=== PATIENT | female | born 1980 | race Caucasian/White ===

== ENCOUNTER 2017-02-15 20:11 | Emergency (ER) | payer MEDICAID, OTHER ==
[2017-02-15 20:36] VITALS: BP 118/74
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
== END 2017-02-15 21:21 | disposition home or self-care (01) ==
LOC: VM.ED 20:11
DX: S92.511A Displaced fracture of proximal phalanx of right lesser toe(s), initial encounter for closed fracture (principal); E11.9 Type 2 diabetes mellitus without complications; F32.9 Major depressive disorder, single episode, unspecified; F41.9 Anxiety disorder, unspecified; Z79.4 Long term (current) use of insulin; W22.03XA Walked into furniture, initial encounter
CPT/HCPCS: 73630-RT; 99283

== ENCOUNTER 2017-03-19 18:56 | Emergency (ER) | payer MEDICAID ==
[2017-03-19 19:46] VITALS: BP 129/79
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
== END 2017-03-19 21:57 | disposition home or self-care (01) ==
LOC: VM.ED 18:56
DX: S09.90XA Unspecified injury of head, initial encounter (principal); S13.4XXA Sprain of ligaments of cervical spine, initial encounter; S00.93XA Contusion of unspecified part of head, initial encounter; E10.9 Type 1 diabetes mellitus without complications; F41.9 Anxiety disorder, unspecified; Y09 Assault by unspecified means
CPT/HCPCS: 70450; 72125; 99285

== ENCOUNTER 2017-04-17 07:07 | Emergency (ER) | payer MEDICAID ==
[2017-04-17] MEDS ORDERED: Tetracaine HCl/PF 0.5% 4 ML Bottle EYERT ONE (07:23)
[2017-04-17] MEDS ORDERED: Fluorescein 1 MG Ophth Strip EYERT ONE (07:24)
[2017-04-17 07:32] VITALS: BP 138/88
--- NOTE | 2017-04-17 07:43 | EDM.PDOC ---
ED HPI GENERAL MEDICAL PROBLEM - General Chief Complaint: Eye Problems Stated Complaint: Patient stated she woke up this morning and "felt a rip when she opened her right eye" with onset of severe pain right eye with eye closed and with movement. Time Seen by Provider: 04/17/17 07:13 Source of Information: Reports: Patient History Limitations: Reports: No Limitations - History of Present Illness INITIAL COMMENTS - FREE TEXT/NARRATIVE: Patient wears contact but takes them out daily at bedtime. No complaints of eye issues when she went to bed last night. Patient also has Type 1 diabetes with poor control. BS run in 200-300 range. She urinates frequently and tends to have very dry mucous membranes per her report. 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: Other (see below) (none) Right Eye Pain Score (Numeric/FACES): 9 - Related Data Allergies Allergy/AdvReac Type Severity Reaction Status Date / Time No Known Allergies Allergy Verified 04/17/17 07:18 Home Meds: Home Meds Insulin Glarg,Human.Rec.Analog [LantUS] 30 unit SUBCUT BEDTIME 02/15/17 [History ] Insulin Lispro [Humalog] 1 unit SQ ASDIRECTED 02/15/17 [History] Sertraline HCl [Zoloft] 200 mg PO DAILY 02/15/17 [History] clonazePAM [Klonopin] 1 mg PO TID PRN 02/15/17 [History] Lurasidone HCl [Latuda] 40 mg DAILY 04/17/17 [History] traZODone HCl [Trazodone HCl] 100 mg DAILY 04/17/17 [History] Past Medical History HEENT History: Reports: Impaired Vision Gastrointestinal History: Reports: Irritable Bowel Syndrome Genitourinary History: Reports: Urinary Incontinence Psychiatric History: Reports: Anxiety Endocrine/Metabolic History: Reports: Diabetes, Type I Other Endocrine/Metabolic History: 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 Constitutional: Reports: No Symptoms HEENT: Reports: Eye Pain (unable to open right eye due to discomfort, mild right eyelid edema) Respiratory: Reports: No Symptoms. Denies: Shortness of Breath, Cough Cardiovascular: Reports: No Symptoms. Denies: Chest Pain, Dyspnea on Exertion, Palpitations Endocrine: Reports: Other (tends to run high blood sugars, see HPI) GI/Abdominal: Reports: No Symptoms. Denies: Abdominal Pain, Nausea, Vomiting Musculoskeletal: Reports: No Symptoms Skin: Reports: No Symptoms Neurological: Reports: No Symptoms Psychiatric: Reports: No Symptoms Hematologic/Lymphatic: Reports: No Symptoms Immunologic: Reports: No Symptoms ED EXAM GENERAL W FULL EYE - Physical Exam Exam: See Below Exam Limited By: No Limitations General Appearance: Alert, WD/WN, Anxious, Other (unable to open right eye due to pain) Eye Exam: Right Eye: Corneal Abrasion (right eye numbed with one drop tetracaine and stained with fluoroscein. Examined with blue light and magnification. Anterior cornea shows mild diffuse corneal uptake of stain in a narrow strip across the iris. No opal ulcerations noted. Eyelash present under lower lid removed with sterile Q tip. No maeve foreign bodies or ulcerations noted on exam. Anterior chamber clear. Tetracaine drop completely resolved eye pain so like corneal surface irritation is source of pain.) Eyelids: Right: Edema (mild lid edema without redness), Foreign Body (eyelash under right lower lid), Lid Everted for Exam, Left: Normal Appearance (colored contact present) Conjunctiva & Sclera: Right: Injected, Left: Normal Appearance Cornea Exam: Right: Corneal Abrasion, Foreign Body, Examined with Flourescein, Left: Normal Appearance Extraocular Movements: Bilateral: Intact Pupils: Normal Accommodation Pupillary Size: Bilateral: 6 mm Pupillary Reaction: Bilateral: Brisk Anterior Chamber: Right: Normal Appearance Ears: Normal External Exam, Normal TMs Nose: Normal Inspection Throat/Mouth: Other (lips mouth and tounge very dry) Head: Atraumatic, Normocephalic Neck: Normal Inspection, Supple, Non-Tender Respiratory/Chest: Lungs Clear, Normal Breath Sounds, No Accessory Muscle Use Cardiovascular: Regular Rate, Rhythm, No JVD, No Murmur, No Rub GI/Abdominal: Soft (Female) Exam: Deferred Rectal (Female) Exam: Deferred Back Exam: Other (deferred) Extremities: Other (deferred) Neurological: Alert, Oriented, CN II-XII Intact Psychiatric: Normal Affect Skin Exam: Warm, Dry, Intact, Normal Color Lymphatic: No Adenopathy ED EYE w/ Add Procedure - Eye Procedure Alcaine Drops Administered: Yes (tetracaine applied to right eye with immediate , complete relief of pain) Eye FB Removal: Removal w/ Cotton Swab (eyelash under right lower eyelid) Eye Irrigated w/ Saline (ccs): 10 Progress: Patient noted complete relief of pain after administration of tetracaine into right eye. The ripping feeling she had this morning was likely adherence of the upper eyelid to cornea due to dryness during the night. No pain noted with eye movements after drop applied. Course - Vital Signs Last Recorded V/S: Last Vital Signs Temp 35.9 C 04/17/17 07:10 Pulse 65 04/17/17 07:10 Resp 16 04/17/17 07:10 BP 138/88 04/17/17 07:10 Pulse Ox - Orders/Labs/Meds Meds: Medications Discontinued Medications Generic Name Dose Route Start Last Admin Trade Name Jana PRN Reason Stop Dose Admin Fluorescein Sodium 1 mg 04/17/17 07:24 04/17/17 07:30 Ful-Janet EYERT 04/17/17 07:25 1 mg ONETIME ONE Administration Tetracaine HCl 1 ml 04/17/17 07:23 04/17/17 07:29 Tetracaine 0.5% Steri-Unit Sendy EYERT 04/17/17 07:24 2 drop ONETIME ONE Administration - Re-Assessments/Exams Free Text/Narrative Re-Assessment/Exam: 04/17/17 08:22 eye exam as noted. Pupils PERRLA and EOMI intact after eye numbed up Departure - Departure Time of Disposition: 07:57 Disposition: Home, Self-Care 01 Condition: Good Clinical Impression: Corneal abrasion Qualifiers: Encounter type: initial encounter Laterality: right Qualified Code(s): S05.01XA - Injury of conjunctiva and corneal abrasion without foreign body, right eye, initial encounter - Discharge Information Instructions: Bacterial Conjunctivitis, [id number] Referrals: Josie Leos, [employer] SERVICE TECHNICIAN [Primary Care Provider] - Forms: ED Department Discharge Additional Instructions: Use antibiotic eye drop one frop right eye four times daily for five days. Tylenol 1000 mg every 8 hours. Take your first day when you get home today. Make an appt with an bead cutter as soon as possible for an eye exam. MLP Sign Off - Signature Requirements MLP Sign Off: Yes
== END 2017-04-17 07:55 | disposition home or self-care (01) ==
LOC: VM.ED 07:07
DX: S05.01XA Injury of conjunctiva and corneal abrasion without foreign body, right eye, initial encounter (principal); F41.9 Anxiety disorder, unspecified; E10.9 Type 1 diabetes mellitus without complications; F17.210 Nicotine dependence, cigarettes, uncomplicated; Z79.899 Other long term (current) drug therapy; X58.XXXA Exposure to other specified factors, initial encounter; Z79.4 Long term (current) use of insulin
CPT/HCPCS: 99283; A9270

== ENCOUNTER 2017-12-19 10:44 | Emergency (ER) | payer MEDICAID ==
[2017-12-19] MEDS ORDERED: Sodium Chloride 0.9% 1,000 ML IV ONE ×2 (11:10→11:39)
[2017-12-19] MEDS ORDERED: Ondansetron 4 MG/2 ML SDV IVPUSH ONE (11:13)
[2017-12-19] MEDS ORDERED: Morphine 4 MG/ML Syringe IVPUSH ONE (11:13)
[2017-12-19] MEDS ORDERED: GI Cocktail Oral Solution 30 ML PO ONE (11:34)
[2017-12-19] MEDS ORDERED: HYDROmorphone 1 MG/ML Syringe IVPUSH ONE (11:34)
--- NOTE | 2017-12-19 11:35 | EDM.PDOC ---
ED HPI GENERAL MEDICAL PROBLEM - General Chief Complaint: Gastrointestinal Problem Stated Complaint: nausea, vomiting, abdominal pain Time Seen by Provider: 12/19/17 11:28 Source of Information: Reports: Patient History Limitations: Reports: No Limitations - History of Present Illness INITIAL COMMENTS - FREE TEXT/NARRATIVE: Patient presents with reports of abdominal pain. She states that this is about 6 -7 days old. She was diagnosed with a urinary tract infection and treated with Bactrim over the last week. Her primary physician is Elza Giraldo at [facility] here in [place]. She is experiencing pain to the left upper abdomen. She rates it as a pressure. Rates pain a 10/10 and is crying on observation. Blood sugar elevated on accu check POC. Onset: Gradual Onset Date: 12/11/17 Duration: Getting Worse Location: Reports: Abdomen Quality: Reports: Pressure Severity: Severe Improves with: Reports: None Worsens with: Reports: Movement Associated Symptoms: Reports: Nausea/Vomiting Headache Pain Score (Numeric/FACES): 8 Epigastric Pain Score (Numeric/FACES): 8 - Related Data Allergies Allergy/AdvReac Type Severity Reaction Status Date / Time ibuprofen AdvReac Stomach Verified 12/19/17 11:24 Upset Home Meds: Home Meds Insulin Glarg,Human.Rec.Analog [LantUS] 35 unit SUBCUT BEDTIME 02/15/17 [History ] Insulin Lispro [Humalog] 1 unit SQ ASDIRECTED 02/15/17 [History] Sertraline HCl [Zoloft] 200 mg PO DAILY 02/15/17 [History] clonazePAM [Klonopin] 1 mg PO TID PRN 02/15/17 [History] Lurasidone HCl [Latuda] 40 mg DAILY 04/17/17 [History] traZODone HCl [Trazodone HCl] 200 mg DAILY 04/17/17 [History] Cyclobenzaprine HCl 1 tab PO TID 10 Days #30 tablet 07/09/17 [Rx] Diazepam [Valium] 10 mg PO BEDTIME 07/09/17 [History] Mupirocin Calcium [Bactroban] 1 dose TP TID 07/09/17 [History] Olopatadine [Patanol 0.1% Ophth Soln] 1 drop EYEBOTH BID 07/09/17 [History] Pregabalin [Lyrica] 200 mg PO BID 07/09/17 [History] atorvaSTATin [Lipitor] 10 mg PO BEDTIME 07/09/17 [History] hydrOXYzine HCl [Atarax] 25 mg PO BEDTIME 07/09/17 [History] Sulfamethoxazole/Trimethoprim [Bactrim Ds Tablet] 1 each PO BID 12/19/17 [ History] Past Medical History HEENT History: Reports: Impaired Vision Gastrointestinal History: Reports: Irritable Bowel Syndrome Other Gastrointestinal History: acid reflux Genitourinary History: Reports: Urinary Incontinence Psychiatric History: Reports: Anxiety Endocrine/Metabolic History: Reports: Diabetes, Type I Other Endocrine/Metabolic History: 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 - Past Surgical History GI Surgical History: Reports: Other (See Below) Other GI Surgeries/Procedures: Esophagus/ stomach repair Musculoskeletal Surgical History: Reports: Hip Replacement Social & Family History - Tobacco Use Smoking Status *Q: Current Every Day Smoker Years of Tobacco use: 14 Packs/Tins Daily: 1 - Recreational Drug Use Recreational Drug Use: No ED ROS GENERAL - Review of Systems Review Of Systems: See Below Constitutional: Reports: No Symptoms HEENT: Reports: No Symptoms Respiratory: Reports: No Symptoms Cardiovascular: Reports: No Symptoms Endocrine: Reports: No Symptoms GI/Abdominal: Reports: Abdominal Pain, Diarrhea, Nausea, Vomiting : Reports: No Symptoms Musculoskeletal: Reports: No Symptoms Skin: Reports: No Symptoms Neurological: Reports: No Symptoms Psychiatric: Reports: No Symptoms Hematologic/Lymphatic: Reports: No Symptoms Immunologic: Reports: No Symptoms ED EXAM, GI/ABD - Physical Exam Exam: See Below Exam Limited By: No Limitations General Appearance: Alert, WD/WN, Moderate Distress Eyes: Bilateral: Normal Appearance, EOMI Ears: Normal TMs Head: Atraumatic, Normocephalic Neck: Normal Inspection, Supple, Non-Tender, Full Range of Motion Respiratory/Chest: No Respiratory Distress, Lungs Clear, Normal Breath Sounds, No Accessory Muscle Use, Chest Non-Tender Cardiovascular: Normal Peripheral Pulses, Regular Rate, Rhythm, No Edema, No Gallop, No JVD, No Murmur, No Rub GI/Abdominal Exam: Normal Bowel Sounds, Soft, No Organomegaly, No Distention, No Mass, Tender Back Exam: Normal Inspection, Full Range of Motion, NT Extremities: Normal Inspection, Normal Range of Motion, Non-Tender, Normal Capillary Refill, No Pedal Edema Neurological: Alert, Oriented, CN II-XII Intact, Normal Cognition, Normal Gait, Normal Reflexes, No Motor/Sensory Deficits Psychiatric: Normal Affect, Normal Mood Skin Exam: Warm, Dry, Intact, Normal Color, No Rash Lymphatic: No Adenopathy Course - Vital Signs Last Recorded V/S: Last Vital Signs Temp 35.3 C 12/19/17 11:25 Pulse 80 12/19/17 15:10 Resp 16 12/19/17 15:10 BP 148/85 H 12/19/17 15:10 Pulse Ox 99 12/19/17 15:10 - Orders/Labs/Meds Orders: Active Orders 24 hr Category Date Time Status Abdomen Pelvis w Cont [CT] Stat Exams 12/19/17 11:39 Taken HCG QUALITATIVE,URINE [URCHEM] Stat Lab 12/19/17 12:07 Ordered UA W/MICROSCOPIC [URIN] Stat Lab 12/19/17 12:07 Ordered Labs: Laboratory Tests 12/19/17 12/19/17 12/19/17 Range/Units 10:55 11:13 11:13 WBC 8.3 (4.0-10.0) x10^3/uL RBC 5.89 H (4.00-5.50) x10^6/uL Hgb 16.5 H (12.0-16.0) g/dL Hct 45.7 (33.0-47.0) % MCV 77.6 L (78.0-93.0) fL MCH 28.0 (26.0-32.0) pg MCHC 36.1 H (32.0-36.0) g/dL RDW Coeff of Roderick 14.4 (10.0-15.0) % Plt Count 300 (130-400) x10^3/uL Neut % (Auto) 76.0 (50.0-80.0) % Lymph % (Auto) 18.8 L (25.0-50.0) % Gage % (Auto) 3.9 (2.0-11.0) % Eos % (Auto) 0.6 (0.0-4.0) % Baso % (Auto) 0.7 (0.2-1.2) % Sodium 132 L (136-145) mmol/L Potassium 4.4 (3.5-5.1) mmol/L Chloride 98 (98-107) mmol/L Carbon Dioxide 11 L (21-32) mmol/L Anion Gap 27.4 BUN 9 (7-18) mg/dL Creatinine 1.0 (0.55-1.02) mg/dL Est Cr Clr Drug Dosing 82.06 mL/min Estimated GFR (MDRD) > 60 Glucose 353 H (74-106) mg/dL POC Glucose 320 H (74-106) mg/dL Calcium 8.6 (8.5-10.1) mg/dL Corrected Calcium 8.44 L (8.5-10.1) mg/dL Total Bilirubin 0.7 (0.2-1.0) mg/dL AST 15 (15-37) U/L ALT 17 (14-59) U/L Alkaline Phosphatase 153 H (46-116) U/L Total Protein 8.4 H (6.4-8.2) g/dL Albumin 4.2 (3.4-5.0) g/dL Globulin 4.2 Albumin/Globulin Ratio 1.00 Amylase (25-115) U/L Urine Color (YELLOW) Urine Appearance (CLEAR) Urine pH (5.0-8.0) Ur Specific Dodson Urine Protein (NEGATIVE) mg/dL Urine Glucose (UA) (NEGATIVE) mg/dL Urine Ketones (NEGATIVE) mg/dL Urine Occult Blood (NEGATIVE) Urine Nitrite (NEGATIVE) Urine Bilirubin (NEGATIVE) Urine Urobilinogen (0.2) EU/dL Ur Leukocyte Esterase (NEGATIVE) Urine RBC (NOT SEEN) /HPF Urine WBC (NOT SEEN) /HPF Ur Squamous Epith Cells (NEGATIVE) /HPF Urine Bacteria (NEGATIVE) /HPF Urine Mucus (NEGATIVE) /LPF Urine HCG, Qual (NEGATIVE) 12/19/17 12/19/17 12/19/17 Range/Units 11:13 12:07 12:07 WBC (4.0-10.0) x10^3/uL RBC (4.00-5.50) x10^6/uL Hgb (12.0-16.0) g/dL Hct (33.0-47.0) % MCV (78.0-93.0) fL MCH (26.0-32.0) pg MCHC (32.0-36.0) g/dL RDW Coeff of Roderick (10.0-15.0) % Plt Count (130-400) x10^3/uL Neut % (Auto) (50.0-80.0) % Lymph % (Auto) (25.0-50.0) % Gage % (Auto) (2.0-11.0) % Eos % (Auto) (0.0-4.0) % Baso % (Auto) (0.2-1.2) % Sodium (136-145) mmol/L Potassium (3.5-5.1) mmol/L Chloride (98-107) mmol/L Carbon Dioxide (21-32) mmol/L Anion Gap BUN (7-18) mg/dL Creatinine (0.55-1.02) mg/dL Est Cr Clr Drug Dosing mL/min Estimated GFR (MDRD) Glucose (74-106) mg/dL POC Glucose (74-106) mg/dL Calcium (8.5-10.1) mg/dL Corrected Calcium (8.5-10.1) mg/dL Total Bilirubin (0.2-1.0) mg/dL AST (15-37) U/L ALT (14-59) U/L Alkaline Phosphatase (46-116) U/L Total Protein (6.4-8.2) g/dL Albumin (3.4-5.0) g/dL Globulin Albumin/Globulin Ratio Amylase 6 L (25-115) U/L Urine Color Light yellow (YELLOW) Urine Appearance Slightly cloudy H (CLEAR) Urine pH 5.5 (5.0-8.0) Ur Specific Dodson >=1.030 Urine Protein 30 H (NEGATIVE) mg/dL Urine Glucose (UA) 500 H (NEGATIVE) mg/dL Urine Ketones 80 H (NEGATIVE) mg/dL Urine Occult Blood Negative (NEGATIVE) Urine Nitrite Negative (NEGATIVE) Urine Bilirubin Small H (NEGATIVE) Urine Urobilinogen 0.2 (0.2) EU/dL Ur Leukocyte Esterase Negative (NEGATIVE) Urine RBC 0-5 (NOT SEEN) /HPF Urine WBC 0-5 (NOT SEEN) /HPF Ur Squamous Epith Cells Many H (NEGATIVE) /HPF Urine Bacteria Not seen (NEGATIVE) /HPF Urine Mucus Not seen (NEGATIVE) /LPF Urine HCG, Qual Negative (NEGATIVE) Meds: Medications Discontinued Medications Generic Name Dose Route Start Last Admin Trade Name Freq PRN Reason Stop Dose Admin Al Hydroxide/Mg Hydroxide 30 ml 04/15/18 11:34 12/19/17 11:37 Gi Cocktail PO 12/19/17 11:35 30 ml ONETIME ONE Administration Hydromorphone HCl 1 mg 12/19/17 11:34 12/19/17 11:37 Dilaudid IVPUSH 12/19/17 11:35 1 mg ONETIME ONE Administration Sodium Chloride 1,000 mls @ 999 mls/hr 12/19/17 11:10 12/19/17 11:20 Normal Saline IV 12/19/17 12:10 999 mls/hr ONETIME ONE Administration Sodium Chloride 1,000 mls @ 999 mls/hr 12/19/17 11:39 12/19/17 13:10 Normal Saline IV 12/19/17 12:39 999 mls/hr ONETIME ONE Administration Iopamidol 100 ml 12/19/17 12:41 12/19/17 13:28 Isovue-300 (61%) IVPUSH 12/19/17 12:42 100 ml ONETIME ONE Administration Morphine Sulfate 4 mg 12/19/17 11:13 12/19/17 11:20 Morphine IVPUSH 12/19/17 11:14 4 mg ONETIME ONE Administration Ondansetron HCl 4 mg 12/19/17 11:13 12/19/17 11:15 Zofran IVPUSH 12/19/17 11:14 4 mg ONETIME ONE Administration Ondansetron HCl 1 packet 12/19/17 14:09 12/19/17 14:16 Take Home: Ondansetron Odt 4 Mg, 2 Tab Pack PO 12/19/17 14:10 1 packet ONETIME ONE Administration Departure - Departure Time of Disposition: 14:10 Disposition: Home, Self-Care 01 Condition: Fair Clinical Impression: Abdominal pain - Discharge Information Instructions: Ondansetron oral dissolving tablet, Nausea and Vomiting, Adult, [id number], Abdominal Pain, Adult, [id number] Referrals: Josie Leos NP [Primary Care Provider] - Forms: ED Department Discharge Additional Instructions: Stay well hydrated. Your CT and labs did not indicate a acute reason for the abdominal pain you experienced. Your UTI is improving. No kidney involvement seen on urine screen. Take some tylenol as needed for additional pain management. Follow up with your primary doctor as symptoms warrant. Please call with any questions or concerns. - Problem List & Annotations (1) Abdominal pain SNOMED Code(s): 48737222 Code(s): R10.9 - UNSPECIFIED ABDOMINAL PAIN Status: Acute Priority: Low Current Visit: Yes - Problem List Review Problem List Initiated/Reviewed/Updated: Yes - My Orders Last 24 Hours: My Active Orders 12/19/17 11:39 Abdomen Pelvis w Cont [CT] Stat 12/19/17 12:07 HCG QUALITATIVE,URINE [URCHEM] Stat UA W/MICROSCOPIC [URIN] Stat - Assessment/Plan Last 24 Hours: My Active Orders 12/19/17 11:39 Abdomen Pelvis w Cont [CT] Stat 12/19/17 12:07 HCG QUALITATIVE,URINE [URCHEM] Stat UA W/MICROSCOPIC [URIN] Stat Assessment:: abdominal pain Plan: Stay well hydrated. Your CT and labs did not indicate a acute reason for the abdominal pain you experienced. Your UTI is improving. No kidney involvement seen on urine screen. Take some tylenol as needed for additional pain management. Follow up with your primary doctor as symptoms warrant. Please call with any questions or concerns.
[2017-12-19 11:49] LABS: CHLORIDE,CL 98 mmol/L (98-107); SODIUM,NA 132 mmol/L (136-145)
[2017-12-19] MEDS ORDERED: Iopamidol 612 MG/ML 100 ML Bottle IVPUSH ONE (12:41)
[2017-12-19] MEDS ORDERED: Take Home: Ondansetron 4 MG Tab.DIS, 2 Tab Pack PO ONE (14:09)
[2017-12-19 15:11] VITALS: BP 148/85
== END 2017-12-19 14:10 | disposition home or self-care (01) ==
LOC: VM.ED 10:44
DX: R10.12 Left upper quadrant pain (principal); R10.13 Epigastric pain; E10.9 Type 1 diabetes mellitus without complications; F41.9 Anxiety disorder, unspecified; F17.210 Nicotine dependence, cigarettes, uncomplicated; Z87.440 Personal history of urinary (tract) infections; Z88.6 Allergy status to analgesic agent; Z79.899 Other long term (current) drug therapy
CPT/HCPCS: 74177; 80053; 81001; 81025; 82150; 82962; 85025; 96361; 96374; 96375; 99284; A9270-GY; J1170; J2270; J2405; J7030; Q9967

== ENCOUNTER 2017-12-19 17:00 | Emergency (ER) | payer MEDICAID ==
[2017-12-19] MEDS ORDERED: Sodium Chloride 0.9% 10 ML Syringe FLUSH PRN (17:33)
[2017-12-19] MEDS ORDERED: GI Cocktail Oral Solution 30 ML PO ONE (17:33)
[2017-12-19] MEDS ORDERED: HYDROmorphone 1 MG/ML Syringe IVPUSH ONE (17:33)
[2017-12-19] MEDS ORDERED: Ondansetron 4 MG/2 ML SDV IVPUSH ONE (17:33)
[2017-12-19] MEDS ORDERED: LORazepam 2 MG/ML SDV IVPUSH ONE (17:34)
[2017-12-19] MEDS ORDERED: methylPREDNISolone Sodium Succinate 125 MG/2 ML SDV IVPUSH ONE (19:11)
[2017-12-19] MEDS ORDERED: Sodium Chloride 0.9% 1,000 ML IV ONE (19:11)
[2017-12-19] MEDS ORDERED: Pantoprazole 40 MG Vial IVPUSH ONE (19:12)
[2017-12-19 19:37] VITALS: BP 156/97
[2017-12-19] MEDS ORDERED: Take Home: Acetaminophen/HYDROcodone 325-10 MG, 5 Tab Pack PO ONE (20:20)
--- NOTE | 2017-12-19 21:14 | EDM.PDOC ---
ED HPI GENERAL MEDICAL PROBLEM - General Chief Complaint: Abdominal Pain Stated Complaint: abdominal pain Time Seen by Provider: 12/19/17 17:26 Source of Information: Reports: Patient History Limitations: Reports: No Limitations - History of Present Illness INITIAL COMMENTS - FREE TEXT/NARRATIVE: Patient was seen earlier today with similar complaints. She has upper abdominal pain. Prior labs and CT showed no acute process. No change in symptoms, just a return of them after her medications have worn off. Reports abdominal pain for 6-7 days Onset: Gradual Onset Date: 12/12/17 Duration: Intermittent Location: Reports: Abdomen Epigastric Pain Score (Numeric/FACES): 9 Headache Pain Score (Numeric/FACES): 9 - Related Data Allergies Allergy/AdvReac Type Severity Reaction Status Date / Time ibuprofen AdvReac Stomach Verified 12/19/17 11:24 Upset Home Meds: Home Meds Insulin Glarg,Human.Rec.Analog [LantUS] 35 unit SUBCUT BEDTIME 02/15/17 [History ] Insulin Lispro [Humalog] 1 unit SQ ASDIRECTED 02/15/17 [History] Sertraline HCl [Zoloft] 200 mg PO DAILY 02/15/17 [History] clonazePAM [Klonopin] 1 mg PO TID PRN 02/15/17 [History] Lurasidone HCl [Latuda] 40 mg DAILY 04/17/17 [History] traZODone HCl [Trazodone HCl] 200 mg DAILY 04/17/17 [History] Cyclobenzaprine HCl 1 tab PO TID 10 Days #30 tablet 07/09/17 [Rx] Diazepam [Valium] 10 mg PO BEDTIME 07/09/17 [History] Mupirocin Calcium [Bactroban] 1 dose TP TID 07/09/17 [History] Olopatadine [Patanol 0.1% Ophth Soln] 1 drop EYEBOTH BID 07/09/17 [History] Pregabalin [Lyrica] 200 mg PO BID 07/09/17 [History] atorvaSTATin [Lipitor] 10 mg PO BEDTIME 07/09/17 [History] hydrOXYzine HCl [Atarax] 25 mg PO BEDTIME 07/09/17 [History] Sulfamethoxazole/Trimethoprim [Bactrim Ds Tablet] 1 each PO BID 12/19/17 [ History] Past Medical History HEENT History: Reports: Impaired Vision Gastrointestinal History: Reports: Irritable Bowel Syndrome Other Gastrointestinal History: acid reflux Genitourinary History: Reports: Urinary Incontinence Other Genitourinary History: Current UTI Psychiatric History: Reports: Anxiety Endocrine/Metabolic History: Reports: Diabetes, Type I Other Endocrine/Metabolic History: 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 ED EXAM, GI/ABD - Physical Exam Exam: Not Obtained Course - Vital Signs Last Recorded V/S: Last Vital Signs Temp 37.1 C 12/19/17 17:25 Pulse 93 12/19/17 17:25 Resp 16 12/19/17 17:25 BP 156/97 H 12/19/17 19:00 Pulse Ox 98 12/19/17 19:00 - Orders/Labs/Meds Orders: Active Orders 24 hr Category Date Time Status Sodium Chloride 0.9% [Saline Flush] Med 12/19/17 17:33 Active 10 ml FLUSH ASDIRECTED PRN Saline Lock Insert [OM.PC] Routine Oth 12/19/17 17:33 Ordered Medication Orders Sodium Chloride (Saline Flush) 10 ml FLUSH ASDIRECTED PRN PRN Reason: Keep Vein Open Meds: Medications Generic Name Dose Route Start Last Admin Trade Name Freq PRN Reason Stop Dose Admin Sodium Chloride 10 ml 12/19/17 17:33 Saline Flush FLUSH ASDIRECTED PRN Keep Vein Open Discontinued Medications Generic Name Dose Route Start Last Admin Trade Name Freq PRN Reason Stop Dose Admin Hydrocodone Bitart/Acetaminophen 1 packet 12/19/17 20:20 12/19/17 21:23 Take Home: Acetaminophen/Hydrocodone 325-10mg PO 12/19/17 20:21 1 packet ONETIME ONE Administration Al Hydroxide/Mg Hydroxide 30 ml 12/19/17 17:33 12/19/17 17:40 Gi Cocktail PO 12/19/17 17:34 30 ml ONETIME ONE Administration Hydromorphone HCl 1 mg 12/19/17 17:33 12/19/17 17:39 Dilaudid IVPUSH 12/19/17 17:34 1 mg ONETIME ONE Administration Sodium Chloride 1,000 mls @ 999 mls/hr 12/19/17 19:11 12/19/17 19:27 Normal Saline IV 12/19/17 20:11 999 mls/hr ONETIME ONE Administration Lorazepam 0.5 mg 12/19/17 17:34 12/19/17 17:40 Ativan IVPUSH 12/19/17 17:35 0.5 mg ONETIME ONE Administration Methylprednisolone Sodium Succinate 125 mg 12/19/17 19:11 Solu-Medrol IVPUSH 12/19/17 19:12 ONETIME ONE Ondansetron HCl 4 mg 12/19/17 17:33 12/19/17 17:40 Zofran IVPUSH 12/19/17 17:34 4 mg ONETIME ONE Administration Pantoprazole Sodium 40 mg 12/19/17 19:12 12/19/17 19:28 Protonix Iv IVPUSH 12/19/17 19:13 40 mg ONETIME ONE Administration - Re-Assessments/Exams Free Text/Narrative Re-Assessment/Exam: 12/19/17 22:26 Patient given additional zofran, dilaudid, ativan, hydration. Given take home pack of hydrocodone. Re educated and encouraged to follow up at the clinic tomorrow. Departure - Departure Time of Disposition: 22:10 Disposition: Home, Self-Care 01 Condition: Fair Clinical Impression: Abdominal pain - Discharge Information Instructions: Nausea and Vomiting, Adult, [id number], Abdominal Pain, Adult, [id number] Referrals: Josie Leos [employer]CH[employer]IC [Primary Care Provider] - Forms: ED Department Discharge - My Orders Last 24 Hours: My Active Orders 12/19/17 17:33 Sodium Chloride 0.9% [Saline Flush] 10 ml FLUSH ASDIRECTED PRN Saline Lock Insert [OM.PC] Routine - Assessment/Plan Last 24 Hours: My Active Orders 12/19/17 17:33 Sodium Chloride 0.9% [Saline Flush] 10 ml FLUSH ASDIRECTED PRN Saline Lock Insert [OM.PC] Routine
== END 2017-12-19 22:10 | disposition home or self-care (01) ==
LOC: VM.ED 17:00
DX: R10.10 Upper abdominal pain, unspecified (principal); R10.13 Epigastric pain; E10.9 Type 1 diabetes mellitus without complications; F17.210 Nicotine dependence, cigarettes, uncomplicated; Z79.899 Other long term (current) drug therapy; Z88.6 Allergy status to analgesic agent
CPT/HCPCS: 96365; 96366; 96375; 99284; A9270-GY; C9113; J1170; J2060; J2405; J7030

== ENCOUNTER 2017-12-26 14:12 | Emergency (ER) | payer MEDICAID ==
[2017-12-26] MEDS ORDERED: Rocuronium 50 MG/5 ML Vial ONE (14:19)
[2017-12-26] MEDS ORDERED: Succinylcholine 200 MG/10 ML MDV ONE (14:19)
[2017-12-26] MEDS ORDERED: Insulin Regular, Human 100 Units/ML 3 ML Vial ONE (14:33)
[2017-12-26] MEDS ORDERED: Sodium Chloride 0.9% 10 ML Syringe FLUSH PRN (14:42)
[2017-12-26] MEDS ORDERED: Rocuronium 50 MG/5 ML Vial IV ONE (14:47)
[2017-12-26] MEDS ORDERED: Midazolam 1 MG/ML 2 ML SDV IVPUSH ONE (14:47)
[2017-12-26] MEDS ORDERED: Piperacillin/Tazobactam 4.5 GM Vial ONE (15:15)
[2017-12-26 15:33] LABS: SODIUM,NA 127 mmol/L (138-146)
[2017-12-26 15:34] LABS: CHLORIDE,CL 107 mmol/L (98-109)
[2017-12-26] MEDS ORDERED: Sodium Bicarbonate 8.4% 50 MEQ/50 ML Syringe IVPUSH ONE (15:36)
--- NOTE | 2017-12-26 15:56 | EDM.PDOC ---
ED HPI GENERAL MEDICAL PROBLEM - General Chief Complaint: Respiratory Problem Time Seen by Provider: 12/26/17 14:12 Source of Information: Reports: EMS, Family History Limitations: Reports: No Limitations - History of Present Illness INITIAL COMMENTS - FREE TEXT/NARRATIVE: Pt. presents to ER via EMS. Pt. is going through a divorce and her children were with her ex ths past weekend. Pt. has a history of uncontrolled DM. Ex states that she has been admitted for DKA and respiratory failure in the past. He states that he is not sure who her primary care provider is. EMS states that her children were at their father's residence this past weekend and when they were dropped off at pt. residence today, they found her on the sofa, minimal responsive. EMS was summoned. Pt. was transported to [facility] ER. She was uresponsive during the transport. She did have a bottle of suboxone with a few tablets left, and there is a phone note in [employer] system looking for a suboxone prescriber. Pt. was seen in ER on 12/19/17 by JULIANA Olivarez, with complaints of abdominal pain, nausea, and vomiting. Pt. blood sugar at that time was around 400mg/dl. EMS did achieve IV access and she was given a total of 0.8mg of Narcan IV which did not improve her LOC. There was no evidence trauma, according to EMS. Location: Reports: Generalized Associated Symptoms: Reports: Confusion, Malaise - Related Data Allergies Allergy/AdvReac Type Severity Reaction Status Date / Time ibuprofen AdvReac Stomach Verified 12/19/17 11:24 Upset Home Meds: Home Meds Insulin Glarg,Human.Rec.Analog [LantUS] 35 unit SUBCUT BEDTIME 02/15/17 [History ] Insulin Lispro [Humalog] 1 unit SQ ASDIRECTED 02/15/17 [History] Sertraline HCl [Zoloft] 200 mg PO DAILY 02/15/17 [History] clonazePAM [Klonopin] 1 mg PO TID PRN 02/15/17 [History] Lurasidone HCl [Latuda] 40 mg DAILY 04/17/17 [History] traZODone HCl [Trazodone HCl] 200 mg DAILY 04/17/17 [History] Cyclobenzaprine HCl 1 tab PO TID 10 Days #30 tablet 07/09/17 [Rx] Diazepam [Valium] 10 mg PO BEDTIME 07/09/17 [History] Mupirocin Calcium [Bactroban] 1 dose TP TID 07/09/17 [History] Olopatadine [Patanol 0.1% Ophth Soln] 1 drop EYEBOTH BID 07/09/17 [History] Pregabalin [Lyrica] 200 mg PO BID 07/09/17 [History] atorvaSTATin [Lipitor] 10 mg PO BEDTIME 07/09/17 [History] hydrOXYzine HCl [Atarax] 25 mg PO BEDTIME 07/09/17 [History] Sulfamethoxazole/Trimethoprim [Bactrim Ds Tablet] 1 each PO BID 12/19/17 [ History] Past Medical History HEENT History: Reports: Impaired Vision Gastrointestinal History: Reports: Irritable Bowel Syndrome Other Gastrointestinal History: acid reflux Genitourinary History: Reports: Urinary Incontinence Other Genitourinary History: Current UTI Psychiatric History: Reports: Anxiety Endocrine/Metabolic History: Reports: Diabetes, Type I Other Endocrine/Metabolic History: 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 - Past Surgical History GI Surgical History: Reports: Other (See Below) Other GI Surgeries/Procedures: Esophagus/ stomach repair Musculoskeletal Surgical History: Reports: Hip Replacement Social & Family History - Tobacco Use Smoking Status *Q: Current Every Day Smoker Years of Tobacco use: 20 Packs/Tins Daily: 1 - Recreational Drug Use Recreational Drug Use: No ED ROS GENERAL - Review of Systems Review Of Systems: Unable To Obtain (Pt. is responsive to painful stimuli only. See HPI.) GI/Abdominal: Reports: Nausea, Vomiting ED EXAM, GENERAL - Physical Exam Exam: See Below Exam Limited By: Altered Mental Status General Appearance: Obtunded Eye Exam: Bilateral Eye: Normal Fundi, Normal Inspection, PERRL Nose: Normal Inspection, Normal Mucosa Throat/Mouth: Other (Extremely dry oral mucosa. Dried, brownish red material noted in oropharynx and on teeth. Upper dentures noted and removed during intubation.) Head: Atraumatic, Normocephalic Neck: Normal Inspection, Supple, Full Range of Motion. No: Lymphadenopathy (L) , Lymphadenopathy (R), Thyromegaly Respiratory/Chest: Respiratory Distress, Decreased Breath Sounds, Crackles, Rhonchi, Wheezing, Other (agonal breathing noted. ) Cardiovascular: Normal Peripheral Pulses, No Edema, No Gallop, No JVD, No Murmur , No Rub, Tachycardia Peripheral Pulses: 4+: Radial (L), Radial (R), Femoral (L), Femoral (R) GI/Abdominal: Normal Bowel Sounds, Soft, No Organomegaly, No Distention, No Mass , Pelvis Stable. No: Guarding, Rigid, Tender, Hepatomegaly, Splenomegaly (Female) Exam: Deferred Rectal (Female) Exam: Deferred Back Exam: Normal Inspection, Full Range of Motion Extremities: Normal Inspection, Normal Capillary Refill, Pallor, Other (No spontaneous extremity movement). No: Pedal Edema Neurological: CN II-XII Intact, Disoriented, Unresponsive Psychiatric: Normal Affect, Normal Mood Skin Exam: Dry, Intact, Normal Color, No Rash, Cool Lymphatic: No Adenopathy ED GENERAL MEDICAL PROCEDURES - Endotracheal Intubation Time of Intubation: 14:30 ET Intubation Indication: Respiratory Failure, Airway Protection Preparation: Suction, Balloon Tested, BVM Set Up, Difficult Airway Equip Airway Assessment: Other (Dentures. Otherwise ) Pre-Oxygenation: 100% FiO2 Anesthesia Meds: Fentanyl (150mcg), Ketamine (120mg), Succinylcholine (100mg), Other (versed 2mg) Placement: Orotracheal Cords Visualized: Yes, Grade 1 Number of Attempts: 1 Confirmed By: CO2 Indicator, Bilateral Breath Sounds Tube Secured By: By Provider Endotracheal Intubation Comment: 7.5 ETT. Stylet was used. 4.0 MAC blade. - Additional/Other Procedure(s) Other (Free Text) Procedure(s): ABG drawn from R femoral artery EKG INTERPRETATION EKG Date: 12/26/17 Rhythm: NSR Mutual: Normal P-Wave: Present QRS: Normal ST-T: Normal QT: Normal Comparison: NA - No Prior EKG Course - Orders/Labs/Meds Orders: Active Orders 24 hr Category Date Time Status Blood Glucose Check, Bedside [RC] ONETIME Care 12/26/17 15:26 Active EKG Documentation Completion [RC] STAT Care 12/26/17 14:41 Active Chest 1V Frontal [CR] Stat Exams 12/26/17 14:41 Taken CULTURE BLOOD [BC] Stat Lab 12/26/17 14:50 Results CULTURE BLOOD [BC] Stat Lab 12/26/17 14:55 Results CULTURE URINE [RM] Routine Lab 12/26/17 14:50 Received UA W/MICROSCOPIC [URIN] Routine Lab 12/26/17 14:50 Results Propofol [Diprivan 50 ML] 50 ml Med 12/26/17 15:00 Active IV .TITRATE Sodium Chloride 0.9% [Saline Flush] Med 12/26/17 14:42 Active 10 ml FLUSH ASDIRECTED PRN Blood Culture x2 Reflex Set [OM.PC] Stat Oth 12/26/17 14:42 Ordered Peripheral IV Insertion Adult [OM.PC] Routine Oth 12/26/17 14:42 Ordered Medication Orders Propofol (Diprivan 50 Ml) 50 mls @ 7.326 mls/hr IV .TITRATE VIVIANA; Protocol Sodium Chloride (Saline Flush) 10 ml FLUSH ASDIRECTED PRN PRN Reason: Keep Vein Open Labs: Laboratory Tests 12/26/17 12/26/17 12/26/17 Range/Units 14:30 14:33 14:37 WBC 51.3 H* (4.0-10.0) x10^3/uL RBC 5.00 (4.00-5.50) x10^6/uL Hgb 14.3 D (12.0-16.0) g/dL Hct 40.1 (33.0-47.0) % MCV 80.2 (78.0-93.0) fL MCH 28.6 (26.0-32.0) pg MCHC 35.7 (32.0-36.0) g/dL RDW Coeff of Roderick 15.1 H (10.0-15.0) % Plt Count 586 H D (130-400) x10^3/uL Add Manual Diff Yes Neutrophils % (Manual) 74 (50-80) % Band Neutrophils % 3 (0-6) % Lymphocytes % (Manual) 22 L (25-50) % Monocytes % (Manual) 1 L (2-11) % Platelet Estimate Increased H PT (9.8-11.8) SEC INR (2.0-3.5) D-Dimer, Quantitative (<=0.58) mg/LFEU POC ABG pH (7.35-7.45) POC ABG pCO2 (35-45) mmHG POC ABG pO2 (80-105) mmHG POC ABG HCO3 (22-26) mmol/L POC ABG O2 Sat (95-98) % POC FiO2 POC Sodium Cancelled Sodium (138-146) mmol/L POC Potassium Cancelled Potassium (3.5-4.9) mmol/L POC Chloride Cancelled Chloride (98-109) mmol/L Carbon Dioxide (24-29) mmol/L POC Total CO2 Cancelled Anion Gap (10-20) mmol/L POC Anion Gap Cancelled POC BUN Cancelled BUN (8-26) mg/dL Creatinine (0.6-1.3) mg/dL POC Creatinine Cancelled Est Cr Clr Drug Dosing Estimated GFR (MDRD) Glucose (70-105) mg/dL POC Glucose Cancelled > 500 H* Lactic Acid (0.4-2.0) mmol/L Calcium (8.5-10.1) mg/dL Corrected Calcium (8.5-10.1) mg/dL Phosphorus (2.6-4.7) mg/dL Magnesium (1.8-2.4) mg/dL Total Bilirubin (0.2-1.0) mg/dL AST (15-37) U/L ALT (14-59) U/L Alkaline Phosphatase (46-116) U/L POC Troponin I (0.00-0.08) ng/mL NT-Pro-B Natriuret Pep (<=125) pg/mL Total Protein (6.4-8.2) g/dL Albumin (3.4-5.0) g/dL Globulin g/dL Albumin/Globulin Ratio TSH, Ultra Sensitive (0.358-3.74) uIU/mL POC Result Comm Urine Color (YELLOW) Urine Appearance (CLEAR) Urine pH (5.0-8.0) Ur Specific Webb Urine Protein (NEGATIVE) mg/dL Urine Glucose (UA) (NEGATIVE) mg/dL Urine Ketones (NEGATIVE) mg/dL Urine Occult Blood (NEGATIVE) Urine Nitrite (NEGATIVE) Urine Bilirubin (NEGATIVE) Urine Urobilinogen (0.2) EU/dL Ur Leukocyte Esterase (NEGATIVE) Urine Opiates Screen (NEGATIVE) Ur Buprenorphine Scrn (NEGATIVE) Ur Oxycodone Screen (NEGATIVE) Urine Methadone Screen (NEGATIVE) Ur Barbiturates Screen (NEGATIVE) Ur Tricyclics Screen (NEGATIVE) Ur Amphetamine Screen (NEGATIVE) U Methamphetamines Scrn (NEGATIVE) Urine MDMA Screen (NEGATIVE) U Benzodiazepines Scrn (NEGATIVE) U Cocaine Metab Screen (NEGATIVE) U Marijuana (THC) Screen (NEGATIVE) 12/26/17 12/26/17 12/26/17 Range/Units 14:39 14:41 14:41 WBC (4.0-10.0) x10^3/uL RBC (4.00-5.50) x10^6/uL Hgb (12.0-16.0) g/dL Hct (33.0-47.0) % MCV (78.0-93.0) fL MCH (26.0-32.0) pg MCHC (32.0-36.0) g/dL RDW Coeff of Roderick (10.0-15.0) % Plt Count (130-400) x10^3/uL Add Manual Diff Neutrophils % (Manual) (50-80) % Band Neutrophils % (0-6) % Lymphocytes % (Manual) (25-50) % Monocytes % (Manual) (2-11) % Platelet Estimate PT (9.8-11.8) SEC INR (2.0-3.5) D-Dimer, Quantitative (<=0.58) mg/LFEU POC ABG pH (7.35-7.45) POC ABG pCO2 (35-45) mmHG POC ABG pO2 (80-105) mmHG POC ABG HCO3 (22-26) mmol/L POC ABG O2 Sat (95-98) % POC FiO2 POC Sodium Sodium 127 L* (138-146) mmol/L POC Potassium Potassium 7.0 H* (3.5-4.9) mmol/L POC Chloride Chloride 107 (98-109) mmol/L Carbon Dioxide 7 L (24-29) mmol/L POC Total CO2 Anion Gap 20.0 (10-20) mmol/L POC Anion Gap POC BUN BUN 42 H (8-26) mg/dL Creatinine 2.6 H (0.6-1.3) mg/dL POC Creatinine Est Cr Clr Drug Dosing TNP Estimated GFR (MDRD) 21 Glucose 682 H* (70-105) mg/dL POC Glucose Lactic Acid 1.5 (0.4-2.0) mmol/L Calcium 7.0 L D (8.5-10.1) mg/dL Corrected Calcium 8.12 L (8.5-10.1) mg/dL Phosphorus 12.3 H (2.6-4.7) mg/dL Magnesium 2.6 H (1.8-2.4) mg/dL Total Bilirubin 0.5 (0.2-1.0) mg/dL AST 119 H (15-37) U/L ALT 34 (14-59) U/L Alkaline Phosphatase 201 H (46-116) U/L POC Troponin I 0.05 (0.00-0.08) ng/mL NT-Pro-B Natriuret Pep 4839 H (<=125) pg/mL Total Protein 5.7 L (6.4-8.2) g/dL Albumin 2.6 L (3.4-5.0) g/dL Globulin 3.1 g/dL Albumin/Globulin Ratio 0.84 TSH, Ultra Sensitive 6.718 H (0.358-3.74) uIU/mL POC Result Comm Urine Color (YELLOW) Urine Appearance (CLEAR) Urine pH (5.0-8.0) Ur Specific Webb Urine Protein (NEGATIVE) mg/dL Urine Glucose (UA) (NEGATIVE) mg/dL Urine Ketones (NEGATIVE) mg/dL Urine Occult Blood (NEGATIVE) Urine Nitrite (NEGATIVE) Urine Bilirubin (NEGATIVE) Urine Urobilinogen (0.2) EU/dL Ur Leukocyte Esterase (NEGATIVE) Urine Opiates Screen (NEGATIVE) Ur Buprenorphine Scrn (NEGATIVE) Ur Oxycodone Screen (NEGATIVE) Urine Methadone Screen (NEGATIVE) Ur Barbiturates Screen (NEGATIVE) Ur Tricyclics Screen (NEGATIVE) Ur Amphetamine Screen (NEGATIVE) U Methamphetamines Scrn (NEGATIVE) Urine MDMA Screen (NEGATIVE) U Benzodiazepines Scrn (NEGATIVE) U Cocaine Metab Screen (NEGATIVE) U Marijuana (THC) Screen (NEGATIVE) 12/26/17 12/26/17 12/26/17 Range/Units 14:50 14:50 14:50 WBC (4.0-10.0) x10^3/uL RBC (4.00-5.50) x10^6/uL Hgb (12.0-16.0) g/dL Hct (33.0-47.0) % MCV (78.0-93.0) fL MCH (26.0-32.0) pg MCHC (32.0-36.0) g/dL RDW Coeff of Roderick (10.0-15.0) % Plt Count (130-400) x10^3/uL Add Manual Diff Neutrophils % (Manual) (50-80) % Band Neutrophils % (0-6) % Lymphocytes % (Manual) (25-50) % Monocytes % (Manual) (2-11) % Platelet Estimate PT 17.1 H (9.8-11.8) SEC INR 1.6 L (2.0-3.5) D-Dimer, Quantitative 2.64 H (<=0.58) mg/LFEU POC ABG pH (7.35-7.45) POC ABG pCO2 (35-45) mmHG POC ABG pO2 (80-105) mmHG POC ABG HCO3 (22-26) mmol/L POC ABG O2 Sat (95-98) % POC FiO2 POC Sodium Sodium (138-146) mmol/L POC Potassium Potassium (3.5-4.9) mmol/L POC Chloride Chloride (98-109) mmol/L Carbon Dioxide (24-29) mmol/L POC Total CO2 Anion Gap (10-20) mmol/L POC Anion Gap POC BUN BUN (8-26) mg/dL Creatinine (0.6-1.3) mg/dL POC Creatinine Est Cr Clr Drug Dosing Estimated GFR (MDRD) Glucose (70-105) mg/dL POC Glucose Lactic Acid (0.4-2.0) mmol/L Calcium (8.5-10.1) mg/dL Corrected Calcium (8.5-10.1) mg/dL Phosphorus (2.6-4.7) mg/dL Magnesium (1.8-2.4) mg/dL Total Bilirubin (0.2-1.0) mg/dL AST (15-37) U/L ALT (14-59) U/L Alkaline Phosphatase (46-116) U/L POC Troponin I (0.00-0.08) ng/mL NT-Pro-B Natriuret Pep (<=125) pg/mL Total Protein (6.4-8.2) g/dL Albumin (3.4-5.0) g/dL Globulin g/dL Albumin/Globulin Ratio TSH, Ultra Sensitive (0.358-3.74) uIU/mL POC Result Comm Urine Color Yellow (YELLOW) Urine Appearance Clear (CLEAR) Urine pH 5.5 (5.0-8.0) Ur Specific Webb 1.015 Urine Protein 30 H (NEGATIVE) mg/dL Urine Glucose (UA) 500 H (NEGATIVE) mg/dL Urine Ketones >=160 H (NEGATIVE) mg/dL Urine Occult Blood Trace-intact H (NEGATIVE) Urine Nitrite Negative (NEGATIVE) Urine Bilirubin Negative (NEGATIVE) Urine Urobilinogen 0.2 (0.2) EU/dL Ur Leukocyte Esterase Negative (NEGATIVE) Urine Opiates Screen Negative (NEGATIVE) Ur Buprenorphine Scrn Positive H (NEGATIVE) Ur Oxycodone Screen Negative (NEGATIVE) Urine Methadone Screen Negative (NEGATIVE) Ur Barbiturates Screen Negative (NEGATIVE) Ur Tricyclics Screen Negative (NEGATIVE) Ur Amphetamine Screen Negative (NEGATIVE) U Methamphetamines Scrn Negative (NEGATIVE) Urine MDMA Screen Negative (NEGATIVE) U Benzodiazepines Scrn Positive H (NEGATIVE) U Cocaine Metab Screen Negative (NEGATIVE) U Marijuana (THC) Screen Negative (NEGATIVE) 12/26/17 12/26/17 Range/Units 15:13 15:28 WBC (4.0-10.0) x10^3/uL RBC (4.00-5.50) x10^6/uL Hgb (12.0-16.0) g/dL Hct (33.0-47.0) % MCV (78.0-93.0) fL MCH (26.0-32.0) pg MCHC (32.0-36.0) g/dL RDW Coeff of Roderick (10.0-15.0) % Plt Count (130-400) x10^3/uL Add Manual Diff Neutrophils % (Manual) (50-80) % Band Neutrophils % (0-6) % Lymphocytes % (Manual) (25-50) % Monocytes % (Manual) (2-11) % Platelet Estimate PT (9.8-11.8) SEC INR (2.0-3.5) D-Dimer, Quantitative (<=0.58) mg/LFEU POC ABG pH 6.703 L* (7.35-7.45) POC ABG pCO2 25 L (35-45) mmHG POC ABG pO2 500 H (80-105) mmHG POC ABG HCO3 3 L (22-26) mmol/L POC ABG O2 Sat 100 H (95-98) % POC FiO2 0.60 POC Sodium Sodium (138-146) mmol/L POC Potassium Potassium (3.5-4.9) mmol/L POC Chloride Chloride (98-109) mmol/L Carbon Dioxide (24-29) mmol/L POC Total CO2 Anion Gap (10-20) mmol/L POC Anion Gap POC BUN BUN (8-26) mg/dL Creatinine (0.6-1.3) mg/dL POC Creatinine Est Cr Clr Drug Dosing Estimated GFR (MDRD) Glucose (70-105) mg/dL POC Glucose > 500 H* Lactic Acid (0.4-2.0) mmol/L Calcium (8.5-10.1) mg/dL Corrected Calcium (8.5-10.1) mg/dL Phosphorus (2.6-4.7) mg/dL Magnesium (1.8-2.4) mg/dL Total Bilirubin (0.2-1.0) mg/dL AST (15-37) U/L ALT (14-59) U/L Alkaline Phosphatase (46-116) U/L POC Troponin I (0.00-0.08) ng/mL NT-Pro-B Natriuret Pep (<=125) pg/mL Total Protein (6.4-8.2) g/dL Albumin (3.4-5.0) g/dL Globulin g/dL Albumin/Globulin Ratio TSH, Ultra Sensitive (0.358-3.74) uIU/mL POC Result Comm Called critical res Urine Color (YELLOW) Urine Appearance (CLEAR) Urine pH (5.0-8.0) Ur Specific Webb Urine Protein (NEGATIVE) mg/dL Urine Glucose (UA) (NEGATIVE) mg/dL Urine Ketones (NEGATIVE) mg/dL Urine Occult Blood (NEGATIVE) Urine Nitrite (NEGATIVE) Urine Bilirubin (NEGATIVE) Urine Urobilinogen (0.2) EU/dL Ur Leukocyte Esterase (NEGATIVE) Urine Opiates Screen (NEGATIVE) Ur Buprenorphine Scrn (NEGATIVE) Ur Oxycodone Screen (NEGATIVE) Urine Methadone Screen (NEGATIVE) Ur Barbiturates Screen (NEGATIVE) Ur Tricyclics Screen (NEGATIVE) Ur Amphetamine Screen (NEGATIVE) U Methamphetamines Scrn (NEGATIVE) Urine MDMA Screen (NEGATIVE) U Benzodiazepines Scrn (NEGATIVE) U Cocaine Metab Screen (NEGATIVE) U Marijuana (THC) Screen (NEGATIVE) Meds: Medications Generic Name Dose Route Start Last Admin Trade Name Freq PRN Reason Stop Dose Admin Propofol 50 mls @ 7.326 mls/hr 12/26/17 15:00 Diprivan 50 Ml IV .TITRATE VIVIANA Protocol 15 MCG/KG/MIN Sodium Chloride 10 ml 12/26/17 14:42 Saline Flush FLUSH ASDIRECTED PRN Keep Vein Open Discontinued Medications Generic Name Dose Route Start Last Admin Trade Name Elfegoq PRN Reason Stop Dose Admin Insulin Human Regular Confirm 12/26/17 14:33 Humulin R Administered 12/26/17 14:34 Dose 300 unit .ROUTE .STK-MED ONE Midazolam HCl 2 mg 12/26/17 14:47 Versed 1 Mg/Ml IVPUSH 12/26/17 14:48 ONETIME ONE Piperacillin Sod/Tazobactam Sod Confirm 12/26/17 15:15 Zosyn Administered 12/26/17 15:16 Dose 4.5 gm .ROUTE .STK-MED ONE Rocuronium [place] Confirm 12/26/17 14:19 Zemuron Administered 12/26/17 14:20 Dose 50 mg .ROUTE .STK-MED ONE Rocuronium [place] 40 mg 12/26/17 14:47 Zemuron IV 12/26/17 14:48 ONETIME ONE Sodium Bicarbonate 50 meq 12/26/17 15:36 Sodium Bicarbonate 8.4% IVPUSH 12/26/17 15:37 ONETIME ONE Succinylcholine Chloride Confirm 12/26/17 14:19 Quelicin Administered 12/26/17 14:20 Dose 200 mg .ROUTE .STK-MED ONE - Radiology Interpretation Free Text/Narrative:: Post intubation CXR revealed tip of tube at aortic arch. Departure - Departure Time of Disposition: 15:44 Disposition: DC/Tfer to Acute Hospital 02 Condition: Critical Clinical Impression: DKA (diabetic ketoacidoses), Renal failure, Hyperkalemia - Discharge Information Referrals: PCP,Unknown [Primary Care Provider] - Forms: Interfacility Transfer EMTALA, ED Department Discharge Critical Care Note - Critical Care Note Total Time (mins): 90 Comments: Pt. was experiencing agonal breathing on arrival. O2 sat was 92% on non- rebreather at 15L/min. Pt. was placed on high-flow NC as well non-rebreather to achieve optimal oxygenation. RSI was performed as described above. Intubation was achieved on the first attempt. ETCO2 was 30 and bilateral breath sounds were heard over the lung miller and no sounds noted over the epigastrium. Pt. was given versed 2 mg IV at started on a propofol drip at 15mcg/kg/min. IV access was obtained. She was given approx. 3 liters of normal saline in ER. She did become hypotensive despite IV fluids and was started on levophed at 5mcg/ min. She was given regular Insulin 10u IV after obtaining blood glucose (>500mg/ dl onglucometer) and was also given an amp of sodium bicarb after obtaining chemistry and finding potassium was 7. Chest x-ray did not reveal any large infiltrate, but she was started on IV zosyn at 4.5gm IV. - My Orders Last 24 Hours: My Active Orders 12/26/17 14:41 EKG Documentation Completion [RC] STAT Chest 1V Frontal [CR] Stat 12/26/17 14:42 Sodium Chloride 0.9% [Saline Flush] 10 ml FLUSH ASDIRECTED PRN Blood Culture x2 Reflex Set [OM.PC] Stat Peripheral IV Insertion Adult [OM.PC] Routine 12/26/17 14:50 CULTURE BLOOD [BC] Stat CULTURE URINE [RM] Routine UA W/MICROSCOPIC [URIN] Routine 12/26/17 14:55 CULTURE BLOOD [BC] Stat 12/26/17 15:00 Propofol [Diprivan 50 ML] 50 ml IV .TITRATE 12/26/17 15:26 Blood Glucose Check, Bedside [RC] ONETIME - Assessment/Plan Last 24 Hours: My Active Orders 12/26/17 14:41 EKG Documentation Completion [RC] STAT Chest 1V Frontal [CR] Stat 12/26/17 14:42 Sodium Chloride 0.9% [Saline Flush] 10 ml FLUSH ASDIRECTED PRN Blood Culture x2 Reflex Set [OM.PC] Stat Peripheral IV Insertion Adult [OM.PC] Routine 12/26/17 14:50 CULTURE BLOOD [BC] Stat CULTURE URINE [RM] Routine UA W/MICROSCOPIC [URIN] Routine 12/26/17 14:55 CULTURE BLOOD [BC] Stat 12/26/17 15:00 Propofol [Diprivan 50 ML] 50 ml IV .TITRATE 12/26/17 15:26 Blood Glucose Check, Bedside [RC] ONETIME
[2017-12-26] MEDS ORDERED: fentaNYL 100 MCG/2 ML SDV ONE (16:03)
[2017-12-26] MEDS ORDERED: Midazolam 1 MG/ML 2 ML SDV ONE (16:03)
[2017-12-26] MEDS ORDERED: Ketamine 200 MG/20 ML MDV ONE (16:04)
[2017-12-26] MEDS ORDERED: Norepinephrine 4 MG/4 ML SDV ONE (16:16)
== END 2017-12-26 15:45 | disposition short-term general hospital (02) ==
LOC: VM.ED 14:12
DX: E10.10 Type 1 diabetes mellitus with ketoacidosis without coma (principal); E87.5 Hyperkalemia; N19 Unspecified kidney failure; F17.210 Nicotine dependence, cigarettes, uncomplicated; Z88.6 Allergy status to analgesic agent; Z79.899 Other long term (current) drug therapy
CPT/HCPCS: 31500; 36415; 36600; 51702; 71045; 80053; 80305; 81001; 82803; 82962; 83605; 83735; 83880; 84100; 84443; 84484; 85025; 85379; 85610; 87040; 87086; 96361; 96365; 96374; 96375; 99291; 99292; G0480

== ENCOUNTER 2018-01-22 21:18 | Emergency (ER) | payer MEDICAID ==
[2018-01-22 21:47] VITALS: BP 149/98
[2018-01-22] MEDS ORDERED: HYDROmorphone 1 MG/ML Syringe IVPUSH ONE (21:57)
--- NOTE | 2018-01-22 21:57 | EDM.PDOC ---
ED HPI GENERAL MEDICAL PROBLEM - General Stated Complaint: leg pain Time Seen by Provider: 01/22/18 22:29 Source of Information: Reports: Patient History Limitations: Reports: No Limitations - History of Present Illness INITIAL COMMENTS - FREE TEXT/NARRATIVE: Patient comes into the emergency department tonight with a sudden onset of pain on her right lower extremity. Patient was recently hospitalized in [place] for DKA. She developed multiple complications including a DVT. The patient was just discharged this past week with home health. Patient comes in with a severe onset of this right upper thigh pain. Patient states that the thigh has increased in size dramatically over the last hour. She states that the pain is very similar to when she first developed a blood clot in the same region about a month and a half ago. Patient denies any fever. She states that she took an oxycodone that she has a prescription for about an hour prior to arrival. She states that that has not helped at all. Patient is inconsolable and states it is extremely painful and intolerable. Patient is currently being anticoagulated with Coumadin she was take 5 mg today which artichoke and 5 mg tomorrow and she is to drop down to 2.5 mg after that. The pain is more tolerable when she is lying flat. She cannot sit upright for the pain as much worse. Onset: Sudden Quality: Reports: Sharp, Throbbing Severity: Severe Improves with: Reports: Immobilization Worsens with: Reports: Movement Right Leg Pain Score (Numeric/FACES): 10 - Related Data Allergies Allergy/AdvReac Type Severity Reaction Status Date / Time ibuprofen AdvReac Stomach Verified 01/22/18 21:40 Upset Home Meds: Home Meds Insulin Glarg,Human.Rec.Analog [LantUS] 35 unit SUBCUT BEDTIME 02/15/17 [History ] Insulin Lispro [Humalog] 1 unit SQ ASDIRECTED 02/15/17 [History] Sertraline HCl [Zoloft] 200 mg PO DAILY 02/15/17 [History] clonazePAM [Klonopin] 1 mg PO TID PRN 02/15/17 [History] Lurasidone HCl [Latuda] 40 mg DAILY 04/17/17 [History] traZODone HCl [Trazodone HCl] 200 mg DAILY 04/17/17 [History] Cyclobenzaprine HCl 1 tab PO TID 10 Days #30 tablet 07/09/17 [Rx] Diazepam [Valium] 10 mg PO BEDTIME 07/09/17 [History] Mupirocin Calcium [Bactroban] 1 dose TP TID 07/09/17 [History] Olopatadine [Patanol 0.1% Ophth Soln] 1 drop EYEBOTH BID 07/09/17 [History] Pregabalin [Lyrica] 200 mg PO BID 07/09/17 [History] atorvaSTATin [Lipitor] 10 mg PO BEDTIME 07/09/17 [History] hydrOXYzine HCl [Atarax] 25 mg PO BEDTIME 07/09/17 [History] Sulfamethoxazole/Trimethoprim [Bactrim Ds Tablet] 1 each PO BID 12/19/17 [ History] Past Medical History HEENT History: Reports: Impaired Vision Gastrointestinal History: Reports: Irritable Bowel Syndrome Other Gastrointestinal History: acid reflux Genitourinary History: Reports: Urinary Incontinence Other Genitourinary History: Current UTI Psychiatric History: Reports: Anxiety Endocrine/Metabolic History: Reports: Diabetes, Type I Other Endocrine/Metabolic History: 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 - Past Surgical History GI Surgical History: Reports: Other (See Below) Other GI Surgeries/Procedures: Esophagus/ stomach repair Musculoskeletal Surgical History: Reports: Hip Replacement ED ROS GENERAL - Review of Systems Review Of Systems: See Below Constitutional: Reports: No Symptoms HEENT: Reports: No Symptoms Respiratory: Reports: No Symptoms Cardiovascular: Reports: No Symptoms Endocrine: Reports: High Glucose GI/Abdominal: Reports: No Symptoms Musculoskeletal: Reports: No Symptoms Skin: Reports: No Symptoms Neurological: Reports: No Symptoms Psychiatric: Reports: Anxiety Hematologic/Lymphatic: Reports: Other (on coumadin for DVT) Immunologic: Reports: No Symptoms ED EXAM, GENERAL - Physical Exam Exam: See Below Exam Limited By: No Limitations General Appearance: Alert, WD/WN, No Apparent Distress Respiratory/Chest: No Respiratory Distress, Lungs Clear, No Accessory Muscle Use Cardiovascular: Normal Peripheral Pulses, Regular Rate, Rhythm Peripheral Pulses: 1+: Dorsalis Pedis (L) (doppler), Dorsalis Pedis (R) ( doppler ), 2+: Femoral (L), Femoral (R) Extremities: Pedal Edema, Leg Pain (right thigh pain. thigh bilateral measuring 60', calf 40 1/2 R, 41 L, Pedal pulses weak doppler used. pitting edema bilateral feet and ankle, ), Limited Range of Motion Neurological: Alert, Oriented, CN II-XII Intact Skin Exam: Ecchymosis (right thigh ) Course - Vital Signs Last Recorded V/S: Last Vital Signs Temp 37.3 C 01/22/18 21:18 Pulse 72 01/22/18 21:18 Resp 20 01/22/18 21:18 BP 149/98 H 01/22/18 21:18 Pulse Ox 97 01/22/18 21:18 - Orders/Labs/Meds Meds: Medications Discontinued Medications Generic Name Dose Route Start Last Admin Trade Name Freq PRN Reason Stop Dose Admin Hydromorphone HCl 0.5 mg 01/22/18 21:57 Dilaudid IVPUSH 01/22/18 21:58 ONETIME ONE Hydromorphone HCl 0.5 mg 01/22/18 22:09 01/22/18 22:15 Dilaudid IM 01/22/18 22:10 0.5 mg ONETIME ONE Administration Departure - Departure Time of Disposition: 22:30 Disposition: Home, Self-Care 01 Condition: Good Clinical Impression: Right thigh pain - Discharge Information Referrals: Mercedes Jennings DO [Primary Care Provider] - Forms: ED Department Discharge - Assessment/Plan Assessment:: 1. Right thigh pain Plan: 1. Pt was just discharged from [facility] after an extended hospital stay for DKA and DVT. [place] consult with Dr. Hopkins stated with recent hospitalization and no ability to rule out DVT it is advised to transfer pt to [place] with ultrasound abilities. 2. [facility] consultation completed with Dr. Johns in the emergency department who has agreed to accept the patient. However he feels it is quite possible that no further treatment will be rendered if a DVT does exist. It was discussed with him that we do not have ultrasound here at the hospital and in order to fully rule a new or worsening DVT we should transfer the patient to services that are capable of further testing or have surgical intervention if necessary. Patient is currently anticoagulated and with INRs completed this week. However she has developed severe onset of pain in the right thigh and she describes the pain as similair to her DVT from before. Pt will be transfered to the ER for ultrasound. 3. Family is aware that pt may not be admitted and will be present to help transport pt if clinical findings are negative.
[2018-01-22] MEDS ORDERED: HYDROmorphone 1 MG/ML Syringe IM ONE (22:09)
== END 2018-01-22 22:29 | disposition home or self-care (01) ==
LOC: VM.ED 21:18
DX: S70.11XA Contusion of right thigh, initial encounter (principal); E10.9 Type 1 diabetes mellitus without complications; K21.9 Gastro-esophageal reflux disease without esophagitis; F41.9 Anxiety disorder, unspecified; N39.0 Urinary tract infection, site not specified; Z79.899 Other long term (current) drug therapy; X58.XXXA Exposure to other specified factors, initial encounter; Z79.01 Long term (current) use of anticoagulants
CPT/HCPCS: 96372; 99283; J1170

== ENCOUNTER 2018-01-29 22:41 | Emergency (ER) | payer MEDICAID, OTHER ==
[2018-01-29 23:33] VITALS: BP 137/87
--- NOTE | 2018-01-29 23:56 | EDM.PDOC ---
ED HPI GENERAL MEDICAL PROBLEM - General Chief Complaint: General Stated Complaint: high blood sugars Time Seen by Provider: 01/29/18 23:30 Source of Information: Reports: Patient History Limitations: Reports: No Limitations - History of Present Illness INITIAL COMMENTS - FREE TEXT/NARRATIVE: Patient comes in with a three-day history of abnormal blood sugars. Patient was hospitalized approximately a month ago with severe DKA requiring intubation and hemodialysis in [place]. Patient had a long hospitalization with multiple complications. Approximately 2 weeks ago she was discharged to home health and had been doing fairly well however last week or approximately 7 days ago she ended up in the emergency department with a new blood clot in her lower extremity. She was already on Coumadin for a blood clot that was diagnosed while she was hospitalized in [place]- Coumadin doses where adjusted. Patient comes in today stating that her blood sugars have ranged anywhere from greater than 500 to be in less than 50. She contacted the clinic yesterday-they've been adjusting her insulin to help better regulate her blood sugars. However tonight her blood sugar was greater than 500 she gave herself 5 units of a short acting insulin at 2300 and came into the emergency department. She also states that she is having some blurred vision which she notices the onset of her recent higher blood sugars She denies any nausea vomiting diarrhea. She also denies any frequency in urination or fruity breath. Onset: Gradual Improves with: Reports: None Worsens with: Reports: None Right Leg Pain Score (Numeric/FACES): 3 - Related Data Allergies Allergy/AdvReac Type Severity Reaction Status Date / Time ibuprofen AdvReac Stomach Verified 01/29/18 23:23 Upset Home Meds: Home Meds Insulin Glarg,Human.Rec.Analog [LantUS] 30 unit SUBCUT BEDTIME 02/15/17 [History ] Insulin Lispro [Humalog] 5 unit SQ TID 02/15/17 [History] Sertraline HCl [Zoloft] 200 mg PO DAILY 02/15/17 [History] Lurasidone HCl [Latuda] 40 mg DAILY 04/17/17 [History] atorvaSTATin [Lipitor] 10 mg PO BEDTIME 07/09/17 [History] hydrOXYzine HCl [Atarax] 50 mg PO BEDTIME 07/09/17 [History] Cyclobenzaprine HCl 1 tab PO TID PRN 01/29/18 [History] Gabapentin [Neurontin] 300 mg PO BID 01/29/18 [History] Gabapentin [Neurontin] 600 mg PO DAILY 01/29/18 [History] Warfarin [Coumadin] 1.5 mg PO DAILY 01/29/18 [History] Past Medical History HEENT History: Reports: Impaired Vision Cardiovascular History: Reports: Blood Clots/VTE/DVT Gastrointestinal History: Reports: Irritable Bowel Syndrome Other Gastrointestinal History: acid reflux Genitourinary History: Reports: Urinary Incontinence Other Genitourinary History: Current UTI Psychiatric History: Reports: Anxiety Endocrine/Metabolic History: Reports: Diabetes, Type I Other Endocrine/Metabolic History: 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 - Past Surgical History GI Surgical History: Reports: Other (See Below) Other GI Surgeries/Procedures: Esophagus/ stomach repair Musculoskeletal Surgical History: Reports: Hip Replacement Social & Family History - Tobacco Use Smoking Status *Q: Current Every Day Smoker Years of Tobacco use: 15 Packs/Tins Daily: 1 ED ROS GENERAL - Review of Systems Review Of Systems: See Below Constitutional: Reports: Malaise, Weakness HEENT: Reports: Vision Change Respiratory: Reports: No Symptoms Cardiovascular: Reports: No Symptoms Endocrine: Reports: High Glucose, Low Glucose. Denies: Polydypsia, Polyuria GI/Abdominal: Reports: No Symptoms : Reports: No Symptoms Musculoskeletal: Reports: No Symptoms Skin: Reports: No Symptoms Neurological: Reports: No Symptoms Psychiatric: Reports: No Symptoms Hematologic/Lymphatic: Reports: No Symptoms Immunologic: Reports: No Symptoms ED EXAM, GENERAL - Physical Exam Exam: See Below Exam Limited By: No Limitations General Appearance: Alert, WD/WN, No Apparent Distress, Anxious Head: Atraumatic, Normocephalic Neck: Normal Inspection, Supple, Non-Tender, Full Range of Motion Respiratory/Chest: No Respiratory Distress, Lungs Clear, Normal Breath Sounds, No Accessory Muscle Use, Chest Non-Tender Cardiovascular: Normal Peripheral Pulses, Regular Rate, Rhythm, No Edema, No JVD Peripheral Pulses: 1+: Dorsalis Pedis (L), Dorsalis Pedis (R) GI/Abdominal: Normal Bowel Sounds, Soft, Non-Tender, No Distention Extremities: Leg Pain (right leg pain. recent DVT diagnosis. Ecchymosis noted), Limited Range of Motion Neurological: Alert, Oriented Psychiatric: Anxious, Depressed Mood Skin Exam: Warm, Ecchymosis (generalized. ) Course - Vital Signs Last Recorded V/S: Last Vital Signs Temp 36.6 C 01/29/18 23:28 Pulse 94 01/29/18 23:28 Resp 16 01/29/18 23:28 BP 137/87 01/29/18 23:28 Pulse Ox 97 01/29/18 23:28 - Orders/Labs/Meds Orders: Active Orders 24 hr Category Date Time Status AMYLASE [CHEM] Stat Lab 01/29/18 23:38 Ordered CBC WITH AUTO DIFF [HEME] Stat Lab 01/29/18 23:38 Ordered COMPREHENSIVE METABOLIC PN,CMP [CHEM] Stat Lab 01/29/18 23:38 Ordered CREATINE KINASE,CK [CHEM] Stat Lab 01/29/18 23:38 Ordered LACTIC ACID [CHEM] Stat Lab 01/29/18 23:39 Ordered LIPASE [CHEM] Stat Lab 01/29/18 23:38 Ordered TROPONIN I [CHEM] Stat Lab 01/29/18 23:38 Ordered UA W/MICROSCOPIC [URIN] Stat Lab 01/29/18 23:39 Ordered Departure - Departure Time of Disposition: 00:40 Disposition: Home, Self-Care 01 Condition: Good Clinical Impression: Hyperglycemia without ketosis - Discharge Information Referrals: PCP,Unobtain [Primary Care Provider] - Additional Instructions: 1. Continue to monitor your blood sugars 2. Follow up with PCP on Wednesday for close monitoring 3. Increase water intake 4. Decrease any food products you see with large amounts or carbs/sugars 5. Return if symptoms progress or worsen - My Orders Last 24 Hours: My Active Orders 01/29/18 23:38 AMYLASE [CHEM] Stat CBC WITH AUTO DIFF [HEME] Stat COMPREHENSIVE METABOLIC PN,CMP [CHEM] Stat CREATINE KINASE,CK [CHEM] Stat LIPASE [CHEM] Stat TROPONIN I [CHEM] Stat 01/29/18 23:39 LACTIC ACID [CHEM] Stat UA W/MICROSCOPIC [URIN] Stat - Assessment/Plan Last 24 Hours: My Active Orders 01/29/18 23:38 AMYLASE [CHEM] Stat CBC WITH AUTO DIFF [HEME] Stat COMPREHENSIVE METABOLIC PN,CMP [CHEM] Stat CREATINE KINASE,CK [CHEM] Stat LIPASE [CHEM] Stat TROPONIN I [CHEM] Stat 01/29/18 23:39 LACTIC ACID [CHEM] Stat UA W/MICROSCOPIC [URIN] Stat Assessment:: 1. Hyperglycemia on home meter Plan: 1. Labs completed in ER. Results discussed with the pt. 2. Patient's labs came back relatively towards her baseline. Patient is very satisfied with her lab results. She would like to go home tonight. Did discuss that the elevated blood sugar should be continued to monitor closely. Patient will continue to check her blood sugars as prescribed and work with her home health nurse again tomorrow with for close regulation. Is also advised that she follows with her PCP on Wednesday for better control and regulation regarding her blood sugars.
[2018-01-30 00:22] LABS: CHLORIDE,CL 102 mmol/L (98-107); SODIUM,NA 139 mmol/L (136-145)
== END 2018-01-30 00:43 | disposition home or self-care (01) ==
LOC: VM.ED 22:41
DX: E10.65 Type 1 diabetes mellitus with hyperglycemia (principal); F41.9 Anxiety disorder, unspecified; F17.210 Nicotine dependence, cigarettes, uncomplicated; Z79.01 Long term (current) use of anticoagulants; Z79.899 Other long term (current) drug therapy
CPT/HCPCS: 36415; 80053; 81001; 82150; 82550; 83605; 83690; 84484; 85025; 99285

== ENCOUNTER 2018-02-12 09:58 | Emergency (ER) | payer MEDICAID ==
[2018-02-12 10:27] VITALS: BP 127/79
[2018-02-12] MEDS ORDERED: Sodium Chloride 0.9% 10 ML Syringe FLUSH PRN (11:09)
[2018-02-12] MEDS ORDERED: Gabapentin 300 MG Cap PO ONE (11:09)
[2018-02-12] MEDS ORDERED: Ondansetron 4 MG/2 ML SDV IVPUSH ONE (11:09)
[2018-02-12] MEDS ORDERED: Sodium Chloride 0.9% 1,000 ML IV SCH (11:15)
[2018-02-12 12:07] LABS: CHLORIDE,CL 98 mmol/L (98-107); SODIUM,NA 132 mmol/L (136-145)
[2018-02-12] MEDS ORDERED: Magnesium Chloride 64 MG Tab.ER PO ONE (12:20)
--- NOTE | 2018-02-12 12:33 | EDM.PDOC ---
ED HPI GENERAL MEDICAL PROBLEM - General Chief Complaint: Gastrointestinal Problem Stated Complaint: ER VISIT Time Seen by Provider: 02/12/18 11:07 Source of Information: Reports: Patient, EMS History Limitations: Reports: No Limitations - History of Present Illness INITIAL COMMENTS - FREE TEXT/NARRATIVE: Patient brought in via ems with complaints of nausea. She has run out of her gabapentin prescription, and was recently seen and intubated for DKA. She is concerned that she is having similar symptoms. She did not take insulin this morning due to not having eaten anything. She denies chest pain, SOB, headache , LOC, abdominal pain, vomiting, blood in urine or stool. She has not had any fever, chills, or night sweats. Is feeling well other than the nausea. She does have an infection on her left forearm where her IV infiltrated while she was in the hospital. Onset: Gradual Duration: Intermittent Associated Symptoms: Reports: No Other Symptoms - Related Data Allergies Allergy/AdvReac Type Severity Reaction Status Date / Time ibuprofen AdvReac Stomach Verified 02/12/18 10:38 Upset Home Meds: Home Meds Insulin Glarg,Human.Rec.Analog [LantUS] 35 unit SUBCUT BEDTIME 02/15/17 [History ] Insulin Lispro [Humalog] 5 unit SQ TID 02/15/17 [History] Sertraline HCl [Zoloft] 200 mg PO DAILY 02/15/17 [History] Lurasidone HCl [Latuda] 80 mg PO DAILY 04/17/17 [History] atorvaSTATin [Lipitor] 10 mg PO BEDTIME 07/09/17 [History] hydrOXYzine HCl [Atarax] 50 mg PO BEDTIME 07/09/17 [History] Cyclobenzaprine HCl 5 mg PO BID 01/29/18 [History] Gabapentin [Neurontin] 300 mg PO DAILY 01/29/18 [History] Gabapentin [Neurontin] 600 mg PO BID 01/29/18 [History] Warfarin [Coumadin] 2.5 mg PO DAILY 01/29/18 [History] Calcium Acetate [PhosLo] 1,334 mg PO TID 02/12/18 [History] Omeprazole 20 mg PO DAILY 02/12/18 [History] Ondansetron [Zofran ODT] 4 mg PO Q4H PRN 02/12/18 [History] amLODIPine Besylate [Norvasc] 10 mg PO DAILY 02/12/18 [History] hydrOXYzine Pamoate [Vistaril] 50 mg PO Q6H PRN 02/12/18 [History] Past Medical History HEENT History: Reports: Impaired Vision Cardiovascular History: Reports: Blood Clots/VTE/DVT Gastrointestinal History: Reports: Irritable Bowel Syndrome Other Gastrointestinal History: acid reflux Genitourinary History: Reports: Urinary Incontinence Other Genitourinary History: Current UTI Psychiatric History: Reports: Anxiety Endocrine/Metabolic History: Reports: Diabetes, Type I Other Endocrine/Metabolic History: 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 - Past Surgical History GI Surgical History: Reports: Other (See Below) Other GI Surgeries/Procedures: Esophagus/ stomach repair Musculoskeletal Surgical History: Reports: Hip Replacement Social & Family History - Tobacco Use Smoking Status *Q: Unknown Ever Smoked ED ROS GENERAL - Review of Systems Review Of Systems: See Below Constitutional: Reports: No Symptoms HEENT: Reports: No Symptoms Respiratory: Reports: No Symptoms Cardiovascular: Reports: No Symptoms Endocrine: Reports: No Symptoms GI/Abdominal: Reports: Nausea : Reports: No Symptoms Musculoskeletal: Reports: No Symptoms Skin: Reports: Wound Neurological: Reports: No Symptoms Psychiatric: Reports: No Symptoms Hematologic/Lymphatic: Reports: No Symptoms Immunologic: Reports: No Symptoms ED EXAM, GI/ABD - Physical Exam Exam: See Below Exam Limited By: No Limitations General Appearance: Alert, WD/WN, No Apparent Distress Eyes: Bilateral: Normal Appearance, EOMI Ears: Normal External Exam, Normal Canal, Hearing Grossly Normal, Normal TMs Nose: Normal Inspection, Normal Mucosa, No Blood Throat/Mouth: Normal Inspection, Normal Lips, Normal Teeth, Normal Gums, Normal Oropharynx, Normal Voice, No Airway Compromise Head: Atraumatic, Normocephalic Neck: Normal Inspection, Supple, Non-Tender, Full Range of Motion Respiratory/Chest: No Respiratory Distress, Lungs Clear, Normal Breath Sounds, No Accessory Muscle Use, Chest Non-Tender Cardiovascular: Normal Peripheral Pulses, Regular Rate, Rhythm, No Edema, No Gallop, No JVD, No Murmur, No Rub GI/Abdominal Exam: Normal Bowel Sounds, Soft, Non-Tender, No Organomegaly, No Distention, No Abnormal Bruit, No Mass, Pelvis Stable Back Exam: Normal Inspection, Full Range of Motion, NT Extremities: Normal Inspection, Normal Range of Motion, Non-Tender, Normal Capillary Refill, No Pedal Edema Neurological: Alert, Oriented, CN II-XII Intact, Normal Cognition, Normal Gait, Normal Reflexes, No Motor/Sensory Deficits Psychiatric: Normal Affect, Normal Mood Skin Exam: Wound/Incision (left forearm wound is well demarcated, site of IV extravasation, healing and on antibiotics) Lymphatic: No Adenopathy Course - Vital Signs Last Recorded V/S: Last Vital Signs Temp 37.7 C 02/12/18 10:15 Pulse 103 H 02/12/18 10:15 Resp 14 02/12/18 10:15 BP 127/79 02/12/18 10:15 Pulse Ox 97 02/12/18 10:15 - Orders/Labs/Meds Orders: Active Orders 24 hr Category Date Time Status Accu Check [Blood Glucose Check, Bedside] [] ONETIME Care 02/12/18 11:41 Active Magnesium Chloride [Mag-64] Med 02/12/18 12:20 Once 64 mg PO ONETIME ONE Sodium Chloride 0.9% [Normal Saline] 1,000 ml Med 02/12/18 11:15 Active IV ASDIRECTED Sodium Chloride 0.9% [Saline Flush] Med 02/12/18 11:09 Active 10 ml FLUSH ASDIRECTED PRN Saline Lock Insert [OM.PC] Routine Oth 02/12/18 11:09 Ordered Medication Orders Sodium Chloride (Normal Saline) 1,000 mls @ 999 mls/hr IV ASDIRECTED [facility] Last Admin: 02/12/18 11:34 Dose: 999 mls/hr Sodium Chloride (Saline Flush) 10 ml FLUSH ASDIRECTED PRN PRN Reason: Keep Vein Open Labs: Laboratory Tests 02/12/18 02/12/18 02/12/18 Range/Units 10:33 11:30 11:30 WBC 8.4 (4.0-10.0) x10^3/uL RBC 4.19 (4.00-5.50) x10^6/uL Hgb 12.3 D (12.0-16.0) g/dL Hct 35.0 (33.0-47.0) % MCV 83.5 D (78.0-93.0) fL MCH 29.4 (26.0-32.0) pg MCHC 35.1 (32.0-36.0) g/dL RDW Coeff of Roderick 14.5 (10.0-15.0) % Plt Count 241 D (130-400) x10^3/uL Neut % (Auto) 84.2 H (50.0-80.0) % Lymph % (Auto) 9.3 L (25.0-50.0) % [place] % (Auto) 5.9 (2.0-11.0) % Eos % (Auto) 0.1 (0.0-4.0) % Baso % (Auto) 0.5 (0.2-1.2) % Sodium 132 L (136-145) mmol/L Potassium 3.9 (3.5-5.1) mmol/L Chloride 98 (98-107) mmol/L Carbon Dioxide 26 (21-32) mmol/L Anion Gap 11.9 (10-20) mmol/L BUN 7 (7-18) mg/dL Creatinine 0.7 (0.55-1.02) mg/dL Est Cr Clr Drug Dosing TNP Estimated GFR (MDRD) > 60 Glucose 209 H (74-106) mg/dL POC Glucose 252 H (74-106) mg/dL Lactic Acid (0.4-2.0) mmol/L Calcium 8.8 (8.5-10.1) mg/dL Corrected Calcium 9.36 (8.5-10.1) mg/dL Magnesium 1.4 L (1.8-2.4) mg/dL Total Bilirubin 0.4 (0.2-1.0) mg/dL AST 18 (15-37) U/L ALT 19 (14-59) U/L Alkaline Phosphatase 116 (46-116) U/L Total Protein 7.1 (6.4-8.2) g/dL Albumin 3.3 L (3.4-5.0) g/dL Globulin 3.8 Albumin/Globulin Ratio 0.87 TSH, Ultra Sensitive 0.561 (0.358-3.74) uIU/mL 02/12/18 Range/Units 11:30 WBC (4.0-10.0) x10^3/uL RBC (4.00-5.50) x10^6/uL Hgb (12.0-16.0) g/dL Hct (33.0-47.0) % MCV (78.0-93.0) fL MCH (26.0-32.0) pg MCHC (32.0-36.0) g/dL RDW Coeff of Roderick (10.0-15.0) % Plt Count (130-400) x10^3/uL Neut % (Auto) (50.0-80.0) % Lymph % (Auto) (25.0-50.0) % [place] % (Auto) (2.0-11.0) % Eos % (Auto) (0.0-4.0) % Baso % (Auto) (0.2-1.2) % Sodium (136-145) mmol/L Potassium (3.5-5.1) mmol/L Chloride (98-107) mmol/L Carbon Dioxide (21-32) mmol/L Anion Gap (10-20) mmol/L BUN (7-18) mg/dL Creatinine (0.55-1.02) mg/dL Est Cr Clr Drug Dosing Estimated GFR (MDRD) Glucose (74-106) mg/dL POC Glucose (74-106) mg/dL Lactic Acid 0.6 (0.4-2.0) mmol/L Calcium (8.5-10.1) mg/dL Corrected Calcium (8.5-10.1) mg/dL Magnesium (1.8-2.4) mg/dL Total Bilirubin (0.2-1.0) mg/dL AST (15-37) U/L ALT (14-59) U/L Alkaline Phosphatase (46-116) U/L Total Protein (6.4-8.2) g/dL Albumin (3.4-5.0) g/dL Globulin Albumin/Globulin Ratio TSH, Ultra Sensitive (0.358-3.74) uIU/mL Meds: Medications Generic Name Dose Route Start Last Admin Trade Name Freq PRN Reason Stop Dose Admin Sodium Chloride 1,000 mls @ 999 mls/hr 02/12/18 11:15 02/12/18 11:34 Normal Saline IV 999 mls/hr ASDIRECTED VIVIANA Administration Sodium Chloride 10 ml 02/12/18 11:09 Saline Flush FLUSH ASDIRECTED PRN Keep Vein Open Discontinued Medications Generic Name Dose Route Start Last Admin Trade Name Freq PRN Reason Stop Dose Admin Gabapentin 600 mg 02/12/18 11:02/12/18 11:43 Neurontin PO 02/12/18 11:10 600 mg ONETIME ONE Administration Ondansetron HCl 4 mg 02/12/18 11:02/12/18 11:35 Zofran IVPUSH 02/12/18 11:10 4 mg ONETIME ONE Administration Departure - Departure Time of Disposition: 12:21 Disposition: Home, Self-Care 01 Condition: Good Clinical Impression: Nausea alone - Discharge Information Instructions: Nausea, Adult Referrals: Avila Aaron MD [Primary Care Provider] - Additional Instructions: Follow up as needed with your primary care doctor Your glucose was high today, make sure to take your insulin when you go home Your magnesium today was low. I did give you oral magnesium while you were here today. This should be rechecked with your primary provider Stay well hydrated Please call with any questions or concerns - Problem List & Annotations (1) Hyperglycemia without ketosis SNOMED Code(s): 92936385 Code(s): R73.9 - HYPERGLYCEMIA, UNSPECIFIED Status: Acute Priority: Medium Current Visit: No (2) Nausea alone SNOMED Code(s): 663749798 Code(s): R11.0 - NAUSEA Status: Acute Priority: Low Current Visit: Yes - Problem List Review Problem List Initiated/Reviewed/Updated: Yes - My Orders Last 24 Hours: My Active Orders 02/12/18 11:09 Sodium Chloride 0.9% [Saline Flush] 10 ml FLUSH ASDIRECTED PRN Saline Lock Insert [OM.PC] Routine 02/12/18 11:15 Sodium Chloride 0.9% [Normal Saline] 1,000 ml IV ASDIRECTED 02/12/18 11:41 Accu Check [Blood Glucose Check, Bedside] [RC] ONETIME 02/12/18 12:20 Magnesium Chloride [Mag-64] 64 mg PO ONETIME ONE - Assessment/Plan Last 24 Hours: My Active Orders 02/12/18 11:09 Sodium Chloride 0.9% [Saline Flush] 10 ml FLUSH ASDIRECTED PRN Saline Lock Insert [OM.PC] Routine 02/12/18 11:15 Sodium Chloride 0.9% [Normal Saline] 1,000 ml IV ASDIRECTED 02/12/18 11:41 Accu Check [Blood Glucose Check, Bedside] [RC] ONETIME 02/12/18 12:20 Magnesium Chloride [Mag-64] 64 mg PO ONETIME ONE Assessment:: nausea hyperglycemia Plan: Follow up as needed with your primary care doctor Your glucose was high today, make sure to take your insulin when you go home Your magnesium today was low. I did give you oral magnesium while you were here today. This should be rechecked with your primary provider Stay well hydrated Please call with any questions or concerns
== END 2018-02-12 12:30 | disposition home or self-care (01) ==
LOC: VM.ED 09:58
DX: R11.0 Nausea (principal); Z88.6 Allergy status to analgesic agent; Z79.4 Long term (current) use of insulin; Z79.899 Other long term (current) drug therapy
CPT/HCPCS: 36415; 80053; 82962; 83605; 83735; 84443; 85025; 96361; 96374; 99284; A9270; J2405; J7030

== ENCOUNTER 2018-02-13 14:39 | Inpatient (IN) | payer MEDICAID ==
[2018-02-13] MEDS ORDERED: Sodium Chloride 0.9% 10 ML Syringe FLUSH PRN ×2 (15:11→18:13)
[2018-02-13] MEDS ORDERED: Ertapenem 1 GM Vial IM ONE (15:14)
[2018-02-13] MEDS ORDERED: Ertapenem 1 GM Vial IVPUSH ONE (15:53)
[2018-02-13 16:07] LABS: CHLORIDE,CL 97 mmol/L (98-107); SODIUM,NA 132 mmol/L (136-145)
[2018-02-13] MEDS ORDERED: Promethazine 12.5 MG in Sodium Chloride 0.9% 100 ML IV ONE (16:13)
[2018-02-13] MEDS: Lactated Ringers 1,000 ML IV SCH (16:14)
[2018-02-13] MEDS ORDERED: Aluminum Hydroxide/Magnesium Hydroxide/Simethicone Susp 30 ML Cup PO PRN ×2 (19:00→19:05)
[2018-02-13] MEDS ORDERED: Ondansetron 4 MG Tab.DIS PO PRN (19:05)
[2018-02-13] MEDS ORDERED: oxyCODONE 5 MG Tab PO PRN (19:05)
[2018-02-13] MEDS ORDERED: HYDROXYZINE PAMOATE 50 MG PO PRN (19:05)
[2018-02-13] MEDS ORDERED: WARFARIN 2.5 MG PO SCH (19:15)
[2018-02-13] MEDS: Insulin Aspart 100 Units/ML 3 ML Pen SUBCUT SCH ×2 (19:18→20:58)
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
[2018-02-13] MEDS ORDERED: atorvaSTATin 10 MG Tab PO SCH (20:00)
[2018-02-13] MEDS ORDERED: Warfarin 2.5 MG Tab PO SCH (20:00)
[2018-02-13] MEDS ORDERED: INSULIN LISPRO 5 UNIT SQ SCH (20:00)
[2018-02-13] MEDS ORDERED: fentaNYL 25 MCG/HR Transdermal Patch TRDERM SCH (20:00)
[2018-02-13] MEDS ORDERED: Insulin Detemir 100 Units/ML 3 ML Pen SUBCUT ONE (20:00)
[2018-02-13] MEDS ORDERED: Insulin Detemir 100 Units/ML 3 ML Pen SUBCUT SCH (20:00)
[2018-02-13] MEDS: Cyclobenzaprine 10 MG Tab PO SCH (21:38)
[2018-02-13] MEDS: Warfarin 2.5 MG Tab PO SCH (21:46)
[2018-02-13] MEDS: Promethazine 25 MG Tab PO PRN (21:46)
[2018-02-13] MEDS: Gabapentin 300 MG Cap PO SCH (21:47)
[2018-02-13] MEDS: Acetaminophen 325 MG Tab PO PRN (21:47)
[2018-02-13] MEDS: hydrOXYzine HCl 25 MG Tab PO PRN (21:49)
[2018-02-13] MEDS: atorvaSTATin 10 MG Tab PO SCH (21:50)
[2018-02-14] MEDS: Lactated Ringers 1,000 ML IV SCH (05:41)
[2018-02-14] MEDS: hydrOXYzine HCl 25 MG Tab PO PRN ×3 (05:44→18:37)
--- NOTE | 2018-02-14 06:45 | EDM.PDOC ---
ED HPI GENERAL MEDICAL PROBLEM - General Chief Complaint: Fever Stated Complaint: LEFT ARM Time Seen by Provider: 02/13/18 14:39 Source of Information: Reports: Patient History Limitations: Reports: No Limitations - History of Present Illness INITIAL COMMENTS - FREE TEXT/NARRATIVE: Pt. presents to ER with fever, chills, sweats, and increased pain and swelling to her L forearm. She has a cellulitis to her L forearm secondary to an IV extravasation while she was hospitalized in December and January for DKA, MODS, and possible opiate OD. She states that she also hit her arm on a refrigerator recently which caused increased erythema and opened the lesion on her forearm. She was seen in ER yesterday with nausea and increased blood sugar. She states that the symptoms have worsened, and she states that she is now experiencing the other problems of fever and chills now. 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: Reports: Acetaminophen Left Arm Pain Score (Numeric/FACES): 2 - Related Data Allergies Allergy/AdvReac Type Severity Reaction Status Date / Time ibuprofen AdvReac Stomach Verified 02/12/18 10:38 Upset Home Meds: Home Meds Insulin Glarg,Human.Rec.Analog [LantUS] 35 unit SUBCUT BEDTIME 02/15/17 [History ] Insulin Lispro [Humalog] 5 unit SQ TID 02/15/17 [History] Sertraline HCl [Zoloft] 200 mg PO DAILY 02/15/17 [History] Lurasidone HCl [Latuda] 80 mg PO DAILY 04/17/17 [History] atorvaSTATin [Lipitor] 10 mg PO BEDTIME 07/09/17 [History] Cyclobenzaprine HCl 5 mg PO BID 01/29/18 [History] Gabapentin [Neurontin] 300 mg PO DAILY 01/29/18 [History] Gabapentin [Neurontin] 600 mg PO BID 01/29/18 [History] Warfarin [Coumadin] 2.5 mg PO DAILY 01/29/18 [History] Calcium Acetate [PhosLo] 1,334 mg PO TID 02/12/18 [History] Omeprazole 20 mg PO DAILY 02/12/18 [History] Ondansetron [Zofran ODT] 4 mg PO Q4H PRN 02/12/18 [History] amLODIPine Besylate [Norvasc] 10 mg PO DAILY 02/12/18 [History] hydrOXYzine Pamoate [Vistaril] 50 mg PO Q6H PRN 02/12/18 [History] Acetaminophen 1,000 mg PO Q6H PRN 02/13/18 [History] Alum Hydrox/Mag Hydrox/Simeth [Maalox Advanced] 30 ml PO Q6H PRN 02/13/18 [ History] Cephalexin [Keflex] 500 mg PO TID 02/13/18 [History] Dextrose [Glucose] 4 gm PO PRN 02/13/18 [History] Fluconazole [Diflucan] 150 mg PO DAILY 02/13/18 [History] fentaNYL [Fentanyl] 25 mcg TD Q72H 02/13/18 [History] oxyCODONE 5 mg PO Q4H PRN 02/13/18 [History] Past Medical History HEENT History: Reports: Impaired Vision Cardiovascular History: Reports: Blood Clots/VTE/DVT, Hypertension Respiratory History: Reports: Other (See Below) Other Respiratory History: hx of acute respiratory failure Gastrointestinal History: Reports: Irritable Bowel Syndrome, PUD Other Gastrointestinal History: acid reflux Genitourinary History: Reports: Urinary Incontinence, Other (See Below) Other Genitourinary History: hx of UTI, hx of acute kidney injury Musculoskeletal History: Reports: Other (See Below) Other Musculoskeletal History: right foot drop Neurological History: Reports: Neuropathy, Diabetic Psychiatric History: Reports: Anxiety, Bipolar, PTSD, Other (See Below) Other Psychiatric History: chronic narcotic use Endocrine/Metabolic History: Reports: Diabetes, Type II, Other (See Below) Other Endocrine/Metabolic History: 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, hx of ketoacidosis Hematologic History: Reports: Other (See Below) - Past Surgical History GI Surgical History: Reports: Cholecystectomy, Other (See Below) Other GI Surgeries/Procedures: Esophagus/ stomach repair Musculoskeletal Surgical History: Reports: Hip Replacement, Other (See Below) Other Musculoskeletal Surgeries/Procedures:: hx of carpal tunnel repair Social & Family History - Family History Family Medical History: Noncontributory - Tobacco Use Smoking Status *Q: Current Every Day Smoker Years of Tobacco use: 14 Packs/Tins Daily: 1 Tobacco Use Comment: Patient states she is a pack a day smoker and knows she needs to quit. Is requesting a nicotine patch. Second Hand Smoke Exposure: No - Caffeine Use Caffeine Use: Reports: Coffee - Recreational Drug Use Recreational Drug Use: No ED ROS GENERAL - Review of Systems Review Of Systems: See Below Constitutional: Reports: Fever, Chills, Malaise, Weakness HEENT: Reports: No Symptoms Respiratory: Reports: No Symptoms Cardiovascular: Reports: No Symptoms Endocrine: Reports: No Symptoms GI/Abdominal: Reports: No Symptoms : Reports: No Symptoms Musculoskeletal: Reports: Arm Pain Skin: Reports: Erythema, Other (L forearm) Neurological: Reports: No Symptoms Psychiatric: Reports: No Symptoms Hematologic/Lymphatic: Reports: No Symptoms Immunologic: Reports: No Symptoms ED EXAM, GENERAL - Physical Exam Exam: See Below Exam Limited By: No Limitations General Appearance: Alert, WD/WN, No Apparent Distress Eye Exam: Bilateral Eye: EOMI, Normal Fundi, Normal Inspection, PERRL Ears: Normal External Exam, Normal Canal, Hearing Grossly Normal, Normal TMs Ear Exam: Bilateral Ear: Auricle Normal, Canal Normal, TM normal Nose: Normal Inspection, Normal Mucosa, No Blood Throat/Mouth: Normal Inspection, Normal Lips, Normal Teeth, Normal Gums, Normal Oropharynx, Normal Voice, No Airway Compromise Head: Atraumatic, Normocephalic Neck: Normal Inspection, Supple, Non-Tender, Full Range of Motion Respiratory/Chest: No Respiratory Distress, Lungs Clear, Normal Breath Sounds, No Accessory Muscle Use, Chest Non-Tender Cardiovascular: Normal Peripheral Pulses, Regular Rate, Rhythm, No Edema, No Gallop, No JVD, No Murmur, No Rub Peripheral Pulses: 4+: Radial (L), Radial (R) GI/Abdominal: Normal Bowel Sounds, Soft, Non-Tender, No Organomegaly, No Distention, No Abnormal Bruit, No Mass, Pelvis Stable (Female) Exam: Deferred Rectal (Female) Exam: Deferred Back Exam: Normal Inspection, Full Range of Motion Extremities: Normal Inspection, No Pedal Edema, Other (Right lower leg is moderately swollen with hyperpigmentation, left leg without any edema, color is normal) Psychiatric: Normal Affect, Normal Mood Skin Exam: Warm, Dry, Intact, Normal Color, No Rash Lymphatic: No Adenopathy Course - Vital Signs Last Recorded V/S: Last Vital Signs Temp 36.9 C 02/14/18 05:33 Pulse 87 06/11/18 05:33 Resp 14 02/14/18 05:33 BP 122/68 02/14/18 05:33 Pulse Ox 98 02/14/18 05:33 - Orders/Labs/Meds Orders: Active Orders 24 hr Category Date Time Status CULTURE BLOOD [BC] Stat Lab 02/13/18 15:24 Received CULTURE BLOOD [BC] Stat Lab 02/13/18 15:30 Received CULTURE WOUND [RM] Routine Lab 02/13/18 15:45 Received Lactated Ringers [Ringers, Lactated] 1,000 ml Med 02/13/18 15:15 Active IV ASDIRECTED Blood Culture x2 Reflex Set [OM.PC] Stat Oth 02/13/18 15:13 Ordered Peripheral IV Insertion Adult [OM.PC] Routine Oth 02/13/18 15:12 Ordered Medication Orders Acetaminophen (Tylenol) 650 mg PO Q4H PRN PRN Reason: Pain (Mild 1-3)/fever Last Admin: 02/13/18 21:47 Dose: 650 mg Al Hydroxide/Mg Hydroxide (Mag-Al Plus) 30 ml PO QID PRN PRN Reason: Dyspepsia Amlodipine Besylate (Norvasc) 10 mg PO DAILY [facility] Atorvastatin Calcium (Lipitor) 10 mg PO BEDTIME [facility] Last Admin: 02/13/18 21:50 Dose: 10 mg Cyclobenzaprine HCl (Flexeril) 5 mg PO BID [facility] Last Admin: 02/13/18 21:38 Dose: 5 mg Fentanyl (Duragesic) 25 mcg TRDERM Q72H [facility] Last Admin: 02/13/18 21:03 Dose: Fentanyl (Duragesic) 25 mcg TRDERM Q72H [facility] Gabapentin (Neurontin) 300 mg PO BEDTIME [facility] Last Admin: 02/13/18 21:47 Dose: 300 mg Gabapentin (Neurontin) 600 mg PO BID@1000,1500 [facility] Hydroxyzine HCl (Atarax) 50 mg PO Q6H PRN PRN Reason: Anxiety Last Admin: 02/14/18 05:44 Dose: 50 mg Admin: 02/13/18 21:49 Dose: 50 mg Lactated Ringer's (Ringers, Lactated) 1,000 mls @ 500 mls/hr IV ASDIRECTED [facility] Last Admin: 02/14/18 05:41 Dose: 500 mls/hr Infusion: 02/13/18 18:14 Dose: 500 mls/hr Admin: 02/13/18 16:14 Dose: 500 mls/hr Vancomycin HCl 1,250 mg/ (Sodium Chloride) 250 mls @ 200 mls/hr IV Q12H [facility] Last Admin: 02/14/18 05:40 Dose: 200 mls/hr Insulin Aspart (Novolog) 5 unit SUBCUT TIDMEALS [facility] Last Admin: 02/13/18 20:58 Dose: Not Given Admin: 02/13/18 19:18 Dose: 5 units Insulin Detemir (Levemir) 30 unit SUBCUT BEDTIME [facility] Last Admin: 02/13/18 21:52 Dose: 30 units Magnesium Chloride (Mag-64) 64 mg PO DAILY [facility] Miscellaneous Information (Remove Patch) 1 ea TRDERM Q72H [facility] Nicotine (Habitrol) 7 mg TRDERM DAILY [facility] Omeprazole (Omeprazole) 20 mg PO DAILY@0700 [facility] Ondansetron HCl (Zofran Odt) 4 mg PO Q4H PRN PRN Reason: Nausea Oxycodone HCl (Oxycodone) 5 mg PO Q4H PRN PRN Reason: Pain (moderate 4-6) Promethazine HCl (Phenergan) 25 mg PO Q8H PRN PRN Reason: Nausea/Vomiting Last Admin: 02/13/18 21:46 Dose: 25 mg Sertraline HCl (Zoloft) 200 mg PO DAILY [facility] Sodium Chloride (Saline Flush) 10 ml FLUSH ASDIRECTED PRN PRN Reason: Keep Vein Open Warfarin Sodium (Coumadin) 2.5 mg PO BEDTIME [facility] Last Admin: 02/13/18 21:46 Dose: 2.5 mg Warfarin Sodium (Coumadin) 2.5 mg PO BEDTIME [facility] Labs: Laboratory Tests 02/13/18 02/13/18 02/13/18 Range/Units 15:24 15:24 15:24 WBC 6.5 (4.0-10.0) x10^3/uL RBC 3.99 L (4.00-5.50) x10^6/uL Hgb 11.6 L (12.0-16.0) g/dL Hct 32.7 L (33.0-47.0) % MCV 82.0 (78.0-93.0) fL MCH 29.1 (26.0-32.0) pg MCHC 35.5 (32.0-36.0) g/dL RDW Coeff of Roderick 14.5 (10.0-15.0) % Plt Count 272 (130-400) x10^3/uL Neut % (Auto) 76.0 (50.0-80.0) % Lymph % (Auto) 16.8 L (25.0-50.0) % [place] % (Auto) 6.0 (2.0-11.0) % Eos % (Auto) 0.6 (0.0-4.0) % Baso % (Auto) 0.6 (0.2-1.2) % PT 21.8 H (9.6-11.4) SEC INR 2.1 (2.0-3.5) Sodium 132 L (136-145) mmol/L Potassium 3.7 (3.5-5.1) mmol/L Chloride 97 L (98-107) mmol/L Carbon Dioxide 26 (21-32) mmol/L Anion Gap 12.7 (10-20) mmol/L BUN 7 (7-18) mg/dL Creatinine 0.8 (0.55-1.02) mg/dL Est Cr Clr Drug Dosing 102.58 mL/min Estimated GFR (MDRD) > 60 Glucose 306 H (74-106) mg/dL Lactic Acid (0.4-2.0) mmol/L Calcium 8.9 (8.5-10.1) mg/dL Corrected Calcium 9.46 (8.5-10.1) mg/dL Phosphorus 3.9 (2.6-4.7) mg/dL Magnesium 1.4 L (1.8-2.4) mg/dL Total Bilirubin 0.4 (0.2-1.0) mg/dL AST 14 L (15-37) U/L ALT 17 (14-59) U/L Alkaline Phosphatase 122 H (46-116) U/L C-Reactive Protein 15.5 H (<=0.9) mg/dL Total Protein 7.3 (6.4-8.2) g/dL Albumin 3.3 L (3.4-5.0) g/dL Globulin 4.0 Albumin/Globulin Ratio 0.83 TSH, Ultra Sensitive 0.703 (0.358-3.74) uIU/mL Ethyl Alcohol < 3 (0-3) mg/dL 02/13/18 Range/Units 15:24 WBC (4.0-10.0) x10^3/uL RBC (4.00-5.50) x10^6/uL Hgb (12.0-16.0) g/dL Hct (33.0-47.0) % MCV (78.0-93.0) fL MCH (26.0-32.0) pg MCHC (32.0-36.0) g/dL RDW Coeff of Roderick (10.0-15.0) % Plt Count (130-400) x10^3/uL Neut % (Auto) (50.0-80.0) % Lymph % (Auto) (25.0-50.0) % [place] % (Auto) (2.0-11.0) % Eos % (Auto) (0.0-4.0) % Baso % (Auto) (0.2-1.2) % PT (9.6-11.4) SEC INR (2.0-3.5) Sodium (136-145) mmol/L Potassium (3.5-5.1) mmol/L Chloride (98-107) mmol/L Carbon Dioxide (21-32) mmol/L Anion Gap (10-20) mmol/L BUN (7-18) mg/dL Creatinine (0.55-1.02) mg/dL Est Cr Clr Drug Dosing mL/min Estimated GFR (MDRD) Glucose (74-106) mg/dL Lactic Acid 0.9 (0.4-2.0) mmol/L Calcium (8.5-10.1) mg/dL Corrected Calcium (8.5-10.1) mg/dL Phosphorus (2.6-4.7) mg/dL Magnesium (1.8-2.4) mg/dL Total Bilirubin (0.2-1.0) mg/dL AST (15-37) U/L ALT (14-59) U/L Alkaline Phosphatase (46-116) U/L C-Reactive Protein (<=0.9) mg/dL Total Protein (6.4-8.2) g/dL Albumin (3.4-5.0) g/dL Globulin Albumin/Globulin Ratio TSH, Ultra Sensitive (0.358-3.74) uIU/mL Ethyl Alcohol (0-3) mg/dL Meds: Medications Generic Name Dose Route Start Last Admin Trade Name Freq PRN Reason Stop Dose Admin Acetaminophen 650 mg 02/13/18 18:13 02/13/18 21:47 Tylenol PO 650 mg Q4H PRN Administration Pain (Mild 1-3)/fever Al Hydroxide/Mg Hydroxide 30 ml 02/13/18 19:00 Mag-Al Plus PO QID PRN Dyspepsia Amlodipine Besylate 10 mg 02/14/18 08:00 Norvasc PO DAILY [facility] Atorvastatin Calcium 10 mg 02/13/18 20:00 02/13/18 21:50 Lipitor PO 10 mg BEDTIME [facility] Administration Cyclobenzaprine HCl 5 mg 02/13/18 20:00 02/13/18 21:38 Flexeril PO 5 mg BID [facility] Administration Fentanyl 25 mcg 02/13/18 20:00 02/13/18 21:03 Duragesic TRDERM Not Given Q72H [facility] Fentanyl 25 mcg 02/15/18 08:00 Duragesic TRDERM Q72H [facility] Gabapentin 300 mg 02/13/18 20:00 02/13/18 21:47 Neurontin PO 300 mg BEDTIME [facility] Administration Gabapentin 600 mg 02/14/18 10:00 Neurontin PO BID@1000,1500 [facility] Hydroxyzine HCl 50 mg 02/13/18 19:03 02/14/18 05:44 Atarax PO 50 mg Q6H PRN Administration Anxiety Lactated Ringer's 1,000 mls @ 500 mls/hr 02/13/18 15:15 02/14/18 05:41 Ringers, Lactated IV 500 mls/hr ASDIRECTED [facility] Administration Vancomycin HCl 1,250 mg/ 250 mls @ 200 mls/hr 02/14/18 06:00 02/14/18 05:40 Sodium Chloride IV 200 mls/hr Q12H [facility] Administration Insulin Aspart 5 unit 02/13/18 19:15 02/13/18 20:58 Novolog SUBCUT Not Given TIDMEALS [facility] Insulin Detemir 30 unit 02/13/18 20:00 02/13/18 21:52 Levemir SUBCUT 30 units BEDTIME [facility] Administration Magnesium Chloride 64 mg 02/14/18 08:00 Mag-64 PO DAILY [facility] Miscellaneous Information 1 ea 02/16/18 20:00 Remove Patch TRDERM Q72H [facility] Nicotine 7 mg 02/14/18 08:00 Habitrol TRDERM DAILY [facility] Omeprazole 20 mg 02/14/18 07:00 Omeprazole PO DAILY@0700 [facility] Ondansetron HCl 4 mg 02/13/18 19:05 Zofran Odt PO Q4H PRN Nausea Oxycodone HCl 5 mg 02/13/18 18:13 Oxycodone PO Q4H PRN Pain (moderate 4-6) Promethazine HCl 25 mg 02/13/18 21:10 02/13/18 21:46 Phenergan PO 25 mg Q8H PRN Administration Nausea/Vomiting Sertraline HCl 200 mg 02/14/18 08:00 Zoloft PO DAILY [facility] Sodium Chloride 10 ml 02/13/18 18:13 Saline Flush FLUSH ASDIRECTED PRN Keep Vein Open Warfarin Sodium 2.5 mg 02/13/18 20:00 02/13/18 21:46 Coumadin PO 2.5 mg BEDTIME [facility] Administration Warfarin Sodium 2.5 mg 02/13/18 20:00 Coumadin PO BEDTIME [facility] Discontinued Medications Generic Name Dose Route Start Last Admin Trade Name Freq PRN Reason Stop Dose Admin Al Hydroxide/Mg Hydroxide 30 ml 02/13/18 19:05 Mag-Al Plus PO Q6H PRN Heartburn Atorvastatin Calcium 10 mg 02/13/18 20:00 Lipitor PO BEDTIME [facility] Ertapenem 1 gm 02/13/18 15:14 02/13/18 18:37 Invanz IM 02/13/18 15:15 Not Given ONETIME ONE Ertapenem 1 gm 02/13/18 15:53 02/13/18 16:00 Invanz IVPUSH 02/13/18 15:54 1 gm STAT ONE Administration Promethazine HCl 12.5 mg/ 100.5 mls @ 400 mls/hr 02/13/18 16:13 02/13/18 16: 23 Sodium Chloride IV 02/13/18 16:28 400 mls/hr ONETIME ONE Administration Vancomycin HCl 1,250 mg/ 250 mls @ 200 mls/hr 02/13/18 17:59 02/13/18 18:20 Sodium Chloride IV 02/13/18 19:13 200 mls/hr STAT ONE Administration Non-Formulary Medication 50 mg 02/13/18 19:05 Hydroxyzine Pamoate [Vistaril] PO Q6H PRN Anxiety Non-Formulary Medication 5 unit 02/13/18 20:00 Insulin Lispro [Humalog Kwikpen U-100] SQ TID [facility] Non-Formulary Medication 2.5 mg 02/13/18 19:15 02/13/18 22:03 Warfarin PO Not Given DAILY [facility] Oxycodone HCl 5 mg 02/13/18 19:05 Oxycodone PO Q4H PRN Pain (severe 7-10) Sodium Chloride 10 ml 02/13/18 15:11 Saline Flush FLUSH ASDIRECTED PRN Keep Vein Open Departure - Departure Time of Disposition: 18:28 Disposition: Admitted As Inpatient 68 Clinical Impression: Cellulitis Qualifiers: Site of cellulitis: extremity Laterality: left - Discharge Information - My Orders Last 24 Hours: My Active Orders 02/13/18 15:12 Peripheral IV Insertion Adult [OM.PC] Routine 02/13/18 15:13 Blood Culture x2 Reflex Set [OM.PC] Stat 02/13/18 15:15 Lactated Ringers [Ringers, Lactated] 1,000 ml IV ASDIRECTED 02/13/18 15:24 CULTURE BLOOD [BC] Stat 02/13/18 15:30 CULTURE BLOOD [BC] Stat 02/13/18 15:45 CULTURE WOUND [RM] Routine - Assessment/Plan Last 24 Hours: My Active Orders 02/13/18 15:12 Peripheral IV Insertion Adult [OM.PC] Routine 02/13/18 15:13 Blood Culture x2 Reflex Set [OM.PC] Stat 02/13/18 15:15 Lactated Ringers [Ringers, Lactated] 1,000 ml IV ASDIRECTED 02/13/18 15:24 CULTURE BLOOD [BC] Stat 02/13/18 15:30 CULTURE BLOOD [BC] Stat 02/13/18 15:45 CULTURE WOUND [RM] Routine
[2018-02-14] MEDS: Omeprazole 20 MG Cap.CR PO SCH (07:00)
[2018-02-14] MEDS: amLODIPine 10 MG Tab PO SCH (08:16)
[2018-02-14] MEDS: Magnesium Chloride 64 MG Tab.ER PO SCH (08:16)
[2018-02-14] MEDS: Sertraline 100 MG Tab PO SCH (08:16)
[2018-02-14] MEDS: Nicotine 7 MG/24 Hr Patch TRDERM SCH (08:17)
[2018-02-14] MEDS: Cyclobenzaprine 10 MG Tab PO SCH ×2 (08:17→19:54)
[2018-02-14] MEDS: Insulin Aspart 100 Units/ML 3 ML Pen SUBCUT SCH ×3 (08:17→17:35)
--- NOTE | 2018-02-14 09:03 | PCM.PN ---
- General Info Date of Service: 02/14/18 Subjective Update: 37 yo female hospital day #2 for left arm cellulitis after she failed outpatient therapy with cephalexin. Reports increased pain in her arm after having the tourniquet on for her blood draw this morning. Feels some of the redness is fading but now notes extension up the forearm. Area was not outlined yesterday. No fever or chills since admission. Patient denies any other symptoms. Is trying to limit oxycodone use as much as possible as she would like to get back off of opioids. - Review of Systems General: Reports: No Symptoms HEENT: Reports: No Symptoms Pulmonary: Reports: No Symptoms Cardiovascular: Reports: No Symptoms Gastrointestinal: Reports: Nausea Genitourinary: Reports: No Symptoms Musculoskeletal: Reports: Arm Pain Skin: Reports: No Symptoms - Patient Data Vitals - Most Recent: Last Vital Signs Temp 36.9 C 02/14/18 05:33 Pulse 87 02/14/18 05:33 Resp 14 02/14/18 05:33 BP 122/68 02/14/18 05:33 Pulse Ox 98 02/14/18 05:33 Weight - Most Recent: 82.44 kg I&O - Last 24 Hours: Intake & Output 02/13/18 02/14/18 02/14/18 22:59 06:59 14:59 Intake Total 960 1445 500 Output Total 1550 700 Balance 960 -105 -200 Lab Results Last 24 Hours: Laboratory Results - last 24 hr 02/13/18 02/13/18 02/13/18 Range/Units 15:24 15:24 15:24 WBC 6.5 (4.0-10.0) x10^3/uL RBC 3.99 L (4.00-5.50) x10^6/uL Hgb 11.6 L (12.0-16.0) g/dL Hct 32.7 L (33.0-47.0) % MCV 82.0 (78.0-93.0) fL MCH 29.1 (26.0-32.0) pg MCHC 35.5 (32.0-36.0) g/dL RDW Coeff of Roderick 14.5 (10.0-15.0) % Plt Count 272 (130-400) x10^3/uL Neut % (Auto) 76.0 (50.0-80.0) % Lymph % (Auto) 16.8 L (25.0-50.0) % [place] % (Auto) 6.0 (2.0-11.0) % Eos % (Auto) 0.6 (0.0-4.0) % Baso % (Auto) 0.6 (0.2-1.2) % PT 21.8 H (9.6-11.4) SEC INR 2.1 (2.0-3.5) Sodium 132 L (136-145) mmol/L Potassium 3.7 (3.5-5.1) mmol/L Chloride 97 L (98-107) mmol/L Carbon Dioxide 26 (21-32) mmol/L Anion Gap 12.7 (10-20) mmol/L BUN 7 (7-18) mg/dL Creatinine 0.8 (0.55-1.02) mg/dL Est Cr Clr Drug Dosing 102.58 mL/min Estimated GFR (MDRD) > 60 Glucose 306 H (74-106) mg/dL POC Glucose (74-106) mg/dL Lactic Acid (0.4-2.0) mmol/L Calcium 8.9 (8.5-10.1) mg/dL Corrected Calcium 9.46 (8.5-10.1) mg/dL Phosphorus 3.9 (2.6-4.7) mg/dL Magnesium 1.4 L (1.8-2.4) mg/dL Total Bilirubin 0.4 (0.2-1.0) mg/dL AST 14 L (15-37) U/L ALT 17 (14-59) U/L Alkaline Phosphatase 122 H (46-116) U/L C-Reactive Protein 15.5 H (<=0.9) mg/dL Total Protein 7.3 (6.4-8.2) g/dL Albumin 3.3 L (3.4-5.0) g/dL Globulin 4.0 Albumin/Globulin Ratio 0.83 TSH, Ultra Sensitive 0.703 (0.358-3.74) uIU/mL Urine HCG, Qual (NEGATIVE) Ethyl Alcohol < 3 (0-3) mg/dL 02/13/18 02/13/18 02/13/18 Range/Units 15:24 18:19 20:17 WBC (4.0-10.0) x10^3/uL RBC (4.00-5.50) x10^6/uL Hgb (12.0-16.0) g/dL Hct (33.0-47.0) % MCV (78.0-93.0) fL MCH (26.0-32.0) pg MCHC (32.0-36.0) g/dL RDW Coeff of Roderick (10.0-15.0) % Plt Count (130-400) x10^3/uL Neut % (Auto) (50.0-80.0) % Lymph % (Auto) (25.0-50.0) % [place] % (Auto) (2.0-11.0) % Eos % (Auto) (0.0-4.0) % Baso % (Auto) (0.2-1.2) % PT (9.6-11.4) SEC INR (2.0-3.5) Sodium (136-145) mmol/L Potassium (3.5-5.1) mmol/L Chloride (98-107) mmol/L Carbon Dioxide (21-32) mmol/L Anion Gap (10-20) mmol/L BUN (7-18) mg/dL Creatinine (0.55-1.02) mg/dL Est Cr Clr Drug Dosing mL/min Estimated GFR (MDRD) Glucose (74-106) mg/dL POC Glucose 250 H (74-106) mg/dL Lactic Acid 0.9 (0.4-2.0) mmol/L Calcium (8.5-10.1) mg/dL Corrected Calcium (8.5-10.1) mg/dL Phosphorus (2.6-4.7) mg/dL Magnesium (1.8-2.4) mg/dL Total Bilirubin (0.2-1.0) mg/dL AST (15-37) U/L ALT (14-59) U/L Alkaline Phosphatase (46-116) U/L C-Reactive Protein (<=0.9) mg/dL Total Protein (6.4-8.2) g/dL Albumin (3.4-5.0) g/dL Globulin Albumin/Globulin Ratio TSH, Ultra Sensitive (0.358-3.74) uIU/mL Urine HCG, Qual Negative (NEGATIVE) Ethyl Alcohol (0-3) mg/dL 02/13/18 02/14/18 02/14/18 Range/Units 21:58 00:41 07:00 WBC (4.0-10.0) x10^3/uL RBC (4.00-5.50) x10^6/uL Hgb (12.0-16.0) g/dL Hct (33.0-47.0) % MCV (78.0-93.0) fL MCH (26.0-32.0) pg MCHC (32.0-36.0) g/dL RDW Coeff of Roderick (10.0-15.0) % Plt Count (130-400) x10^3/uL Neut % (Auto) (50.0-80.0) % Lymph % (Auto) (25.0-50.0) % [place] % (Auto) (2.0-11.0) % Eos % (Auto) (0.0-4.0) % Baso % (Auto) (0.2-1.2) % PT (9.6-11.4) SEC INR (2.0-3.5) Sodium (136-145) mmol/L Potassium (3.5-5.1) mmol/L Chloride (98-107) mmol/L Carbon Dioxide (21-32) mmol/L Anion Gap (10-20) mmol/L BUN (7-18) mg/dL Creatinine 0.7 (0.55-1.02) mg/dL Est Cr Clr Drug Dosing 117.23 mL/min Estimated GFR (MDRD) > 60 Glucose (74-106) mg/dL POC Glucose 212 H 237 H (74-106) mg/dL Lactic Acid (0.4-2.0) mmol/L Calcium (8.5-10.1) mg/dL Corrected Calcium (8.5-10.1) mg/dL Phosphorus (2.6-4.7) mg/dL Magnesium (1.8-2.4) mg/dL Total Bilirubin (0.2-1.0) mg/dL AST (15-37) U/L ALT (14-59) U/L Alkaline Phosphatase (46-116) U/L C-Reactive Protein (<=0.9) mg/dL Total Protein (6.4-8.2) g/dL Albumin (3.4-5.0) g/dL Globulin Albumin/Globulin Ratio TSH, Ultra Sensitive (0.358-3.74) uIU/mL Urine HCG, Qual (NEGATIVE) Ethyl Alcohol (0-3) mg/dL 02/14/18 Range/Units 07:00 WBC (4.0-10.0) x10^3/uL RBC (4.00-5.50) x10^6/uL Hgb (12.0-16.0) g/dL Hct (33.0-47.0) % MCV (78.0-93.0) fL MCH (26.0-32.0) pg MCHC (32.0-36.0) g/dL RDW Coeff of Roderick (10.0-15.0) % Plt Count (130-400) x10^3/uL Neut % (Auto) (50.0-80.0) % Lymph % (Auto) (25.0-50.0) % [place] % (Auto) (2.0-11.0) % Eos % (Auto) (0.0-4.0) % Baso % (Auto) (0.2-1.2) % PT 20.5 H (9.6-11.4) SEC INR 2.0 (2.0-3.5) Sodium (136-145) mmol/L Potassium (3.5-5.1) mmol/L Chloride (98-107) mmol/L Carbon Dioxide (21-32) mmol/L Anion Gap (10-20) mmol/L BUN (7-18) mg/dL Creatinine (0.55-1.02) mg/dL Est Cr Clr Drug Dosing mL/min Estimated GFR (MDRD) Glucose (74-106) mg/dL POC Glucose (74-106) mg/dL Lactic Acid (0.4-2.0) mmol/L Calcium (8.5-10.1) mg/dL Corrected Calcium (8.5-10.1) mg/dL Phosphorus (2.6-4.7) mg/dL Magnesium (1.8-2.4) mg/dL Total Bilirubin (0.2-1.0) mg/dL AST (15-37) U/L ALT (14-59) U/L Alkaline Phosphatase (46-116) U/L C-Reactive Protein (<=0.9) mg/dL Total Protein (6.4-8.2) g/dL Albumin (3.4-5.0) g/dL Globulin Albumin/Globulin Ratio TSH, Ultra Sensitive (0.358-3.74) uIU/mL Urine HCG, Qual (NEGATIVE) Ethyl Alcohol (0-3) mg/dL Med Orders - Current: Current Medications Acetaminophen (Tylenol) 650 mg PO Q4H PRN PRN Reason: Pain (Mild 1-3)/fever Last Admin: 02/13/18 21:47 Dose: 650 mg Al Hydroxide/Mg Hydroxide (Mag-Al Plus) 30 ml PO QID PRN PRN Reason: Dyspepsia Amlodipine Besylate (Norvasc) 10 mg PO DAILY [facility] Last Admin: 02/14/18 08:16 Dose: 10 mg Atorvastatin Calcium (Lipitor) 10 mg PO BEDTIME [facility] Last Admin: 02/13/18 21:50 Dose: 10 mg Ceftriaxone Sodium (Rocephin) 1 gm IVPUSH DAILY [facility] Cyclobenzaprine HCl (Flexeril) 5 mg PO BID [facility] Last Admin: 02/14/18 08:17 Dose: 5 mg Fentanyl (Duragesic) 25 mcg TRDERM Q72H [facility] Last Admin: 02/13/18 21:03 Dose: Not Given Fentanyl (Duragesic) 25 mcg TRDERM Q72H [facility] Gabapentin (Neurontin) 300 mg PO BEDTIME [facility] Last Admin: 02/13/18 21:47 Dose: 300 mg Gabapentin (Neurontin) 600 mg PO BID@1000,1500 [facility] Hydroxyzine HCl (Atarax) 50 mg PO Q6H PRN PRN Reason: Anxiety Last Admin: 02/14/18 05:44 Dose: 50 mg Lactated Ringer's (Ringers, Lactated) 1,000 mls @ 500 mls/hr IV ASDIRECTED [facility] Last Admin: 02/14/18 05:41 Dose: 500 mls/hr Vancomycin HCl 1,250 mg/ (Sodium Chloride) 250 mls @ 200 mls/hr IV Q12H [facility] Last Admin: 02/14/18 05:40 Dose: 200 mls/hr Insulin Aspart (Novolog) 5 unit SUBCUT TIDMEALS [facility] Last Admin: 02/14/18 08:17 Dose: Not Given Insulin Detemir (Levemir) 30 unit SUBCUT BEDTIME [facility] Last Admin: 02/13/18 21:52 Dose: 30 units Magnesium Chloride (Mag-64) 64 mg PO DAILY [facility] Last Admin: 02/14/18 08:16 Dose: 64 mg Miscellaneous Information (Remove Patch) 1 ea TRDERM Q72H [facility] Nicotine (Habitrol) 7 mg TRDERM DAILY [facility] Last Admin: 02/14/18 08:17 Dose: 7 mg Omeprazole (Omeprazole) 20 mg PO DAILY@0700 [facility] Last Admin: 02/14/18 07:00 Dose: 20 mg Ondansetron HCl (Zofran Odt) 4 mg PO Q4H PRN PRN Reason: Nausea Oxycodone HCl (Oxycodone) 5 mg PO Q4H PRN PRN Reason: Pain (moderate 4-6) Promethazine HCl (Phenergan) 25 mg PO Q8H PRN PRN Reason: Nausea/Vomiting Last Admin: 02/13/18 21:46 Dose: 25 mg Sertraline HCl (Zoloft) 200 mg PO DAILY [facility] Last Admin: 02/14/18 08:16 Dose: 200 mg Sodium Chloride (Saline Flush) 10 ml FLUSH ASDIRECTED PRN PRN Reason: Keep Vein Open Warfarin Sodium (Coumadin) 2.5 mg PO BEDTIME [facility] Last Admin: 02/13/18 21:46 Dose: 2.5 mg Warfarin Sodium (Coumadin) 2.5 mg PO BEDTIME [facility] Discontinued Medications Al Hydroxide/Mg Hydroxide (Mag-Al Plus) 30 ml PO Q6H PRN PRN Reason: Heartburn Atorvastatin Calcium (Lipitor) 10 mg PO BEDTIME [facility] Ertapenem (Invanz) 1 gm IM ONETIME ONE Stop: 02/13/18 15:15 Last Admin: 02/13/18 18:37 Dose: Not Given Ertapenem (Invanz) 1 gm IVPUSH STAT ONE Stop: 02/13/18 15:54 Last Admin: 02/13/18 16:00 Dose: 1 gm Promethazine HCl 12.5 mg/ (Sodium Chloride) 100.5 mls @ 400 mls/hr IV ONETIME ONE Stop: 02/13/18 16:28 Last Admin: 02/13/18 16:23 Dose: 400 mls/hr Vancomycin HCl 1,250 mg/ (Sodium Chloride) 250 mls @ 200 mls/hr IV STAT ONE Stop: 02/13/18 19:13 Last Admin: 02/13/18 18:20 Dose: 200 mls/hr Non-Formulary Medication (Hydroxyzine Pamoate [Vistaril]) 50 mg PO Q6H PRN PRN Reason: Anxiety Non-Formulary Medication (Insulin Lispro [Humalog Kwikpen U-100]) 5 unit SQ TID [facility] Non-Formulary Medication (Warfarin) 2.5 mg PO DAILY [facility] Last Admin: 02/13/18 22:03 Dose: Not Given Oxycodone HCl (Oxycodone) 5 mg PO Q4H PRN PRN Reason: Pain (severe 7-10) Sodium Chloride (Saline Flush) 10 ml FLUSH ASDIRECTED PRN PRN Reason: Keep Vein Open - Exam General: Alert, Cooperative, No Acute Distress HEENT: Mucous Membr. Moist/[place] Neck: Supple, Trachea Midline, No Thyromegaly. No: Lymphadenopathy Lungs: Clear to Auscultation, Normal Respiratory Effort Cardiovascular: Regular Rate, Regular Rhythm, No Murmurs GI/Abdominal Exam: Normal Bowel Sounds, Soft, Non-Tender, No Organomegaly, No Distention, No Mass Extremities: No Pedal Edema, Normal Capillary Refill, Other (does have some petechiae on the legs bilaterally; left arm with bright erythema that is sharply demarcated at the distal end and less so at the proximal end - is extending up the forearm slightly but this portion is very faint - tenderness to palpation associated with this but no underlying fluctuance; does have tender axillary lymphadenopathy on the left also) Skin: Warm, Dry - Problem List & Annotations (1) Cellulitis SNOMED Code(s): 682198491 Code(s): L03.90 - CELLULITIS, UNSPECIFIED Status: Acute Priority: High Current Visit: Yes Qualifiers: Site of cellulitis: extremity Site of cellulitis of extremity: upper extremity Laterality: left Qualified Code(s): L03.114 - Cellulitis of left upper limb Annotation/Comment:: - Appearance of cellulitis vs. erysipelas depending on which part of her arm is looked at. - Repeat blood cultures pending. Were negative from last week's clinic visit. - Patient afebrile and does not meet sepsis criteria. - Sounds like it may have progressed somewhat from yesterday. Nursing will outline it this morning and I will re-examine at noon. If continuing to progress , may need transfer to [place]. - Will need continued coverage for MRSA with vancomycin. - Would also cover with ceftriaxone as well for more traditional causes of cellulitis and for gram negatives. Initial dose of invanz appropriate; however, current guidelines do not list this as initial IV therapy. Can reconsider this is progressing despite ceftriaxone + vancomycin. - Broad coverage is indicated based on recent prolonged hospitalization. - Patient does not meet sepsis criteria. Will allow her to take PO's ad rakan. IV bolus PRN. (2) Hypertension SNOMED Code(s): 84367963 Code(s): I10 - ESSENTIAL (PRIMARY) HYPERTENSION Status: Chronic Current Visit: Yes Qualifiers: Hypertension type: essential hypertension Qualified Code(s): I10 - Essential (primary) hypertension Annotation/Comment:: - Continue amlodipine. (3) Bipolar 1 disorder SNOMED Code(s): 872450422 Code(s): F31.9 - BIPOLAR DISORDER, UNSPECIFIED Status: Chronic Priority: Medium Current Visit: Yes Annotation/Comment:: - Continue latuda. - Social work to meet with patient regarding moving her appointment that was scheduled in [place] today. (4) DVT (deep venous thrombosis) SNOMED Code(s): 551478932 Code(s): I82.409 - ACUTE EMBOLISM AND THOMBOS UNSP DEEP VN UNSP LOWER EXTREMITY Status: Chronic Current Visit: Yes Qualifiers: DVT location: lower extremity Affected thrombotic vein of extremity: unspecified vein of extremity Chronicity: acute Laterality: right Qualified Code(s): I82.401 - Acute embolism and thrombosis of unspecified deep veins of right lower extremity Annotation/Comment:: - Provoked by extended hospitalization. - INR therapeutic. - Continue warfarin per home dosing. - Will monitor INR daily given antibiotic use. (5) Diabetes SNOMED Code(s): 71138462 Code(s): E11.9 - TYPE 2 DIABETES MELLITUS WITHOUT COMPLICATIONS Status: Chronic Priority: Medium Current Visit: Yes Qualifiers: Diabetes mellitus type: type 1 Diabetes mellitus complication status: with neurologic complications Diabetes mellitus complication detail: with polyneuropathy Qualified Code(s): E10.42 - Type 1 diabetes mellitus with diabetic polyneuropathy Annotation/Comment:: - Glucoses mostly slightly high but acceptable; did have a low this am. - Continue current insulin regimen. - [employer] consult has been ordered. - Continue gabapentin. (6) Opiate addiction SNOMED Code(s): 94767882 Code(s): F11.20 - OPIOID DEPENDENCE, UNCOMPLICATED Status: Chronic Priority: Low Current Visit: Yes Qualifiers: Substance use status: in withdrawal Qualified Code(s): F11.23 - Opioid dependence with withdrawal Annotation/Comment:: - As above, social work to meet with patient today to move her appointment scheduled for [place]. - She plans to continue the fentanyl patch but not to take any oxycodone. - Will assist with symptoms of withdrawal as able. (7) Nausea alone SNOMED Code(s): 991195284 Code(s): R11.0 - NAUSEA Status: Acute Priority: Low Current Visit: No Annotation/Comment:: - Patient has zofran ordered PRN. - Problem List Review Problem List Initiated/Reviewed/Updated: Yes - My Orders Last 24 Hours: My Active Orders 02/14/18 09:00 cefTRIAXone [Rocephin] 1 gm IVPUSH DAILY - Assessment Assessment:: 37 yo female admitted with cellulitis that failed outpatient therapy. Stable/ mildly worse today. Nursing will outline the area of involvement. - Plan Plan:: See details under problems above. Possibly slightly worse today but still within 24 hours of IV antibiotics. Therefore, will continue vancomycin and also add ceftriaxone. Will not continue invanz as documented above. Does not meet sepsis criteria; blood cultures pending. Patient can eat and drink ad rakan; will IV bolus as needed. Continue home medications. Social work to meet with her today regarding rescheduling her [place] appointment that was scheduled for today in regard to her opioid addiction and mental health. Patient is full code. Anticipate she will be hospitalized for another 1-2 days to get her cellulitis improving prior to discharge. She is therapeutic on warfarin so does not require other VTE prophylaxis.
[2018-02-14] MEDS: cefTRIAXone 1 GM Vial IVPUSH SCH (09:22)
[2018-02-14] MEDS: Gabapentin 300 MG Cap PO SCH ×3 (09:24→19:54)
[2018-02-14] MEDS: Promethazine 25 MG Tab PO PRN (10:38)
[2018-02-14] MEDS: oxyCODONE 5 MG Tab PO PRN ×3 (12:21→21:39)
--- NOTE | 2018-02-14 13:15 | PCM.SN ---
- Free Text/Narrative Note: Checked on patient over the noon hour. Reports feeling overall unwell. Vitals and glucose stable. Erythema on her arm is receding from the outlines drawn this morning. Current symptoms likely from withdrawal. She is drinking well. Will continue current management and check on her arm again later this afternoon.
[2018-02-14] MEDS: Acetaminophen 325 MG Tab PO PRN ×2 (17:39→23:52)
--- NOTE | 2018-02-14 18:08 | PCM.SN ---
- Free Text/Narrative Note: Checked on patient again this pm. Erythema continues to receded from outline drawn earlier today. Will continue current antibiotics. Glucoses have been low recurrently today. Will decrease levemir to 25 units. D/C novolog with meals and do sliding scale instead. Check POC glucose at 2 am with these changes and hypoglycemia today. Patient will be signed out to PCP who will see her tomorrow.
[2018-02-14] MEDS: Warfarin 2.5 MG Tab PO SCH (19:53)
[2018-02-14] MEDS: atorvaSTATin 10 MG Tab PO SCH (19:55)
[2018-02-14] MEDS ORDERED: Insulin Detemir 100 Units/ML 3 ML Pen SUBCUT SCH (20:00)
[2018-02-15] MEDS: oxyCODONE 5 MG Tab PO PRN ×3 (05:04→15:39)
[2018-02-15] MEDS: Omeprazole 20 MG Cap.CR PO SCH (06:39)
[2018-02-15 06:50] LABS: CHLORIDE,CL 108 mmol/L (98-107); SODIUM,NA 144 mmol/L (136-145)
[2018-02-15] MEDS ORDERED: Vancomycin 500 MG SDV ONE (07:05)
[2018-02-15] MEDS ORDERED: fentaNYL 25 MCG/HR Transdermal Patch TRDERM SCH (08:00)
[2018-02-15] MEDS: Cyclobenzaprine 10 MG Tab PO SCH ×2 (08:24→20:52)
[2018-02-15] MEDS: Magnesium Chloride 64 MG Tab.ER PO SCH (08:25)
[2018-02-15] MEDS: Sertraline 100 MG Tab PO SCH (08:25)
[2018-02-15] MEDS: Nicotine 7 MG/24 Hr Patch TRDERM SCH (08:25)
[2018-02-15] MEDS: amLODIPine 10 MG Tab PO SCH (08:25)
[2018-02-15] MEDS: Insulin Aspart 100 Units/ML 3 ML Pen SUBCUT SCH ×3 (08:26→17:51)
[2018-02-15] MEDS: Acetaminophen 325 MG Tab PO PRN ×2 (08:45→14:18)
[2018-02-15] MEDS: hydrOXYzine HCl 25 MG Tab PO PRN ×3 (08:45→21:42)
[2018-02-15] MEDS: Promethazine 25 MG Tab PO PRN (08:45)
[2018-02-15] MEDS: cefTRIAXone 1 GM Vial IVPUSH SCH (08:51)
[2018-02-15] MEDS: Gabapentin 300 MG Cap PO SCH ×3 (10:55→20:53)
[2018-02-15] MEDS: Silver Sulfadiazine 1% Crm 50 GM Tube TOP SCH ×2 (12:55→21:44)
[2018-02-15] MEDS ORDERED: Warfarin 2.5 MG Tab PO ONE (13:43)
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
[2018-02-15] MEDS ORDERED: Ketorolac 30 MG/ML SDV IVPUSH ONE (15:48)
[2018-02-15] MEDS ORDERED: Haloperidol Lactate 5 MG/ML SDV IV PRN (16:45)
[2018-02-15] MEDS ORDERED: LORazepam 2 MG/ML SDV IVPUSH ONE (17:33)
[2018-02-15] MEDS ORDERED: Insulin Detemir 100 Units/ML 3 ML Pen SUBCUT SCH (20:00)
[2018-02-15] MEDS ORDERED: Warfarin 2.5 MG Tab PO SCH (20:00)
[2018-02-15] MEDS: atorvaSTATin 10 MG Tab PO SCH (20:53)
[2018-02-15] MEDS: LORazepam 1 MG Tab PO PRN (21:41)
[2018-02-16] MEDS: oxyCODONE 5 MG Tab PO PRN ×2 (05:17→09:14)
[2018-02-16] MEDS: LORazepam 1 MG Tab PO PRN ×2 (05:18→09:14)
[2018-02-16 05:23] VITALS: BP 132/92
[2018-02-16] MEDS: Omeprazole 20 MG Cap.CR PO SCH ×2 (05:38→06:58)
[2018-02-16] MEDS: Cyclobenzaprine 10 MG Tab PO SCH (08:05)
[2018-02-16] MEDS: hydrOXYzine HCl 25 MG Tab PO PRN (08:05)
[2018-02-16] MEDS: Nicotine 7 MG/24 Hr Patch TRDERM SCH ×2 (08:06→08:08)
[2018-02-16] MEDS: amLODIPine 10 MG Tab PO SCH (08:06)
[2018-02-16] MEDS: Magnesium Chloride 64 MG Tab.ER PO SCH (08:06)
[2018-02-16] MEDS: Silver Sulfadiazine 1% Crm 50 GM Tube TOP SCH (08:06)
[2018-02-16] MEDS: Sertraline 100 MG Tab PO SCH (08:06)
[2018-02-16] MEDS: Insulin Aspart 100 Units/ML 3 ML Pen SUBCUT SCH (08:06)
--- NOTE | 2018-02-16 08:12 | PCM.SN ---
- Free Text/Narrative Note: Nursing called me last evening that the patient was very anxious and was wanting to leave AMA to commit suicide, Haldol had no affect. I did order Iv ativan and she rested well for several hours and then she woke up and was having the same symptoms again so oral ativan was started. PCP is aware. Patient here with an overdose and is awaiting a psych bed. No requests for pain meds were made it was only for anxiety.
[2018-02-16] MEDS: cefTRIAXone 1 GM Vial IVPUSH SCH (09:00)
[2018-02-16] MEDS: Gabapentin 300 MG Cap PO SCH (09:14)
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
== END 2018-02-16 10:15 | disposition other institution (70) | DRG 603 ==
LOC: VM.ED 14:39 → VM.MS 16:41
PROVIDERS: ADMIT Internal Medicine; ATTEND Family Medicine
DX: L03.114 Cellulitis of left upper limb (principal); I82.4Z1 Acute embolism and thrombosis of unspecified deep veins of right distal lower extremity; F41.9 Anxiety disorder, unspecified; E11.9 Type 2 diabetes mellitus without complications; F11.23 Opioid dependence with withdrawal; K21.9 Gastro-esophageal reflux disease without esophagitis; Z88.8 Allergy status to other drugs, medicaments and biological substances; G89.29 Other chronic pain; M54.9 Dorsalgia, unspecified; Z86.718 Personal history of other venous thrombosis and embolism; E10.42 Type 1 diabetes mellitus with diabetic polyneuropathy; E10.649 Type 1 diabetes mellitus with hypoglycemia without coma; I10 Essential (primary) hypertension; F31.9 Bipolar disorder, unspecified; F17.210 Nicotine dependence, cigarettes, uncomplicated; Z79.4 Long term (current) use of insulin; Z98.1 Arthrodesis status; Z79.899 Other long term (current) drug therapy
CPT/HCPCS: 36415; 80053; 83605; 83735; 84100; 84443; 85025; 85610; 86140; 87040 ×2; 87070; 96361; 96374; 96375; 99284; G0480; J1335; J2550; J7050; J7120; 80048; 80202; 81025; 82565; 82962; A9270-GY; J0696; J1630; J1815-GY; J1885; J2060; J3370

== ENCOUNTER 2018-03-06 09:24 | Emergency (ER) | payer MEDICAID ==
[2018-03-06 09:33] VITALS: BP 139/99
[2018-03-06] MEDS ORDERED: Sodium Chloride 0.9% 10 ML Syringe FLUSH PRN (09:39)
[2018-03-06] MEDS ORDERED: Sodium Chloride 0.9% 1,000 ML IV ONE (09:39)
[2018-03-06] MEDS ORDERED: Ketorolac 15 MG/ML SDV IVPUSH ONE (09:39)
--- NOTE | 2018-03-06 10:14 | EDM.PDOC ---
ED HPI GENERAL MEDICAL PROBLEM - General Chief Complaint: Back Pain or Injury Stated Complaint: LOW BACK PAIN Time Seen by Provider: 03/06/18 09:32 Source of Information: Reports: Patient History Limitations: Reports: No Limitations - History of Present Illness INITIAL COMMENTS - FREE TEXT/NARRATIVE: Patient reports bilateral flank pain that started this morning. She has no other complaints. Patient has been here on differing occasions for DKA, pain management. She rates her pain a 5. Was recently seen for outpatient addiction to opioids. No fever, abdominal pain, nausea, vomiting, chest pain. No burning, pain, frequency or other urinary symptoms. Onset: Today, Sudden Duration: Intermittent Location: Reports: Back Quality: Reports: Ache Severity: Moderate Associated Symptoms: Reports: No Other Symptoms Bilateral Lower Back Pain Score (Numeric/FACES): 5 - Related Data Allergies Allergy/AdvReac Type Severity Reaction Status Date / Time ibuprofen AdvReac Stomach Verified 03/06/18 09:35 Upset Home Meds: Home Meds Sertraline HCl [Zoloft] 200 mg PO DAILY 02/15/17 [History] Lurasidone HCl [Latuda] 80 mg PO DAILY 04/17/17 [History] atorvaSTATin [Lipitor] 10 mg PO BEDTIME 07/09/17 [History] Cyclobenzaprine HCl 5 mg PO BID 01/29/18 [History] Gabapentin [Neurontin] 300 mg PO DAILY 01/29/18 [History] Gabapentin [Neurontin] 600 mg PO BID 01/29/18 [History] Warfarin [Coumadin] 2.5 mg PO DAILY 01/29/18 [History] Calcium Acetate [PhosLo] 1,334 mg PO TID 02/12/18 [History] Omeprazole 20 mg PO DAILY 02/12/18 [History] amLODIPine Besylate [Norvasc] 10 mg PO DAILY 02/12/18 [History] hydrOXYzine Pamoate [Vistaril] 50 mg PO Q6H PRN 02/12/18 [History] Acetaminophen 1,000 mg PO Q6H PRN 02/13/18 [History] Alum Hydrox/Mag Hydrox/Simeth [Maalox Advanced] 30 ml PO Q6H PRN 02/13/18 [ History] Cephalexin [Keflex] 500 mg PO TID 02/13/18 [History] Dextrose [Glucose] 16 gm PO ASDIRECTED PRN 02/13/18 [History] fentaNYL [Fentanyl] 25 mcg TD Q72H 02/13/18 [History] Acetaminophen [Tylenol] 650 mg PO Q4H PRN tablet 02/16/18 [Rx] Alum Hydrox/Mag Hydrox/Simeth [Mag-Al Plus] 30 ml PO QID PRN cup 02/16/18 [Rx] Magnesium Chloride [Mag-64] 64 mg PO DAILY tab.er 02/16/18 [Rx] Nicotine [Habitrol] 7 mg TRDERM DAILY patch 02/16/18 [Rx] Sertraline [Zoloft] 200 mg PO DAILY tablet 02/16/18 [Rx] Silver Sulfadiazine [Silvadene 1% Cream 50 GM] 1 gm TOP BID #1 tube 02/16/18 [Rx ] Warfarin [Coumadin] 3.75 mg PO BEDTIME tablet 02/16/18 [Rx] hydrOXYzine HCl [hydrOXYzine] 50 mg PO Q6H PRN tablet 02/16/18 [Rx] Insulin Glarg,Human.Rec.Analog [Lantus] 35 unit SUBCUT BEDTIME 03/06/18 [History ] Insulin Lispro [Humalog] 5 unit SQ TIDMEALS 03/06/18 [History] rOPINIRole HCl [Requip] 0.25 mg PO BEDTIME 03/06/18 [History] Past Medical History HEENT History: Reports: Impaired Vision Cardiovascular History: Reports: Blood Clots/VTE/DVT, Hypertension Respiratory History: Reports: Other (See Below) Other Respiratory History: hx of acute respiratory failure Gastrointestinal History: Reports: Irritable Bowel Syndrome, PUD Other Gastrointestinal History: acid reflux Genitourinary History: Reports: Urinary Incontinence, Other (See Below) Other Genitourinary History: hx of UTI, hx of acute kidney injury Musculoskeletal History: Reports: Other (See Below) Other Musculoskeletal History: right foot drop Neurological History: Reports: Neuropathy, Diabetic Psychiatric History: Reports: Anxiety, Bipolar, PTSD, Other (See Below) Other Psychiatric History: chronic narcotic use Endocrine/Metabolic History: Reports: Diabetes, Type II, Other (See Below) Other Endocrine/Metabolic History: 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, hx of ketoacidosis Hematologic History: Reports: Other (See Below) - Past Surgical History GI Surgical History: Reports: Cholecystectomy, Other (See Below) Other GI Surgeries/Procedures: Esophagus/ stomach repair Musculoskeletal Surgical History: Reports: Hip Replacement, Other (See Below) Other Musculoskeletal Surgeries/Procedures:: hx of carpal tunnel repair Social & Family History - Family History Family Medical History: Noncontributory - Tobacco Use Smoking Status *Q: Unknown Ever Smoked - Caffeine Use Caffeine Use: Reports: Coffee ED ROS GENERAL - Review of Systems Review Of Systems: See Below Constitutional: Reports: No Symptoms HEENT: Reports: No Symptoms Respiratory: Reports: No Symptoms Cardiovascular: Reports: No Symptoms Endocrine: Reports: No Symptoms GI/Abdominal: Reports: No Symptoms : Reports: No Symptoms Musculoskeletal: Reports: Back Pain Skin: Reports: No Symptoms Neurological: Reports: No Symptoms Psychiatric: Reports: No Symptoms Hematologic/Lymphatic: Reports: No Symptoms Immunologic: Reports: No Symptoms ED EXAM,LOWER BACK PAIN/INJURY - Physical Exam Exam: See Below Exam Limited By: No Limitations General Appearance: Alert, WD/WN, Mild Distress Eye Exam: Bilateral Eye: EOMI, PERRL Ears: Normal TMs Head: Atraumatic, Normocephalic Neck: Normal Inspection, Supple, Non-Tender, Full Range of Motion Respiratory/Chest: No Respiratory Distress, Lungs Clear, Normal Breath Sounds, No Accessory Muscle Use, Chest Non-Tender Cardiovascular: Normal Peripheral Pulses, Regular Rate, Rhythm, No Edema, No Gallop, No JVD, No Murmur, No Rub GI/Abdominal: Normal Bowel Sounds, Soft, Non-Tender, No Organomegaly, No Distention, No Abnormal Bruit, No Mass Back Exam: Normal Inspection, Full Range of Motion, CVA Tenderness (L), CVA Tenderness (R) Extremities: Normal Inspection, Normal Range of Motion, Non-Tender, No Pedal Edema, Normal Capillary Refill Neurological: Alert, Normal Mood/Affect, Normal Dorsiflexion, CN II-XII Intact, Normal Plantar Flexion, Normal Gait, Normal Reflexes, No Motor/Sensory Deficits , Oriented x 3 Psychiatric: Anxious Skin Exam: Warm, Dry, Intact, Normal Color, No Rash Lymphatic: No Adenopathy Course - Vital Signs Last Recorded V/S: Last Vital Signs Temp 36.5 C 03/06/18 09:30 Pulse 118 H 03/06/18 09:30 Resp 16 03/06/18 09:30 BP 139/99 H 03/06/18 09:30 Pulse Ox 99 03/06/18 09:30 - Orders/Labs/Meds Orders: Active Orders 24 hr Category Date Time Status CBC WITH AUTO DIFF [HEME] Stat Lab 03/06/18 09:33 Ordered COMPREHENSIVE METABOLIC PN,CMP [CHEM] Stat Lab 03/06/18 09:33 Ordered UA W/MICROSCOPIC [URIN] Stat Lab 03/06/18 09:33 Ordered Sodium Chloride 0.9% [Normal Saline] 1,000 ml Med 03/06/18 09:39 Ordered IV ONETIME Sodium Chloride 0.9% [Saline Flush] Med 03/06/18 09:39 Ordered 10 ml FLUSH ASDIRECTED PRN Saline Lock Insert [OM.PC] Routine Oth 03/06/18 09:39 Ordered Medication Orders Sodium Chloride (Normal Saline) 1,000 mls @ 999 mls/hr IV ONETIME ONE Stop: 03/06/18 10:39 Sodium Chloride (Saline Flush) 10 ml FLUSH ASDIRECTED PRN PRN Reason: Keep Vein Open Meds: Medications Generic Name Dose Route Start Last Admin Trade Name Freq PRN Reason Stop Dose Admin Sodium Chloride 1,000 mls @ 999 mls/hr 03/06/18 09:39 Normal Saline IV 03/06/18 10:39 ONETIME ONE Sodium Chloride 10 ml 03/06/18 09:39 Saline Flush FLUSH ASDIRECTED PRN Keep Vein Open Discontinued Medications Generic Name Dose Route Start Last Admin Trade Name Freq PRN Reason Stop Dose Admin Ketorolac Tromethamine 15 mg 03/06/18 09:39 Toradol IVPUSH 03/06/18 09:40 ONETIME ONE Departure - Departure Time of Disposition: 12:08 Disposition: Home, Self-Care 01 Condition: Good Clinical Impression: Back pain - Discharge Information Instructions: Back Pain, Adult Additional Instructions: Your CT does not show any acute indications for back or flank pain. You have grossly normal urine as well. You do have some sugar in the urine. Your labs are grossly normal. Your blood sugar was elevated and you did receive some insulin here for that. I have given you toradol, tramadol, and morphine for pain. I would advise taking the medications you have at home as needed for pain. It should be noted that you were discharged from here not to long ago and escorted to treatment for anxiety and opioid withdrawal. Please call with any questions or concerns. - Problem List & Annotations (1) Back pain SNOMED Code(s): 132409610 Code(s): M54.9 - DORSALGIA, UNSPECIFIED Status: Acute Priority: Medium Current Visit: Yes Qualifiers: Back pain location: low back pain Back pain laterality: bilateral Sciatica presence: without sciatica - Problem List Review Problem List Initiated/Reviewed/Updated: Yes - My Orders Last 24 Hours: My Active Orders 03/06/18 09:33 CBC WITH AUTO DIFF [HEME] Stat COMPREHENSIVE METABOLIC PN,CMP [CHEM] Stat UA W/MICROSCOPIC [URIN] Stat 03/06/18 09:39 Sodium Chloride 0.9% [Normal Saline] 1,000 ml IV ONETIME Sodium Chloride 0.9% [Saline Flush] 10 ml FLUSH ASDIRECTED PRN Saline Lock Insert [OM.PC] Routine - Assessment/Plan Last 24 Hours: My Active Orders 03/06/18 09:33 CBC WITH AUTO DIFF [HEME] Stat COMPREHENSIVE METABOLIC PN,CMP [CHEM] Stat UA W/MICROSCOPIC [URIN] Stat 03/06/18 09:39 Sodium Chloride 0.9% [Normal Saline] 1,000 ml IV ONETIME Sodium Chloride 0.9% [Saline Flush] 10 ml FLUSH ASDIRECTED PRN Saline Lock Insert [OM.PC] Routine Assessment:: bilateral flank pain Plan: Your CT does not show any acute indications for back or flank pain. You have grossly normal urine as well. You do have some sugar in the urine. Your labs are grossly normal. Your blood sugar was elevated and you did receive some insulin here for that. I have given you toradol, tramadol, and morphine for pain. I would advise taking the medications you have at home as needed for pain. It should be noted that you were discharged from here not to long ago and escorted to treatment for anxiety and opioid withdrawal. Please call with any questions or concerns.
[2018-03-06] MEDS ORDERED: traMADol 50 MG Tab PO ONE (10:25)
[2018-03-06 10:29] LABS: ANION GAP 13.7 mmol/L (10-20); CHLORIDE,CL 99 mmol/L (98-107); SODIUM,NA 131 mmol/L (136-145)
[2018-03-06] MEDS ORDERED: Insulin Aspart 100 Units/ML 3 ML Pen SUBCUT ONE (10:32)
[2018-03-06] MEDS ORDERED: INSULIN REGULAR IV ONE ×2 (10:44)
[2018-03-06] MEDS ORDERED: HUMAN IV ONE ×2 (10:44)
[2018-03-06] MEDS ORDERED: WATER IV ONE ×2 (10:44)
[2018-03-06] MEDS ORDERED: DEXTROSE 10% IV ONE ×2 (10:44)
[2018-03-06] MEDS ORDERED: Morphine 2 MG/ML Syringe IVPUSH ONE (10:55)
[2018-03-06] MEDS ORDERED: Insulin Regular, Human 100 Units/ML 3 ML Vial SUBCUT ONE (10:57)
[2018-03-06] MEDS ORDERED: methylPREDNISolone Sodium Succinate 125 MG/2 ML SDV IVPUSH ONE (11:57)
== END 2018-03-06 12:18 | disposition home or self-care (01) ==
LOC: VM.ED 09:24
DX: M54.5 Low back pain (principal); I10 Essential (primary) hypertension; F31.9 Bipolar disorder, unspecified; E11.9 Type 2 diabetes mellitus without complications; Z88.6 Allergy status to analgesic agent; Z79.4 Long term (current) use of insulin; Z79.899 Other long term (current) drug therapy
CPT/HCPCS: 36415; 74176; 80053; 81001; 81025; 83605; 85025; 96361; 96372; 96374; 96375; 99284; A9270; J1815; J1885; J2270; J2930; J7030

== ENCOUNTER 2018-04-20 16:24 | Emergency (ER) | payer MEDICAID ==
[2018-04-20 16:45] VITALS: BP 137/84
[2018-04-20] MEDS ORDERED: cefTRIAXone 2 GM Vial IM ONE (16:59)
--- NOTE | 2018-04-20 17:07 | EDM.PDOC ---
ED HPI GENERAL MEDICAL PROBLEM - General Chief Complaint: Skin Complaint Stated Complaint: foot infection Time Seen by Provider: 04/20/18 16:58 Source of Information: Reports: Patient History Limitations: Reports: No Limitations - History of Present Illness INITIAL COMMENTS - FREE TEXT/NARRATIVE: Patient presents with complaints of open sore on her right foot. She states she started wearing her foot brace for her foot drop yesterday and noticed an open sore with purulent drainage today. Due to her prior history of infection she wanted to be seen right away and started on antibiotic therapy. No fever or chills, no chest pain, SOB, change in LOC, no diarrhea, urinary symptoms. No other complaints except for red, swollen, infected looking right foot. Onset: Sudden Duration: Getting Worse Location: Reports: Lower Extremity, Right Severity: Moderate Improves with: Reports: None Treatments PURCHASING DEPARTMENT CLERK: Reports: Other (see below) Other Treatments PURCHASING DEPARTMENT CLERK: antibiotic ointment and drsg - Related Data Allergies Allergy/AdvReac Type Severity Reaction Status Date / Time ibuprofen AdvReac Stomach Verified 04/20/18 16:36 Upset Home Meds: Home Meds Sertraline HCl [Zoloft] 200 mg PO DAILY 02/15/17 [History] Lurasidone HCl [Latuda] 80 mg PO DAILY 04/17/17 [History] atorvaSTATin [Lipitor] 10 mg PO BEDTIME 07/09/17 [History] Cyclobenzaprine HCl 5 mg PO BID 01/29/18 [History] Gabapentin [Neurontin] 300 mg PO DAILY 01/29/18 [History] Gabapentin [Neurontin] 600 mg PO TID 01/29/18 [History] Warfarin [Coumadin] 2.5 mg PO DAILY 01/29/18 [History] Calcium Acetate [PhosLo] 1,334 mg PO TID 02/12/18 [History] Omeprazole 20 mg PO DAILY 02/12/18 [History] amLODIPine Besylate [Norvasc] 10 mg PO DAILY 02/12/18 [History] hydrOXYzine pamoate [Vistaril] 50 mg PO Q6H PRN 02/12/18 [History] Acetaminophen 1,000 mg PO Q6H PRN 02/13/18 [History] Alum Hydrox/Mag Hydrox/Simeth [Maalox Advanced] 30 ml PO Q6H PRN 02/13/18 [ History] Dextrose [Glucose] 16 gm PO ASDIRECTED PRN 02/13/18 [History] cephALEXin [Keflex] 500 mg PO TID 02/13/18 [History] fentaNYL [Fentanyl] 25 mcg TD Q72H 02/13/18 [History] Acetaminophen [Tylenol] 650 mg PO Q4H PRN tablet 02/16/18 [Rx] Alum Hydrox/Mag Hydrox/Simeth [Mag-Al Plus] 30 ml PO QID PRN cup 02/16/18 [Rx] Magnesium Chloride [Mag-64] 64 mg PO DAILY tab.er 02/16/18 [Rx] Nicotine [Habitrol] 7 mg TRDERM DAILY patch 02/16/18 [Rx] Sertraline [Zoloft] 200 mg PO DAILY tablet 02/16/18 [Rx] Silver Sulfadiazine [Silvadene 1% Cream 50 GM] 1 gm TOP BID #1 tube 02/16/18 [Rx ] Warfarin [Coumadin] 3.75 mg PO BEDTIME tablet 02/16/18 [Rx] hydrOXYzine HCl [hydrOXYzine] 50 mg PO Q6H PRN tablet 02/16/18 [Rx] Insulin Glarg,Human.Rec.Analog [Lantus] 35 unit SUBCUT BEDTIME 03/06/18 [History ] Insulin Lispro [Humalog] 5 unit SQ TIDMEALS 03/06/18 [History] rOPINIRole HCl [Requip] 0.25 mg PO BEDTIME 03/06/18 [History] Past Medical History HEENT History: Reports: Impaired Vision Cardiovascular History: Reports: Blood Clots/VTE/DVT, Hypertension Respiratory History: Reports: Other (See Below) Other Respiratory History: hx of acute respiratory failure Gastrointestinal History: Reports: Irritable Bowel Syndrome, PUD Other Gastrointestinal History: acid reflux Genitourinary History: Reports: Urinary Incontinence, Other (See Below) Other Genitourinary History: hx of UTI, hx of acute kidney injury Musculoskeletal History: Reports: Other (See Below) Other Musculoskeletal History: right foot drop Neurological History: Reports: Neuropathy, Diabetic Psychiatric History: Reports: Anxiety, Bipolar, PTSD, Other (See Below) Other Psychiatric History: chronic narcotic use Endocrine/Metabolic History: Reports: Diabetes, Type II, Other (See Below) Other Endocrine/Metabolic History: 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, hx of ketoacidosis Hematologic History: Reports: Other (See Below) - Past Surgical History GI Surgical History: Reports: Cholecystectomy, Other (See Below) Other GI Surgeries/Procedures: Esophagus/ stomach repair Musculoskeletal Surgical History: Reports: Hip Replacement, Other (See Below) Other Musculoskeletal Surgeries/Procedures:: hx of carpal tunnel repair Social & Family History - Family History Family Medical History: Noncontributory - Tobacco Use Smoking Status *Q: Current Every Day Smoker Years of Tobacco use: 14 Packs/Tins Daily: 1 - Caffeine Use Caffeine Use: Reports: Coffee - Recreational Drug Use Recreational Drug Use: No ED ROS GENERAL - Review of Systems Review Of Systems: See Below Constitutional: Reports: No Symptoms HEENT: Reports: No Symptoms Respiratory: Reports: No Symptoms Cardiovascular: Reports: No Symptoms Endocrine: Reports: No Symptoms GI/Abdominal: Reports: No Symptoms : Reports: No Symptoms Musculoskeletal: Reports: Foot Pain Skin: Reports: Erythema, Wound Neurological: Reports: No Symptoms Psychiatric: Reports: No Symptoms Hematologic/Lymphatic: Reports: No Symptoms Immunologic: Reports: No Symptoms ED EXAM, SKIN/RASH Exam: See Below Exam Limited By: No Limitations General Appearance: Alert, WD/WN, No Apparent Distress Respiratory/Chest: No Respiratory Distress, Lungs Clear, Normal Breath Sounds, No Accessory Muscle Use, Chest Non-Tender Cardiovascular: Normal Peripheral Pulses, Regular Rate, Rhythm, No Edema, No Gallop, No JVD, No Murmur, No Rub Peripheral Pulses: 2+: Posterior Tibial (L), Posterior Tibial (R), Dorsalis Pedis (L), Dorsalis Pedis (R) Extremities: Pedal Edema, Increased Warmth, Redness Neurological: Alert, Oriented, CN II-XII Intact, Normal Cognition, Normal Gait, Normal Reflexes, No Motor/Sensory Deficits Skin: Wound/Incision Location, Skin: Lower Extremity, Right (right foot) Characteristics: Papular, Erythematous Associated features: Warmth, Tenderness, Swelling, Inflammation, Weeping Lymphatic: No Adenopathy Course - Vital Signs Last Recorded V/S: Last Vital Signs Temp 36.4 C 04/20/18 16:25 Pulse 108 H 04/20/18 16:25 Resp 16 04/20/18 16:25 BP 137/84 04/20/18 16:25 Pulse Ox - Orders/Labs/Meds Orders: Active Orders 24 hr Category Date Time Status Foot 2V Rt [CR] Stat Exams 04/20/18 17:00 Taken CULTURE WOUND [RM] Stat Lab 04/20/18 17:30 Ordered Labs: Laboratory Tests 04/20/18 04/20/18 Range/Units 17:16 17:16 WBC 6.5 (4.0-10.0) x10^3/uL RBC 4.56 (4.00-5.50) x10^6/uL Hgb 13.3 (12.0-16.0) g/dL Hct 35.5 (33.0-47.0) % MCV 77.9 L D (78.0-93.0) fL MCH 29.2 (26.0-32.0) pg MCHC 37.5 H (32.0-36.0) g/dL RDW Coeff of Roderick 13.3 (10.0-15.0) % Plt Count 284 (130-400) x10^3/uL Neut % (Auto) 64.6 (50.0-80.0) % Lymph % (Auto) 25.8 (25.0-50.0) % [place] % (Auto) 5.4 (2.0-11.0) % Eos % (Auto) 3.4 (0.0-4.0) % Baso % (Auto) 0.8 (0.2-1.2) % Sodium 132 L (136-145) mmol/L Potassium 3.7 (3.5-5.1) mmol/L Chloride 95 L (98-107) mmol/L Carbon Dioxide 27 (21-32) mmol/L Anion Gap 13.7 (10-20) mmol/L BUN 8 (7-18) mg/dL Creatinine 0.8 (0.55-1.02) mg/dL Est Cr Clr Drug Dosing 102.58 mL/min Estimated GFR (MDRD) > 60 Glucose 530 H* (74-106) mg/dL Calcium 8.8 (8.5-10.1) mg/dL C-Reactive Protein 2.0 H (<=0.9) mg/dL Meds: Medications Discontinued Medications Generic Name Dose Route Start Last Admin Trade Name Freq PRN Reason Stop Dose Admin Ceftriaxone Sodium 2 gm 04/20/18 16:59 Rocephin IM 04/20/18 17:00 ONETIME ONE Ceftriaxone Sodium 2 gm/ 0 gm 04/20/18 17:23 04/20/18 17:35 Lidocaine HCl 4.2 ml IM 04/20/18 17:24 1 inj ONETIME ONE Administration - Re-Assessments/Exams Free Text/Narrative Re-Assessment/Exam: 04/20/18 18:08 Patient called with lab results. Negative x-ray for osteomyelitis, elevated glucose at 530 and CRP of 2.0 04/20/18 18:08 Departure - Departure Time of Disposition: 17:40 Disposition: Home, Self-Care 01 Condition: Good Clinical Impression: Cellulitis Qualifiers: Site of cellulitis of extremity: lower extremity Laterality: right - Discharge Information *PRESCRIPTION DRUG MONITORING PROGRAM REVIEWED*: Not Applicable *COPY OF PRESCRIPTION DRUG MONITORING REPORT IN PATIENT ISHAN: Not Applicable Instructions: Cellulitis, Adult, [id number] Referrals: Avila Aaron MD [Primary Care Provider] - Forms: ED Department Discharge Additional Instructions: Take all the Keflex unless you begin having allergic reactions to the medication such as rash and hives, feeling like your throat is closing and difficulty breathing. Finish the course even if you feel better. Stay well hydrated. Follow up on Wednesday or Wednesday with your primary doctor. We will call you if the swab indicates a switch in antibiotics is necessary. Please call if you have any further questions or concerns. - Problem List & Annotations (1) Cellulitis SNOMED Code(s): 723737958 Code(s): L03.90 - CELLULITIS, UNSPECIFIED Status: Acute Priority: High Qualifiers: Site of cellulitis of extremity: lower extremity Laterality: right - Problem List Review Problem List Initiated/Reviewed/Updated: Yes - My Orders Last 24 Hours: My Active Orders 04/20/18 17:00 Foot 2V Rt [CR] Stat 04/20/18 17:30 CULTURE WOUND [RM] Stat - Assessment/Plan Last 24 Hours: My Active Orders 04/20/18 17:00 Foot 2V Rt [CR] Stat 04/20/18 17:30 CULTURE WOUND [RM] Stat Assessment:: right foot cellulitis Plan: Take all the Keflex unless you begin having allergic reactions to the medication such as rash and hives, feeling like your throat is closing and difficulty breathing. Finish the course even if you feel better. Stay well hydrated. Follow up on Wednesday or Wednesday with your primary doctor. We will call you if the swab indicates a switch in antibiotics is necessary. Please call if you have any further questions or concerns.
[2018-04-20] MEDS ORDERED: cefTRIAXone 2 GM, Lidocaine 1% 4.2 ML IM ONE ×2 (17:23)
[2018-04-20 17:43] LABS: CHLORIDE,CL 95 mmol/L (98-107); SODIUM,NA 132 mmol/L (136-145)
[2018-04-20 17:47] LABS: ANION GAP 13.7 mmol/L (10-20)
== END 2018-04-20 17:47 | disposition home or self-care (01) ==
LOC: VM.ED 16:24
DX: L03.115 Cellulitis of right lower limb (principal); I10 Essential (primary) hypertension; E11.9 Type 2 diabetes mellitus without complications; F17.210 Nicotine dependence, cigarettes, uncomplicated; Z88.6 Allergy status to analgesic agent; Z79.899 Other long term (current) drug therapy
CPT/HCPCS: 36415; 73620-RT; 80048; 85025; 86140; 87070; 87077; 96372; 99283; J0696

== ENCOUNTER 2018-04-25 09:26 | Emergency (ER) | payer MEDICAID ==
[2018-04-25 09:40] VITALS: BP 128/84
[2018-04-25 10:38] LABS: ANION GAP 24.6 mmol/L (10-20); CHLORIDE,CL 96 mmol/L (98-107); SODIUM,NA 134 mmol/L (136-145)
--- NOTE | 2018-04-25 17:09 | EDM.PDOC ---
ED HPI GENERAL MEDICAL PROBLEM - General Chief Complaint: Chest Pain Time Seen by Provider: 04/25/18 09:38 Source of Information: Reports: Patient History Limitations: Reports: No Limitations - History of Present Illness INITIAL COMMENTS - FREE TEXT/NARRATIVE: Pt. presents to ER with complaints of anterior chest discomfort that started this AM. She states that she has a history of type 1 DM which is poorly controlled. She has an appointment with endocrinology tomorrow. States that the discomfort was resolving on arrival to ER. It was sharp and respirophasic in nature. No fever or chills. No shortness of breath. No nausea, vomiting or diarrhea. She states that he blood sugar was over 500mg./dl. at home today, and states that this is a consistent problem for her. Location: Reports: Chest Treatments PRODUCT DESIGNER: Reports: Aspirin, EKG, IV/IO Mid-Sternal Chest Pain Score (Numeric/FACES): 5 - Related Data Allergies Allergy/AdvReac Type Severity Reaction Status Date / Time ibuprofen AdvReac Stomach Verified 04/25/18 09:42 Upset Home Meds: Home Meds Lurasidone HCl [Latuda] 120 mg PO DAILY 04/17/17 [History] atorvaSTATin [Lipitor] 10 mg PO BEDTIME 07/09/17 [History] Cyclobenzaprine HCl 5 mg PO BID 01/29/18 [History] Gabapentin [Neurontin] 600 mg PO TID 01/29/18 [History] Warfarin [Coumadin] 2.5 mg PO DAILY 01/29/18 [History] Omeprazole 20 mg PO DAILY 02/12/18 [History] amLODIPine Besylate [Norvasc] 10 mg PO DAILY 02/12/18 [History] hydrOXYzine pamoate [Vistaril] 50 mg PO Q6H PRN 02/12/18 [History] Acetaminophen 1,000 mg PO Q6H PRN 02/13/18 [History] Alum Hydrox/Mag Hydrox/Simeth [Maalox Advanced] 30 ml PO Q6H PRN 02/13/18 [ History] Dextrose [Glucose] 16 gm PO ASDIRECTED PRN 02/13/18 [History] fentaNYL [Fentanyl] 25 mcg TD Q72H 02/13/18 [History] Sertraline [Zoloft] 200 mg PO DAILY tablet 02/16/18 [Rx] hydrOXYzine HCl [hydrOXYzine] 50 mg PO Q6H PRN tablet 02/16/18 [Rx] Insulin Glarg,Human.Rec.Analog [Lantus] 35 unit SUBCUT BEDTIME 03/06/18 [History ] Insulin Lispro [Humalog] 5 unit SQ TIDMEALS 03/06/18 [History] rOPINIRole HCl [Requip] 0.25 mg PO BEDTIME 03/06/18 [History] Buprenorphine HCl/Naloxone HCl [Zubsolv 5.7-1.4 mg Tablet Sl] 1 tab PO ASDIRECTED 04/25/18 [History] Ondansetron HCl [Zofran] 4 mg PO Q4H PRN 04/25/18 [History] Past Medical History HEENT History: Reports: Impaired Vision Cardiovascular History: Reports: Blood Clots/VTE/DVT, Hypertension Respiratory History: Reports: Other (See Below) Other Respiratory History: hx of acute respiratory failure Gastrointestinal History: Reports: Irritable Bowel Syndrome, PUD Other Gastrointestinal History: acid reflux Genitourinary History: Reports: Urinary Incontinence, Other (See Below) Other Genitourinary History: hx of UTI, hx of acute kidney injury Musculoskeletal History: Reports: Other (See Below) Other Musculoskeletal History: right foot drop Neurological History: Reports: Neuropathy, Diabetic Psychiatric History: Reports: Anxiety, Bipolar, PTSD, Other (See Below) Other Psychiatric History: chronic narcotic use Endocrine/Metabolic History: Reports: Diabetes, Type II, Other (See Below) Other Endocrine/Metabolic History: 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, hx of ketoacidosis Hematologic History: Reports: Other (See Below) - Past Surgical History GI Surgical History: Reports: Cholecystectomy, Other (See Below) Other GI Surgeries/Procedures: Esophagus/ stomach repair Musculoskeletal Surgical History: Reports: Hip Replacement, Other (See Below) Other Musculoskeletal Surgeries/Procedures:: hx of carpal tunnel repair Social & Family History - Family History Family Medical History: Noncontributory - Tobacco Use Smoking Status *Q: Current Every Day Smoker Years of Tobacco use: 15 Packs/Tins Daily: 1 - Caffeine Use Caffeine Use: Reports: Coffee ED ROS GENERAL - Review of Systems Review Of Systems: See Below Constitutional: Reports: No Symptoms HEENT: Reports: No Symptoms Respiratory: Reports: Shortness of Breath, Pleuritic Chest Pain Cardiovascular: Reports: No Symptoms Endocrine: Reports: High Glucose GI/Abdominal: Reports: No Symptoms : Reports: No Symptoms Musculoskeletal: Reports: No Symptoms Skin: Reports: No Symptoms Neurological: Reports: No Symptoms Psychiatric: Reports: No Symptoms Hematologic/Lymphatic: Reports: No Symptoms Immunologic: Reports: No Symptoms ED EXAM, GENERAL - Physical Exam Exam: See Below Exam Limited By: No Limitations General Appearance: Alert, WD/WN, No Apparent Distress Eye Exam: Bilateral Eye: EOMI, Normal Fundi, Normal Inspection, PERRL Neck: Normal Inspection, Supple, Non-Tender, Full Range of Motion Respiratory/Chest: No Respiratory Distress, Lungs Clear, Normal Breath Sounds, No Accessory Muscle Use, Chest Non-Tender Cardiovascular: Normal Peripheral Pulses, Regular Rate, Rhythm, No Edema, No Gallop, No JVD, No Murmur, No Rub GI/Abdominal: Normal Bowel Sounds, Soft, Non-Tender, No Organomegaly, No Distention, No Abnormal Bruit, No Mass (Female) Exam: Deferred Rectal (Female) Exam: Deferred Back Exam: Normal Inspection, Full Range of Motion, NT EKG INTERPRETATION Rhythm: NSR [place]: Normal P-Wave: Present QRS: Normal ST-T: Normal QT: Normal Course - Vital Signs Last Recorded V/S: Last Vital Signs Temp 36.7 C 04/25/18 09:26 Pulse 97 04/25/18 09:26 Resp 20 04/25/18 09:26 BP 128/84 04/25/18 09:26 Pulse Ox 98 04/25/18 09:26 - Orders/Labs/Meds Orders: Active Orders 24 hr Category Date Time Status Chest 2V [CR] Stat Exams 04/25/18 09:35 Taken Labs: Laboratory Tests 04/25/18 04/25/18 04/25/18 Range/Units 09:57 09:57 09:57 WBC 8.2 (4.0-10.0) x10^3/uL RBC 5.22 (4.00-5.50) x10^6/uL Hgb 15.0 D (12.0-16.0) g/dL Hct 41.0 (33.0-47.0) % MCV 78.5 (78.0-93.0) fL MCH 28.7 (26.0-32.0) pg MCHC 36.6 H (32.0-36.0) g/dL RDW Coeff of Roderick 13.5 (10.0-15.0) % Plt Count 389 D (130-400) x10^3/uL Neut % (Auto) 71.3 (50.0-80.0) % Lymph % (Auto) 23.0 L (25.0-50.0) % [place] % (Auto) 2.7 (2.0-11.0) % Eos % (Auto) 2.3 (0.0-4.0) % Baso % (Auto) 0.7 (0.2-1.2) % PT 11.2 D (9.6-11.4) SEC INR 1.1 L (2.0-3.5) D-Dimer, Quantitative (<=0.58) mg/LFEU POC ABG pH (7.35-7.45) POC ABG pCO2 (35-45) mmHG POC ABG pO2 (80-105) mmHG POC ABG HCO3 (22-26) mmol/L POC ABG Total CO2 (23-27) mmol/L POC ABG O2 Sat (95-98) % POC ABG Base Excess (-2-3) mmol/L POC FiO2 Sodium 134 L (136-145) mmol/L Potassium 3.6 (3.5-5.1) mmol/L Chloride 96 L (98-107) mmol/L Carbon Dioxide 17 L D (21-32) mmol/L Anion Gap 24.6 H (10-20) mmol/L BUN 10 (7-18) mg/dL Creatinine 0.8 (0.55-1.02) mg/dL Est Cr Clr Drug Dosing TNP Estimated GFR (MDRD) > 60 Glucose 489 H* (74-106) mg/dL Calcium 9.2 (8.5-10.1) mg/dL Corrected Calcium 9.20 (8.5-10.1) mg/dL Phosphorus 3.7 (2.6-4.7) mg/dL Magnesium 1.9 (1.8-2.4) mg/dL Total Bilirubin 0.7 (0.2-1.0) mg/dL AST 45 H (15-37) U/L ALT 52 (14-59) U/L Alkaline Phosphatase 131 H (46-116) U/L Troponin I < 0.017 (<=0.056) ng/mL C-Reactive Protein 1.0 H (<=0.9) mg/dL Total Protein 8.2 (6.4-8.2) g/dL Albumin 4.0 (3.4-5.0) g/dL Globulin 4.2 Albumin/Globulin Ratio 0.95 TSH, Ultra Sensitive 0.551 (0.358-3.74) uIU/mL POC Result Comm 04/25/18 04/25/18 Range/Units 09:57 10:07 WBC (4.0-10.0) x10^3/uL RBC (4.00-5.50) x10^6/uL Hgb (12.0-16.0) g/dL Hct (33.0-47.0) % MCV (78.0-93.0) fL MCH (26.0-32.0) pg MCHC (32.0-36.0) g/dL RDW Coeff of Roderick (10.0-15.0) % Plt Count (130-400) x10^3/uL Neut % (Auto) (50.0-80.0) % Lymph % (Auto) (25.0-50.0) % [place] % (Auto) (2.0-11.0) % Eos % (Auto) (0.0-4.0) % Baso % (Auto) (0.2-1.2) % PT (9.6-11.4) SEC INR (2.0-3.5) D-Dimer, Quantitative 0.28 (<=0.58) mg/LFEU POC ABG pH 7.258 L* (7.35-7.45) POC ABG pCO2 33 L (35-45) mmHG POC ABG pO2 96 (80-105) mmHG POC ABG HCO3 15 L (22-26) mmol/L POC ABG Total CO2 16 L (23-27) mmol/L POC ABG O2 Sat 96 (95-98) % POC ABG Base Excess -13 L (-2-3) mmol/L POC FiO2 0.21 Sodium (136-145) mmol/L Potassium (3.5-5.1) mmol/L Chloride (98-107) mmol/L Carbon Dioxide (21-32) mmol/L Anion Gap (10-20) mmol/L BUN (7-18) mg/dL Creatinine (0.55-1.02) mg/dL Est Cr Clr Drug Dosing Estimated GFR (MDRD) Glucose (74-106) mg/dL Calcium (8.5-10.1) mg/dL Corrected Calcium (8.5-10.1) mg/dL Phosphorus (2.6-4.7) mg/dL Magnesium (1.8-2.4) mg/dL Total Bilirubin (0.2-1.0) mg/dL AST (15-37) U/L ALT (14-59) U/L Alkaline Phosphatase (46-116) U/L Troponin I (<=0.056) ng/mL C-Reactive Protein (<=0.9) mg/dL Total Protein (6.4-8.2) g/dL Albumin (3.4-5.0) g/dL Globulin Albumin/Globulin Ratio TSH, Ultra Sensitive (0.358-3.74) uIU/mL POC Result Comm Called critical res Departure - Departure Time of Disposition: 11:30 Disposition: Home, Self-Care 01 Clinical Impression: Pain, chest wall - Discharge Information Instructions: Diabetic Ketoacidosis, Nonspecific Chest Pain, [id number] Referrals: Avila Aaron MD [Primary Care Provider] - Forms: ED Department Discharge Additional Instructions: You've been advised to be admitted for treatment of your diabetic complications. If you change your mind and wish to be admitted, feel free to return to the ER. Please discuss your blood sugar problems with your audio visual design engineer. Return to ER if worsening discomfort, shortness of breath, weakness, or lightheadedness. You will need to closely monitor your blood sugar and increase your insulin usage to get your blood sugar under control. - My Orders Last 24 Hours: My Active Orders 04/25/18 09:35 Chest 2V [CR] Stat - Assessment/Plan Last 24 Hours: My Active Orders 04/25/18 09:35 Chest 2V [CR] Stat Plan: You've been advised to be admitted for treatment of your diabetic complications. If you change your mind and wish to be admitted, feel free to return to the ER. Please discuss your blood sugar problems with your audio visual design engineer. Return to ER if worsening discomfort, shortness of breath, weakness, or lightheadedness. You will need to closely monitor your blood sugar and increase your insulin usage to get your blood sugar under control.
== END 2018-04-25 10:55 | disposition home or self-care (01) ==
LOC: VM.ED 09:26
DX: R07.89 Other chest pain (principal); E11.40 Type 2 diabetes mellitus with diabetic neuropathy, unspecified; Z79.4 Long term (current) use of insulin; I10 Essential (primary) hypertension; F17.210 Nicotine dependence, cigarettes, uncomplicated; Z79.899 Other long term (current) drug therapy
CPT/HCPCS: 36415; 71046; 80053; 82803; 83735; 84100; 84443; 84484; 85025; 85379; 85610; 86140; 99284

== ENCOUNTER 2018-04-25 17:11 | Inpatient (IN) | payer MEDICAID ==
[2018-04-25] MEDS ORDERED: Sodium Chloride 0.9% 10 ML Syringe FLUSH PRN (17:16)
[2018-04-25] MEDS ORDERED: Insulin Regular, Human 10 UNIT in Dextrose 10% in Water 500 ML IV ONE ×4 (17:18→17:29)
[2018-04-25] MEDS ORDERED: Ondansetron 4 MG/2 ML SDV IVPUSH ONE (17:20)
[2018-04-25] MEDS ORDERED: Morphine 4 MG/ML Syringe IVPUSH ONE (17:20)
[2018-04-25] MEDS ORDERED: Insulin Regular, Human 100 Units/ML 3 ML Vial IV ONE ×2 (17:29→23:25)
[2018-04-25] MEDS ORDERED: Lactated Ringers 1,000 ML IV SCH (17:30)
--- NOTE | 2018-04-25 17:58 | EDM.PDOC ---
ED HPI GENERAL MEDICAL PROBLEM - General Chief Complaint: General Stated Complaint: weakness, fatigue, myalgias Time Seen by Provider: 04/25/18 17:11 Source of Information: Reports: Patient History Limitations: Reports: No Limitations - History of Present Illness INITIAL COMMENTS - FREE TEXT/NARRATIVE: Pt. present back to ER with complaints of fatigue, generalized weakness, and body aches. She was seen in the ER this morning/early afternoon with complaints of resolving respirophasic chest discomfort that gradually resolved. She was found to be in DKA at that time with a blood sugar in the range of 500mg/dl and metabolic acidosis. She was unable to be persuaded to stay in the ER, and subsequently was discharged with an invitation to return if she changes her mind. She states that she was experiencing body aches and arthralgias and subsquently returned for admission. She complains of nausea but no vomiting. Denies any dysuria. No fever or chills. She currently is being treated for diabetic foot ulcers to the R foot and is currently on Keflex for this. She was seen in clinic today by Uriah Moore but his note is not in EPIC yet. Location: Reports: Generalized Quality: Reports: Ache Improves with: Reports: Rest Worsens with: Reports: Movement Associated Symptoms: Reports: Nausea/Vomiting - Related Data Allergies Allergy/AdvReac Type Severity Reaction Status Date / Time ibuprofen AdvReac Stomach Verified 04/25/18 17:55 Upset Home Meds: Home Meds Lurasidone HCl [Latuda] 120 mg PO DAILY 04/17/17 [History] atorvaSTATin [Lipitor] 10 mg PO BEDTIME 07/09/17 [History] Cyclobenzaprine HCl 5 mg PO BID 01/29/18 [History] Gabapentin [Neurontin] 600 mg PO TID 01/29/18 [History] Warfarin [Coumadin] 2.5 mg PO DAILY 01/29/18 [History] Omeprazole 20 mg PO DAILY 02/12/18 [History] amLODIPine Besylate [Norvasc] 10 mg PO DAILY 02/12/18 [History] hydrOXYzine pamoate [Vistaril] 50 mg PO Q6H PRN 02/12/18 [History] Acetaminophen 1,000 mg PO Q6H PRN 02/13/18 [History] Alum Hydrox/Mag Hydrox/Simeth [Maalox Advanced] 30 ml PO Q6H PRN 02/13/18 [ History] Dextrose [Glucose] 16 gm PO ASDIRECTED PRN 02/13/18 [History] fentaNYL [Fentanyl] 25 mcg TD Q72H 02/13/18 [History] Sertraline [Zoloft] 200 mg PO DAILY tablet 02/16/18 [Rx] hydrOXYzine HCl [hydrOXYzine] 50 mg PO Q6H PRN tablet 02/16/18 [Rx] Insulin Glarg,Human.Rec.Analog [Lantus] 35 unit SUBCUT BEDTIME 03/06/18 [History ] Insulin Lispro [Humalog] 5 unit SQ TIDMEALS 03/06/18 [History] rOPINIRole HCl [Requip] 0.25 mg PO BEDTIME 03/06/18 [History] Buprenorphine HCl/Naloxone HCl [Zubsolv 5.7-1.4 mg Tablet Sl] 1 tab PO ASDIRECTED 04/25/18 [History] Ondansetron HCl [Zofran] 4 mg PO Q4H PRN 04/25/18 [History] Past Medical History HEENT History: Reports: Impaired Vision Cardiovascular History: Reports: Blood Clots/VTE/DVT, Hypertension Respiratory History: Reports: Other (See Below) Other Respiratory History: hx of acute respiratory failure Gastrointestinal History: Reports: Irritable Bowel Syndrome, PUD Other Gastrointestinal History: acid reflux Genitourinary History: Reports: Urinary Incontinence, Other (See Below) Other Genitourinary History: hx of UTI, hx of acute kidney injury Musculoskeletal History: Reports: Other (See Below) Other Musculoskeletal History: right foot drop Neurological History: Reports: Neuropathy, Diabetic Psychiatric History: Reports: Anxiety, Bipolar, PTSD, Other (See Below) Other Psychiatric History: chronic narcotic use Endocrine/Metabolic History: Reports: Diabetes, Type II, Other (See Below) Other Endocrine/Metabolic History: 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, hx of ketoacidosis Hematologic History: Reports: Other (See Below) - Past Surgical History GI Surgical History: Reports: Cholecystectomy, Other (See Below) Other GI Surgeries/Procedures: Esophagus/ stomach repair Musculoskeletal Surgical History: Reports: Hip Replacement, Other (See Below) Other Musculoskeletal Surgeries/Procedures:: hx of carpal tunnel repair Social & Family History - Family History Family Medical History: Noncontributory - Caffeine Use Caffeine Use: Reports: Coffee ED ROS GENERAL - Review of Systems Review Of Systems: See Below Constitutional: Reports: Malaise, Weakness, Fatigue. Denies: Fever, Chills, Diaphoresis HEENT: Reports: No Symptoms Respiratory: Reports: Pleuritic Chest Pain. Denies: Shortness of Breath Cardiovascular: Reports: No Symptoms Endocrine: Reports: No Symptoms GI/Abdominal: Reports: Abdominal Pain (diffuse abdominal discomfort), Nausea. Denies: Diarrhea, Hematemesis, Hematochezia, Vomiting : Reports: No Symptoms Musculoskeletal: Reports: Muscle Stiffness Skin: Reports: Pallor Neurological: Reports: No Symptoms Psychiatric: Reports: No Symptoms Hematologic/Lymphatic: Reports: No Symptoms Immunologic: Reports: No Symptoms ED EXAM, GENERAL - Physical Exam Exam: See Below Exam Limited By: No Limitations General Appearance: Alert, WD/WN, No Apparent Distress Nose: Normal Inspection, Normal Mucosa, No Blood Throat/Mouth: Normal Inspection, Other (upper denture.) Neck: Normal Inspection, Supple, Non-Tender, Full Range of Motion Respiratory/Chest: No Respiratory Distress, Lungs Clear, Normal Breath Sounds, No Accessory Muscle Use, Chest Non-Tender Cardiovascular: Normal Peripheral Pulses, Regular Rate, Rhythm, No Edema, No Gallop, No JVD, No Murmur, No Rub Peripheral Pulses: 3+: Radial (L) GI/Abdominal: Normal Bowel Sounds, Soft, Non-Tender, No Organomegaly, No Distention, No Abnormal Bruit, No Mass (Female) Exam: Deferred Rectal (Female) Exam: Deferred Back Exam: Normal Inspection, Decreased Range of Motion. No: CVA Tenderness (L) , CVA Tenderness (R) Extremities: Other (pressure ulcer to plantar and dorsal R foot. Approx. 1.5 cm areas or eschar to both ulcers. ) Neurological: Alert, Oriented, CN II-XII Intact, Normal Cognition, Slow to Respond Psychiatric: Flat Affect, Tearful Skin Exam: Warm, Dry, Intact, Normal Color, No Rash Lymphatic: No Adenopathy Course - Orders/Labs/Meds Orders: Active Orders 24 hr Category Date Time Status Patient Status [ADT] Routine ADT 04/25/18 17:38 Ordered Accu Check [Blood Glucose Check, Bedside] [RC] ONETIME Care 04/25/18 17:16 Active HCG URINE, POC [POC] Stat Lab 04/25/18 17:23 Ordered UA W/MICROSCOPIC [URIN] Stat Lab 04/25/18 17:23 Ordered Lactated Ringers [Ringers, Lactated] 1,000 ml Med 04/25/18 17:30 Ordered IV ASDIRECTED Sodium Chloride 0.9% [Saline Flush] Med 04/25/18 17:16 Active 10 ml FLUSH ASDIRECTED PRN Peripheral IV Insertion Adult [OM.PC] Routine Oth 04/25/18 17:16 Ordered Medication Orders Lactated Ringer's (Ringers, Lactated) 1,000 mls @ 1,000 mls/hr IV ASDIRECTED VIVIANA Last Admin: 04/25/18 17:41 Dose: 1,000 mls/hr Sodium Chloride (Saline Flush) 10 ml FLUSH ASDIRECTED PRN PRN Reason: Keep Vein Open Labs: Laboratory Tests 04/25/18 Range/Units 17:19 POC Glucose 474 H* (74-106) mg/dL Meds: Medications Generic Name Dose Route Start Last Admin Trade Name Jana PRN Reason Stop Dose Admin Lactated Ringer's 1,000 mls @ 1,000 mls/hr 04/25/18 17:30 04/25/18 17:41 Ringers, Lactated IV 1,000 mls/hr ASDIRECTED VIVIANA Administration Sodium Chloride 10 ml 04/25/18 17:16 Saline Flush FLUSH ASDIRECTED PRN Keep Vein Open Discontinued Medications Generic Name Dose Route Start Last Admin Trade Name Jana PRN Reason Stop Dose Admin Insulin Human Regular 10 unit/ 500.1 mls @ 500 mls/hr 04/25/18 17:18 17:47 Dextrose/Water IV 04/25/18 18:18 Not Given ONETIME ONE Insulin Human Regular 10 unit/ 500.1 mls @ 500 mls/hr 04/25/18 17:29 17:47 Dextrose/Water IV 04/25/18 18:29 Not Given ONETIME ONE Dextrose/Water Confirm 04/25/18 17:30 04/25/18 17:47 Dextrose 10% In Water Administered 04/25/18 17:31 Not Given Dose 500 mls @ as directed .ROUTE .STK-MED ONE Insulin Human Regular 10 unit 04/25/18 17:29 04/25/18 17:44 Humulin R IV 04/25/18 17:30 10 units ONETIME ONE Administration Morphine Sulfate 4 mg 04/25/18 17:20 04/25/18 17:46 Morphine IVPUSH 04/25/18 17:21 4 mg ONETIME ONE Administration Ondansetron HCl 4 mg 04/25/18 17:20 Zofran IVPUSH 04/25/18 17:21 ONETIME ONE - Re-Assessments/Exams Free Text/Narrative Re-Assessment/Exam: 04/25/18 18:06 Pt. was started on LR 1 liter IV and given 10u regular insulin IV. Labs were not repeated in admission, as they had been done this afternoon. She will need repeat CMP and ABG within the next 1-2 hours to assess pH and potassium, as she is receiving IV insulin. UA and urine HCG was ordered and are pending. She was given zofran 4mg IV and morphine 4mg IV. Departure - Departure Time of Disposition: 16:12 Disposition: Admitted As Inpatient 68 Clinical Impression: DKA (diabetic ketoacidoses), Ketoacidosis in diabetes mellitus, Dehydration - Discharge Information Forms: ED Department Discharge - Problem List Review Problem List Initiated/Reviewed/Updated: Yes - My Orders Last 24 Hours: My Active Orders 04/25/18 17:16 Accu Check [Blood Glucose Check, Bedside] [RC] ONETIME Sodium Chloride 0.9% [Saline Flush] 10 ml FLUSH ASDIRECTED PRN Peripheral IV Insertion Adult [OM.PC] Routine 04/25/18 17:23 HCG URINE, POC [POC] Stat UA W/MICROSCOPIC [URIN] Stat 04/25/18 17:30 Lactated Ringers [Ringers, Lactated] 1,000 ml IV ASDIRECTED 04/25/18 17:38 Patient Status [ADT] Routine - Assessment/Plan Last 24 Hours: My Active Orders 04/25/18 17:16 Accu Check [Blood Glucose Check, Bedside] [RC] ONETIME Sodium Chloride 0.9% [Saline Flush] 10 ml FLUSH ASDIRECTED PRN Peripheral IV Insertion Adult [OM.PC] Routine 04/25/18 17:23 HCG URINE, POC [POC] Stat UA W/MICROSCOPIC [URIN] Stat 04/25/18 17:30 Lactated Ringers [Ringers, Lactated] 1,000 ml IV ASDIRECTED 04/25/18 17:38 Patient Status [ADT] Routine Plan: Admit acute. Dr. Singh for Dr. Aaron. She is a code 1. Dr. Singh will put in orders on admitted. No potassium repletion was started at this point, as her potassium was normal. She will likely need some potassium after her labs are checked within 1-2 hours. She was given 1 liter of LR.
[2018-04-25] MEDS: NS + KCl 20mEq/L 1,000 ML IV SCH (19:42)
[2018-04-25] MEDS ORDERED: Acetaminophen 500 MG Tab PO PRN (20:15)
[2018-04-25] MEDS: Enoxaparin 80 MG/0.8 ML Syringe SUBCUT SCH (20:59)
[2018-04-25 21:36] LABS: CHLORIDE,CL 98 mmol/L (98-107); SODIUM,NA 133 mmol/L (136-145)
[2018-04-25 21:37] LABS: ANION GAP 22.6 mmol/L (10-20)
[2018-04-25] MEDS ORDERED: Morphine 2 MG/ML Syringe IV PRN (21:49)
[2018-04-25] MEDS ORDERED: Ondansetron 4 MG Tab.DIS PO PRN (21:56)
[2018-04-25] MEDS ORDERED: Morphine 2 MG/ML Syringe ONE (22:06)
[2018-04-25] MEDS ORDERED: Warfarin 5 MG Tab PO ONE (22:30)
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
[2018-04-25] MEDS: Ondansetron 4 MG/2 ML SDV IVPUSH PRN (22:40)
[2018-04-25] MEDS: Insulin Glargine,Human Rec. Analog 100 Units/ML 3 ML Pen SUBCUT SCH (22:53)
[2018-04-26] MEDS ORDERED: Insulin Regular, Human 100 Units/ML 3 ML Vial IV ONE (00:50)
[2018-04-26] MEDS: Gabapentin 300 MG Cap PO SCH ×3 (01:57→19:31)
[2018-04-26] MEDS: Cephalexin 500 MG Cap PO SCH ×4 (01:57→21:07)
[2018-04-26] MEDS: atorvaSTATin 10 MG Tab PO SCH ×2 (01:58→19:32)
[2018-04-26] MEDS: NS + KCl 20mEq/L 1,000 ML IV SCH (03:34)
[2018-04-26 07:20] LABS: CHLORIDE,CL 106 mmol/L (98-107); SODIUM,NA 140 mmol/L (136-145)
[2018-04-26 07:22] LABS: ANION GAP 23.7 mmol/L (10-20)
[2018-04-26] MEDS: Omeprazole 20 MG Cap.CR PO SCH (07:48)
[2018-04-26] MEDS: Insulin Lispro 100 Unit/ML 3 ML KwikPen SUBCUT SCH ×3 (09:21→18:25)
[2018-04-26] MEDS ORDERED: Sodium Chloride 0.45% with KCl 1,000 ML IV SCH (09:30)
[2018-04-26] MEDS: D5 1/2 NS w/ 20 mEq/L KCl 1,000 ML IV SCH ×2 (09:55→18:14)
[2018-04-26 11:30] LABS: O2 SATURATION VENOUS 76 %; PCO2 VENOUS 31 mmHG (41-51); PO2 VENOUS 50 mmHG
[2018-04-26 11:31] LABS: CHLORIDE,CL 106 mmol/L (98-107); SODIUM,NA 140 mmol/L (136-145)
[2018-04-26 11:31] LABS: BASE EXCESS VENOUS -17 mmol/L ((-2)-3); BICARBONATE,VENOUS 12 mmol/L (23-28)
[2018-04-26 11:32] LABS: PH,VENOUS 7.19 (7.31-7.41)
[2018-04-26 11:41] LABS: ANION GAP 23.3 mmol/L (10-20)
--- NOTE | 2018-04-26 13:18 | PCM.PN ---
- General Info Date of Service: 04/26/18 Admission Dx/Problem (Free Text): Patient is in for DKA. Came back to the ER and then was admitted. She was having some epigastric discomfort associated with nausea maybe felt a bit warm and chilled without opal fever. No diarrhea or dysuria. No dyspnea. History of past cholecystectomy. No sign of any acute abdominal process. Last A1c 7.2 couple months ago. She states sugars generally run 200 100s at home but admitted getting higher the past couple days along with her above abdominal symptoms. She denies missing any insulin. Things are otherwise going well she has her children back at home she is working again. Nursing notes she continues to be somewhat lethargic but now has woken up and she states she's feeling a lot better and stronger. She was started on Insulin drip plus normal saline bolus. VSS stable, slightly sweaty, heart and lungs clear other than chronic tachyhcardia Abd soft and non tender Has echar to heel and doral foot but not grossly infected Her labs show continued acidosis, her chloride is gone up. Her delta gap is otherwise normal. Potassium sodium in normal range, glucose is come down below 200. She has mild to moderate DKA which appears to be resolving improving with insulin, will stop her drip and switched to her home regimen. Frequent Accu- Cheks. Now that sugars are below 200 we'll switch her fluids to D5 half normal saline. 20 kcl meq/L, monitor potassium levels. Remains acidotic, suspect from excess chloride, switch to 1/2NS and recheck No other acute processes identified, lactate, UA, CRP, CXR all normal Probalby need to follow with podiatry for chronic foot ulcers - Patient Data Vitals - Most Recent: Last Vital Signs Temp 36.6 C 04/26/18 10:52 Pulse 109 H 04/26/18 10:52 Resp 22 H 04/26/18 10:52 BP 113/90 04/26/18 10:52 Pulse Ox 100 04/26/18 10:52 Weight - Most Recent: 77 kg I&O - Last 24 Hours: Intake & Output 04/25/18 04/26/18 04/26/18 22:59 06:59 14:59 Intake Total 1049 463 Output Total 400 1000 1200 Balance -400 49 -737 Lab Results Last 24 Hours: Laboratory Results - last 24 hr 04/25/18 04/25/18 04/25/18 Range/Units 17:19 17:28 18:28 WBC (4.0-10.0) x10^3/uL RBC (4.00-5.50) x10^6/uL Hgb (12.0-16.0) g/dL Hct (33.0-47.0) % MCV (78.0-93.0) fL MCH (26.0-32.0) pg MCHC (32.0-36.0) g/dL RDW Coeff of Roderick (10.0-15.0) % Plt Count (130-400) x10^3/uL POC ABG pH (7.35-7.45) POC ABG pCO2 (35-45) mmHG POC ABG pO2 (80-105) mmHG POC ABG HCO3 (22-26) mmol/L POC ABG Total CO2 (23-27) mmol/L POC ABG O2 Sat (95-98) % POC ABG Base Excess (-2-3) mmol/L VBG pH (7.31-7.41) VBG pCO2 (41-51) mmHG VBG pO2 mmHG VBG HCO3 (23-28) mmol/L VBG Total CO2 (24-29) mmol/L VBG O2 Saturation % VBG Base Excess ((-2)-3) mmol/L FiO2 POC FiO2 Sodium (136-145) mmol/L Potassium (3.5-5.1) mmol/L Chloride (98-107) mmol/L Carbon Dioxide (21-32) mmol/L Anion Gap (10-20) mmol/L BUN (7-18) mg/dL Creatinine (0.55-1.02) mg/dL Est Cr Clr Drug Dosing mL/min Estimated GFR (MDRD) Glucose (74-106) mg/dL POC Glucose 474 H* (74-106) mg/dL Lactic Acid (0.4-2.0) mmol/L Calcium (8.5-10.1) mg/dL Corrected Calcium (8.5-10.1) mg/dL Total Bilirubin (0.2-1.0) mg/dL AST (15-37) U/L ALT (14-59) U/L Alkaline Phosphatase (46-116) U/L Creatine Kinase (26-192) U/L C-Reactive Protein (<=0.9) mg/dL Total Protein (6.4-8.2) g/dL Albumin (3.4-5.0) g/dL Globulin Albumin/Globulin Ratio Amylase (25-115) U/L Lipase (73-393) U/L Urine Color Yellow (YELLOW) Urine Appearance Clear (CLEAR) Urine pH 5.5 (5.0-8.0) Ur Specific [place] 1.020 Urine Protein Negative (NEGATIVE) mg/dL Urine Glucose (UA) 500 H (NEGATIVE) mg/dL Urine Ketones 80 H (NEGATIVE) mg/dL Urine Occult Blood Negative (NEGATIVE) Urine Nitrite Negative (NEGATIVE) Urine Bilirubin Small H (NEGATIVE) Urine Urobilinogen 0.2 (0.2) EU/dL Ur Leukocyte Esterase Negative (NEGATIVE) Urine RBC Not seen (NOT SEEN) /HPF Urine WBC Not seen (NOT SEEN) /HPF Ur Squamous Epith Cells Rare (NEGATIVE) /HPF Urine Bacteria Rare (NEGATIVE) /HPF Urine Mucus Rare H (NEGATIVE) /LPF POC Urine HCG, Qual (NEGATIVE) Urine Opiates Screen Positive H (NEGATIVE) Ur Buprenorphine Scrn Positive H (NEGATIVE) Ur Oxycodone Screen Negative (NEGATIVE) Urine Methadone Screen Negative (NEGATIVE) Ur Barbiturates Screen Negative (NEGATIVE) Ur Tricyclics Screen Negative (NEGATIVE) Ur Amphetamine Screen Negative (NEGATIVE) U Methamphetamines Scrn Negative (NEGATIVE) Urine MDMA Screen Negative (NEGATIVE) U Benzodiazepines Scrn Negative (NEGATIVE) U Cocaine Metab Screen Negative (NEGATIVE) U Marijuana (THC) Screen Negative (NEGATIVE) 04/25/18 04/25/18 04/25/18 Range/Units 18:28 19:52 21:08 WBC (4.0-10.0) x10^3/uL RBC (4.00-5.50) x10^6/uL Hgb (12.0-16.0) g/dL Hct (33.0-47.0) % MCV (78.0-93.0) fL MCH (26.0-32.0) pg MCHC (32.0-36.0) g/dL RDW Coeff of Roderick (10.0-15.0) % Plt Count (130-400) x10^3/uL POC ABG pH (7.35-7.45) POC ABG pCO2 (35-45) mmHG POC ABG pO2 (80-105) mmHG POC ABG HCO3 (22-26) mmol/L POC ABG Total CO2 (23-27) mmol/L POC ABG O2 Sat (95-98) % POC ABG Base Excess (-2-3) mmol/L VBG pH (7.31-7.41) VBG pCO2 (41-51) mmHG VBG pO2 mmHG VBG HCO3 (23-28) mmol/L VBG Total CO2 (24-29) mmol/L VBG O2 Saturation % VBG Base Excess ((-2)-3) mmol/L FiO2 POC FiO2 Sodium 133 L (136-145) mmol/L Potassium 4.6 (3.5-5.1) mmol/L Chloride 98 (98-107) mmol/L Carbon Dioxide 17 L (21-32) mmol/L Anion Gap 22.6 H (10-20) mmol/L BUN 12 (7-18) mg/dL Creatinine 0.8 (0.55-1.02) mg/dL Est Cr Clr Drug Dosing 102.58 mL/min Estimated GFR (MDRD) > 60 Glucose 366 H (74-106) mg/dL POC Glucose 314 H (74-106) mg/dL Lactic Acid (0.4-2.0) mmol/L Calcium 8.8 (8.5-10.1) mg/dL Corrected Calcium (8.5-10.1) mg/dL Total Bilirubin (0.2-1.0) mg/dL AST (15-37) U/L ALT (14-59) U/L Alkaline Phosphatase (46-116) U/L Creatine Kinase (26-192) U/L C-Reactive Protein (<=0.9) mg/dL Total Protein (6.4-8.2) g/dL Albumin (3.4-5.0) g/dL Globulin Albumin/Globulin Ratio Amylase (25-115) U/L Lipase (73-393) U/L Urine Color (YELLOW) Urine Appearance (CLEAR) Urine pH (5.0-8.0) Ur Specific [place] Urine Protein (NEGATIVE) mg/dL Urine Glucose (UA) (NEGATIVE) mg/dL Urine Ketones (NEGATIVE) mg/dL Urine Occult Blood (NEGATIVE) Urine Nitrite (NEGATIVE) Urine Bilirubin (NEGATIVE) Urine Urobilinogen (0.2) EU/dL Ur Leukocyte Esterase (NEGATIVE) Urine RBC (NOT SEEN) /HPF Urine WBC (NOT SEEN) /HPF Ur Squamous Epith Cells (NEGATIVE) /HPF Urine Bacteria (NEGATIVE) /HPF Urine Mucus (NEGATIVE) /LPF POC Urine HCG, Qual Negative (NEGATIVE) Urine Opiates Screen (NEGATIVE) Ur Buprenorphine Scrn (NEGATIVE) Ur Oxycodone Screen (NEGATIVE) Urine Methadone Screen (NEGATIVE) Ur Barbiturates Screen (NEGATIVE) Ur Tricyclics Screen (NEGATIVE) Ur Amphetamine Screen (NEGATIVE) U Methamphetamines Scrn (NEGATIVE) Urine MDMA Screen (NEGATIVE) U Benzodiazepines Scrn (NEGATIVE) U Cocaine Metab Screen (NEGATIVE) U Marijuana (THC) Screen (NEGATIVE) 04/25/18 04/25/18 04/25/18 Range/Units 21:08 21:25 22:48 WBC (4.0-10.0) x10^3/uL RBC (4.00-5.50) x10^6/uL Hgb (12.0-16.0) g/dL Hct (33.0-47.0) % MCV (78.0-93.0) fL MCH (26.0-32.0) pg MCHC (32.0-36.0) g/dL RDW Coeff of Roderick (10.0-15.0) % Plt Count (130-400) x10^3/uL POC ABG pH 7.335 L (7.35-7.45) POC ABG pCO2 31 L (35-45) mmHG POC ABG pO2 98 (80-105) mmHG POC ABG HCO3 16 L (22-26) mmol/L POC ABG Total CO2 17 L (23-27) mmol/L POC ABG O2 Sat 97 (95-98) % POC ABG Base Excess -9 L (-2-3) mmol/L VBG pH (7.31-7.41) VBG pCO2 (41-51) mmHG VBG pO2 mmHG VBG HCO3 (23-28) mmol/L VBG Total CO2 (24-29) mmol/L VBG O2 Saturation % VBG Base Excess ((-2)-3) mmol/L FiO2 POC FiO2 0.21 Sodium (136-145) mmol/L Potassium (3.5-5.1) mmol/L Chloride (98-107) mmol/L Carbon Dioxide (21-32) mmol/L Anion Gap (10-20) mmol/L BUN (7-18) mg/dL Creatinine (0.55-1.02) mg/dL Est Cr Clr Drug Dosing mL/min Estimated GFR (MDRD) Glucose (74-106) mg/dL POC Glucose 350 H 461 H* (74-106) mg/dL Lactic Acid (0.4-2.0) mmol/L Calcium (8.5-10.1) mg/dL Corrected Calcium (8.5-10.1) mg/dL Total Bilirubin (0.2-1.0) mg/dL AST (15-37) U/L ALT (14-59) U/L Alkaline Phosphatase (46-116) U/L Creatine Kinase (26-192) U/L C-Reactive Protein (<=0.9) mg/dL Total Protein (6.4-8.2) g/dL Albumin (3.4-5.0) g/dL Globulin Albumin/Globulin Ratio Amylase (25-115) U/L Lipase (73-393) U/L Urine Color (YELLOW) Urine Appearance (CLEAR) Urine pH (5.0-8.0) Ur Specific [place] Urine Protein (NEGATIVE) mg/dL Urine Glucose (UA) (NEGATIVE) mg/dL Urine Ketones (NEGATIVE) mg/dL Urine Occult Blood (NEGATIVE) Urine Nitrite (NEGATIVE) Urine Bilirubin (NEGATIVE) Urine Urobilinogen (0.2) EU/dL Ur Leukocyte Esterase (NEGATIVE) Urine RBC (NOT SEEN) /HPF Urine WBC (NOT SEEN) /HPF Ur Squamous Epith Cells (NEGATIVE) /HPF Urine Bacteria (NEGATIVE) /HPF Urine Mucus (NEGATIVE) /LPF POC Urine HCG, Qual (NEGATIVE) Urine Opiates Screen (NEGATIVE) Ur Buprenorphine Scrn (NEGATIVE) Ur Oxycodone Screen (NEGATIVE) Urine Methadone Screen (NEGATIVE) Ur Barbiturates Screen (NEGATIVE) Ur Tricyclics Screen (NEGATIVE) Ur Amphetamine Screen (NEGATIVE) U Methamphetamines Scrn (NEGATIVE) Urine MDMA Screen (NEGATIVE) U Benzodiazepines Scrn (NEGATIVE) U Cocaine Metab Screen (NEGATIVE) U Marijuana (THC) Screen (NEGATIVE) 04/26/18 04/26/18 04/26/18 Range/Units 00:09 01:11 02:09 WBC (4.0-10.0) x10^3/uL RBC (4.00-5.50) x10^6/uL Hgb (12.0-16.0) g/dL Hct (33.0-47.0) % MCV (78.0-93.0) fL MCH (26.0-32.0) pg MCHC (32.0-36.0) g/dL RDW Coeff of Roderick (10.0-15.0) % Plt Count (130-400) x10^3/uL POC ABG pH (7.35-7.45) POC ABG pCO2 (35-45) mmHG POC ABG pO2 (80-105) mmHG POC ABG HCO3 (22-26) mmol/L POC ABG Total CO2 (23-27) mmol/L POC ABG O2 Sat (95-98) % POC ABG Base Excess (-2-3) mmol/L VBG pH (7.31-7.41) VBG pCO2 (41-51) mmHG VBG pO2 mmHG VBG HCO3 (23-28) mmol/L VBG Total CO2 (24-29) mmol/L VBG O2 Saturation % VBG Base Excess ((-2)-3) mmol/L FiO2 POC FiO2 Sodium (136-145) mmol/L Potassium (3.5-5.1) mmol/L Chloride (98-107) mmol/L Carbon Dioxide (21-32) mmol/L Anion Gap (10-20) mmol/L BUN (7-18) mg/dL Creatinine (0.55-1.02) mg/dL Est Cr Clr Drug Dosing mL/min Estimated GFR (MDRD) Glucose (74-106) mg/dL POC Glucose 496 H* 419 H* 369 H (74-106) mg/dL Lactic Acid (0.4-2.0) mmol/L Calcium (8.5-10.1) mg/dL Corrected Calcium (8.5-10.1) mg/dL Total Bilirubin (0.2-1.0) mg/dL AST (15-37) U/L ALT (14-59) U/L Alkaline Phosphatase (46-116) U/L Creatine Kinase (26-192) U/L C-Reactive Protein (<=0.9) mg/dL Total Protein (6.4-8.2) g/dL Albumin (3.4-5.0) g/dL Globulin Albumin/Globulin Ratio Amylase (25-115) U/L Lipase (73-393) U/L Urine Color (YELLOW) Urine Appearance (CLEAR) Urine pH (5.0-8.0) Ur Specific [place] Urine Protein (NEGATIVE) mg/dL Urine Glucose (UA) (NEGATIVE) mg/dL Urine Ketones (NEGATIVE) mg/dL Urine Occult Blood (NEGATIVE) Urine Nitrite (NEGATIVE) Urine Bilirubin (NEGATIVE) Urine Urobilinogen (0.2) EU/dL Ur Leukocyte Esterase (NEGATIVE) Urine RBC (NOT SEEN) /HPF Urine WBC (NOT SEEN) /HPF Ur Squamous Epith Cells (NEGATIVE) /HPF Urine Bacteria (NEGATIVE) /HPF Urine Mucus (NEGATIVE) /LPF POC Urine HCG, Qual (NEGATIVE) Urine Opiates Screen (NEGATIVE) Ur Buprenorphine Scrn (NEGATIVE) Ur Oxycodone Screen (NEGATIVE) Urine Methadone Screen (NEGATIVE) Ur Barbiturates Screen (NEGATIVE) Ur Tricyclics Screen (NEGATIVE) Ur Amphetamine Screen (NEGATIVE) U Methamphetamines Scrn (NEGATIVE) Urine MDMA Screen (NEGATIVE) U Benzodiazepines Scrn (NEGATIVE) U Cocaine Metab Screen (NEGATIVE) U Marijuana (THC) Screen (NEGATIVE) 04/26/18 04/26/18 04/26/18 Range/Units 03:05 03:28 04:03 WBC (4.0-10.0) x10^3/uL RBC (4.00-5.50) x10^6/uL Hgb (12.0-16.0) g/dL Hct (33.0-47.0) % MCV (78.0-93.0) fL MCH (26.0-32.0) pg MCHC (32.0-36.0) g/dL RDW Coeff of Roderick (10.0-15.0) % Plt Count (130-400) x10^3/uL POC ABG pH (7.35-7.45) POC ABG pCO2 (35-45) mmHG POC ABG pO2 (80-105) mmHG POC ABG HCO3 (22-26) mmol/L POC ABG Total CO2 (23-27) mmol/L POC ABG O2 Sat (95-98) % POC ABG Base Excess (-2-3) mmol/L VBG pH (7.31-7.41) VBG pCO2 (41-51) mmHG VBG pO2 mmHG VBG HCO3 (23-28) mmol/L VBG Total CO2 (24-29) mmol/L VBG O2 Saturation % VBG Base Excess ((-2)-3) mmol/L FiO2 POC FiO2 Sodium (136-145) mmol/L Potassium (3.5-5.1) mmol/L Chloride (98-107) mmol/L Carbon Dioxide (21-32) mmol/L Anion Gap (10-20) mmol/L BUN (7-18) mg/dL Creatinine (0.55-1.02) mg/dL Est Cr Clr Drug Dosing mL/min Estimated GFR (MDRD) Glucose (74-106) mg/dL POC Glucose 263 H 258 H 219 H (74-106) mg/dL Lactic Acid (0.4-2.0) mmol/L Calcium (8.5-10.1) mg/dL Corrected Calcium (8.5-10.1) mg/dL Total Bilirubin (0.2-1.0) mg/dL AST (15-37) U/L ALT (14-59) U/L Alkaline Phosphatase (46-116) U/L Creatine Kinase (26-192) U/L C-Reactive Protein (<=0.9) mg/dL Total Protein (6.4-8.2) g/dL Albumin (3.4-5.0) g/dL Globulin Albumin/Globulin Ratio Amylase (25-115) U/L Lipase (73-393) U/L Urine Color (YELLOW) Urine Appearance (CLEAR) Urine pH (5.0-8.0) Ur Specific [place] Urine Protein (NEGATIVE) mg/dL Urine Glucose (UA) (NEGATIVE) mg/dL Urine Ketones (NEGATIVE) mg/dL Urine Occult Blood (NEGATIVE) Urine Nitrite (NEGATIVE) Urine Bilirubin (NEGATIVE) Urine Urobilinogen (0.2) EU/dL Ur Leukocyte Esterase (NEGATIVE) Urine RBC (NOT SEEN) /HPF Urine WBC (NOT SEEN) /HPF Ur Squamous Epith Cells (NEGATIVE) /HPF Urine Bacteria (NEGATIVE) /HPF Urine Mucus (NEGATIVE) /LPF POC Urine HCG, Qual (NEGATIVE) Urine Opiates Screen (NEGATIVE) Ur Buprenorphine Scrn (NEGATIVE) Ur Oxycodone Screen (NEGATIVE) Urine Methadone Screen (NEGATIVE) Ur Barbiturates Screen (NEGATIVE) Ur Tricyclics Screen (NEGATIVE) Ur Amphetamine Screen (NEGATIVE) U Methamphetamines Scrn (NEGATIVE) Urine MDMA Screen (NEGATIVE) U Benzodiazepines Scrn (NEGATIVE) U Cocaine Metab Screen (NEGATIVE) U Marijuana (THC) Screen (NEGATIVE) 04/26/18 04/26/18 04/26/18 Range/Units 05:07 06:07 06:42 WBC 16.1 H (4.0-10.0) x10^3/uL RBC 4.83 (4.00-5.50) x10^6/uL Hgb 14.1 (12.0-16.0) g/dL Hct 38.1 (33.0-47.0) % MCV 78.9 (78.0-93.0) fL MCH 29.2 (26.0-32.0) pg MCHC 37.0 H (32.0-36.0) g/dL RDW Coeff of Roderick 13.7 (10.0-15.0) % Plt Count 447 H (130-400) x10^3/uL POC ABG pH (7.35-7.45) POC ABG pCO2 (35-45) mmHG POC ABG pO2 (80-105) mmHG POC ABG HCO3 (22-26) mmol/L POC ABG Total CO2 (23-27) mmol/L POC ABG O2 Sat (95-98) % POC ABG Base Excess (-2-3) mmol/L VBG pH (7.31-7.41) VBG pCO2 (41-51) mmHG VBG pO2 mmHG VBG HCO3 (23-28) mmol/L VBG Total CO2 (24-29) mmol/L VBG O2 Saturation % VBG Base Excess ((-2)-3) mmol/L FiO2 POC FiO2 Sodium (136-145) mmol/L Potassium (3.5-5.1) mmol/L Chloride (98-107) mmol/L Carbon Dioxide (21-32) mmol/L Anion Gap (10-20) mmol/L BUN (7-18) mg/dL Creatinine (0.55-1.02) mg/dL Est Cr Clr Drug Dosing mL/min Estimated GFR (MDRD) Glucose (74-106) mg/dL POC Glucose 189 H 170 H (74-106) mg/dL Lactic Acid (0.4-2.0) mmol/L Calcium (8.5-10.1) mg/dL Corrected Calcium (8.5-10.1) mg/dL Total Bilirubin (0.2-1.0) mg/dL AST (15-37) U/L ALT (14-59) U/L Alkaline Phosphatase (46-116) U/L Creatine Kinase (26-192) U/L C-Reactive Protein (<=0.9) mg/dL Total Protein (6.4-8.2) g/dL Albumin (3.4-5.0) g/dL Globulin Albumin/Globulin Ratio Amylase (25-115) U/L Lipase (73-393) U/L Urine Color (YELLOW) Urine Appearance (CLEAR) Urine pH (5.0-8.0) Ur Specific [place] Urine Protein (NEGATIVE) mg/dL Urine Glucose (UA) (NEGATIVE) mg/dL Urine Ketones (NEGATIVE) mg/dL Urine Occult Blood (NEGATIVE) Urine Nitrite (NEGATIVE) Urine Bilirubin (NEGATIVE) Urine Urobilinogen (0.2) EU/dL Ur Leukocyte Esterase (NEGATIVE) Urine RBC (NOT SEEN) /HPF Urine WBC (NOT SEEN) /HPF Ur Squamous Epith Cells (NEGATIVE) /HPF Urine Bacteria (NEGATIVE) /HPF Urine Mucus (NEGATIVE) /LPF POC Urine HCG, Qual (NEGATIVE) Urine Opiates Screen (NEGATIVE) Ur Buprenorphine Scrn (NEGATIVE) Ur Oxycodone Screen (NEGATIVE) Urine Methadone Screen (NEGATIVE) Ur Barbiturates Screen (NEGATIVE) Ur Tricyclics Screen (NEGATIVE) Ur Amphetamine Screen (NEGATIVE) U Methamphetamines Scrn (NEGATIVE) Urine MDMA Screen (NEGATIVE) U Benzodiazepines Scrn (NEGATIVE) U Cocaine Metab Screen (NEGATIVE) U Marijuana (THC) Screen (NEGATIVE) 04/26/18 04/26/18 04/26/18 Range/Units 06:42 09:20 10:30 WBC (4.0-10.0) x10^3/uL RBC (4.00-5.50) x10^6/uL Hgb (12.0-16.0) g/dL Hct (33.0-47.0) % MCV (78.0-93.0) fL MCH (26.0-32.0) pg MCHC (32.0-36.0) g/dL RDW Coeff of Roderick (10.0-15.0) % Plt Count (130-400) x10^3/uL POC ABG pH (7.35-7.45) POC ABG pCO2 (35-45) mmHG POC ABG pO2 (80-105) mmHG POC ABG HCO3 (22-26) mmol/L POC ABG Total CO2 (23-27) mmol/L POC ABG O2 Sat (95-98) % POC ABG Base Excess (-2-3) mmol/L VBG pH 7.19 L* (7.31-7.41) VBG pCO2 31 L (41-51) mmHG VBG pO2 50 mmHG VBG HCO3 12 L (23-28) mmol/L VBG Total CO2 12 L (24-29) mmol/L VBG O2 Saturation 76 % VBG Base Excess -17 L ((-2)-3) mmol/L FiO2 0.00 POC FiO2 Sodium 140 (136-145) mmol/L Potassium 4.7 (3.5-5.1) mmol/L Chloride 106 (98-107) mmol/L Carbon Dioxide 15 L (21-32) mmol/L Anion Gap 23.7 H (10-20) mmol/L BUN 11 (7-18) mg/dL Creatinine 0.9 (0.55-1.02) mg/dL Est Cr Clr Drug Dosing 91.18 mL/min Estimated GFR (MDRD) > 60 Glucose 193 H (74-106) mg/dL POC Glucose 175 H (74-106) mg/dL Lactic Acid (0.4-2.0) mmol/L Calcium 8.7 (8.5-10.1) mg/dL Corrected Calcium (8.5-10.1) mg/dL Total Bilirubin (0.2-1.0) mg/dL AST (15-37) U/L ALT (14-59) U/L Alkaline Phosphatase (46-116) U/L Creatine Kinase 26 (26-192) U/L C-Reactive Protein (<=0.9) mg/dL Total Protein (6.4-8.2) g/dL Albumin (3.4-5.0) g/dL Globulin Albumin/Globulin Ratio Amylase (25-115) U/L Lipase (73-393) U/L Urine Color (YELLOW) Urine Appearance (CLEAR) Urine pH (5.0-8.0) Ur Specific [place] Urine Protein (NEGATIVE) mg/dL Urine Glucose (UA) (NEGATIVE) mg/dL Urine Ketones (NEGATIVE) mg/dL Urine Occult Blood (NEGATIVE) Urine Nitrite (NEGATIVE) Urine Bilirubin (NEGATIVE) Urine Urobilinogen (0.2) EU/dL Ur Leukocyte Esterase (NEGATIVE) Urine RBC (NOT SEEN) /HPF Urine WBC (NOT SEEN) /HPF Ur Squamous Epith Cells (NEGATIVE) /HPF Urine Bacteria (NEGATIVE) /HPF Urine Mucus (NEGATIVE) /LPF POC Urine HCG, Qual (NEGATIVE) Urine Opiates Screen (NEGATIVE) Ur Buprenorphine Scrn (NEGATIVE) Ur Oxycodone Screen (NEGATIVE) Urine Methadone Screen (NEGATIVE) Ur Barbiturates Screen (NEGATIVE) Ur Tricyclics Screen (NEGATIVE) Ur Amphetamine Screen (NEGATIVE) U Methamphetamines Scrn (NEGATIVE) Urine MDMA Screen (NEGATIVE) U Benzodiazepines Scrn (NEGATIVE) U Cocaine Metab Screen (NEGATIVE) U Marijuana (THC) Screen (NEGATIVE) 04/26/18 04/26/18 04/26/18 Range/Units 10:30 10:38 10:59 WBC (4.0-10.0) x10^3/uL RBC (4.00-5.50) x10^6/uL Hgb (12.0-16.0) g/dL Hct (33.0-47.0) % MCV (78.0-93.0) fL MCH (26.0-32.0) pg MCHC (32.0-36.0) g/dL RDW Coeff of Roderick (10.0-15.0) % Plt Count (130-400) x10^3/uL POC ABG pH (7.35-7.45) POC ABG pCO2 (35-45) mmHG POC ABG pO2 (80-105) mmHG POC ABG HCO3 (22-26) mmol/L POC ABG Total CO2 (23-27) mmol/L POC ABG O2 Sat (95-98) % POC ABG Base Excess (-2-3) mmol/L VBG pH (7.31-7.41) VBG pCO2 (41-51) mmHG VBG pO2 mmHG VBG HCO3 (23-28) mmol/L VBG Total CO2 (24-29) mmol/L VBG O2 Saturation % VBG Base Excess ((-2)-3) mmol/L FiO2 POC FiO2 Sodium 140 (136-145) mmol/L Potassium 4.3 (3.5-5.1) mmol/L Chloride 106 (98-107) mmol/L Carbon Dioxide 15 L (21-32) mmol/L Anion Gap 23.3 H (10-20) mmol/L BUN 10 (7-18) mg/dL Creatinine 0.9 (0.55-1.02) mg/dL Est Cr Clr Drug Dosing 90.85 mL/min Estimated GFR (MDRD) > 60 Glucose 199 H (74-106) mg/dL POC Glucose 193 H (74-106) mg/dL Lactic Acid 1.0 (0.4-2.0) mmol/L Calcium 8.6 (8.5-10.1) mg/dL Corrected Calcium 8.76 (8.5-10.1) mg/dL Total Bilirubin 0.3 (0.2-1.0) mg/dL AST 18 (15-37) U/L ALT 36 (14-59) U/L Alkaline Phosphatase 115 (46-116) U/L Creatine Kinase (26-192) U/L C-Reactive Protein 0.6 (<=0.9) mg/dL Total Protein 7.6 (6.4-8.2) g/dL Albumin 3.8 (3.4-5.0) g/dL Globulin 3.8 Albumin/Globulin Ratio 1.00 Amylase 14 L (25-115) U/L Lipase 41 L (73-393) U/L Urine Color (YELLOW) Urine Appearance (CLEAR) Urine pH (5.0-8.0) Ur Specific [place] Urine Protein (NEGATIVE) mg/dL Urine Glucose (UA) (NEGATIVE) mg/dL Urine Ketones (NEGATIVE) mg/dL Urine Occult Blood (NEGATIVE) Urine Nitrite (NEGATIVE) Urine Bilirubin (NEGATIVE) Urine Urobilinogen (0.2) EU/dL Ur Leukocyte Esterase (NEGATIVE) Urine RBC (NOT SEEN) /HPF Urine WBC (NOT SEEN) /HPF Ur Squamous Epith Cells (NEGATIVE) /HPF Urine Bacteria (NEGATIVE) /HPF Urine Mucus (NEGATIVE) /LPF POC Urine HCG, Qual (NEGATIVE) Urine Opiates Screen (NEGATIVE) Ur Buprenorphine Scrn (NEGATIVE) Ur Oxycodone Screen (NEGATIVE) Urine Methadone Screen (NEGATIVE) Ur Barbiturates Screen (NEGATIVE) Ur Tricyclics Screen (NEGATIVE) Ur Amphetamine Screen (NEGATIVE) U Methamphetamines Scrn (NEGATIVE) Urine MDMA Screen (NEGATIVE) U Benzodiazepines Scrn (NEGATIVE) U Cocaine Metab Screen (NEGATIVE) U Marijuana (THC) Screen (NEGATIVE) Kt Results Last 24 Hours: Microbiology 04/26/18 10:38 Anaerobic Blood Culture - Final Blood - Venous Med Orders - Current: Current Medications Acetaminophen (Tylenol Extra Strength) 1,000 mg PO Q6H PRN PRN Reason: Pain Amlodipine Besylate (Norvasc) 10 mg PO DAILY [facility] Atorvastatin Calcium (Lipitor) 10 mg PO BEDTIME [facility] Last Admin: 04/26/18 01:58 Dose: Not Given Cephalexin (Keflex) 500 mg PO Q8H [facility] Last Admin: 04/26/18 07:48 Dose: Not Given Enoxaparin Sodium (Lovenox) 80 mg SUBCUT Q12H [facility] Last Admin: 04/25/18 20:59 Dose: 80 mg Gabapentin (Neurontin) 600 mg PO DAILY [facility] Gabapentin (Neurontin) 300 mg PO BEDTIME [facility] Last Admin: 04/26/18 01:57 Dose: Not Given Potassium Chloride/Dextrose/Sod Cl (D5 1/2 Ns W/ 20 Meq/L Kcl) 1,000 mls @ 125 mls/hr IV ASDIRECTED [facility] Last Admin: 04/26/18 09:55 Dose: 125 mls/hr Insulin Glargine (Lantus Solostar) 35 units SUBCUT BEDTIME [facility] Last Admin: 04/25/18 22:53 Dose: 35 units Insulin Human Lispro (Humalog) 5 unit SUBCUT TIDMEALS [facility] Last Admin: 04/26/18 09:21 Dose: 5 units Morphine Sulfate (Morphine) 1 mg IV Q1H PRN PRN Reason: Pain (moderate 4-6) Last Admin: 04/25/18 23:33 Dose: 1 mg Buprenorphine Hcl/Naloxone Hcl [ Zubsolv 5.7-1.4 Mg TabletPt Own 1 tab PO DAILY [facility] Lurasidone Hcl [ Latuda] 80 MgPt Own 120 mg PO DAILY [facility] Omeprazole (Omeprazole) 20 mg PO ACBREAKFAST [facility] Last Admin: 04/26/18 07:48 Dose: Not Given Ondansetron HCl (Zofran) 4 mg IVPUSH Q4H PRN PRN Reason: Nausea Last Admin: 04/25/18 22:40 Dose: 4 mg Ropinirole HCl (Requip) 0.25 mg PO BEDTIME [facility] Sertraline HCl (Zoloft) 200 mg PO DAILY [facility] Sodium Chloride (Saline Flush) 10 ml FLUSH ASDIRECTED PRN PRN Reason: Keep Vein Open Last Admin: 04/25/18 19:42 Dose: 10 ml Warfarin Sodium (Coumadin) 5 mg PO TuWeTh@1200 [facility] Warfarin Sodium (Coumadin) 2.5 mg PO SuMoFrSa@1200 [facility] Discontinued Medications Gabapentin (Neurontin) 300 mg PO BEDTIME [facility] Lactated Ringer's (Ringers, Lactated) 1,000 mls @ 1,000 mls/hr IV ASDIRECTED [facility] Last Admin: 04/25/18 17:41 Dose: 1,000 mls/hr Insulin Human Regular 10 unit/ (Dextrose/Water) 500.1 mls @ 500 mls/hr IV ONETIME ONE Stop: 04/25/18 18:18 Last Admin: 04/25/18 17:47 Dose: Not Given Insulin Human Regular 10 unit/ (Dextrose/Water) 500.1 mls @ 500 mls/hr IV ONETIME ONE Stop: 04/25/18 18:29 Last Admin: 04/25/18 17:47 Dose: Not Given Dextrose/Water (Dextrose 10% In Water) Confirm Administered Dose 500 mls @ as directed .ROUTE .STK-MED ONE Stop: 04/25/18 17:31 Last Admin: 04/25/18 17:47 Dose: Not Given Potassium Chloride/Sodium Chloride (Normal Saline With 20 Meq Kcl) 1,000 mls @ 125 mls/hr IV ASDIRECTED [facility] Last Admin: 04/26/18 03:34 Dose: 125 mls/hr Insulin Human Regular 100 unit (/ Sodium Chloride) 100 mls @ 10 mls/hr IV ASDIRECTED [facility]; Protocol Last Admin: 04/26/18 01:55 Dose: 10 mls/hr, 10 mls/hr Potassium Chloride/Sodium Chloride (1/2 Ns With 20 Meq Kcl) 1,000 mls @ 125 mls /hr IV ASDIRECTED [facility] Insulin Glargine (Lantus Solostar) 35 units SUBCUT BEDTIME [facility] Insulin Human Regular (Humulin R) 10 unit IV ONETIME ONE Stop: 04/25/18 17:30 Last Admin: 04/25/18 17:44 Dose: 10 units Insulin Human Regular (Humulin R) 0 unit IV ONETIME ONE Stop: 04/25/18 23:26 Last Admin: 04/26/18 01:40 Dose: 10 units Morphine Sulfate (Morphine) 4 mg IVPUSH ONETIME ONE Stop: 04/25/18 17:21 Last Admin: 04/25/18 17:46 Dose: 4 mg Morphine Sulfate (Morphine) Confirm Administered Dose 2 mg .ROUTE .STK-MED ONE Stop: 04/25/18 22:07 Last Admin: 04/25/18 22:10 Dose: 2 mg Ondansetron HCl (Zofran) 4 mg IVPUSH ONETIME ONE Stop: 04/25/18 17:21 Last Admin: 04/25/18 17:42 Dose: 4 mg Ondansetron HCl (Zofran Odt) 4 mg PO Q6H PRN PRN Reason: Nausea/Vomiting Warfarin Sodium (Coumadin) 5 mg PO ONETIME ONE Stop: 04/25/18 22:31 Last Admin: 04/26/18 01:58 Dose: Not Given - Problem List Review Problem List Initiated/Reviewed/Updated: Yes - My Orders Last 24 Hours: My Active Orders 04/25/18 17:28 DRUG SCREEN, URINE [URCHEM] Routine MISC TEST Routine MISC TEST Routine 04/26/18 09:30 D5 1/2 NS w/ 20 mEq/L KCl 1,000 ml IV ASDIRECTED 04/26/18 09:59 Chest 1V Frontal [CR] Routine Foot 2V Rt [CR] Routine Blood Culture x2 Reflex Set [OM.PC] Stat 04/26/18 10:38 CULTURE BLOOD [BC] Stat 04/26/18 10:45 CULTURE BLOOD [BC] Stat 04/26/18 11:00 Blood Glucose Check, Bedside [RC] Q3H
[2018-04-26] MEDS: BUPRENORPHINE HCL PO SCH (13:24)
[2018-04-26] MEDS: NALOXONE HCL PO SCH (13:24)
[2018-04-26] MEDS: Ondansetron 4 MG/2 ML SDV IVPUSH PRN ×2 (13:28→22:49)
[2018-04-26] MEDS: Enoxaparin 80 MG/0.8 ML Syringe SUBCUT SCH ×2 (13:33→19:32)
[2018-04-26] MEDS: Warfarin 5 MG Tab PO SCH (13:34)
[2018-04-26] MEDS: amLODIPine 10 MG Tab PO SCH (13:34)
[2018-04-26] MEDS: Sertraline 100 MG Tab PO SCH (13:34)
[2018-04-26] MEDS: LURASIDONE HCL 80 MG PO SCH (13:34)
[2018-04-26 16:55] LABS: CHLORIDE,CL 105 mmol/L (98-107); SODIUM,NA 135 mmol/L (136-145)
[2018-04-26 17:00] LABS: ANION GAP 16.2 mmol/L (10-20)
[2018-04-26] MEDS: Insulin Glargine,Human Rec. Analog 100 Units/ML 3 ML Pen SUBCUT SCH (19:32)
[2018-04-26] MEDS ORDERED: Gabapentin 300 MG Cap PO SCH (20:00)
[2018-04-26] MEDS ORDERED: rOPINIRole 0.5 MG Tab PO SCH (20:00)
[2018-04-26] MEDS ORDERED: Insulin Glargine,Human Rec. Analog 100 Units/ML 3 ML Pen SUBCUT SCH (20:00)
[2018-04-27] MEDS: D5 1/2 NS w/ 20 mEq/L KCl 1,000 ML IV SCH (02:01)
[2018-04-27] MEDS: Omeprazole 20 MG Cap.CR PO SCH (06:04)
[2018-04-27] MEDS: Cephalexin 500 MG Cap PO SCH (06:04)
[2018-04-27 06:45] LABS: ANION GAP 10.8 mmol/L (10-20); CHLORIDE,CL 107 mmol/L (98-107); SODIUM,NA 138 mmol/L (136-145)
[2018-04-27] MEDS: Insulin Lispro 100 Unit/ML 3 ML KwikPen SUBCUT SCH ×2 (08:50→12:09)
[2018-04-27] MEDS: Enoxaparin 80 MG/0.8 ML Syringe SUBCUT SCH (08:50)
[2018-04-27] MEDS: LURASIDONE HCL 80 MG PO SCH (08:52)
[2018-04-27] MEDS: amLODIPine 10 MG Tab PO SCH (08:52)
[2018-04-27] MEDS: Gabapentin 300 MG Cap PO SCH (08:52)
[2018-04-27] MEDS: Sertraline 100 MG Tab PO SCH (08:52)
[2018-04-27] MEDS ORDERED: Calcium Carbonate 750 MG Tab.Chew PO PRN (09:05)
[2018-04-27] MEDS: Ondansetron 4 MG/2 ML SDV IVPUSH PRN (09:12)
[2018-04-27 10:59] VITALS: BP 121/75
[2018-04-27] MEDS: BUPRENORPHINE HCL PO SCH (11:25)
[2018-04-27] MEDS: NALOXONE HCL PO SCH (11:25)
[2018-04-27] MEDS: Warfarin 5 MG Tab PO SCH (12:08)
--- NOTE | 2018-04-27 15:57 | PCM.DCSUM1 ---
Discharge Summary - Hospital Course Free Text/Narrative:: Patient was in for DKA. Came back to the ER and then was admitted. She was having some epigastric discomfort associated with nausea maybe felt a bit warm and chilled without opal fever. No diarrhea or dysuria. No dyspnea. History of past cholecystectomy. Hx of PUD and [place]. No sign of any acute abdominal process. CRP WNL WBC resolved Hgb stable. Last A1c 7.2 couple months ago. She states sugars generally run 200s at home but admitted getting higher the past couple days along with her above abdominal symptoms. She denies missing any insulin. Things are otherwise going well she has her children back at home she is working again. Nursing notes she continues to be somewhat lethargic but now has woken up and she states she's feeling a lot better and stronger. She was started on Insulin drip plus normal saline bolus. VSS stable, slightly sweaty, heart and lungs clear other than chronic tachyhcardia Abd soft and non tender Has echar to heel and doral foot but not grossly infected DKA resolved with fluids and insulin here. Exact cause of this episode is not entirely clear. Acidosis improved after switching to half-normal saline. Sodium and potassium remain stable. We will refer back to informatics educator we will refer her to endocrinology again. She wasn't eating a whole lot before she left she'll need to decrease prandial insulin until she is resuming her regular diet. Follow with podiatry for chronic foot ulcers Diagnosis: Stroke: No - Discharge Data Discharge Date: 04/27/18 Discharge Disposition: Home, Self-Care 01 Condition: Good - Discharge Plan *PRESCRIPTION DRUG MONITORING PROGRAM REVIEWED*: No *COPY OF PRESCRIPTION DRUG MONITORING REPORT IN PATIENT ISHAN: No Home Medications: Home Meds Lurasidone HCl [Latuda] 120 mg PO DAILY 04/17/17 [History] atorvaSTATin [Lipitor] 10 mg PO BEDTIME 07/09/17 [History] Gabapentin [Neurontin] 600 mg PO DAILY 01/29/18 [History] Warfarin [Coumadin] 2.5 mg PO SUMOFRSA@08 01/29/18 [History] Omeprazole 20 mg PO DAILY 02/12/18 [History] amLODIPine Besylate [Norvasc] 10 mg PO DAILY 02/12/18 [History] Dextrose [Glucose] 16 gm PO ASDIRECTED PRN 02/13/18 [History] Sertraline [Zoloft] 200 mg PO DAILY tablet 02/16/18 [Rx] Insulin Glarg,Human.Rec.Analog [Lantus] 35 unit SUBCUT BEDTIME 03/06/18 [History ] Insulin Lispro [Humalog Kwikpen U-100] 5 unit SQ TIDMEALS 03/06/18 [History] rOPINIRole HCl [Requip] 0.25 mg PO BEDTIME 03/06/18 [History] Acetaminophen [Tylenol Extra Strength] 1,000 mg PO Q6H PRN 04/25/18 [History] Buprenorphine HCl/Naloxone HCl [Zubsolv 5.7-1.4 mg Tablet Sl] 1 tab PO DAILY [History] Cephalexin [Keflex] 500 mg PO Q8H 04/25/18 [History] Gabapentin [Neurontin] 300 mg PO BEDTIME 04/25/18 [History] Insulin Lispro [Humalog] 0 unit SQ TIDMEALS 04/25/18 [History] Warfarin [Coumadin] 5 mg PO TUWETH@08 04/25/18 [History] Warfarin [Coumadin] 2.5 mg PO SuMoFrSa@1200 tablet 04/27/18 [Rx] Forms: ED Department Discharge Referrals: Avila Aaron MD [Primary Care Provider] - - Patient Data Vitals - Most Recent: Last Vital Signs Temp 35.6 C 04/27/18 10:58 Pulse 79 04/27/18 10:58 Resp 16 04/27/18 10:58 BP 121/75 04/27/18 10:58 Pulse Ox 97 04/27/18 10:58 Weight - Most Recent: 77 kg I&O - Last 24 hours: Intake & Output 04/27/18 04/27/18 04/27/18 06:59 14:59 22:59 Intake Total 1736 1406 Balance 1736 1406 Lab Results - Last 24 hrs: Laboratory Results - last 24 hr 04/26/18 04/26/18 04/26/18 Range/Units 16:34 17:31 21:09 WBC (4.0-10.0) x10^3/uL RBC (4.00-5.50) x10^6/uL Hgb (12.0-16.0) g/dL Hct (33.0-47.0) % MCV (78.0-93.0) fL MCH (26.0-32.0) pg MCHC (32.0-36.0) g/dL RDW Coeff of Roderick (10.0-15.0) % Plt Count (130-400) x10^3/uL Neut % (Auto) (50.0-80.0) % Lymph % (Auto) (25.0-50.0) % [place] % (Auto) (2.0-11.0) % Eos % (Auto) (0.0-4.0) % Baso % (Auto) (0.2-1.2) % PT (9.6-11.4) SEC INR (2.0-3.5) POC VBG pH (7.31-7.41) POC VBG pCO2 (41-51) POC VBG pO2 POC VBG HCO3 (23-28) POC VBG Total CO2 (24-29) POC VBG Base Excess ((-2) - 3) POC FiO2 Sodium 135 L (136-145) mmol/L Potassium 4.2 (3.5-5.1) mmol/L Chloride 105 (98-107) mmol/L Carbon Dioxide 18 L (21-32) mmol/L Anion Gap 16.2 (10-20) mmol/L BUN 7 (7-18) mg/dL Creatinine 0.8 (0.55-1.02) mg/dL Est Cr Clr Drug Dosing 102.21 mL/min Estimated GFR (MDRD) > 60 Glucose 264 H (74-106) mg/dL POC Glucose 218 H 221 H (74-106) mg/dL Calcium 8.2 L (8.5-10.1) mg/dL 04/27/18 04/27/18 04/27/18 Range/Units 00:10 03:00 06:03 WBC (4.0-10.0) x10^3/uL RBC (4.00-5.50) x10^6/uL Hgb (12.0-16.0) g/dL Hct (33.0-47.0) % MCV (78.0-93.0) fL MCH (26.0-32.0) pg MCHC (32.0-36.0) g/dL RDW Coeff of Roderick (10.0-15.0) % Plt Count (130-400) x10^3/uL Neut % (Auto) (50.0-80.0) % Lymph % (Auto) (25.0-50.0) % [place] % (Auto) (2.0-11.0) % Eos % (Auto) (0.0-4.0) % Baso % (Auto) (0.2-1.2) % PT (9.6-11.4) SEC INR (2.0-3.5) POC VBG pH (7.31-7.41) POC VBG pCO2 (41-51) POC VBG pO2 POC VBG HCO3 (23-28) POC VBG Total CO2 (24-29) POC VBG Base Excess ((-2) - 3) POC FiO2 Sodium (136-145) mmol/L Potassium (3.5-5.1) mmol/L Chloride (98-107) mmol/L Carbon Dioxide (21-32) mmol/L Anion Gap (10-20) mmol/L BUN (7-18) mg/dL Creatinine (0.55-1.02) mg/dL Est Cr Clr Drug Dosing mL/min Estimated GFR (MDRD) Glucose (74-106) mg/dL POC Glucose 236 H 236 H 214 H (74-106) mg/dL Calcium (8.5-10.1) mg/dL 04/27/18 04/27/18 04/27/18 Range/Units 06:15 06:15 06:15 WBC 6.3 (4.0-10.0) x10^3/uL RBC 4.39 (4.00-5.50) x10^6/uL Hgb 12.6 D (12.0-16.0) g/dL Hct 34.7 (33.0-47.0) % MCV 79.0 (78.0-93.0) fL MCH 28.7 (26.0-32.0) pg MCHC 36.3 H (32.0-36.0) g/dL RDW Coeff of Roderick 13.9 (10.0-15.0) % Plt Count 321 D (130-400) x10^3/uL Neut % (Auto) 61.5 (50.0-80.0) % Lymph % (Auto) 32.2 (25.0-50.0) % [place] % (Auto) 4.1 (2.0-11.0) % Eos % (Auto) 1.7 (0.0-4.0) % Baso % (Auto) 0.5 (0.2-1.2) % PT 23.9 H D (9.6-11.4) SEC INR 2.3 (2.0-3.5) POC VBG pH (7.31-7.41) POC VBG pCO2 (41-51) POC VBG pO2 POC VBG HCO3 (23-28) POC VBG Total CO2 (24-29) POC VBG Base Excess ((-2) - 3) POC FiO2 Sodium 138 (136-145) mmol/L Potassium 3.8 (3.5-5.1) mmol/L Chloride 107 (98-107) mmol/L Carbon Dioxide 24 (21-32) mmol/L Anion Gap 10.8 (10-20) mmol/L BUN 4 L (7-18) mg/dL Creatinine 0.7 (0.55-1.02) mg/dL Est Cr Clr Drug Dosing 116.81 mL/min Estimated GFR (MDRD) > 60 Glucose 251 H (74-106) mg/dL POC Glucose (74-106) mg/dL Calcium 8.3 L (8.5-10.1) mg/dL 04/27/18 04/27/18 Range/Units 06:33 11:21 WBC (4.0-10.0) x10^3/uL RBC (4.00-5.50) x10^6/uL Hgb (12.0-16.0) g/dL Hct (33.0-47.0) % MCV (78.0-93.0) fL MCH (26.0-32.0) pg MCHC (32.0-36.0) g/dL RDW Coeff of Roderick (10.0-15.0) % Plt Count (130-400) x10^3/uL Neut % (Auto) (50.0-80.0) % Lymph % (Auto) (25.0-50.0) % [place] % (Auto) (2.0-11.0) % Eos % (Auto) (0.0-4.0) % Baso % (Auto) (0.2-1.2) % PT (9.6-11.4) SEC INR (2.0-3.5) POC VBG pH 7.37 (7.31-7.41) POC VBG pCO2 35 L (41-51) POC VBG pO2 53 POC VBG HCO3 20 L (23-28) POC VBG Total CO2 21 L (24-29) POC VBG Base Excess -5 L ((-2) - 3) POC FiO2 0.21 Sodium (136-145) mmol/L Potassium (3.5-5.1) mmol/L Chloride (98-107) mmol/L Carbon Dioxide (21-32) mmol/L Anion Gap (10-20) mmol/L BUN (7-18) mg/dL Creatinine (0.55-1.02) mg/dL Est Cr Clr Drug Dosing mL/min Estimated GFR (MDRD) Glucose (74-106) mg/dL POC Glucose 137 H (74-106) mg/dL Calcium (8.5-10.1) mg/dL JONATHAN Results - Last 24 hrs: Microbiology 04/26/18 10:45 Aerobic Blood Culture - Preliminary Blood - Venous - Lab Draw NO GROWTH AFTER 1 DAY Anaerobic Blood Culture - Preliminary NO GROWTH AFTER 1 DAY 04/26/18 10:38 Aerobic Blood Culture - Preliminary Blood - Venous NO GROWTH AFTER 1 DAY Anaerobic Blood Culture - Final Med Orders - Current: Current Medications Discontinued Medications Acetaminophen (Tylenol Extra Strength) 1,000 mg PO Q6H PRN PRN Reason: Pain Amlodipine Besylate (Norvasc) 10 mg PO DAILY [facility] Last Admin: 04/27/18 08:52 Dose: 10 mg Atorvastatin Calcium (Lipitor) 10 mg PO BEDTIME [facility] Last Admin: 04/26/18 19:32 Dose: 10 mg Calcium Carbonate/Glycine (Tums Extra Strength) 750 mg PO Q2H PRN PRN Reason: Dyspepsia Cephalexin (Keflex) 500 mg PO Q8H [facility] Last Admin: 04/27/18 06:04 Dose: 500 mg Enoxaparin Sodium (Lovenox) 80 mg SUBCUT Q12H [facility] Last Admin: 04/27/18 08:50 Dose: 80 mg Gabapentin (Neurontin) 300 mg PO BEDTIME [facility] Gabapentin (Neurontin) 600 mg PO DAILY [facility] Last Admin: 04/27/18 08:52 Dose: 600 mg Gabapentin (Neurontin) 300 mg PO BEDTIME [facility] Last Admin: 04/26/18 19:31 Dose: 300 mg Lactated Ringer's (Ringers, Lactated) 1,000 mls @ 1,000 mls/hr IV ASDIRECTED [facility] Last Admin: 04/25/18 17:41 Dose: 1,000 mls/hr Insulin Human Regular 10 unit/ (Dextrose/Water) 500.1 mls @ 500 mls/hr IV ONETIME ONE Stop: 04/25/18 18:18 Last Admin: 04/25/18 17:47 Dose: Not Given Insulin Human Regular 10 unit/ (Dextrose/Water) 500.1 mls @ 500 mls/hr IV ONETIME ONE Stop: 04/25/18 18:29 Last Admin: 04/25/18 17:47 Dose: Not Given Dextrose/Water (Dextrose 10% In Water) Confirm Administered Dose 500 mls @ as directed .ROUTE .STK-MED ONE Stop: 04/25/18 17:31 Last Admin: 04/25/18 17:47 Dose: Not Given Potassium Chloride/Sodium Chloride (Normal Saline With 20 Meq Kcl) 1,000 mls @ 125 mls/hr IV ASDIRECTED [facility] Last Admin: 04/26/18 03:34 Dose: 125 mls/hr Insulin Human Regular 100 unit (/ Sodium Chloride) 100 mls @ 10 mls/hr IV ASDIRECTED [facility]; Protocol Last Admin: 04/26/18 01:55 Dose: 10 mls/hr, 10 mls/hr Potassium Chloride/Sodium Chloride (1/2 Ns With 20 Meq Kcl) 1,000 mls @ 125 mls /hr IV ASDIRECTED [facility] Potassium Chloride/Dextrose/Sod Cl (D5 1/2 Ns W/ 20 Meq/L Kcl) 1,000 mls @ 125 mls/hr IV ASDIRECTED [facility] Last Admin: 04/27/18 02:01 Dose: 125 mls/hr Insulin Glargine (Lantus Solostar) 35 units SUBCUT BEDTIME [facility] Insulin Glargine (Lantus Solostar) 35 units SUBCUT BEDTIME [facility] Last Admin: 04/26/18 19:32 Dose: 35 units Insulin Human Lispro (Humalog) 5 unit SUBCUT TIDMEALS [facility] Last Admin: 04/27/18 12:09 Dose: 2 units Insulin Human Regular (Humulin R) 10 unit IV ONETIME ONE Stop: 04/25/18 17:30 Last Admin: 04/25/18 17:44 Dose: 10 units Insulin Human Regular (Humulin R) 0 unit IV ONETIME ONE Stop: 04/25/18 23:26 Last Admin: 04/26/18 01:40 Dose: 10 units Morphine Sulfate (Morphine) 4 mg IVPUSH ONETIME ONE Stop: 04/25/18 17:21 Last Admin: 04/25/18 17:46 Dose: 4 mg Morphine Sulfate (Morphine) 1 mg IV Q1H PRN PRN Reason: Pain (moderate 4-6) Last Admin: 04/25/18 23:33 Dose: 1 mg Morphine Sulfate (Morphine) Confirm Administered Dose 2 mg .ROUTE .STK-MED ONE Stop: 04/25/18 22:07 Last Admin: 04/25/18 22:10 Dose: 2 mg Buprenorphine Hcl/Naloxone Hcl [ Zubsolv 5.7-1.4 Mg TabletPt Own 1 tab PO DAILY [facility] Last Admin: 04/27/18 11:25 Dose: 0.5 tab Lurasidone Hcl [ Latuda] 80 MgPt Own 120 mg PO DAILY [facility] Last Admin: 04/27/18 08:52 Dose: 120 mg Omeprazole (Omeprazole) 20 mg PO ACBREAKFAST [facility] Last Admin: 04/27/18 06:04 Dose: 20 mg Ondansetron HCl (Zofran) 4 mg IVPUSH ONETIME ONE Stop: 04/25/18 17:21 Last Admin: 04/25/18 17:42 Dose: 4 mg Ondansetron HCl (Zofran Odt) 4 mg PO Q6H PRN PRN Reason: Nausea/Vomiting Ondansetron HCl (Zofran) 4 mg IVPUSH Q4H PRN PRN Reason: Nausea Last Admin: 04/27/18 09:12 Dose: 4 mg Ropinirole HCl (Requip) 0.25 mg PO BEDTIME [facility] Last Admin: 04/26/18 19:31 Dose: 0.25 mg Sertraline HCl (Zoloft) 200 mg PO DAILY [facility] Last Admin: 04/27/18 08:52 Dose: 200 mg Sodium Chloride (Saline Flush) 10 ml FLUSH ASDIRECTED PRN PRN Reason: Keep Vein Open Last Admin: 04/25/18 19:42 Dose: 10 ml Warfarin Sodium (Coumadin) 5 mg PO TuWeTh@1200 [facility] Last Admin: 04/27/18 12:08 Dose: 5 mg Warfarin Sodium (Coumadin) 5 mg PO ONETIME ONE Stop: 04/25/18 22:31 Last Admin: 04/26/18 01:58 Dose: Not Given Warfarin Sodium (Coumadin) 2.5 mg PO SuMoFrSa@1200 [facility]
[2018-04-29] MEDS ORDERED: Warfarin 2.5 MG Tab PO SCH (12:00)
== END 2018-04-27 12:30 | disposition home or self-care (01) | DRG 639 ==
LOC: VM.ED 17:11 → VM.MS 17:38
PROVIDERS: ADMIT Family Medicine; ATTEND Family Medicine
DX: E10.10 Type 1 diabetes mellitus with ketoacidosis without coma (principal); F31.9 Bipolar disorder, unspecified; I10 Essential (primary) hypertension; K21.9 Gastro-esophageal reflux disease without esophagitis; K27.9 Peptic ulcer, site unspecified, unspecified as acute or chronic, without hemorrhage or perforation; E86.0 Dehydration; M54.5 Low back pain; E10.40 Type 1 diabetes mellitus with diabetic neuropathy, unspecified; E10.621 Type 1 diabetes mellitus with foot ulcer; Z88.8 Allergy status to other drugs, medicaments and biological substances; L97.519 Non-pressure chronic ulcer of other part of right foot with unspecified severity; F41.9 Anxiety disorder, unspecified; Z79.899 Other long term (current) drug therapy; Z79.4 Long term (current) use of insulin; Z86.718 Personal history of other venous thrombosis and embolism; Z79.01 Long term (current) use of anticoagulants; Z83.3 Family history of diabetes mellitus
CPT/HCPCS: 80305; 82962; 99285; G0480 ×2; 36415; 36600; 71045; 80048; 80053; 81001; 81025; 82150; 82550; 82803; 83605; 83690; 85025; 85027; 85610; 86140; 87040; 94760; 96374; 96375; A9270-GY; J1650; J1815; J1815-GY; J2270; J2405; J3480; J7050; J7120

== ENCOUNTER 2018-05-19 19:32 | Emergency (ER) | payer MEDICAID ==
[2018-05-19] MEDS ORDERED: Sodium Chloride 0.9% 1,000 ML IV ONE (19:50)
[2018-05-19] MEDS ORDERED: HYDROmorphone 1 MG/ML Syringe IVPUSH ONE ×2 (19:53→22:05)
[2018-05-19] MEDS ORDERED: Ondansetron 4 MG/2 ML SDV IVPUSH ONE (19:54)
[2018-05-19 20:45] VITALS: BP 118/72
[2018-05-19 20:46] LABS: CHLORIDE,CL 95 mmol/L (98-107)
[2018-05-19 20:48] LABS: ANION GAP 10.3 mmol/L (10-20); SODIUM,NA 130 mmol/L (136-145)
[2018-05-19] MEDS ORDERED: cefTRIAXone 1 GM Vial IVPUSH ONE (20:55)
--- NOTE | 2018-05-19 22:07 | EDM.PDOC ---
ED HPI GENERAL MEDICAL PROBLEM - General Chief Complaint: Lower Extremity Injury/Pain Stated Complaint: right leg pain Time Seen by Provider: 05/19/18 19:48 Source of Information: Reports: Patient, EMS History Limitations: Reports: No Limitations - History of Present Illness INITIAL COMMENTS - FREE TEXT/NARRATIVE: Patient comes in this evening with complaints of right lower leg pain. She was recently admitted here for hypomagnesemia, vomiting, diarrhea. During the stay she had increasingly more right lower extremity pain. She was that time started on prophylactic twice a day Lovenox due to prior history of DVT. This evening she comes in with complaints of chills, increased swelling to the right leg, as well as pain. She does also have some nausea. She's been here on numerous occasions with diabetic ketoacidosis, hypomagnesemia, hyponatremia. Her blood sugar levels are not well controlled. She does also have ulcers to the dorsum of her right foot as well as her heel Onset: Gradual Duration: Getting Worse Location: Reports: Lower Extremity, Right Quality: Reports: Burning, Sharp Improves with: Reports: None Worsens with: Reports: Movement Associated Symptoms: Reports: Fever/Chills, Nausea/Vomiting Treatments PHARMACY RESIDENT: Reports: IV/IO right lower leg Pain Score (Numeric/FACES): 10 - Related Data Allergies Allergy/AdvReac Type Severity Reaction Status Date / Time ibuprofen AdvReac Stomach Verified 05/19/18 19:47 Upset Home Meds: Home Meds Lurasidone HCl [Latuda] 120 mg PO DAILY 04/17/17 [History] atorvaSTATin [Lipitor] 10 mg PO BEDTIME 07/09/17 [History] Omeprazole 20 mg PO DAILY 02/12/18 [History] amLODIPine Besylate [Norvasc] 10 mg PO DAILY 02/12/18 [History] Dextrose [Glucose] 16 gm PO ASDIRECTED PRN 02/13/18 [History] Sertraline [Zoloft] 200 mg PO DAILY tablet 02/16/18 [Rx] Insulin Glarg,Human.Rec.Analog [Lantus] 35 unit SUBCUT BEDTIME 03/06/18 [History ] Insulin Lispro [Humalog Kwikpen U-100] 5 unit SQ TIDMEALS 03/06/18 [History] rOPINIRole HCl [Requip] 0.25 mg PO BEDTIME 03/06/18 [History] Acetaminophen [Tylenol Extra Strength] 1,000 mg PO Q6H PRN 04/25/18 [History] Gabapentin [Neurontin] 300 mg PO BID 04/25/18 [History] Aspirin [Ecotrin] 81 mg PO DAILY 05/13/18 [History] Buprenorphine HCl/Naloxone HCl [Zubsolv 11.4-2.9 mg Tablet Sl] 1 each SL DAILY 05/13/18 [History] Buprenorphine HCl/Naloxone HCl [Zubsolv 11.4-2.9 mg Tablet Sl] 2 each SL DAILY 05/14/18 [Rx] Enoxaparin Sodium [Lovenox] 75 mg SQ BID #7 ml 05/14/18 [Rx] Enoxaparin [Lovenox] 75 mg SUBCUT Q12H #7 syringe 05/14/18 [Rx] Insulin Lispro [Humalog] 5 unit SUBCUT TIDMEALS pen 05/14/18 [Rx] Magnesium Oxide 400 mg PO BID 5 Days #10 tablet 05/14/18 [Rx] Meclizine [Antivert] 25 mg PO Q6H PRN 3 Days #12 tablet 05/14/18 [Rx] Nicotine [Habitrol] 14 mg TRDERM DAILY 30 Days #0 patch 05/14/18 [Rx] Ondansetron [Zofran ODT] 4 mg PO Q4H PRN 4 Days #12 tab.dis 05/14/18 [Rx] Past Medical History HEENT History: Reports: Impaired Vision Cardiovascular History: Reports: Blood Clots/VTE/DVT, Hypertension Respiratory History: Reports: Other (See Below) Other Respiratory History: hx of acute respiratory failure Gastrointestinal History: Reports: Irritable Bowel Syndrome, PUD Other Gastrointestinal History: acid reflux Genitourinary History: Reports: Urinary Incontinence, Other (See Below) Other Genitourinary History: hx of UTI, hx of acute kidney injury Musculoskeletal History: Reports: Other (See Below) Other Musculoskeletal History: right foot drop Neurological History: Reports: Neuropathy, Diabetic Psychiatric History: Reports: Anxiety, Bipolar, PTSD, Other (See Below) Other Psychiatric History: chronic narcotic use Endocrine/Metabolic History: Reports: Diabetes, Type II, Other (See Below) Other Endocrine/Metabolic History: 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, hx of ketoacidosis Hematologic History: Reports: Other (See Below) - Past Surgical History GI Surgical History: Reports: Cholecystectomy, Other (See Below) Other GI Surgeries/Procedures: Esophagus/ stomach repair Musculoskeletal Surgical History: Reports: Hip Replacement, Other (See Below) Other Musculoskeletal Surgeries/Procedures:: hx of carpal tunnel repair Social & Family History - Family History Family Medical History: Noncontributory Other Psychiatric Family History: 2 brothers with substance abuse problems[ Endocrine/Metabolic: Reports: Diabetes, type II - Tobacco Use Smoking Status *Q: Unknown Ever Smoked - Caffeine Use Caffeine Use: Reports: Coffee - Living Situation & Occupation Living situation: Reports: Occupation: Employed (has 2 children which she shares with jerry, mother has been living with her while she convalesces from DKA and mentla health issues. lizeth at [facility]) Review of Systems - Review of Systems Review Of Systems: See Below Constitutional: Reports: Chills Ears: Reports: No Symptoms Nose: Reports: No Symptoms Mouth/Throat: Reports: No Symptoms Respiratory: Reports: No Symptoms Cardiovascular: Reports: No Symptoms GI/Abdominal: Reports: Nausea Genitourinary: Reports: No Symptoms Musculoskeletal: Reports: Leg Pain Skin: Reports: No Symptoms Neurological: Reports: No Symptoms Psychiatric: Reports: No Symptoms ED EXAM, GENERAL - Physical Exam Exam: See Below Exam Limited By: No Limitations General Appearance: Alert, WD/WN, Moderate Distress Eye Exam: Bilateral Eye: EOMI, Normal Inspection, PERRL Ears: Normal TMs Throat/Mouth: Normal Inspection, Normal Lips, Normal Teeth, Normal Gums, Normal Oropharynx, Normal Voice, No Airway Compromise Head: Atraumatic, Normocephalic Neck: Normal Inspection, Supple, Non-Tender, Full Range of Motion Respiratory/Chest: No Respiratory Distress, Lungs Clear, Normal Breath Sounds, No Accessory Muscle Use, Chest Non-Tender Cardiovascular: Normal Peripheral Pulses, Regular Rate, Rhythm, No Edema, No Gallop, No JVD, No Murmur, No Rub Peripheral Pulses: 2+: Popliteal (L), Popliteal (R), Posterior Tibial (L), Posterior Tibial (R), Dorsalis Pedis (L), Dorsalis Pedis (R) GI/Abdominal: Normal Bowel Sounds, Soft, Non-Tender, No Organomegaly, No Distention, No Abnormal Bruit, No Mass Back Exam: Normal Inspection, Full Range of Motion, NT Extremities: Pedal Edema (right leg), Anum's Sign, Limited Range of Motion, Increased Warmth, Redness Neurological: Alert, Oriented, CN II-XII Intact, Normal Cognition, Normal Gait, Normal Reflexes, No Motor/Sensory Deficits Psychiatric: Anxious, Tearful Skin Exam: Erythema Lymphatic: No Adenopathy Course - Vital Signs Last Recorded V/S: Last Vital Signs Temp 38.3 C H 05/19/18 20:44 Pulse 96 05/19/18 20:44 Resp 18 05/19/18 20:44 BP 118/72 05/19/18 20:44 Pulse Ox 96 05/19/18 20:44 - Orders/Labs/Meds Orders: Active Orders 24 hr Category Date Time Status Chest 1V Frontal [CR] Stat Exams 05/19/18 19:50 Taken CULTURE BLOOD [BC] Stat Lab 05/19/18 20:00 Received CULTURE BLOOD [BC] Stat Lab 05/19/18 20:05 Received Blood Culture x2 Reflex Set [OM.PC] Stat Oth 05/19/18 19:54 Ordered Labs: Laboratory Tests 05/19/18 05/19/18 05/19/18 Range/Units 19:38 20:00 20:00 WBC 17.1 H (4.0-10.0) x10^3/uL RBC 4.52 (4.00-5.50) x10^6/uL Hgb 13.0 D (12.0-16.0) g/dL Hct 36.6 (33.0-47.0) % MCV 81.0 (78.0-93.0) fL MCH 28.8 (26.0-32.0) pg MCHC 35.5 (32.0-36.0) g/dL RDW Coeff of Roderick 14.1 (10.0-15.0) % Plt Count 333 (130-400) x10^3/uL Neut % (Auto) 86.8 H (50.0-80.0) % Lymph % (Auto) 8.7 L (25.0-50.0) % Craig % (Auto) 3.9 (2.0-11.0) % Eos % (Auto) 0.4 (0.0-4.0) % Baso % (Auto) 0.2 (0.2-1.2) % PT (9.6-11.4) SEC INR (2.0-3.5) APTT (21.3-33.5) SEC Sodium 130 L (136-145) mmol/L Potassium 4.3 (3.5-5.1) mmol/L Chloride 95 L (98-107) mmol/L Carbon Dioxide 29 (21-32) mmol/L Anion Gap 10.3 (10-20) mmol/L BUN 10 (7-18) mg/dL Creatinine 0.8 (0.55-1.02) mg/dL Est Cr Clr Drug Dosing TNP Estimated GFR (MDRD) > 60 Glucose 335 H (74-106) mg/dL POC Glucose 337 H (74-106) mg/dL Lactic Acid (0.4-2.0) mmol/L Calcium 9.3 (8.5-10.1) mg/dL Corrected Calcium 9.62 (8.5-10.1) mg/dL Total Bilirubin 0.6 (0.2-1.0) mg/dL AST 14 L (15-37) U/L ALT 23 (14-59) U/L Alkaline Phosphatase 124 H (46-116) U/L Creatine Kinase (26-192) U/L C-Reactive Protein (<=0.9) mg/dL Total Protein 7.6 (6.4-8.2) g/dL Albumin 3.6 (3.4-5.0) g/dL Globulin 4.0 Albumin/Globulin Ratio 0.90 Urine Color (YELLOW) Urine Appearance (CLEAR) Urine pH (5.0-8.0) Ur Specific [place] Urine Protein (NEGATIVE) mg/dL Urine Glucose (UA) (NEGATIVE) mg/dL Urine Ketones (NEGATIVE) mg/dL Urine Occult Blood (NEGATIVE) Urine Nitrite (NEGATIVE) Urine Bilirubin (NEGATIVE) Urine Urobilinogen (0.2) EU/dL Ur Leukocyte Esterase (NEGATIVE) Urine RBC (NOT SEEN) /HPF Urine WBC (NOT SEEN) /HPF Ur Squamous Epith Cells (NEGATIVE) /HPF Urine Bacteria (NEGATIVE) /HPF Urine Mucus (NEGATIVE) /LPF 05/19/18 05/19/18 05/19/18 Range/Units 20:00 20:00 20:20 WBC (4.0-10.0) x10^3/uL RBC (4.00-5.50) x10^6/uL Hgb (12.0-16.0) g/dL Hct (33.0-47.0) % MCV (78.0-93.0) fL MCH (26.0-32.0) pg MCHC (32.0-36.0) g/dL RDW Coeff of Roderick (10.0-15.0) % Plt Count (130-400) x10^3/uL Neut % (Auto) (50.0-80.0) % Lymph % (Auto) (25.0-50.0) % Craig % (Auto) (2.0-11.0) % Eos % (Auto) (0.0-4.0) % Baso % (Auto) (0.2-1.2) % PT 10.2 (9.6-11.4) SEC INR 1.0 L (2.0-3.5) APTT 30.5 (21.3-33.5) SEC Sodium (136-145) mmol/L Potassium (3.5-5.1) mmol/L Chloride (98-107) mmol/L Carbon Dioxide (21-32) mmol/L Anion Gap (10-20) mmol/L BUN (7-18) mg/dL Creatinine (0.55-1.02) mg/dL Est Cr Clr Drug Dosing Estimated GFR (MDRD) Glucose (74-106) mg/dL POC Glucose (74-106) mg/dL Lactic Acid 1.9 (0.4-2.0) mmol/L Calcium (8.5-10.1) mg/dL Corrected Calcium (8.5-10.1) mg/dL Total Bilirubin (0.2-1.0) mg/dL AST (15-37) U/L ALT (14-59) U/L Alkaline Phosphatase (46-116) U/L Creatine Kinase 36 (26-192) U/L C-Reactive Protein 1.6 H (<=0.9) mg/dL Total Protein (6.4-8.2) g/dL Albumin (3.4-5.0) g/dL Globulin Albumin/Globulin Ratio Urine Color (YELLOW) Urine Appearance (CLEAR) Urine pH (5.0-8.0) Ur Specific [place] Urine Protein (NEGATIVE) mg/dL Urine Glucose (UA) (NEGATIVE) mg/dL Urine Ketones (NEGATIVE) mg/dL Urine Occult Blood (NEGATIVE) Urine Nitrite (NEGATIVE) Urine Bilirubin (NEGATIVE) Urine Urobilinogen (0.2) EU/dL Ur Leukocyte Esterase (NEGATIVE) Urine RBC (NOT SEEN) /HPF Urine WBC (NOT SEEN) /HPF Ur Squamous Epith Cells (NEGATIVE) /HPF Urine Bacteria (NEGATIVE) /HPF Urine Mucus (NEGATIVE) /LPF 05/19/18 Range/Units 21:34 WBC (4.0-10.0) x10^3/uL RBC (4.00-5.50) x10^6/uL Hgb (12.0-16.0) g/dL Hct (33.0-47.0) % MCV (78.0-93.0) fL MCH (26.0-32.0) pg MCHC (32.0-36.0) g/dL RDW Coeff of Roderick (10.0-15.0) % Plt Count (130-400) x10^3/uL Neut % (Auto) (50.0-80.0) % Lymph % (Auto) (25.0-50.0) % Craig % (Auto) (2.0-11.0) % Eos % (Auto) (0.0-4.0) % Baso % (Auto) (0.2-1.2) % PT (9.6-11.4) SEC INR (2.0-3.5) APTT (21.3-33.5) SEC Sodium (136-145) mmol/L Potassium (3.5-5.1) mmol/L Chloride (98-107) mmol/L Carbon Dioxide (21-32) mmol/L Anion Gap (10-20) mmol/L BUN (7-18) mg/dL Creatinine (0.55-1.02) mg/dL Est Cr Clr Drug Dosing Estimated GFR (MDRD) Glucose (74-106) mg/dL POC Glucose (74-106) mg/dL Lactic Acid (0.4-2.0) mmol/L Calcium (8.5-10.1) mg/dL Corrected Calcium (8.5-10.1) mg/dL Total Bilirubin (0.2-1.0) mg/dL AST (15-37) U/L ALT (14-59) U/L Alkaline Phosphatase (46-116) U/L Creatine Kinase (26-192) U/L C-Reactive Protein (<=0.9) mg/dL Total Protein (6.4-8.2) g/dL Albumin (3.4-5.0) g/dL Globulin Albumin/Globulin Ratio Urine Color Yellow (YELLOW) Urine Appearance Slightly cloudy H (CLEAR) Urine pH 7.0 (5.0-8.0) Ur Specific [place] 1.010 Urine Protein Negative (NEGATIVE) mg/dL Urine Glucose (UA) >=1000 H (NEGATIVE) mg/dL Urine Ketones Trace H (NEGATIVE) mg/dL Urine Occult Blood Negative (NEGATIVE) Urine Nitrite Negative (NEGATIVE) Urine Bilirubin Negative (NEGATIVE) Urine Urobilinogen 0.2 (0.2) EU/dL Ur Leukocyte Esterase Negative (NEGATIVE) Urine RBC 0-5 (NOT SEEN) /HPF Urine WBC 0-5 (NOT SEEN) /HPF Ur Squamous Epith Cells Few H (NEGATIVE) /HPF Urine Bacteria Few H (NEGATIVE) /HPF Urine Mucus Few H (NEGATIVE) /LPF Meds: Medications Discontinued Medications Generic Name Dose Route Start Last Admin Trade Name Freq PRN Reason Stop Dose Admin Ceftriaxone Sodium 1 gm 05/19/18 20:55 05/19/18 21:01 Rocephin IVPUSH 05/19/18 20:56 1 gm STAT ONE Administration Hydromorphone HCl 1 mg 05/19/18 19:53 05/19/18 20:15 Dilaudid IVPUSH 05/19/18 19:54 1 mg ONETIME ONE Administration Hydromorphone HCl 1 mg 05/19/18 22:05 05/19/18 22:17 Dilaudid IVPUSH 05/19/18 22:06 1 mg ONETIME ONE Administration Sodium Chloride 1,000 mls @ 999 mls/hr 05/19/18 19:50 05/19/18 20:41 Normal Saline IV 05/19/18 20:50 999 mls/hr ONETIME ONE Administration Ondansetron HCl 4 mg 05/19/18 19:54 05/19/18 20:19 Zofran IVPUSH 05/19/18 19:55 4 mg ONETIME ONE Administration Departure - Departure Time of Disposition: 22:23 Disposition: DC/Tfer to Acute Hospital 02 Condition: Good Clinical Impression: Sepsis DVT (deep venous thrombosis) Qualifiers: DVT location: lower extremity Affected thrombotic vein of extremity: unspecified vein of extremity Chronicity: acute Laterality: right Qualified Code (s): I82.401 - Acute embolism and thrombosis of unspecified deep veins of right lower extremity - Discharge Information Referrals: Avila Aaron MD [Primary Care Provider] - Forms: ED Department Discharge, Interfacility Transfer EMTALA - My Orders Last 24 Hours: My Active Orders 05/19/18 19:50 Chest 1V Frontal [CR] Stat 05/19/18 19:54 Blood Culture x2 Reflex Set [OM.PC] Stat 05/19/18 20:00 CULTURE BLOOD [BC] Stat 05/19/18 20:05 CULTURE BLOOD [BC] Stat - Assessment/Plan Last 24 Hours: My Active Orders 05/19/18 19:50 Chest 1V Frontal [CR] Stat 05/19/18 19:54 Blood Culture x2 Reflex Set [OM.PC] Stat 05/19/18 20:00 CULTURE BLOOD [BC] Stat 05/19/18 20:05 CULTURE BLOOD [BC] Stat
== END 2018-05-19 22:23 | disposition short-term general hospital (02) ==
LOC: VM.ED 19:32
DX: A41.9 Sepsis, unspecified organism (principal); I82.401 Acute embolism and thrombosis of unspecified deep veins of right lower extremity; I10 Essential (primary) hypertension; E11.40 Type 2 diabetes mellitus with diabetic neuropathy, unspecified; Z88.6 Allergy status to analgesic agent; Z79.899 Other long term (current) drug therapy; Z79.82 Long term (current) use of aspirin
CPT/HCPCS: 36415; 71045; 80053; 81001; 82550; 82962; 83605; 85025; 85610; 85730; 86140; 87040; 96361; 96374; 96375; 96376; 99285; J0696; J1170; J2405; J7030

== ENCOUNTER 2018-09-18 15:26 | Inpatient (IN) | payer MEDICAID, SELFPAY ==
[2018-09-18] MEDS ORDERED: cefTRIAXone 1 GM Vial IVPUSH ONE (15:53)
[2018-09-18] MEDS ORDERED: Sodium Chloride 0.9% 1,000 ML IV ONE (15:53)
[2018-09-18] MEDS ORDERED: Acetaminophen 500 MG Tab PO ONE (16:05)
[2018-09-18 16:24] LABS: CHLORIDE,CL 98 mmol/L (98-107); SODIUM,NA 135 mmol/L (136-145)
--- NOTE | 2018-09-18 16:26 | EDM.PDOC ---
ED HPI GENERAL MEDICAL PROBLEM - General Chief Complaint: Skin Complaint Stated Complaint: Right foot pain and swelling Time Seen by Provider: 09/18/18 15:26 Source of Information: Reports: Patient, Old Records, RN, RN Notes Reviewed History Limitations: Reports: No Limitations - History of Present Illness INITIAL COMMENTS - FREE TEXT/NARRATIVE: Patient presents to the ED at [facility] complaining of worsening right foot pain, right LE swelling and erythema. Patient states she started having a diabetic right foot ulcer about 4 months ago. She has been seen by Podiatry and her PCP. Patient states she noticed over the past couple of days, worsening symptoms. She has been wearing a CAM walker, but this is no longer helping. She states she has chills and possibly a fever. It is painful to bare weight on the RLE. Patient states she has been cleaning the wound daily. Over the past couple of days she states there has been a purulent, foul smelling drainage. Onset: Unknown/Unsure Right Feet Pain Score (Numeric/FACES): 7 - Related Data Allergies Allergy/AdvReac Type Severity Reaction Status Date / Time ibuprofen AdvReac Stomach Verified 09/18/18 15:43 Upset Home Meds: Home Meds Lurasidone HCl [Latuda] 120 mg PO DAILY 04/17/17 [History] atorvaSTATin [Lipitor] 10 mg PO BEDTIME 07/09/17 [History] Omeprazole 20 mg PO DAILY 02/12/18 [History] amLODIPine Besylate [Norvasc] 10 mg PO DAILY 02/12/18 [History] Dextrose [Glucose] 16 gm PO ASDIRECTED PRN 02/13/18 [History] Sertraline [Zoloft] 200 mg PO DAILY tablet 02/16/18 [Rx] Insulin Glarg,Human.Rec.Analog [Lantus] 35 unit SUBCUT BEDTIME 03/06/18 [History ] Insulin Lispro [Humalog Kwikpen U-100] 5 unit SQ TIDMEALS 03/06/18 [History] rOPINIRole HCl [Requip] 0.25 mg PO BEDTIME 03/06/18 [History] Acetaminophen [Tylenol Extra Strength] 1,000 mg PO Q6H PRN 04/25/18 [History] Gabapentin [Neurontin] 300 mg PO BID 04/25/18 [History] Aspirin [Ecotrin] 81 mg PO DAILY 05/13/18 [History] Buprenorphine HCl/Naloxone HCl [Zubsolv 11.4-2.9 mg Tablet Sl] 1 each SL DAILY 05/13/18 [History] Buprenorphine HCl/Naloxone HCl [Zubsolv 11.4-2.9 mg Tablet Sl] 2 each SL DAILY 05/14/18 [Rx] Enoxaparin Sodium [Lovenox] 75 mg SQ BID #7 ml 05/14/18 [Rx] Enoxaparin [Lovenox] 75 mg SUBCUT Q12H #7 syringe 05/14/18 [Rx] Insulin Lispro [Humalog] 5 unit SUBCUT TIDMEALS pen 05/14/18 [Rx] Magnesium Oxide 400 mg PO BID 5 Days #10 tablet 05/14/18 [Rx] Meclizine [Antivert] 25 mg PO Q6H PRN 3 Days #12 tablet 05/14/18 [Rx] Nicotine [Habitrol] 14 mg TRDERM DAILY 30 Days #0 patch 05/14/18 [Rx] Ondansetron [Zofran ODT] 4 mg PO Q4H PRN 4 Days #12 tab.dis 05/14/18 [Rx] Past Medical History HEENT History: Reports: Impaired Vision Cardiovascular History: Reports: Blood Clots/VTE/DVT, Hypertension Respiratory History: Reports: Other (See Below) Other Respiratory History: hx of acute respiratory failure Gastrointestinal History: Reports: Irritable Bowel Syndrome, PUD Other Gastrointestinal History: acid reflux Genitourinary History: Reports: Urinary Incontinence, Other (See Below) Other Genitourinary History: hx of UTI, hx of acute kidney injury Musculoskeletal History: Reports: Other (See Below) Other Musculoskeletal History: right foot drop Neurological History: Reports: Neuropathy, Diabetic Psychiatric History: Reports: Anxiety, Bipolar, PTSD, Other (See Below) Other Psychiatric History: chronic narcotic use Endocrine/Metabolic History: Reports: Diabetes, Type II, Other (See Below) Other Endocrine/Metabolic History: 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, hx of ketoacidosis Hematologic History: Reports: Other (See Below) - Past Surgical History GI Surgical History: Reports: Cholecystectomy, Other (See Below) Other GI Surgeries/Procedures: Esophagus/ stomach repair Musculoskeletal Surgical History: Reports: Hip Replacement, Other (See Below) Other Musculoskeletal Surgeries/Procedures:: hx of carpal tunnel repair Social & Family History - Family History Family Medical History: Noncontributory Other Psychiatric Family History: 2 brothers with substance abuse problems[ Endocrine/Metabolic: Reports: Diabetes, type II - Caffeine Use Caffeine Use: Reports: Coffee - Living Situation & Occupation Living situation: Reports: Occupation: Employed (has 2 children which she shares with jerry, mother has been living with her while she convalesces from DKA and mentla health issues. lizeth at [facility]) ED ROS GENERAL - Review of Systems Review Of Systems: See Below Constitutional: Reports: Fever, Chills Respiratory: Denies: Shortness of Breath, Cough Cardiovascular: Denies: Chest Pain, Palpitations Musculoskeletal: Reports: Foot Pain, Joint Pain Skin: Reports: Erythema, Wound Neurological: Reports: No Symptoms ED EXAM, SKIN/RASH Exam: See Below Exam Limited By: No Limitations General Appearance: Alert, No Apparent Distress Respiratory/Chest: No Respiratory Distress, Lungs Clear, Normal Breath Sounds Cardiovascular: Normal Peripheral Pulses, Regular Rate, Rhythm Peripheral Pulses: 2+: Radial (L), Radial (R) GI/Abdominal: Normal Bowel Sounds, Soft, Non-Tender Neurological: Alert, Oriented Skin: Warm, Dry, Decubitus, Erythema, Increased Warmth, Wound/Incision Location, Skin: Lower Extremity, Right Associated features: Warmth, Tenderness, Swelling Course - Vital Signs Last Recorded V/S: Last Vital Signs Temp 37.9 C 09/18/18 15:30 Pulse 110 H 09/18/18 15:30 Resp 16 09/18/18 15:30 BP 130/82 09/18/18 15:30 Pulse Ox 96 09/18/18 15:30 - Orders/Labs/Meds Orders: Active Orders 24 hr Category Date Time Status Admission Status [Patient Status] [ADT] Routine ADT 09/18/18 16:18 Active Dietary Supplements [RC] BIDMEALS Care 09/18/18 15:54 Active Foot wo Cont Rt [CT] Stat Exams 09/18/18 15:41 Ordered C-REACTIVE PROTEIN [CHEM] Stat Lab 09/18/18 15:50 Received COMPREHENSIVE METABOLIC PN,CMP [CHEM] Stat Lab 09/18/18 15:50 Received CULTURE BLOOD [BC] Stat Lab 09/18/18 15:50 Received CULTURE BLOOD [BC] Stat Lab 09/18/18 15:59 Received LACTIC ACID [CHEM] Stat Lab 09/18/18 15:50 Received MAGNESIUM [CHEM] Stat Lab 09/18/18 15:50 Received PROCALCITONIN [REF] Stat Lab 09/18/18 15:50 Received Sodium Chloride 0.9% [Normal Saline] 1,000 ml Med 09/18/18 15:53 Active IV ONETIME Sodium Chloride 0.9% [Saline Flush] Med 09/18/18 15:53 Active 10 ml FLUSH ASDIRECTED PRN Blood Culture x2 Reflex Set [OM.PC] Stat Oth 09/18/18 15:35 Ordered Peripheral IV Insertion Adult [OM.PC] Routine Oth 09/18/18 15:53 Ordered Medication Orders Sodium Chloride (Normal Saline) 1,000 mls @ 999 mls/hr IV ONETIME ONE Stop: 09/18/18 16:53 Last Admin: 09/18/18 16:05 Dose: 999 mls/hr Sodium Chloride (Saline Flush) 10 ml FLUSH ASDIRECTED PRN PRN Reason: Keep Vein Open Labs: Laboratory Tests 09/18/18 Range/Units 15:50 WBC 8.3 (4.0-10.0) x10^3/uL RBC 4.24 (4.00-5.50) x10^6/uL Hgb 12.2 (12.0-16.0) g/dL Hct 35.1 (33.0-47.0) % MCV 82.8 (78.0-93.0) fL MCH 28.8 (26.0-32.0) pg MCHC 34.8 (32.0-36.0) g/dL RDW Coeff of Roderick 13.2 (10.0-15.0) % Plt Count 297 (130-400) x10^3/uL Neut % (Auto) 78.1 (50.0-80.0) % Lymph % (Auto) 14.6 L (25.0-50.0) % [place] % (Auto) 4.6 (2.0-11.0) % Eos % (Auto) 2.2 (0.0-4.0) % Baso % (Auto) 0.5 (0.2-1.2) % Meds: Medications Generic Name Dose Route Start Last Admin Trade Name Freq PRN Reason Stop Dose Admin Sodium Chloride 1,000 mls @ 999 mls/hr 09/18/18 15:53 09/18/18 16:05 Normal Saline IV 09/18/18 16:53 999 mls/hr ONETIME ONE Administration Sodium Chloride 10 ml 09/18/18 15:53 Saline Flush FLUSH ASDIRECTED PRN Keep Vein Open Discontinued Medications Generic Name Dose Route Start Last Admin Trade Name Freq PRN Reason Stop Dose Admin Acetaminophen 1,000 mg 09/18/18 16:05 09/18/18 16:09 Tylenol Extra Strength PO 09/18/18 16:06 1,000 mg ONETIME ONE Administration Ceftriaxone Sodium 1 gm 09/18/18 15:53 09/18/18 16:05 Rocephin IVPUSH 09/18/18 15:54 1 gm STAT ONE Administration Departure - Departure Time of Disposition: 16:26 Disposition: Admitted As Inpatient 66 Condition: Good Clinical Impression: Diabetic infection of right foot Fever Qualifiers: Fever type: unspecified Qualified Code(s): R50.9 - Fever, unspecified Cellulitis Qualifiers: Site of cellulitis: extremity Site of cellulitis of extremity: lower extremity Laterality: right Qualified Code(s): L03.115 - Cellulitis of right lower limb - Discharge Information - Problem List Review Problem List Initiated/Reviewed/Updated: Yes - My Orders Last 24 Hours: My Active Orders 09/18/18 15:35 Blood Culture x2 Reflex Set [OM.PC] Stat 09/18/18 15:41 Foot wo Cont Rt [CT] Stat 09/18/18 15:50 C-REACTIVE PROTEIN [CHEM] Stat COMPREHENSIVE METABOLIC PN,CMP [CHEM] Stat CULTURE BLOOD [BC] Stat LACTIC ACID [CHEM] Stat MAGNESIUM [CHEM] Stat PROCALCITONIN [REF] Stat 09/18/18 15:53 Sodium Chloride 0.9% [Normal Saline] 1,000 ml IV ONETIME Sodium Chloride 0.9% [Saline Flush] 10 ml FLUSH ASDIRECTED PRN Peripheral IV Insertion Adult [OM.PC] Routine 09/18/18 15:54 Dietary Supplements [RC] BIDMEALS 09/18/18 15:59 CULTURE BLOOD [BC] Stat 09/18/18 16:18 Admission Status [Patient Status] [ADT] Routine - Assessment/Plan Admission H&P: Please use this note as an admission H&P Last 24 Hours: My Active Orders 09/18/18 15:35 Blood Culture x2 Reflex Set [OM.PC] Stat 09/18/18 15:41 Foot wo Cont Rt [CT] Stat 09/18/18 15:50 C-REACTIVE PROTEIN [CHEM] Stat COMPREHENSIVE METABOLIC PN,CMP [CHEM] Stat CULTURE BLOOD [BC] Stat LACTIC ACID [CHEM] Stat MAGNESIUM [CHEM] Stat PROCALCITONIN [REF] Stat 09/18/18 15:53 Sodium Chloride 0.9% [Normal Saline] 1,000 ml IV ONETIME Sodium Chloride 0.9% [Saline Flush] 10 ml FLUSH ASDIRECTED PRN Peripheral IV Insertion Adult [OM.PC] Routine 09/18/18 15:54 Dietary Supplements [RC] BIDMEALS 09/18/18 15:59 CULTURE BLOOD [BC] Stat 09/18/18 16:18 Admission Status [Patient Status] [ADT] Routine Assessment:: Infection of diabetic food ulcer Cellulitis Fever Plan: Patient will be admitted acute for IVF and abx therapy. Given assessment findings and presentation, anticipate admission 3-4 days. Patient agrees with admission and POC. Will obtain CT of right foot to r/o and other pathology.
[2018-09-18 16:29] LABS: ANION GAP 13.9 mmol/L (10-20)
[2018-09-18] MEDS ORDERED: Sodium Chloride 0.9% 500 ML IV SCH (17:00)
[2018-09-18] MEDS ORDERED: Acetaminophen 500 MG Tab PO PRN (17:07)
[2018-09-18] MEDS ORDERED: DEXTROSE PO PRN (17:07)
[2018-09-18] MEDS ORDERED: [UNRECOGNIZED DRUG - OTHER] PO PRN (17:07)
[2018-09-18] MEDS ORDERED: Insulin Lispro 100 Unit/ML 3 ML KwikPen SUBCUT SCH (17:15)
[2018-09-18] MEDS ORDERED: Magnesium Sulfate/Water 2 GM in Premix Bag 1 BAG IV ONE (17:15)
[2018-09-18] MEDS: Enoxaparin 40 MG/0.4 ML Syringe SUBCUT SCH (17:32)
--- NOTE | 2018-09-18 17:34 | CT ---
[id number] CT/CT Foot Right WO IV EXAM: RIGHT FOOT CT WITHOUT CONTRAST. INDICATION: SWELLING, PAIN, HEEL ULCER, ERYTHEMA. COMPARISON: May 13, 2018. DISCUSSION: Identified is a plantar ulcer at the level of the posterior calcaneus with adjacent subcutaneous edema. No drainable collection is identified. No cortical destruction or other CT evidence of osteomyelitis. There are [id number] degenerative changes in the hindfoot, midfoot and first metatarsophalangeal joints. No fracture or dislocation is identified. There is a tiny plantar calcaneal spur and a small enthesophyte at the Achilles insertion site on the calcaneus. IMPRESSION: 1. Soft tissue plantar ulcer adjacent to the calcaneus with inflammatory changes extending to the cortical surface. No CT evidence of drainable abscess or osteomyelitis. If continued clinical concern, MRI could be considered for further evaluation. Ras Wu DO 09/18/18 1733 Thank you for allowing us to participate in the care of your patient.
[2018-09-18] MEDS ORDERED: [UNRECOGNIZED DRUG - OTHER] PO ONE (17:40)
[2018-09-18] MEDS ORDERED: Glucose Gel 15 GM in 37.5 GM Tube PO ONE (17:40)
[2018-09-18] MEDS ORDERED: DEXTROSE PO ONE (17:40)
[2018-09-18] MEDS: Insulin Lispro 100 Unit/ML 3 ML KwikPen SUBCUT SCH (18:07)
[2018-09-18] MEDS: HYDROmorphone 1 MG/ML Syringe IVPUSH PRN ×2 (18:08→22:41)
[2018-09-18] MEDS: rOPINIRole 0.5 MG Tab PO SCH (20:11)
[2018-09-18] MEDS: Mirtazapine 30 MG Tab PO SCH (20:11)
[2018-09-18] MEDS: atorvaSTATin 10 MG Tab PO SCH (20:11)
[2018-09-18] MEDS: Gabapentin 300 MG Cap PO SCH (20:11)
[2018-09-18] MEDS: Ondansetron 4 MG Tab.DIS PO PRN (20:12)
[2018-09-18] MEDS: Sodium Chloride 0.9% 1,000 ML IV SCH (21:30)
[2018-09-18] MEDS: Sodium Chloride 0.9% 10 ML Syringe FLUSH PRN (22:42)
[2018-09-19] MEDS: HYDROmorphone 1 MG/ML Syringe IVPUSH PRN ×4 (04:12→17:19)
[2018-09-19] MEDS: Sodium Chloride 0.9% 10 ML Syringe FLUSH PRN (04:12)
[2018-09-19] MEDS: Sodium Chloride 0.9% 1,000 ML IV SCH ×3 (04:13→23:35)
[2018-09-19] MEDS: Omeprazole 20 MG Cap.CR PO SCH (06:08)
[2018-09-19] MEDS ORDERED: Insulin Lispro 100 Unit/ML 3 ML KwikPen SUBCUT SCH (07:00)
[2018-09-19 07:28] LABS: CHLORIDE,CL 108 mmol/L (98-107); SODIUM,NA 143 mmol/L (136-145)
[2018-09-19 07:36] LABS: ANION GAP 11.2 mmol/L (10-20)
[2018-09-19] MEDS ORDERED: Insulin Glargine,Human Rec. Analog 100 Units/ML 3 ML Pen SUBCUT SCH (08:00)
[2018-09-19] MEDS: Enoxaparin 40 MG/0.4 ML Syringe SUBCUT SCH (08:35)
[2018-09-19] MEDS: Mirtazapine 30 MG Tab PO SCH (08:35)
[2018-09-19] MEDS: rOPINIRole 0.5 MG Tab PO SCH ×4 (08:35→19:48)
[2018-09-19] MEDS: Gabapentin 300 MG Cap PO SCH ×2 (08:35→19:48)
[2018-09-19] MEDS: Insulin Lispro 100 Unit/ML 3 ML KwikPen SUBCUT SCH ×3 (08:36→17:19)
[2018-09-19] MEDS: amLODIPine 10 MG Tab PO SCH (08:40)
[2018-09-19] MEDS: Sertraline 100 MG Tab PO SCH (08:40)
[2018-09-19] MEDS: cefTRIAXone 1 GM Vial IVPUSH SCH (08:41)
[2018-09-19] MEDS: Insulin Glargine,Human Rec. Analog 100 Units/ML 3 ML Pen SUBCUT SCH (08:59)
[2018-09-19] MEDS ORDERED: Ondansetron 4 MG/2 ML SDV IVPUSH PRN (09:00)
[2018-09-19] MEDS: Ondansetron 4 MG Tab.DIS PO PRN (09:26)
--- NOTE | 2018-09-19 10:07 | PCM.PN ---
- General Info Date of Service: 09/19/18 Admission Dx/Problem (Free Text): History: Listed in chart as type 2 diabetes, but at her endocrinology consult 1 month ago , her C-peptide level is negligible so he said she can be considered type I. Her control was poor, one of the changes he made was to switch her to Tresiba 20 units, but her formulary denied it and she is back on Lantus 35 units, plus Humalog. She has poor sensation in her feet, developed a pressure area on her R heel, she says about 4 months ago and it is not improving, indeed came to the ER because her R lower leg was more swollen, more painful, tender and red. She is getting Rocephin along with bedrest, had a little fever in the ER but her lab is normal. Her fasting blood sugars are still in the low 200s. She had been continuing to smoke and is requesting a nicotine patch now. She is on Suboxone for chronic opioid dependence, that was not available to her so she is getting p.r.n. IV Dilaudid now. Says someone will bring in her Suboxone this evening so she can switch to that then. HELADIO has suggested in his notes that amputation might be a possibility, he is recommending that she be in [facility] to try to heal the ulcer first, she says that insurance denied that also. Emergency Preparedness Manager at [facility] will be working on that also. She does have 2 children at home, about age 6 and 9, someone else is helping with them and they get some visits with patients estranged . She missed her appointment in [place] this morning with Horse Exerciser, says she is supposed to see Manufacturing Production Technician in 2 days also. 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 -Diabetes poorly controlled, including her fasting levels so her Lantus can be increased -Hx opioid abuse, on Suboxone, says she can switch back to that this evening -Cigarette smoker, requests nicotine skin patch -She probably will indeed need Swing Bed and fci to get it healed Plan: -Nicotine skin patch 21 mg -Increase Lantus from 35 up to 40 units -HELADIO will follow starting tomorrow -Switch to Suboxone again per directions on her bottle as soon as it is available - Patient Data Vitals - Most Recent: Last Vital Signs Temp 36.8 C 09/19/18 09:58 Pulse 74 09/19/18 09:58 Resp 16 09/19/18 09:58 BP 117/67 09/19/18 09:58 Pulse Ox 96 09/19/18 09:58 Weight - Most Recent: 83.915 kg I&O - Last 24 Hours: Intake & Output 09/18/18 09/19/18 09/19/18 22:59 06:59 14:59 Intake Total 1529 1347 Output Total 1700 600 Balance -171 1347 -600 Lab Results Last 24 Hours: Laboratory Results - last 24 hr 09/18/18 09/18/18 09/18/18 Range/Units 15:50 15:50 15:50 WBC 8.3 (4.0-10.0) x10^3/uL RBC 4.24 (4.00-5.50) x10^6/uL Hgb 12.2 (12.0-16.0) g/dL Hct 35.1 (33.0-47.0) % MCV 82.8 (78.0-93.0) fL MCH 28.8 (26.0-32.0) pg MCHC 34.8 (32.0-36.0) g/dL RDW Coeff of Roderick 13.2 (10.0-15.0) % Plt Count 297 (130-400) x10^3/uL Neut % (Auto) 78.1 (50.0-80.0) % Lymph % (Auto) 14.6 L (25.0-50.0) % [place] % (Auto) 4.6 (2.0-11.0) % Eos % (Auto) 2.2 (0.0-4.0) % Baso % (Auto) 0.5 (0.2-1.2) % Sodium 135 L (136-145) mmol/L Potassium 3.9 (3.5-5.1) mmol/L Chloride 98 (98-107) mmol/L Carbon Dioxide 27 (21-32) mmol/L Anion Gap 13.9 (10-20) mmol/L BUN 8 (7-18) mg/dL Creatinine 0.6 (0.55-1.02) mg/dL Est Cr Clr Drug Dosing 135.46 mL/min Estimated GFR (MDRD) > 60 Glucose 352 H (74-106) mg/dL POC Glucose (74-106) mg/dL Lactic Acid 1.1 (0.4-2.0) mmol/L Calcium 8.8 (8.5-10.1) mg/dL Corrected Calcium 9.36 (8.5-10.1) mg/dL Magnesium 1.6 L (1.8-2.4) mg/dL Total Bilirubin 0.5 (0.2-1.0) mg/dL AST 13 L (15-37) U/L ALT 24 (14-59) U/L Alkaline Phosphatase 145 H (46-116) U/L C-Reactive Protein 8.4 H (<=0.9) mg/dL Total Protein 7.2 (6.4-8.2) g/dL Albumin 3.3 L (3.4-5.0) g/dL Globulin 3.9 Albumin/Globulin Ratio 0.85 09/18/18 09/18/18 09/19/18 Range/Units 17:30 20:09 06:08 WBC (4.0-10.0) x10^3/uL RBC (4.00-5.50) x10^6/uL Hgb (12.0-16.0) g/dL Hct (33.0-47.0) % MCV (78.0-93.0) fL MCH (26.0-32.0) pg MCHC (32.0-36.0) g/dL RDW Coeff of Roderick (10.0-15.0) % Plt Count (130-400) x10^3/uL Neut % (Auto) (50.0-80.0) % Lymph % (Auto) (25.0-50.0) % [place] % (Auto) (2.0-11.0) % Eos % (Auto) (0.0-4.0) % Baso % (Auto) (0.2-1.2) % Sodium (136-145) mmol/L Potassium (3.5-5.1) mmol/L Chloride (98-107) mmol/L Carbon Dioxide (21-32) mmol/L Anion Gap (10-20) mmol/L BUN (7-18) mg/dL Creatinine (0.55-1.02) mg/dL Est Cr Clr Drug Dosing mL/min Estimated GFR (MDRD) Glucose (74-106) mg/dL POC Glucose 319 H 209 H 208 H (74-106) mg/dL Lactic Acid (0.4-2.0) mmol/L Calcium (8.5-10.1) mg/dL Corrected Calcium (8.5-10.1) mg/dL Magnesium (1.8-2.4) mg/dL Total Bilirubin (0.2-1.0) mg/dL AST (15-37) U/L ALT (14-59) U/L Alkaline Phosphatase (46-116) U/L C-Reactive Protein (<=0.9) mg/dL Total Protein (6.4-8.2) g/dL Albumin (3.4-5.0) g/dL Globulin Albumin/Globulin Ratio 09/19/18 09/19/18 Range/Units 06:50 06:50 WBC 5.3 (4.0-10.0) x10^3/uL RBC 3.85 L (4.00-5.50) x10^6/uL Hgb 11.0 L (12.0-16.0) g/dL Hct 32.6 L (33.0-47.0) % MCV 84.7 (78.0-93.0) fL MCH 28.6 (26.0-32.0) pg MCHC 33.7 (32.0-36.0) g/dL RDW Coeff of Roderick 13.4 (10.0-15.0) % Plt Count 282 (130-400) x10^3/uL Neut % (Auto) 58.4 (50.0-80.0) % Lymph % (Auto) 28.4 (25.0-50.0) % [place] % (Auto) 6.4 (2.0-11.0) % Eos % (Auto) 5.5 H (0.0-4.0) % Baso % (Auto) 1.3 H (0.2-1.2) % Sodium 143 (136-145) mmol/L Potassium 4.2 (3.5-5.1) mmol/L Chloride 108 H (98-107) mmol/L Carbon Dioxide 28 (21-32) mmol/L Anion Gap 11.2 (10-20) mmol/L BUN 9 (7-18) mg/dL Creatinine 0.5 L (0.55-1.02) mg/dL Est Cr Clr Drug Dosing 162.56 mL/min Estimated GFR (MDRD) > 60 Glucose 211 H (74-106) mg/dL POC Glucose (74-106) mg/dL Lactic Acid (0.4-2.0) mmol/L Calcium 8.3 L (8.5-10.1) mg/dL Corrected Calcium (8.5-10.1) mg/dL Magnesium 2.0 (1.8-2.4) mg/dL Total Bilirubin (0.2-1.0) mg/dL AST (15-37) U/L ALT (14-59) U/L Alkaline Phosphatase (46-116) U/L C-Reactive Protein (<=0.9) mg/dL Total Protein (6.4-8.2) g/dL Albumin (3.4-5.0) g/dL Globulin Albumin/Globulin Ratio Med Orders - Current: Current Medications Acetaminophen (Tylenol Extra Strength) 1,000 mg PO Q6H PRN PRN Reason: Pain Amlodipine Besylate (Norvasc) 10 mg PO DAILY [facility] Last Admin: 09/19/18 08:40 Dose: 10 mg Atorvastatin Calcium (Lipitor) 10 mg PO BEDTIME [facility] Last Admin: 09/18/18 20:11 Dose: 10 mg Ceftriaxone Sodium (Rocephin) 1 gm IVPUSH DAILY [facility] Last Admin: 09/19/18 08:41 Dose: 1 gm Enoxaparin Sodium (Lovenox) 40 mg SUBCUT DAILY [facility] Last Admin: 09/19/18 08:35 Dose: 40 mg Gabapentin (Neurontin) 300 mg PO BID [facility] Last Admin: 09/19/18 08:35 Dose: 300 mg Hydromorphone HCl (Dilaudid) 0.25 mg IVPUSH Q4H PRN PRN Reason: Pain Last Admin: 09/19/18 08:48 Dose: 0.25 mg Sodium Chloride (Normal Saline) 1,000 mls @ 100 mls/hr IV ASDIRECTED [facility] Last Admin: 09/19/18 04:13 Dose: 100 mls/hr Insulin Glargine (Lantus Solostar) 40 units SUBCUT DAILY [facility] Last Admin: 09/19/18 08:59 Dose: Not Given Insulin Human Lispro (Humalog) 0 unit SUBCUT TIDMEALS [facility]; Protocol Last Admin: 09/19/18 08:36 Dose: 2 units Mirtazapine (Remeron) 30 mg PO DAILY [facility] Last Admin: 09/19/18 08:35 Dose: 30 mg Nicotine (Habitrol) 21 mg TRDERM DAILY [facility] Non-Formulary Medication (Lurasidone Hcl [Latuda]) 120 mg PO DAILY [facility] Omeprazole (Omeprazole) 20 mg PO DAILY@0700 [facility] Last Admin: 09/19/18 06:08 Dose: 20 mg Ondansetron HCl (Zofran Odt) 4 mg PO Q6H PRN PRN Reason: nausea, able to take PO Last Admin: 09/19/18 09:26 Dose: 4 mg Ondansetron HCl (Zofran) 4 mg IVPUSH Q6H PRN PRN Reason: Nausea Ropinirole HCl (Requip) 0.5 mg PO TID [facility] Last Admin: 09/19/18 08:35 Dose: 0.5 mg Sertraline HCl (Zoloft) 200 mg PO DAILY [facility] Last Admin: 09/19/18 08:40 Dose: 200 mg Sodium Chloride (Saline Flush) 10 ml FLUSH ASDIRECTED PRN PRN Reason: Keep Vein Open Last Admin: 09/19/18 04:12 Dose: 10 ml Discontinued Medications Acetaminophen (Tylenol Extra Strength) 1,000 mg PO ONETIME ONE Stop: 09/18/18 16:06 Last Admin: 09/18/18 16:09 Dose: 1,000 mg Ceftriaxone Sodium (Rocephin) 1 gm IVPUSH STAT ONE Stop: 09/18/18 15:54 Last Admin: 09/18/18 16:05 Dose: 1 gm Dextrose (Glutose 15) 15 gm PO ONETIME ONE Stop: 09/18/18 17:41 Last Admin: 09/18/18 17:47 Dose: Not Given Sodium Chloride (Normal Saline) 1,000 mls @ 999 mls/hr IV ONETIME ONE Stop: 09/18/18 16:53 Last Admin: 09/18/18 16:05 Dose: 999 mls/hr Sodium Chloride (Normal Saline) 500 mls @ 100 mls/hr IV ASDIRECTED VIVIANA Magnesium Sulfate 2 gm/ Premix 50 mls @ 25 mls/hr IV ONETIME ONE Stop: 09/18/18 19:14 Last Admin: 09/18/18 17:27 Dose: 25 mls/hr Insulin Glargine (Lantus Solostar) 35 units SUBCUT DAILY [facility] Last Admin: 09/19/18 08:36 Dose: 40 units Insulin Human Lispro (Humalog) 0 unit SUBCUT TIDAC [facility] Non-Formulary Medication (Dextrose [Glucose]) 16 gm PO ASDIRECTED PRN PRN Reason: Hypoglycemia Non-Formulary Medication (Dextrose [Glucose]) 16 gm PO ONETIME ONE Stop: 09/18/18 17:41 - Problem List Review Problem List Initiated/Reviewed/Updated: Yes - My Orders Last 24 Hours: My Active Orders 09/19/18 08:45 Insulin Glarg,Human.Rec.Analog [LantUS Solostar] 40 units SUBCUT DAILY Nicotine [Habitrol] 21 mg TRDERM DAILY 09/19/18 09:00 Ondansetron [Zofran] 4 mg IVPUSH Q6H PRN
[2018-09-19] MEDS: Nicotine 21 MG/24 Hr Patch TRDERM SCH (10:57)
[2018-09-19] MEDS: atorvaSTATin 10 MG Tab PO SCH (19:48)
[2018-09-19] MEDS ORDERED: BUPRENORPHINE SL SCH (20:00)
[2018-09-19] MEDS ORDERED: NALOXONE SL SCH (20:00)
[2018-09-20] MEDS: Ondansetron 4 MG Tab.DIS PO PRN (05:43)
[2018-09-20] MEDS: Omeprazole 20 MG Cap.CR PO SCH (06:34)
[2018-09-20] MEDS ORDERED: NALOXONE SUBCUT SCH (08:00)
[2018-09-20] MEDS ORDERED: BUPRENORPHINE SUBCUT SCH (08:00)
[2018-09-20] MEDS ORDERED: NALOXONE SL SCH (08:00)
[2018-09-20] MEDS ORDERED: BUPRENORPHINE SL SCH (08:00)
[2018-09-20] MEDS: Nicotine 21 MG/24 Hr Patch TRDERM SCH (08:16)
[2018-09-20] MEDS: Insulin Glargine,Human Rec. Analog 100 Units/ML 3 ML Pen SUBCUT SCH (08:17)
[2018-09-20] MEDS: Sertraline 100 MG Tab PO SCH (08:18)
[2018-09-20] MEDS: cefTRIAXone 1 GM Vial IVPUSH SCH (08:18)
[2018-09-20] MEDS: Sodium Chloride 0.9% 10 ML Syringe FLUSH PRN (08:18)
[2018-09-20] MEDS: Insulin Lispro 100 Unit/ML 3 ML KwikPen SUBCUT SCH ×2 (08:19→13:02)
[2018-09-20] MEDS: Gabapentin 300 MG Cap PO SCH (08:19)
[2018-09-20] MEDS: rOPINIRole 0.5 MG Tab PO SCH ×2 (08:20→13:02)
[2018-09-20] MEDS: Mirtazapine 30 MG Tab PO SCH (08:20)
[2018-09-20] MEDS: amLODIPine 10 MG Tab PO SCH (08:21)
[2018-09-20] MEDS: Enoxaparin 40 MG/0.4 ML Syringe SUBCUT SCH (08:22)
[2018-09-20 10:26] LABS: ANION GAP 11.7 mmol/L (10-20); CHLORIDE,CL 109 mmol/L (98-107); SODIUM,NA 146 mmol/L (136-145)
[2018-09-20 10:52] LABS: HEMOGLOBIN A1C 10.7 % (4.5-6.2)
[2018-09-20] MEDS: Non-Formulary Medication 1 Each (Lurasidone Hcl [Latuda] 120 MG) PO SCH ×2 (13:49→13:50)
[2018-09-20 14:41] VITALS: BP 117/64
--- NOTE | 2018-09-20 15:31 | PCM.DCSUM1 ---
Discharge Summary - Hospital Course Free Text/Narrative:: Admitted for probable cellulitis LLE. Reported red, warm, swollen. Didn't see her but doesn't sound severe - WBC, temp, procalcitonin were all normal. Quick improvement on rocephin. Request to be d/c. Discharge home today. Suboxone appointment in the morning. Continue wound cares at home, keep clean and covered, avoid placing any weight on this. Follow-up with podiatry here on for recheck diabetic ulcer. Discuss possible total contact cast which can aid with healing of chronic wound. We will get an ultrasound tomorrow to rule out any clot given history of this but does not seem likely at this time. Did receive blood thinner Lovenox in the hospital. Infection otherwise seems greatly improved, CRP trending downward, pro- calcitonin was negative, afebrile with normal white count here. Received Rocephin IV here, prescription for oral Keflex sent to pharmacy. Follow-up with switchman in approximately 10 days for recheck of diabetes , A1c still high at 10.7. Quitting smoking would also be important for long-term health given already having complications of diabetes. Diagnosis: Stroke: No - Discharge Data Discharge Date: 09/20/18 Discharge Disposition: Home, Self-Care 01 Condition: Good - Patient Summary/Data Consults: Consultations 09/18/18 16:47 Consult to Case Management/Offset Lithographic Press Operator [CONS] Routine PT Evaluation and Treatment [CONS] Routine - Discharge Plan *PRESCRIPTION DRUG MONITORING PROGRAM REVIEWED*: No *COPY OF PRESCRIPTION DRUG MONITORING REPORT IN PATIENT ISHAN: No Prescriptions/Med Rec: Cephalexin [Keflex] 500 mg PO TID #15 capsule Home Medications: Home Meds Lurasidone HCl [Latuda] 120 mg PO DAILY 04/17/17 [History] atorvaSTATin [Lipitor] 10 mg PO BEDTIME 07/09/17 [History] Omeprazole 20 mg PO DAILY 02/12/18 [History] amLODIPine Besylate [Norvasc] 10 mg PO DAILY 02/12/18 [History] Dextrose [Glucose] 16 gm PO ASDIRECTED PRN 02/13/18 [History] Sertraline [Zoloft] 200 mg PO DAILY tablet 02/16/18 [Rx] Acetaminophen [Tylenol Extra Strength] 1,000 mg PO Q6H PRN 04/25/18 [History] Gabapentin [Neurontin] 300 mg PO BID 04/25/18 [History] Ondansetron [Zofran ODT] 4 mg PO Q4H PRN 4 Days #12 tab.dis 05/14/18 [Rx] Insulin Glarg,Human.Rec.Analog [Lantus] 35 units SUBCUT DAILY 09/18/18 [History] Insulin Lispro [Humalog] 1 unit SUBCUT ASDIRECTED 09/18/18 [History] Mirtazapine 30 mg PO BEDTIME 09/18/18 [History] rOPINIRole [Requip] 0.5 mg PO TID 09/19/18 [History] Buprenorphine HCl/Naloxone HCl [Buprenorphin-Naloxon 8-2 mg Sl] 1 tab SL BEDTIME 09/20/18 [History] Buprenorphine HCl/Naloxone HCl [Buprenorphin-Naloxon 8-2 mg Sl] 1.5 tab SL DAILY 09/20/18 [History] Cephalexin [Keflex] 500 mg PO TID #15 capsule 09/20/18 [Rx] Nicotine [Habitrol] 21 mg TRDERM DAILY patch 09/20/18 [Rx] Non-Formulary Medication [NF Drug] 0 each SL BEDTIME each 09/20/18 [Rx] Non-Formulary Medication [NF Drug] 1.5 each SL DAILY each 09/20/18 [Rx] rOPINIRole [Requip] 0.5 mg PO TID tablet 09/20/18 [Rx] - Discharge Summary/Plan Comment DC Time >30 min.: No - Patient Data Vitals - Most Recent: Last Vital Signs Temp 37.1 C 09/20/18 14:00 Pulse 97 09/20/18 14:00 Resp 18 09/20/18 14:00 BP 117/64 09/20/18 14:00 Pulse Ox 96 09/20/18 14:00 Weight - Most Recent: 83.915 kg I&O - Last 24 hours: Intake & Output 09/20/18 09/20/18 09/20/18 06:59 14:59 22:59 Intake Total 1800 1036 Output Total 900 1900 Balance 900 -864 Lab Results - Last 24 hrs: Laboratory Results - last 24 hr 09/18/18 09/19/18 09/19/18 Range/Units 15:50 10:55 12:58 WBC (4.0-10.0) x10^3/uL RBC (4.00-5.50) x10^6/uL Hgb (12.0-16.0) g/dL Hct (33.0-47.0) % MCV (78.0-93.0) fL MCH (26.0-32.0) pg MCHC (32.0-36.0) g/dL RDW Coeff of Roderick (10.0-15.0) % Plt Count (130-400) x10^3/uL Neut % (Auto) (50.0-80.0) % Lymph % (Auto) (25.0-50.0) % [place] % (Auto) (2.0-11.0) % Eos % (Auto) (0.0-4.0) % Baso % (Auto) (0.2-1.2) % ESR (0-21) mm/hr D-Dimer, Quantitative (<=0.58) mg/LFEU Sodium (136-145) mmol/L Potassium (3.5-5.1) mmol/L Chloride (98-107) mmol/L Carbon Dioxide (21-32) mmol/L Anion Gap (10-20) mmol/L BUN (7-18) mg/dL Creatinine (0.55-1.02) mg/dL Est Cr Clr Drug Dosing mL/min Estimated GFR (MDRD) Glucose (74-106) mg/dL POC Glucose 56 L 109 H (74-106) mg/dL Hemoglobin A1c (4.5-6.2) % Calcium (8.5-10.1) mg/dL C-Reactive Protein (<=0.9) mg/dL Procalcitonin <0.05 (<0.10) ng/mL 09/19/18 09/19/18 09/20/18 Range/Units 17:03 19:47 05:33 WBC (4.0-10.0) x10^3/uL RBC (4.00-5.50) x10^6/uL Hgb (12.0-16.0) g/dL Hct (33.0-47.0) % MCV (78.0-93.0) fL MCH (26.0-32.0) pg MCHC (32.0-36.0) g/dL RDW Coeff of Roderick (10.0-15.0) % Plt Count (130-400) x10^3/uL Neut % (Auto) (50.0-80.0) % Lymph % (Auto) (25.0-50.0) % [place] % (Auto) (2.0-11.0) % Eos % (Auto) (0.0-4.0) % Baso % (Auto) (0.2-1.2) % ESR (0-21) mm/hr D-Dimer, Quantitative (<=0.58) mg/LFEU Sodium (136-145) mmol/L Potassium (3.5-5.1) mmol/L Chloride (98-107) mmol/L Carbon Dioxide (21-32) mmol/L Anion Gap (10-20) mmol/L BUN (7-18) mg/dL Creatinine (0.55-1.02) mg/dL Est Cr Clr Drug Dosing mL/min Estimated GFR (MDRD) Glucose (74-106) mg/dL POC Glucose 120 H 190 H 114 H (74-106) mg/dL Hemoglobin A1c (4.5-6.2) % Calcium (8.5-10.1) mg/dL C-Reactive Protein (<=0.9) mg/dL Procalcitonin (<0.10) ng/mL 09/20/18 09/20/18 09/20/18 Range/Units 10:04 10:04 10:04 WBC 6.0 (4.0-10.0) x10^3/uL RBC 4.06 (4.00-5.50) x10^6/uL Hgb 11.5 L (12.0-16.0) g/dL Hct 34.2 (33.0-47.0) % MCV 84.2 (78.0-93.0) fL MCH 28.3 (26.0-32.0) pg MCHC 33.6 (32.0-36.0) g/dL RDW Coeff of Roderick 13.2 (10.0-15.0) % Plt Count 346 (130-400) x10^3/uL Neut % (Auto) 53.4 (50.0-80.0) % Lymph % (Auto) 35.3 (25.0-50.0) % [place] % (Auto) 5.8 (2.0-11.0) % Eos % (Auto) 4.3 H (0.0-4.0) % Baso % (Auto) 1.2 (0.2-1.2) % ESR 38 H (0-21) mm/hr D-Dimer, Quantitative 0.78 H (<=0.58) mg/LFEU Sodium 146 H (136-145) mmol/L Potassium 3.7 (3.5-5.1) mmol/L Chloride 109 H (98-107) mmol/L Carbon Dioxide 29 (21-32) mmol/L Anion Gap 11.7 (10-20) mmol/L BUN 8 (7-18) mg/dL Creatinine 0.4 L (0.55-1.02) mg/dL Est Cr Clr Drug Dosing 203.20 mL/min Estimated GFR (MDRD) > 60 Glucose 74 (74-106) mg/dL POC Glucose (74-106) mg/dL Hemoglobin A1c (4.5-6.2) % Calcium 8.6 (8.5-10.1) mg/dL C-Reactive Protein 2.8 H (<=0.9) mg/dL Procalcitonin (<0.10) ng/mL 09/20/18 Range/Units 10:04 WBC (4.0-10.0) x10^3/uL RBC (4.00-5.50) x10^6/uL Hgb (12.0-16.0) g/dL Hct (33.0-47.0) % MCV (78.0-93.0) fL MCH (26.0-32.0) pg MCHC (32.0-36.0) g/dL RDW Coeff of Roderick (10.0-15.0) % Plt Count (130-400) x10^3/uL Neut % (Auto) (50.0-80.0) % Lymph % (Auto) (25.0-50.0) % [place] % (Auto) (2.0-11.0) % Eos % (Auto) (0.0-4.0) % Baso % (Auto) (0.2-1.2) % ESR (0-21) mm/hr D-Dimer, Quantitative (<=0.58) mg/LFEU Sodium (136-145) mmol/L Potassium (3.5-5.1) mmol/L Chloride (98-107) mmol/L Carbon Dioxide (21-32) mmol/L Anion Gap (10-20) mmol/L BUN (7-18) mg/dL Creatinine (0.55-1.02) mg/dL Est Cr Clr Drug Dosing mL/min Estimated GFR (MDRD) Glucose (74-106) mg/dL POC Glucose (74-106) mg/dL Hemoglobin A1c 10.7 H (4.5-6.2) % Calcium (8.5-10.1) mg/dL C-Reactive Protein (<=0.9) mg/dL Procalcitonin (<0.10) ng/mL JONATHAN Results - Last 24 hrs: Microbiology 09/18/18 15:59 Aerobic Blood Culture - Preliminary Blood - Venous - Lab Draw NO GROWTH AFTER 1 DAY Anaerobic Blood Culture - Preliminary NO GROWTH AFTER 1 DAY 09/18/18 15:50 Aerobic Blood Culture - Preliminary Blood - Venous NO GROWTH AFTER 1 DAY Anaerobic Blood Culture - Preliminary NO GROWTH AFTER 1 DAY Med Orders - Current: Current Medications Acetaminophen (Tylenol Extra Strength) 1,000 mg PO Q6H PRN PRN Reason: Pain Amlodipine Besylate (Norvasc) 10 mg PO DAILY [facility] Last Admin: 09/20/18 08:21 Dose: 10 mg Atorvastatin Calcium (Lipitor) 10 mg PO BEDTIME [facility] Last Admin: 09/19/18 19:48 Dose: 10 mg Ceftriaxone Sodium (Rocephin) 1 gm IVPUSH DAILY [facility] Last Admin: 09/20/18 08:18 Dose: 1 gm Enoxaparin Sodium (Lovenox) 40 mg SUBCUT DAILY [facility] Last Admin: 09/20/18 08:22 Dose: 40 mg Gabapentin (Neurontin) 300 mg PO BID [facility] Last Admin: 09/20/18 08:19 Dose: 300 mg Insulin Glargine (Lantus Solostar) 40 units SUBCUT DAILY [facility] Last Admin: 09/20/18 08:17 Dose: 40 units Insulin Human Lispro (Humalog) 0 unit SUBCUT TIDMEALS [facility]; Protocol Last Admin: 09/20/18 13:02 Dose: Not Given Mirtazapine (Remeron) 30 mg PO BEDTIME [facility] Nicotine (Habitrol) 21 mg TRDERM DAILY [facility] Last Admin: 09/20/18 08:16 Dose: 21 mg Buprenorphine/Naloxone 8-2mg Own Med 0 each SL BEDTIME [facility] Last Admin: 09/19/18 20:14 Dose: 1 each Buprenorphine/Naloxone 8 Mg/2 Mg Own Med 1.5 each SL DAILY [facility] Last Admin: 09/20/18 08:16 Dose: 1.5 each Omeprazole (Omeprazole) 20 mg PO DAILY@0700 [facility] Last Admin: 09/20/18 06:34 Dose: 20 mg Ondansetron HCl (Zofran Odt) 4 mg PO Q6H PRN PRN Reason: nausea, able to take PO Last Admin: 09/20/18 05:43 Dose: 4 mg Ondansetron HCl (Zofran) 4 mg IVPUSH Q6H PRN PRN Reason: Nausea Ropinirole HCl (Requip) 0.5 mg PO TID [facility] Last Admin: 09/20/18 13:02 Dose: Not Given Sertraline HCl (Zoloft) 200 mg PO DAILY [facility] Last Admin: 09/20/18 08:18 Dose: 200 mg Sodium Chloride (Saline Flush) 10 ml FLUSH ASDIRECTED PRN PRN Reason: Keep Vein Open Last Admin: 09/20/18 08:18 Dose: 10 ml Discontinued Medications Acetaminophen (Tylenol Extra Strength) 1,000 mg PO ONETIME ONE Stop: 09/18/18 16:06 Last Admin: 09/18/18 16:09 Dose: 1,000 mg Ceftriaxone Sodium (Rocephin) 1 gm IVPUSH STAT ONE Stop: 09/18/18 15:54 Last Admin: 09/18/18 16:05 Dose: 1 gm Dextrose (Glutose 15) 15 gm PO ONETIME ONE Stop: 09/18/18 17:41 Last Admin: 09/18/18 17:47 Dose: Not Given Hydromorphone HCl (Dilaudid) 0.25 mg IVPUSH Q4H PRN PRN Reason: Pain Last Admin: 09/19/18 17:19 Dose: 0.25 mg Sodium Chloride (Normal Saline) 1,000 mls @ 999 mls/hr IV ONETIME ONE Stop: 09/18/18 16:53 Last Admin: 09/18/18 16:05 Dose: 999 mls/hr Sodium Chloride (Normal Saline) 500 mls @ 100 mls/hr IV ASDIRECTED [facility] Magnesium Sulfate 2 gm/ Premix 50 mls @ 25 mls/hr IV ONETIME ONE Stop: 09/18/18 19:14 Last Admin: 09/18/18 17:27 Dose: 25 mls/hr Sodium Chloride (Normal Saline) 1,000 mls @ 100 mls/hr IV ASDIRECTED [facility] Last Admin: 09/19/18 23:35 Dose: 100 mls/hr Insulin Glargine (Lantus Solostar) 35 units SUBCUT DAILY [facility] Last Admin: 09/19/18 08:36 Dose: 40 units Insulin Human Lispro (Humalog) 0 unit SUBCUT TIDAC [facility] Mirtazapine (Remeron) 30 mg PO DAILY [facility] Last Admin: 09/20/18 08:20 Dose: 30 mg Non-Formulary Medication (Dextrose [Glucose]) 16 gm PO ASDIRECTED PRN PRN Reason: Hypoglycemia Non-Formulary Medication (Lurasidone Hcl [Latuda]) 120 mg PO DAILY [facility] Last Admin: 09/20/18 13:50 Dose: Not Given Non-Formulary Medication (Dextrose [Glucose]) 16 gm PO ONETIME ONE Stop: 09/18/18 17:41 Buprenorphine/Naloxone 8-2mg Own Med 0 each SUBCUT DAILY [facility]
[2018-09-21] MEDS ORDERED: Mirtazapine 30 MG Tab PO SCH (20:00)
== END 2018-09-20 15:55 | disposition home or self-care (01) | DRG 638 ==
LOC: VM.ED 15:26 → VM.MS 16:18
PROVIDERS: ADMIT Nurse Practitioner Family; ATTEND Family Medicine
DX: E11.628 Type 2 diabetes mellitus with other skin complications (principal); L03.115 Cellulitis of right lower limb; E11.621 Type 2 diabetes mellitus with foot ulcer; L97.519 Non-pressure chronic ulcer of other part of right foot with unspecified severity; L97.419 Non-pressure chronic ulcer of right heel and midfoot with unspecified severity; E11.65 Type 2 diabetes mellitus with hyperglycemia; F17.210 Nicotine dependence, cigarettes, uncomplicated; E11.40 Type 2 diabetes mellitus with diabetic neuropathy, unspecified; I10 Essential (primary) hypertension; K58.9 Irritable bowel syndrome, unspecified; F11.10 Opioid abuse, uncomplicated; K27.9 Peptic ulcer, site unspecified, unspecified as acute or chronic, without hemorrhage or perforation; K21.9 Gastro-esophageal reflux disease without esophagitis; H54.7 Unspecified visual loss; F31.9 Bipolar disorder, unspecified; F41.9 Anxiety disorder, unspecified; Z79.899 Other long term (current) drug therapy; Z79.4 Long term (current) use of insulin; Z79.82 Long term (current) use of aspirin; Z88.8 Allergy status to other drugs, medicaments and biological substances; Z86.718 Personal history of other venous thrombosis and embolism; Z83.3 Family history of diabetes mellitus
CPT/HCPCS: 36415; 80053; 83605; 83735; 84145; 85025; 86140; 87040 ×2; 96361; 96374; 99284; A9270; J0696; J7030; 73700-RT; 80048; 82962; 83036; 85379; 85652; 97163-GP; J1170; J1650; J1815; J1815-GY; J3475

== ENCOUNTER 2019-01-28 17:59 | Emergency (ER) | payer MEDICAID ==
[2019-01-28] MEDS ORDERED: Take Home: Sulfamethoxazole/Trimethoprim 800-160 MG Tab, 2 Tab Pack PO ONE (18:20)
[2019-01-28 18:28] VITALS: BP 108/66
--- NOTE | 2019-01-30 06:53 | EDM.PDOC ---
ED HPI GENERAL MEDICAL PROBLEM - General Chief Complaint: Skin Complaint Stated Complaint: RIGHT LEG POSSIBLE INFECTION Time Seen by Provider: 01/28/19 18:15 Source of Information: Reports: Patient History Limitations: Reports: No Limitations - History of Present Illness INITIAL COMMENTS - FREE TEXT/NARRATIVE: Pt. presents to ER with complaints of discharge and discomfort to R heel. She states that the discomfort started several days ago. She has uncontrolled diabetes and states the she has an ulcer on her heel that is being watched by podiatry. She states that there is more pain in this area. She has noticed some clear discharge from the area. No fever or chills. Onset: Today Onset Date: 01/28/19 Location: Reports: Lower Extremity, Right Quality: Reports: Ache, Burning Right Lower Leg Pain Score (Numeric/FACES): 7 - Related Data Allergies Allergy/AdvReac Type Severity Reaction Status Date / Time ibuprofen AdvReac Stomach Verified 01/28/19 18:30 Upset Home Meds: Home Meds Lurasidone HCl [Latuda] 120 mg PO DAILY 04/17/17 [History] atorvaSTATin [Lipitor] 10 mg PO BEDTIME 07/09/17 [History] Omeprazole 20 mg PO DAILY 02/12/18 [History] amLODIPine Besylate [Norvasc] 10 mg PO DAILY 02/12/18 [History] Dextrose [Glucose] 16 gm PO ASDIRECTED PRN 02/13/18 [History] Sertraline [Zoloft] 200 mg PO DAILY tablet 02/16/18 [Rx] Acetaminophen [Tylenol Extra Strength] 1,000 mg PO Q6H PRN 04/25/18 [History] Gabapentin [Neurontin] 300 mg PO BID 04/25/18 [History] Ondansetron [Zofran ODT] 4 mg PO Q4H PRN 4 Days #12 tab.dis 05/14/18 [Rx] Insulin Glarg,Human.Rec.Analog [Lantus] 35 units SUBCUT DAILY 09/18/18 [History] Insulin Lispro [Humalog] 1 unit SUBCUT ASDIRECTED 09/18/18 [History] Mirtazapine 30 mg PO BEDTIME 09/18/18 [History] rOPINIRole [Requip] 0.5 mg PO TID 09/19/18 [History] Buprenorphine HCl/Naloxone HCl [Buprenorphin-Naloxon 8-2 mg Sl] 1 tab SL BEDTIME 09/20/18 [History] Buprenorphine HCl/Naloxone HCl [Buprenorphin-Naloxon 8-2 mg Sl] 1.5 tab SL DAILY 09/20/18 [History] Cephalexin [Keflex] 500 mg PO TID #15 capsule 09/20/18 [Rx] Nicotine [Habitrol] 21 mg TRDERM DAILY patch 09/20/18 [Rx] Non-Formulary Medication [NF Drug] 0 each SL BEDTIME each 09/20/18 [Rx] Non-Formulary Medication [NF Drug] 1.5 each SL DAILY each 09/20/18 [Rx] rOPINIRole [Requip] 0.5 mg PO TID tablet 09/20/18 [Rx] Past Medical History HEENT History: Reports: Impaired Vision Cardiovascular History: Reports: Blood Clots/VTE/DVT, Hypertension Respiratory History: Reports: Other (See Below) Other Respiratory History: hx of acute respiratory failure Gastrointestinal History: Reports: Irritable Bowel Syndrome, PUD Other Gastrointestinal History: acid reflux Genitourinary History: Reports: Urinary Incontinence, Other (See Below) Other Genitourinary History: hx of UTI, hx of acute kidney injury Musculoskeletal History: Reports: Other (See Below) Other Musculoskeletal History: right foot drop Neurological History: Reports: Neuropathy, Diabetic Psychiatric History: Reports: Anxiety, Bipolar, PTSD, Other (See Below) Other Psychiatric History: chronic narcotic use Endocrine/Metabolic History: Reports: Diabetes, Type II, Other (See Below) Other Endocrine/Metabolic History: 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, hx of ketoacidosis Hematologic History: Reports: Other (See Below) - Past Surgical History GI Surgical History: Reports: Cholecystectomy, Other (See Below) Other GI Surgeries/Procedures: Esophagus/ stomach repair Musculoskeletal Surgical History: Reports: Hip Replacement, Other (See Below) Other Musculoskeletal Surgeries/Procedures:: hx of carpal tunnel repair Social & Family History - Family History Family Medical History: Noncontributory Other Psychiatric Family History: 2 brothers with substance abuse problems[ Endocrine/Metabolic: Reports: Diabetes, type II - Tobacco Use Smoking Status *Q: Unknown Ever Smoked - Caffeine Use Caffeine Use: Reports: Coffee - Living Situation & Occupation Living situation: Reports: Occupation: Employed (has 2 children which she shares with jerry, mother has been living with her while she convalesces from DKA and mentla health issues. lizeth at [facility]) ED ROS GENERAL - Review of Systems Review Of Systems: See Below Constitutional: Reports: No Symptoms HEENT: Reports: No Symptoms Respiratory: Reports: No Symptoms Cardiovascular: Reports: No Symptoms Endocrine: Reports: No Symptoms GI/Abdominal: Reports: No Symptoms : Reports: No Symptoms Musculoskeletal: Reports: Foot Pain Skin: Reports: Other (drainage from lesion to R heel) Neurological: Reports: No Symptoms ED EXAM, SKIN/RASH Exam: See Below Exam Limited By: No Limitations General Appearance: Alert, WD/WN, No Apparent Distress Extremities: Other (superficial ulcer to R heel. No discharge noted.) Skin: Warm, Dry, Intact Course - Vital Signs Last Recorded V/S: Last Vital Signs Temp 36.8 C 01/28/19 18:15 Pulse 85 01/28/19 18:15 Resp 12 01/28/19 18:15 BP 108/66 01/28/19 18:15 Pulse Ox 96 01/28/19 18:15 - Orders/Labs/Meds Meds: Medications Discontinued Medications Generic Name Dose Route Start Last Admin Trade Name Jana PRN Reason Stop Dose Admin Trimethoprim/Sulfamethoxazole 2 packet 01/28/19 18:20 01/28/19 18:29 Take Home: Sulfameth/Trimet 800-160mg, 2 Pack PO 01/28/19 18:21 2 packet ONETIME ONE Administration Departure - Departure Time of Disposition: 18:15 Disposition: Home, Self-Care 01 Clinical Impression: Foot ulcer due to secondary DM, Contact dermatitis - Discharge Information Instructions: Diabetes Mellitus and Foot Care, Sulfamethoxazole; Trimethoprim, SMX-TMP tablets, Probiotics Referrals: Avila Aaron MD [Primary Care Provider] - Forms: ED Department Discharge Additional Instructions: Bactrim DS 1 twice daily for 10 days Follow-up with cad specialist next week. It will be helpful to have your shoe off and keep your foot offloaded as much as possible.
== END 2019-01-28 18:30 | disposition home or self-care (01) ==
LOC: VM.ED 17:59
DX: E11.621 Type 2 diabetes mellitus with foot ulcer (principal); L97.418 Non-pressure chronic ulcer of right heel and midfoot with other specified severity; L25.9 Unspecified contact dermatitis, unspecified cause; I10 Essential (primary) hypertension; F41.9 Anxiety disorder, unspecified; E11.40 Type 2 diabetes mellitus with diabetic neuropathy, unspecified; Z88.6 Allergy status to analgesic agent; Z79.4 Long term (current) use of insulin; Z79.899 Other long term (current) drug therapy
CPT/HCPCS: 99282; A9270

== ENCOUNTER 2019-02-04 11:43 | Emergency (ER) | payer MEDICAID ==
[2019-02-04] MEDS ORDERED: hydrOXYzine HCl 25 MG Tab PO ONE (11:54)
[2019-02-04] MEDS ORDERED: cloNIDine 0.1 MG Tab PO ONE (11:54)
[2019-02-04] MEDS ORDERED: Ondansetron 4 MG/2 ML SDV IVPUSH ONE (11:55)
--- NOTE | 2019-02-04 12:04 | EDM.PDOC ---
ED HPI GENERAL MEDICAL PROBLEM - General Chief Complaint: General Stated Complaint: chest pain Time Seen by Provider: 02/04/19 11:50 Source of Information: Reports: Patient, EMS, EMS Notes Reviewed - History of Present Illness INITIAL COMMENTS - FREE TEXT/NARRATIVE: Patient comes into the emergency department with complaint of chest pain. Patient states she started having chest pain approximately one hour ago and called 911. She states that she was short of breath. Could not concentrate, felt like the patel are closing in, could not catch her breath, and vomited. Patient was given nitroglycerin and aspirin prior to arrival. Patient states that she had no relief with either medication. she did have her children with her however they were left to the house with the Police Department. She denies any other concerns or complaints. She also denies having any recent surgeries or illnesses. Medications is up-to-date she has not had any other new medications prescribed to her recently. Onset: Sudden Location: Reports: Chest Quality: Reports: Ache Severity: Mild Improves with: Reports: None Worsens with: Reports: None Associated Symptoms: Reports: No Other Symptoms Treatments CAR TESTER: Reports: Aspirin, EKG, IV/IO, Nitroglycerin, See EMS Report Middle Chest Pain Score (Numeric/FACES): 10 - Related Data Allergies Allergy/AdvReac Type Severity Reaction Status Date / Time ibuprofen AdvReac Stomach Verified 02/04/19 12:45 Upset Home Meds: Home Meds Lurasidone HCl [Latuda] 120 mg PO DAILY 04/17/17 [History] atorvaSTATin [Lipitor] 10 mg PO BEDTIME 07/09/17 [History] Omeprazole 20 mg PO DAILY 02/12/18 [History] Acetaminophen [Tylenol Extra Strength] 1,000 mg PO Q6H PRN 04/25/18 [History] Gabapentin [Neurontin] 800 mg PO BID 04/25/18 [History] Ondansetron [Zofran ODT] 4 mg PO Q4H PRN 4 Days #12 tab.dis 05/14/18 [Rx] Insulin Glarg,Human.Rec.Analog [Lantus] 30 units SUBCUT DAILY 09/18/18 [History] Insulin Lispro [Humalog] 1 unit SUBCUT ASDIRECTED 09/18/18 [History] rOPINIRole [Requip] 0.5 mg PO TID tablet 09/20/18 [Rx] Buprenorphine HCl/Naloxone HCl [Zubsolv 5.7-1.4 mg Tablet Sl] 2 tab SL DAILY 09/24 [History] Glucagon HCl 1 mg IJ ASDIRECTED PRN 02/04/19 [History] Imiquimod [Aldara] 1 each TP ASDIRECTED 02/04/19 [History] PARoxetine [Paxil] 40 mg PO DAILY 02/04/19 [History] Pregabalin [Lyrica] 1 cap PO TID 02/04/19 [History] Sennosides/Docusate Sodium [Senna-Docusate Sodium Tablet] 2 tab PO BID 02/04/19 [History] Sucralfate 1 gm PO QID PRN 02/04/19 [History] Past Medical History HEENT History: Reports: Impaired Vision Cardiovascular History: Reports: Blood Clots/VTE/DVT, Hypertension Respiratory History: Reports: Other (See Below) Other Respiratory History: hx of acute respiratory failure Gastrointestinal History: Reports: Irritable Bowel Syndrome, PUD Other Gastrointestinal History: acid reflux Genitourinary History: Reports: Urinary Incontinence, Other (See Below) Other Genitourinary History: hx of UTI, hx of acute kidney injury Musculoskeletal History: Reports: Other (See Below) Other Musculoskeletal History: right foot drop Neurological History: Reports: Neuropathy, Diabetic Psychiatric History: Reports: Anxiety, Bipolar, PTSD, Other (See Below) Other Psychiatric History: chronic narcotic use Endocrine/Metabolic History: Reports: Diabetes, Type II, Other (See Below) Other Endocrine/Metabolic History: 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, hx of ketoacidosis Hematologic History: Reports: Other (See Below) - Past Surgical History GI Surgical History: Reports: Cholecystectomy, Other (See Below) Other GI Surgeries/Procedures: Esophagus/ stomach repair Musculoskeletal Surgical History: Reports: Hip Replacement, Other (See Below) Other Musculoskeletal Surgeries/Procedures:: hx of carpal tunnel repair Social & Family History - Family History Family Medical History: Noncontributory Other Psychiatric Family History: 2 brothers with substance abuse problems[ Endocrine/Metabolic: Reports: Diabetes, type II - Caffeine Use Caffeine Use: Reports: Coffee - Living Situation & Occupation Living situation: Reports: Occupation: Employed (has 2 children which she shares with jerricaband, mother has been living with her while she convalesces from DKA and mentla health issues. 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 Constitutional: Reports: No Symptoms HEENT: Reports: No Symptoms Respiratory: Reports: No Symptoms, Pleuritic Chest Pain Cardiovascular: Reports: No Symptoms GI/Abdominal: Reports: No Symptoms : Reports: No Symptoms Musculoskeletal: Reports: No Symptoms Skin: Reports: No Symptoms Neurological: Reports: No Symptoms Psychiatric: Reports: Agitation, Anxiety Hematologic/Lymphatic: Reports: No Symptoms Immunologic: Reports: No Symptoms ED EXAM, GENERAL - Physical Exam Exam: See Below Exam Limited By: No Limitations General Appearance: Alert, WD/WN, No Apparent Distress Nose: Normal Inspection, Normal Mucosa Throat/Mouth: Normal Inspection, Normal Lips Head: Atraumatic, Normocephalic Neck: Normal Inspection, Supple, Non-Tender Respiratory/Chest: No Respiratory Distress, Lungs Clear, Normal Breath Sounds, No Accessory Muscle Use, Chest Non-Tender GI/Abdominal: Normal Bowel Sounds, Soft, Non-Tender, No Distention, No Abnormal Bruit Back Exam: Normal Inspection, Full Range of Motion Extremities: Normal Inspection, Normal Range of Motion, No Pedal Edema, Normal Capillary Refill Neurological: Alert, Oriented, CN II-XII Intact, Normal Reflexes Psychiatric: Anxious Skin Exam: Warm, Dry, Intact, Normal Color Course - Vital Signs Last Recorded V/S: Last Vital Signs Temp 36.6 C 02/04/19 12:02 Pulse 108 H 02/04/19 13:11 Resp 14 02/04/19 13:11 BP 110/62 02/04/19 13:11 Pulse Ox 94 L 02/04/19 13:11 - Orders/Labs/Meds Orders: Active Orders 24 hr Category Date Time Status EKG Documentation Completion [RC] STAT Care 02/04/19 11:54 Active Labs: Laboratory Tests 02/04/19 02/04/19 02/04/19 Range/Units 12:07 12:07 12:21 WBC 12.7 H (4.0-10.0) x10^3/uL RBC 5.45 (4.00-5.50) x10^6/uL Hgb 15.6 D (12.0-16.0) g/dL Hct 44.2 (33.0-47.0) % MCV 81.1 D (78.0-93.0) fL MCH 28.6 (26.0-32.0) pg MCHC 35.3 (32.0-36.0) g/dL RDW Coeff of Roderick 13.0 (10.0-15.0) % Plt Count 331 (130-400) x10^3/uL Neut % (Auto) 69.7 (50.0-80.0) % Lymph % (Auto) 24.5 L (25.0-50.0) % [place] % (Auto) 2.8 (2.0-11.0) % Eos % (Auto) 2.0 (0.0-4.0) % Baso % (Auto) 1.0 (0.2-1.2) % Sodium 137 (136-145) mmol/L Potassium 3.9 (3.5-5.1) mmol/L Chloride 97 L D (98-107) mmol/L Carbon Dioxide 20 L (21-32) mmol/L Anion Gap 23.9 H (10-20) mmol/L BUN 12 (7-18) mg/dL Creatinine 0.9 (0.55-1.02) mg/dL Est Cr Clr Drug Dosing TNP Estimated GFR (MDRD) > 60 Glucose 604 H* (74-106) mg/dL Calcium 9.3 (8.5-10.1) mg/dL Corrected Calcium 9.30 (8.5-10.1) mg/dL Total Bilirubin 1.0 (0.2-1.0) mg/dL AST 35 (15-37) U/L ALT 50 (14-59) U/L Alkaline Phosphatase 140 H (46-116) U/L POC Troponin I 0.00 (0.00-0.08) ng/mL Total Protein 7.5 (6.4-8.2) g/dL Albumin 4.0 (3.4-5.0) g/dL Globulin 3.5 Albumin/Globulin Ratio 1.14 Meds: Medications Discontinued Medications Generic Name Dose Route Start Last Admin Trade Name Freq PRN Reason Stop Dose Admin Clonidine HCl 0.1 mg 02/04/19 11:54 02/04/19 12:21 Catapres PO 02/04/19 11:55 0.1 mg ONETIME ONE Administration Hydroxyzine HCl 50 mg 02/04/19 11:54 02/04/19 12:21 Atarax PO 02/04/19 11:55 50 mg ONETIME ONE Administration Insulin Human Regular 10 unit 02/04/19 13:11 02/04/19 13:20 Humulin R IVPUSH 02/04/19 13:12 10 units ONETIME ONE Administration Ondansetron HCl 4 mg 02/04/19 11:55 02/04/19 12:20 Zofran IVPUSH 02/04/19 11:56 4 mg ONETIME ONE Administration Departure - Departure Time of Disposition: 13:30 Disposition: Against Medical Advice 07 Condition: Poor Clinical Impression: DKA, type 1 Qualifiers: Diabetes mellitus complication detail: without coma Qualified Code(s): E10.10 - Type 1 diabetes mellitus with ketoacidosis without coma DKA (diabetic ketoacidoses) Qualifiers: Diabetes mellitus type: type 2 Diabetes mellitus complication detail: without coma Qualified Code(s): E11.10 - Type 2 diabetes mellitus with ketoacidosis without coma - Discharge Information *PRESCRIPTION DRUG MONITORING PROGRAM REVIEWED*: Not Applicable *COPY OF PRESCRIPTION DRUG MONITORING REPORT IN PATIENT ISHAN: Not Applicable Instructions: Diabetic Ketoacidosis Forms: ED Department Discharge Additional Instructions: 1. It is advisable that you do not leave. You have extremely high blood sugar and it is vital to remain and receive medical attention. 2. With you leaving the ER you understand the risk and are assuming the risk despite being told all the major risks including, heart attack, stroke, coma, seizure, and possibly . You are also not safe to drive or operate any motorized vehicle in this state. Please do not assume the risk for you could risk injury to yourself or others. 3. Please reconsider and return to the emergency department to be admitted to the hospital for medical management of your elevated blood sugar that was greater than 600 today. You have been hospitalized many times in the past regarding similar instances and transport to higher level of care/[place]. If unable to return to our ER. Please respond to a [place] ER for they are also familiar with your care. 4. Please call with any questions or concerns. - Problem List Review Problem List Initiated/Reviewed/Updated: Yes - My Orders Last 24 Hours: My Active Orders 02/04/19 11:54 EKG Documentation Completion [RC] STAT - Assessment/Plan Last 24 Hours: My Active Orders 02/04/19 11:54 EKG Documentation Completion [RC] STAT Assessment:: 1. anxiety attack 2. Hyperglycemia Plan: 1. Labs completed in ER. Results reviewed with the pt. 2. EKG completed in the ER. 3. Clonidine and hydroxyzine given in the ER to help with the anxiety symptoms 4. critical blood sugar given >600. did discuss with the patient we should admit the patient and may possibly need to transfer to higher level of care for possibility of DKA depending how her body responds to the insulin. Patient states she is unable to be a admitted to the hospital or be transferred because of her animals and children at her home. She states that she has to get things arranged prior to being hospitalized. Did discuss in great length the severity of her condition and immediate hospitalization and IV insulin at minimum is needed. Patient understands and is refusing currently. She states that she needs to go home and get things settled and then will either return to the emergency department here to [place] her report to the emergency department in [place]. Patient is advised and given all the risks regarding possibility of leading up to heart attack, stroke, coma, and . Patient understands all the risks and is willing to assume the risk. patient is also advised that she should not drive any motorized vehicle while she has an elevated blood sugar for all the same reasons/risks as above and the added risk of injuring herself and/or others on the roadway. Patient again states her understanding and states she will not drive. 5. Patient is told multiple times that she is welcome back to emergency department any time or to call 911 as needed for further medical attention regarding her hyperglycemia or if any other complications or concerns arise. 6. We did discuss today's events leading to the emergency department initially were most likely related to an anxiety attack. Patient states that she feels much better and no longer has any concerns or chest discomfort. She feels medications given in emergency Department helped immensely. 7. All questions and concerns were addressed prior to patient signing out AMA.
[2019-02-04 12:50] LABS: ANION GAP 23.9 mmol/L (10-20); CHLORIDE,CL 97 mmol/L (98-107); SODIUM,NA 137 mmol/L (136-145)
[2019-02-04 13:11] VITALS: BP 110/62
[2019-02-04] MEDS ORDERED: Insulin Regular, Human 100 Units/ML 3 ML Vial IVPUSH ONE (13:11)
== END 2019-02-04 13:30 | disposition left against medical advice (07) ==
LOC: VM.ED 11:43
DX: E13.10 Other specified diabetes mellitus with ketoacidosis without coma (principal); F41.9 Anxiety disorder, unspecified; F31.9 Bipolar disorder, unspecified; E13.42 Other specified diabetes mellitus with diabetic polyneuropathy; I10 Essential (primary) hypertension; Z79.4 Long term (current) use of insulin; Z79.899 Other long term (current) drug therapy; Z88.6 Allergy status to analgesic agent
CPT/HCPCS: 36415; 80053; 84484; 85025; 93005; 96374; 96375; 99285-25; A9270-GY; J1815-GY; J2405

== ENCOUNTER 2019-06-19 17:56 | Emergency (ER) | payer MEDICAID ==
[2019-06-19] MEDS ORDERED: Sodium Chloride 0.9% 10 ML Syringe FLUSH PRN (18:03)
--- NOTE | 2019-06-19 18:42 | EDM.PDOC ---
<StephenKlaus W - Last Filed: 06/19/19 18:43> ED HPI GENERAL MEDICAL PROBLEM - General Chief Complaint: Chest Pain Time Seen by Provider: 06/19/19 17:56 Source of Information: Reports: Patient, EMS History Limitations: Reports: No Limitations - History of Present Illness INITIAL COMMENTS - FREE TEXT/NARRATIVE: Pt. presents to ER with acute onset severe substernal chest discomfort that started an hour before calling 911. Pt. has a history of PE and is currently on eliquis. Pt. states that the discomfort is worse with movement and deep breathing. Denies any cough, productive or otherwise. Denies any recent chest trauma. No ill contacts. She denies any jaw, arm, neck or back pain. Pt. denies any nausea or vomiting. No diaphoresis. Pt. has a history of severe, poorly controlled DM. She states that her glucose has been under good control recently and was 92mg/dl this AM. She has had numerous DVTs in the past. She has a diabetic foot ulcer on her R lower extremity and wears a boot. 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 Chest Pain Score (Numeric/FACES): 8 - Related Data Allergies Allergy/AdvReac Type Severity Reaction Status Date / Time ibuprofen AdvReac Stomach Verified 06/19/19 18:01 Upset Home Meds: Home Meds Lurasidone HCl [Latuda] 120 mg PO DAILY 04/17/17 [History] atorvaSTATin [Lipitor] 10 mg PO BEDTIME 07/09/17 [History] Omeprazole 20 mg PO DAILY 02/12/18 [History] Acetaminophen [Tylenol Extra Strength] 1,000 mg PO Q6H PRN 04/25/18 [History] Gabapentin [Neurontin] 800 mg PO BID 04/25/18 [History] Ondansetron [Zofran ODT] 4 mg PO Q4H PRN 4 Days #12 tab.dis 05/14/18 [Rx] Insulin Glarg,Human.Rec.Analog [Lantus] 30 units SUBCUT DAILY 09/18/18 [History] Insulin Lispro [Humalog] 1 unit SUBCUT ASDIRECTED 09/18/18 [History] rOPINIRole [Requip] 0.5 mg PO TID tablet 09/20/18 [Rx] Buprenorphine HCl/Naloxone HCl [Zubsolv 5.7-1.4 mg Tablet Sl] 2 tab SL DAILY 09/24 [History] Glucagon HCl 1 mg IJ ASDIRECTED PRN 02/04/19 [History] Imiquimod [Aldara] 1 each TP ASDIRECTED 02/04/19 [History] PARoxetine [Paxil] 40 mg PO DAILY 02/04/19 [History] Pregabalin [Lyrica] 1 cap PO TID 02/04/19 [History] Sennosides/Docusate Sodium [Senna-Docusate Sodium Tablet] 2 tab PO BID 02/04/19 [History] Sucralfate 1 gm PO QID PRN 02/04/19 [History] Past Medical History HEENT History: Reports: Impaired Vision Cardiovascular History: Reports: Blood Clots/VTE/DVT, Hypertension, Other (See Below) Other Cardiovascular History: blood clot R leg Respiratory History: Reports: Other (See Below) Other Respiratory History: hx of acute respiratory failure Gastrointestinal History: Reports: Irritable Bowel Syndrome, PUD Other Gastrointestinal History: acid reflux Genitourinary History: Reports: Urinary Incontinence, Other (See Below) Other Genitourinary History: hx of UTI, hx of acute kidney injury Musculoskeletal History: Reports: Other (See Below) Other Musculoskeletal History: right foot drop Neurological History: Reports: Neuropathy, Diabetic Psychiatric History: Reports: Anxiety, Bipolar, PTSD, Other (See Below) Other Psychiatric History: chronic narcotic use Endocrine/Metabolic History: Reports: Diabetes, Type II, Other (See Below) Other Endocrine/Metabolic History: 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, hx of ketoacidosis Hematologic History: Reports: Other (See Below) - Past Surgical History GI Surgical History: Reports: Cholecystectomy, Other (See Below) Other GI Surgeries/Procedures: Esophagus/ stomach repair Musculoskeletal Surgical History: Reports: Hip Replacement, Other (See Below) Other Musculoskeletal Surgeries/Procedures:: hx of carpal tunnel repair Social & Family History - Family History Family Medical History: Noncontributory Other Psychiatric Family History: 2 brothers with substance abuse problems[ Endocrine/Metabolic: Reports: Diabetes, type II - Tobacco Use Smoking Status *Q: Current Every Day Smoker Years of Tobacco use: 14 Packs/Tins Daily: 1 - Caffeine Use Caffeine Use: Reports: Coffee - Recreational Drug Use Recreational Drug Use: No - Living Situation & Occupation Living situation: Reports: Occupation: Employed (has 2 children which she shares with jerry, mother has been living with her while she convalesces from DKA and mentla health issues. lizeth at [facility]) ED ROS GENERAL - Review of Systems Review Of Systems: See Below Constitutional: Reports: No Symptoms. Denies: Fever, Chills, Malaise, Weakness , Fatigue, Diaphoresis HEENT: Reports: No Symptoms Respiratory: Reports: Pleuritic Chest Pain. Denies: Wheezing, Cough, Sputum Cardiovascular: Reports: Chest Pain. Denies: Dyspnea on Exertion, Lightheadedness, Orthopnea, Palpitations, Syncope Endocrine: Reports: No Symptoms GI/Abdominal: Reports: No Symptoms : Reports: No Symptoms Musculoskeletal: Reports: No Symptoms Skin: Reports: No Symptoms Neurological: Reports: No Symptoms Psychiatric: Reports: No Symptoms Hematologic/Lymphatic: Reports: No Symptoms Immunologic: Reports: No Symptoms ED EXAM, GENERAL - Physical Exam Exam: See Below Exam Limited By: No Limitations General Appearance: Alert, WD/WN, No Apparent Distress Respiratory/Chest: No Respiratory Distress, Lungs Clear, Normal Breath Sounds, Other (chest exquisitely tender to palpation) Cardiovascular: Normal Peripheral Pulses Peripheral Pulses: 4+: Radial (L) GI/Abdominal: Soft, Non-Tender, No Organomegaly, No Distention, No Mass (Female) Exam: Deferred Rectal (Female) Exam: Deferred Back Exam: Normal Inspection, Full Range of Motion Extremities: No Pedal Edema Neurological: Alert, Oriented, CN II-XII Intact, Normal Cognition, Normal Gait, Normal Reflexes, No Motor/Sensory Deficits Psychiatric: Normal Affect, Normal Mood Skin Exam: Warm, Dry, Intact, Normal Color, No Rash Lymphatic: No Adenopathy Course - Vital Signs Last Recorded V/S: Last Vital Signs Temp 99.1 F 06/19/19 17:56 Pulse 105 H 06/19/19 17:56 Resp 20 06/19/19 17:56 BP 148/92 H 06/19/19 17:56 Pulse Ox 98 06/19/19 17:56 - Orders/Labs/Meds Orders: Active Orders 24 hr Category Date Time Status Sodium Chloride 0.9% [Saline Flush] Med 06/19/19 18:03 Active 10 ml FLUSH ASDIRECTED PRN Peripheral IV Insertion Adult [OM.PC] Routine Oth 06/19/19 18:03 Ordered Medication Orders Sodium Chloride (Saline Flush) 10 ml FLUSH ASDIRECTED PRN PRN Reason: Keep Vein Open Labs: Laboratory Tests 06/19/19 06/19/19 06/19/19 Range/Units 18:15 18:15 18:15 WBC 8.1 (4.0-10.0) x10^3/uL RBC 5.14 (4.00-5.50) x10^6/uL Hgb 14.5 (12.0-16.0) g/dL Hct 42.1 (33.0-47.0) % MCV 81.9 (78.0-93.0) fL MCH 28.2 (26.0-32.0) pg MCHC 34.4 (32.0-36.0) g/dL RDW Coeff of Roderick 13.4 (10.0-15.0) % Plt Count 295 (130-400) x10^3/uL Neut % (Auto) 73.9 (50.0-80.0) % Lymph % (Auto) 21.1 L (25.0-50.0) % Bucks % (Auto) 2.7 (2.0-11.0) % Eos % (Auto) 1.2 (0.0-4.0) % Baso % (Auto) 1.1 (0.2-1.2) % PT 11.0 (10.0-12.8) SEC INR 1.0 L (2.0-3.5) D-Dimer, Quantitative 0.19 (<=0.58) mg/LFEU Sodium 136 (69-191) mmol/L Potassium 4.3 (1.5-9.9) mmol/L Chloride 96 L (54-184) mmol/L Carbon Dioxide 23 (21-32) mmol/L Anion Gap 21.3 H (10-20) mmol/L BUN 11 (7-18) mg/dL Creatinine 0.8 (0.55-1.02) mg/dL Est Cr Clr Drug Dosing 101.60 mL/min Estimated GFR (MDRD) > 60 Glucose 478 H* (74-106) mg/dL POC Glucose (74-106) mg/dL Calcium 9.1 (8.5-10.1) mg/dL Corrected Calcium 9.42 (8.5-10.1) mg/dL Phosphorus 3.1 (2.6-4.7) mg/dL Magnesium 1.6 L (1.8-2.4) mg/dL Total Bilirubin 0.8 (0.2-1.0) mg/dL AST 45 H (15-37) U/L ALT 55 (14-59) U/L Alkaline Phosphatase 152 H (46-116) U/L POC Troponin I (0.00-0.08) ng/mL C-Reactive Protein 0.5 (<=0.9) mg/dL NT-Pro-B Natriuret Pep 467 H (<=125) pg/mL Total Protein 7.9 (6.4-8.2) g/dL Albumin 3.6 (3.4-5.0) g/dL Globulin 4.3 Albumin/Globulin Ratio 0.84 TSH, Ultra Sensitive 0.762 (0.358-3.74) uIU/mL 06/19/19 06/19/19 Range/Units 18:18 20:27 WBC (4.0-10.0) x10^3/uL RBC (4.00-5.50) x10^6/uL Hgb (12.0-16.0) g/dL Hct (33.0-47.0) % MCV (78.0-93.0) fL MCH (26.0-32.0) pg MCHC (32.0-36.0) g/dL RDW Coeff of Roderick (10.0-15.0) % Plt Count (130-400) x10^3/uL Neut % (Auto) (50.0-80.0) % Lymph % (Auto) (25.0-50.0) % Bucks % (Auto) (2.0-11.0) % Eos % (Auto) (0.0-4.0) % Baso % (Auto) (0.2-1.2) % PT (10.0-12.8) SEC INR (2.0-3.5) D-Dimer, Quantitative (<=0.58) mg/LFEU Sodium (69-191) mmol/L Potassium (1.5-9.9) mmol/L Chloride (54-184) mmol/L Carbon Dioxide (21-32) mmol/L Anion Gap (10-20) mmol/L BUN (7-18) mg/dL Creatinine (0.55-1.02) mg/dL Est Cr Clr Drug Dosing mL/min Estimated GFR (MDRD) Glucose (74-106) mg/dL POC Glucose > 500 H* (74-106) mg/dL Calcium (8.5-10.1) mg/dL Corrected Calcium (8.5-10.1) mg/dL Phosphorus (2.6-4.7) mg/dL Magnesium (1.8-2.4) mg/dL Total Bilirubin (0.2-1.0) mg/dL AST (15-37) U/L ALT (14-59) U/L Alkaline Phosphatase (46-116) U/L POC Troponin I 0.00 (0.00-0.08) ng/mL C-Reactive Protein (<=0.9) mg/dL NT-Pro-B Natriuret Pep (<=125) pg/mL Total Protein (6.4-8.2) g/dL Albumin (3.4-5.0) g/dL Globulin Albumin/Globulin Ratio TSH, Ultra Sensitive (0.358-3.74) uIU/mL Meds: Medications Generic Name Dose Route Start Last Admin Trade Name Freq PRN Reason Stop Dose Admin Sodium Chloride 10 ml 06/19/19 18:03 Saline Flush FLUSH ASDIRECTED PRN Keep Vein Open Discontinued Medications Generic Name Dose Route Start Last Admin Trade Name Freq PRN Reason Stop Dose Admin Sodium Chloride 1,000 mls @ 1,000 mls/hr 06/19/19 19:04 Normal Saline IV 06/19/19 20:03 .BOLUS ONE Insulin Human Regular 10 unit 06/19/19 19:03 Humulin R IVPUSH 06/19/19 19:04 ONETIME ONE Magnesium Chloride 64 mg 06/19/19 19:17 Mag-64 PO 06/19/19 19:18 ONETIME ONE Departure - Departure Disposition: Home, Self-Care 01 Clinical Impression: Costochondritis, acute, Atypical chest pain, Hyperglycemia, Hypomagnesemia - Discharge Information Instructions: Costochondritis, [id number] Referrals: Destiny Escobedo MD [Primary Care Provider] - Forms: ED Department Discharge Additional Instructions: 1. Stay well hydrated and rest 2. No changes with any home medications 3. All your ER heart tests were normal 4. See your PCP as symptoms warrant <KaeChance - Last Filed: 06/19/19 20:37> Course - Radiology Interpretation Free Text/Narrative:: CXR: Lungs are mildly hypoinflated. The heart is normal in size See scanned report in EMR - Re-Assessments/Exams Free Text/Narrative Re-Assessment/Exam: 06/19/19 20:34 Recheck of blood sugar was >500 on fingerstick. Offered treatment, patient refused any additional treatment stating, "I will treat it at home." Departure - Departure Time of Disposition: 20:35 Condition: Good - Discharge Information *PRESCRIPTION DRUG MONITORING PROGRAM REVIEWED*: Not Applicable *COPY OF PRESCRIPTION DRUG MONITORING REPORT IN PATIENT ISHAN: Not Applicable - Problem List Review Problem List Initiated/Reviewed/Updated: Yes - Assessment/Plan Assessment:: Costochondritis Atypical Chest Pain Hypomagnesemia Hyperglycemia Plan: Assessment, labs, EKG studies extensively reviewed with patient. No acute cardiac emergency found. Probable musculoskeletal in nature. Will give 10 units of IV insulin and repeat accucheck. Slo-Mag given PO. Will given additional IVF. Patient is pain free upon discharge. All questions answered. Recommend f/u with PCP this week for a recheck. Needs better glycemic control, as she is aware of. Patient discharged in stable condition.
--- NOTE | 2019-06-19 18:48 | CR ---
[id number] RAD/RAD Chest PA or AP 1V EXAM: FRONTAL CHEST INDICATION: CHEST PAIN. COMPARISON: May 19, 2018. DISCUSSION: Lungs are mildly hypoinflated, but clear. The heart is normal in size. IMPRESSION: 1. Mild hypoinflation. Isidoro Hidalgo MD 06/19/19 1847 Thank you for allowing us to participate in the care of your patient.
[2019-06-19 18:53] LABS: ANION GAP 21.3 mmol/L (10-20); CHLORIDE,CL 96 mmol/L (54-184); SODIUM,NA 136 mmol/L (69-191)
[2019-06-19] MEDS ORDERED: Insulin Regular, Human 100 Units/ML 3 ML Vial IVPUSH ONE (19:03)
[2019-06-19] MEDS ORDERED: Sodium Chloride 0.9% 1,000 ML IV ONE (19:04)
[2019-06-19] MEDS ORDERED: Magnesium Chloride 64 MG Tab.ER PO ONE (19:17)
[2019-06-19 23:11] VITALS: BP 108/61; PULSE 102
== END 2019-06-19 20:40 | disposition home or self-care (01) ==
LOC: VM.ED 17:56
DX: M94.0 Chondrocostal junction syndrome [Tietze] (principal); I10 Essential (primary) hypertension; E11.40 Type 2 diabetes mellitus with diabetic neuropathy, unspecified; F32.9 Major depressive disorder, single episode, unspecified; K27.9 Peptic ulcer, site unspecified, unspecified as acute or chronic, without hemorrhage or perforation; E11.65 Type 2 diabetes mellitus with hyperglycemia; E83.42 Hypomagnesemia; Z79.4 Long term (current) use of insulin; Z79.899 Other long term (current) drug therapy
CPT/HCPCS: 71045; 80053; 82962; 83735; 83880; 84100; 84443; 84484; 85025; 85379; 85610; 86140; 96361; 96374; 99285; A9270; J1815; J7030

== ENCOUNTER 2019-07-10 18:32 | Emergency (ER) | payer MEDICAID ==
[2019-07-10] MEDS ORDERED: Sodium Chloride 0.9% 10 ML Syringe FLUSH PRN (19:11)
[2019-07-10] MEDS ORDERED: cefTRIAXone 2 GM Vial IVPUSH ONE (19:19)
[2019-07-10] MEDS ORDERED: Sodium Chloride 0.9% 1,000 ML IV ONE (19:21)
--- NOTE | 2019-07-10 19:34 | CR ---
[id number] RAD/RAD Foot Right 3V Min EXAM: RIGHT FOOT 3 VIEWS INDICATION: ULCER COMPARISON: April 20, 2018. DISCUSSION: Interval development of osteopenia diffusely. Diffuse soft tissue swelling. No fracture or dislocation is identified. No plain radiographic evidence of osteomyelitis. Soft tissue ulceration is suggested at the level of the posterior calcaneus. Mild enthesopathy at the Achilles attachment on the calcaneus. IMPRESSION: 1. Development of diffuse soft tissue swelling with no plain radiographic evidence of osteomyelitis. MRI could provide further assessment if clinical symptoms persist. Isidoro Hidalgo MD 07/10/19 1933 Thank you for allowing us to participate in the care of your patient.
--- NOTE | 2019-07-10 19:38 | EDM.PDOC ---
ED HPI GENERAL MEDICAL PROBLEM - General Chief Complaint: General Stated Complaint: FOOT PAIN Time Seen by Provider: 07/10/19 19:08 Source of Information: Reports: Patient, Old Records, RN, RN Notes Reviewed History Limitations: Reports: No Limitations - History of Present Illness INITIAL COMMENTS - FREE TEXT/NARRATIVE: Patient presents to the ED at [facility] for the evaluation of fevers that started about 24 hours ago. She did not seek any help from her PCP. Patient has a long standing history of diabetic foot ulcers. Patient is poorly compliant with treating and taking care of her diabetes. Patient states overall she does not feel well. Patient states she has a wound to the heel of the right foot. By history, patient has had issues with diabetic foot ulcers for quite some time. She states the right heel has completed healed in the past. She recently was using a CAM walker boot. 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) Right Feet Pain Score (Numeric/FACES): 8 - Related Data Allergies Allergy/AdvReac Type Severity Reaction Status Date / Time ibuprofen AdvReac Stomach Verified 07/10/19 19:18 Upset Home Meds: Home Meds Lurasidone HCl [Latuda] 120 mg PO DAILY 04/17/17 [History] atorvaSTATin [Lipitor] 10 mg PO BEDTIME 07/09/17 [History] Omeprazole 20 mg PO DAILY 02/12/18 [History] Acetaminophen [Tylenol Extra Strength] 1,000 mg PO Q6H PRN 04/25/18 [History] Gabapentin [Neurontin] 800 mg PO BID 04/25/18 [History] Ondansetron [Zofran ODT] 4 mg PO Q4H PRN 4 Days #12 tab.dis 05/14/18 [Rx] Insulin Glarg,Human.Rec.Analog [Lantus] 30 units SUBCUT DAILY 09/18/18 [History] Insulin Lispro [Humalog] 1 unit SUBCUT ASDIRECTED 09/18/18 [History] rOPINIRole [Requip] 0.5 mg PO TID tablet 09/20/18 [Rx] Buprenorphine HCl/Naloxone HCl [Zubsolv 5.7-1.4 mg Tablet Sl] 2 tab SL DAILY 09/24 [History] Glucagon HCl 1 mg IJ ASDIRECTED PRN 02/04/19 [History] Imiquimod [Aldara] 1 each TP ASDIRECTED 02/04/19 [History] PARoxetine [Paxil] 40 mg PO DAILY 02/04/19 [History] Pregabalin [Lyrica] 1 cap PO TID 02/04/19 [History] Sennosides/Docusate Sodium [Senna-Docusate Sodium Tablet] 2 tab PO BID 02/04/19 [History] Sucralfate 1 gm PO QID PRN 02/04/19 [History] Past Medical History HEENT History: Reports: Impaired Vision Cardiovascular History: Reports: Blood Clots/VTE/DVT, Hypertension, Other (See Below) Other Cardiovascular History: blood clot R leg Respiratory History: Reports: Other (See Below) Other Respiratory History: hx of acute respiratory failure Gastrointestinal History: Reports: Irritable Bowel Syndrome, PUD Other Gastrointestinal History: acid reflux Genitourinary History: Reports: Urinary Incontinence, Other (See Below) Other Genitourinary History: hx of UTI, hx of acute kidney injury Musculoskeletal History: Reports: Other (See Below) Other Musculoskeletal History: right foot drop Neurological History: Reports: Neuropathy, Diabetic Psychiatric History: Reports: Anxiety, Bipolar, PTSD, Other (See Below) Other Psychiatric History: chronic narcotic use Endocrine/Metabolic History: Reports: Diabetes, Type II, Other (See Below) Other Endocrine/Metabolic History: 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, hx of ketoacidosis Hematologic History: Reports: Other (See Below) - Past Surgical History GI Surgical History: Reports: Cholecystectomy, Other (See Below) Other GI Surgeries/Procedures: Esophagus/ stomach repair Musculoskeletal Surgical History: Reports: Hip Replacement, Other (See Below) Other Musculoskeletal Surgeries/Procedures:: hx of carpal tunnel repair Social & Family History - Family History Family Medical History: Noncontributory Other Psychiatric Family History: 2 brothers with substance abuse problems[ Endocrine/Metabolic: Reports: Diabetes, type II - Tobacco Use Smoking Status *Q: Unknown Ever Smoked - Caffeine Use Caffeine Use: Reports: Coffee - Living Situation & Occupation Living situation: Reports: Occupation: Employed (has 2 children which she shares with jerry, mother has been living with her while she convalesces from DKA and mentla health issues. liezth at [facility]) ED ROS GENERAL - Review of Systems Review Of Systems: See Below Constitutional: Reports: Fever. Denies: Chills Respiratory: Denies: Shortness of Breath, Cough Cardiovascular: Denies: Chest Pain, Palpitations GI/Abdominal: Denies: Abdominal Pain, Nausea, Vomiting Musculoskeletal: Reports: Foot Pain, Joint Pain Skin: Reports: Wound Neurological: Reports: No Symptoms ED EXAM, GENERAL - Physical Exam Exam: See Below Exam Limited By: No Limitations General Appearance: Alert, No Apparent Distress Respiratory/Chest: No Respiratory Distress, Lungs Clear, Normal Breath Sounds Cardiovascular: Normal Peripheral Pulses, Regular Rate, Rhythm, Other (+2 dependent pitting edema bilateral lower extremities) Peripheral Pulses: 1+: Dorsalis Pedis (L), Dorsalis Pedis (R) GI/Abdominal: Soft, Non-Tender, Abnormal Bowel Sounds (Hypoactive) Extremities: Pedal Edema Neurological: Alert, Oriented, Slow to Respond Skin Exam: Wound/Incision (Right heel Stage IV decubitus ulcer open to almost the heel bone; tissue fleshy; foul odor; minimal response to pain; no apparent drainage) Course - Vital Signs Last Recorded V/S: Last Vital Signs Temp 102.2 F H 07/10/19 18:45 Pulse 124 H 07/10/19 18:45 Resp 20 07/10/19 18:45 BP 129/80 07/10/19 18:45 Pulse Ox 93 L 07/10/19 18:45 - Orders/Labs/Meds Orders: Active Orders 24 hr Category Date Time Status Foot Comp Min 3V Lt [CR] Stat Exams 07/10/19 18:51 Stop Req CULTURE BLOOD [BC] Stat Lab 07/10/19 19:26 Received CULTURE BLOOD [BC] Stat Lab 07/10/19 19:32 Received Sodium Chloride 0.9% [Saline Flush] Med 07/10/19 19:11 Active 10 ml FLUSH ASDIRECTED PRN Blood Culture x2 Reflex Set [OM.PC] Stat Oth 07/10/19 19:11 Ordered Peripheral IV Insertion Adult [OM.PC] Routine Oth 07/10/19 19:11 Ordered Medication Orders Sodium Chloride (Saline Flush) 10 ml FLUSH ASDIRECTED PRN PRN Reason: Keep Vein Open Labs: Laboratory Tests 07/10/19 07/10/19 07/10/19 Range/Units 19:26 19:26 19:26 WBC 12.6 H (4.0-10.0) x10^3/uL RBC 4.24 (4.00-5.50) x10^6/uL Hgb 12.0 D (12.0-16.0) g/dL Hct 35.7 (33.0-47.0) % MCV 84.2 (78.0-93.0) fL MCH 28.3 (26.0-32.0) pg MCHC 33.6 (32.0-36.0) g/dL RDW Coeff of Roderick 13.3 (10.0-15.0) % Plt Count 316 (130-400) x10^3/uL Neut % (Auto) 91.1 H (50.0-80.0) % Lymph % (Auto) 6.1 L (25.0-50.0) % Park % (Auto) 2.4 (2.0-11.0) % Eos % (Auto) 0.0 (0.0-4.0) % Baso % (Auto) 0.4 (0.2-1.2) % Sodium 131 L (69-191) mmol/L Potassium 4.0 (1.5-9.9) mmol/L Chloride 93 L (54-184) mmol/L Carbon Dioxide 25 (21-32) mmol/L Anion Gap 17.0 (10-20) mmol/L BUN 8 (7-18) mg/dL Creatinine 0.8 (0.55-1.02) mg/dL Est Cr Clr Drug Dosing TNP Estimated GFR (MDRD) > 60 Glucose 339 H (74-106) mg/dL Lactic Acid 1.0 (0.4-2.0) mmol/L Calcium 8.0 L (8.5-10.1) mg/dL Corrected Calcium 9.04 (8.5-10.1) mg/dL Total Bilirubin 0.8 (0.2-1.0) mg/dL AST 23 (15-37) U/L ALT 17 (14-59) U/L Alkaline Phosphatase 97 (46-116) U/L C-Reactive Protein 15.7 H (<=0.9) mg/dL Total Protein 7.3 (6.4-8.2) g/dL Albumin 2.7 L (3.4-5.0) g/dL Globulin 4.6 Albumin/Globulin Ratio 0.59 Meds: Medications Generic Name Dose Route Start Last Admin Trade Name Freq PRN Reason Stop Dose Admin Sodium Chloride 10 ml 07/10/19 19:11 Saline Flush FLUSH ASDIRECTED PRN Keep Vein Open Discontinued Medications Generic Name Dose Route Start Last Admin Trade Name Freq PRN Reason Stop Dose Admin Ceftriaxone Sodium 2 gm 07/10/19 19:19 07/10/19 19:31 Rocephin IVPUSH 07/10/19 19:20 2 gm STAT ONE Administration Sodium Chloride 1,000 mls @ 999 mls/hr 07/10/19 19:21 07/10/19 19:31 Normal Saline IV 07/10/19 20:21 999 mls/hr ONETIME ONE Administration Departure - Departure Time of Disposition: 20:33 Disposition: DC/[facility]fer to [facility] 02 Condition: Fair Clinical Impression: Diabetic foot ulcer Qualifiers: Diabetic foot ulcer location: heel Diabetes mellitus type: type 1 Laterality: right Non-pressure ulcer stage: unspecified non-pressure ulcer stage Qualified Code(s): E10.621 - Type 1 diabetes mellitus with foot ulcer; L97.419 - Non- pressure chronic ulcer of right heel and midfoot with unspecified severity Fever Qualifiers: Fever type: unspecified Qualified Code(s): R50.9 - Fever, unspecified Leukocytosis Qualifiers: Leukocytosis type: bandemia Qualified Code(s): D72.825 - Bandemia - Discharge Information *PRESCRIPTION DRUG MONITORING PROGRAM REVIEWED*: Not Applicable *COPY OF PRESCRIPTION DRUG MONITORING REPORT IN PATIENT ISHAN: Not Applicable Forms: Interfacility Transfer EMTALA - Problem List Review Problem List Initiated/Reviewed/Updated: Yes - My Orders Last 24 Hours: My Active Orders 07/10/19 19:11 Sodium Chloride 0.9% [Saline Flush] 10 ml FLUSH ASDIRECTED PRN Blood Culture x2 Reflex Set [OM.PC] Stat Peripheral IV Insertion Adult [OM.PC] Routine 07/10/19 19:26 CULTURE BLOOD [BC] Stat 07/10/19 19:32 CULTURE BLOOD [BC] Stat - Assessment/Plan Last 24 Hours: My Active Orders 07/10/19 19:11 Sodium Chloride 0.9% [Saline Flush] 10 ml FLUSH ASDIRECTED PRN Blood Culture x2 Reflex Set [OM.PC] Stat Peripheral IV Insertion Adult [OM.PC] Routine 07/10/19 19:26 CULTURE BLOOD [BC] Stat 07/10/19 19:32 CULTURE BLOOD [BC] Stat Assessment:: Stage IV diabetic foot ulcer Hyperglycemia Uncontrolled DM Fevers Plan: Case discussed with Dr. Stanton, Exterior Interior Specialist [facility]. Patient accepted in transfer. Patient will be sent via ALS ground. Patient agrees with transfer and wished to proceed. 1g Vanco and 500 mg of Flagyl started prior to departure.
[2019-07-10 20:10] LABS: CHLORIDE,CL 93 mmol/L (54-184); SODIUM,NA 131 mmol/L (69-191)
[2019-07-10 20:36] VITALS: BP 127/70; PULSE 110
[2019-07-10] MEDS ORDERED: metroNIDAZOLE/Normal Saline 500 MG in Premix Bag 1 BAG IV ONE (20:37)
[2019-07-10] MEDS ORDERED: Gabapentin 400 MG Cap PO ONE (20:45)
[2019-07-10 21:17] LABS: BARBITURATE SCREEN,URINE NEGATIVE (NEGATIVE); BENZODIAZEPINES SCREEN,URINE NEGATIVE (NEGATIVE); EDDP,URINE SCREEN NEGATIVE (NEGATIVE); METHAMPHETAMINE SCREEN, URINE NEGATIVE (NEGATIVE); TCA SCREEN,URINE POSITIVE (NEGATIVE); THC SCREEN,URINE 50 NG/ML NEGATIVE (NEGATIVE)
== END 2019-07-10 21:14 | disposition short-term general hospital (02) ==
LOC: VM.ED 18:32
DX: E10.621 Type 1 diabetes mellitus with foot ulcer (principal); L97.419 Non-pressure chronic ulcer of right heel and midfoot with unspecified severity; D72.829 Elevated white blood cell count, unspecified; K21.9 Gastro-esophageal reflux disease without esophagitis; I10 Essential (primary) hypertension; F31.9 Bipolar disorder, unspecified; F41.9 Anxiety disorder, unspecified; F43.10 Post-traumatic stress disorder, unspecified; Z79.4 Long term (current) use of insulin; Z88.6 Allergy status to analgesic agent; Z79.899 Other long term (current) drug therapy
CPT/HCPCS: 36415; 73630; 80053; 80305; 81003; 83605; 85025; 86140; 87040; 96361; 96374; 96375; 99284; J0696; J3370; J3490; J7030; J7050

== ENCOUNTER 2019-08-17 20:57 | Emergency (ER) | payer MEDICAID ==
[2019-08-17] MEDS ORDERED: Acetaminophen 500 MG Tab PO ONE (21:38)
[2019-08-17] MEDS ORDERED: Acetaminophen/oxyCODONE 325-5 MG Tab PO ONE (22:09)
[2019-08-17 22:20] LABS: CHLORIDE,CL 88 mmol/L (98-107)
[2019-08-17 22:29] LABS: ANION GAP 15.2 mmol/L (10-20); SODIUM,NA 129 mmol/L (136-145)
--- NOTE | 2019-08-17 22:31 | EDM.PDOC ---
ED HPI GENERAL MEDICAL PROBLEM - General Chief Complaint: Fever Stated Complaint: fever Time Seen by Provider: 08/17/19 21:27 Source of Information: Reports: Patient, Family History Limitations: Reports: No Limitations - History of Present Illness INITIAL COMMENTS - FREE TEXT/NARRATIVE: Pt. presents to ER with increased pain in R foot, discharge from foot abscess, fever and chills. Pt. has a large abscess on her R heel and is scheduled to undergo surgery for this hopefully next week. Pt. is currently undergoing IV home antibiotic therapy. She was on Cubicin and was started on Zosyn today. Pt. has a history of severe non-compliance. Her diabetes is poorly controlled. 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 She states that she has been running fevers consistently for the past week. She denies any chest pain or shortness of breath. No lightheadedness. No nausea, vomiting, or diarrhea. No chest pain or shortness of breath. Pt. was started back on her wound vac today. Foot had been in a cast so the wound vac was restarted today. Onset: Today Location: Reports: Lower Extremity, Right, Generalized Quality: Reports: Throbbing Treatments HYDRODYNAMICIST: Reports: Acetaminophen - Related Data Allergies Allergy/AdvReac Type Severity Reaction Status Date / Time ibuprofen AdvReac Stomach Verified 08/17/19 21:27 Upset Home Meds: Home Meds Lurasidone HCl [Latuda] 120 mg PO DAILY 04/17/17 [History] atorvaSTATin [Lipitor] 10 mg PO BEDTIME 07/09/17 [History] Omeprazole 20 mg PO DAILY 02/12/18 [History] Acetaminophen [Tylenol Extra Strength] 1,000 mg PO Q6H PRN 04/25/18 [History] Gabapentin [Neurontin] 800 mg PO BID 04/25/18 [History] Ondansetron [Zofran ODT] 4 mg PO Q4H PRN 4 Days #12 tab.dis 05/14/18 [Rx] Insulin Glarg,Human.Rec.Analog [Lantus] 40 units SUBCUT DAILY 09/18/18 [History] Insulin Lispro [Humalog] 1 unit SUBCUT ASDIRECTED 09/18/18 [History] rOPINIRole [Requip] 0.5 mg PO TID tablet 09/20/18 [Rx] Buprenorphine HCl/Naloxone HCl [Zubsolv 5.7-1.4 mg Tablet Sl] 1 tab SL DAILY 09/24 [History] Glucagon HCl 1 mg IJ ASDIRECTED PRN 02/04/19 [History] PARoxetine [Paxil] 40 mg PO DAILY 02/04/19 [History] Sennosides/Docusate Sodium [Senna-Docusate Sodium Tablet] 2 tab PO BID 02/04/19 [History] Sucralfate 1 gm PO QID PRN 02/04/19 [History] Amitriptyline [Elavil] 50 mg PO BEDTIME 08/17/19 [History] Apixaban [Eliquis] 5 mg PO BID 08/17/19 [History] Bisacodyl [Dulcolax] 5 mg PO BID PRN 08/17/19 [History] DAPTOmycin [Daptomycin] 550 mg IV ASDIRECTED 08/17/19 [History] Heparin Sodium,Porcine/PF [Heparin IV Flush 100 Units/ml] 300 unit IV ASDIRECTED 08/17/19 [History] Piperacillin/Tazobactam [Zosyn 4.5 GM] 4.5 gm IV Q8H 08/17/19 [History] Polyethylene Glycol 3350 [MiraLAX] 17 gm PO DAILY 08/17/19 [History] amLODIPine [Norvasc] 10 mg PO DAILY 08/17/19 [History] oxyCODONE HCl/Acetaminophen [Percocet 5-325 mg Tablet] 1 - 2 tab PO Q6H [History] Past Medical History HEENT History: Reports: Impaired Vision Cardiovascular History: Reports: Blood Clots/VTE/DVT, Hypertension, Other (See Below) Other Cardiovascular History: blood clot R leg Respiratory History: Reports: Other (See Below) Other Respiratory History: hx of acute respiratory failure Gastrointestinal History: Reports: Irritable Bowel Syndrome, PUD Other Gastrointestinal History: acid reflux Genitourinary History: Reports: Urinary Incontinence, Other (See Below) Other Genitourinary History: hx of UTI, hx of acute kidney injury Musculoskeletal History: Reports: Other (See Below) Other Musculoskeletal History: right foot drop Neurological History: Reports: Neuropathy, Diabetic Psychiatric History: Reports: Anxiety, Bipolar, PTSD, Other (See Below) Other Psychiatric History: chronic narcotic use Endocrine/Metabolic History: Reports: Diabetes, Type II, Other (See Below) Other Endocrine/Metabolic History: 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, hx of ketoacidosis Hematologic History: Reports: Other (See Below) - Past Surgical History GI Surgical History: Reports: Cholecystectomy, Other (See Below) Other GI Surgeries/Procedures: Esophagus/ stomach repair Musculoskeletal Surgical History: Reports: Hip Replacement, Other (See Below) Other Musculoskeletal Surgeries/Procedures:: hx of carpal tunnel repair Social & Family History - Family History Family Medical History: Noncontributory Other Psychiatric Family History: 2 brothers with substance abuse problems[ Endocrine/Metabolic: Reports: Diabetes, type II - Tobacco Use Smoking Status *Q: Current Every Day Smoker Years of Tobacco use: 16 Packs/Tins Daily: 1 - Caffeine Use Caffeine Use: Reports: Coffee - Living Situation & Occupation Living situation: Reports: Occupation: Employed (has 2 children which she shares with jerry, mother has been living with her while she convalesces from DKA and mentla health issues. lizeth at [facility]) ED ROS GENERAL - Review of Systems Review Of Systems: See Below Constitutional: Reports: Fever, Fatigue HEENT: Reports: No Symptoms Respiratory: Reports: No Symptoms Cardiovascular: Reports: No Symptoms Endocrine: Reports: No Symptoms GI/Abdominal: Reports: No Symptoms : Reports: No Symptoms Musculoskeletal: Reports: Other (see HPI) Skin: Reports: No Symptoms Neurological: Reports: No Symptoms Psychiatric: Reports: No Symptoms Hematologic/Lymphatic: Reports: No Symptoms Immunologic: Reports: No Symptoms ED EXAM, GENERAL - Physical Exam Exam: See Below Exam Limited By: No Limitations General Appearance: Alert, WD/WN, No Apparent Distress Throat/Mouth: Normal Inspection, Normal Lips, Normal Teeth, No Airway Compromise Head: Atraumatic, Normocephalic Neck: Normal Inspection, Supple, Non-Tender, Full Range of Motion Respiratory/Chest: No Respiratory Distress, Lungs Clear, Normal Breath Sounds, No Accessory Muscle Use, Chest Non-Tender Cardiovascular: Normal Peripheral Pulses, Regular Rate, Rhythm, No Edema, No Gallop, No JVD, No Murmur, No Rub Peripheral Pulses: 4+: Dorsalis Pedis (L), Dorsalis Pedis (R) GI/Abdominal: Soft, Non-Tender, No Organomegaly, No Distention, No Mass (Female) Exam: Deferred Rectal (Female) Exam: Deferred Back Exam: Normal Inspection Extremities: Normal Capillary Refill, Other (Wound vac noted to L heel. No significant cellulitis to the foot or lower leg) Neurological: Alert, Oriented, CN II-XII Intact, Normal Cognition, Normal Gait, Normal Reflexes, No Motor/Sensory Deficits Psychiatric: Normal Affect Skin Exam: Warm Lymphatic: No Adenopathy Course - Vital Signs Last Recorded V/S: Last Vital Signs Temp 38.6 C H 08/17/19 22:38 Pulse 116 H 08/17/19 22:38 Resp 18 08/17/19 22:38 BP 135/53 L 08/17/19 22:38 Pulse Ox 88 L 08/17/19 22:38 - Orders/Labs/Meds Orders: Active Orders 24 hr Category Date Time Status Chest 1V Frontal [CR] Stat Exams 08/17/19 21:39 Taken CULTURE BLOOD [BC] Stat Lab 08/17/19 21:41 Received CULTURE BLOOD [BC] Stat Lab 08/17/19 21:47 Received Sodium Chloride 0.9% [Normal Saline] 1,000 ml Med 08/17/19 22:38 Ordered IV .BOLUS Blood Culture x2 Reflex Set [OM.PC] Stat Oth 08/17/19 21:32 Ordered Medication Orders Sodium Chloride (Normal Saline) 1,000 mls @ 1,000 mls/hr IV .BOLUS ONE Stop: 08/17/19 23:37 Labs: Laboratory Tests 08/17/19 08/17/19 08/17/19 Range/Units 21:47 21:47 21:47 WBC 0.9 L* (4.0-10.0) x10^3/uL RBC 4.02 (4.00-5.50) x10^6/uL Hgb 11.2 L (12.0-16.0) g/dL Hct 31.5 L (33.0-47.0) % MCV 78.4 D (78.0-93.0) fL MCH 27.9 (26.0-32.0) pg MCHC 35.6 (32.0-36.0) g/dL RDW Coeff of Roderick 13.8 (10.0-15.0) % Plt Count 166 D (130-400) x10^3/uL Neut % (Auto) 60.8 (50.0-80.0) % Lymph % (Auto) 27.2 (25.0-50.0) % Petroleum % (Auto) 8.7 (2.0-11.0) % Eos % (Auto) 1.1 (0.0-4.0) % Baso % (Auto) 2.2 H (0.2-1.2) % PT 12.9 H (10.0-12.8) SEC INR 1.1 L (2.0-3.5) Sodium 129 L* (136-145) mmol/L Potassium 3.2 L (3.5-5.1) mmol/L Chloride 88 L (98-107) mmol/L Carbon Dioxide 29 (21-32) mmol/L Anion Gap 15.2 (10-20) mmol/L BUN 7 (7-18) mg/dL Creatinine 0.6 (0.55-1.02) mg/dL Est Cr Clr Drug Dosing TNP Estimated GFR (MDRD) > 60 Glucose 241 H (74-106) mg/dL Lactic Acid (0.4-2.0) mmol/L Calcium 8.2 L (8.5-10.1) mg/dL Corrected Calcium 9.64 (8.5-10.1) mg/dL Total Bilirubin 0.5 (0.2-1.0) mg/dL AST 101 H (15-37) U/L ALT 19 (14-59) U/L Alkaline Phosphatase 125 H (46-116) U/L C-Reactive Protein 29.4 H (<=0.9) mg/dL Total Protein 6.7 (6.4-8.2) g/dL Albumin 2.2 L (3.4-5.0) g/dL Globulin 4.5 Albumin/Globulin Ratio 0.49 08/17/19 Range/Units 21:47 WBC (4.0-10.0) x10^3/uL RBC (4.00-5.50) x10^6/uL Hgb (12.0-16.0) g/dL Hct (33.0-47.0) % MCV (78.0-93.0) fL MCH (26.0-32.0) pg MCHC (32.0-36.0) g/dL RDW Coeff of Roderick (10.0-15.0) % Plt Count (130-400) x10^3/uL Neut % (Auto) (50.0-80.0) % Lymph % (Auto) (25.0-50.0) % Petroleum % (Auto) (2.0-11.0) % Eos % (Auto) (0.0-4.0) % Baso % (Auto) (0.2-1.2) % PT (10.0-12.8) SEC INR (2.0-3.5) Sodium (136-145) mmol/L Potassium (3.5-5.1) mmol/L Chloride (98-107) mmol/L Carbon Dioxide (21-32) mmol/L Anion Gap (10-20) mmol/L BUN (7-18) mg/dL Creatinine (0.55-1.02) mg/dL Est Cr Clr Drug Dosing Estimated GFR (MDRD) Glucose (74-106) mg/dL Lactic Acid 0.6 (0.4-2.0) mmol/L Calcium (8.5-10.1) mg/dL Corrected Calcium (8.5-10.1) mg/dL Total Bilirubin (0.2-1.0) mg/dL AST (15-37) U/L ALT (14-59) U/L Alkaline Phosphatase (46-116) U/L C-Reactive Protein (<=0.9) mg/dL Total Protein (6.4-8.2) g/dL Albumin (3.4-5.0) g/dL Globulin Albumin/Globulin Ratio Meds: Medications Generic Name Dose Route Start Last Admin Trade Name Freq PRN Reason Stop Dose Admin Sodium Chloride 1,000 mls @ 1,000 mls/hr 08/17/19 22:38 Normal Saline IV 08/17/19 23:37 .BOLUS ONE Discontinued Medications Generic Name Dose Route Start Last Admin Trade Name Freq PRN Reason Stop Dose Admin Acetaminophen 1,000 mg 08/17/19 21:38 Tylenol Extra Strength PO 08/17/19 21:39 ONETIME ONE Oxycodone/Acetaminophen 1 tab 08/17/19 22:09 08/17/19 22:16 Percocet 325-5 Mg PO 08/17/19 22:10 1 tab ONETIME ONE Administration Departure - Departure Time of Disposition: 22:57 Disposition: DC/Tfer to [facility] 02 Clinical Impression: Sepsis, Neutropenia associated with infection - Discharge Information Referrals: Destiny Escobedo MD [Primary Care Provider] - Forms: ED Department Discharge, Interfacility Transfer EMTALA Sepsis Event Note - Evaluation Sepsis Screening Result: Possible Sepsis Risk - Focused Exam Vital Signs: Vital Signs Temp Pulse Resp BP Pulse Ox 08/17/19 22:38 38.6 C H 116 H 18 135/53 L 88 L 08/17/19 21:27 39.4 C H 129 H 18 143/87 H 91 L Date Exam was Performed: 08/17/19 Time Exam was Performed: 22:53 - Problem List Review Problem List Initiated/Reviewed/Updated: Yes - My Orders Last 24 Hours: My Active Orders 08/17/19 21:32 Blood Culture x2 Reflex Set [OM.PC] Stat 08/17/19 21:39 Chest 1V Frontal [CR] Stat 08/17/19 21:41 CULTURE BLOOD [BC] Stat 08/17/19 21:47 CULTURE BLOOD [BC] Stat 08/17/19 22:38 Sodium Chloride 0.9% [Normal Saline] 1,000 ml IV .BOLUS - Assessment/Plan Last 24 Hours: My Active Orders 08/17/19 21:32 Blood Culture x2 Reflex Set [OM.PC] Stat 08/17/19 21:39 Chest 1V Frontal [CR] Stat 08/17/19 21:41 CULTURE BLOOD [BC] Stat 08/17/19 21:47 CULTURE BLOOD [BC] Stat 08/17/19 22:38 Sodium Chloride 0.9% [Normal Saline] 1,000 ml IV .BOLUS Plan: Pt. accepted by Dr. Mendosa at [place]. He feels as though the neutropenia is secondary possibly to the cubicin. She does have zosyn 4.5 gm infusing during transport. Pt. will be transported via [facility] ground ambulance. He was given a percocet for pain shortly before departure. IV NS infusing at 250/hr. All questions were answered.
[2019-08-17] MEDS ORDERED: Sodium Chloride 0.9% 1,000 ML IV ONE (22:38)
[2019-08-17 22:39] VITALS: BP 135/53; PULSE 116
--- NOTE | 2019-08-18 07:57 | CR ---
[id number] RAD/RAD Chest PA or AP 1V EXAM: RAD Chest PA or AP 1V INDICATION: FEVER COMPARISON: June 19, 2019. DISCUSSION: Right-sided PICC in place with tip in the mid SVC. Since Cardiomediastinal silhouette is normal in size and contour. No infiltrate, effusion, pneumothorax, or edema. IMPRESSION: Negative for pneumonia or other acute findings. Danis Seals MD 08/18/19 0757 Thank you for allowing us to participate in the care of your patient.
== END 2019-08-17 23:18 | disposition short-term general hospital (02) ==
LOC: VM.ED 20:57
DX: A41.9 Sepsis, unspecified organism (principal); D70.3 Neutropenia due to infection; I10 Essential (primary) hypertension; K21.9 Gastro-esophageal reflux disease without esophagitis; E11.40 Type 2 diabetes mellitus with diabetic neuropathy, unspecified; F31.9 Bipolar disorder, unspecified; F41.9 Anxiety disorder, unspecified; F17.210 Nicotine dependence, cigarettes, uncomplicated; Z88.6 Allergy status to analgesic agent; Z79.899 Other long term (current) drug therapy; Z79.4 Long term (current) use of insulin; Z79.01 Long term (current) use of anticoagulants; Z86.718 Personal history of other venous thrombosis and embolism
CPT/HCPCS: 36415; 71045; 80053; 83605; 85025; 85610; 86140; 87040; 96360; 99284; A9270

== ENCOUNTER 2019-12-24 16:54 | Emergency (ER) | payer MEDICAID, OTHER, SELFPAY ==
[2019-12-24] MEDS ORDERED: Sodium Chloride 0.9% 10 ML Syringe FLUSH PRN (17:05)
--- NOTE | 2019-12-24 17:14 | EDM.PDOC ---
ED HPI GENERAL MEDICAL PROBLEM - General Chief Complaint: General Stated Complaint: general Time Seen by Provider: 12/24/19 16:54 Source of Information: Reports: Patient, EMS History Limitations: Reports: No Limitations - History of Present Illness INITIAL COMMENTS - FREE TEXT/NARRATIVE: Patient comes into the emergency department after sustaining a fall via ambulance. Patient states that she was trying to get in her wheelchair in her wheelchair slipped and she fell landing on her tailbone and her dump on her right leg. This happened approximately 3 hours ago dates that the pain has been excruciating in the right stump and her tailbone ever since. She is inconsolable. In route ambulance started an IV and give her 1 mg of Dilaudid. Patient has had no relief of that discomfort and pain. Patient does endorse using Suboxone she did take 1 mg of Suboxone today as well. Patient also states that she has had a significant moderate swelling and warmth on her right lower extremity. Patient was seen in the clinic this past week for her right below the knee amputation section. Patient was started on Keflex patient states that she has been taking her antibiotic as prescribed. But she has not noticed any changes or improvements either of her legs. Onset: Sudden Location: Reports: Pelvis, Lower Extremity, Right Quality: Reports: Throbbing Severity: Severe Worsens with: Reports: None Associated Symptoms: Reports: No Other Symptoms Sacral Pain Score (Numeric/FACES): 10 Right Leg Pain Score (Numeric/FACES): 10 - Related Data Allergies Allergy/AdvReac Type Severity Reaction Status Date / Time ibuprofen AdvReac Stomach Verified 08/17/19 21:27 Upset Home Meds: Home Meds Lurasidone HCl [Latuda] 120 mg PO DAILY 04/17/17 [History] atorvaSTATin [Lipitor] 10 mg PO BEDTIME 07/09/17 [History] Omeprazole 20 mg PO DAILY 02/12/18 [History] Acetaminophen [Tylenol Extra Strength] 1,000 mg PO Q8H PRN 04/25/18 [History] Gabapentin [Neurontin] 800 mg PO BID 04/25/18 [History] Ondansetron [Zofran ODT] 4 mg PO Q4H PRN 4 Days #12 tab.dis 05/14/18 [Rx] Insulin Glarg,Human.Rec.Analog [Lantus] 30 units SUBCUT DAILY 09/18/18 [History] Insulin Lispro [Humalog] 4 unit SUBCUT ASDIRECTED 09/18/18 [History] rOPINIRole [Requip] 0.5 mg PO TID tablet 09/20/18 [Rx] Buprenorphine HCl/Naloxone HCl [Zubsolv 5.7-1.4 mg Tablet Sl] 1 tab SL TID 02/04 [History] PARoxetine [Paxil] 40 mg PO DAILY 02/04/19 [History] Sennosides/Docusate Sodium [Senna-Docusate Sodium Tablet] 2 tab PO BID 02/04/19 [History] Sucralfate 1 gm PO QID PRN 02/04/19 [History] glucagon HCL [Glucagon HCl] 1 mg IM ASDIRECTED PRN 02/04/19 [History] Amitriptyline [Elavil] 50 mg PO BID 08/17/19 [History] amLODIPine [Norvasc] 10 mg PO DAILY 08/17/19 [History] polyethylene glycoL 3350 [MiraLAX] 17 gm PO DAILY 08/17/19 [History] Diclofenac Sodium [Voltaren 1% Gel] 2 gm TOP BID 12/24/19 [History] Hydrocortisone [Preparation H] 1 dose TP BID 12/24/19 [History] Lidocaine 2% [Xylocaine 2% Jelly] 1 dose TP DAILY PRN 12/24/19 [History] Mirtazapine [Remeron] 15 mg PO BEDTIME 12/24/19 [History] Prazosin [Minpress] 1 mg PO BEDTIME 12/24/19 [History] cephALEXin [Keflex] 500 mg PO QID 12/24/19 [History] traZODone HCl [Trazodone HCl] 100 mg PO BEDTIME 12/24/19 [History] Past Medical History HEENT History: Reports: Impaired Vision Cardiovascular History: Reports: Blood Clots/VTE/DVT, Hypertension, Other (See Below) Other Cardiovascular History: blood clot R leg Respiratory History: Reports: Other (See Below) Other Respiratory History: hx of acute respiratory failure Gastrointestinal History: Reports: Irritable Bowel Syndrome, PUD Other Gastrointestinal History: acid reflux Genitourinary History: Reports: Urinary Incontinence, Other (See Below) Other Genitourinary History: hx of UTI, hx of acute kidney injury Musculoskeletal History: Reports: Other (See Below) Other Musculoskeletal History: right foot drop Neurological History: Reports: Neuropathy, Diabetic Psychiatric History: Reports: Anxiety, Bipolar, PTSD, Other (See Below) Other Psychiatric History: chronic narcotic use Endocrine/Metabolic History: Reports: Diabetes, Type II, Other (See Below) Other Endocrine/Metabolic History: 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, hx of ketoacidosis Hematologic History: Reports: Other (See Below) - Past Surgical History GI Surgical History: Reports: Cholecystectomy, Other (See Below) Other GI Surgeries/Procedures: Esophagus/ stomach repair Musculoskeletal Surgical History: Reports: Hip Replacement, Other (See Below) Other Musculoskeletal Surgeries/Procedures:: hx of carpal tunnel repair Social & Family History - Family History Family Medical History: Noncontributory Other Psychiatric Family History: 2 brothers with substance abuse problems[ Endocrine/Metabolic: Reports: Diabetes, type II - Caffeine Use Caffeine Use: Reports: Coffee - Living Situation & Occupation Living situation: Reports: Occupation: Employed (has 2 children which she shares with jerry, mother has been living with her while she convalesces from DKA and mentla health issues. lizeth at [facility]) ED ROS GENERAL - Review of Systems Review Of Systems: See Below Constitutional: Reports: No Symptoms HEENT: Reports: No Symptoms Respiratory: Reports: No Symptoms Cardiovascular: Reports: No Symptoms Endocrine: Reports: No Symptoms Musculoskeletal: Reports: No Symptoms Skin: Reports: No Symptoms Neurological: Reports: No Symptoms Psychiatric: Reports: No Symptoms Hematologic/Lymphatic: Reports: No Symptoms Immunologic: Reports: No Symptoms ED EXAM, GENERAL - Physical Exam Exam: See Below Exam Limited By: Uncooperative (pt very angry when told we will wait to provide further pain medication till after imaging is reviewed) General Appearance: Alert, WD/WN, No Apparent Distress Eye Exam: Bilateral Eye: PERRL Nose: Normal Inspection, Normal Mucosa Throat/Mouth: Normal Inspection Head: Atraumatic, Normocephalic Respiratory/Chest: No Respiratory Distress, Lungs Clear, Normal Breath Sounds, No Accessory Muscle Use, Chest Non-Tender Cardiovascular: Normal Peripheral Pulses, Regular Rate, Rhythm, No Edema, No Murmur, No Rub GI/Abdominal: Normal Bowel Sounds, Soft, Non-Tender, No Distention, No Mass Extremities: Normal Inspection, Leg Pain (right leg below knee amputation- open wound with minimal drainage, healing wound. Warmth noted on stump along with tenderness with palpation. No swelling noted. left lower leg- redness, warmth and swelling noted ), Other (tailbone- severe pain with movement or palpation ) Neurological: Alert, Oriented, Normal Cognition Skin Exam: Warm, Dry, Intact, Normal Color Course - Vital Signs Last Recorded V/S: Last Vital Signs Temp 37.2 C 12/24/19 17:00 Pulse 94 12/24/19 17:00 Resp 16 12/24/19 17:00 BP 137/92 H 12/24/19 17:00 Pulse Ox 98 12/24/19 17:00 - Orders/Labs/Meds Orders: Active Orders 24 hr Category Date Time Status Sacrum [CR] Stat Exams 12/24/19 18:10 Ordered CULTURE BLOOD [BC] Stat Lab 12/24/19 17:15 Received CULTURE BLOOD [BC] Stat Lab 12/24/19 17:45 Received Sodium Chloride 0.9% [Saline Flush] Med 12/24/19 17:05 Active 10 ml FLUSH ASDIRECTED PRN Blood Culture x2 Reflex Set [OM.PC] Stat Oth 12/24/19 17:04 Ordered Peripheral IV Insertion Adult [OM.PC] Stat Oth 12/24/19 17:04 Ordered Medication Orders Sodium Chloride (Saline Flush) 10 ml FLUSH ASDIRECTED PRN PRN Reason: Keep Vein Open Labs: Laboratory Tests 12/24/19 12/24/19 12/24/19 Range/Units 17:15 17:15 17:15 WBC 6.8 (4.0-10.0) x10^3/uL RBC 4.93 (4.00-5.50) x10^6/uL Hgb 13.9 D (12.0-16.0) g/dL Hct 39.3 (33.0-47.0) % MCV 79.7 (78.0-93.0) fL MCH 28.2 (26.0-32.0) pg MCHC 35.4 (32.0-36.0) g/dL RDW Coeff of Roderick 14.0 (10.0-15.0) % Plt Count 265 D (130-400) x10^3/uL Neut % (Auto) 63.2 (50.0-80.0) % Lymph % (Auto) 25.7 (25.0-50.0) % [place] % (Auto) 4.1 (2.0-11.0) % Eos % (Auto) 6.3 H (0.0-4.0) % Baso % (Auto) 0.7 (0.2-1.2) % Sodium 137 (136-145) mmol/L Potassium 4.8 (3.5-5.1) mmol/L Chloride 100 (98-107) mmol/L Carbon Dioxide 26 (21-32) mmol/L Anion Gap 15.8 (10-20) mmol/L BUN 8 (7-18) mg/dL Creatinine 0.7 (0.55-1.02) mg/dL Est Cr Clr Drug Dosing 115.00 mL/min Estimated GFR (MDRD) > 60 Glucose 489 H* (74-106) mg/dL Lactic Acid 1.5 (0.4-2.0) mmol/L Calcium 8.3 L (8.5-10.1) mg/dL Corrected Calcium 9.10 (8.5-10.1) mg/dL Total Bilirubin 0.4 (0.2-1.0) mg/dL AST 57 H (15-37) U/L ALT 76 H (14-59) U/L Alkaline Phosphatase 184 H (46-116) U/L NT-Pro-B Natriuret Pep 115 (<=125) pg/mL Total Protein 6.6 (6.4-8.2) g/dL Albumin 3.0 L (3.4-5.0) g/dL Globulin 3.6 Albumin/Globulin Ratio 0.83 Meds: Medications Generic Name Dose Route Start Last Admin Trade Name Freq PRN Reason Stop Dose Admin Sodium Chloride 10 ml 12/24/19 17:05 Saline Flush FLUSH ASDIRECTED PRN Keep Vein Open Discontinued Medications Generic Name Dose Route Start Last Admin Trade Name Freq PRN Reason Stop Dose Admin Ceftriaxone Sodium 1 gm 12/24/19 17:07 12/24/19 17:32 Rocephin IVPUSH 12/24/19 17:08 1 gm ONETIME ONE Administration Insulin Human Regular 8 unit 12/24/19 18:00 12/24/19 18:14 Humulin R IVPUSH 12/24/19 18:01 8 units ONETIME ONE Administration Morphine Sulfate 2 mg 12/24/19 17:25 12/24/19 17:32 Morphine IVPUSH 12/24/19 17:26 2 mg ONETIME ONE Administration - Re-Assessments/Exams Free Text/Narrative Re-Assessment/Exam: 12/24/19 18:13 Patients pain is much more tolerable after morphine. Pt also given insulin per patients at home sliding scale dosing. She advises she takes 8 units Free Text/Narrative Re-Assessment/Exam: 12/24/19 18:40 Pt feels back to her baseline and would like to go home. Departure - Departure Time of Disposition: 18:35 Disposition: Home, Self-Care 01 Condition: Good Clinical Impression: Hyperglycemia, Amputation stump infection Tailbone injury Qualifiers: Encounter type: initial encounter Qualified Code(s): S39.92XA - Unspecified injury of lower back, initial encounter - Discharge Information *PRESCRIPTION DRUG MONITORING PROGRAM REVIEWED*: Not Applicable *COPY OF PRESCRIPTION DRUG MONITORING REPORT IN PATIENT ISHAN: Not Applicable Instructions: Tailbone Injury, [id number], Hyperglycemia Referrals: Destiny Escobedo MD [Primary Care Provider] - Forms: ED Department Discharge Additional Instructions: 1. rest 2. increase your water intake 3. Continue all at home medications 4. Activity and diet as tolerated 5. Can take over the counter Tylenol or ibuprofen for any pain or discomfort 6. Follow up with PCP if symptoms continue, return, or progress 7. Call with any questions or concerns 8. Can use ice on the tailbone to help with discomfort and a donut cushion while sitting if pain persists 9. continue to keep the wounds clean and covered 10. Continue to take antibiotic as prescribed. Sepsis Event Note - Focused Exam Vital Signs: Vital Signs Temp Pulse Resp BP Pulse Ox 12/24/19 17:00 37.2 C 94 16 137/92 H 98 Date Exam was Performed: 12/24/19 Time Exam was Performed: 18:32 - My Orders Last 24 Hours: My Active Orders 12/24/19 17:04 Blood Culture x2 Reflex Set [OM.PC] Stat Peripheral IV Insertion Adult [OM.PC] Stat 12/24/19 17:05 Sodium Chloride 0.9% [Saline Flush] 10 ml FLUSH ASDIRECTED PRN 12/24/19 17:15 CULTURE BLOOD [BC] Stat 12/24/19 17:45 CULTURE BLOOD [BC] Stat 12/24/19 18:10 Sacrum [CR] Stat - Assessment/Plan Last 24 Hours: My Active Orders 12/24/19 17:04 Blood Culture x2 Reflex Set [OM.PC] Stat Peripheral IV Insertion Adult [OM.PC] Stat 12/24/19 17:05 Sodium Chloride 0.9% [Saline Flush] 10 ml FLUSH ASDIRECTED PRN 12/24/19 17:15 CULTURE BLOOD [BC] Stat 12/24/19 17:45 CULTURE BLOOD [BC] Stat 12/24/19 18:10 Sacrum [CR] Stat Assessment:: 1. right leg pain 2. left lower leg swelling 3. Tail bone discomfort 4. Hyperglycemia Plan: 1. Morphine 2mg IV given for 06/15 2. Labs completed in the ER. Results reviewed with the patient 3. Blood cultures completed 4. IV initiated in the emergency department 5. Rocephin 1gm given 6. Regular insulin given 8 units per patients at home sliding scale protocol 7. Xray completed of tailbone and right stump. Results reviewed with the patient. First tailbone image not definitive recommendations for a second attempt with a lateral view. 8. Patient and nursing staff was updated regarding the plan of care 9. Patient and family are agreeable to the above plan of care 10. All questions and concerns were addressed with the patient and family prior to discharge
[2019-12-24 17:15] VITALS: BP 137/92; PULSE 94
[2019-12-24] MEDS: Morphine 2 MG/ML Syringe IVPUSH ONE (17:32)
[2019-12-24] MEDS: cefTRIAXone 1 GM Vial IVPUSH ONE (17:32)
[2019-12-24 17:52] LABS: CHLORIDE,CL 100 mmol/L (98-107); SODIUM,NA 137 mmol/L (136-145)
[2019-12-24 17:53] LABS: ANION GAP 15.8 mmol/L (10-20)
--- NOTE | 2019-12-24 18:08 | CR ---
[id number] RAD/RAD Knee Right 1-2V EXAM: RAD Knee Right 1-2V INDICATION: FALL ON STUMP COMPARISON: None. DISCUSSION: Prior below the knee amputation. Soft tissue swelling is seen throughout the imaged lower extremity. Mild patellofemoral osteoarthritis. Osteopenia. No acute fracture or dislocation. IMPRESSION: 1. Diffuse soft tissue swelling. No acute fracture or dislocation. Isidoro Hidalgo MD 12/24/19 [id number] Thank you for allowing us to participate in the care of your patient.
--- NOTE | 2019-12-24 18:10 | CR ---
[id number] RAD/RAD Pelvis 1-2V EXAM: AP PELVIS CLINICAL DATA: Fall with tailbone pain. COMPARISON: None. FINDINGS: Soft tissue attenuation and patient positioning limit this assessment. There is exclusion of the lateral aspect of the right pelvis. Previous right hip fixation. Moderate osteoarthritis of the hips. No fracture or dislocation is identified. IMPRESSION: 1. No acute findings. Limited study. Isidoro Hidalgo MD 12/24/19 [id number] Thank you for allowing us to participate in the care of your patient.
[2019-12-24] MEDS: Insulin Regular, Human 100 Units/ML 3 ML Vial IVPUSH ONE (18:14)
--- NOTE | 2019-12-24 18:45 | CR ---
[id number] RAD/RAD Sacrum EXAM: RAD Sacrum INDICATION: TAILBONE PAIN COMPARISON: None. FINDINGS: Soft tissue attenuation somewhat limits assessment, but no fracture or other osseous abnormality is identified. IMPRESSION: 1. Negative exam. Isidoro Hidalgo MD 12/24/19 [id number] Thank you for allowing us to participate in the care of your patient.
== END 2019-12-24 18:40 | disposition home or self-care (01) ==
LOC: VM.ED 16:54
DX: T87.43 Infection of amputation stump, right lower extremity (principal); S39.92XA Unspecified injury of lower back, initial encounter; E11.65 Type 2 diabetes mellitus with hyperglycemia; I10 Essential (primary) hypertension; K21.9 Gastro-esophageal reflux disease without esophagitis; F41.9 Anxiety disorder, unspecified; F31.9 Bipolar disorder, unspecified; Z88.6 Allergy status to analgesic agent; Z79.4 Long term (current) use of insulin; Z79.899 Other long term (current) drug therapy; W01.0XXA Fall on same level from slipping, tripping and stumbling without subsequent striking against object, initial encounter
CPT/HCPCS: 36415; 72170; 72220; 73560; 80053; 83605; 83880; 85025; 87040; 96374; 96375; 99284; J0696; J1815; J2270

== ENCOUNTER 2020-04-05 14:55 | Inpatient (IN) | payer MEDICAID ==
[2020-04-05] MEDS ORDERED: Ondansetron 8 MG in Sodium Chloride 0.9% 100 ML IV ONE (15:25)
[2020-04-05] MEDS ORDERED: Sodium Chloride 0.9% 1,000 ML IV ONE (15:25)
--- NOTE | 2020-04-05 15:41 | EDM.PDOC ---
ED HPI GENERAL MEDICAL PROBLEM - General Chief Complaint: General Stated Complaint: nausea Time Seen by Provider: 04/05/20 15:00 Source of Information: Reports: Patient, Family History Limitations: Reports: Other (weakness/lethargy ) - History of Present Illness INITIAL COMMENTS - FREE TEXT/NARRATIVE: Patient comes into the emergency department with her mom with complaints of nausea and mouth sores. Patient states that her mouth sores began about 3 days ago and shortly after that nausea and vomiting. Patient was in the clinic yesterday and obtained miracle mouthwash but has slowly continued to progress going downhill. Patient is unable to keep anything down his greater than 10 episodes of vomiting the day. Has been continually dry heaving. Patient has also had large amount of diarrhea. Patient states she did have a COVID test completed and the results came back today is negative. Patient denies any fever but does state that she has left flank pain as well as stump soreness with drainage. Patient describes the mouth sores is very painful and unable to keep anything down due to the severe pain states that it does have. She states that she has not been able to use the miracle mouthwash due to the pain and discomfort. States that she does have flank pain. She describes the pain as throbbing sensation and worse with palpation. Patient states she is also had a decrease in urination any burning, density, or frequency. She does have a longstanding history of complicated diabetes which has resulted in dialysis in the past (currently not needed) and RBA. Patient does take her blood sugars regularly and states this morning that her blood sugars were in the 80s which are abnormal. Patient normally has a history of having higher blood sugars and presentation of DKA. Denies taking any new medications or change in her medications or diet. Mother states the patient has been complaining of stump pain and discomfort the past week. She did notice one episode of "liquid" squirting about 3-4 feet out of the wound when pressing on the area. The wound has has mild drainage daily the past few weeks but they have not noticed any redness, swelling, or warmth. Onset: Today Location: Reports: Abdomen Quality: Reports: Ache, Dull, Throbbing Severity: Severe Improves with: Reports: None Worsens with: Reports: None Associated Symptoms: Reports: No Other Symptoms Middle Back Pain Score (Numeric/FACES): 8 - Related Data Allergies Allergy/AdvReac Type Severity Reaction Status Date / Time ibuprofen AdvReac Stomach Verified 08/17/19 21:27 Upset Home Meds: Home Meds atorvaSTATin [Lipitor] 10 mg PO BEDTIME 07/09/17 [History] Omeprazole 20 mg PO DAILY 02/12/18 [History] Acetaminophen [Tylenol Extra Strength] 1,000 mg PO Q8H 04/25/18 [History] Gabapentin [Neurontin] 600 mg PO TID 04/25/18 [History] Insulin Glarg,Human.Rec.Analog [Lantus] 30 units SUBCUT DAILY 09/18/18 [History] Insulin Lispro [Humalog] 4 unit SUBCUT ASDIRECTED 09/18/18 [History] Buprenorphine HCl/Naloxone HCl [Zubsolv 5.7-1.4 mg Tablet Sl] 1 tab SL TID 02/04/19 [History] PARoxetine [Paxil] 60 mg PO DAILY 02/04/19 [History] Sennosides/Docusate Sodium [Senna-Docusate Sodium Tablet] 2 tab PO BID 02/04/19 [History] Sucralfate 1 gm PO QID PRN 02/04/19 [History] glucagon HCL [Glucagon HCl] 1 mg IM ASDIRECTED PRN 02/04/19 [History] amLODIPine [Norvasc] 10 mg PO DAILY 08/17/19 [History] polyethylene glycoL 3350 [MiraLAX] 17 gm PO DAILY 08/17/19 [History] Diclofenac Sodium [Voltaren 1% Gel] 2 gm TOP BID 12/24/19 [History] Hydrocortisone [Preparation H] 1 dose TP BID 12/24/19 [History] Lidocaine 2% [Xylocaine 2% Jelly] 1 dose TP DAILY PRN 12/24/19 [History] Mirtazapine [Remeron] 15 mg PO BEDTIME 12/24/19 [History] traZODone HCl [Trazodone HCl] 100 - 300 mg PO BEDTIME 12/24/19 [History] Dextrose [Glucose] 16 gm PO ASDIRECTED PRN 04/05/20 [History] Promethazine [Phenergan] 12.5 mg PO Q6H PRN 04/05/20 [History] clonazePAM [Clonazepam] 1 - 2 tab PO BID 04/05/20 [History] rOPINIRole [Requip] 0.5 mg PO TID 04/05/20 [History] risperiDONE 0.5 mg PO TID 04/05/20 [History] Past Medical History HEENT History: Reports: Impaired Vision Cardiovascular History: Reports: Blood Clots/VTE/DVT, Hypertension, Other (See Below) Other Cardiovascular History: blood clot R leg Respiratory History: Reports: Other (See Below) Other Respiratory History: hx of acute respiratory failure Gastrointestinal History: Reports: Irritable Bowel Syndrome, PUD Other Gastrointestinal History: acid reflux Genitourinary History: Reports: Urinary Incontinence, Other (See Below) Other Genitourinary History: hx of UTI, hx of acute kidney injury Musculoskeletal History: Reports: Other (See Below) Other Musculoskeletal History: right foot drop Neurological History: Reports: Neuropathy, Diabetic Psychiatric History: Reports: Anxiety, Bipolar, PTSD, Other (See Below) Other Psychiatric History: chronic narcotic use Endocrine/Metabolic History: Reports: Diabetes, Type II, Other (See Below) Other Endocrine/Metabolic History: 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, hx of ketoacidosis Hematologic History: Reports: Other (See Below) - Past Surgical History GI Surgical History: Reports: Cholecystectomy, Other (See Below) Other GI Surgeries/Procedures: Esophagus/ stomach repair Musculoskeletal Surgical History: Reports: Hip Replacement, Other (See Below) Other Musculoskeletal Surgeries/Procedures:: hx of carpal tunnel repair Social & Family History - Family History Family Medical History: Noncontributory Other Psychiatric Family History: 2 brothers with substance abuse problems[ Endocrine/Metabolic: Reports: Diabetes, type II - Caffeine Use Caffeine Use: Reports: Coffee - Living Situation & Occupation Living situation: Reports: Occupation: Employed (has 2 children which she shares with jerry, mother has been living with her while she convalesces from DKA and mentla health issues. lizeth at [facility]) ED ROS GENERAL - Review of Systems Review Of Systems: See Below Constitutional: Reports: Malaise, Weakness, Fatigue, Decreased Appetite. Denies: Fever, Chills HEENT: Reports: No Symptoms Respiratory: Denies: Shortness of Breath, Wheezing, Cough, Sputum Cardiovascular: Reports: No Symptoms Endocrine: Reports: Fatigue, Low Glucose GI/Abdominal: Reports: Abdominal Pain, Anorexia, Diarrhea, Decreased Appetite, N ausea, Vomiting : Reports: Flank Pain Musculoskeletal: Reports: No Symptoms Skin: Reports: Wound (left stump) Neurological: Reports: Difficulty Walking, Weakness Psychiatric: Reports: No Symptoms Hematologic/Lymphatic: Reports: No Symptoms Immunologic: Reports: No Symptoms ED EXAM, GENERAL - Physical Exam Exam: See Below Exam Limited By: No Limitations General Appearance: Lethargic Throat/Mouth: Inflammation, Other (Large amount of thrush on tongue, multiple mouth lesion throughout ) Head: Atraumatic, Normocephalic Neck: Normal Inspection, Supple, Non-Tender, Full Range of Motion Respiratory/Chest: No Respiratory Distress, Decreased Breath Sounds Cardiovascular: Normal Peripheral Pulses, Regular Rate, Rhythm GI/Abdominal: Normal Bowel Sounds, Tender Back Exam: CVA Tenderness (L) Extremities: Leg Pain (BKA- two open sore with mild drainage at the stump both measure dime size. No redness, warmth or foul smell noted ) Neurological: Alert, Slow to Respond Psychiatric: Normal Affect, Normal Mood Skin Exam: Warm, Dry, Other (right leg 1+ edema ) Course - Vital Signs Last Recorded V/S: Last Vital Signs Temp 36.8 C 04/05/20 22:00 Pulse 110 H 04/05/20 22:00 Resp 20 04/05/20 22:00 BP 120/61 04/05/20 22:00 Pulse Ox 99 04/05/20 22:00 - Orders/Labs/Meds Orders: Active Orders 24 hr Category Date Time Status Admission Status [Patient Status] [ADT] Routine ADT 04/05/20 17:22 Active AMMONIA [REF] Stat Lab 04/05/20 15:38 Received CULTURE BLOOD [BC] Stat Lab 04/05/20 15:33 Received CULTURE BLOOD [BC] Stat Lab 04/05/20 15:38 Received CULTURE WOUND [RM] Stat Lab 04/05/20 15:15 Received PROCALCITONIN [REF] Stat Lab 04/05/20 15:05 Received Fluconazole/Normal Saline [Diflucan in NS 200 MG/100 ML Med 04/05/20 15:45 Active ] 200 mg Premix Bag 1 bag IV Q24H Sodium Chloride 0.9% [Saline Flush] Med 04/05/20 15:18 Active 10 ml FLUSH ASDIRECTED PRN Blood Culture x2 Reflex Set [OM.PC] Stat Oth 04/05/20 15:18 Ordered Peripheral IV Insertion Adult [OM.PC] Stat Ot 04/05/20 15:18 Ordered Medication Orders Acetaminophen (Tylenol Extra Strength) 1,000 mg PO Q8H [facility] Last Admin: 04/05/20 19:50 Dose: 1,000 mg Documented by: OLVIN Amlodipine Besylate (Norvasc) 10 mg PO DAILY [facility] Atorvastatin Calcium (Lipitor) 10 mg PO BEDTIME [facility] Last Admin: 04/05/20 19:50 Dose: 10 mg Documented by: OLVIN Dextrose (Glutose 15) 16 gm PO ASDIRECTED PRN PRN Reason: Hypoglycemia Diclofenac Sodium (Voltaren 1% Gel) 2 gm TOP BID [facility] Last Admin: 04/05/20 21:35 Dose: Not Given Documented by: OLVIN Enoxaparin Sodium (Lovenox) 40 mg SUBCUT DAILY [facility] Gabapentin (Neurontin) 600 mg PO TID [facility] Last Admin: 04/05/20 19:49 Dose: 600 mg Documented by: OLVIN Glucagon (Glucagen) 1 mg IM ASDIRECTED PRN PRN Reason: Hypoglycemia Hydromorphone HCl (Dilaudid) 0.5 mg IVPUSH Q4H PRN PRN Reason: Pain Last Admin: 04/05/20 18:55 Dose: 0.5 mg Documented by: JOEY Fluconazole/Sodium Chloride (200 mg/ Premix) 100 mls @ 100 mls/hr IV Q24H [facility] Last Admin: 04/05/20 16:06 Dose: 100 mls/hr Documented by: BRIELLE Potassium Chloride/Sodium Chloride (Normal Saline With 20 Meq Kcl) 1,000 mls @ 150 mls/hr IV ASDIRECTED [facility] Last Admin: 04/05/20 18:59 Dose: 150 mls/hr Documented by: JOEY Insulin Human Regular 99 unit/ (Sodium Chloride) 99.99 mls @ 9.163 mls/hr IV TITRATE [facility]; Protocol Last Admin: 04/05/20 23:15 Dose: 0.1 units/kg/hr, 9.163 mls/hr Documented by: OLVIN Cosigned by: CAMACHO Piperacillin Sod/Tazobactam (Sod 3.375 gm/ Sodium Chloride) 100 mls @ 25 mls/hr IV Q8H [facility] Last Admin: 04/05/20 23:59 Dose: 25 mls/hr Documented by: OLVIN Insulin Glargine (Lantus) 30 unit SUBCUT DAILY [facility] Last Admin: 04/05/20 19:51 Dose: 30 units Documented by: OLVIN Metoclopramide HCl (Reglan) 5 mg IVPUSH Q4H PRN PRN Reason: Nausea Mirtazapine (Remeron) 15 mg PO BEDTIME [facility] Last Admin: 04/05/20 19:51 Dose: 15 mg Documented by: OLVIN Non-Formulary Medication (Nf Drug) 1 each PO TID PRN PRN Reason: Pain Omeprazole (Omeprazole) 20 mg PO DAILY [facility] Ondansetron HCl (Zofran) 4 mg IV Q4H PRN PRN Reason: Nausea/Vomiting Paroxetine HCl (Paxil) 60 mg PO DAILY [facility] Polyethylene Glycol (Miralax) 17 gm PO DAILY PRN PRN Reason: Constipation Promethazine HCl (Phenergan) 12.5 mg PO Q6H PRN PRN Reason: Nausea Risperidone (Risperidal) 0.5 mg PO TID [facility] Last Admin: 04/05/20 21:33 Dose: 0.5 mg Documented by: OLVIN Sodium Chloride (Saline Flush) 10 ml FLUSH ASDIRECTED PRN PRN Reason: Keep Vein Open Trazodone HCl (Trazodone) 100 mg PO BEDTIME [facility] Last Admin: 04/05/20 21:34 Dose: 100 mg Documented by: OLVIN Vancomycin HCl (Vancomycin) 125 mg PO QID [facility] Labs: Laboratory Tests 04/05/20 04/05/20 04/05/20 Range/Units 15:05 15:05 15:05 WBC 20.8 H* (4.0-10.0) x10^3/uL RBC 5.61 H (4.00-5.50) x10^6/uL Hgb 16.3 H D (12.0-16.0) g/dL Hct 46.5 (33.0-47.0) % MCV 82.9 D (78.0-93.0) fL MCH 29.1 (26.0-32.0) pg MCHC 35.1 (32.0-36.0) g/dL RDW Coeff of Roderick 14.1 (10.0-15.0) % Plt Count 400 D (130-400) x10^3/uL Add Manual Diff Yes Neutrophils % (Manual) 91 H (50-80) % Band Neutrophils % 2 (0-6) % Lymphocytes % (Manual) 4 L (25-50) % Monocytes % (Manual) 3 (2-11) % Platelet Estimate Adequate POC ABG pH (7.35-7.45) POC ABG pCO2 (35-45) mmHG POC ABG pO2 (80-105) mmHG POC ABG HCO3 (22-26) mmol/L POC ABG Total CO2 (23-27) mmol/L POC ABG O2 Sat (95-98) % POC ABG Base Excess (-2-3) mmol/L POC FiO2 Sodium 140 (136-145) mmol/L Potassium 3.8 (3.5-5.1) mmol/L Chloride 100 (98-107) mmol/L Carbon Dioxide 11 L D (21-32) mmol/L Anion Gap 32.8 H (10-20) mmol/L BUN 18 (7-18) mg/dL Creatinine 1.2 H (0.55-1.02) mg/dL Est Cr Clr Drug Dosing 67.08 mL/min Estimated GFR (MDRD) 51 Glucose 441 H* (74-106) mg/dL Lactic Acid 1.8 (0.4-2.0) mmol/L Calcium 9.1 (8.5-10.1) mg/dL Corrected Calcium 9.18 (8.5-10.1) mg/dL Total Bilirubin 1.1 H (0.2-1.0) mg/dL AST 23 (15-37) U/L ALT 38 (14-59) U/L Alkaline Phosphatase 173 H (46-116) U/L Creatine Kinase 43 (26-192) U/L C-Reactive Protein (<=0.9) mg/dL NT-Pro-B Natriuret Pep 247 H (<=125) pg/mL Total Protein 7.3 (6.4-8.2) g/dL Albumin 3.9 (3.4-5.0) g/dL Globulin 3.4 Albumin/Globulin Ratio 1.15 POC Result Comm Urine Color (YELLOW) Urine Appearance (CLEAR) Urine pH (5.0-8.0) Ur Specific [place] Urine Protein (NEGATIVE) mg/dL Urine Glucose (UA) (NEGATIVE) mg/dL Urine Ketones (NEGATIVE) mg/dL Urine Occult Blood (NEGATIVE) Urine Nitrite (NEGATIVE) Urine Bilirubin (NEGATIVE) Urine Urobilinogen (0.2) EU/dL Ur Leukocyte Esterase (NEGATIVE) U Hyaline Cast (Auto) Urine RBC (NOT SEEN) /HPF Urine WBC (NOT SEEN) /HPF Ur Squamous Epith Cells (NEGATIVE) /HPF Urine Bacteria (NEGATIVE) /HPF Urine Mucus (NEGATIVE) /LPF Urine HCG, Qual (NEGATIVE) Urine Opiates Screen (NEGATIVE) Ur Buprenorphine Scrn (NEGATIVE) Ur Oxycodone Screen (NEGATIVE) Ur EDDP (Meth Metab) (NEGATIVE) Urine Methadone Screen (NEGATIVE) Ur Barbituates Screen (NEGATIVE) Ur Tricyclics Screen (NEGATIVE) Ur Phencyclidine Scrn (NEGATIVE) Ur Amphetamines Screen (NEGATIVE) U Methamphetamines Scrn (NEGATIVE) Urine MDMA Screen (NEGATIVE) U Benzodiazepines Scrn (NEGATIVE) Urine Cocaine Screen (NEGATIVE) U Marijuana (THC) Screen (NEGATIVE) 04/05/20 04/05/20 04/05/20 Range/Units 15:05 16:30 16:30 WBC (4.0-10.0) x10^3/uL RBC (4.00-5.50) x10^6/uL Hgb (12.0-16.0) g/dL Hct (33.0-47.0) % MCV (78.0-93.0) fL MCH (26.0-32.0) pg MCHC (32.0-36.0) g/dL RDW Coeff of Roderick (10.0-15.0) % Plt Count (130-400) x10^3/uL Add Manual Diff Neutrophils % (Manual) (50-80) % Band Neutrophils % (0-6) % Lymphocytes % (Manual) (25-50) % Monocytes % (Manual) (2-11) % Platelet Estimate POC ABG pH (7.35-7.45) POC ABG pCO2 (35-45) mmHG POC ABG pO2 (80-105) mmHG POC ABG HCO3 (22-26) mmol/L POC ABG Total CO2 (23-27) mmol/L POC ABG O2 Sat (95-98) % POC ABG Base Excess (-2-3) mmol/L POC FiO2 Sodium (136-145) mmol/L Potassium (3.5-5.1) mmol/L Chloride (98-107) mmol/L Carbon Dioxide (21-32) mmol/L Anion Gap (10-20) mmol/L BUN (7-18) mg/dL Creatinine (0.55-1.02) mg/dL Est Cr Clr Drug Dosing mL/min Estimated GFR (MDRD) Glucose (74-106) mg/dL Lactic Acid (0.4-2.0) mmol/L Calcium (8.5-10.1) mg/dL Corrected Calcium (8.5-10.1) mg/dL Total Bilirubin (0.2-1.0) mg/dL AST (15-37) U/L ALT (14-59) U/L Alkaline Phosphatase (46-116) U/L Creatine Kinase (26-192) U/L C-Reactive Protein 1.2 H (<=0.9) mg/dL NT-Pro-B Natriuret Pep (<=125) pg/mL Total Protein (6.4-8.2) g/dL Albumin (3.4-5.0) g/dL Globulin Albumin/Globulin Ratio POC Result Comm Urine Color Yellow (YELLOW) Urine Appearance Slightly cloudy H (CLEAR) Urine pH 5.5 (5.0-8.0) Ur Specific [place] 1.025 Urine Protein 30 H (NEGATIVE) mg/dL Urine Glucose (UA) 250 H (NEGATIVE) mg/dL Urine Ketones >=160 H (NEGATIVE) mg/dL Urine Occult Blood Trace-intact H (NEGATIVE) Urine Nitrite Negative (NEGATIVE) Urine Bilirubin Moderate H (NEGATIVE) Urine Urobilinogen 0.2 (0.2) EU/dL Ur Leukocyte Esterase Negative (NEGATIVE) U Hyaline Cast (Auto) Moderate Urine RBC 5-10 H (NOT SEEN) /HPF Urine WBC 0-5 (NOT SEEN) /HPF Ur Squamous Epith Cells Few H (NEGATIVE) /HPF Urine Bacteria Rare (NEGATIVE) /HPF Urine Mucus Few H (NEGATIVE) /LPF Urine HCG, Qual (NEGATIVE) Urine Opiates Screen Negative (NEGATIVE) Ur Buprenorphine Scrn Positive H (NEGATIVE) Ur Oxycodone Screen Negative (NEGATIVE) Ur EDDP (Meth Metab) Negative (NEGATIVE) Urine Methadone Screen Negative (NEGATIVE) Ur Barbituates Screen Negative (NEGATIVE) Ur Tricyclics Screen Negative (NEGATIVE) Ur Phencyclidine Scrn Negative (NEGATIVE) Ur Amphetamines Screen Positive H (NEGATIVE) U Methamphetamines Scrn Positive H (NEGATIVE) Urine MDMA Screen Negative (NEGATIVE) U Benzodiazepines Scrn Negative (NEGATIVE) Urine Cocaine Screen Negative (NEGATIVE) U Marijuana (THC) Screen Negative (NEGATIVE) 04/05/20 04/05/20 Range/Units 16:30 16:44 WBC (4.0-10.0) x10^3/uL RBC (4.00-5.50) x10^6/uL Hgb (12.0-16.0) g/dL Hct (33.0-47.0) % MCV (78.0-93.0) fL MCH (26.0-32.0) pg MCHC (32.0-36.0) g/dL RDW Coeff of Roderick (10.0-15.0) % Plt Count (130-400) x10^3/uL Add Manual Diff Neutrophils % (Manual) (50-80) % Band Neutrophils % (0-6) % Lymphocytes % (Manual) (25-50) % Monocytes % (Manual) (2-11) % Platelet Estimate POC ABG pH 7.223 L* (7.35-7.45) POC ABG pCO2 20 L (35-45) mmHG POC ABG pO2 121 H (80-105) mmHG POC ABG HCO3 8 L (22-26) mmol/L POC ABG Total CO2 9 L (23-27) mmol/L POC ABG O2 Sat 98 (95-98) % POC ABG Base Excess -19 L (-2-3) mmol/L POC FiO2 0.21 Sodium (136-145) mmol/L Potassium (3.5-5.1) mmol/L Chloride (98-107) mmol/L Carbon Dioxide (21-32) mmol/L Anion Gap (10-20) mmol/L BUN (7-18) mg/dL Creatinine (0.55-1.02) mg/dL Est Cr Clr Drug Dosing mL/min Estimated GFR (MDRD) Glucose (74-106) mg/dL Lactic Acid (0.4-2.0) mmol/L Calcium (8.5-10.1) mg/dL Corrected Calcium (8.5-10.1) mg/dL Total Bilirubin (0.2-1.0) mg/dL AST (15-37) U/L ALT (14-59) U/L Alkaline Phosphatase (46-116) U/L Creatine Kinase (26-192) U/L C-Reactive Protein (<=0.9) mg/dL NT-Pro-B Natriuret Pep (<=125) pg/mL Total Protein (6.4-8.2) g/dL Albumin (3.4-5.0) g/dL Globulin Albumin/Globulin Ratio POC Result Comm Called critical res Urine Color (YELLOW) Urine Appearance (CLEAR) Urine pH (5.0-8.0) Ur Specific [place] Urine Protein (NEGATIVE) mg/dL Urine Glucose (UA) (NEGATIVE) mg/dL Urine Ketones (NEGATIVE) mg/dL Urine Occult Blood (NEGATIVE) Urine Nitrite (NEGATIVE) Urine Bilirubin (NEGATIVE) Urine Urobilinogen (0.2) EU/dL Ur Leukocyte Esterase (NEGATIVE) U Hyaline Cast (Auto) Urine RBC (NOT SEEN) /HPF Urine WBC (NOT SEEN) /HPF Ur Squamous Epith Cells (NEGATIVE) /HPF Urine Bacteria (NEGATIVE) /HPF Urine Mucus (NEGATIVE) /LPF Urine HCG, Qual Negative (NEGATIVE) Urine Opiates Screen (NEGATIVE) Ur Buprenorphine Scrn (NEGATIVE) Ur Oxycodone Screen (NEGATIVE) Ur EDDP (Meth Metab) (NEGATIVE) Urine Methadone Screen (NEGATIVE) Ur Barbituates Screen (NEGATIVE) Ur Tricyclics Screen (NEGATIVE) Ur Phencyclidine Scrn (NEGATIVE) Ur Amphetamines Screen (NEGATIVE) U Methamphetamines Scrn (NEGATIVE) Urine MDMA Screen (NEGATIVE) U Benzodiazepines Scrn (NEGATIVE) Urine Cocaine Screen (NEGATIVE) U Marijuana (THC) Screen (NEGATIVE) Meds: Medications Generic Name Dose Route Start Last Admin Trade Name Freq PRN Reason Stop Dose Admin Acetaminophen 1,000 mg 04/05/20 19:30 04/05/20 19:50 Tylenol Extra Strength PO 1,000 mg Q8H VIVIANA Administration Amlodipine Besylate 10 mg 04/06/20 08:00 Norvasc PO DAILY VIVIANA Atorvastatin Calcium 10 mg 04/05/20 20:00 04/05/20 19:50 Lipitor PO 10 mg BEDTIME VIVIANA Administration Dextrose 16 gm 04/05/20 20:04 Glutose 15 PO ASDIRECTED PRN Hypoglycemia Diclofenac Sodium 2 gm 04/05/20 20:00 04/05/20 21:35 Voltaren 1% Gel TOP Not Given BID [facility] Enoxaparin Sodium 40 mg 04/06/20 08:00 Lovenox SUBCUT DAILY [facility] Gabapentin 600 mg 04/05/20 20:00 04/05/20 19:49 Neurontin PO 600 mg TID [facility] Administration Glucagon 1 mg 04/05/20 19:18 Glucagen IM ASDIRECTED PRN Hypoglycemia Hydromorphone HCl 0.5 mg 04/05/20 18:35 04/05/20 18:55 Dilaudid IVPUSH 0.5 mg Q4H PRN Administration Pain Fluconazole/Sodium Chloride 100 mls @ 100 mls/hr 04/05/20 15:45 04/05/20 16:06 200 mg/ Premix IV 100 mls/hr Q24H VIVIANA Administration Potassium Chloride/Sodium Chloride 1,000 mls @ 150 mls/hr 04/05/20 18:45 04/05/20 18:59 Normal Saline With 20 Meq Kcl IV 150 mls/hr ASDIRECTED VIVIANA Administration Insulin Human Regular 99 unit/ 99.99 mls @ 9.163 mls/hr 04/05/20 19:30 04/05/20 23:15 Sodium Chloride IV 0.1 units/kg/hr TITRATE VIVIANA 9.163 mls/hr Administration Protocol 0.1 UNITS/KG/HR Piperacillin Sod/Tazobactam 100 mls @ 25 mls/hr 04/05/20 20:30 04/05/20 23:59 Sod 3.375 gm/ Sodium Chloride IV 25 mls/hr Q8H VIVIANA Administration Insulin Glargine 30 unit 04/05/20 19:30 04/05/20 19:51 Lantus SUBCUT 30 units DAILY [facility] Administration Metoclopramide HCl 5 mg 04/05/20 18:45 Reglan IVPUSH Q4H PRN Nausea Mirtazapine 15 mg 04/05/20 20:00 04/05/20 19:51 Remeron PO 15 mg BEDTIME [facility] Administration Non-Formulary Medication 1 each 04/05/20 21:38 Nf Drug PO TID PRN Pain Omeprazole 20 mg 04/06/20 08:00 Omeprazole PO DAILY [facility] Ondansetron HCl 4 mg 04/05/20 18:42 Zofran IV Q4H PRN Nausea/Vomiting Paroxetine HCl 60 mg 04/06/20 08:00 Paxil PO DAILY VIVIANA Polyethylene Glycol 17 gm 04/05/20 21:36 Miralax PO DAILY PRN Constipation Promethazine HCl 12.5 mg 04/05/20 19:18 Phenergan PO Q6H PRN Nausea Risperidone 0.5 mg 04/05/20 20:00 04/05/20 21:33 Risperidal PO 0.5 mg TID VIVIANA Administration Sodium Chloride 10 ml 04/05/20 15:18 Saline Flush FLUSH ASDIRECTED PRN Keep Vein Open Trazodone HCl 100 mg 04/05/20 20:00 04/05/20 21:34 Trazodone PO 100 mg BEDTIME VIVIANA Administration Vancomycin HCl 125 mg 04/06/20 08:00 Vancomycin PO QID VIVIANA Discontinued Medications Generic Name Dose Route Start Last Admin Trade Name Freq PRN Reason Stop Dose Admin Ceftriaxone Sodium 1 gm 04/05/20 15:55 04/05/20 16:06 Rocephin IVPUSH 04/05/20 15:56 1 gm ONETIME ONE Administration Dextrose 15 gm 04/05/20 19:18 Glutose 15 PO ASDIRECTED PRN Hypoglycemia Sodium Chloride 1,000 mls @ 999 mls/hr 04/05/20 15:25 04/05/20 15:41 Normal Saline IV 04/05/20 16:25 999 mls/hr ONETIME ONE Administration Ondansetron HCl 8 mg/ Sodium 104 mls @ 400 mls/hr 04/05/20 15:25 04/05/20 15:41 Chloride IV 04/05/20 15:40 400 mls/hr ONETIME ONE Administration Vancomycin HCl 1.75 gm/ Sodium 250 mls @ 145 mls/hr 04/05/20 17:15 04/05/20 17:38 Chloride IV 04/05/20 18:58 145 mls/hr STAT ONE Administration Magnesium Sulfate 2 gm/ Premix 50 mls @ 25 mls/hr 04/05/20 19:15 04/05/20 21:29 IV 04/05/20 21:14 25 mls/hr ONETIME ONE Administration Potassium Chloride 20 meq/ 50 mls @ 50 mls/hr 04/05/20 19:23 04/05/20 20:10 Premix IV 04/05/20 20:22 50 mls/hr ONETIME ONE Administration Insulin Human Regular 5 unit 04/05/20 17:16 04/05/20 17:39 Humulin R IVPUSH 04/05/20 17:17 5 unit ONETIME ONE Administration Polyethylene Glycol 17 gm 04/06/20 08:00 Miralax PO DAILY VIVIANA Senna/Docusate Sodium 2 tab 04/05/20 20:00 04/05/20 19:50 Senna Plus PO 2 tab BID VIVIANA Administration Departure - Departure Time of Disposition: 17:30 Disposition: Admitted As Inpatient 68 Condition: Fair Clinical Impression: Splenomegaly, Dehydration, Hyperglycemia DKA, type 1 Qualifiers: Diabetes mellitus complication detail: without coma Qualified Code(s): E10.10 - Type 1 diabetes mellitus with ketoacidosis without coma DKA (diabetic ketoacidoses) Qualifiers: Diabetes mellitus type: type 2 Diabetes mellitus complication detail: without coma Qualified Code(s): E11.10 - Type 2 diabetes mellitus with ketoacidosis without coma Sepsis Qualifiers: Sepsis type: sepsis due to unspecified organism Sepsis acute organ dysfunction status: unspecified Qualified Code(s): A41.9 - Sepsis, unspecified organism - Discharge Information *PRESCRIPTION DRUG MONITORING PROGRAM REVIEWED*: Not Applicable *COPY OF PRESCRIPTION DRUG MONITORING REPORT IN PATIENT ISHAN: Not Applicable Sepsis Event Note (ED) - Focused Exam Vital Signs: Vital Signs Temp Pulse Resp BP Pulse Ox 04/05/20 17:03 111 H 16 128/74 97 04/05/20 16:30 112 H 20 133/75 99 04/05/20 15:00 36.3 C 116 H 18 135/81 96 - My Orders Last 24 Hours: My Active Orders 04/05/20 15:05 PROCALCITONIN [REF] Stat 04/05/20 15:15 CULTURE WOUND [RM] Stat 04/05/20 15:18 Sodium Chloride 0.9% [Saline Flush] 10 ml FLUSH ASDIRECTED PRN Blood Culture x2 Reflex Set [OM.PC] Stat Peripheral IV Insertion Adult [OM.PC] Stat 04/05/20 15:33 CULTURE BLOOD [BC] Stat 04/05/20 15:38 AMMONIA [REF] Stat CULTURE BLOOD [BC] Stat 04/05/20 15:45 Fluconazole/Normal Saline [Diflucan in NS 200 MG/100 ML] 200 mg Premix Bag 1 bag IV Q24H 04/05/20 17:22 Admission Status [Patient Status] [ADT] Routine - Assessment/Plan Last 24 Hours: My Active Orders 04/05/20 15:05 PROCALCITONIN [REF] Stat 04/05/20 15:15 CULTURE WOUND [RM] Stat 04/05/20 15:18 Sodium Chloride 0.9% [Saline Flush] 10 ml FLUSH ASDIRECTED PRN Blood Culture x2 Reflex Set [OM.PC] Stat Peripheral IV Insertion Adult [OM.PC] Stat 04/05/20 15:33 CULTURE BLOOD [BC] Stat 04/05/20 15:38 AMMONIA [REF] Stat CULTURE BLOOD [BC] Stat 04/05/20 15:45 Fluconazole/Normal Saline [Diflucan in NS 200 MG/100 ML] 200 mg Premix Bag 1 bag IV Q24H 04/05/20 17:22 Admission Status [Patient Status] [ADT] Routine Assessment:: 1. Sepsis 2. nausea 3. lethargy 4. DKA Plan: 1. Sepsis protocol initiated and followed 2. Labs completed in the ER. Results reviewed with the patient 3. Blood cultures completed 4. IV initiated in the emergency department 5. IV fluids provided 6. UA/UC collected 7. Urine tox completed 8. Fluconazole 200mg IV given in ER for severe thrush 9. Zofran 8mg IV given to help with nausea 10. EKG completed in ER. 11. Rocephin 1gm given for WBC > 20. 12. Insulin given in ER 13. Consultation completed with-Dr. Lora who suggests this patient be transferred to a higher level of care due to the patients complexity and history. 14. Patient will be transferred to a higher level of care needing further medical and/or surgical interventions 15. Patient and nursing staff was updated regarding the plan of care 16. Patient and family are agreeable to the above plan of care 17. All questions and concerns were addressed with the patient and family prior to discharge
[2020-04-05] MEDS ORDERED: Fluconazole/Normal Saline 200 MG in Premix Bag 1 BAG IV SCH (15:45)
[2020-04-05] MEDS ORDERED: cefTRIAXone 1 GM Vial IVPUSH ONE (15:55)
[2020-04-05 16:13] LABS: ANION GAP 32.8 mmol/L (10-20)
--- NOTE | 2020-04-05 16:24 | CR ---
[id number] RAD/RAD Chest PA or AP 1V EXAM: SINGLE VIEW CHEST. INDICATION: DECREASED BREATH SOUNDS COMPARISON: CORRELATION IS MADE WITH AUGUST 17, 2019 FINDINGS: The lungs are clear The cardiac silhouette is stable IMPRESSION: NO ACUTE PROCESS Rasheed Goff MD 04/05/20 [id number] Thank you for allowing us to participate in the care of your patient.
--- NOTE | 2020-04-05 16:33 | CT ---
[id number] CT/CT Abdomen Pelvis WO IV Exam: CT Abdomen Pelvis WO IV Clinical Data: FLANK PAIN COMPARISON: CORRELATION IS MADE WITH MARCH 06, 2018 FINDINGS: There is moderate splenomegaly. There is no hydronephrosis There is no radiopaque calculus of either kidney There is a small upper pole right renal cyst There is motion artifact The gallbladder has been removed The pelvis shows no mass or adenopathy There is question of a mid right ureteral calculus on image 103, series 2 There is a 2 cm right adnexal cystic mass likely physiologic The remainder of the exam is unremarkable IMPRESSION: NO OBVIOUS ABNORMALITY CONSIDER FOLLOW-UP WITH IV CONTRAST IF NEEDED QUESTION OF 3 MM RADIOPAQUE CALCULUS MID RIGHT URETER ON IMAGE 103, SERIES 2 NOT SEEN PREVIOUSLY MODERATE SPLENOMEGALY Rasheed Goff MD 04/05/20 0901 Thank you for allowing us to participate in the care of your patient.
[2020-04-05 16:46] LABS: BUPRENORPHINE,URINE POSITIVE (NEGATIVE); MARIJUANA,URINE NEGATIVE (NEGATIVE); METHYLENEDIOXYMETHAMP,UR NEGATIVE (NEGATIVE); PHENCYCLIDINE,URINE NEGATIVE (NEGATIVE)
[2020-04-05] MEDS ORDERED: Insulin Regular, Human 100 Units/ML 3 ML Vial IVPUSH ONE (17:16)
[2020-04-05] MEDS ORDERED: HYDROmorphone 1 MG/ML Syringe IVPUSH PRN (18:35)
[2020-04-05] MEDS ORDERED: Ondansetron 4 MG/2 ML SDV IV PRN (18:42)
[2020-04-05] MEDS ORDERED: NS + KCl 20mEq/L 1,000 ML IV SCH (18:45)
[2020-04-05] MEDS ORDERED: Metoclopramide 10 MG/2 ML SDV IVPUSH PRN (18:45)
[2020-04-05] MEDS ORDERED: Magnesium Sulfate/Water 2 GM in Premix Bag 1 BAG IV ONE (19:15)
[2020-04-05] MEDS ORDERED: Glucagon,Human Recombinant 1 MG Vial IM PRN (19:18)
[2020-04-05] MEDS ORDERED: Glucose Gel 15 GM in 37.5 GM Tube PO PRN ×2 (19:18→20:04)
[2020-04-05] MEDS ORDERED: Promethazine 25 MG Tab PO PRN (19:18)
[2020-04-05] MEDS ORDERED: Potassium Chloride Riders 20 MEQ in Premix Bag 1 BAG IV ONE (19:23)
[2020-04-05] MEDS: Gabapentin 300 MG Cap PO SCH (19:49)
[2020-04-05] MEDS: Acetaminophen 500 MG Tab PO SCH (19:50)
[2020-04-05] MEDS: atorvaSTATin 10 MG Tab PO SCH (19:50)
[2020-04-05] MEDS: Mirtazapine 15 MG Tab PO SCH (19:51)
[2020-04-05] MEDS: Insulin Glarg,Human.Rec.Analog 100 Unit/ML SUBCUT SCH (19:51)
[2020-04-05] MEDS ORDERED: Piperacillin/Tazobactam 3.375 GM in Sodium Chloride 0.9% 100 ML IV SCH (20:30)
[2020-04-05] MEDS: risperiDONE 1 MG Tab PO SCH (21:33)
[2020-04-05] MEDS: traZODone 50 MG Tab PO SCH (21:34)
[2020-04-05] MEDS: Diclofenac Sodium 1% Gel 100 GM Tube TOP SCH (21:35)
[2020-04-05] MEDS ORDERED: Polyethylene Glycol 3350 Powder 17 GM Packet PO PRN (21:36)
[2020-04-05] MEDS ORDERED: Non-Formulary Medication 1 Each PO PRN (21:38)
[2020-04-05] MEDS: Insulin Regular, Human 99 UNIT in Sodium Chloride 0.9% 99 ML IV SCH ×2 (23:15)
[2020-04-06] MEDS: Piperacillin/Tazobactam 3.375 GM in Sodium Chloride 0.9% 100 ML IV SCH ×3 (01:17→16:52)
[2020-04-06] MEDS: Dextrose 5%-0.9% NaCl with KCl 1,000 ML IV SCH ×2 (02:39→09:22)
[2020-04-06] MEDS: Acetaminophen 500 MG Tab PO SCH ×3 (02:41→18:31)
[2020-04-06] MEDS ORDERED: Polyethylene Glycol 3350 Powder 17 GM Packet PO SCH (08:00)
[2020-04-06] MEDS: Gabapentin 300 MG Cap PO SCH ×3 (09:23→19:36)
[2020-04-06] MEDS: Enoxaparin 40 MG/0.4 ML Syringe SUBCUT SCH (09:23)
[2020-04-06] MEDS: amLODIPine 5 MG Tab PO SCH (09:23)
[2020-04-06] MEDS: Omeprazole 20 MG Cap.CR PO SCH (09:23)
[2020-04-06] MEDS: Diclofenac Sodium 1% Gel 100 GM Tube TOP SCH ×2 (09:24→19:40)
[2020-04-06] MEDS: Vancomycin 125 MG Cap PO SCH ×4 (09:24→19:37)
[2020-04-06] MEDS: PARoxetine 20 MG Tab PO SCH (09:24)
[2020-04-06] MEDS: risperiDONE 1 MG Tab PO SCH ×3 (09:24→19:40)
[2020-04-06] MEDS: Insulin Glarg,Human.Rec.Analog 100 Unit/ML SUBCUT SCH ×2 (09:25→09:31)
[2020-04-06] MEDS: Sodium Chloride 0.9% 10 ML Syringe FLUSH PRN (09:25)
[2020-04-06] MEDS: Nicotine 14 MG/24 Hr Patch TRDERM SCH (10:36)
--- NOTE | 2020-04-06 11:47 | HP ---
CHIEF COMPLAINT: Flank pain, nausea, vomiting, weakness, and mouth sores. HISTORY OF PRESENT ILLNESS: The mouth sores developed yesterday. They are quite sore. She is unable to really eat or drink anything. She told the provider initially she did not take any insulin today, then she told me she had taken it. She has a history of uncontrolled type 1 diabetes with recent A1c in January of .2. She did not have any fever. She did not notice any blood in her urine, but has had some diarrhea. She had COVID testing through the clinic recently which came back negative. She otherwise has no history of kidney stones, but was found to have a kidney stone on her CT. She is having severe pain. She is normally on Suboxone for pain, but tells me she has not taken it for days, but it did show up in her drug screen. She has noted less urine output. The patient states her blood sugar was actually low like 80 this morning to the ER staff, but it was over 400 here. She has had redness to her left BKA wound, but has not noticed any drainage. She has actually recently had a culture and been on antibiotics for that with Augmentin and Bactrim, completing courses from 03/15/2020 to 03/22/2020. Her surgery was way back in 08/2016. She had a nonhealing diabetic foot ulcer osteomyelitis. The patient is a smoker. She also had a right lower extremity chronic thrombosis which was reported to be due to her ICU stay. Her recent culture on the leg in February showed many Enterococcus and MRSA and Klebsiella. ALLERGIES: The patient's allergies include ibuprofen, causes upset stomach. MEDICATIONS: Her medication list is reviewed and does show her to have: 1. Magic mouthwash or viscous lidocaine mix 30 mL 3 times a day as needed for moderate pain. 2. Trazodone 100 to 300 at bedtime for sleep. 3. Klonopin 1 to 2 of the 0.5 mg tablets 2 times a day. 4. Risperdal 2 mg at bedtime. 5. Phenergan 12.5 by mouth four times a day as needed for nausea. 6. Hydrocortisone cream as needed. 7. Neurontin 600 three times a day. 8. Requip 0.5 t.i.d. 9. Paxil 20 mg 3 tablets daily. 10.Remeron 15 mg at bedtime. 11.Voltaren 2 g two times a day gel. 12.Lantus 30 units every night at bedtime. 13.Humalog 4 units before each meal plus 1 unit for every 50 mg above 150, max dose 12 daily. 14.Glucagon 1 mg IM as needed for low blood sugars. 15.Norvasc 10 mg daily. 16.Xylocaine gel for pain. 17.Tylenol 1000 three times a day. 18.Suboxone 8-2 mg three times a day. 19.Carafate 1 g four times a day as needed for gas pain. 20.MiraLAX 1 packet daily. 21.Prilosec 20 mg daily. 22.Lipitor 10 mg daily. 23.Senna 2 tablets two times a day. 24.Dextrose tablets as needed for low blood sugars. PAST MEDICAL HISTORY: Includes history of: 1. DVT in 04/2019 in the right lower extremity. 2. Bipolar disorder. 3. Cellulitis of the right lower extremity with osteomyelitis, then amputation as stated in HPI. 4. Chronic narcotic use including Suboxone. 5. Diabetic polyneuropathy secondary to type 1 diabetes. 6. Essential hypertension. 7. Genital warts. 8. MRSA in 02/2020 to her BKA stump. 9. Opioid dependence. 10.Posttraumatic stress disorder. 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 12.Secondary amenorrhea. 13.Smoker. 14.Uncontrolled type 1 diabetes. 15.Peptic ulcer disease. PAST SURGICAL HISTORY: Her surgeries include surgery in 1995 for that SCFE of the hip, Adrienne fundoplication, cholecystectomy, right gvrxt-iiy-pdxg amputation, carpal tunnel repair, and right foot surgery in 07/2019 with an incision and debridement. SOCIAL HISTORY: The patient is . She is a smoker. Denies any current alcohol use. She is not currently sexually active. She reported a couple of children. FAMILY HISTORY: Mother is alive with type 2 diabetes. Father is alive. She has a couple of brothers with substance abuse. REVIEW OF SYSTEMS: General: The patient has been quite fatigued and lethargic. She denied any fever or chills. HEENT: She has had sores in her mouth, but denies that her throat is sore. Has not had any trouble swallowing other than from the mouth pain. Cardiac: No chest pain. No palpitations. Respiratory: No cough. No shortness of breath. Gastrointestinal: As stated in HPI. No abdominal pain, but has had some loose stools at least several times today. Musculoskeletal: She has had flank pain in the back which is new, 10/10, in left lower back. Skin: On that left stump, just some mild patchy redness. No open sores. No drainage. It is well healed. Psychiatric/Neurologic: She has not been confused. Currently, she is answering questions appropriately. Genitourinary: No blood in the urine. Denied any burning to me. Roper catheter in place. The urine is reid color. LABORATORY DATA: White count 20.8, hemoglobin 16.3, platelets 400. I suspect the patient is quite hemoconcentrated. Her last clinic lab work showed a hemoglobin of 14.5, white count 6.6. Her pH 7.22, pCO2 of 20, bicarb 8. Sodium initially 140, potassium 3.8, chloride 100, bicarb 11, BUN 18, creatinine 1.2, glucose 441, lactic 1.8, calcium 9.1, magnesium 1.4, bilirubin 1.1, AST 23, ALT 38, alkaline phosphatase 173, CK 43, CRP 1.2, proBNP 247, albumin 3.9. UA showed 5 to 10 rbc's, 0 to 5 wbc's, greater than 160 ketones, 250 glucose. Toxicology positive for bupropion and amphetamines and methamphetamines. The patient denies any illicit use. Her chest x-ray did not show any infiltrate. Her COVID testing was negative that was done in the clinic yesterday and her CT scan of the abdomen report does include a question of a 3 mm calculus in the mid right ureter, moderate splenomegaly, 2 cm right adnexal cystic mass, likely physiologic. Gallbladder has been removed. ASSESSMENT: 1. Diabetic ketoacidosis, possibly exacerbated by some sepsis with significantly elevated white count and diarrhea. The patient will be started on oral vancomycin. We will send off Clostridium difficile testing. I will also place her on IV vancomycin and Zosyn. She did get Rocephin in the ER. The source of infection is not for sure known, potentially could be deep wound infection. However, her CRP is not significantly elevated. Could also be some noncompliance with insulin. We will treat her with IV fluids and insulin and replace electrolytes as indicated. 2. Type 1 diabetes, poorly controlled, now in diabetic ketoacidosis. The patient will be on her long-acting insulin. We will institute an insulin drip if her next lab work does not show a closure in her gap which is currently 29. 3. Kidney stone. The patient's pain she is telling me is on the left side. The small stone is on the right side. It is small enough that it would pass. We will just give her some Flomax tomorrow if she continues to have symptoms. I am going to hold off currently to avoid any drops in blood pressure. We will keep the Roper in place for strict in's and out's. 4. BKA with recent infection. No place to do any cultures. Again, we are doing vancomycin and Zosyn. Blood cultures have been sent. 5. Mouth sores, concern for candidiasis given her immunocompromised state due to uncontrolled diabetes. She was given some IV fluconazole 200 one dose in the ER. 6. Bipolar disorder. 7. Chronic opioid use, on Suboxone. This will be held to allow for some Dilaudid for pain control. I am also going to hold her benzodiazepines to prevent sedation. 8. Insomnia. I am going to give her lower dose, 100 of trazodone. 9. History of deep venous thrombosis. Drain and ICU stay provoked. She will be on Lovenox for deep venous thrombosis prophylaxis here. 10.Chronic pain. She is also on Neurontin 600 t.i.d. PLAN: The patient is admitted for acute cares. She will be placed on IV vancomycin, IV Zosyn, and oral vancomycin. Stool studies will be sent for C. diff. Her potassium is under 4. I am going to start her on normal saline with 20 of KCl. She has already received 1000 of normal saline in the ER. We will repeat blood work every 3 hours. We will do an Accu-Chek at least every 3 hours. We will hold off on the insulin drip until her next labs and particularly because we will need to give her 20 mEq of IV potassium now and also she got her Lantus dose now. We will continue her home medications for moods. We will repeat lab work again during the night and in the morning. Procalcitonin level sent off by the ER and pending. ESR will be checked in the morning. The patient is a code level 1. test negative. MKA: 04/05/2020 21:51:51 MODL: 04/06/2020 11:30:14 /[id number]
[2020-04-06] MEDS: Nystatin Susp 100,000 Unit/ML 5 ML UD Cup PO SCH ×3 (12:16→19:37)
[2020-04-06] MEDS: Insulin Regular, Human 99 UNIT in Sodium Chloride 0.9% 99 ML IV SCH ×2 (12:25)
[2020-04-06 13:56] LABS: CHLORIDE,CL 117 mmol/L (98-107); SODIUM,NA 148 mmol/L (136-145)
[2020-04-06] MEDS: D5 1/2 NS w/ 20 mEq/L KCl 1,000 ML IV SCH ×2 (15:06→21:40)
[2020-04-06 18:44] LABS: CHLORIDE,CL 113 mmol/L (98-107); SODIUM,NA 142 mmol/L (136-145)
[2020-04-06] MEDS ORDERED: Insulin Regular, Human 100 Units/ML 3 ML Vial SUBCUT ONE (19:00)
[2020-04-06] MEDS ORDERED: Insulin Lispro 100 Units/ML 3 ML Vial SUBCUT ONE ×2 (19:34→22:39)
[2020-04-06] MEDS: atorvaSTATin 10 MG Tab PO SCH (19:37)
[2020-04-06] MEDS: Mirtazapine 15 MG Tab PO SCH (19:38)
[2020-04-06] MEDS: traZODone 50 MG Tab PO SCH (19:40)
[2020-04-06] MEDS: Potassium Phosphate,Mb-Db/Sodium Phosphate,Mb-Db Packet PO SCH ×2 (20:15)
[2020-04-06 22:30] LABS: CHLORIDE,CL 112 mmol/L (98-107); SODIUM,NA 142 mmol/L (136-145)
[2020-04-07] MEDS: Piperacillin/Tazobactam 3.375 GM in Sodium Chloride 0.9% 100 ML IV SCH ×2 (00:30→09:45)
[2020-04-07] MEDS: Sodium Chloride 0.9% 10 ML Syringe FLUSH PRN (01:35)
[2020-04-07] MEDS: Acetaminophen 500 MG Tab PO SCH (03:45)
[2020-04-07 05:00] VITALS: BP 126/75; PULSE 82
[2020-04-07 08:44] LABS: CHLORIDE,CL 112 mmol/L (98-107); SODIUM,NA 144 mmol/L (136-145)
[2020-04-07 08:47] LABS: ANION GAP 11.6 mmol/L (10-20)
[2020-04-07] MEDS: PARoxetine 20 MG Tab PO SCH (09:44)
[2020-04-07] MEDS: Nystatin Susp 100,000 Unit/ML 5 ML UD Cup PO SCH (09:44)
[2020-04-07] MEDS: Enoxaparin 40 MG/0.4 ML Syringe SUBCUT SCH (09:44)
[2020-04-07] MEDS: Nicotine 14 MG/24 Hr Patch TRDERM SCH (09:44)
[2020-04-07] MEDS: Potassium Phosphate,Mb-Db/Sodium Phosphate,Mb-Db Packet PO SCH (09:44)
[2020-04-07] MEDS: Omeprazole 20 MG Cap.CR PO SCH (09:45)
[2020-04-07] MEDS: Gabapentin 300 MG Cap PO SCH (09:45)
[2020-04-07] MEDS: amLODIPine 5 MG Tab PO SCH (09:45)
[2020-04-07] MEDS: Insulin Glarg,Human.Rec.Analog 100 Unit/ML SUBCUT SCH (09:46)
[2020-04-07] MEDS: Diclofenac Sodium 1% Gel 100 GM Tube TOP SCH (09:46)
[2020-04-07] MEDS: risperiDONE 1 MG Tab PO SCH (09:54)
[2020-04-07] MEDS ORDERED: Acetaminophen/HYDROcodone 325-5 MG Tab PO ONE (09:57)
[2020-04-07] MEDS ORDERED: Acetaminophen/HYDROcodone 325-5 MG Tab PO PRN (09:57)
[2020-04-07] MEDS ORDERED: Magnesium Oxide 400 MG Tab PO SCH (10:15)
[2020-04-07] MEDS: Insulin Lispro 100 Units/ML 3 ML Vial SUBCUT SCH ×2 (10:22→13:03)
--- NOTE | 2020-04-07 10:59 | PN ---
Progress Note for ALBERTO BERNABE Date: 04/07/2020 Room #: VM.202 SUBJECTIVE: This is hospital day #3 on a 39-year-old admitted with diabetic ketoacidosis and concern for sepsis. The patient was quite somnolent most of her hospital stay. She was always able to answer questions okay. Yesterday, she was more sleepy. Her blood sugar was 83. She was given some glucose gel and improved, and finally ate some yogurt. Otherwise, her oral intake has been quite poor. Her insulin drip had been turned off earlier in the day and she had received her long-acting insulin. She had remained on D5, but this has now been discontinued last night after her lab work did show her anion gap to have closed. Otherwise, she is not having any trouble breathing. She has not had any fevers. Her biggest concern this morning is pain. She is normally on Suboxone. She does have diabetic neuropathy and has had a right zvpyb-dey-nmqg amputation. When she came in, she had a lot of left-sided low back pain. She tells me this has resolved, but now she has a like a cramp in her left calf area. There is no swelling, no wounds, no warmth. She has been on Lovenox for deep vein thrombosis prophylaxis. The right leg stump was also very tender when she came in and red. She did get 1 dose of IV Dilaudid initially, but has not gotten any since. The patient states at home she would take a Tylenol in addition to her Suboxone that she is on. She feels like she is withdrawing from it. We also discussed her Risperdal which was newly started. The patient states she had only been taking it 1 time a day. It had been ordered 3 times a day here as that is how her prescription was written. We did start holding doses yesterday. The patient is alert and feels like eating. She was asking the lab for pain medicine and then when the nurse and I walked in a few minutes later, she was sleeping peacefully. She has no signs of withdrawal from narcotics currently. She is no longer tachycardic. OBJECTIVE: Vital Signs: Her temperature 97.2, pulse 82, blood pressure 126/76, respiratory rate 14, O2 of 97% on room air. General: She is in no acute distress. Heart: Regular rate and rhythm. S1 and S2 without murmur. Lungs: Sounds are clear to auscultation bilaterally without crackles or wheezes. Abdomen: Nondistended. Extremities: Warm, dry. The right below the knee amputation stump shows an incision which is well healed. She does have 1 scab noted. Minimal redness. No warmth. No tenderness. No swelling today. There does not appear to be any deep areas, so I am not certain what the ER probed for her culture. Left leg is examined. Her calf is not swollen. There is softness to it. The Achilles tendon area is painful. The foot has a dorsal pedis pulse of 2+. She has a distal sore but that is just a superficial scab that is not tender on her great toe. Mental Status: She is alert and orientated x3. She is answering questions. LAB WORK: White count 6.7, hemoglobin 13.2, platelets 227. Sodium 144, potassium 3.6, chloride 112, bicarb 24, BUN 6, creatinine 0.7, glucose 184, calcium 7.9, bilirubin 0.4, AST 18, ALT 29, alkaline phosphatase 108, albumin 2.5. ASSESSMENT AND PLAN: 1. Diabetic ketoacidosis. Concern for sepsis as the cause versus not feeling well and not taking her insulin. Diabetic ketoacidosis has resolved. We will resume her home insulin regimen. She does, though, take 5 units with meals plus 2 units per carb choice. I am going to start with 4 units t.i.d. here given her hypoglycemia yesterday and the fact that she has not been eating much. 2. Type 1 diabetes, poorly controlled with diabetic neuropathy, on long-term insulin. She is on her Neurontin. 3. Kidney stone, right-sided. The patient was having left-sided back pain that has resolved. The stone was small and questionable. Therefore, we did not institute any treatment for it. No further workup needed unless it becomes a clinical symptomatic thing. 4. Below knee amputation with recent infections that cultures did grow methicillin-resistant Staphylococcus aureus. Culture here superficial culture it seems is showing Enterobacter. I am going to go ahead and stop the IV vancomycin, but we will continue IV Zosyn while she is here since she failed some outpatient antibiotics. 5. Mouth sores, concern for candidiasis. She got a dose of Diflucan. She is on oral nystatin. This seems to be improving. 6. Left calf cramping. The patient has a known history of low magnesium. I held that due to diarrhea. It was normal when checked yesterday. I am going to restart her oral magnesium. I will give her some potassium supplements also and we will monitor. I do not feel that clinically this seems to be a blood clot. However, if continued pain or swelling, we will get an ultrasound tomorrow. She is already on Lovenox for deep vein thrombosis prophylaxis. 7. Bipolar disorder. We will restart her Risperdal tonight but just once daily. 8. Chronic opioid use. Her Suboxone has been on hold here. We will get her mother to bring it in for her, so she can resume that. 9. Insomnia. She is on trazodone. 10.Deep vein thrombosis prophylaxis. She did have a previous deep vein thrombosis on an ICU stay that was provoked. Previous deep vein thrombosis was in her right leg. 11.Chronic pain. She is on her Neurontin 600 t.i.d. We will get Suboxone restarted. PLAN: The patient will continue acute cares. We stopped IV vancomycin, but I will continue IV Zosyn. We would like to complete antibiotics while she is inpatient and potentially send her home on no antibiotics since her inflammation markers, CRP, ESR were all acceptable. We will restart her oral magnesium. I will give her a dose of oral hydrocodone while we are waiting for her mother to bring in her Suboxone, then we will restart that. We will continue with the Accu-Cheks every 3 hours. We have restarted her meal insulin. We will adjust insulin doses at meals as needed. She will get her long-acting insulin again today. Lab work is planned for again this evening. Anticipate that the patient will be discharged home tomorrow. DONALDA: 04/07/2020 10:17:23 MODL: 04/07/2020 10:55:09 /[id number]
--- NOTE | 2020-04-08 02:50 | DISCH ---
PRIMARY DISCHARGE DIAGNOSES: 1. Diabetic ketoacidosis. 2. Concern for sepsis. However, no definitive source of infection was found, and her inflammatory markers looked okay. 3. Previous right swxnv-mdt-ikgs amputation with previous skin and soft tissue infection, recently completed outpatient antibiotics. Culture from the skin surface was growing Enterobacter. 4. Type 1 diabetes, poorly controlled with diabetic neuropathy, on long-term insulin. 5. Kidney stone, right-sided. The patient initially had severe left-sided low back pain, this resolved. 6. Chronic pain, on Suboxone. This was held during her stay as it was not available. She did receive 1 dose of IV Dilaudid on admission due to severe pain, and at that point, we were concerned she may have a deep osteomyelitis infection of the leg. 7. Mouth sores, probable candidiasis, likely due to uncontrolled diabetes, improved with Diflucan and nystatin. 8. Left leg cramping. This is a new symptom that started on the day of discharge. There was no swelling or concern that it was a DVT. However, she did previously have a DVT in her right leg. She was on DVT prophylaxis during her stay. It was felt it could be due to low magnesium. This was restarted. 9. Diarrhea. This resolved on admission. She had no diarrhea during her stay. 10.Bipolar disorder, on Risperdal. We had been giving her 3 times a day, but when she finally was more alert, she reported to us she takes it only once daily. The patient's sedation during her stay was felt to be due to her illness and did have a lower blood sugar to 83 and seemed to improve when it came up mentally. 11.Insomnia. REASON FOR ADMISSION: On the date of admission, this 39-year-old came into the ER with mouth sores, lethargy, nausea, and vomiting. Blood sugars were in the 400. Her bicarb was 8, pH was 7.2. She was diagnosed with DKA, which she has had in the past, but none recently. Her diabetes control is over 11. She told me she took her insulin today, but the ER provider said that they told her she had not. Urine drug screen was actually positive for methamphetamines and amphetamines along with her buprenorphine. The patient was started on IV fluid bolus and given IV insulin. She was started on DKA IV fluid protocols with potassium replacement. Eventually, she required switch over to D5 normal saline and D5 half-normal saline, and her lab work was monitored frequently. Her bicarb eventually did improve up to 22 yesterday evening and 24 this morning. Blood sugars were actually quite excellent in the 180s today so far. She was finally alert enough to eat a meal. I spoke with the patient, and she had not even expressed any interest of going home today. Then later I answered her call light, and she wanted her catheter removed, which we did discuss on rounds, and the nurse had just not gotten back in there to remove it yet, and that we would be repeating lab work at 5 o'clock, and I did feel that it would be fine for her to likely go home after that. It would give her a chance to get another dose of IV antibiotics. Despite the fact that her blood cultures and inflammatory markers looked well, I felt since she has recently been on outpatient antibiotics and infection could have contributed to this, and a little bit of leg redness, it would be reasonable to continue with the IV Zosyn. She received IV vancomycin during her stay which I discontinued. Probably not even 45 minutes later, I was ready to leave, and the nurse stated that the patient decided that she no longer wanted to stay and she was going to leave against medical advice. I informed the nurse that the patient literally only has a few more hours before her next lab work, her mother who needs to take her home was not even here yet, and that she should stay. However, the patient did decide to leave against medical advice. Therefore, no antibiotics or new prescriptions were given, and the patient should resume her previous medications and insulin, which we did discuss with her what she was already taking at home for insulin was like 5 units 3 times a day with meals plus an adjustment dose. The patient also was complaining of pain frequently throughout her stay including on the morning I spoke with her of her discharge, and it was 10/10 uncontrolled pain when the lab came in. By the time the nurse and I got in there to assess her, she was actually resting comfortably. The patient was told that it would be a good idea to restart Suboxone, but because it was not available, I would give her an oral hydrocodone, which we did. The patient was always polite and cooperative with me. She has had multiple frequent admissions and ER visits. I highly anticipate the patient will return for hospital care. I do feel that we provided her the best care that we could, and I had actually decided not to send her home on antibiotics prior to this occurring. She should follow up with her primary care provider as previously scheduled. I also feel the patient needs psychiatry support. MKA: 04/07/2020 22:16:19 MODL: 04/08/2020 02:42:31 /[id number]
--- NOTE | 2020-04-08 08:29 | PN ---
Progress Note for ALBERTO BERNABE Date: 04/06/2020 Room #: VM.202 SUBJECTIVE: This is hospital day #2 on a 39-year-old admitted with DKA and concern for sepsis along with diarrhea and concern for C. diff. The patient had been more somnolent and confused. She had been vomiting and dry heaving. She has a history of uncontrolled type 1 diabetes and has had DKA before. She recently the day prior to admission had severe mouth sores that occurred, was felt to be consistent with thrush. Did receive some IV Diflucan. Did consider cold sores, but clinically it did not seem like that, although she has a history of herpes. The patient's blood sugar was over 400. She received 1 L of fluids and 5 units of regular insulin. Her blood sugars came down into the 300s. She received her Lantus daily dosing and her blood sugars continued to be elevated in the upper 200s, but most concerning was her anion gap which was 29 on admission, was not closing and her bicarb has actually decreased from 11 to 8. Therefore, she was instituted on an insulin drip with bolus being reduced due to her already having a bolus and her blood sugar down to 284. Insulin drip was also initially held while her potassium was 3.5 and she did receive potassium replacement. The patient's pH on admission was 7.2. Her white count was 20,000. She still somnolent this morning, but she is able to wake up, follow commands, answer questions appropriately. She did get 1 dose of IV Dilaudid last evening. Her pain seems to be mostly in her BKA stump, but also in her good leg. She is on Neurontin. She has presumably some painful diabetic neuropathy. She did not eat anything, she states she does not have an appetite, but denies nausea. She says she still continues to have pain in the left low back. It is over the SI joint. Her CT showed a kidney stone on the right side, small. Otherwise, she has been afebrile. She has not actually had any diarrhea here. She is not short of breath. She is not coughing. OBJECTIVE: Vital Signs: Temperature 98.7, pulse 120, her telemetry has showed sinus tachycardia, blood pressure 106/64, respiratory rate 20, and O2 of 97% on room air. General: She is in no acute distress. Heart: Regular rate and rhythm. S1, S2 without murmurs, but tachycardic. Lungs: Lung sounds are clear to auscultation bilaterally without crackles or wheezes. Abdomen: Nondistended. She has mild generalized tenderness but no rebound or guarding. Extremities: Warm and dry. No edema. The right BKA stump does show some minimal redness. There is tenderness to palpation, but the incision line is well healed. There is no open sores or drainage. Mental Status: She is alert, she is orientated x3. LABORATORY DATA: Laboratory work did show yesterday the CK was normal 43. CRP was 1.2. ESR came back this morning at just 5, and procalcitonin did come back less than 0.05. Her white count improved to 15.2, hemoglobin 13.9, platelets 313. Sodium 141, potassium 3.9, chloride 111, bicarb 12, BUN 12, creatinine 1.1, glucose 289, calcium 8, phosphorus 2.1, magnesium up to 1.9, albumin 3. ASSESSMENT AND PLAN: 1. Diabetic ketoacidosis, possibly due to sepsis. Potential sources would be Clostridium difficile versus a skin and soft tissue infection, which she has been treated for outpatient antibiotics. However, all her inflammatory markers look okay. We will continue IV vancomycin and Zosyn today with pharmacy to dose, but I will discontinue antibiotics tomorrow if blood cultures remain negative. 2. Diarrhea with recent antibiotic use. She is prophylactically on oral vancomycin. Clostridium difficile test is pending. She actually has not had any bowel movement since admission. 3. Moderate malnutrition. Her albumin is 2. Diet is encouraged when she feels like eating. We will start her on meal insulin prior to turning off her drip. 4. Chronic opioid use, on Suboxone, which is currently on hold. She does have Dilaudid available for pain. 5. Amphetamine/methamphetamine screen positive. The patient denies any drug use. She had mildly elevated LFTs. Hepatitis panel was sent out. We will repeat a liver function tomorrow. 6. Diabetic neuropathy. She is on her Neurontin. 7. Anion gap metabolic acidosis due to diabetic ketoacidosis. Her anion gap has improved down to 18. We will repeat lab work at 1 p.m. Insulin drip to continue. She is now on D5 as she did go down under 250 with the insulin drip and is not eating. 8. Bipolar disorder. She is on her home medications. 9. Smoking. She will be started on a nicotine patch. 10.Thrush. I am going to start her on some oral nystatin. I do not feel she needs to discontinue fluconazole. PLAN: The patient will continue on acute cares for DKA with her insulin drip. She will continue IV antibiotics at least for another 24 hours while awaiting blood cultures. If she continues to have severe left low back pain, could consider further imaging like an MRI. However, clinically, I do not feel that we are missing a case of osteomyelitis here. She did have a small kidney stone, but it was on the other side. We will continue the catheter today for strict ins and outs while adjusting her fluids and electrolytes. Await C. diff testing. Continue oral vancomycin prophylactically. We will give her Lantus dose this morning as she normally would take it then and monitor blood sugars closely at least every 3 hours. She is on Lovenox for DVT prophylaxis. MKA: 04/06/2020 10:36:31 MODL: 04/06/2020 12:03:43 /[id number]
--- NOTE | 2020-04-10 15:42 | HP ---
ADDENDUM: PHYSICAL EXAMINATION: Vital Signs: Her blood pressure 135/81, respiratory rate 18, pulse 116, temperature 97.3, respiratory rate 18, and O2 of 96 on room air. General: She is in no acute distress, but she is quite lethargic. She is lying on her left side. She is in not dry heaving but feels quite nauseated. She is able to open her eyes and answer questions. HEENT: Her pupils are equal, round, and reactive to light. Her tongue is dry. She does have some sores noted on her tongue with whitish patches. Heart: Regular rate and rhythm. S1, S2 with tachycardia. Lungs: Lung sounds are clear to auscultation bilaterally without crackles or wheezes. Abdomen: Has positive bowel sounds. Soft, nontender. Extremities: She has a right below the knee amputation. It is exquisitely tender to palpation. There are no open sores or drainage. It is not obviously swollen. Her left lower extremity shows just a scab on her foot. No open sores. No redness, no drainage. Her calf is nontender. Back: Her low back area does show her to have pain in the right low back over the SI joint. Mental Status: She is alert and orientated x3. She is polite and cooperative but quite lethargic when I am visiting with her. MKA: 04/10/2020 14:36:49 MODL: 04/10/2020 15:02:21 /[id number]
== END 2020-04-07 12:50 | disposition left against medical advice (07) | DRG 871 ==
LOC: VM.ED 14:55 → VM.MS 17:26 → UNDOADMIN 17:26 → UNDODISIN 04-07 12:50
PROVIDERS: ADMIT Internal Medicine; ATTEND Internal Medicine
DX: A41.9 Sepsis, unspecified organism (principal); E10.10 Type 1 diabetes mellitus with ketoacidosis without coma; E44.0 Moderate protein-calorie malnutrition; R16.1 Splenomegaly, not elsewhere classified; E86.0 Dehydration; H54.7 Unspecified visual loss; I10 Essential (primary) hypertension; Z86.718 Personal history of other venous thrombosis and embolism; Z87.11 Personal history of peptic ulcer disease; K21.9 Gastro-esophageal reflux disease without esophagitis; K58.9 Irritable bowel syndrome, unspecified; E10.40 Type 1 diabetes mellitus with diabetic neuropathy, unspecified; F41.9 Anxiety disorder, unspecified; B37.0 Candidal stomatitis; F43.10 Post-traumatic stress disorder, unspecified; Z90.49 Acquired absence of other specified parts of digestive tract; Z96.649 Presence of unspecified artificial hip joint; Z83.3 Family history of diabetes mellitus; F11.90 Opioid use, unspecified, uncomplicated; F15.90 Other stimulant use, unspecified, uncomplicated; E11.42 Type 2 diabetes mellitus with diabetic polyneuropathy; F31.9 Bipolar disorder, unspecified; N20.0 Calculus of kidney; G47.00 Insomnia, unspecified; G89.29 Other chronic pain; T36.95XA Adverse effect of unspecified systemic antibiotic, initial encounter; R19.7 Diarrhea, unspecified; Z89.511 Acquired absence of right leg below knee; Z88.6 Allergy status to analgesic agent; Z79.899 Other long term (current) drug therapy; Z86.14 Personal history of Methicillin resistant Staphylococcus aureus infection; Z79.4 Long term (current) use of insulin; Z68.29 Body mass index [BMI] 29.0-29.9, adult
CPT/HCPCS: 36415; 36600; 51702; 71045; 74176; 80053; 80069; 80074; 80305-QW; 81001; 81025; 82140; 82550; 82803; 82962; 83605; 83735; 83880; 84145; 85025; 85652; 86140; 87040; 87070; 87077; 87186; 93005; 96374; 96375; 99284-GF; 99285-25; A9270-GY; J0696; J1170; J1450; J1650; J1815-GY; J2405; J2543; J3370; J3475; J3480; J7030; J7050

== ENCOUNTER 2020-04-29 05:16 | Emergency (ER) | payer MEDICAID, OTHER ==
[2020-04-29] MEDS ORDERED: Sodium Chloride 0.9% 10 ML Syringe FLUSH PRN (05:33)
[2020-04-29] MEDS ORDERED: Sodium Chloride 0.9% 1,000 ML IV ONE ×3 (05:34→08:23)
[2020-04-29] MEDS ORDERED: Ondansetron 4 MG/2 ML SDV IVPUSH ONE (05:34)
--- NOTE | 2020-04-29 05:40 | EDM.PDOC ---
ED HPI GENERAL MEDICAL PROBLEM - General Chief Complaint: General Stated Complaint: Weakness Time Seen by Provider: 04/29/20 05:21 Source of Information: Reports: Patient, EMS - History of Present Illness INITIAL COMMENTS - FREE TEXT/NARRATIVE: Siobhan is a 39 y/o female who is brought to the ER by EMS for nausea, vomiting, and weakness. She apparently has been getting sicker through the night. She last ate yesterday morning. She is a Type 1 Diabetic with a long medical history and it is not uncommon for her to present with DKA. Back Pain Score (Numeric/FACES): 10 - Related Data Allergies Allergy/AdvReac Type Severity Reaction Status Date / Time ibuprofen AdvReac Stomach Verified 04/29/20 06:22 Upset Home Meds: Home Meds atorvaSTATin [Lipitor] 10 mg PO BEDTIME 07/09/17 [History] Omeprazole 20 mg PO DAILY 02/12/18 [History] Acetaminophen [Tylenol Extra Strength] 1,000 mg PO Q8H 04/25/18 [History] Gabapentin [Neurontin] 600 mg PO TID 04/25/18 [History] Insulin Glarg,Human.Rec.Analog [Lantus] 30 units SUBCUT DAILY 09/18/18 [History] Insulin Lispro [Humalog] 4 unit SUBCUT ASDIRECTED 09/18/18 [History] Buprenorphine HCl/Naloxone HCl [Zubsolv 5.7-1.4 mg Tablet Sl] 1 tab SL TID 02/04/19 [History] PARoxetine [Paxil] 60 mg PO DAILY 02/04/19 [History] Sennosides/Docusate Sodium [Senna-Docusate Sodium Tablet] 2 tab PO BID 02/04/19 [History] Sucralfate 1 gm PO QID PRN 02/04/19 [History] glucagon HCL [Glucagon HCl] 1 mg IM ASDIRECTED PRN 02/04/19 [History] amLODIPine [Norvasc] 10 mg PO DAILY 08/17/19 [History] polyethylene glycoL 3350 [MiraLAX] 17 gm PO DAILY 08/17/19 [History] Diclofenac Sodium [Voltaren 1% Gel] 2 gm TOP BID 12/24/19 [History] Hydrocortisone [Preparation H] 1 dose TP BID 12/24/19 [History] Lidocaine 2% [Xylocaine 2% Jelly] 1 dose TP DAILY PRN 12/24/19 [History] Mirtazapine [Remeron] 15 mg PO BEDTIME 12/24/19 [History] traZODone HCl [Trazodone HCl] 100 - 300 mg PO BEDTIME 12/24/19 [History] Dextrose [Glucose] 16 gm PO ASDIRECTED PRN 04/05/20 [History] Promethazine [Phenergan] 12.5 mg PO Q6H PRN 04/05/20 [History] clonazePAM [Clonazepam] 1 - 2 tab PO BID 04/05/20 [History] rOPINIRole [Requip] 0.5 mg PO TID 04/05/20 [History] risperiDONE 0.5 mg PO TID 04/05/20 [History] Past Medical History HEENT History: Reports: Impaired Vision Cardiovascular History: Reports: Blood Clots/VTE/DVT, Hypertension, Other (See Below) Other Cardiovascular History: blood clot R leg Respiratory History: Reports: Other (See Below) Other Respiratory History: hx of acute respiratory failure Gastrointestinal History: Reports: Irritable Bowel Syndrome, PUD Other Gastrointestinal History: acid reflux Genitourinary History: Reports: Urinary Incontinence, Other (See Below) Other Genitourinary History: hx of UTI, hx of acute kidney injury [employer] History: Reports: Musculoskeletal History: Reports: Other (See Below) Other Musculoskeletal History: right foot drop Neurological History: Reports: Neuropathy, Diabetic Psychiatric History: Reports: Anxiety, Bipolar, PTSD, Other (See Below) Other Psychiatric History: chronic narcotic use Endocrine/Metabolic History: Reports: Diabetes, Type I, Other (See Below) Other Endocrine/Metabolic History: 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, hx of ketoacidosis Hematologic History: Reports: Other (See Below) - Past Surgical History GI Surgical History: Reports: Cholecystectomy, Other (See Below) Other GI Surgeries/Procedures: Esophagus/ stomach repair Musculoskeletal Surgical History: Reports: Hip Replacement, Other (See Below) Other Musculoskeletal Surgeries/Procedures:: hx of carpal tunnel repair Social & Family History - Family History Family Medical History: Noncontributory Other Psychiatric Family History: 2 brothers with substance abuse problems[ Endocrine/Metabolic: Reports: Diabetes, type II - Caffeine Use Caffeine Use: Reports: Coffee - Living Situation & Occupation Living situation: Reports: Occupation: Employed (has 2 children which she shares with jerry, mother has been living with her while she convalesces from DKA and mentla health issues. lizeth at [facility]) ED ROS GENERAL - Review of Systems Review Of Systems: See Below Reason Not Obtained: Patient will not answer any questions Constitutional: Reports: Weakness HEENT: Reports: No Symptoms Respiratory: Reports: No Symptoms Cardiovascular: Reports: No Symptoms Endocrine: Reports: Fatigue, High Glucose GI/Abdominal: Reports: Decreased Appetite, Nausea, Vomiting : Reports: No Symptoms Musculoskeletal: Reports: No Symptoms Skin: Reports: No Symptoms Neurological: Reports: Weakness Psychiatric: Reports: No Symptoms Hematologic/Lymphatic: Reports: No Symptoms Immunologic: Reports: No Symptoms ED EXAM, GENERAL - Physical Exam Exam: See Below Exam Limited By: No Limitations General Appearance: Alert, WD/WN, No Apparent Distress, Other (Adult female.) Ears: Normal External Exam, Normal Canal, Hearing Grossly Normal, Normal TMs Nose: Normal Inspection, Normal Mucosa Throat/Mouth: Other (Edentulous, tongue dry) Head: Atraumatic, Normocephalic Neck: Normal Inspection, Supple, Non-Tender Respiratory/Chest: Lungs Clear, Normal Breath Sounds Cardiovascular: Normal Peripheral Pulses, Regular Rate, Rhythm, No Edema GI/Abdominal: Normal Bowel Sounds, Soft, Non-Tender, No Mass (Female) Exam: Deferred Rectal (Female) Exam: Deferred Back Exam: Normal Inspection Extremities: Other (Note right BKA) Neurological: Alert, Oriented, CN II-XII Intact Psychiatric: Flat Affect Skin Exam: Warm, Dry, Intact, Rash (note funal type rash around unbilicus) Lymphatic: No Adenopathy EKG INTERPRETATION EKG Date: 04/29/20 Time: 05:23 Rhythm: Other (Sinus Tachycardia) Rate (Beats/Min): 129 [place]: Normal P-Wave: Present QRS: Normal ST-T: Normal QT: Normal Comparison: Other: (No Chnage from Previous EKG=04/29/2020) Course - Vital Signs Text/Narrative:: The patient was seen by the MECH[employer] MA[employer]TENA[employer] SUPERVISOR. Labs, EKG, and CXR ordered. A liter of NS and Zofran 4 mg IVP ordered. Patient is a difficult IV start and RN having hard time inserting IV. Nausea persisted and Compazine 10mg IVP was given. A second liter of NS was started. BC, Gases, and CXR were ordered. 0805 Note all lab results, reflect DKA. [facility] contacted and transfer requested. 0819 Dr Mendosa accepted the patient for transfer. [facility] to transport patient to [place]. Insulin gtt started at 0.1u/kg and IV hydration continued. Hourly blood sugars until departing the ER. Patient left with EMS in stable condition. Last Recorded V/S: Last Vital Signs Temp 36.5 C 04/29/20 05:20 Pulse 127 H 04/29/20 07:56 Resp 20 04/29/20 07:56 BP 142/72 H 04/29/20 07:56 Pulse Ox 97 04/29/20 07:56 - Orders/Labs/Meds Orders: Active Orders 24 hr Category Date Time Status Chest 1V Frontal [CR] Stat Exams 04/29/20 07:13 Taken CULTURE BLOOD [BC] Stat Lab 04/29/20 07:30 Results CULTURE BLOOD [BC] Stat Lab 04/29/20 07:37 Received Sodium Chloride 0.9% [Normal Saline] 1,000 ml Med 04/29/20 07:18 Active IV ONETIME Sodium Chloride 0.9% [Saline Flush] Med 04/29/20 05:33 Active 10 ml FLUSH ASDIRECTED PRN Blood Culture x2 Reflex Set [OM.PC] Stat Oth 04/29/20 07:14 Ordered Saline Lock Insert [OM.PC] Stat Oth 04/29/20 05:32 Ordered Medication Orders Sodium Chloride (Normal Saline) 1,000 mls @ 999 mls/hr IV ONETIME ONE Stop: 04/29/20 08:18 Last Admin: 04/29/20 07:32 Dose: 999 mls/hr Documented by: CHASTITY Sodium Chloride (Saline Flush) 10 ml FLUSH ASDIRECTED PRN PRN Reason: Keep Vein Open Labs: Laboratory Tests 04/29/20 04/29/20 04/29/20 Range/Units 05:50 06:00 06:00 WBC 16.9 H (4.0-10.0) x10^3/uL RBC 5.21 (4.00-5.50) x10^6/uL Hgb 15.3 D (12.0-16.0) g/dL Hct 44.5 (33.0-47.0) % MCV 85.4 D (78.0-93.0) fL MCH 29.4 (26.0-32.0) pg MCHC 34.4 (32.0-36.0) g/dL RDW Coeff of Roderick 14.6 (10.0-15.0) % Plt Count 403 H D (130-400) x10^3/uL Add Manual Diff Yes Neutrophils % (Manual) 91 H (50-80) % Band Neutrophils % 1 (0-6) % Lymphocytes % (Manual) 3 L (25-50) % Reactive Lymphs % 1 H (0) % Monocytes % (Manual) 4 (2-11) % Platelet Estimate Increased H Spherocytes 1+ slight H [place] Cells 3+ marked H PT 11.3 (9.5-12.3) SEC INR 1.0 L (2.0-3.5) APTT 23.2 L (25.6-32.8) SEC POC ABG pH (7.35-7.45) POC ABG pCO2 (35-45) mmHG POC ABG pO2 (80-105) mmHG POC ABG HCO3 (22-26) mmol/L POC ABG O2 Sat (95-98) % POC ABG Base Excess (-2-3) mmol/L POC FiO2 Sodium (136-145) mmol/L Potassium (3.5-5.1) mmol/L Chloride (98-107) mmol/L Carbon Dioxide (21-32) mmol/L Anion Gap (10-20) mmol/L BUN (7-18) mg/dL Creatinine (0.55-1.02) mg/dL Est Cr Clr Drug Dosing Estimated GFR (MDRD) Glucose (74-106) mg/dL Lactic Acid (0.4-2.0) mmol/L Calcium (8.5-10.1) mg/dL Corrected Calcium (8.5-10.1) mg/dL Total Bilirubin (0.2-1.0) mg/dL AST (15-37) U/L ALT (14-59) U/L Alkaline Phosphatase (46-116) U/L Troponin I (<=0.056) ng/mL Total Protein (6.4-8.2) g/dL Albumin (3.4-5.0) g/dL Globulin Albumin/Globulin Ratio Amylase (25-115) U/L Lipase (73-393) U/L POC Result Comm Urine Color (YELLOW) Urine Appearance (CLEAR) Urine pH (5.0-8.0) Ur Specific [place] Urine Protein (NEGATIVE) mg/dL Urine Glucose (UA) (NEGATIVE) mg/dL Urine Ketones (NEGATIVE) mg/dL Urine Occult Blood (NEGATIVE) Urine Nitrite (NEGATIVE) Urine Bilirubin (NEGATIVE) Urine Urobilinogen (0.2) EU/dL Ur Leukocyte Esterase (NEGATIVE) Urine RBC (NOT SEEN) /HPF Urine WBC (NOT SEEN) /HPF Ur Squamous Epith Cells (NEGATIVE) /HPF Urine Bacteria (NEGATIVE) /HPF Urine Mucus (NEGATIVE) /LPF Urine Opiates Screen (NEGATIVE) Ur Buprenorphine Scrn (NEGATIVE) Ur Oxycodone Screen (NEGATIVE) Ur EDDP (Meth Metab) (NEGATIVE) Urine Methadone Screen (NEGATIVE) Ur Barbituates Screen (NEGATIVE) Ur Tricyclics Screen (NEGATIVE) Ur Phencyclidine Scrn (NEGATIVE) Ur Amphetamines Screen (NEGATIVE) U Methamphetamines Scrn (NEGATIVE) Urine MDMA Screen (NEGATIVE) U Benzodiazepines Scrn (NEGATIVE) Urine Cocaine Screen (NEGATIVE) U Marijuana (THC) Screen (NEGATIVE) COVID-19 (PRINCESS) Negative (NEGATIVE) 04/29/20 04/29/20 04/29/20 Range/Units 06:00 06:00 06:00 WBC (4.0-10.0) x10^3/uL RBC (4.00-5.50) x10^6/uL Hgb (12.0-16.0) g/dL Hct (33.0-47.0) % MCV (78.0-93.0) fL MCH (26.0-32.0) pg MCHC (32.0-36.0) g/dL RDW Coeff of Roderick (10.0-15.0) % Plt Count (130-400) x10^3/uL Add Manual Diff Neutrophils % (Manual) (50-80) % Band Neutrophils % (0-6) % Lymphocytes % (Manual) (25-50) % Reactive Lymphs % (0) % Monocytes % (Manual) (2-11) % Platelet Estimate Spherocytes [place] Cells PT (9.5-12.3) SEC INR (2.0-3.5) APTT (25.6-32.8) SEC POC ABG pH (7.35-7.45) POC ABG pCO2 (35-45) mmHG POC ABG pO2 (80-105) mmHG POC ABG HCO3 (22-26) mmol/L POC ABG O2 Sat (95-98) % POC ABG Base Excess (-2-3) mmol/L POC FiO2 Sodium 138 (136-145) mmol/L Potassium 5.2 H (3.5-5.1) mmol/L Chloride 97 L (98-107) mmol/L Carbon Dioxide 8 L D (21-32) mmol/L Anion Gap 38.2 H (10-20) mmol/L BUN 21 H (7-18) mg/dL Creatinine 1.2 H (0.55-1.02) mg/dL Est Cr Clr Drug Dosing TNP Estimated GFR (MDRD) 51 Glucose 486 H* (74-106) mg/dL Lactic Acid 2.1 H* (0.4-2.0) mmol/L Calcium 9.2 (8.5-10.1) mg/dL Corrected Calcium 8.88 (8.5-10.1) mg/dL Total Bilirubin 0.9 (0.2-1.0) mg/dL AST 32 (15-37) U/L ALT 32 (14-59) U/L Alkaline Phosphatase 163 H (46-116) U/L Troponin I < 0.017 (<=0.056) ng/mL Total Protein 8.2 (6.4-8.2) g/dL Albumin 4.4 (3.4-5.0) g/dL Globulin 3.8 Albumin/Globulin Ratio 1.16 Amylase 7 L (25-115) U/L Lipase 52 L (73-393) U/L POC Result Comm Urine Color (YELLOW) Urine Appearance (CLEAR) Urine pH (5.0-8.0) Ur Specific [place] Urine Protein (NEGATIVE) mg/dL Urine Glucose (UA) (NEGATIVE) mg/dL Urine Ketones (NEGATIVE) mg/dL Urine Occult Blood (NEGATIVE) Urine Nitrite (NEGATIVE) Urine Bilirubin (NEGATIVE) Urine Urobilinogen (0.2) EU/dL Ur Leukocyte Esterase (NEGATIVE) Urine RBC (NOT SEEN) /HPF Urine WBC (NOT SEEN) /HPF Ur Squamous Epith Cells (NEGATIVE) /HPF Urine Bacteria (NEGATIVE) /HPF Urine Mucus (NEGATIVE) /LPF Urine Opiates Screen (NEGATIVE) Ur Buprenorphine Scrn (NEGATIVE) Ur Oxycodone Screen (NEGATIVE) Ur EDDP (Meth Metab) (NEGATIVE) Urine Methadone Screen (NEGATIVE) Ur Barbituates Screen (NEGATIVE) Ur Tricyclics Screen (NEGATIVE) Ur Phencyclidine Scrn (NEGATIVE) Ur Amphetamines Screen (NEGATIVE) U Methamphetamines Scrn (NEGATIVE) Urine MDMA Screen (NEGATIVE) U Benzodiazepines Scrn (NEGATIVE) Urine Cocaine Screen (NEGATIVE) U Marijuana (THC) Screen (NEGATIVE) COVID-19 (PRINCESS) (NEGATIVE) 04/29/20 04/29/20 04/29/20 Range/Units 06:56 06:56 07:49 WBC (4.0-10.0) x10^3/uL RBC (4.00-5.50) x10^6/uL Hgb (12.0-16.0) g/dL Hct (33.0-47.0) % MCV (78.0-93.0) fL MCH (26.0-32.0) pg MCHC (32.0-36.0) g/dL RDW Coeff of Roderick (10.0-15.0) % Plt Count (130-400) x10^3/uL Add Manual Diff Neutrophils % (Manual) (50-80) % Band Neutrophils % (0-6) % Lymphocytes % (Manual) (25-50) % Reactive Lymphs % (0) % Monocytes % (Manual) (2-11) % Platelet Estimate Spherocytes [place] Cells PT (9.5-12.3) SEC INR (2.0-3.5) APTT (25.6-32.8) SEC POC ABG pH 7.060 L* (7.35-7.45) POC ABG pCO2 11 L (35-45) mmHG POC ABG pO2 130 H (80-105) mmHG POC ABG HCO3 3 L (22-26) mmol/L POC ABG O2 Sat 97 (95-98) % POC ABG Base Excess -27 L (-2-3) mmol/L POC FiO2 0.21 Sodium (136-145) mmol/L Potassium (3.5-5.1) mmol/L Chloride (98-107) mmol/L Carbon Dioxide (21-32) mmol/L Anion Gap (10-20) mmol/L BUN (7-18) mg/dL Creatinine (0.55-1.02) mg/dL Est Cr Clr Drug Dosing Estimated GFR (MDRD) Glucose (74-106) mg/dL Lactic Acid (0.4-2.0) mmol/L Calcium (8.5-10.1) mg/dL Corrected Calcium (8.5-10.1) mg/dL Total Bilirubin (0.2-1.0) mg/dL AST (15-37) U/L ALT (14-59) U/L Alkaline Phosphatase (46-116) U/L Troponin I (<=0.056) ng/mL Total Protein (6.4-8.2) g/dL Albumin (3.4-5.0) g/dL Globulin Albumin/Globulin Ratio Amylase (25-115) U/L Lipase (73-393) U/L POC Result Comm Called critical res Urine Color Yellow (YELLOW) Urine Appearance Clear (CLEAR) Urine pH 5.5 (5.0-8.0) Ur Specific [place] >=1.030 Urine Protein Trace H (NEGATIVE) mg/dL Urine Glucose (UA) 500 H (NEGATIVE) mg/dL Urine Ketones >=160 H (NEGATIVE) mg/dL Urine Occult Blood Trace-intact H (NEGATIVE) Urine Nitrite Negative (NEGATIVE) Urine Bilirubin Negative (NEGATIVE) Urine Urobilinogen 0.2 (0.2) EU/dL Ur Leukocyte Esterase Negative (NEGATIVE) Urine RBC 0-5 (NOT SEEN) /HPF Urine WBC 0-5 (NOT SEEN) /HPF Ur Squamous Epith Cells Rare (NEGATIVE) /HPF Urine Bacteria Rare (NEGATIVE) /HPF Urine Mucus Rare H (NEGATIVE) /LPF Urine Opiates Screen Negative (NEGATIVE) Ur Buprenorphine Scrn Negative (NEGATIVE) Ur Oxycodone Screen Negative (NEGATIVE) Ur EDDP (Meth Metab) Negative (NEGATIVE) Urine Methadone Screen Negative (NEGATIVE) Ur Barbituates Screen Negative (NEGATIVE) Ur Tricyclics Screen Negative (NEGATIVE) Ur Phencyclidine Scrn Negative (NEGATIVE) Ur Amphetamines Screen Positive H (NEGATIVE) U Methamphetamines Scrn Positive H (NEGATIVE) Urine MDMA Screen Negative (NEGATIVE) U Benzodiazepines Scrn Negative (NEGATIVE) Urine Cocaine Screen Negative (NEGATIVE) U Marijuana (THC) Screen Negative (NEGATIVE) COVID-19 (PRINCESS) (NEGATIVE) Meds: Medications Generic Name Dose Route Start Last Admin Trade Name Freq PRN Reason Stop Dose Admin Sodium Chloride 1,000 mls @ 999 mls/hr 04/29/20 07:18 04/29/20 07:32 Normal Saline IV 04/29/20 08:18 999 mls/hr ONETIME ONE Administration Sodium Chloride 10 ml 04/29/20 05:33 Saline Flush FLUSH ASDIRECTED PRN Keep Vein Open Discontinued Medications Generic Name Dose Route Start Last Admin Trade Name Freq PRN Reason Stop Dose Admin Sodium Chloride 1,000 mls @ 999 mls/hr 04/29/20 05:34 04/29/20 06:06 Normal Saline IV 04/29/20 06:34 999 mls/hr ONETIME ONE Administration Insulin Human Regular 9 unit 04/29/20 07:19 04/29/20 07:33 Humulin R IVPUSH 04/29/20 07:20 9 units ONETIME ONE Administration Ondansetron HCl 4 mg 04/29/20 05:34 04/29/20 06:40 Zofran IVPUSH 04/29/20 05:35 4 mg ONETIME ONE Administration Prochlorperazine Edisylate 10 mg 04/29/20 07:23 04/29/20 07:30 Compazine IV 04/29/20 07:24 10 mg ONETIME ONE Administration - Radiology Interpretation Free Text/Narrative:: CXR=no acute findings Departure - Departure Time of Disposition: 08:24 Disposition: DC/Tfer to Acute Hospital 02 Condition: Good Clinical Impression: Methamphetamine use DKA (diabetic ketoacidoses) Qualifiers: Diabetes mellitus type: type 2 Diabetes mellitus complication detail: without coma Qualified Code(s): E11.10 - Type 2 diabetes mellitus with ketoacidosis without coma - Discharge Information *PRESCRIPTION DRUG MONITORING PROGRAM REVIEWED*: Not Applicable *COPY OF PRESCRIPTION DRUG MONITORING REPORT IN PATIENT ISHAN: Not Applicable Forms: ED Department Discharge, Interfacility Transfer EMTALA Sepsis Event Note (ED) - Focused Exam Vital Signs: Vital Signs Temp Pulse Resp BP Pulse Ox 04/29/20 07:56 127 H 20 142/72 H 97 04/29/20 07:16 126 H 135/93 H 04/29/20 05:20 36.5 C 127 H 28 H 147/89 H 99 - My Orders Last 24 Hours: My Active Orders 04/29/20 05:32 Saline Lock Insert [OM.PC] Stat 04/29/20 05:33 Sodium Chloride 0.9% [Saline Flush] 10 ml FLUSH ASDIRECTED PRN 04/29/20 07:13 Chest 1V Frontal [CR] Stat 04/29/20 07:14 Blood Culture x2 Reflex Set [OM.PC] Stat 04/29/20 07:18 Sodium Chloride 0.9% [Normal Saline] 1,000 ml IV ONETIME 04/29/20 07:30 CULTURE BLOOD [BC] Stat 04/29/20 07:37 CULTURE BLOOD [BC] Stat - Assessment/Plan Last 24 Hours: My Active Orders 04/29/20 05:32 Saline Lock Insert [OM.PC] Stat 04/29/20 05:33 Sodium Chloride 0.9% [Saline Flush] 10 ml FLUSH ASDIRECTED PRN 04/29/20 07:13 Chest 1V Frontal [CR] Stat 04/29/20 07:14 Blood Culture x2 Reflex Set [OM.PC] Stat 04/29/20 07:18 Sodium Chloride 0.9% [Normal Saline] 1,000 ml IV ONETIME 04/29/20 07:30 CULTURE BLOOD [BC] Stat 04/29/20 07:37 CULTURE BLOOD [BC] Stat
[2020-04-29 06:36] LABS: ANION GAP 38.2 mmol/L (10-20); CHLORIDE,CL 97 mmol/L (98-107); SODIUM,NA 138 mmol/L (136-145)
[2020-04-29 06:40] LABS: PTT,PARTIAL THROMBOPLSTIN TIME 23.2 SEC (25.6-32.8)
[2020-04-29 07:04] LABS: BUPRENORPHINE,URINE NEGATIVE (NEGATIVE); MARIJUANA,URINE NEGATIVE (NEGATIVE); METHYLENEDIOXYMETHAMP,UR NEGATIVE (NEGATIVE); PHENCYCLIDINE,URINE NEGATIVE (NEGATIVE)
[2020-04-29] MEDS ORDERED: Insulin Regular, Human 100 Units/ML 3 ML Vial IVPUSH ONE (07:19)
[2020-04-29] MEDS ORDERED: Prochlorperazine 10 MG/2 ML SDV IV ONE (07:23)
--- NOTE | 2020-04-29 08:26 | CR ---
[id number] RAD/RAD Chest PA or AP 1V EXAM: RAD Chest PA or AP 1V INDICATION: WEAKNESS. COMPARISON: None. DISCUSSION: Cardiomediastinal silhouette is normal in size and contour. No infiltrate, effusion, pneumothorax, or edema. IMPRESSION: Negative examination of the chest. Danis Seals MD 04/29/20 0824 Thank you for allowing us to participate in the care of your patient.
[2020-04-29] MEDS ORDERED: Insulin Regular, Human 99 UNIT in Sodium Chloride 0.9% 99 ML IV SCH ×2 (08:30)
[2020-04-29 09:01] VITALS: BP 127/72; PULSE 131
== END 2020-04-29 09:44 | disposition short-term general hospital (02) ==
LOC: SUPCPDRO 05:16 → VM.ED 05:16
DX: E13.10 Other specified diabetes mellitus with ketoacidosis without coma (principal); F15.90 Other stimulant use, unspecified, uncomplicated; I10 Essential (primary) hypertension; F41.9 Anxiety disorder, unspecified; F31.9 Bipolar disorder, unspecified; K21.9 Gastro-esophageal reflux disease without esophagitis; R00.0 Tachycardia, unspecified; E13.40 Other specified diabetes mellitus with diabetic neuropathy, unspecified; Z88.6 Allergy status to analgesic agent; Z90.49 Acquired absence of other specified parts of digestive tract; Z79.4 Long term (current) use of insulin; Z79.899 Other long term (current) drug therapy; Z20.828 Contact with and (suspected) exposure to other viral communicable diseases
CPT/HCPCS: 36415; 36600; 71045; 80053; 80305; 81001; 82150; 82803; 82962; 83605; 83690; 84484; 85025; 85610; 85730; 87040; 87635; 93005; 93010; 96361; 96374; 96375; 99284; 99285; J0780; J1815; J2405; J7030; U0002

== ENCOUNTER 2020-05-26 22:32 | Inpatient (IN) | payer MEDICAID, OTHER ==
[2020-05-26] MEDS ORDERED: Sodium Chloride 0.9% 10 ML Syringe FLUSH PRN (23:04)
[2020-05-26] MEDS ORDERED: Promethazine 12.5 MG in Sodium Chloride 0.9% 100 ML IV ONE (23:09)
[2020-05-26] MEDS ORDERED: Sodium Chloride 0.9% 1,000 ML IV ONE (23:09)
[2020-05-26] MEDS ORDERED: Promethazine 25 MG/ML SDV ONE (23:20)
--- NOTE | 2020-05-26 23:24 | EDM.PDOC ---
ED HPI GENERAL MEDICAL PROBLEM - General Chief Complaint: General Stated Complaint: High blood sugars, vomiting Time Seen by Provider: 05/26/20 22:32 Source of Information: Reports: Patient History Limitations: Reports: No Limitations - History of Present Illness INITIAL COMMENTS - FREE TEXT/NARRATIVE: Pt. presents to ER with complaints of nausea, vomting, fatigue and body aches. She states that she has been fatigued for the past week. She states that she was treated for a UTI starting on the after being seen in the clinic. She was also tested for covid 19 that day. She states that she was called by her provider today stating that the covid was negative. Pt. reports that the GI symptoms have been severe since yesterday. She states that she has not been taking her insulin because she has been eating, but reports that her blood sugar this afternoon read "high'. Pt. has a history of poorly controlled type 1 DM with frequent hospitalizations for DKA. She has a history of R BKA. Last A1C was greater than 11. She was last hospitalized from 04/29-05/02 at [facility] with DKA. She was transferred to this facility. Mom states that she 'hasn't really been herself" since she was discharged. In reviewing her chart, it doesn't appear that she as seen for post hospital follow-up until she was seen on the as previously discussed. She states that she is a "brittle" diabetic and states that she is prone of episodes of hypoglycemia when given short acting/postprandial insulin. Pt. denies any diarrhea. No focal abdominal discomfort. She denies any chest pain or shortness of breath. Tmax at home was around 99, but she was afebrile on arrival to ER. Pt. denies any cough, chest congestion, sore throat, or congestion. Onset Date: 05/23/20 Associated Symptoms: Reports: Malaise, Nausea/Vomiting, Weakness. 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: Insulin whole abdomen Pain Score (Numeric/FACES): 5 - Related Data Allergies Allergy/AdvReac Type Severity Reaction Status Date / Time ibuprofen AdvReac Stomach Verified 05/26/20 23:09 Upset Home Meds: Home Meds atorvaSTATin [Lipitor] 10 mg PO BEDTIME 07/09/17 [History] Omeprazole 20 mg PO DAILY 02/12/18 [History] Acetaminophen [Tylenol Extra Strength] 1,000 mg PO Q8H 04/25/18 [History] Gabapentin [Neurontin] 600 mg PO TID 04/25/18 [History] Insulin Glarg,Human.Rec.Analog [Lantus] 30 units SUBCUT DAILY 09/18/18 [History] Insulin Lispro [Humalog] 4 unit SUBCUT ASDIRECTED 09/18/18 [History] Buprenorphine HCl/Naloxone HCl [Zubsolv 5.7-1.4 mg Tablet Sl] 1 tab SL TID 02/04/19 [History] PARoxetine [Paxil] 60 mg PO DAILY 02/04/19 [History] Sennosides/Docusate Sodium [Senna-Docusate Sodium Tablet] 2 tab PO BID 02/04/19 [History] Sucralfate 1 gm PO QID PRN 02/04/19 [History] glucagon HCL [Glucagon HCl] 1 mg IM ASDIRECTED PRN 02/04/19 [History] amLODIPine [Norvasc] 10 mg PO DAILY 08/17/19 [History] polyethylene glycoL 3350 [MiraLAX] 17 gm PO DAILY 08/17/19 [History] Diclofenac Sodium [Voltaren 1% Gel] 2 gm TOP BID 12/24/19 [History] Hydrocortisone [Preparation H] 1 dose TP BID 12/24/19 [History] Lidocaine 2% [Xylocaine 2% Jelly] 1 dose TP DAILY PRN 12/24/19 [History] Mirtazapine [Remeron] 15 mg PO BEDTIME 12/24/19 [History] traZODone HCl [Trazodone HCl] 100 - 300 mg PO BEDTIME 12/24/19 [History] Dextrose [Glucose] 16 gm PO ASDIRECTED PRN 04/05/20 [History] Promethazine [Phenergan] 12.5 mg PO Q6H PRN 04/05/20 [History] clonazePAM [Clonazepam] 1 - 2 tab PO BID 04/05/20 [History] rOPINIRole [Requip] 0.5 mg PO TID 04/05/20 [History] risperiDONE 2 mg PO BEDTIME 04/05/20 [History] Past Medical History HEENT History: Reports: Impaired Vision Cardiovascular History: Reports: Blood Clots/VTE/DVT, Hypertension, Other (See Below) Other Cardiovascular History: blood clot R leg Respiratory History: Reports: Other (See Below) Other Respiratory History: hx of acute respiratory failure Gastrointestinal History: Reports: Irritable Bowel Syndrome, PUD Other Gastrointestinal History: acid reflux Genitourinary History: Reports: Urinary Incontinence, Other (See Below) Other Genitourinary History: hx of UTI, hx of acute kidney injury 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: Musculoskeletal History: Reports: Other (See Below) Other Musculoskeletal History: right foot drop Neurological History: Reports: Neuropathy, Diabetic Psychiatric History: Reports: Anxiety, Bipolar, PTSD, Other (See Below) Other Psychiatric History: chronic narcotic use Endocrine/Metabolic History: Reports: Diabetes, Type I, Other (See Below) Other Endocrine/Metabolic History: 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, hx of ketoacidosis Hematologic History: Reports: Other (See Below) - Past Surgical History GI Surgical History: Reports: Cholecystectomy, Other (See Below) Other GI Surgeries/Procedures: Esophagus/ stomach repair Musculoskeletal Surgical History: Reports: Hip Replacement, Other (See Below) Other Musculoskeletal Surgeries/Procedures:: hx of carpal tunnel repair Social & Family History - Family History Family Medical History: Noncontributory Other Psychiatric Family History: 2 brothers with substance abuse problems[ Endocrine/Metabolic: Reports: Diabetes, type II - Caffeine Use Caffeine Use: Reports: Coffee - Living Situation & Occupation Living situation: Reports: Occupation: Employed (has 2 children which she shares with jerry, mother has been living with her while she convalesces from DKA and mentla health issues. lizeth at [facility]) ED ROS GENERAL - Review of Systems Review Of Systems: See Below Constitutional: Reports: No Symptoms HEENT: Reports: No Symptoms Respiratory: Reports: No Symptoms Cardiovascular: Reports: No Symptoms Endocrine: Reports: No Symptoms GI/Abdominal: Reports: Abdominal Pain, Nausea, Vomiting, Other (upper back pain, states from wretching.) : Reports: Other (UTI) Musculoskeletal: Reports: Muscle Pain Skin: Reports: No Symptoms Neurological: Reports: No Symptoms Psychiatric: Reports: No Symptoms Hematologic/Lymphatic: Reports: No Symptoms Immunologic: Reports: No Symptoms ED EXAM, GENERAL - Physical Exam Exam: See Below Exam Limited By: No Limitations General Appearance: Alert, Moderate Distress Eye Exam: Bilateral Eye: EOMI, PERRL Nose: Normal Inspection, Normal Mucosa Throat/Mouth: Normal Teeth, Normal Gums, Normal Voice, No Airway Compromise, Other (oral mucosa dry) Head: Atraumatic, Normocephalic Neck: Normal Inspection, Supple, Non-Tender, Full Range of Motion Respiratory/Chest: No Respiratory Distress, Lungs Clear, Normal Breath Sounds, No Accessory Muscle Use, Chest Non-Tender Cardiovascular: Normal Peripheral Pulses, Regular Rate, Rhythm, No Edema, No Gallop, No JVD, No Murmur, No Rub GI/Abdominal: Normal Bowel Sounds, Soft, Non-Tender, No Distention, No Mass (Female) Exam: Deferred Rectal (Female) Exam: Deferred Back Exam: Normal Inspection Extremities: Normal Range of Motion, No Pedal Edema, Normal Capillary Refill, Other (R BKA) Neurological: Alert, Oriented, CN II-XII Intact, Normal Cognition, No Motor/Sensory Deficits Psychiatric: Normal Affect, Tearful Skin Exam: Warm, Dry, Intact, Normal Color, No Rash Lymphatic: No Adenopathy EKG INTERPRETATION Rhythm: NSR [place]: Normal P-Wave: Present QRS: Normal ST-T: Normal QT: Normal Course - Vital Signs Last Recorded V/S: Last Vital Signs Temp 36.7 C 05/26/20 22:32 Pulse 120 H 05/26/20 22:32 Resp 20 05/26/20 22:32 BP 154/94 H 05/26/20 22:32 Pulse Ox 98 05/26/20 22:32 - Orders/Labs/Meds Orders: Active Orders 24 hr Category Date Time Status Patient Status [ADT] Routine ADT 05/27/20 00:40 Ordered EKG Documentation Completion [RC] STAT Care 05/26/20 23:09 Active CULTURE BLOOD [BC] Stat Lab 05/26/20 23:29 Received CULTURE BLOOD [BC] Stat Lab 05/26/20 23:40 Received UA RFX JONATHAN AND CULT IF INDIC [URIN] Stat Lab 05/26/20 23:05 Ordered Sodium Chloride 0.9% [Saline Flush] Med 05/26/20 23:04 Active 10 ml FLUSH ASDIRECTED PRN Blood Culture x2 Reflex Set [OM.PC] Stat Oth 05/26/20 23:09 Ordered Peripheral IV Insertion Adult [OM.PC] Routine Oth 05/26/20 23:04 Ordered Medication Orders Sodium Chloride (Saline Flush) 10 ml FLUSH ASDIRECTED PRN PRN Reason: Keep Vein Open Labs: Laboratory Tests 05/26/20 05/26/20 05/26/20 Range/Units 23:29 23:29 23:29 WBC 11.0 H (4.0-10.0) x10^3/uL RBC 5.02 (4.00-5.50) x10^6/uL Hgb 14.7 (12.0-16.0) g/dL Hct 41.5 (33.0-47.0) % MCV 82.7 (78.0-93.0) fL MCH 29.3 (26.0-32.0) pg MCHC 35.4 (32.0-36.0) g/dL RDW Coeff of Roderick 13.7 (10.0-15.0) % Plt Count 340 (130-400) x10^3/uL Neut % (Auto) 87.0 H (50.0-80.0) % Lymph % (Auto) 10.0 L (25.0-50.0) % [place] % (Auto) 2.6 (2.0-11.0) % Eos % (Auto) 0.1 (0.0-4.0) % Baso % (Auto) 0.3 (0.2-1.2) % PT 10.6 (9.5-12.3) SEC INR 1.0 L (2.0-3.5) ABG pH (7.35-7.45) ABG pCO2 (35-45) mmHG ABG pO2 (80-105) mmHG ABG HCO3 (22-26) mmol/L ABG O2 Content (95-98) % ABG Base Excess (-2-3) mmol/L FiO2 Sodium 129 L* (136-145) mmol/L Potassium 3.9 (3.5-5.1) mmol/L Chloride 89 L (98-107) mmol/L Carbon Dioxide 14 L (21-32) mmol/L Anion Gap 29.9 H (10-20) mmol/L BUN 28 H (7-18) mg/dL Creatinine 1.3 H (0.55-1.02) mg/dL Est Cr Clr Drug Dosing 61.92 mL/min Estimated GFR (MDRD) 46 Glucose 562 H* (74-106) mg/dL Calcium 9.4 (8.5-10.1) mg/dL Corrected Calcium 9.16 (8.5-10.1) mg/dL Magnesium 2.0 (1.8-2.4) mg/dL Total Bilirubin 1.1 H (0.2-1.0) mg/dL AST 23 (15-37) U/L ALT 45 (14-59) U/L Alkaline Phosphatase 167 H (46-116) U/L Troponin I < 0.017 (<=0.056) ng/mL C-Reactive Protein 2.1 H (<=0.9) mg/dL Total Protein 8.3 H (6.4-8.2) g/dL Albumin 4.3 (3.4-5.0) g/dL Globulin 4.0 Albumin/Globulin Ratio 1.08 Amylase 6 L (25-115) U/L Lipase 22 L (73-393) U/L Urine Color (YELLOW) Urine Appearance (CLEAR) Urine pH (5.0-8.0) Ur Specific [place] Urine Protein (NEGATIVE) mg/dL Urine Glucose (UA) (NEGATIVE) mg/dL Urine Ketones (NEGATIVE) mg/dL Urine Occult Blood (NEGATIVE) Urine Nitrite (NEGATIVE) Urine Bilirubin (NEGATIVE) Urine Urobilinogen (0.2) EU/dL Ur Leukocyte Esterase (NEGATIVE) 05/27/20 05/27/20 Range/Units 00:15 00:35 WBC (4.0-10.0) x10^3/uL RBC (4.00-5.50) x10^6/uL Hgb (12.0-16.0) g/dL Hct (33.0-47.0) % MCV (78.0-93.0) fL MCH (26.0-32.0) pg MCHC (32.0-36.0) g/dL RDW Coeff of Roderick (10.0-15.0) % Plt Count (130-400) x10^3/uL Neut % (Auto) (50.0-80.0) % Lymph % (Auto) (25.0-50.0) % [place] % (Auto) (2.0-11.0) % Eos % (Auto) (0.0-4.0) % Baso % (Auto) (0.2-1.2) % PT (9.5-12.3) SEC INR (2.0-3.5) ABG pH 7.37 (7.35-7.45) ABG pCO2 27 L (35-45) mmHG ABG pO2 85 (80-105) mmHG ABG HCO3 15 L (22-26) mmol/L ABG O2 Content 96 (95-98) % ABG Base Excess -10 L (-2-3) mmol/L FiO2 0.21 Sodium (136-145) mmol/L Potassium (3.5-5.1) mmol/L Chloride (98-107) mmol/L Carbon Dioxide (21-32) mmol/L Anion Gap (10-20) mmol/L BUN (7-18) mg/dL Creatinine (0.55-1.02) mg/dL Est Cr Clr Drug Dosing mL/min Estimated GFR (MDRD) Glucose (74-106) mg/dL Calcium (8.5-10.1) mg/dL Corrected Calcium (8.5-10.1) mg/dL Magnesium (1.8-2.4) mg/dL Total Bilirubin (0.2-1.0) mg/dL AST (15-37) U/L ALT (14-59) U/L Alkaline Phosphatase (46-116) U/L Troponin I (<=0.056) ng/mL C-Reactive Protein (<=0.9) mg/dL Total Protein (6.4-8.2) g/dL Albumin (3.4-5.0) g/dL Globulin Albumin/Globulin Ratio Amylase (25-115) U/L Lipase (73-393) U/L Urine Color Yellow (YELLOW) Urine Appearance Cloudy H (CLEAR) Urine pH 5.0 (5.0-8.0) Ur Specific [place] 1.020 Urine Protein Negative (NEGATIVE) mg/dL Urine Glucose (UA) 500 H (NEGATIVE) mg/dL Urine Ketones 80 H (NEGATIVE) mg/dL Urine Occult Blood Negative (NEGATIVE) Urine Nitrite Negative (NEGATIVE) Urine Bilirubin Negative (NEGATIVE) Urine Urobilinogen 0.2 (0.2) EU/dL Ur Leukocyte Esterase Trace H (NEGATIVE) Meds: Medications Generic Name Dose Route Start Last Admin Trade Name Frececy PRN Reason Stop Dose Admin Sodium Chloride 10 ml 05/26/20 23:04 Saline Flush FLUSH ASDIRECTED PRN Keep Vein Open Discontinued Medications Generic Name Dose Route Start Last Admin Trade Name Jana PRN Reason Stop Dose Admin Sodium Chloride 1,000 mls @ 1,000 mls/hr 05/26/20 23:09 05/26/20 23:30 Normal Saline IV 05/27/20 00:08 1,000 mls/hr .BOLUS ONE Administration Promethazine HCl 12.5 mg/ 100.5 mls @ 400 mls/hr 05/26/20 23:09 05/26/20 23:35 Sodium Chloride IV 05/26/20 23:24 400 mls/hr ONETIME ONE Administration Insulin Human Regular 10 unit 05/27/20 00:19 Humulin R IVPUSH 05/27/20 00:20 ONETIME ONE Promethazine HCl Confirm 05/26/20 23:20 05/26/20 23:43 Phenergan Administered 05/26/20 23:21 Not Given Dose 25 mg .ROUTE .STK-MED ONE - Re-Assessments/Exams Free Text/Narrative Re-Assessment/Exam: Pt. was given a liter of NS in ER and then started on second liter at 500ml/hr. She was given phenergan 12.5mg IV for nausea and vomiting. She was given regular insulin 10u IV. She was given rocephin 1 gm IV for UTI. Departure - Departure Time of Disposition: 00:45 Disposition: Admitted As Inpatient 68 Clinical Impression: Hyperglycemia due to type 1 diabetes mellitus, UTI, Urinary tract infectious disease, Dehydration - Discharge Information Referrals: Uriah Kaye PA-C [Primary Care Provider] - Forms: ED Department Discharge Sepsis Event Note (ED) - Evaluation Sepsis Screening Result: No Definite Risk - Focused Exam Vital Signs: Vital Signs Temp Pulse Resp BP Pulse Ox 05/26/20 22:32 36.7 C 120 H 20 154/94 H 98 - Problem List Review Problem List Initiated/Reviewed/Updated: Yes - My Orders Last 24 Hours: My Active Orders 05/26/20 23:04 Sodium Chloride 0.9% [Saline Flush] 10 ml FLUSH ASDIRECTED PRN Peripheral IV Insertion Adult [OM.PC] Routine 05/26/20 23:05 UA RFX JONATHAN AND CULT IF INDIC [URIN] Stat 05/26/20 23:09 EKG Documentation Completion [RC] STAT Blood Culture x2 Reflex Set [OM.PC] Stat 05/26/20 23:29 CULTURE BLOOD [BC] Stat 05/26/20 23:40 CULTURE BLOOD [BC] Stat 05/27/20 00:40 Patient Status [ADT] Routine - Assessment/Plan Last 24 Hours: My Active Orders 05/26/20 23:04 Sodium Chloride 0.9% [Saline Flush] 10 ml FLUSH ASDIRECTED PRN Peripheral IV Insertion Adult [OM.PC] Routine 05/26/20 23:05 UA RFX JONATHAN AND CULT IF INDIC [URIN] Stat 05/26/20 23:09 EKG Documentation Completion [RC] STAT Blood Culture x2 Reflex Set [OM.PC] Stat 05/26/20 23:29 CULTURE BLOOD [BC] Stat 05/26/20 23:40 CULTURE BLOOD [BC] Stat 05/27/20 00:40 Patient Status [ADT] Routine Plan: Pt. will be admitted acutely. Dr. Lora will see the patient in the AM. Pt. is a code 1. Will continue IV fluids at 500ml/hr for next liter, then 125ml hr. Continue IV phenergan for nausea/vomiting. Accuchecks every 2 hours. CBC, CMP in AM. Will start sliding scale insulin once blood glucose is under 250mg/dl. Pt. is a code 1.
[2020-05-27 00:14] LABS: CHLORIDE,CL 89 mmol/L (98-107)
[2020-05-27 00:19] LABS: ANION GAP 29.9 mmol/L (10-20); SODIUM,NA 129 mmol/L (136-145)
[2020-05-27] MEDS ORDERED: Insulin Regular, Human 100 Units/ML 3 ML Vial IVPUSH ONE (00:19)
[2020-05-27 00:27] LABS: BASE EXCESS ARTERIAL -10 mmol/L (-2-3); BICARBONATE,ARTERIAL 15 mmol/L (22-26); PCO2 ARTERIAL 27 mmHG (35-45); PO2 ARTERIAL 85 mmHG (80-105)
[2020-05-27] MEDS ORDERED: Sodium Chloride 0.9% 1,000 ML IV ONE (00:40)
[2020-05-27] MEDS ORDERED: Sodium Chloride 0.9% 500 ML IV ONE (00:40)
[2020-05-27] MEDS ORDERED: cefTRIAXone 1 GM Vial IVPUSH ONE (00:42)
[2020-05-27] MEDS ORDERED: Promethazine 25 MG Tab PO PRN (01:29)
[2020-05-27] MEDS ORDERED: NS + KCl 20mEq/L 1,000 ML IV SCH (01:30)
[2020-05-27] MEDS ORDERED: Enoxaparin 40 MG/0.4 ML Syringe SUBCUT SCH (01:45)
[2020-05-27 02:05] VITALS: BP 124/78; PULSE 125
[2020-05-27] MEDS ORDERED: ClonazePAM 0.5 MG Tab PO PRN (03:05)
--- NOTE | 2020-05-27 06:01 | PCM.SN.2 ---
- Free Text/Narrative Note: I was called for an acute admit after midnight for DKA. Had 2 liters of saline and insulin and blood sugars and heart rate were coming down. I discussed orders with the ER and plan was to do admit in the morning. Patient left AMA around 4 am because her visitor could not come even though hospital staff was going to bring her her "stuff" from him. Patient is well known to me from previous admit for DKA where she also left AMA. She was getting outpatient Bactrim for UTI and was given IV rocephin here. She had no fevers but heart rates initially around 130s per nursing. A bag that had white powder in it was found near her stuff. Urine available for UDS but restricted ordering currently. I will discuss with lab in the AM. No H and P dictated due to patient leaving before being seen.
[2020-05-27] MEDS ORDERED: Omeprazole 20 MG Cap.CR PO SCH (07:00)
[2020-05-27] MEDS ORDERED: NALOXONE SL SCH (08:00)
[2020-05-27] MEDS ORDERED: Gabapentin 400 MG Cap PO SCH (08:00)
[2020-05-27] MEDS ORDERED: PARoxetine 20 MG Tab PO SCH (08:00)
[2020-05-27] MEDS ORDERED: Insulin Lispro 100 Units/ML 3 ML Vial SUBCUT SCH (08:00)
[2020-05-27] MEDS ORDERED: BUPRENORPHINE SL SCH (08:00)
[2020-05-27] MEDS ORDERED: Acetaminophen 500 MG Tab PO SCH (08:00)
[2020-05-27] MEDS ORDERED: [UNRECOGNIZED DRUG - OTHER] SL SCH (08:00)
[2020-05-27] MEDS ORDERED: amLODIPine 5 MG Tab PO SCH (08:00)
[2020-05-27] MEDS ORDERED: rOPINIRole 0.5 MG Tab PO SCH (08:00)
[2020-05-27 08:06] LABS: BARBITURATE SCREEN,URINE NEGATIVE (NEGATIVE); BENZODIAZEPINES SCREEN,URINE NEGATIVE (NEGATIVE); EDDP,URINE SCREEN NEGATIVE (NEGATIVE); METHAMPHETAMINE SCREEN, URINE NEGATIVE (NEGATIVE); TCA SCREEN,URINE NEGATIVE (NEGATIVE); THC SCREEN,URINE 50 NG/ML NEGATIVE (NEGATIVE)
--- NOTE | 2020-05-27 09:27 | PCM.DCSUM1 ---
Discharge Summary - Hospital Course Free Text/Narrative:: Contacted by nursing staff, stating that pt. was wanting to sign out AMA. They stated that a gentleman presented to the hospital at the request of the patient with a bag for her. She wanted this individual to bring the back up to her, but this was not allowed, as it was approx. 0300 AM and due to the covid 19 visitor restrictions. Pt. became extremely upset. She subsequently signed out AMA and walked out of the hospital. - Discharge Data Discharge Date: 05/27/20 Discharge Disposition: Against Medical Advice 07 Condition: Stable - Referral to Home Health Primary Care Physician: Uriah Kaye PA-C - Discharge Plan Home Medications: Home Meds atorvaSTATin [Lipitor] 10 mg PO BEDTIME 07/09/17 [History] Omeprazole 20 mg PO DAILY 02/12/18 [History] Acetaminophen [Tylenol Extra Strength] 1,000 mg PO TID 04/25/18 [History] Insulin Glarg,Human.Rec.Analog [Lantus] 30 units SUBCUT BEDTIME 09/18/18 [History] Insulin Lispro [Humalog] 4 unit SUBCUT TIDMEALS 09/18/18 [History] PARoxetine [Paxil] 60 mg PO DAILY 02/04/19 [History] Sennosides/Docusate Sodium [Senna-Docusate Sodium Tablet] 2 tab PO BID 02/04/19 [History] glucagon HCL [Glucagon HCl] 1 mg IM ASDIRECTED PRN 02/04/19 [History] amLODIPine [Norvasc] 10 mg PO DAILY 08/17/19 [History] Lidocaine 2% [Xylocaine 2% Jelly] 1 dose TP DAILY PRN 12/24/19 [History] Mirtazapine [Remeron] 15 mg PO BEDTIME 12/24/19 [History] traZODone HCl [Trazodone HCl] 100 - 300 mg PO BEDTIME 12/24/19 [History] Dextrose [Glucose] 16 gm PO ASDIRECTED PRN 04/05/20 [History] Promethazine [Phenergan] 12.5 mg PO QID PRN 04/05/20 [History] clonazePAM [Clonazepam] 1 - 2 tab PO BID 04/05/20 [History] rOPINIRole [Requip] 0.5 mg PO TID 04/05/20 [History] risperiDONE 2 mg PO BEDTIME 04/05/20 [History] Buprenorphine/Naloxone [Buprenorphine-Naloxone 8 MG-2 MG] 1 tab SL TID 05/27/20 [History] Diphenhyd/Lidocaine/Nystatin [Magic Mouthwash] 30 ml SSPIT TID PRN 05/27/20 [History] Gabapentin [Neurontin] 800 mg PO TID 05/27/20 [History] Sulfamethoxazole/Trimethoprim [Bactrim Ds Tablet] 1 tab PO BID 05/27/20 [History] valACYclovir [Valtrex] 1,000 mg PO TID 05/27/20 [History] Forms: ED Department Discharge Referrals: Uriah Kyae PA-C [Primary Care Provider] - - Discharge Summary/Plan Comment DC Time >30 min.: Yes Discharge Summary/Plan Comment: Signed AMA form. Advised to return to ER if she wishes, certainly if she has c ontinued nausea and vomiting, or other worrisome signs/symptoms. - General Info Date of Service: 05/27/20 Subjective Update: Unable to assess, as patient left AMA. Functional Status: Reports: Pain Controlled - Review of Systems General: Reports: No Symptoms - Patient Data Vitals - Most Recent: Last Vital Signs Temp 36.9 C 05/27/20 02:00 Pulse 125 H 05/27/20 02:00 Resp 16 05/27/20 02:00 BP 124/78 05/27/20 02:00 Pulse Ox 100 05/27/20 02:00 Weight - Most Recent: 90.718 kg I&O - Last 24 hours: Intake & Output 05/26/20 05/27/20 05/27/20 22:59 06:59 14:59 Intake Total 1300 Balance 1300 Lab Results - Last 24 hrs: Laboratory Results - last 24 hr 05/26/20 05/26/20 05/26/20 Range/Units 23:29 23:29 23:29 WBC 11.0 H (4.0-10.0) x10^3/uL RBC 5.02 (4.00-5.50) x10^6/uL Hgb 14.7 (12.0-16.0) g/dL Hct 41.5 (33.0-47.0) % MCV 82.7 (78.0-93.0) fL MCH 29.3 (26.0-32.0) pg MCHC 35.4 (32.0-36.0) g/dL RDW Coeff of Roderick 13.7 (10.0-15.0) % Plt Count 340 (130-400) x10^3/uL Neut % (Auto) 87.0 H (50.0-80.0) % Lymph % (Auto) 10.0 L (25.0-50.0) % Blount % (Auto) 2.6 (2.0-11.0) % Eos % (Auto) 0.1 (0.0-4.0) % Baso % (Auto) 0.3 (0.2-1.2) % PT 10.6 (9.5-12.3) SEC INR 1.0 L (2.0-3.5) ABG pH (7.35-7.45) ABG pCO2 (35-45) mmHG ABG pO2 (80-105) mmHG ABG HCO3 (22-26) mmol/L ABG O2 Content (95-98) % ABG Base Excess (-2-3) mmol/L FiO2 Sodium 129 L* (136-145) mmol/L Potassium 3.9 (3.5-5.1) mmol/L Chloride 89 L (98-107) mmol/L Carbon Dioxide 14 L (21-32) mmol/L Anion Gap 29.9 H (10-20) mmol/L BUN 28 H (7-18) mg/dL Creatinine 1.3 H (0.55-1.02) mg/dL Est Cr Clr Drug Dosing 61.92 mL/min Estimated GFR (MDRD) 46 Glucose 562 H* (74-106) mg/dL POC Glucose (74-106) mg/dL Calcium 9.4 (8.5-10.1) mg/dL Corrected Calcium 9.16 (8.5-10.1) mg/dL Magnesium 2.0 (1.8-2.4) mg/dL Total Bilirubin 1.1 H (0.2-1.0) mg/dL AST 23 (15-37) U/L ALT 45 (14-59) U/L Alkaline Phosphatase 167 H (46-116) U/L Troponin I < 0.017 (<=0.056) ng/mL C-Reactive Protein 2.1 H (<=0.9) mg/dL Total Protein 8.3 H (6.4-8.2) g/dL Albumin 4.3 (3.4-5.0) g/dL Globulin 4.0 Albumin/Globulin Ratio 1.08 Amylase 6 L (25-115) U/L Lipase 22 L (73-393) U/L Urine Color (YELLOW) Urine Appearance (CLEAR) Urine pH (5.0-8.0) Ur Specific [place] Urine Protein (NEGATIVE) mg/dL Urine Glucose (UA) (NEGATIVE) mg/dL Urine Ketones (NEGATIVE) mg/dL Urine Occult Blood (NEGATIVE) Urine Nitrite (NEGATIVE) Urine Bilirubin (NEGATIVE) Urine Urobilinogen (0.2) EU/dL Ur Leukocyte Esterase (NEGATIVE) Urine RBC (NOT SEEN) /HPF Urine WBC (NOT SEEN) /HPF Ur Squamous Epith Cells (NEGATIVE) /HPF Amorphous Sediment Urine Bacteria (NEGATIVE) /HPF Granular Casts (Auto) Urine Mucus (NEGATIVE) /LPF Urine Opiates Screen (NEGATIVE) Ur Buprenorphine Scrn (NEGATIVE) Ur Oxycodone Screen (NEGATIVE) Ur EDDP (Meth Metab) (NEGATIVE) Urine Methadone Screen (NEGATIVE) Ur Barbiturates Screen (NEGATIVE) Ur Tricyclics Screen (NEGATIVE) Ur Phencyclidine Scrn (NEGATIVE) Ur Amphetamine Screen (NEGATIVE) U Methamphetamines Scrn (NEGATIVE) Urine MDMA Screen (NEGATIVE) U Benzodiazepines Scrn (NEGATIVE) U Cocaine Metab Screen (NEGATIVE) U Marijuana (THC) Screen (NEGATIVE) 05/27/20 05/27/20 05/27/20 Range/Units 00:15 00:35 00:35 WBC (4.0-10.0) x10^3/uL RBC (4.00-5.50) x10^6/uL Hgb (12.0-16.0) g/dL Hct (33.0-47.0) % MCV (78.0-93.0) fL MCH (26.0-32.0) pg MCHC (32.0-36.0) g/dL RDW Coeff of Roderick (10.0-15.0) % Plt Count (130-400) x10^3/uL Neut % (Auto) (50.0-80.0) % Lymph % (Auto) (25.0-50.0) % Blount % (Auto) (2.0-11.0) % Eos % (Auto) (0.0-4.0) % Baso % (Auto) (0.2-1.2) % PT (9.5-12.3) SEC INR (2.0-3.5) ABG pH 7.37 (7.35-7.45) ABG pCO2 27 L (35-45) mmHG ABG pO2 85 (80-105) mmHG ABG HCO3 15 L (22-26) mmol/L ABG O2 Content 96 (95-98) % ABG Base Excess -10 L (-2-3) mmol/L FiO2 0.21 Sodium (136-145) mmol/L Potassium (3.5-5.1) mmol/L Chloride (98-107) mmol/L Carbon Dioxide (21-32) mmol/L Anion Gap (10-20) mmol/L BUN (7-18) mg/dL Creatinine (0.55-1.02) mg/dL Est Cr Clr Drug Dosing mL/min Estimated GFR (MDRD) Glucose (74-106) mg/dL POC Glucose (74-106) mg/dL Calcium (8.5-10.1) mg/dL Corrected Calcium (8.5-10.1) mg/dL Magnesium (1.8-2.4) mg/dL Total Bilirubin (0.2-1.0) mg/dL AST (15-37) U/L ALT (14-59) U/L Alkaline Phosphatase (46-116) U/L Troponin I (<=0.056) ng/mL C-Reactive Protein (<=0.9) mg/dL Total Protein (6.4-8.2) g/dL Albumin (3.4-5.0) g/dL Globulin Albumin/Globulin Ratio Amylase (25-115) U/L Lipase (73-393) U/L Urine Color Yellow (YELLOW) Urine Appearance Cloudy H (CLEAR) Urine pH 5.0 (5.0-8.0) Ur Specific [place] 1.020 Urine Protein Negative (NEGATIVE) mg/dL Urine Glucose (UA) 500 H (NEGATIVE) mg/dL Urine Ketones 80 H (NEGATIVE) mg/dL Urine Occult Blood Negative (NEGATIVE) Urine Nitrite Negative (NEGATIVE) Urine Bilirubin Negative (NEGATIVE) Urine Urobilinogen 0.2 (0.2) EU/dL Ur Leukocyte Esterase Trace H (NEGATIVE) Urine RBC 0-5 (NOT SEEN) /HPF Urine WBC 5-10 H (NOT SEEN) /HPF Ur Squamous Epith Cells Moderate H (NEGATIVE) /HPF Amorphous Sediment Few Urine Bacteria Few H (NEGATIVE) /HPF Granular Casts (Auto) Few Urine Mucus Few H (NEGATIVE) /LPF Urine Opiates Screen Negative (NEGATIVE) Ur Buprenorphine Scrn Negative (NEGATIVE) Ur Oxycodone Screen Negative (NEGATIVE) Ur EDDP (Meth Metab) Negative (NEGATIVE) Urine Methadone Screen Negative (NEGATIVE) Ur Barbiturates Screen Negative (NEGATIVE) Ur Tricyclics Screen Negative (NEGATIVE) Ur Phencyclidine Scrn Negative (NEGATIVE) Ur Amphetamine Screen Positive H (NEGATIVE) U Methamphetamines Scrn Negative (NEGATIVE) Urine MDMA Screen Negative (NEGATIVE) U Benzodiazepines Scrn Negative (NEGATIVE) U Cocaine Metab Screen Negative (NEGATIVE) U Marijuana (THC) Screen Negative (NEGATIVE) 05/27/20 Range/Units 02:56 WBC (4.0-10.0) x10^3/uL RBC (4.00-5.50) x10^6/uL Hgb (12.0-16.0) g/dL Hct (33.0-47.0) % MCV (78.0-93.0) fL MCH (26.0-32.0) pg MCHC (32.0-36.0) g/dL RDW Coeff of Roderick (10.0-15.0) % Plt Count (130-400) x10^3/uL Neut % (Auto) (50.0-80.0) % Lymph % (Auto) (25.0-50.0) % Blount % (Auto) (2.0-11.0) % Eos % (Auto) (0.0-4.0) % Baso % (Auto) (0.2-1.2) % PT (9.5-12.3) SEC INR (2.0-3.5) ABG pH (7.35-7.45) ABG pCO2 (35-45) mmHG ABG pO2 (80-105) mmHG ABG HCO3 (22-26) mmol/L ABG O2 Content (95-98) % ABG Base Excess (-2-3) mmol/L FiO2 Sodium (136-145) mmol/L Potassium (3.5-5.1) mmol/L Chloride (98-107) mmol/L Carbon Dioxide (21-32) mmol/L Anion Gap (10-20) mmol/L BUN (7-18) mg/dL Creatinine (0.55-1.02) mg/dL Est Cr Clr Drug Dosing mL/min Estimated GFR (MDRD) Glucose (74-106) mg/dL POC Glucose 267 H (74-106) mg/dL Calcium (8.5-10.1) mg/dL Corrected Calcium (8.5-10.1) mg/dL Magnesium (1.8-2.4) mg/dL Total Bilirubin (0.2-1.0) mg/dL AST (15-37) U/L ALT (14-59) U/L Alkaline Phosphatase (46-116) U/L Troponin I (<=0.056) ng/mL C-Reactive Protein (<=0.9) mg/dL Total Protein (6.4-8.2) g/dL Albumin (3.4-5.0) g/dL Globulin Albumin/Globulin Ratio Amylase (25-115) U/L Lipase (73-393) U/L Urine Color (YELLOW) Urine Appearance (CLEAR) Urine pH (5.0-8.0) Ur Specific [place] Urine Protein (NEGATIVE) mg/dL Urine Glucose (UA) (NEGATIVE) mg/dL Urine Ketones (NEGATIVE) mg/dL Urine Occult Blood (NEGATIVE) Urine Nitrite (NEGATIVE) Urine Bilirubin (NEGATIVE) Urine Urobilinogen (0.2) EU/dL Ur Leukocyte Esterase (NEGATIVE) Urine RBC (NOT SEEN) /HPF Urine WBC (NOT SEEN) /HPF Ur Squamous Epith Cells (NEGATIVE) /HPF Amorphous Sediment Urine Bacteria (NEGATIVE) /HPF Granular Casts (Auto) Urine Mucus (NEGATIVE) /LPF Urine Opiates Screen (NEGATIVE) Ur Buprenorphine Scrn (NEGATIVE) Ur Oxycodone Screen (NEGATIVE) Ur EDDP (Meth Metab) (NEGATIVE) Urine Methadone Screen (NEGATIVE) Ur Barbiturates Screen (NEGATIVE) Ur Tricyclics Screen (NEGATIVE) Ur Phencyclidine Scrn (NEGATIVE) Ur Amphetamine Screen (NEGATIVE) U Methamphetamines Scrn (NEGATIVE) Urine MDMA Screen (NEGATIVE) U Benzodiazepines Scrn (NEGATIVE) U Cocaine Metab Screen (NEGATIVE) U Marijuana (THC) Screen (NEGATIVE) Med Orders - Current: Current Medications Discontinued Medications Acetaminophen (Tylenol Extra Strength) 1,000 mg PO TID [facility] Amlodipine Besylate (Norvasc) 10 mg PO DAILY [facility] Atorvastatin Calcium (Lipitor) 10 mg PO BEDTIME [facility] Ceftriaxone Sodium (Rocephin) 1 gm IVPUSH STAT ONE Stop: 05/27/20 00:43 Last Admin: 05/27/20 01:02 Dose: 1 gm Documented by: Clonazepam (Klonopin) 0.5 mg PO BID PRN PRN Reason: Anxiety Enoxaparin Sodium (Lovenox) 40 mg SUBCUT DAILY [facility] Last Admin: 05/27/20 03:24 Dose: 40 mg Documented by: Gabapentin (Neurontin) 800 mg PO TID [facility] Sodium Chloride (Normal Saline) 1,000 mls @ 1,000 mls/hr IV .BOLUS ONE Stop: 05/27/20 00:08 Last Admin: 05/26/20 23:30 Dose: 1,000 mls/hr Documented by: Promethazine HCl 12.5 mg/ (Sodium Chloride) 100.5 mls @ 400 mls/hr IV ONETIME ONE Stop: 05/26/20 23:24 Last Admin: 05/26/20 23:35 Dose: 400 mls/hr Documented by: Sodium Chloride (Normal Saline) 1,000 mls @ 500 mls/hr IV ONETIME ONE Stop: 05/27/20 02:39 Last Admin: 05/27/20 00:40 Dose: 500 mls/hr Documented by: Potassium Chloride/Sodium Chloride (Normal Saline With 20 Meq Kcl) 1,000 mls @ 125 mls/hr IV ASDIRECTED [facility] Insulin Glargine (Lantus) 30 unit SUBCUT BEDTIME [facility] Insulin Human Lispro (Humalog) 0 unit SUBCUT TIDMEALS [facility] Insulin Human Regular (Humulin R) 10 unit IVPUSH ONETIME ONE Stop: 05/27/20 00:20 Last Admin: 05/27/20 00:45 Dose: 10 units Documented by: Mirtazapine (Remeron) 15 mg PO BEDTIME [facility] Non-Formulary Medication (Buprenorphine/Naloxone [Buprenorphine-Naloxone 8 Mg-2 Mg]) 1 tab SL TID [facility] Non-Formulary Medication (Trazodone Hcl) 100 mg PO BEDTIME [facility] Omeprazole (Omeprazole) 20 mg PO ACBREAKFAST [facility] Paroxetine HCl (Paxil) 60 mg PO DAILY [facility] Promethazine HCl (Phenergan) Confirm Administered Dose 25 mg .ROUTE .STK-MED ONE Stop: 05/26/20 23:21 Last Admin: 05/26/20 23:43 Dose: Not Given Documented by: Promethazine HCl (Phenergan) 12.5 mg PO Q4H PRN PRN Reason: Nausea/Vomiting Last Admin: 05/27/20 03:32 Dose: 12.5 mg Documented by: Risperidone (Risperidal) 2 mg PO BEDTIME [facility] Ropinirole HCl (Requip) 0.5 mg PO TID [facility] Senna/Docusate Sodium (Senna Plus) 2 tab PO BID [facility] Sodium Chloride (Saline Flush) 10 ml FLUSH ASDIRECTED PRN PRN Reason: Keep Vein Open Comments:: Pt. left AMA
[2020-05-27] MEDS ORDERED: Insulin Glarg,Human.Rec.Analog 100 Unit/ML SUBCUT SCH (20:00)
[2020-05-27] MEDS ORDERED: Mirtazapine 15 MG Tab PO SCH (20:00)
[2020-05-27] MEDS ORDERED: atorvaSTATin 10 MG Tab PO SCH (20:00)
[2020-05-27] MEDS ORDERED: Non-Formulary Medication 1 Each (Trazodone Hcl 100 MG) PO SCH (20:00)
[2020-05-27] MEDS ORDERED: risperiDONE 1 MG Tab PO SCH (20:00)
== END 2020-05-27 04:00 | disposition left against medical advice (07) | DRG 638 ==
LOC: VM.ED 22:32 → VM.MS 05-27 00:40
PROVIDERS: ADMIT Internal Medicine; ATTEND Internal Medicine
DX: E10.10 Type 1 diabetes mellitus with ketoacidosis without coma (principal); E86.0 Dehydration; E10.65 Type 1 diabetes mellitus with hyperglycemia; E10.40 Type 1 diabetes mellitus with diabetic neuropathy, unspecified; N39.0 Urinary tract infection, site not specified; H54.7 Unspecified visual loss; Z86.718 Personal history of other venous thrombosis and embolism; K58.9 Irritable bowel syndrome, unspecified; I10 Essential (primary) hypertension; K21.9 Gastro-esophageal reflux disease without esophagitis; R32 Unspecified urinary incontinence; E10.42 Type 1 diabetes mellitus with diabetic polyneuropathy; F43.10 Post-traumatic stress disorder, unspecified; F41.9 Anxiety disorder, unspecified; F31.9 Bipolar disorder, unspecified; Z96.649 Presence of unspecified artificial hip joint; Z79.899 Other long term (current) drug therapy; Z98.890 Other specified postprocedural states; Z88.8 Allergy status to other drugs, medicaments and biological substances; Z79.4 Long term (current) use of insulin; Z87.11 Personal history of peptic ulcer disease; Z89.511 Acquired absence of right leg below knee; Z87.440 Personal history of urinary (tract) infections; Z90.49 Acquired absence of other specified parts of digestive tract
CPT/HCPCS: 36415; 80053; 80305; 81001; 82150; 82803; 83690; 83735; 84484; 85025; 85610; 86140; 87040 ×2; 87086; 93005; 96361; 96374; 99285; J2550; J7030; J7050; 36600; 82962; 93010; 99222; A9270-GY; J0696; J1650; J1815-GY

== ENCOUNTER 2020-05-27 08:03 | Observation (INO) | payer MEDICAID ==
[2020-05-27] MEDS ORDERED: Promethazine 12.5 MG in Sodium Chloride 0.9% 100 ML IV ONE (08:45)
[2020-05-27] MEDS ORDERED: Sodium Chloride 0.9% 1,000 ML IV ONE (08:46)
[2020-05-27] MEDS: Sodium Chloride 0.9% 10 ML Syringe FLUSH PRN ×4 (08:57→22:26)
[2020-05-27 09:33] LABS: BUPRENORPHINE,URINE NEGATIVE (NEGATIVE); MARIJUANA,URINE NEGATIVE (NEGATIVE); METHYLENEDIOXYMETHAMP,UR NEGATIVE (NEGATIVE); PHENCYCLIDINE,URINE NEGATIVE (NEGATIVE)
[2020-05-27 09:35] LABS: ANION GAP 31.9 mmol/L (10-20); CHLORIDE,CL 94 mmol/L (98-107); SODIUM,NA 131 mmol/L (136-145)
[2020-05-27] MEDS ORDERED: Insulin Regular, Human 100 Units/ML 3 ML Vial IVPUSH ONE ×2 (09:43→16:36)
--- NOTE | 2020-05-27 10:10 | EDM.PDOC ---
ED HPI GENERAL MEDICAL PROBLEM - General Chief Complaint: Diabetic Complaint Stated Complaint: Elevated Blood Sugar Time Seen by Provider: 05/27/20 08:30 Source of Information: Reports: Patient History Limitations: Reports: No Limitations - History of Present Illness INITIAL COMMENTS - FREE TEXT/NARRATIVE: Pt. presents to ER with complaints of nausea and vomiting. Pt. signed out AMA early this AM. She states that she did not like nursing staff and stated that she was being called names. Pt. was also upset that they would not let her have a visitor at 0300 AM due to the late hour/covid visitor restrictions. Pt. was feeling much better after IV fluids and IV phenergan. She started vomiting again after getting home. Denies any chest pain. No shortness of breath. Denies any fever or chills. Pt. states that her blood glucose has been in the 400-460 range this AM. Onset Date: 05/23/20 Location: Reports: Abdomen, Generalized Associated Symptoms: Reports: Nausea/Vomiting - Related Data Allergies Allergy/AdvReac Type Severity Reaction Status Date / Time ibuprofen AdvReac Stomach Verified 05/26/20 23:09 Upset Home Meds: Home Meds atorvaSTATin [Lipitor] 10 mg PO BEDTIME 07/09/17 [History] Omeprazole 20 mg PO DAILY 02/12/18 [History] Acetaminophen [Tylenol Extra Strength] 1,000 mg PO TID 04/25/18 [History] Insulin Glarg,Human.Rec.Analog [Lantus] 30 units SUBCUT BEDTIME 09/18/18 [History] Insulin Lispro [Humalog] 4 unit SUBCUT TIDMEALS 09/18/18 [History] PARoxetine [Paxil] 60 mg PO DAILY 02/04/19 [History] Sennosides/Docusate Sodium [Senna-Docusate Sodium Tablet] 2 tab PO BID 02/04/19 [History] glucagon HCL [Glucagon HCl] 1 mg IM ASDIRECTED PRN 02/04/19 [History] amLODIPine [Norvasc] 10 mg PO DAILY 08/17/19 [History] Lidocaine 2% [Xylocaine 2% Jelly] 1 dose TP DAILY PRN 12/24/19 [History] Mirtazapine [Remeron] 15 mg PO BEDTIME 12/24/19 [History] traZODone HCl [Trazodone HCl] 100 - 300 mg PO BEDTIME 12/24/19 [History] Dextrose [Glucose] 16 gm PO ASDIRECTED PRN 04/05/20 [History] Promethazine [Phenergan] 12.5 mg PO QID PRN 04/05/20 [History] clonazePAM [Clonazepam] 1 - 2 tab PO BID 04/05/20 [History] rOPINIRole [Requip] 0.5 mg PO TID 04/05/20 [History] risperiDONE 2 mg PO BEDTIME 04/05/20 [History] Buprenorphine/Naloxone [Buprenorphine-Naloxone 8 MG-2 MG] 1 tab SL TID 05/27/20 [History] Diphenhyd/Lidocaine/Nystatin [Magic Mouthwash] 30 ml SSPIT TID PRN 05/27/20 [History] Gabapentin [Neurontin] 800 mg PO TID 05/27/20 [History] Sulfamethoxazole/Trimethoprim [Bactrim Ds Tablet] 1 tab PO BID 05/27/20 [History] valACYclovir [Valtrex] 1,000 mg PO TID 05/27/20 [History] Past Medical History HEENT History: Reports: Impaired Vision Cardiovascular History: Reports: Blood Clots/VTE/DVT, Hypertension, Other (See Below) Other Cardiovascular History: blood clot R leg Respiratory History: Reports: Other (See Below) Other Respiratory History: hx of acute respiratory failure Gastrointestinal History: Reports: Irritable Bowel Syndrome, PUD Other Gastrointestinal History: acid reflux Genitourinary History: Reports: Urinary Incontinence, Other (See Below) Other Genitourinary History: hx of UTI, hx of acute kidney injury [employer] History: Reports: Musculoskeletal History: Reports: Other (See Below) Other Musculoskeletal History: right foot drop Neurological History: Reports: Neuropathy, Diabetic Psychiatric History: Reports: Anxiety, Bipolar, PTSD, Other (See Below) Other Psychiatric History: chronic narcotic use Endocrine/Metabolic History: Reports: Diabetes, Type I, Other (See Below) Other Endocrine/Metabolic History: 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, hx of ketoacidosis Hematologic History: Reports: Other (See Below) - Past Surgical History GI Surgical History: Reports: Cholecystectomy, Other (See Below) Other GI Surgeries/Procedures: Esophagus/ stomach repair Musculoskeletal Surgical History: Reports: Hip Replacement, Other (See Below) Other Musculoskeletal Surgeries/Procedures:: hx of carpal tunnel repair Social & Family History - Family History Family Medical History: Noncontributory Other Psychiatric Family History: 2 brothers with substance abuse problems[ Endocrine/Metabolic: Reports: Diabetes, type II - Caffeine Use Caffeine Use: Reports: Coffee - Living Situation & Occupation Living situation: Reports: Occupation: Employed (has 2 children which she shares with jerry, mother has been living with her while she convalesces from DKA and mentla health issues. lizeth at [facility]) ED ROS GENERAL - Review of Systems Review Of Systems: See Below Constitutional: Reports: Weakness, Fatigue HEENT: Reports: No Symptoms Respiratory: Reports: No Symptoms Cardiovascular: Reports: No Symptoms Endocrine: Reports: No Symptoms GI/Abdominal: Reports: Nausea, Vomiting : Reports: No Symptoms Musculoskeletal: Reports: No Symptoms Skin: Reports: No Symptoms Neurological: Reports: No Symptoms Psychiatric: Reports: No Symptoms Hematologic/Lymphatic: Reports: No Symptoms Immunologic: Reports: No Symptoms ED EXAM GENERAL NO PERIP PULSE - Physical Exam Exam: See Below Exam Limited By: No Limitations General Appearance: Alert, WD/WN, No Apparent Distress Neck: Normal Inspection, Supple, Non-Tender, Full Range of Motion Respiratory/Chest: No Respiratory Distress, Lungs Clear, Normal Breath Sounds, No Accessory Muscle Use, Chest Non-Tender Cardiovascular: Normal Peripheral Pulses, Regular Rate, Rhythm, No Edema, No Gallop, No JVD, No Murmur, No Rub GI/Abdominal: Normal Bowel Sounds, Soft, Non-Tender, No Organomegaly, No Distention, No Mass (Female) Exam: Deferred Rectal (Female) Exam: Deferred Back Exam: Normal Inspection, Full Range of Motion Extremities: Normal Inspection, Normal Range of Motion, Non-Tender, No Pedal Edema, Normal Capillary Refill Neurological: Alert, Oriented, CN II-XII Intact, Normal Cognition, Normal Gait, Normal Reflexes, No Motor/Sensory Deficits Psychiatric: Normal Affect, Anxious Skin Exam: Warm, Dry, Intact, Normal Color, No Rash Lymphatic: No Adenopathy Course - Orders/Labs/Meds Orders: Active Orders 24 hr Category Date Time Status Patient Status [ADT] Routine ADT 05/27/20 09:48 Active Sodium Chloride 0.9% [Saline Flush] Med 05/27/20 08:43 Active 10 ml FLUSH ASDIRECTED PRN Peripheral IV Insertion Adult [OM.PC] Routine Oth 05/27/20 08:44 Ordered Medication Orders Sodium Chloride (Saline Flush) 10 ml FLUSH ASDIRECTED PRN PRN Reason: Keep Vein Open Last Admin: 05/27/20 08:57 Dose: 10 ml Documented by: BRIELLE Labs: Laboratory Tests 05/27/20 05/27/20 05/27/20 Range/Units 08:11 09:01 09:01 WBC 12.0 H (4.0-10.0) x10^3/uL RBC 4.88 (4.00-5.50) x10^6/uL Hgb 14.2 (12.0-16.0) g/dL Hct 39.9 (33.0-47.0) % MCV 81.8 (78.0-93.0) fL MCH 29.1 (26.0-32.0) pg MCHC 35.6 (32.0-36.0) g/dL RDW Coeff of Roderick 13.8 (10.0-15.0) % Plt Count 321 (130-400) x10^3/uL Neut % (Auto) 88.1 H (50.0-80.0) % Lymph % (Auto) 8.9 L (25.0-50.0) % Davie % (Auto) 2.8 (2.0-11.0) % Eos % (Auto) 0.0 (0.0-4.0) % Baso % (Auto) 0.2 (0.2-1.2) % Sodium 131 L (136-145) mmol/L Potassium 3.9 (3.5-5.1) mmol/L Chloride 94 L (98-107) mmol/L Carbon Dioxide 9 L (21-32) mmol/L Anion Gap 31.9 H (10-20) mmol/L BUN 20 H (7-18) mg/dL Creatinine 1.0 (0.55-1.02) mg/dL Est Cr Clr Drug Dosing TNP Estimated GFR (MDRD) > 60 Glucose 409 H* (74-106) mg/dL POC Glucose 452 H* (74-106) mg/dL Calcium 8.7 (8.5-10.1) mg/dL Corrected Calcium 8.78 (8.5-10.1) mg/dL Total Bilirubin 0.8 (0.2-1.0) mg/dL AST 19 (15-37) U/L ALT 37 (14-59) U/L Alkaline Phosphatase 147 H (46-116) U/L Total Protein 7.5 (6.4-8.2) g/dL Albumin 3.9 (3.4-5.0) g/dL Globulin 3.6 Albumin/Globulin Ratio 1.08 Urine Opiates Screen (NEGATIVE) Ur Buprenorphine Scrn (NEGATIVE) Ur Oxycodone Screen (NEGATIVE) Ur EDDP (Meth Metab) (NEGATIVE) Urine Methadone Screen (NEGATIVE) Ur Barbituates Screen (NEGATIVE) Ur Tricyclics Screen (NEGATIVE) Ur Phencyclidine Scrn (NEGATIVE) Ur Amphetamines Screen (NEGATIVE) U Methamphetamines Scrn (NEGATIVE) Urine MDMA Screen (NEGATIVE) U Benzodiazepines Scrn (NEGATIVE) Urine Cocaine Screen (NEGATIVE) U Marijuana (THC) Screen (NEGATIVE) 05/27/20 Range/Units 09:14 WBC (4.0-10.0) x10^3/uL RBC (4.00-5.50) x10^6/uL Hgb (12.0-16.0) g/dL Hct (33.0-47.0) % MCV (78.0-93.0) fL MCH (26.0-32.0) pg MCHC (32.0-36.0) g/dL RDW Coeff of Roderick (10.0-15.0) % Plt Count (130-400) x10^3/uL Neut % (Auto) (50.0-80.0) % Lymph % (Auto) (25.0-50.0) % Davie % (Auto) (2.0-11.0) % Eos % (Auto) (0.0-4.0) % Baso % (Auto) (0.2-1.2) % Sodium (136-145) mmol/L Potassium (3.5-5.1) mmol/L Chloride (98-107) mmol/L Carbon Dioxide (21-32) mmol/L Anion Gap (10-20) mmol/L BUN (7-18) mg/dL Creatinine (0.55-1.02) mg/dL Est Cr Clr Drug Dosing Estimated GFR (MDRD) Glucose (74-106) mg/dL POC Glucose (74-106) mg/dL Calcium (8.5-10.1) mg/dL Corrected Calcium (8.5-10.1) mg/dL Total Bilirubin (0.2-1.0) mg/dL AST (15-37) U/L ALT (14-59) U/L Alkaline Phosphatase (46-116) U/L Total Protein (6.4-8.2) g/dL Albumin (3.4-5.0) g/dL Globulin Albumin/Globulin Ratio Urine Opiates Screen Negative (NEGATIVE) Ur Buprenorphine Scrn Negative (NEGATIVE) Ur Oxycodone Screen Negative (NEGATIVE) Ur EDDP (Meth Metab) Negative (NEGATIVE) Urine Methadone Screen Negative (NEGATIVE) Ur Barbituates Screen Negative (NEGATIVE) Ur Tricyclics Screen Negative (NEGATIVE) Ur Phencyclidine Scrn Negative (NEGATIVE) Ur Amphetamines Screen Positive H (NEGATIVE) U Methamphetamines Scrn Positive H (NEGATIVE) Urine MDMA Screen Negative (NEGATIVE) U Benzodiazepines Scrn Negative (NEGATIVE) Urine Cocaine Screen Negative (NEGATIVE) U Marijuana (THC) Screen Negative (NEGATIVE) Meds: Medications Generic Name Dose Route Start Last Admin Trade Name Freq PRN Reason Stop Dose Admin Sodium Chloride 10 ml 05/27/20 08:43 05/27/20 08:57 Saline Flush FLUSH 10 ml ASDIRECTED PRN Administration Keep Vein Open Discontinued Medications Generic Name Dose Route Start Last Admin Trade Name Freq PRN Reason Stop Dose Admin Promethazine HCl 12.5 mg/ 100.5 mls @ 400 mls/hr 05/27/20 08:45 05/27/20 08:57 Sodium Chloride IV 05/27/20 09:00 400 mls/hr ONETIME ONE Administration Sodium Chloride 1,000 mls @ 1,000 mls/hr 05/27/20 08:46 05/27/20 08:57 Normal Saline IV 05/27/20 09:45 1,000 mls/hr .BOLUS ONE Administration Insulin Human Regular 10 unit 05/27/20 09:43 05/27/20 09:54 Humulin R IVPUSH 05/27/20 09:44 10 units ONETIME ONE Administration - Re-Assessments/Exams Free Text/Narrative Re-Assessment/Exam: Pt. given a liter or NS in ER and phenergan 12.5mg IV. Departure - Departure Time of Disposition: 10:13 Disposition: Home, Self-Care 01 Clinical Impression: Hyperglycemia, Dehydration - Discharge Information Referrals: PCP,Unknown [Ordering Only Provider] - - Problem List Review Problem List Initiated/Reviewed/Updated: Yes - My Orders Last 24 Hours: My Active Orders 05/27/20 08:43 Sodium Chloride 0.9% [Saline Flush] 10 ml FLUSH ASDIRECTED PRN 05/27/20 08:44 Peripheral IV Insertion Adult [OM.PC] Routine 05/27/20 09:48 Patient Status [ADT] Routine - Assessment/Plan Last 24 Hours: My Active Orders 05/27/20 08:43 Sodium Chloride 0.9% [Saline Flush] 10 ml FLUSH ASDIRECTED PRN 05/27/20 08:44 Peripheral IV Insertion Adult [OM.PC] Routine 05/27/20 09:48 Patient Status [ADT] Routine Plan: Pt. was readmitted observation. She will be kept NPO today. Continue with IV phenergan and IV fluids. Pt. was given regular insulin 10u IV. Recheck bedside glucose every 2 hours. Repeat CMP this evening. Pt. is a code 1.
[2020-05-27] MEDS ORDERED: Promethazine 6.25 MG/5 ML Liquid 10 ML UD Cup PO PRN (11:48)
[2020-05-27] MEDS: NS + KCl 20mEq/L 1,000 ML IV SCH ×2 (12:26→20:29)
[2020-05-27] MEDS ORDERED: Promethazine 12.5 MG in Sodium Chloride 0.9% 100 ML IV PRN (16:18)
[2020-05-27] MEDS: Insulin Lispro 100 Units/ML 3 ML Vial SUBCUT SCH (17:47)
[2020-05-27] MEDS ORDERED: atorvaSTATin 10 MG Tab PO SCH (20:00)
[2020-05-27] MEDS ORDERED: traZODone 50 MG Tab PO SCH (20:00)
[2020-05-27] MEDS ORDERED: risperiDONE 1 MG Tab PO SCH (20:00)
[2020-05-27] MEDS ORDERED: Insulin Glarg,Human.Rec.Analog 100 Unit/ML SUBCUT SCH (20:00)
[2020-05-27] MEDS ORDERED: Mirtazapine 15 MG Tab PO SCH (20:00)
[2020-05-27] MEDS: Acetaminophen 500 MG Tab PO SCH (20:18)
[2020-05-27] MEDS: ClonazePAM 0.5 MG Tab PO SCH (20:19)
[2020-05-27] MEDS: Gabapentin 400 MG Cap PO SCH (20:19)
[2020-05-27] MEDS: rOPINIRole 0.5 MG Tab PO SCH (20:20)
[2020-05-27] MEDS: cefTRIAXone 1 GM Vial IVPUSH SCH (22:18)
[2020-05-28] MEDS: NS + KCl 20mEq/L 1,000 ML IV SCH (03:55)
[2020-05-28] MEDS: Omeprazole 20 MG Cap.CR PO SCH ×2 (05:51→07:01)
[2020-05-28 05:54] VITALS: BP 101/61; PULSE 63
[2020-05-28 07:35] LABS: ANION GAP 16.9 mmol/L (10-20); CHLORIDE,CL 109 mmol/L (98-107); SODIUM,NA 141 mmol/L (136-145)
[2020-05-28] MEDS ORDERED: Enoxaparin 40 MG/0.4 ML Syringe SUBCUT SCH (08:00)
[2020-05-28] MEDS ORDERED: PARoxetine 20 MG Tab PO SCH (08:00)
[2020-05-28] MEDS ORDERED: amLODIPine 5 MG Tab PO SCH (08:00)
--- NOTE | 2020-05-28 08:52 | EDM.PDOC ---
ED HPI GENERAL MEDICAL PROBLEM - General Chief Complaint: Diabetic Complaint Stated Complaint: Elevated Blood Sugar Time Seen by Provider: 05/27/20 08:30 Source of Information: Reports: Patient History Limitations: Reports: No Limitations - History of Present Illness INITIAL COMMENTS - FREE TEXT/NARRATIVE: Pt. presents to ER with complaints of nausea and vomiting. Pt. signed out AMA early this AM. She states that she did not like nursing staff and stated that she was being called names. Pt. was also upset that they would not let her have a visitor at 0300 AM due to the late hour/cov visitor restrictions. Pt. was feeling much better after IV fluids and IV phenergan. She started vomiting again after getting home. Denies any chest pain. No shortness of breath. Denies any fever or chills. Pt. states that her blood glucose has been in the 400-460 range this AM. 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 - Related Data Allergies Allergy/AdvReac Type Severity Reaction Status Date / Time ibuprofen AdvReac Stomach Verified 05/26/20 23:09 Upset Home Meds: Home Meds atorvaSTATin [Lipitor] 10 mg PO BEDTIME 07/09/17 [History] Omeprazole 20 mg PO DAILY 02/12/18 [History] Acetaminophen [Tylenol Extra Strength] 1,000 mg PO TID 04/25/18 [History] Insulin Glarg,Human.Rec.Analog [Lantus] 30 units SUBCUT BEDTIME 09/18/18 [History] Insulin Lispro [Humalog] 4 unit SUBCUT TIDMEALS 09/18/18 [History] PARoxetine [Paxil] 60 mg PO DAILY 02/04/19 [History] Sennosides/Docusate Sodium [Senna-Docusate Sodium Tablet] 2 tab PO BID 02/04/19 [History] glucagon HCL [Glucagon HCl] 1 mg IM ASDIRECTED PRN 02/04/19 [History] amLODIPine [Norvasc] 10 mg PO DAILY 08/17/19 [History] Lidocaine 2% [Xylocaine 2% Jelly] 1 dose TP DAILY PRN 12/24/19 [History] Mirtazapine [Remeron] 15 mg PO BEDTIME 12/24/19 [History] traZODone HCl [Trazodone HCl] 100 - 300 mg PO BEDTIME 12/24/19 [History] Dextrose [Glucose] 16 gm PO ASDIRECTED PRN 04/05/20 [History] Promethazine [Phenergan] 12.5 mg PO QID PRN 04/05/20 [History] clonazePAM [Clonazepam] 1 - 2 tab PO BID 04/05/20 [History] rOPINIRole [Requip] 0.5 mg PO TID 04/05/20 [History] risperiDONE 2 mg PO BEDTIME 04/05/20 [History] Buprenorphine/Naloxone [Buprenorphine-Naloxone 8 MG-2 MG] 1 tab SL TID 05/27/20 [History] Diclofenac Sodium [Voltaren 1% Gel] 2 gm TOP BID 05/27/20 [History] Diphenhyd/Lidocaine/Nystatin [Magic Mouthwash] 30 ml SSPIT TID PRN 05/27/20 [History] Gabapentin [Neurontin] 800 mg PO TID 05/27/20 [History] Sucralfate [Carafate] 1 gm PO QID PRN 05/27/20 [History] Sulfamethoxazole/Trimethoprim [Bactrim Ds Tablet] 1 tab PO BID 05/27/20 [History] polyethylene glycoL 3350 [MiraLAX] 1 packet PO DAILY 05/27/20 [History] valACYclovir [Valtrex] 1,000 mg PO TID 05/27/20 [History] Past Medical History HEENT History: Reports: Impaired Vision Cardiovascular History: Reports: Blood Clots/VTE/DVT, Hypertension, Other (See Below) Other Cardiovascular History: blood clot R leg Respiratory History: Reports: Other (See Below) Other Respiratory History: hx of acute respiratory failure Gastrointestinal History: Reports: Irritable Bowel Syndrome, PUD Other Gastrointestinal History: acid reflux Genitourinary History: Reports: Urinary Incontinence, Other (See Below) Other Genitourinary History: hx of UTI, hx of acute kidney injury 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: Musculoskeletal History: Reports: Other (See Below) Other Musculoskeletal History: right foot drop Neurological History: Reports: Neuropathy, Diabetic Psychiatric History: Reports: Anxiety, Bipolar, PTSD, Other (See Below) Other Psychiatric History: chronic narcotic use Endocrine/Metabolic History: Reports: Diabetes, Type I, Other (See Below) Other Endocrine/Metabolic History: 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, hx of ketoacidosis Hematologic History: Reports: Other (See Below) - Infectious Disease History Infectious Disease History: Reports: MRSA - Past Surgical History GI Surgical History: Reports: Cholecystectomy, Other (See Below) Other GI Surgeries/Procedures: Esophagus/ stomach repair Musculoskeletal Surgical History: Reports: Hip Replacement, Other (See Below) Other Musculoskeletal Surgeries/Procedures:: hx of carpal tunnel repair Social & Family History - Family History Family Medical History: Noncontributory Other Psychiatric Family History: 2 brothers with substance abuse problems[ Endocrine/Metabolic: Reports: Diabetes, type II - Tobacco Use Smoking Status *Q: Current Status Unknown - Caffeine Use Caffeine Use: Reports: Coffee Caffeine Use Comment: patient is lethargic to answer questions - Recreational Drug Use Recreational Drug Use: Yes Drug Use in Last 12 Months: Yes Recreational Drug Type: Reports: Amphetamines (Speed), Methamphetamine - Living Situation & Occupation Living situation: Reports: Occupation: Employed (has 2 children which she shares with jerry, mother has been living with her while she convalesces from DKA and mentla health issues. hetal wofl at [facility]) ED ROS GENERAL - Review of Systems Review Of Systems: See Below Constitutional: Reports: No Symptoms HEENT: Reports: No Symptoms Respiratory: Reports: No Symptoms Cardiovascular: Reports: No Symptoms Endocrine: Reports: No Symptoms GI/Abdominal: Reports: Abdominal Pain, Nausea, Vomiting : Reports: No Symptoms Musculoskeletal: Reports: No Symptoms Skin: Reports: No Symptoms Neurological: Reports: No Symptoms Psychiatric: Reports: No Symptoms Hematologic/Lymphatic: Reports: No Symptoms Immunologic: Reports: No Symptoms ED EXAM, GENERAL - Physical Exam Exam: See Below Free Text/Narrative:: Pt. presents to ER with complaints of nausea and vomiting. Pt. signed out AMA early this AM. She states that she did not like nursing staff and stated that she was being called names. Pt. was also upset that they would not let her have a visitor at 0300 AM due to the late hour/covid 19 visitor restrictions. Pt. was feeling much better after IV fluids and IV phenergan. She started vomiting again after getting home. Denies any chest pain. No shortness of breath. Denies any fever or chills. Pt. states that her blood glucose has been in the 400-460 range this AM. Exam Limited By: No Limitations General Appearance: Alert, WD/WN, No Apparent Distress Neck: Normal Inspection, Supple, Non-Tender, Full Range of Motion Respiratory/Chest: No Respiratory Distress, Lungs Clear, Normal Breath Sounds, No Accessory Muscle Use, Chest Non-Tender Cardiovascular: Normal Peripheral Pulses, Regular Rate, Rhythm, No Edema, No Gallop, No JVD, No Murmur, No Rub GI/Abdominal: Normal Bowel Sounds, Soft, Non-Tender, No Organomegaly, No Distention, No Mass Back Exam: Normal Inspection, Full Range of Motion Extremities: Normal Inspection, Normal Range of Motion, Non-Tender, No Pedal Edema, Normal Capillary Refill Neurological: Alert, Oriented, CN II-XII Intact, Normal Cognition, Normal Gait, Normal Reflexes, No Motor/Sensory Deficits Psychiatric: Normal Affect, Anxious Lymphatic: No Adenopathy Course - Vital Signs Last Recorded V/S: Last Vital Signs Temp 36.9 C 05/28/20 05:53 Pulse 63 05/28/20 05:53 Resp 16 05/28/20 05:53 BP 101/61 05/28/20 05:53 Pulse Ox 96 05/28/20 05:53 - Orders/Labs/Meds Orders: Active Orders 24 hr Category Date Time Status Patient Status [ADT] Routine ADT 05/27/20 09:48 Active Sodium Chloride 0.9% [Saline Flush] Med 05/27/20 08:43 Active 10 ml FLUSH ASDIRECTED PRN Peripheral IV Insertion Adult [OM.PC] Routine Oth 05/27/20 08:44 Ordered Medication Orders Acetaminophen (Tylenol Extra Strength) 1,000 mg PO TID [facility] Last Admin: 05/27/20 20:18 Dose: 1,000 mg Documented by: OLVIN Amlodipine Besylate (Norvasc) 10 mg PO DAILY [facility] Atorvastatin Calcium (Lipitor) 10 mg PO BEDTIME [facility] Last Admin: 05/27/20 20:20 Dose: 10 mg Documented by: OLVIN Ceftriaxone Sodium (Rocephin) 1 gm IVPUSH DAILY [facility] Last Admin: 05/27/20 22:18 Dose: 1 gm Documented by: OLVIN Clonazepam (Klonopin) 0.5 - 1 mg PO BID [facility] Last Admin: 05/27/20 20:19 Dose: 1 mg Documented by: OLVIN Enoxaparin Sodium (Lovenox) 40 mg SUBCUT DAILY [facility]IANA Gabapentin (Neurontin) 800 mg PO TID [facility] Last Admin: 05/27/20 20:19 Dose: 800 mg Documented by: OLVIN Potassium Chloride/Sodium Chloride (Normal Saline With 20 Meq Kcl) 1,000 mls @ 125 mls/hr IV ASDIRECTED [facility] Last Admin: 05/28/20 03:55 Dose: 125 mls/hr Documented by: Infusion: 05/28/20 03:55 Dose: 125 mls/hr Documented by: Admin: 05/27/20 20:29 Dose: 125 mls/hr Documented by: Infusion: 05/27/20 20:26 Dose: 125 mls/hr Documented by: Admin: 05/27/20 12:26 Dose: 125 mls/hr Documented by: CLAUDIA Promethazine HCl 12.5 mg/ (Sodium Chloride) 100.5 mls @ 400 mls/hr IV Q4H PRN PRN Reason: Nausea/Vomiting Last Admin: 05/27/20 16:42 Dose: 400 mls/hr Documented by: CLAUDIA Insulin Glargine (Lantus) 30 unit SUBCUT BEDTIME [facility] Last Admin: 05/27/20 20:16 Dose: 30 units Documented by: OLVIN Insulin Human Lispro (Humalog) 4 unit SUBCUT TIDMEALS [facility] Last Admin: 05/27/20 17:47 Dose: 7 units Documented by: CLAUDIA Mirtazapine (Remeron) 15 mg PO BEDTIME [facility] Last Admin: 05/27/20 20:18 Dose: 15 mg Documented by: OLVIN Non-Formulary Medication (Buprenorphine/Naloxone [Buprenorphine-Naloxone 8 Mg-2 Mg]) 1 tab SL TID [facility] Omeprazole (Omeprazole) 20 mg PO DAILY@0700 [facility] Last Admin: 05/28/20 07:01 Dose: Not Given Documented by: Admin: 05/28/20 05:51 Dose: 20 mg Documented by: OLVIN Paroxetine HCl (Paxil) 60 mg PO DAILY [facility] Risperidone (Risperidal) 2 mg PO BEDTIME [facility] Last Admin: 05/27/20 20:19 Dose: 2 mg Documented by: OLVIN Ropinirole HCl (Requip) 0.5 mg PO TID [facility] Last Admin: 05/27/20 20:20 Dose: 0.5 mg Documented by: OLVIN Senna/Docusate Sodium (Senna Plus) 2 tab PO BID [facility] Last Admin: 05/27/20 20:20 Dose: 2 tab Documented by: OLVIN Sodium Chloride (Saline Flush) 10 ml FLUSH ASDIRECTED PRN PRN Reason: Keep Vein Open Last Admin: 05/27/20 22:26 Dose: 10 ml Documented by: Admin: 05/27/20 22:18 Dose: 10 ml Documented by: Admin: 05/27/20 12:26 Dose: 10 ml Documented by: Admin: 05/27/20 08:57 Dose: 10 ml Documented by: BRIELLE Trazodone HCl (Trazodone) 100 mg PO BEDTIME [facility] Last Admin: 05/27/20 20:20 Dose: 100 mg Documented by: OLVIN Labs: Laboratory Tests 05/27/20 05/27/20 05/27/20 Range/Units 08:11 09:01 09:01 WBC 12.0 H (4.0-10.0) x10^3/uL RBC 4.88 (4.00-5.50) x10^6/uL Hgb 14.2 (12.0-16.0) g/dL Hct 39.9 (33.0-47.0) % MCV 81.8 (78.0-93.0) fL MCH 29.1 (26.0-32.0) pg MCHC 35.6 (32.0-36.0) g/dL RDW Coeff of Roderick 13.8 (10.0-15.0) % Plt Count 321 (130-400) x10^3/uL Neut % (Auto) 88.1 H (50.0-80.0) % Lymph % (Auto) 8.9 L (25.0-50.0) % Jay % (Auto) 2.8 (2.0-11.0) % Eos % (Auto) 0.0 (0.0-4.0) % Baso % (Auto) 0.2 (0.2-1.2) % Sodium 131 L (136-145) mmol/L Potassium 3.9 (3.5-5.1) mmol/L Chloride 94 L (98-107) mmol/L Carbon Dioxide 9 L (21-32) mmol/L Anion Gap 31.9 H (10-20) mmol/L BUN 20 H (7-18) mg/dL Creatinine 1.0 (0.55-1.02) mg/dL Est Cr Clr Drug Dosing TNP Estimated GFR (MDRD) > 60 Glucose 409 H* (74-106) mg/dL POC Glucose 452 H* (74-106) mg/dL Calcium 8.7 (8.5-10.1) mg/dL Corrected Calcium 8.78 (8.5-10.1) mg/dL Total Bilirubin 0.8 (0.2-1.0) mg/dL AST 19 (15-37) U/L ALT 37 (14-59) U/L Alkaline Phosphatase 147 H (46-116) U/L Total Protein 7.5 (6.4-8.2) g/dL Albumin 3.9 (3.4-5.0) g/dL Globulin 3.6 Albumin/Globulin Ratio 1.08 Urine Opiates Screen (NEGATIVE) Ur Buprenorphine Scrn (NEGATIVE) Ur Oxycodone Screen (NEGATIVE) Ur EDDP (Meth Metab) (NEGATIVE) Urine Methadone Screen (NEGATIVE) Ur Barbituates Screen (NEGATIVE) Ur Tricyclics Screen (NEGATIVE) Ur Phencyclidine Scrn (NEGATIVE) Ur Amphetamines Screen (NEGATIVE) U Methamphetamines Scrn (NEGATIVE) Urine MDMA Screen (NEGATIVE) U Benzodiazepines Scrn (NEGATIVE) Urine Cocaine Screen (NEGATIVE) U Marijuana (THC) Screen (NEGATIVE) 05/27/20 Range/Units 09:14 WBC (4.0-10.0) x10^3/uL RBC (4.00-5.50) x10^6/uL Hgb (12.0-16.0) g/dL Hct (33.0-47.0) % MCV (78.0-93.0) fL MCH (26.0-32.0) pg MCHC (32.0-36.0) g/dL RDW Coeff of Roderick (10.0-15.0) % Plt Count (130-400) x10^3/uL Neut % (Auto) (50.0-80.0) % Lymph % (Auto) (25.0-50.0) % Jay % (Auto) (2.0-11.0) % Eos % (Auto) (0.0-4.0) % Baso % (Auto) (0.2-1.2) % Sodium (136-145) mmol/L Potassium (3.5-5.1) mmol/L Chloride (98-107) mmol/L Carbon Dioxide (21-32) mmol/L Anion Gap (10-20) mmol/L BUN (7-18) mg/dL Creatinine (0.55-1.02) mg/dL Est Cr Clr Drug Dosing Estimated GFR (MDRD) Glucose (74-106) mg/dL POC Glucose (74-106) mg/dL Calcium (8.5-10.1) mg/dL Corrected Calcium (8.5-10.1) mg/dL Total Bilirubin (0.2-1.0) mg/dL AST (15-37) U/L ALT (14-59) U/L Alkaline Phosphatase (46-116) U/L Total Protein (6.4-8.2) g/dL Albumin (3.4-5.0) g/dL Globulin Albumin/Globulin Ratio Urine Opiates Screen Negative (NEGATIVE) Ur Buprenorphine Scrn Negative (NEGATIVE) Ur Oxycodone Screen Negative (NEGATIVE) Ur EDDP (Meth Metab) Negative (NEGATIVE) Urine Methadone Screen Negative (NEGATIVE) Ur Barbituates Screen Negative (NEGATIVE) Ur Tricyclics Screen Negative (NEGATIVE) Ur Phencyclidine Scrn Negative (NEGATIVE) Ur Amphetamines Screen Positive H (NEGATIVE) U Methamphetamines Scrn Positive H (NEGATIVE) Urine MDMA Screen Negative (NEGATIVE) U Benzodiazepines Scrn Negative (NEGATIVE) Urine Cocaine Screen Negative (NEGATIVE) U Marijuana (THC) Screen Negative (NEGATIVE) Meds: Medications Generic Name Dose Route Start Last Admin Trade Name Freq PRN Reason Stop Dose Admin Acetaminophen 1,000 mg 05/27/20 20:00 05/27/20 20:18 Tylenol Extra Strength PO 1,000 mg TID VIVIANA Administration Amlodipine Besylate 10 mg 05/28/20 08:00 Norvasc PO DAILY VIVIANA Atorvastatin Calcium 10 mg 05/27/20 20:00 05/27/20 20:20 Lipitor PO 10 mg BEDTIME VIVIANA Administration Ceftriaxone Sodium 1 gm 05/27/20 22:00 05/27/20 22:18 Rocephin IVPUSH 1 gm DAILY [facility]IVIANA Administration Clonazepam 0.5 - 1 mg 05/27/20 20:00 05/27/20 20:19 Klonopin PO 1 mg BID VIVIANA Administration Enoxaparin Sodium 40 mg 05/28/20 08:00 Lovenox SUBCUT DAILY VIVIANA Gabapentin 800 mg 05/27/20 20:00 05/27/20 20:19 Neurontin PO 800 mg TID VIVIANA Administration Potassium Chloride/Sodium Chloride 1,000 mls @ 125 mls/hr 05/27/20 12:00 05/28/20 03:55 Normal Saline With 20 Meq Kcl IV 125 mls/hr ASDIRECTED VIVIANA Administration Promethazine HCl 12.5 mg/ 100.5 mls @ 400 mls/hr 05/27/20 16:18 05/27/20 16:42 Sodium Chloride IV 400 mls/hr Q4H PRN Administration Nausea/Vomiting Insulin Glargine 30 unit 05/27/20 20:00 05/27/20 20:16 Lantus SUBCUT 30 units BEDTIME VIVIANA Administration Insulin Human Lispro 4 unit 05/27/20 18:00 05/27/20 17:47 Humalog SUBCUT 7 units TIDMEALS VIVIANA Administration Mirtazapine 15 mg 05/27/20 20:00 05/27/20 20:18 Remeron PO 15 mg BEDTIME VIVIANA Administration Non-Formulary Medication 1 tab 05/27/20 20:00 Buprenorphine/Naloxone [Buprenorphine-Naloxone 8 Mg-2 Mg] SL TID VIVIANA Omeprazole 20 mg 05/28/20 07:00 05/28/20 07:01 Omeprazole PO Not Given DAILY@0700 VIVIANA Paroxetine HCl 60 mg 05/28/20 08:00 Paxil PO DAILY VIVIANA Risperidone 2 mg 05/27/20 20:00 05/27/20 20:19 Risperidal PO 2 mg BEDTIME VIVIANA Administration Ropinirole HCl 0.5 mg 05/27/20 20:00 05/27/20 20:20 Requip PO 0.5 mg TID VIVIANA Administration Senna/Docusate Sodium 2 tab 05/27/20 20:00 05/27/20 20:20 Senna Plus PO 2 tab BID VIVIANA Administration Sodium Chloride 10 ml 05/27/20 08:43 05/27/20 22:26 Saline Flush FLUSH 10 ml ASDIRECTED PRN Administration Keep Vein Open Trazodone HCl 100 mg 05/27/20 20:00 05/27/20 20:20 Trazodone PO 100 mg BEDTIME VIVIANA Administration Discontinued Medications Generic Name Dose Route Start Last Admin Trade Name Jana PRN Reason Stop Dose Admin Promethazine HCl 12.5 mg/ 100.5 mls @ 400 mls/hr 05/27/20 08:45 05/27/20 08:57 Sodium Chloride IV 05/27/20 09:00 400 mls/hr ONETIME ONE Administration Sodium Chloride 1,000 mls @ 1,000 mls/hr 05/27/20 08:46 05/27/20 08:57 Normal Saline IV 05/27/20 09:45 1,000 mls/hr .BOLUS ONE Administration Insulin Human Regular 10 unit 05/27/20 09:43 05/27/20 09:54 Humulin R IVPUSH 05/27/20 09:44 10 units ONETIME ONE Administration Insulin Human Regular 4 unit 05/27/20 16:36 05/27/20 16:45 Humulin R IVPUSH 05/27/20 16:37 4 units ONETIME ONE Administration Promethazine HCl 12.5 mg 05/27/20 11:48 Phenergan PO Q4H PRN Nausea/Vomiting Departure - Departure Time of Disposition: 07:00 Disposition: Admitted As Inpatient 68 Clinical Impression: Hyperglycemia, Dehydration - Discharge Information Sepsis Event Note (ED) - Evaluation Sepsis Screening Result: No Definite Risk - Problem List Review Problem List Initiated/Reviewed/Updated: Yes - My Orders Last 24 Hours: My Active Orders 05/27/20 08:43 Sodium Chloride 0.9% [Saline Flush] 10 ml FLUSH ASDIRECTED PRN 05/27/20 08:44 Peripheral IV Insertion Adult [OM.PC] Routine 05/27/20 09:48 Patient Status [ADT] Routine - Assessment/Plan Admission H&P: Please use this note as an admission H&P Last 24 Hours: My Active Orders 05/27/20 08:43 Sodium Chloride 0.9% [Saline Flush] 10 ml FLUSH ASDIRECTED PRN 05/27/20 08:44 Peripheral IV Insertion Adult [OM.PC] Routine 05/27/20 09:48 Patient Status [ADT] Routine Plan: Pt. admitted observation. She is code 1. Continue NPO status. Will slowly advance diet. IV NS with 20KCL at 125ml/hr. Continue rocephin for UTI. Lovenox for DVT prophylaxis. Will use the patient's usual insulin regimen and augment with regular insulin for elevated blood sugars. CMP and CBC tomorrow. Accu checks every 2 hours.
--- NOTE | 2020-05-28 08:58 | PCM.PN ---
- General Info Date of Service: 05/28/20 Admission Dx/Problem (Free Text): Pt. states that she is feeling much better today. She was started on clear liquids last night and has been tolerating them. Blood sugars have been improving. She has consistently been down in the 120-160 range for blood sugar. Pt. states that her abdominal discomfort has improved. Nausea has been well controlled with IV phenergan. Functional Status: Reports: Pain Controlled, Tolerating Diet - Review of Systems General: Reports: No Symptoms HEENT: Reports: No Symptoms Pulmonary: Reports: No Symptoms Cardiovascular: Reports: No Symptoms Gastrointestinal: Reports: No Symptoms Genitourinary: Reports: No Symptoms Musculoskeletal: Reports: No Symptoms Skin: Reports: No Symptoms Neurological: Reports: No Symptoms Psychiatric: Reports: No Symptoms - Patient Data Vitals - Most Recent: Last Vital Signs Temp 36.9 C 05/28/20 05:53 Pulse 63 05/28/20 05:53 Resp 16 05/28/20 05:53 BP 101/61 05/28/20 05:53 Pulse Ox 96 05/28/20 05:53 Weight - Most Recent: 131.542 kg I&O - Last 24 Hours: Intake & Output 05/27/20 05/28/20 05/28/20 22:59 06:59 14:59 Intake Total 800 1350 Balance 800 1350 Lab Results Last 24 Hours: Laboratory Results - last 24 hr 05/27/20 05/27/20 05/27/20 Range/Units 09:01 09:01 09:14 WBC 12.0 H (4.0-10.0) x10^3/uL RBC 4.88 (4.00-5.50) x10^6/uL Hgb 14.2 (12.0-16.0) g/dL Hct 39.9 (33.0-47.0) % MCV 81.8 (78.0-93.0) fL MCH 29.1 (26.0-32.0) pg MCHC 35.6 (32.0-36.0) g/dL RDW Coeff of Roderick 13.8 (10.0-15.0) % Plt Count 321 (130-400) x10^3/uL Neut % (Auto) 88.1 H (50.0-80.0) % Lymph % (Auto) 8.9 L (25.0-50.0) % Chase % (Auto) 2.8 (2.0-11.0) % Eos % (Auto) 0.0 (0.0-4.0) % Baso % (Auto) 0.2 (0.2-1.2) % Sodium 131 L (136-145) mmol/L Potassium 3.9 (3.5-5.1) mmol/L Chloride 94 L (98-107) mmol/L Carbon Dioxide 9 L (21-32) mmol/L Anion Gap 31.9 H (10-20) mmol/L BUN 20 H (7-18) mg/dL Creatinine 1.0 (0.55-1.02) mg/dL Est Cr Clr Drug Dosing TNP Estimated GFR (MDRD) > 60 Glucose 409 H* (74-106) mg/dL POC Glucose (74-106) mg/dL Calcium 8.7 (8.5-10.1) mg/dL Corrected Calcium 8.78 (8.5-10.1) mg/dL Total Bilirubin 0.8 (0.2-1.0) mg/dL AST 19 (15-37) U/L ALT 37 (14-59) U/L Alkaline Phosphatase 147 H (46-116) U/L Total Protein 7.5 (6.4-8.2) g/dL Albumin 3.9 (3.4-5.0) g/dL Globulin 3.6 Albumin/Globulin Ratio 1.08 Urine Opiates Screen Negative (NEGATIVE) Ur Buprenorphine Scrn Negative (NEGATIVE) Ur Oxycodone Screen Negative (NEGATIVE) Ur EDDP (Meth Metab) Negative (NEGATIVE) Urine Methadone Screen Negative (NEGATIVE) Ur Barbituates Screen Negative (NEGATIVE) Ur Tricyclics Screen Negative (NEGATIVE) Ur Phencyclidine Scrn Negative (NEGATIVE) Ur Amphetamines Screen Positive H (NEGATIVE) U Methamphetamines Scrn Positive H (NEGATIVE) Urine MDMA Screen Negative (NEGATIVE) U Benzodiazepines Scrn Negative (NEGATIVE) Urine Cocaine Screen Negative (NEGATIVE) U Marijuana (THC) Screen Negative (NEGATIVE) 05/27/20 05/27/20 05/27/20 Range/Units 10:30 11:44 14:05 WBC (4.0-10.0) x10^3/uL RBC (4.00-5.50) x10^6/uL Hgb (12.0-16.0) g/dL Hct (33.0-47.0) % MCV (78.0-93.0) fL MCH (26.0-32.0) pg MCHC (32.0-36.0) g/dL RDW Coeff of Roderick (10.0-15.0) % Plt Count (130-400) x10^3/uL Neut % (Auto) (50.0-80.0) % Lymph % (Auto) (25.0-50.0) % Chase % (Auto) (2.0-11.0) % Eos % (Auto) (0.0-4.0) % Baso % (Auto) (0.2-1.2) % Sodium (136-145) mmol/L Potassium (3.5-5.1) mmol/L Chloride (98-107) mmol/L Carbon Dioxide (21-32) mmol/L Anion Gap (10-20) mmol/L BUN (7-18) mg/dL Creatinine (0.55-1.02) mg/dL Est Cr Clr Drug Dosing Estimated GFR (MDRD) Glucose (74-106) mg/dL POC Glucose 273 H 221 H 239 H (74-106) mg/dL Calcium (8.5-10.1) mg/dL Corrected Calcium (8.5-10.1) mg/dL Total Bilirubin (0.2-1.0) mg/dL AST (15-37) U/L ALT (14-59) U/L Alkaline Phosphatase (46-116) U/L Total Protein (6.4-8.2) g/dL Albumin (3.4-5.0) g/dL Globulin Albumin/Globulin Ratio Urine Opiates Screen (NEGATIVE) Ur Buprenorphine Scrn (NEGATIVE) Ur Oxycodone Screen (NEGATIVE) Ur EDDP (Meth Metab) (NEGATIVE) Urine Methadone Screen (NEGATIVE) Ur Barbituates Screen (NEGATIVE) Ur Tricyclics Screen (NEGATIVE) Ur Phencyclidine Scrn (NEGATIVE) Ur Amphetamines Screen (NEGATIVE) U Methamphetamines Scrn (NEGATIVE) Urine MDMA Screen (NEGATIVE) U Benzodiazepines Scrn (NEGATIVE) Urine Cocaine Screen (NEGATIVE) U Marijuana (THC) Screen (NEGATIVE) 05/27/20 05/27/20 05/27/20 Range/Units 16:15 17:47 20:12 WBC (4.0-10.0) x10^3/uL RBC (4.00-5.50) x10^6/uL Hgb (12.0-16.0) g/dL Hct (33.0-47.0) % MCV (78.0-93.0) fL MCH (26.0-32.0) pg MCHC (32.0-36.0) g/dL RDW Coeff of Roderick (10.0-15.0) % Plt Count (130-400) x10^3/uL Neut % (Auto) (50.0-80.0) % Lymph % (Auto) (25.0-50.0) % Chase % (Auto) (2.0-11.0) % Eos % (Auto) (0.0-4.0) % Baso % (Auto) (0.2-1.2) % Sodium (136-145) mmol/L Potassium (3.5-5.1) mmol/L Chloride (98-107) mmol/L Carbon Dioxide (21-32) mmol/L Anion Gap (10-20) mmol/L BUN (7-18) mg/dL Creatinine (0.55-1.02) mg/dL Est Cr Clr Drug Dosing Estimated GFR (MDRD) Glucose (74-106) mg/dL POC Glucose 365 H 311 H 236 H (74-106) mg/dL Calcium (8.5-10.1) mg/dL Corrected Calcium (8.5-10.1) mg/dL Total Bilirubin (0.2-1.0) mg/dL AST (15-37) U/L ALT (14-59) U/L Alkaline Phosphatase (46-116) U/L Total Protein (6.4-8.2) g/dL Albumin (3.4-5.0) g/dL Globulin Albumin/Globulin Ratio Urine Opiates Screen (NEGATIVE) Ur Buprenorphine Scrn (NEGATIVE) Ur Oxycodone Screen (NEGATIVE) Ur EDDP (Meth Metab) (NEGATIVE) Urine Methadone Screen (NEGATIVE) Ur Barbituates Screen (NEGATIVE) Ur Tricyclics Screen (NEGATIVE) Ur Phencyclidine Scrn (NEGATIVE) Ur Amphetamines Screen (NEGATIVE) U Methamphetamines Scrn (NEGATIVE) Urine MDMA Screen (NEGATIVE) U Benzodiazepines Scrn (NEGATIVE) Urine Cocaine Screen (NEGATIVE) U Marijuana (THC) Screen (NEGATIVE) 05/27/20 05/27/20 05/28/20 Range/Units 22:21 23:55 02:05 WBC (4.0-10.0) x10^3/uL RBC (4.00-5.50) x10^6/uL Hgb (12.0-16.0) g/dL Hct (33.0-47.0) % MCV (78.0-93.0) fL MCH (26.0-32.0) pg MCHC (32.0-36.0) g/dL RDW Coeff of Roderick (10.0-15.0) % Plt Count (130-400) x10^3/uL Neut % (Auto) (50.0-80.0) % Lymph % (Auto) (25.0-50.0) % Chase % (Auto) (2.0-11.0) % Eos % (Auto) (0.0-4.0) % Baso % (Auto) (0.2-1.2) % Sodium (136-145) mmol/L Potassium (3.5-5.1) mmol/L Chloride (98-107) mmol/L Carbon Dioxide (21-32) mmol/L Anion Gap (10-20) mmol/L BUN (7-18) mg/dL Creatinine (0.55-1.02) mg/dL Est Cr Clr Drug Dosing Estimated GFR (MDRD) Glucose (74-106) mg/dL POC Glucose 174 H 166 H 161 H (74-106) mg/dL Calcium (8.5-10.1) mg/dL Corrected Calcium (8.5-10.1) mg/dL Total Bilirubin (0.2-1.0) mg/dL AST (15-37) U/L ALT (14-59) U/L Alkaline Phosphatase (46-116) U/L Total Protein (6.4-8.2) g/dL Albumin (3.4-5.0) g/dL Globulin Albumin/Globulin Ratio Urine Opiates Screen (NEGATIVE) Ur Buprenorphine Scrn (NEGATIVE) Ur Oxycodone Screen (NEGATIVE) Ur EDDP (Meth Metab) (NEGATIVE) Urine Methadone Screen (NEGATIVE) Ur Barbituates Screen (NEGATIVE) Ur Tricyclics Screen (NEGATIVE) Ur Phencyclidine Scrn (NEGATIVE) Ur Amphetamines Screen (NEGATIVE) U Methamphetamines Scrn (NEGATIVE) Urine MDMA Screen (NEGATIVE) U Benzodiazepines Scrn (NEGATIVE) Urine Cocaine Screen (NEGATIVE) U Marijuana (THC) Screen (NEGATIVE) 05/28/20 05/28/20 05/28/20 Range/Units 03:54 05:45 06:35 WBC 8.2 (4.0-10.0) x10^3/uL RBC 4.27 (4.00-5.50) x10^6/uL Hgb 12.5 D (12.0-16.0) g/dL Hct 35.5 (33.0-47.0) % MCV 83.1 (78.0-93.0) fL MCH 29.3 (26.0-32.0) pg MCHC 35.2 (32.0-36.0) g/dL RDW Coeff of Roderick 14.3 (10.0-15.0) % Plt Count 281 (130-400) x10^3/uL Neut % (Auto) 68.4 (50.0-80.0) % Lymph % (Auto) 25.9 (25.0-50.0) % Chase % (Auto) 4.3 (2.0-11.0) % Eos % (Auto) 0.9 (0.0-4.0) % Baso % (Auto) 0.5 (0.2-1.2) % Sodium (136-145) mmol/L Potassium (3.5-5.1) mmol/L Chloride (98-107) mmol/L Carbon Dioxide (21-32) mmol/L Anion Gap (10-20) mmol/L BUN (7-18) mg/dL Creatinine (0.55-1.02) mg/dL Est Cr Clr Drug Dosing Estimated GFR (MDRD) Glucose (74-106) mg/dL POC Glucose 143 H 125 H (74-106) mg/dL Calcium (8.5-10.1) mg/dL Corrected Calcium (8.5-10.1) mg/dL Total Bilirubin (0.2-1.0) mg/dL AST (15-37) U/L ALT (14-59) U/L Alkaline Phosphatase (46-116) U/L Total Protein (6.4-8.2) g/dL Albumin (3.4-5.0) g/dL Globulin Albumin/Globulin Ratio Urine Opiates Screen (NEGATIVE) Ur Buprenorphine Scrn (NEGATIVE) Ur Oxycodone Screen (NEGATIVE) Ur EDDP (Meth Metab) (NEGATIVE) Urine Methadone Screen (NEGATIVE) Ur Barbituates Screen (NEGATIVE) Ur Tricyclics Screen (NEGATIVE) Ur Phencyclidine Scrn (NEGATIVE) Ur Amphetamines Screen (NEGATIVE) U Methamphetamines Scrn (NEGATIVE) Urine MDMA Screen (NEGATIVE) U Benzodiazepines Scrn (NEGATIVE) Urine Cocaine Screen (NEGATIVE) U Marijuana (THC) Screen (NEGATIVE) 05/28/20 Range/Units 06:35 WBC (4.0-10.0) x10^3/uL RBC (4.00-5.50) x10^6/uL Hgb (12.0-16.0) g/dL Hct (33.0-47.0) % MCV (78.0-93.0) fL MCH (26.0-32.0) pg MCHC (32.0-36.0) g/dL RDW Coeff of Roderick (10.0-15.0) % Plt Count (130-400) x10^3/uL Neut % (Auto) (50.0-80.0) % Lymph % (Auto) (25.0-50.0) % Chase % (Auto) (2.0-11.0) % Eos % (Auto) (0.0-4.0) % Baso % (Auto) (0.2-1.2) % Sodium 141 D (136-145) mmol/L Potassium 3.9 (3.5-5.1) mmol/L Chloride 109 H D (98-107) mmol/L Carbon Dioxide 19 L D (21-32) mmol/L Anion Gap 16.9 (10-20) mmol/L BUN 11 (7-18) mg/dL Creatinine 0.8 (0.55-1.02) mg/dL Est Cr Clr Drug Dosing TNP Estimated GFR (MDRD) > 60 Glucose 149 H (74-106) mg/dL POC Glucose (74-106) mg/dL Calcium 8.0 L (8.5-10.1) mg/dL Corrected Calcium 8.96 (8.5-10.1) mg/dL Total Bilirubin 0.3 (0.2-1.0) mg/dL AST 16 (15-37) U/L ALT 26 (14-59) U/L Alkaline Phosphatase 100 (46-116) U/L Total Protein 5.7 L (6.4-8.2) g/dL Albumin 2.8 L (3.4-5.0) g/dL Globulin 2.9 Albumin/Globulin Ratio 0.97 Urine Opiates Screen (NEGATIVE) Ur Buprenorphine Scrn (NEGATIVE) Ur Oxycodone Screen (NEGATIVE) Ur EDDP (Meth Metab) (NEGATIVE) Urine Methadone Screen (NEGATIVE) Ur Barbituates Screen (NEGATIVE) Ur Tricyclics Screen (NEGATIVE) Ur Phencyclidine Scrn (NEGATIVE) Ur Amphetamines Screen (NEGATIVE) U Methamphetamines Scrn (NEGATIVE) Urine MDMA Screen (NEGATIVE) U Benzodiazepines Scrn (NEGATIVE) Urine Cocaine Screen (NEGATIVE) U Marijuana (THC) Screen (NEGATIVE) Med Orders - Current: Current Medications Acetaminophen (Tylenol Extra Strength) 1,000 mg PO TID [facility] Last Admin: 05/27/20 20:18 Dose: 1,000 mg Documented by: Amlodipine Besylate (Norvasc) 10 mg PO DAILY [facility] Atorvastatin Calcium (Lipitor) 10 mg PO BEDTIME [facility] Last Admin: 05/27/20 20:20 Dose: 10 mg Documented by: Ceftriaxone Sodium (Rocephin) 1 gm IVPUSH DAILY [facility] Last Admin: 05/27/20 22:18 Dose: 1 gm Documented by: Clonazepam (Klonopin) 0.5 - 1 mg PO BID [facility] Last Admin: 05/27/20 20:19 Dose: 1 mg Documented by: Enoxaparin Sodium (Lovenox) 40 mg SUBCUT DAILY [facility] Gabapentin (Neurontin) 800 mg PO TID [facility] Last Admin: 05/27/20 20:19 Dose: 800 mg Documented by: Potassium Chloride/Sodium Chloride (Normal Saline With 20 Meq Kcl) 1,000 mls @ 125 mls/hr IV ASDIRECTED [facility] Last Admin: 05/28/20 03:55 Dose: 125 mls/hr Documented by: Promethazine HCl 12.5 mg/ (Sodium Chloride) 100.5 mls @ 400 mls/hr IV Q4H PRN PRN Reason: Nausea/Vomiting Last Admin: 05/27/20 16:42 Dose: 400 mls/hr Documented by: Insulin Glargine (Lantus) 30 unit SUBCUT BEDTIME [facility] Last Admin: 05/27/20 20:16 Dose: 30 units Documented by: Insulin Human Lispro (Humalog) 4 unit SUBCUT TIDMEALS [facility] Last Admin: 05/27/20 17:47 Dose: 7 units Documented by: Mirtazapine (Remeron) 15 mg PO BEDTIME [facility] Last Admin: 05/27/20 20:18 Dose: 15 mg Documented by: Non-Formulary Medication (Buprenorphine/Naloxone [Buprenorphine-Naloxone 8 Mg-2 Mg]) 1 tab SL TID [facility] Omeprazole (Omeprazole) 20 mg PO DAILY@0700 [facility] Last Admin: 05/28/20 07:01 Dose: Not Given Documented by: Paroxetine HCl (Paxil) 60 mg PO DAILY [facility] Risperidone (Risperidal) 2 mg PO BEDTIME [facility] Last Admin: 05/27/20 20:19 Dose: 2 mg Documented by: Ropinirole HCl (Requip) 0.5 mg PO TID [facility] Last Admin: 05/27/20 20:20 Dose: 0.5 mg Documented by: Senna/Docusate Sodium (Senna Plus) 2 tab PO BID [facility] Last Admin: 05/27/20 20:20 Dose: 2 tab Documented by: Sodium Chloride (Saline Flush) 10 ml FLUSH ASDIRECTED PRN PRN Reason: Keep Vein Open Last Admin: 05/27/20 22:26 Dose: 10 ml Documented by: Trazodone HCl (Trazodone) 100 mg PO BEDTIME [facility] Last Admin: 05/27/20 20:20 Dose: 100 mg Documented by: Discontinued Medications Promethazine HCl 12.5 mg/ (Sodium Chloride) 100.5 mls @ 400 mls/hr IV ONETIME ONE Stop: 05/27/20 09:00 Last Admin: 05/27/20 08:57 Dose: 400 mls/hr Documented by: Sodium Chloride (Normal Saline) 1,000 mls @ 1,000 mls/hr IV .BOLUS ONE Stop: 05/27/20 09:45 Last Admin: 05/27/20 08:57 Dose: 1,000 mls/hr Documented by: Insulin Human Regular (Humulin R) 10 unit IVPUSH ONETIME ONE Stop: 05/27/20 09:44 Last Admin: 05/27/20 09:54 Dose: 10 units Documented by: Insulin Human Regular (Humulin R) 4 unit IVPUSH ONETIME ONE Stop: 05/27/20 16:37 Last Admin: 05/27/20 16:45 Dose: 4 units Documented by: Promethazine HCl (Phenergan) 12.5 mg PO Q4H PRN PRN Reason: Nausea/Vomiting - Exam General: Alert, Oriented HEENT: Pupils Equal, Pupils Reactive, EOMI, Mucous Membr. Moist/[place] Lungs: Clear to Auscultation, Normal Respiratory Effort Cardiovascular: Regular Rate, Regular Rhythm GI/Abdominal Exam: Soft, Non-Tender, No Distention, No Mass Extremities: Normal Inspection, Normal Range of Motion, No Pedal Edema, Normal Capillary Refill Peripheral Pulses: 4+: Radial (L) Skin: Warm, Dry, Intact Neurological: No New Focal Deficit Psy/Mental Status: Alert, Normal Affect, Normal Mood Sepsis Event Note - Evaluation Sepsis Screening Result: No Definite Risk - Focused Exam Vital Signs: Vital Signs Temp Pulse Resp BP Pulse Ox 05/28/20 05:53 36.9 C 63 16 101/61 96 05/28/20 02:00 36.3 C 83 18 100/65 100 05/27/20 22:00 36.4 C 87 20 103/55 L 98 - Problem List Review Problem List Initiated/Reviewed/Updated: Yes - My Orders Last 24 Hours: My Active Orders 05/27/20 08:43 Sodium Chloride 0.9% [Saline Flush] 10 ml FLUSH ASDIRECTED PRN 05/27/20 08:44 Peripheral IV Insertion Adult [OM.PC] Routine 05/27/20 09:48 Patient Status [ADT] Routine 05/27/20 11:45 Intake and Output [RC] 06,18 Up With Assistance [RC] 08,20 VTE/DVT Education [RC] PER UNIT ROUTINE Vital Signs [RC] 06,10,14,18,22,02 Code Status [Resuscitation Status] Routine 05/27/20 11:51 Blood Glucose Check, Bedside [RC] Q2HR 05/27/20 12:00 NS + KCl 20mEq/L [Normal Saline with 20 mEq KCl] 1,000 ml IV ASDIRECTED 05/27/20 16:18 Promethazine [Phenergan] 12.5 mg Sodium Chloride 0.9% [Normal Saline] 100 ml IV Q4H 05/27/20 Dinner Nothing per Oral Now Diet [DIET] 05/27/20 18:00 Insulin Lispro [HumaLOG] 4 unit SUBCUT TIDMEALS 05/27/20 20:00 Acetaminophen [Tylenol Extra Strength] 1,000 mg PO TID Buprenorphine/Naloxone [Buprenorphine-Naloxone 8 MG-2 MG] 1 tab SL TID ClonazePAM [KlonoPIN] 0.5 - 1 mg PO BID Docusate Sodium/Sennosides [Senna Plus] 2 tab PO BID Gabapentin [Neurontin] 800 mg PO TID Insulin Glarg,Human.Rec.Analog [LantUS] 30 unit SUBCUT BEDTIME Mirtazapine [Remeron] 15 mg PO BEDTIME atorvaSTATin [Lipitor] 10 mg PO BEDTIME rOPINIRole [Requip] 0.5 mg PO TID risperiDONE [RisperiDAL] 2 mg PO BEDTIME traZODone 100 mg PO BEDTIME 05/27/20 20:24 Dietary Supplements [RC] 1030,1730 05/27/20 22:00 cefTRIAXone [Rocephin] 1 gm IVPUSH DAILY 05/28/20 07:00 Omeprazole 20 mg PO DAILY@0700 05/28/20 08:00 Enoxaparin [Lovenox] 40 mg SUBCUT DAILY PARoxetine [Paxil] 60 mg PO DAILY amLODIPine [Norvasc] 10 mg PO DAILY 05/28/20 Lunch BRAT Diet [DIET] 05/31/20 07:00 CBC W/O DIFF,HEMOGRAM [HEME] Q3D 06/03/20 07:00 CBC W/O DIFF,HEMOGRAM [HEME] Q3D 06/06/20 07:00 CBC W/O DIFF,HEMOGRAM [HEME] Q3D 06/09/20 07:00 CBC W/O DIFF,HEMOGRAM [HEME] Q3D 06/12/20 07:00 CBC W/O DIFF,HEMOGRAM [HEME] Q3D 06/15/20 07:00 CBC W/O DIFF,HEMOGRAM [HEME] Q3D - Plan Plan:: Advance to bland/BRAT diet. Will continue IV fluids for now. She does complain of some low back pain which she attributes to lying in bed. Will start her on PT and get her up and ambulating. Anticipate discharge later this evening or tomorrow. She still has another 24 hours on her 48 hour obs admission.
[2020-05-28] MEDS: NALOXONE SL SCH ×2 (09:57→10:09)
[2020-05-28] MEDS: BUPRENORPHINE SL SCH ×2 (09:57→10:09)
[2020-05-28] MEDS: Acetaminophen 500 MG Tab PO SCH (09:59)
[2020-05-28] MEDS: cefTRIAXone 1 GM Vial IVPUSH SCH (09:59)
[2020-05-28] MEDS: Gabapentin 400 MG Cap PO SCH (10:00)
[2020-05-28] MEDS: ClonazePAM 0.5 MG Tab PO SCH (10:00)
[2020-05-28] MEDS: rOPINIRole 0.5 MG Tab PO SCH (10:00)
[2020-05-28] MEDS: Sodium Chloride 0.9% 10 ML Syringe FLUSH PRN (10:01)
[2020-05-28] MEDS: Insulin Lispro 100 Units/ML 3 ML Vial SUBCUT SCH (10:09)
[2020-05-29] MEDS ORDERED: amLODIPine 10 MG Tab PO SCH (08:00)
--- NOTE | 2020-06-04 00:08 | PCM.DCSUM1 ---
Discharge Summary - Hospital Course Free Text/Narrative:: Pt. signed out AMA shortly after rounds this AM. She was tolerating fluids and was not experiencing any further nausea/vomiting. Labs were beginning to normalize. Blood glucose has been in the low 100 range. Please see progress note from shortly before she signed out AMA. - Discharge Data Discharge Date: 06/02/20 Discharge Disposition: Against Medical Advice 07 Condition: Good - Referral to Home Health Primary Care Physician: Destiny Escobedo MD - Discharge Diagnosis/Problem(s) (1) Hyperglycemia SNOMED Code(s): 65474729 ICD Code: R73.9 - HYPERGLYCEMIA, UNSPECIFIED Status: Acute - Patient Summary/Data Consults: Consultations 05/28/20 08:58 Consult to Physical Therapy [PT Evaluation and Treatment] [CONS] Routine - Discharge Plan Home Medications: Home Meds atorvaSTATin [Lipitor] 10 mg PO BEDTIME 07/09/17 [History] Omeprazole 20 mg PO DAILY 02/12/18 [History] Acetaminophen [Tylenol Extra Strength] 1,000 mg PO TID 04/25/18 [History] Insulin Glarg,Human.Rec.Analog [Lantus] 30 units SUBCUT BEDTIME 09/18/18 [History] Insulin Lispro [Humalog] 4 unit SUBCUT TIDMEALS 09/18/18 [History] PARoxetine [Paxil] 60 mg PO DAILY 02/04/19 [History] Sennosides/Docusate Sodium [Senna-Docusate Sodium Tablet] 2 tab PO BID 02/04/19 [History] glucagon HCL [Glucagon HCl] 1 mg IM ASDIRECTED PRN 02/04/19 [History] amLODIPine [Norvasc] 10 mg PO DAILY 08/17/19 [History] Lidocaine 2% [Xylocaine 2% Jelly] 1 dose TP DAILY PRN 12/24/19 [History] Mirtazapine [Remeron] 15 mg PO BEDTIME 12/24/19 [History] traZODone HCl [Trazodone HCl] 100 - 300 mg PO BEDTIME 12/24/19 [History] Dextrose [Glucose] 16 gm PO ASDIRECTED PRN 04/05/20 [History] Promethazine [Phenergan] 12.5 mg PO QID PRN 04/05/20 [History] clonazePAM [Clonazepam] 1 - 2 tab PO BID 04/05/20 [History] rOPINIRole [Requip] 0.5 mg PO TID 04/05/20 [History] risperiDONE 2 mg PO BEDTIME 04/05/20 [History] Buprenorphine/Naloxone [Buprenorphine-Naloxone 8 MG-2 MG] 1 tab SL TID 05/27/20 [History] Diclofenac Sodium [Voltaren 1% Gel] 2 gm TOP BID 05/27/20 [History] Diphenhyd/Lidocaine/Nystatin [Magic Mouthwash] 30 ml SSPIT TID PRN 05/27/20 [History] Gabapentin [Neurontin] 800 mg PO TID 05/27/20 [History] Sucralfate [Carafate] 1 gm PO QID PRN 05/27/20 [History] Sulfamethoxazole/Trimethoprim [Bactrim Ds Tablet] 1 tab PO BID 05/27/20 [History] polyethylene glycoL 3350 [MiraLAX] 1 packet PO DAILY 05/27/20 [History] valACYclovir [Valtrex] 1,000 mg PO TID 05/27/20 [History] Forms: ED Department Discharge Referrals: PCP,Unknown [Ordering Only Provider] - - Discharge Summary/Plan Comment DC Time >30 min.: Yes Discharge Summary/Plan Comment: Return to hospital at any time if you wish to be admitted again. Follow-up in clinic in 7-10 days. - Patient Data Vitals - Most Recent: Last Vital Signs Temp 36.9 C 05/28/20 05:53 Pulse 63 05/28/20 05:53 Resp 16 05/28/20 05:53 BP 101/61 05/28/20 05:53 Pulse Ox 96 05/28/20 05:53 Weight - Most Recent: 131.542 kg Med Orders - Current: Current Medications Discontinued Medications Acetaminophen (Tylenol Extra Strength) 1,000 mg PO TID [facility] Last Admin: 05/28/20 09:59 Dose: 1,000 mg Documented by: Amlodipine Besylate (Norvasc) 10 mg PO DAILY [facility] Last Admin: 05/28/20 10:25 Dose: Not Given Documented by: Amlodipine Besylate (Norvasc) 10 mg PO DAILY [facility] Atorvastatin Calcium (Lipitor) 10 mg PO BEDTIME [facility] Last Admin: 05/27/20 20:20 Dose: 10 mg Documented by: Ceftriaxone Sodium (Rocephin) 1 gm IVPUSH DAILY [facility] Last Admin: 05/28/20 09:59 Dose: 1 gm Documented by: Clonazepam (Klonopin) 0.5 - 1 mg PO BID [facility] Last Admin: 05/28/20 10:00 Dose: 1 mg Documented by: Enoxaparin Sodium (Lovenox) 40 mg SUBCUT DAILY [facility] Last Admin: 05/28/20 09:59 Dose: 40 mg Documented by: Gabapentin (Neurontin) 800 mg PO TID [facility] Last Admin: 05/28/20 10:00 Dose: 800 mg Documented by: Promethazine HCl 12.5 mg/ (Sodium Chloride) 100.5 mls @ 400 mls/hr IV ONETIME ONE Stop: 05/27/20 09:00 Last Admin: 05/27/20 08:57 Dose: 400 mls/hr Documented by: Sodium Chloride (Normal Saline) 1,000 mls @ 1,000 mls/hr IV .BOLUS ONE Stop: 05/27/20 09:45 Last Admin: 05/27/20 08:57 Dose: 1,000 mls/hr Documented by: Potassium Chloride/Sodium Chloride (Normal Saline With 20 Meq Kcl) 1,000 mls @ 125 mls/hr IV ASDIRECTED [facility] Last Admin: 05/28/20 03:55 Dose: 125 mls/hr Documented by: Promethazine HCl 12.5 mg/ (Sodium Chloride) 100.5 mls @ 400 mls/hr IV Q4H PRN PRN Reason: Nausea/Vomiting Last Admin: 05/27/20 16:42 Dose: 400 mls/hr Documented by: Insulin Glargine (Lantus) 30 unit SUBCUT BEDTIME [facility] Last Admin: 05/27/20 20:16 Dose: 30 units Documented by: Insulin Human Lispro (Humalog) 4 unit SUBCUT TIDMEALS [facility] Last Admin: 05/28/20 10:09 Dose: Not Given Documented by: Insulin Human Regular (Humulin R) 10 unit IVPUSH ONETIME ONE Stop: 05/27/20 09:44 Last Admin: 05/27/20 09:54 Dose: 10 units Documented by: Insulin Human Regular (Humulin R) 4 unit IVPUSH ONETIME ONE Stop: 05/27/20 16:37 Last Admin: 05/27/20 16:45 Dose: 4 units Documented by: Mirtazapine (Remeron) 15 mg PO BEDTIME [facility] Last Admin: 05/27/20 20:18 Dose: 15 mg Documented by: Buprenorphine/Naloxone 8mg/2mg ( Own Supply) 1 tab SL TID [facility] Last Admin: 05/28/20 10:09 Dose: Not Given Documented by: Omeprazole (Omeprazole) 20 mg PO DAILY@0700 [facility] Last Admin: 05/28/20 07:01 Dose: Not Given Documented by: Paroxetine HCl (Paxil) 60 mg PO DAILY [facility] Last Admin: 05/28/20 10:00 Dose: 60 mg Documented by: Promethazine HCl (Phenergan) 12.5 mg PO Q4H PRN PRN Reason: Nausea/Vomiting Risperidone (Risperidal) 2 mg PO BEDTIME [facility] Last Admin: 05/27/20 20:19 Dose: 2 mg Documented by: Ropinirole HCl (Requip) 0.5 mg PO TID [facility] Last Admin: 05/28/20 10:00 Dose: 0.5 mg Documented by: Senna/Docusate Sodium (Senna Plus) 2 tab PO BID [facility] Last Admin: 05/28/20 10:01 Dose: Not Given Documented by: Sodium Chloride (Saline Flush) 10 ml FLUSH ASDIRECTED PRN PRN Reason: Keep Vein Open Last Admin: 05/28/20 10:01 Dose: 10 ml Documented by: Trazodone HCl (Trazodone) 100 mg PO BEDTIME [facility] Last Admin: 05/27/20 20:20 Dose: 100 mg Documented by:
== END 2020-05-28 12:10 | disposition left against medical advice (07) ==
LOC: VM.ED 08:03 → VM.MS 09:48
PROVIDERS: ADMIT Physician Assistant; ATTEND Physician Assistant
DX: E11.65 Type 2 diabetes mellitus with hyperglycemia (principal); E86.0 Dehydration; I10 Essential (primary) hypertension; K21.9 Gastro-esophageal reflux disease without esophagitis; E11.40 Type 2 diabetes mellitus with diabetic neuropathy, unspecified; F31.9 Bipolar disorder, unspecified; F43.10 Post-traumatic stress disorder, unspecified; F41.9 Anxiety disorder, unspecified; Z79.4 Long term (current) use of insulin; Z79.899 Other long term (current) drug therapy; Z88.6 Allergy status to analgesic agent
CPT/HCPCS: 36415; 80053; 80305; 82962; 85025; 96374; 99285; A9270; J0696; J1650; J1815; J2550; J3480; J7030; J7050; 96361; 96365; 96372; 96375; 96376; 99217; 99220; G0378

== ENCOUNTER 2020-05-31 14:47 | Emergency (ER) | payer MEDICAID ==
--- NOTE | 2020-05-31 15:07 | EDM.PDOC ---
ED HPI GENERAL MEDICAL PROBLEM - General Stated Complaint: hyperglycemia Time Seen by Provider: 05/31/20 14:47 Source of Information: Reports: Patient History Limitations: Reports: Intoxication, Uncooperative - History of Present Illness INITIAL COMMENTS - FREE TEXT/NARRATIVE: Pt. presents to ER with complaints via ambulance with confusion, hyperglycemia, and decrease in alertness. Patient was recently released from the hospital on 05/26 for nausea, vomiting, fatigue, and body aches. She was treated for a UTI on the after being seen in the clinic. She was also tested for covid 19 that day-covid result was negative. The mother did contact the hospital and stated that she has been positive for methamphetamine and her last 3 drug screens. Her mother does believe that she is under the influence currently. Patient does admit to using methamphetamine today and daily for the past few days since discharge from the hospital. Patient is difficult to understand at times but does answer questions appropriately. Patient also has not been taking her insulin as appropriate and as frequently as she supposed to. Patient currently denies any chest pain, shortness of breath, dizziness, lighthea dedness, blurred vision, or peripheral edema. Patient is incomprehensible in her speech at times and is trying to get up and out of bed and combative with staff telling them to leave her alone. Patient does not know the last time she took her insulin or when she last ate. Pt. has a history of poorly controlled type 1 DM with frequent hospitalizations for DKA. She has a history of R BKA. Last A1C was greater than 11. She was last hospitalized from 04/29-05/[address] [facility] with DKA. She was transferred to this facility. Mom states that she 'hasn't really been herself" since she was discharged. In reviewing her chart, it doesn't appear that she as seen for post hospital follow-up until she was seen on the as previously discussed. Hospitalized for DKA on 05/26 and left the facility AMA on 05/27. Severity: Severe Improves with: Reports: None Worsens with: Reports: None Associated Symptoms: Reports: No Other Symptoms - Related Data Allergies Allergy/AdvReac Type Severity Reaction Status Date / Time ibuprofen AdvReac Stomach Verified 05/31/20 16:33 Upset Home Meds: Home Meds atorvaSTATin [Lipitor] 10 mg PO BEDTIME 07/09/17 [History] Omeprazole 20 mg PO DAILY 02/12/18 [History] Acetaminophen [Tylenol Extra Strength] 1,000 mg PO TID 04/25/18 [History] Insulin Glarg,Human.Rec.Analog [Lantus] 30 units SUBCUT BEDTIME 09/18/18 [History] Insulin Lispro [Humalog] 4 unit SUBCUT TIDMEALS 09/18/18 [History] PARoxetine [Paxil] 60 mg PO DAILY 02/04/19 [History] Sennosides/Docusate Sodium [Senna-Docusate Sodium Tablet] 2 tab PO BID 02/04/19 [History] glucagon HCL [Glucagon HCl] 1 mg IM ASDIRECTED PRN 02/04/19 [History] amLODIPine [Norvasc] 10 mg PO DAILY 08/17/19 [History] Lidocaine 2% [Xylocaine 2% Jelly] 1 dose TP DAILY PRN 12/24/19 [History] Mirtazapine [Remeron] 15 mg PO BEDTIME 12/24/19 [History] traZODone HCl [Trazodone HCl] 100 - 300 mg PO BEDTIME 12/24/19 [History] Dextrose [Glucose] 16 gm PO ASDIRECTED PRN 04/05/20 [History] Promethazine [Phenergan] 12.5 mg PO QID PRN 04/05/20 [History] clonazePAM [Clonazepam] 1 - 2 tab PO BID 04/05/20 [History] rOPINIRole [Requip] 0.5 mg PO TID 04/05/20 [History] risperiDONE 2 mg PO BEDTIME 04/05/20 [History] Buprenorphine/Naloxone [Buprenorphine-Naloxone 8 MG-2 MG] 1 tab SL TID 05/27/20 [History] Diclofenac Sodium [Voltaren 1% Gel] 2 gm TOP BID 05/27/20 [History] Diphenhyd/Lidocaine/Nystatin [Magic Mouthwash] 30 ml SSPIT TID PRN 05/27/20 [History] Gabapentin [Neurontin] 800 mg PO TID 05/27/20 [History] Sucralfate [Carafate] 1 gm PO QID PRN 05/27/20 [History] Sulfamethoxazole/Trimethoprim [Bactrim Ds Tablet] 1 tab PO BID 05/27/20 [ History] polyethylene glycoL 3350 [MiraLAX] 1 packet PO DAILY 05/27/20 [History] valACYclovir [Valtrex] 1,000 mg PO TID 05/27/20 [History] Past Medical History HEENT History: Reports: Impaired Vision Cardiovascular History: Reports: Blood Clots/VTE/DVT, Hypertension, Other (See Below) Other Cardiovascular History: blood clot R leg Respiratory History: Reports: Other (See Below) Other Respiratory History: hx of acute respiratory failure Gastrointestinal History: Reports: Irritable Bowel Syndrome, PUD Other Gastrointestinal History: acid reflux Genitourinary History: Reports: Urinary Incontinence, Other (See Below) Other Genitourinary History: hx of UTI, hx of acute kidney injury PARTS ANALYST History: Reports: Musculoskeletal History: Reports: Other (See Below) Other Musculoskeletal History: right foot drop Neurological History: Reports: Neuropathy, Diabetic Psychiatric History: Reports: Anxiety, Bipolar, PTSD, Other (See Below) Other Psychiatric History: chronic narcotic use Endocrine/Metabolic History: Reports: Diabetes, Type I, Other (See Below) Other Endocrine/Metabolic History: 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, hx of ketoacidosis Hematologic History: Reports: Other (See Below) - Infectious Disease History Infectious Disease History: Reports: MRSA - Past Surgical History GI Surgical History: Reports: Cholecystectomy, Other (See Below) Other GI Surgeries/Procedures: Esophagus/ stomach repair Musculoskeletal Surgical History: Reports: Hip Replacement, Other (See Below) Other Musculoskeletal Surgeries/Procedures:: hx of carpal tunnel repair Social & Family History - Family History Family Medical History: Noncontributory Other Psychiatric Family History: 2 brothers with substance abuse problems[ Endocrine/Metabolic: Reports: Diabetes, type II - Caffeine Use Caffeine Use: Reports: Coffee Caffeine Use Comment: patient is lethargic to answer questions - Living Situation & Occupation Living situation: Reports: Occupation: Employed (has 2 children which she shares with jerry, mother has been living with her while she convalesces from DKA and mentla health issues. lizeth at [facility]) ED ROS GENERAL - Review of Systems Review Of Systems: Comprehensive ROS is negative, except as noted in HPI. Constitutional: Reports: Weakness, Decreased Appetite Respiratory: Reports: No Symptoms Cardiovascular: Reports: No Symptoms Endocrine: Reports: No Symptoms GI/Abdominal: Reports: No Symptoms : Reports: No Symptoms Musculoskeletal: Reports: No Symptoms Neurological: Reports: No Symptoms Psychiatric: Reports: No Symptoms Hematologic/Lymphatic: Reports: No Symptoms Immunologic: Reports: No Symptoms ED EXAM, GENERAL - Physical Exam Exam: See Below Exam Limited By: Uncooperative General Appearance: Alert, Moderate Distress Eye Exam: Bilateral Eye: PERRL (4+ pupils ) Nose: Other (white powder substance in both nostrils) Throat/Mouth: Other (very dry/cracked lips ) Head: Atraumatic, Normocephalic Neck: Normal Inspection, Supple, Non-Tender, Full Range of Motion Respiratory/Chest: Lungs Clear, Normal Breath Sounds, Chest Non-Tender Cardiovascular: Normal Peripheral Pulses, Tachycardia Peripheral Pulses: 4+: Radial (L), Radial (R) GI/Abdominal: Normal Bowel Sounds, Soft, Non-Tender, No Distention, No Abnormal Bruit Back Exam: Normal Inspection, Full Range of Motion Extremities: Non-Tender, Normal Capillary Refill, Other (RBKA) Neurological: Alert, Confused, Disoriented Psychiatric: Anxious Skin Exam: Diaphoretic Course - Vital Signs Last Recorded V/S: Last Vital Signs Temp 36.4 C 05/31/20 14:47 Pulse 120 H 05/31/20 14:47 Resp 32 H 05/31/20 14:47 BP 163/130 H 05/31/20 14:47 Pulse Ox 100 05/31/20 14:47 - Orders/Labs/Meds Orders: Active Orders 24 hr Category Date Time Status EKG Documentation Completion [RC] STAT Care 05/31/20 14:49 Active Insulin Regular, Human 100 UNITS in NS 0.9% @ 0.1 UNITS Med 05/31/20 17:00 Ordered /KG/HR (100 ML) Insulin Regular, Human [HumuLIN R] 100 unit Sodium Chloride 0.9% [Normal Saline] 99 ml IV TITRATE Sodium Chloride 0.9% [Normal Saline] 1,000 ml Med 05/31/20 16:35 Active IV ONETIME flumazeniL [Romazicon] Med 05/31/20 16:04 Active 0.2 mg IVPUSH ASDIRECTED PRN Peripheral IV Insertion Adult [OM.PC] Stat Oth 05/31/20 14:49 Ordered Medication Orders Flumazenil (Romazicon) 0.2 mg IVPUSH ASDIRECTED PRN PRN Reason: Respiratory Depression Sodium Chloride (Normal Saline) 1,000 mls @ 1,000 mls/hr IV ONETIME ONE Stop: 05/31/20 17:34 Insulin Human Regular 100 unit (/ Sodium Chloride) 100 mls @ 0 mls/hr IV TITRATE VIVIANA; Protocol Labs: Laboratory Tests 05/31/20 05/31/20 05/31/20 Range/Units 15:13 15:13 15:13 WBC 32.6 H* (4.0-10.0) x10^3/uL RBC 4.58 (4.00-5.50) x10^6/uL Hgb 13.5 (12.0-16.0) g/dL Hct 44.6 (33.0-47.0) % MCV 97.4 H D (78.0-93.0) fL MCH 29.5 (26.0-32.0) pg MCHC 30.3 L (32.0-36.0) g/dL RDW Coeff of Roderick 14.3 (10.0-15.0) % Plt Count 530 H D (130-400) x10^3/uL Add Manual Diff Yes Neutrophils % (Manual) 83 H (50-80) % Band Neutrophils % 4 (0-6) % Lymphocytes % (Manual) 8 L (25-50) % Monocytes % (Manual) 4 (2-11) % Eosinophils % (Manual) 1 (0-4) % Hypersegmented Neuts Few H Platelet Estimate Increased H Giant Platelets Few H Anisocytosis 1+ slight H POC ABG pH (7.35-7.45) pH POC ABG pCO2 (35-48) mmHg POC ABG pO2 (83-108) mmHg POC ABG HCO3 (21-28) mmol/L POC ABG Total CO2 (22-29) mmol/L POC ABG O2 Sat % POC ABG Base Excess (-2-3) mmol/L POC FiO2 Sodium 135 L (136-145) mmol/L Potassium 6.0 H D (3.5-5.1) mmol/L Chloride 97 L D (98-107) mmol/L Carbon Dioxide 2 L D (21-32) mmol/L Anion Gap 42.0 H (10-20) mmol/L BUN 27 H (7-18) mg/dL Creatinine 1.6 H (0.55-1.02) mg/dL Est Cr Clr Drug Dosing TNP Estimated GFR (MDRD) 36 Glucose 1303 H* (74-106) mg/dL Lactic Acid 4.1 H* (0.4-2.0) mmol/L Calcium 8.7 (8.5-10.1) mg/dL Corrected Calcium 8.94 (8.5-10.1) mg/dL Total Bilirubin 0.6 (0.2-1.0) mg/dL AST 27 (15-37) U/L ALT 33 (14-59) U/L Alkaline Phosphatase 162 H (46-116) U/L Total Protein 6.8 (6.4-8.2) g/dL Albumin 3.7 (3.4-5.0) g/dL Globulin 3.1 g/dL Albumin/Globulin Ratio 1.19 09/25/20 Range/Units 15:22 WBC (4.0-10.0) x10^3/uL RBC (4.00-5.50) x10^6/uL Hgb (12.0-16.0) g/dL Hct (33.0-47.0) % MCV (78.0-93.0) fL MCH (26.0-32.0) pg MCHC (32.0-36.0) g/dL RDW Coeff of Roderick (10.0-15.0) % Plt Count (130-400) x10^3/uL Add Manual Diff Neutrophils % (Manual) (50-80) % Band Neutrophils % (0-6) % Lymphocytes % (Manual) (25-50) % Monocytes % (Manual) (2-11) % Eosinophils % (Manual) (0-4) % Hypersegmented Neuts Platelet Estimate Giant Platelets Anisocytosis POC ABG pH 6.89 L* (7.35-7.45) pH POC ABG pCO2 11 L (35-48) mmHg POC ABG pO2 159 H (83-108) mmHg POC ABG HCO3 2.2 L (21-28) mmol/L POC ABG Total CO2 < 5.0 L (22-29) mmol/L POC ABG O2 Sat 97.5 % POC ABG Base Excess < -30 L (-2-3) mmol/L POC FiO2 0.21 Sodium (136-145) mmol/L Potassium (3.5-5.1) mmol/L Chloride (98-107) mmol/L Carbon Dioxide (21-32) mmol/L Anion Gap (10-20) mmol/L BUN (7-18) mg/dL Creatinine (0.55-1.02) mg/dL Est Cr Clr Drug Dosing Estimated GFR (MDRD) Glucose (74-106) mg/dL Lactic Acid (0.4-2.0) mmol/L Calcium (8.5-10.1) mg/dL Corrected Calcium (8.5-10.1) mg/dL Total Bilirubin (0.2-1.0) mg/dL AST (15-37) U/L ALT (14-59) U/L Alkaline Phosphatase (46-116) U/L Total Protein (6.4-8.2) g/dL Albumin (3.4-5.0) g/dL Globulin g/dL Albumin/Globulin Ratio Meds: Medications Generic Name Dose Route Start Last Admin Trade Name Freq PRN Reason Stop Dose Admin Flumazenil 0.2 mg 05/31/20 16:04 Romazicon IVPUSH ASDIRECTED PRN Respiratory Depression Sodium Chloride 1,000 mls @ 1,000 mls/hr 05/31/20 16:35 Normal Saline IV 05/31/20 17:34 ONETIME ONE Insulin Human Regular 100 unit 100 mls @ 0 mls/hr 05/31/20 17:00 / Sodium Chloride IV TITRATE VIVIANA Protocol 0.1 UNITS/KG/HR Discontinued Medications Generic Name Dose Route Start Last Admin Trade Name Freq PRN Reason Stop Dose Admin Lactated Ringer's 1,000 mls @ 1,000 mls/hr 05/31/20 15:20 Ringers, Lactated IV 05/31/20 16:19 ONETIME ONE Insulin Human Regular Confirm 05/31/20 15:54 Humulin R Administered 05/31/20 15:55 Dose 300 unit .ROUTE .STK-MED ONE Insulin Human Regular 10 unit 05/31/20 15:57 Humulin R IVPUSH 05/31/20 15:58 ONETIME ONE Lorazepam 2 mg 05/31/20 16:04 Ativan IVPUSH 05/31/20 16:05 STAT ONE Lorazepam Confirm 05/31/20 16:14 Ativan Administered 05/31/20 16:15 Dose 2 mg .ROUTE .STK-MED ONE Sodium Bicarbonate 100 meq 05/31/20 16:36 Sodium Bicarbonate 8.4% IVPUSH 05/31/20 16:37 ONETIME ONE Departure - Departure Time of Disposition: 17:10 Disposition: DC/Tfer to [facility] Clinical Impression: Substance abuse, Methamphetamine use, High serum potassium level DKA (diabetic ketoacidoses) Qualifiers: Diabetes mellitus type: type 1 Diabetes mellitus complication detail: without coma Qualified Code(s): E10.10 - Type 1 diabetes mellitus with ketoacidosis without coma - Discharge Information Referrals: Uriah Kaye PA-C [Primary Care Provider] - Forms: Interfacility Transfer EMTALA Sepsis Event Note (ED) - Focused Exam Vital Signs: Vital Signs Temp Pulse Resp BP Pulse Ox 05/31/20 14:47 36.4 C 120 H 32 H 163/130 H 100 - My Orders Last 24 Hours: My Active Orders 05/31/20 14:49 EKG Documentation Completion [RC] STAT Peripheral IV Insertion Adult [OM.PC] Stat 05/31/20 16:04 flumazeniL [Romazicon] 0.2 mg IVPUSH ASDIRECTED PRN 05/31/20 16:35 Sodium Chloride 0.9% [Normal Saline] 1,000 ml IV ONETIME 05/31/20 17:00 Insulin Regular, Human 100 UNITS in NS 0.9% @ 0.1 UNITS/KG/HR (100 ML) Insulin Regular, Human [HumuLIN R] 100 unit Sodium Chloride 0.9% [Normal Saline] 99 ml IV TITRATE - Assessment/Plan Last 24 Hours: My Active Orders 05/31/20 14:49 EKG Documentation Completion [RC] STAT Peripheral IV Insertion Adult [OM.PC] Stat 05/31/20 16:04 flumazeniL [Romazicon] 0.2 mg IVPUSH ASDIRECTED PRN 05/31/20 16:35 Sodium Chloride 0.9% [Normal Saline] 1,000 ml IV ONETIME 05/31/20 17:00 Insulin Regular, Human 100 UNITS in NS 0.9% @ 0.1 UNITS/KG/HR (100 ML) Insulin Regular, Human [HumuLIN R] 100 unit Sodium Chloride 0.9% [Normal Saline] 99 ml IV TITRATE Assessment:: 1. DKA 2. Acute substance abuse Plan: 1. Labs completed in the ER. Results reviewed with the patient 2. IV initiated in the emergency department 3. IV fluids provided- 1 L Lactated Ringer bolus 4. Ativan 2mg IV given due to restlessness and agitation 5. ABG completed in ER. 6. Insulin 10units IV given 7. EKG completed. Results reviewed 8. Dr. Yara Lora was contacted regarding patient. She is would prefer this patient to be transferred to a [facility] [place] level of care. [facility] was then contacted regarding transfer. They are on bed capacity and will need to further evaluate the case and call back [phone]. Information was provided that the patients PCP is not comfortable assuming care. 9. 1705 - Dr. Hugo Stark Lineman Apprentice will accept care of the patient. His request is 2 amps Bicarb, 2nd Liter bolus of NS, and insulin drip with second IV if possible. 10. 2 ampbs Bicarb given 11. 1 L NS bolus started prior to discharge 12. Insulin drip started per protocol 13. Patient and nursing staff was updated regarding the plan of care 14. Patient and family are agreeable to the above plan of care 15. All questions and concerns were addressed with the patient and family prior to discharge
[2020-05-31] MEDS ORDERED: Lactated Ringers 1,000 ML IV ONE (15:20)
[2020-05-31 15:32] LABS: PCO2 ARTERIAL,POC 11 mmHg (35-48)
[2020-05-31] MEDS ORDERED: Insulin Regular, Human 100 Units/ML 3 ML Vial ONE (15:54)
[2020-05-31 15:55] LABS: CHLORIDE,CL 97 mmol/L (98-107); SODIUM,NA 135 mmol/L (136-145)
[2020-05-31] MEDS ORDERED: Insulin Regular, Human 100 Units/ML 3 ML Vial IVPUSH ONE (15:57)
[2020-05-31] MEDS ORDERED: Flumazenil 0.1 MG/ML 5 ML MDV IVPUSH PRN (16:04)
[2020-05-31] MEDS ORDERED: LORazepam 2 MG/ML SDV IVPUSH ONE (16:04)
[2020-05-31] MEDS ORDERED: LORazepam 2 MG/ML SDV ONE (16:14)
[2020-05-31] MEDS ORDERED: Sodium Chloride 0.9% 1,000 ML IV ONE (16:35)
[2020-05-31] MEDS ORDERED: Sodium Bicarbonate 8.4% 50 MEQ/50 ML Syringe IVPUSH ONE (16:36)
[2020-05-31 18:17] VITALS: BP 124/75; PULSE 117
== END 2020-05-31 17:48 | disposition short-term general hospital (02) ==
LOC: VM.ED 14:47
DX: E10.10 Type 1 diabetes mellitus with ketoacidosis without coma (principal); F19.10 Other psychoactive substance abuse, uncomplicated; F15.90 Other stimulant use, unspecified, uncomplicated; I10 Essential (primary) hypertension; E11.40 Type 2 diabetes mellitus with diabetic neuropathy, unspecified; E87.5 Hyperkalemia; Z88.6 Allergy status to analgesic agent; Z79.899 Other long term (current) drug therapy
CPT/HCPCS: 36415; 36600; 80053; 82803; 82962; 83605; 85025; 93005; 96361; 96374; 96375; 99284; 99285; J1815; J2060; J7030; J7120

== ENCOUNTER 2020-06-26 09:13 | Emergency (ER) | payer MEDICAID, OTHER ==
[2020-06-26] MEDS ORDERED: Sodium Chloride 0.9% 10 ML Syringe FLUSH PRN (09:35)
[2020-06-26] MEDS ORDERED: fentaNYL 100 MCG/2 ML SDV IVPUSH ONE (09:37)
[2020-06-26] MEDS ORDERED: Succinylcholine 200 MG/10 ML MDV IV STA (09:37)
[2020-06-26] MEDS ORDERED: Etomidate 2 MG/ML 10 ML SDV IVPUSH ONE (09:37)
[2020-06-26] MEDS ORDERED: Propofol 200 MG/20 ML SDV IVPUSH ONE (09:53)
[2020-06-26] MEDS ORDERED: 50% Dextrose in Water 50 ML Syringe IV STA (09:55)
[2020-06-26 09:56] LABS: CHLORIDE,CL 105 mmol/L (98-107); SODIUM,NA 143 mmol/L (136-145)
[2020-06-26 09:58] LABS: ACETAMINOPHEN 0 ug/ml (10-30); ANION GAP 10.1 mmol/L (10-20)
[2020-06-26 09:59] LABS: PCO2 ARTERIAL,POC 47 mmHg (35-48)
[2020-06-26] MEDS ORDERED: propofoL 50 ML IV SCH (10:00)
--- NOTE | 2020-06-26 10:28 | EDM.PDOC ---
ED HPI GENERAL MEDICAL PROBLEM - General Stated Complaint: ER Time Seen by Provider: 06/26/20 09:13 Source of Information: Reports: EMS, Family History Limitations: Reports: Altered Mental Status - History of Present Illness INITIAL COMMENTS - FREE TEXT/NARRATIVE: Patient arrives via ambulance from home after the patient was found by her mother unresponsive in her wheelchair. Per EMS report as well as talking with the mother over the phone the patient lives at home alone. This morning the mother went to check on her and her their apartment building that is right next door and found her in her wheelchair unresponsive. The mother checked her blood sugar and her blood sugar was 211 and she had concerns of the patient going into DKA due to her longstanding history of methamphetamine abuse causing her to going into DKA when she is unresponsive. The patient was given 10 units of regular insulin subcutaneously by the mother and the ambulance was summoned. Upon EMS arrival the patient was unresponsive with shallow regular nonsonorous respirations. They did find her medication bottles into the clonazepam bottles were empty. Rest of the HPI is unobtainable as the patient is unresponsive upon arrival. - Related Data Allergies Allergy/AdvReac Type Severity Reaction Status Date / Time ibuprofen AdvReac Stomach Verified 06/26/20 10:40 Upset Home Meds: Home Meds atorvaSTATin [Lipitor] 10 mg PO BEDTIME 07/09/17 [History] Omeprazole 20 mg PO DAILY 02/12/18 [History] Acetaminophen [Tylenol Extra Strength] 1,000 mg PO TID 04/25/18 [History] Insulin Glarg,Human.Rec.Analog [Lantus] 30 units SUBCUT BEDTIME 09/18/18 [History] Insulin Lispro [Humalog] 4 unit SUBCUT TIDMEALS 09/18/18 [History] PARoxetine [Paxil] 60 mg PO DAILY 02/04/19 [History] Sennosides/Docusate Sodium [Senna-Docusate Sodium Tablet] 2 tab PO BID 02/04/19 [History] glucagon HCL [Glucagon HCl] 1 mg IM ASDIRECTED PRN 02/04/19 [History] amLODIPine [Norvasc] 10 mg PO DAILY 08/17/19 [History] Lidocaine 2% [Xylocaine 2% Jelly] 1 dose TP DAILY PRN 12/24/19 [History] Mirtazapine [Remeron] 15 mg PO BEDTIME 12/24/19 [History] traZODone HCl [Trazodone HCl] 100 - 300 mg PO BEDTIME 12/24/19 [History] Dextrose [Glucose] 16 gm PO ASDIRECTED PRN 04/05/20 [History] Promethazine [Phenergan] 12.5 mg PO QID PRN 04/05/20 [History] clonazePAM [Clonazepam] 1 - 2 tab PO BID 04/05/20 [History] rOPINIRole [Requip] 0.5 mg PO TID 04/05/20 [History] risperiDONE 2 mg PO BEDTIME 04/05/20 [History] Buprenorphine/Naloxone [Buprenorphine-Naloxone 8 MG-2 MG] 1 tab SL TID 05/27/20 [History] Diclofenac Sodium [Voltaren 1% Gel] 2 gm TOP BID 05/27/20 [History] Diphenhyd/Lidocaine/Nystatin [Magic Mouthwash] 30 ml SSPIT TID PRN 05/27/20 [History] Gabapentin [Neurontin] 800 mg PO TID 05/27/20 [History] Sucralfate [Carafate] 1 gm PO QID PRN 05/27/20 [History] Sulfamethoxazole/Trimethoprim [Bactrim Ds Tablet] 1 tab PO BID 05/27/20 [History] polyethylene glycoL 3350 [MiraLAX] 1 packet PO DAILY 05/27/20 [History] valACYclovir [Valtrex] 1,000 mg PO TID 05/27/20 [History] Past Medical History HEENT History: Reports: Impaired Vision Cardiovascular History: Reports: Blood Clots/VTE/DVT, Hypertension, Other (See Below) Other Cardiovascular History: blood clot R leg Respiratory History: Reports: Other (See Below) Other Respiratory History: hx of acute respiratory failure Gastrointestinal History: Reports: Irritable Bowel Syndrome, PUD Other Gastrointestinal History: acid reflux Genitourinary History: Reports: Urinary Incontinence, Other (See Below) Other Genitourinary History: hx of UTI, hx of acute kidney injury [facility] History: Reports: Musculoskeletal History: Reports: Other (See Below) Other Musculoskeletal History: right foot drop Neurological History: Reports: Neuropathy, Diabetic Psychiatric History: Reports: Anxiety, Bipolar, PTSD, Other (See Below) Other Psychiatric History: chronic narcotic use Endocrine/Metabolic History: Reports: Diabetes, Type I, Other (See Below) Other Endocrine/Metabolic History: 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, hx of ketoacidosis Hematologic History: Reports: Other (See Below) - Infectious Disease History Infectious Disease History: Reports: MRSA - Past Surgical History GI Surgical History: Reports: Cholecystectomy, Other (See Below) Other GI Surgeries/Procedures: Esophagus/ stomach repair Musculoskeletal Surgical History: Reports: Hip Replacement, Other (See Below) Other Musculoskeletal Surgeries/Procedures:: hx of carpal tunnel repair Social & Family History - Family History Family Medical History: Noncontributory Other Psychiatric Family History: 2 brothers with substance abuse problems[ Endocrine/Metabolic: Reports: Diabetes, type II - Caffeine Use Caffeine Use: Reports: Coffee Caffeine Use Comment: patient is lethargic to answer questions - Living Situation & Occupation Living situation: Reports: Occupation: Employed (has 2 children which she shares with jerry, mother has been living with her while she convalesces from DKA and mentla health issues. lizeth at [facility]) ED ROS GENERAL - Review of Systems Review Of Systems: Unable To Obtain Reason Not Obtained: Unresponsive. - Physical Exam Exam: See Below Exam Limited By: Altered Mental Status General Appearance: Obtunded (Swallow slow respirations. NO gag reflex. Vomit or food particles in the oropharynx ) Eye Exam: Bilateral Eye: PERRL (3mm sluggis bilaterally. ) Ears: Normal External Exam Nose: Normal Inspection Throat/Mouth: Normal Inspection (other than the food particles vs emesis in the oropharynx. ) Head Exam: Atraumatic, Normocephalic Neck: Normal Inspection Respiratory/Chest: No Respiratory Distress, Lungs Clear, Normal Breath Sounds (swallow slow respirations. ) Cardiovascular: Normal Peripheral Pulses, Regular Rate, Rhythm GI/Abdominal: Normal Bowel Sounds, Soft, Non-Tender (Female) Exam: Deferred Rectal (Female) Exam: Deferred Neuro Exam (Abbreviated): Unresponsive Back Exam: Normal Inspection Extremities: Normal Inspection Psychiatric: Normal Affect, Normal Mood Skin Exam: Intact, Normal Color, Cool, Diaphoretic Endotracheal Intubation - Endotracheal Intubation Time of Intubation: 09:29 ET Intubation Indication: Respiratory Failure, Airway Protection Preparation: Suction, Balloon Tested, BVM Set Up, Difficult Airway Equip Pre-Oxygenation: Assisted with BVM, 100% FiO2 Anesthesia Meds: Etomidate, Fentanyl, Succinylcholine Placement: Orotracheal, Cuffed Cords Visualized: Yes, Grade 1 ETT Size In mm: 7.5 Number of Attempts: 1 Confirmed By: CO2 Indicator, Bilateral Breath Sounds, Chest Xray Tube Secured By: By Provider Course - Orders/Labs/Meds Orders: Active Orders 24 hr Category Date Time Status Insert Urinary Catheter [OM.PC] Q24H Care 06/26/20 09:45 Ordered DRUG SCREEN, URINE (NPL) Stat Lab 06/26/20 09:41 Received SALICYLATE [REF] Stat Lab 06/26/20 09:26 Received Nasogastric Orogastric Tube Insertion [OM.PC] Routine Oth 06/26/20 09:38 Ordered Peripheral IV Insertion Adult [OM.PC] Stat Oth 06/26/20 09:35 Ordered Labs: Laboratory Tests 06/26/20 06/26/20 06/26/20 Range/Units 09:26 09:26 09:26 WBC 6.7 (4.0-10.0) x10^3/uL RBC 4.54 (4.00-5.50) x10^6/uL Hgb 13.1 (12.0-16.0) g/dL Hct 37.3 (33.0-47.0) % MCV 82.2 D (78.0-93.0) fL MCH 28.9 (26.0-32.0) pg MCHC 35.1 (32.0-36.0) g/dL RDW Coeff of Roderick 14.0 (10.0-15.0) % Plt Count 260 D (130-400) x10^3/uL Neut % (Auto) 74.7 (50.0-80.0) % Lymph % (Auto) 15.2 L (25.0-50.0) % Rock % (Auto) 5.5 (2.0-11.0) % Eos % (Auto) 4.0 (0.0-4.0) % Baso % (Auto) 0.6 (0.2-1.2) % POC ABG pH (7.35-7.45) pH POC ABG pCO2 (35-48) mmHg POC ABG pO2 (83-108) mmHg POC ABG HCO3 (21-28) mmol/L POC ABG Total CO2 (22-29) mmol/L POC ABG O2 Sat % POC ABG Base Excess (-2-3) mmol/L POC FiO2 Sodium 143 (136-145) mmol/L Potassium 3.1 L D (3.5-5.1) mmol/L Chloride 105 (98-107) mmol/L Carbon Dioxide 31 D (21-32) mmol/L Anion Gap 10.1 (10-20) mmol/L BUN 5 L (7-18) mg/dL Creatinine 0.6 (0.55-1.02) mg/dL Est Cr Clr Drug Dosing TNP Estimated GFR (MDRD) > 60 Glucose 63 L (74-106) mg/dL POC Glucose (74-106) mg/dL Lactic Acid 1.8 (0.4-2.0) mmol/L Calcium 8.9 (8.5-10.1) mg/dL Corrected Calcium 9.22 (8.5-10.1) mg/dL Total Bilirubin 0.3 (0.2-1.0) mg/dL AST 24 (15-37) U/L ALT 29 (14-59) U/L Alkaline Phosphatase 108 (46-116) U/L Troponin I < 0.017 (<=0.056) ng/mL Total Protein 6.6 (6.4-8.2) g/dL Albumin 3.6 (3.4-5.0) g/dL Globulin 3.0 Albumin/Globulin Ratio 1.20 Urine Color (YELLOW) Urine Appearance (CLEAR) Urine pH (5.0-8.0) Ur Specific [place] Urine Protein (NEGATIVE) mg/dL Urine Glucose (UA) (NEGATIVE) mg/dL Urine Ketones (NEGATIVE) mg/dL Urine Occult Blood (NEGATIVE) Urine Nitrite (NEGATIVE) Urine Bilirubin (NEGATIVE) Urine Urobilinogen (0.2) EU/dL Ur Leukocyte Esterase (NEGATIVE) Acetaminophen 0 L (10-30) ug/ml Ethyl Alcohol < 3 (0-3) mg/dL SARS CoV-2 RNA Rapid PRINCESS (NEGATIVE) 06/26/20 06/26/20 06/26/20 Range/Units 09:36 09:41 09:50 WBC (4.0-10.0) x10^3/uL RBC (4.00-5.50) x10^6/uL Hgb (12.0-16.0) g/dL Hct (33.0-47.0) % MCV (78.0-93.0) fL MCH (26.0-32.0) pg MCHC (32.0-36.0) g/dL RDW Coeff of Roderick (10.0-15.0) % Plt Count (130-400) x10^3/uL Neut % (Auto) (50.0-80.0) % Lymph % (Auto) (25.0-50.0) % Rock % (Auto) (2.0-11.0) % Eos % (Auto) (0.0-4.0) % Baso % (Auto) (0.2-1.2) % POC ABG pH 7.38 (7.35-7.45) pH POC ABG pCO2 47 (35-48) mmHg POC ABG pO2 208 H (83-108) mmHg POC ABG HCO3 28.0 (21-28) mmol/L POC ABG Total CO2 27.8 (22-29) mmol/L POC ABG O2 Sat 99.7 % POC ABG Base Excess 3 (-2-3) mmol/L POC FiO2 0.21 Sodium (136-145) mmol/L Potassium (3.5-5.1) mmol/L Chloride (98-107) mmol/L Carbon Dioxide (21-32) mmol/L Anion Gap (10-20) mmol/L BUN (7-18) mg/dL Creatinine (0.55-1.02) mg/dL Est Cr Clr Drug Dosing Estimated GFR (MDRD) Glucose (74-106) mg/dL POC Glucose 89 (74-106) mg/dL Lactic Acid (0.4-2.0) mmol/L Calcium (8.5-10.1) mg/dL Corrected Calcium (8.5-10.1) mg/dL Total Bilirubin (0.2-1.0) mg/dL AST (15-37) U/L ALT (14-59) U/L Alkaline Phosphatase (46-116) U/L Troponin I (<=0.056) ng/mL Total Protein (6.4-8.2) g/dL Albumin (3.4-5.0) g/dL Globulin Albumin/Globulin Ratio Urine Color Yellow (YELLOW) Urine Appearance Clear (CLEAR) Urine pH 6.5 (5.0-8.0) Ur Specific [place] 1.015 Urine Protein Negative (NEGATIVE) mg/dL Urine Glucose (UA) Negative (NEGATIVE) mg/dL Urine Ketones Negative (NEGATIVE) mg/dL Urine Occult Blood Negative (NEGATIVE) Urine Nitrite Negative (NEGATIVE) Urine Bilirubin Negative (NEGATIVE) Urine Urobilinogen 1.0 (0.2) EU/dL Ur Leukocyte Esterase Negative (NEGATIVE) Acetaminophen (10-30) ug/ml Ethyl Alcohol (0-3) mg/dL SARS CoV-2 RNA Rapid PRINCESS (NEGATIVE) 06/26/20 06/26/20 06/26/20 Range/Units 10:02 10:30 10:36 WBC (4.0-10.0) x10^3/uL RBC (4.00-5.50) x10^6/uL Hgb (12.0-16.0) g/dL Hct (33.0-47.0) % MCV (78.0-93.0) fL MCH (26.0-32.0) pg MCHC (32.0-36.0) g/dL RDW Coeff of Roderick (10.0-15.0) % Plt Count (130-400) x10^3/uL Neut % (Auto) (50.0-80.0) % Lymph % (Auto) (25.0-50.0) % Rock % (Auto) (2.0-11.0) % Eos % (Auto) (0.0-4.0) % Baso % (Auto) (0.2-1.2) % POC ABG pH (7.35-7.45) pH POC ABG pCO2 (35-48) mmHg POC ABG pO2 (83-108) mmHg POC ABG HCO3 (21-28) mmol/L POC ABG Total CO2 (22-29) mmol/L POC ABG O2 Sat % POC ABG Base Excess (-2-3) mmol/L POC FiO2 Sodium (136-145) mmol/L Potassium (3.5-5.1) mmol/L Chloride (98-107) mmol/L Carbon Dioxide (21-32) mmol/L Anion Gap (10-20) mmol/L BUN (7-18) mg/dL Creatinine (0.55-1.02) mg/dL Est Cr Clr Drug Dosing Estimated GFR (MDRD) Glucose (74-106) mg/dL POC Glucose 198 H 133 H (74-106) mg/dL Lactic Acid (0.4-2.0) mmol/L Calcium (8.5-10.1) mg/dL Corrected Calcium (8.5-10.1) mg/dL Total Bilirubin (0.2-1.0) mg/dL AST (15-37) U/L ALT (14-59) U/L Alkaline Phosphatase (46-116) U/L Troponin I (<=0.056) ng/mL Total Protein (6.4-8.2) g/dL Albumin (3.4-5.0) g/dL Globulin Albumin/Globulin Ratio Urine Color (YELLOW) Urine Appearance (CLEAR) Urine pH (5.0-8.0) Ur Specific [place] Urine Protein (NEGATIVE) mg/dL Urine Glucose (UA) (NEGATIVE) mg/dL Urine Ketones (NEGATIVE) mg/dL Urine Occult Blood (NEGATIVE) Urine Nitrite (NEGATIVE) Urine Bilirubin (NEGATIVE) Urine Urobilinogen (0.2) EU/dL Ur Leukocyte Esterase (NEGATIVE) Acetaminophen (10-30) ug/ml Ethyl Alcohol (0-3) mg/dL SARS CoV-2 RNA Rapid PRINCESS Negative (NEGATIVE) Meds: Medications Discontinued Medications Generic Name Dose Route Start Last Admin Trade Name Elfegoq PRN Reason Stop Dose Admin Dextrose/Water 50 ml 06/26/20 09:55 06/26/20 09:47 Dextrose 50% In Water IV 06/26/20 09:56 50 ml NOW STA Administration Etomidate 20 mg 06/26/20 09:37 06/26/20 09:27 Amidate IVPUSH 06/26/20 09:38 20 mg ONETIME ONE Administration Fentanyl 100 mcg 06/26/20 09:37 06/26/20 09:26 Sublimaze IVPUSH 06/26/20 09:38 100 mcg ONETIME ONE Administration Propofol 50 mls @ 13.914 mls/hr 06/26/20 10:00 Diprivan 50 Ml IV .TITRATE VIVIANA Protocol 30 MCG/KG/MIN Propofol Confirm 06/26/20 10:42 Diprivan 50 Ml Administered 06/26/20 10:43 Dose 50 mls @ as directed .ROUTE .STK-MED ONE Propofol 50 mg 06/26/20 09:53 Diprivan 20 Ml IVPUSH 06/26/20 09:54 ONETIME ONE Sodium Chloride 10 ml 06/26/20 09:35 Saline Flush FLUSH ASDIRECTED PRN Keep Vein Open Succinylcholine Chloride 50 mg 06/26/20 09:37 06/26/20 09:28 Quelicin IV 06/26/20 09:38 50 mg NOW STA Administration - Radiology Interpretation Free Text/Narrative:: Chest x-ray post intubation shows endotracheal tube in place. Tip 12 mm above the isabella. NG tube in place tip within the stomach. Lungs are clear. No pleural effusion or pneumothorax. CT of the head per radiology shows negative examination of the brain. - Re-Assessments/Exams Free Text/Narrative Re-Assessment/Exam: 06/26/20 Upon arrival the patient is unresponsive to painful stimuli. There is no spontaneous movement. She has shallow slow respirations. Without a gag reflex concerns for airway protection and respiratory decompensation was paramount. Patient was RSI and intubated after preoxygenation x1 attempt with visual manual laryngoscopy of the ET tube through the cords. She had bilateral lung lung sounds with appropriate end-tidal CO2. Oxygen saturation was 100%. And was placed on the ventilator volume control tidal volume 450 respiratory rate 16 FiO2 50% OG was placed as well as a Roper. Labs are drawn. CT of the head is negative. NO urine drug screen available at this time in the labs. The patient did have some spontaneous coughing and upper extremity movement after intubation and was purposeful movement. Propofol bolus and infusion started. Vitals stable. She did have two bottles of Clonazepam one apros 15 days old empty and one from march with 120 tabs empty as well. There was no note of suicide at house. I spoke with the mother on the phone and she relates that her daughter has been struggling severely with depression lately. The patient has been admitting to her mother that she has been taking extra of her clonazepam and other substances such as methamphetamine on a regular basis to deal with her depression. She has given some off the cuff comments about possible concerns of suicidal ideation. I think specifically in the last couple of days. I called and spoke with Dr. Hernandez at [facility] in [place]. HPI ER course findings and concerns of a possible benzodiazepine overdose intent unknown. I reviewed her laboratory evaluation her normal blood gases as well as her work-up minus her urine drug screen. His questions were answered and he accepted this patient in transfer. 06/26/20 14:52 Departure - Departure Time of Disposition: 10:19 Disposition: DC/Tfer to Acute Hospital 02 Clinical Impression: Unresponsive - Discharge Information Referrals: Yara Lora DO [Primary Care Provider] - Forms: Interfacility Transfer AYANA Critical Care Note - Critical Care Note Total Time (mins): 45 (45 minutes of critical care time in direct management intubation ABGs drawn by myself extemporaneously interpretation of chest x-ray CT head laboratory evaluation consultation with the mother bedside management and consultation with transferring provider.) - My Orders Last 24 Hours: My Active Orders 06/26/20 09:26 SALICYLATE [REF] Stat 06/26/20 09:35 Peripheral IV Insertion Adult [OM.PC] Stat 06/26/20 09:38 Nasogastric Orogastric Tube Insertion [OM.PC] Routine 06/26/20 09:41 DRUG SCREEN, URINE (NPL) Stat 06/26/20 09:45 Insert Urinary Catheter [OM.PC] Q24H - Assessment/Plan Last 24 Hours: My Active Orders 06/26/20 09:26 SALICYLATE [REF] Stat 06/26/20 09:35 Peripheral IV Insertion Adult [OM.PC] Stat 06/26/20 09:38 Nasogastric Orogastric Tube Insertion [OM.PC] Routine 06/26/20 09:41 DRUG SCREEN, URINE (NPL) Stat 06/26/20 09:45 Insert Urinary Catheter [OM.PC] Q24H Assessment:: Unresponsive episode question benzodiazepine overdose intent unknown Respiratory failure/airway protection requiring RSI intubation. Plan: Transferred by ground ALS ambulance to [facility]
--- NOTE | 2020-06-26 10:36 | CR ---
[id number] RAD/RAD Chest PA or AP 1V Exam: RAD Chest PA or AP 1V Indication:POST INTUBATION. Comparison: April 29, 2020. Discussion: Endotracheal tube in place. Tip 12 mm above the isabella. NG tube in place. Tip within the stomach. Lungs are clear. No pleural effusion or pneumothorax. Impression: As above. Danis Seals MD 06/26/20 1035 Thank you for allowing us to participate in the care of your patient.
[2020-06-26] MEDS ORDERED: propofoL 50 ML ONE (10:42)
--- NOTE | 2020-06-26 11:00 | CT ---
[id number] CT/CT Head WO IV EXAM: CT Head WO IV CLINICAL DATA: UNRESPONSIVE. COMPARISON STUDY: 2016. FINDINGS: No intracranial hemorrhage, extra-axial fluid collection, mass, or acute ischemia. No hydrocephalus. Paranasal sinuses and mastoid air cells are clear. IMPRESSION: Negative examination of the brain. Danis Seals MD 06/26/20 1059 Thank you for allowing us to participate in the care of your patient.
== END 2020-06-26 10:53 | disposition short-term general hospital (02) ==
LOC: VM.ED 09:13
DX: J96.90 Respiratory failure, unspecified, unspecified whether with hypoxia or hypercapnia (principal); R40.1 Stupor; I10 Essential (primary) hypertension; F31.9 Bipolar disorder, unspecified; F41.9 Anxiety disorder, unspecified; E10.40 Type 1 diabetes mellitus with diabetic neuropathy, unspecified; K21.9 Gastro-esophageal reflux disease without esophagitis; Z20.828 Contact with and (suspected) exposure to other viral communicable diseases; Z88.6 Allergy status to analgesic agent; Z86.711 Personal history of pulmonary embolism; Z79.899 Other long term (current) drug therapy
CPT/HCPCS: 31500; 36600; 51702; 70450; 71045; 80053; 80307; 81003; 82803; 82962; 83605; 84484; 85025; 96374; 96375; 99285; 99291-25; J0330; J3010; J3490; U0002

== ENCOUNTER 2020-07-13 05:32 | Emergency (ER) | payer MEDICAID ==
[2020-07-13] MEDS ORDERED: Sodium Chloride 0.9% 1,000 ML IV ONE (05:45)
[2020-07-13 05:59] LABS: PCO2 ARTERIAL,POC 16 mmHg (35-48)
[2020-07-13 06:04] LABS: BARBITURATE SCREEN,URINE NEGATIVE (NEGATIVE); BENZODIAZEPINES SCREEN,URINE NEGATIVE (NEGATIVE); EDDP,URINE SCREEN NEGATIVE (NEGATIVE); METHAMPHETAMINE SCREEN, URINE NEGATIVE (NEGATIVE); TCA SCREEN,URINE NEGATIVE (NEGATIVE); THC SCREEN,URINE 50 NG/ML NEGATIVE (NEGATIVE)
[2020-07-13] MEDS ORDERED: Succinylcholine 200 MG/10 ML MDV ONE (06:16)
[2020-07-13] MEDS ORDERED: Chlorhexidine Gluconate 0.12% Oral Rinse 15 ML Cup ONE (06:16)
[2020-07-13 06:19] LABS: CHLORIDE,CL 101 mmol/L (98-107); SODIUM,NA 137 mmol/L (136-145)
[2020-07-13] MEDS ORDERED: Sodium Chloride 0.9% 10 ML Syringe FLUSH PRN (06:19)
[2020-07-13 06:22] LABS: ANION GAP 37.90001 mmol/L (10-20)
[2020-07-13] MEDS ORDERED: Potassium Chloride Riders 20 MEQ in Premix Bag 1 BAG IV ONE (06:23)
[2020-07-13] MEDS ORDERED: Insulin Regular, Human 100 Units/ML 3 ML Vial ONE (06:28)
[2020-07-13] MEDS ORDERED: Sodium Bicarbonate 8.4% 50 MEQ/50 ML Syringe ONE (06:45)
--- NOTE | 2020-07-13 07:00 | EDM.PDOC ---
ED HPI GENERAL MEDICAL PROBLEM - General Chief Complaint: General Stated Complaint: unresponsive Time Seen by Provider: 07/13/20 05:32 Source of Information: Reports: EMS, EMS Notes Reviewed History Limitations: Reports: Respiratory Distress - History of Present Illness INITIAL COMMENTS - FREE TEXT/NARRATIVE: Patient comes into the emergency department via EMS for an episode of unresponsiveness. EMS state that they were called to respond an unresponsive adult individual. Mother who lives with the patient states that her last known well was around 930 last night and everything seemed fine. The mother the patient went to try to wake up the patient this morning and noticed that she had agonal respirations and was no longer responsive. Ambulance crew Attempted multiple times for an IV access and was unsuccessful. Upon arrival to the emergency department the patient remained unresponsive and in acute respiratory distress. Patient was recently intubated and transferred approximately 2 weeks ago for drug overdose and hyperglycemia. When transferring the patient from the ambulance cot to the hospital bed paraphernalia was found under the patient's right arm as well as her hands were covered in black sediment. No other history is obtained. Patient does have a longstanding history of methamphetamine and marijuana abuse and often it correlates with DKA. The mother has been trying to assist in helping with sobriety. No other history is obtainable for the patient is unresponsive Onset: Sudden Quality: Reports: Other Improves with: Reports: Other Associated Symptoms: Reports: No Other Symptoms - Related Data Allergies Allergy/AdvReac Type Severity Reaction Status Date / Time ibuprofen AdvReac Stomach Verified 06/26/20 10:40 Upset Home Meds: Home Meds atorvaSTATin [Lipitor] 10 mg PO BEDTIME 07/09/17 [History] Omeprazole 20 mg PO DAILY 02/12/18 [History] Acetaminophen [Tylenol Extra Strength] 1,000 mg PO TID 04/25/18 [History] Insulin Glarg,Human.Rec.Analog [Lantus] 30 units SUBCUT BEDTIME 09/18/18 [History] Insulin Lispro [Humalog] 4 unit SUBCUT TIDMEALS 09/18/18 [History] PARoxetine [Paxil] 60 mg PO DAILY 02/04/19 [History] Sennosides/Docusate Sodium [Senna-Docusate Sodium Tablet] 2 tab PO BID 02/04/19 [History] glucagon HCL [Glucagon HCl] 1 mg IM ASDIRECTED PRN 02/04/19 [History] amLODIPine [Norvasc] 10 mg PO DAILY 08/17/19 [History] Lidocaine 2% [Xylocaine 2% Jelly] 1 dose TP DAILY PRN 12/24/19 [History] Mirtazapine [Remeron] 15 mg PO BEDTIME 12/24/19 [History] traZODone HCl [Trazodone HCl] 100 - 300 mg PO BEDTIME 12/24/19 [History] Dextrose [Glucose] 16 gm PO ASDIRECTED PRN 04/05/20 [History] Promethazine [Phenergan] 12.5 mg PO QID PRN 04/05/20 [History] clonazePAM [Clonazepam] 1 - 2 tab PO BID 04/05/20 [History] rOPINIRole [Requip] 0.5 mg PO TID 04/05/20 [History] risperiDONE 2 mg PO BEDTIME 04/05/20 [History] Buprenorphine/Naloxone [Buprenorphine-Naloxone 8 MG-2 MG] 1 tab SL TID 05/27/20 [History] Diclofenac Sodium [Voltaren 1% Gel] 2 gm TOP BID 05/27/20 [History] Diphenhyd/Lidocaine/Nystatin [Magic Mouthwash] 30 ml SSPIT TID PRN 05/27/20 [History] Gabapentin [Neurontin] 800 mg PO TID 05/27/20 [History] Sucralfate [Carafate] 1 gm PO QID PRN 05/27/20 [History] Sulfamethoxazole/Trimethoprim [Bactrim Ds Tablet] 1 tab PO BID 05/27/20 [History] polyethylene glycoL 3350 [MiraLAX] 1 packet PO DAILY 05/27/20 [History] valACYclovir [Valtrex] 1,000 mg PO TID 05/27/20 [History] Past Medical History HEENT History: Reports: Impaired Vision Cardiovascular History: Reports: Blood Clots/VTE/DVT, Hypertension, Other (See Below) Other Cardiovascular History: blood clot R leg Respiratory History: Reports: Other (See Below) Other Respiratory History: hx of acute respiratory failure Gastrointestinal History: Reports: Irritable Bowel Syndrome, PUD Other Gastrointestinal History: acid reflux Genitourinary History: Reports: Urinary Incontinence, Other (See Below) Other Genitourinary History: hx of UTI, hx of acute kidney injury [employer] History: Reports: Musculoskeletal History: Reports: Other (See Below) Other Musculoskeletal History: right foot drop Neurological History: Reports: Neuropathy, Diabetic Psychiatric History: Reports: Anxiety, Bipolar, PTSD, Other (See Below) Other Psychiatric History: chronic narcotic use Endocrine/Metabolic History: Reports: Diabetes, Type I, Other (See Below) Other Endocrine/Metabolic History: 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, hx of ketoacidosis Hematologic History: Reports: Other (See Below) - Infectious Disease History Infectious Disease History: Reports: MRSA - Past Surgical History GI Surgical History: Reports: Cholecystectomy, Other (See Below) Other GI Surgeries/Procedures: Esophagus/ stomach repair Musculoskeletal Surgical History: Reports: Hip Replacement, Other (See Below) Other Musculoskeletal Surgeries/Procedures:: hx of carpal tunnel repair Social & Family History - Family History Family Medical History: Noncontributory Other Psychiatric Family History: 2 brothers with substance abuse problems[ Endocrine/Metabolic: Reports: Diabetes, type II - Caffeine Use Caffeine Use: Reports: Coffee Caffeine Use Comment: patient is lethargic to answer questions - Living Situation & Occupation Living situation: Reports: Occupation: Employed (has 2 children which she shares with [employer], mother has been living with her while she convalesces from DKA and mentla health issues. lizeth at [facility]) ED ROS GENERAL - Review of Systems Review Of Systems: Unable To Obtain Reason Not Obtained: unresponsive ED EXAM, GENERAL - Physical Exam Exam: See Below Exam Limited By: Other (unresponsive) General Appearance: Lethargic, Severe Distress Eye Exam: Bilateral Eye: Other (sluggish ) Throat/Mouth: Normal Inspection, Normal Lips Head: Atraumatic, Normocephalic Neck: Normal Inspection, Supple, Full Range of Motion Respiratory/Chest: Respiratory Distress Cardiovascular: Normal Peripheral Pulses Peripheral Pulses: 4+: Radial (L), Radial (R) GI/Abdominal: Normal Bowel Sounds, Soft, Non-Tender, No Organomegaly, No Distention, No Abnormal Bruit Extremities: Pallor, Other (black burnt particles noted on both hands and nailbeds, right-BKA) Neurological: Unresponsive Skin Exam: Cool, Pallor ED GENERAL MEDICAL PROCEDURES - Endotracheal Intubation Time of Intubation: 06:14 ET Intubation Indication: Respiratory Failure, Airway Protection Preparation: Suction, Balloon Tested, BVM Set Up, Difficult Airway Equip Pre-Oxygenation: Assisted with BVM, 100% FiO2 Anesthesia Meds: Etomidate, Fentanyl, Ketamine, Succinylcholine Placement: Orotracheal, Cuffed Cords Visualized: Grade 2 ETT Size In mm: 7.5 Number of Attempts: 1 Confirmed By: CO2 Indicator, Bilateral Breath Sounds, Other (visualization of the cords) Tube Secured By: By Provider Course - Orders/Labs/Meds Orders: Active Orders 24 hr Category Date Time Status Peripheral IV Insertion Adult [OM.PC] Stat Oth 07/13/20 06:18 Ordered Labs: Laboratory Tests 07/13/20 07/13/20 07/13/20 Range/Units 05:50 05:50 05:50 WBC 44.6 H* (4.0-10.0) x10^3/uL RBC 4.61 (4.00-5.50) x10^6/uL Hgb 13.5 (12.0-16.0) g/dL Hct 40.6 (33.0-47.0) % MCV 88.1 D (78.0-93.0) fL MCH 29.3 (26.0-32.0) pg MCHC 33.3 (32.0-36.0) g/dL RDW Coeff of Roderick 14.8 (10.0-15.0) % Plt Count 763 H D (130-400) x10^3/uL Add Manual Diff Yes Neutrophils % (Manual) 85 H (50-80) % Band Neutrophils % 4 (0-6) % Lymphocytes % (Manual) 6 L (25-50) % Monocytes % (Manual) 4 (2-11) % Eosinophils % (Manual) 1 (0-4) % Hypersegmented Neuts Occasional H Platelet Estimate Marked inc H Anisocytosis 1+ slight H PT (9.5-12.3) SEC INR (2.0-3.5) POC ABG pH 6.80 L* (7.35-7.45) pH POC ABG pCO2 16 L (35-48) mmHg POC ABG pO2 133 H (83-108) mmHg POC ABG HCO3 2.5 L (21-28) mmol/L POC ABG Total CO2 < 5.0 L (22-29) mmol/L POC ABG O2 Sat 94.6 % POC ABG Base Excess < -30 L (-2-3) mmol/L POC FiO2 0.32 Sodium 137 (136-145) mmol/L Potassium 6.9 H* D (3.5-5.1) mmol/L Chloride 101 (98-107) mmol/L Carbon Dioxide < 5 L D (21-32) mmol/L Anion Gap 37.71682 H (10-20) mmol/L BUN 31 H D (7-18) mg/dL Creatinine 2.0 H D (0.55-1.02) mg/dL Est Cr Clr Drug Dosing TNP Estimated GFR (MDRD) 28 Glucose 2479 H* (74-106) mg/dL Lactic Acid (0.4-2.0) mmol/L Calcium 8.6 (8.5-10.1) mg/dL Corrected Calcium 8.92 (8.5-10.1) mg/dL Total Bilirubin 0.5 (0.2-1.0) mg/dL AST 33 (15-37) U/L ALT 33 (14-59) U/L Alkaline Phosphatase 167 H (46-116) U/L Troponin I (<=0.056) ng/mL NT-Pro-B Natriuret Pep (<=125) pg/mL Total Protein 7.3 (6.4-8.2) g/dL Albumin 3.6 (3.4-5.0) g/dL Globulin 3.7 Albumin/Globulin Ratio 0.97 Urine Color (YELLOW) Urine Appearance (CLEAR) Urine pH (5.0-8.0) Ur Specific [place] Urine Protein (NEGATIVE) mg/dL Urine Glucose (UA) (NEGATIVE) mg/dL Urine Ketones (NEGATIVE) mg/dL Urine Occult Blood (NEGATIVE) Urine Nitrite (NEGATIVE) Urine Bilirubin (NEGATIVE) Urine Urobilinogen (0.2) EU/dL Ur Leukocyte Esterase (NEGATIVE) U Hyaline Cast (Auto) Urine RBC (NOT SEEN) /HPF Urine WBC (NOT SEEN) /HPF Ur Squamous Epith Cells (NEGATIVE) /HPF Urine Bacteria (NEGATIVE) /HPF Urine Mucus (NEGATIVE) /LPF Urine Opiates Screen (NEGATIVE) Ur Buprenorphine Scrn (NEGATIVE) Ur Oxycodone Screen (NEGATIVE) Ur EDDP (Meth Metab) (NEGATIVE) Urine Methadone Screen (NEGATIVE) Ur Barbiturates Screen (NEGATIVE) Ur Tricyclics Screen (NEGATIVE) Ur Phencyclidine Scrn (NEGATIVE) Ur Amphetamine Screen (NEGATIVE) U Methamphetamines Scrn (NEGATIVE) Urine MDMA Screen (NEGATIVE) U Benzodiazepines Scrn (NEGATIVE) U Cocaine Metab Screen (NEGATIVE) U Marijuana (THC) Screen (NEGATIVE) SARS CoV-2 RNA Rapid PRINCESS (NEGATIVE) 07/13/20 07/13/20 07/13/20 Range/Units 05:50 05:50 05:50 WBC (4.0-10.0) x10^3/uL RBC (4.00-5.50) x10^6/uL Hgb (12.0-16.0) g/dL Hct (33.0-47.0) % MCV (78.0-93.0) fL MCH (26.0-32.0) pg MCHC (32.0-36.0) g/dL RDW Coeff of Roderick (10.0-15.0) % Plt Count (130-400) x10^3/uL Add Manual Diff Neutrophils % (Manual) (50-80) % Band Neutrophils % (0-6) % Lymphocytes % (Manual) (25-50) % Monocytes % (Manual) (2-11) % Eosinophils % (Manual) (0-4) % Hypersegmented Neuts Platelet Estimate Anisocytosis PT 12.7 H (9.5-12.3) SEC INR 1.2 L (2.0-3.5) POC ABG pH (7.35-7.45) pH POC ABG pCO2 (35-48) mmHg POC ABG pO2 (83-108) mmHg POC ABG HCO3 (21-28) mmol/L POC ABG Total CO2 (22-29) mmol/L POC ABG O2 Sat % POC ABG Base Excess (-2-3) mmol/L POC FiO2 Sodium (136-145) mmol/L Potassium (3.5-5.1) mmol/L Chloride (98-107) mmol/L Carbon Dioxide (21-32) mmol/L Anion Gap (10-20) mmol/L BUN (7-18) mg/dL Creatinine (0.55-1.02) mg/dL Est Cr Clr Drug Dosing Estimated GFR (MDRD) Glucose (74-106) mg/dL Lactic Acid 3.1 H* (0.4-2.0) mmol/L Calcium (8.5-10.1) mg/dL Corrected Calcium (8.5-10.1) mg/dL Total Bilirubin (0.2-1.0) mg/dL AST (15-37) U/L ALT (14-59) U/L Alkaline Phosphatase (46-116) U/L Troponin I < 0.017 (<=0.056) ng/mL NT-Pro-B Natriuret Pep 1292 H (<=125) pg/mL Total Protein (6.4-8.2) g/dL Albumin (3.4-5.0) g/dL Globulin Albumin/Globulin Ratio Urine Color (YELLOW) Urine Appearance (CLEAR) Urine pH (5.0-8.0) Ur Specific [place] Urine Protein (NEGATIVE) mg/dL Urine Glucose (UA) (NEGATIVE) mg/dL Urine Ketones (NEGATIVE) mg/dL Urine Occult Blood (NEGATIVE) Urine Nitrite (NEGATIVE) Urine Bilirubin (NEGATIVE) Urine Urobilinogen (0.2) EU/dL Ur Leukocyte Esterase (NEGATIVE) U Hyaline Cast (Auto) Urine RBC (NOT SEEN) /HPF Urine WBC (NOT SEEN) /HPF Ur Squamous Epith Cells (NEGATIVE) /HPF Urine Bacteria (NEGATIVE) /HPF Urine Mucus (NEGATIVE) /LPF Urine Opiates Screen (NEGATIVE) Ur Buprenorphine Scrn (NEGATIVE) Ur Oxycodone Screen (NEGATIVE) Ur EDDP (Meth Metab) (NEGATIVE) Urine Methadone Screen (NEGATIVE) Ur Barbiturates Screen (NEGATIVE) Ur Tricyclics Screen (NEGATIVE) Ur Phencyclidine Scrn (NEGATIVE) Ur Amphetamine Screen (NEGATIVE) U Methamphetamines Scrn (NEGATIVE) Urine MDMA Screen (NEGATIVE) U Benzodiazepines Scrn (NEGATIVE) U Cocaine Metab Screen (NEGATIVE) U Marijuana (THC) Screen (NEGATIVE) SARS CoV-2 RNA Rapid PRINCESS (NEGATIVE) 07/13/20 07/13/20 07/13/20 Range/Units 05:52 05:52 06:02 WBC (4.0-10.0) x10^3/uL RBC (4.00-5.50) x10^6/uL Hgb (12.0-16.0) g/dL Hct (33.0-47.0) % MCV (78.0-93.0) fL MCH (26.0-32.0) pg MCHC (32.0-36.0) g/dL RDW Coeff of Roderick (10.0-15.0) % Plt Count (130-400) x10^3/uL Add Manual Diff Neutrophils % (Manual) (50-80) % Band Neutrophils % (0-6) % Lymphocytes % (Manual) (25-50) % Monocytes % (Manual) (2-11) % Eosinophils % (Manual) (0-4) % Hypersegmented Neuts Platelet Estimate Anisocytosis PT (9.5-12.3) SEC INR (2.0-3.5) POC ABG pH (7.35-7.45) pH POC ABG pCO2 (35-48) mmHg POC ABG pO2 (83-108) mmHg POC ABG HCO3 (21-28) mmol/L POC ABG Total CO2 (22-29) mmol/L POC ABG O2 Sat % POC ABG Base Excess (-2-3) mmol/L POC FiO2 Sodium (136-145) mmol/L Potassium (3.5-5.1) mmol/L Chloride (98-107) mmol/L Carbon Dioxide (21-32) mmol/L Anion Gap (10-20) mmol/L BUN (7-18) mg/dL Creatinine (0.55-1.02) mg/dL Est Cr Clr Drug Dosing Estimated GFR (MDRD) Glucose (74-106) mg/dL Lactic Acid (0.4-2.0) mmol/L Calcium (8.5-10.1) mg/dL Corrected Calcium (8.5-10.1) mg/dL Total Bilirubin (0.2-1.0) mg/dL AST (15-37) U/L ALT (14-59) U/L Alkaline Phosphatase (46-116) U/L Troponin I (<=0.056) ng/mL NT-Pro-B Natriuret Pep (<=125) pg/mL Total Protein (6.4-8.2) g/dL Albumin (3.4-5.0) g/dL Globulin Albumin/Globulin Ratio Urine Color Yellow (YELLOW) Urine Appearance Clear (CLEAR) Urine pH 5.5 (5.0-8.0) Ur Specific [place] 1.020 Urine Protein 30 H (NEGATIVE) mg/dL Urine Glucose (UA) 500 H (NEGATIVE) mg/dL Urine Ketones >=160 H (NEGATIVE) mg/dL Urine Occult Blood Negative (NEGATIVE) Urine Nitrite Negative (NEGATIVE) Urine Bilirubin Small H (NEGATIVE) Urine Urobilinogen 0.2 (0.2) EU/dL Ur Leukocyte Esterase Negative (NEGATIVE) U Hyaline Cast (Auto) Few Urine RBC 0-5 (NOT SEEN) /HPF Urine WBC 0-5 (NOT SEEN) /HPF Ur Squamous Epith Cells Not seen (NEGATIVE) /HPF Urine Bacteria Rare (NEGATIVE) /HPF Urine Mucus Occasional H (NEGATIVE) /LPF Urine Opiates Screen Negative (NEGATIVE) Ur Buprenorphine Scrn Positive H (NEGATIVE) Ur Oxycodone Screen Negative (NEGATIVE) Ur EDDP (Meth Metab) Negative (NEGATIVE) Urine Methadone Screen Negative (NEGATIVE) Ur Barbiturates Screen Negative (NEGATIVE) Ur Tricyclics Screen Negative (NEGATIVE) Ur Phencyclidine Scrn Negative (NEGATIVE) Ur Amphetamine Screen Negative (NEGATIVE) U Methamphetamines Scrn Negative (NEGATIVE) Urine MDMA Screen Negative (NEGATIVE) U Benzodiazepines Scrn Negative (NEGATIVE) U Cocaine Metab Screen Negative (NEGATIVE) U Marijuana (THC) Screen Negative (NEGATIVE) SARS CoV-2 RNA Rapid PRINCESS Negative (NEGATIVE) Meds: Medications Discontinued Medications Generic Name Dose Route Start Last Admin Trade Name Freq PRN Reason Stop Dose Admin Chlorhexidine Gluconate Confirm 07/13/20 06:16 Peridex 0.12% Rinse Administered 07/13/20 06:17 Dose 15 ml .ROUTE .STK-MED ONE Etomidate Confirm 07/13/20 07:41 Amidate Administered 07/13/20 07:42 Dose 20 mg .ROUTE .STK-MED ONE Fentanyl Confirm 07/13/20 07:40 Sublimaze Administered 07/13/20 07:41 Dose 200 mcg .ROUTE .STK-MED ONE Insulin Human Regular 100 unit 100 mls @ 6.6 mls/hr 07/13/20 06:30 / Sodium Chloride IV TITRATE VIVIANA Protocol 0.1 UNITS/KG/HR Potassium Chloride 20 meq/ 50 mls @ 50 mls/hr 07/13/20 06:23 Premix IV 07/13/20 07:22 ONETIME ONE Insulin Human Regular Confirm 07/13/20 06:28 Humulin R Administered 07/13/20 06:29 Dose 300 unit .ROUTE .STK-MED ONE Lidocaine HCl Confirm 07/13/20 07:49 Xylocaine-Mpf 4% Administered 07/13/20 07:50 Dose 5 ml .ROUTE .STK-MED ONE Midazolam HCl Confirm 07/13/20 07:41 Versed 1 Mg/Ml Administered 07/13/20 07:42 Dose 8 mg .ROUTE .STK-MED ONE Sodium Bicarbonate Confirm 07/13/20 06:45 Sodium Bicarbonate 8.4% Administered 07/13/20 06:46 Dose 100 meq .ROUTE .STK-MED ONE Sodium Chloride 10 ml 07/13/20 06:19 Saline Flush FLUSH ASDIRECTED PRN Keep Vein Open Succinylcholine Chloride Confirm 07/13/20 06:16 Quelicin Administered 07/13/20 06:17 Dose 200 mg .ROUTE .STK-MED ONE - Re-Assessments/Exams Free Text/Narrative Re-Assessment/Exam: 07/13/20 08:12 Patient discharged in critical condition. Vital signs within patients normal limits. Tolerating the vent however. 22 gauge flushes well and IO running insulin drip. Departure - Departure Time of Disposition: 06:20 Disposition: DC/Tfer to Acute Hospital 02 Condition: Critical Clinical Impression: Drug abuse and dependence, Hyperkalemia, Hyperglycemia Respiratory failure Qualifiers: Chronicity: acute Respiratory failure complication: hypercapnia Qualified Code(s): J96.02 - Acute respiratory failure with hypercapnia DKA (diabetic ketoacidoses) Qualifiers: Diabetes mellitus type: type 1 Diabetes mellitus complication detail: without coma Qualified Code(s): E10.10 - Type 1 diabetes mellitus with ketoacidosis without coma DKA, type 1 Qualifiers: Diabetes mellitus complication detail: without coma Qualified Code(s): E10.10 - Type 1 diabetes mellitus with ketoacidosis without coma - Discharge Information Referrals: PCP,Unknown [Primary Care Provider] - Forms: ED Department Discharge - My Orders Last 24 Hours: My Active Orders 07/13/20 06:18 Peripheral IV Insertion Adult [OM.PC] Stat - Assessment/Plan Last 24 Hours: My Active Orders 07/13/20 06:18 Peripheral IV Insertion Adult [OM.PC] Stat Assessment:: 1. unresponsive 2. DKA Plan: 1. Labs completed in the ER. Results reviewed with the patient 2. Covid-19 test negative 3. IV fluids provided 1 L NS 4. Insulin 10units given and insulin drip started 7units/hr 5. RSI for intubation. Successful placement verification via vocal cord, breath sounds, condensation, and xray verification 6. bicarb 2 amps given IV. 7. IO initiated in the left leg due to poor IV access 8. UA drug completed in ER. 9. nursing staff was updated regarding the plan of care 10. [facility] ICU contacted Dr. Lauren who will accept the patient to critical care. 11. Patient was transferred via ambulance for further care and management. 12. Please see critical care record for medications, dosing, and times.
[2020-07-13] MEDS ORDERED: fentaNYL 100 MCG/2 ML SDV ONE (07:40)
[2020-07-13] MEDS ORDERED: Midazolam 1 MG/ML 2 ML SDV ONE (07:41)
[2020-07-13] MEDS ORDERED: Etomidate 2 MG/ML 10 ML SDV ONE (07:41)
--- NOTE | 2020-07-13 07:42 | CR ---
[id number] RAD/RAD Chest PA or AP 1V EXAM: FRONTAL CHEST INDICATION: INTUBATION COMPARISON: June 26, 2020. DISCUSSION: Endotracheal tube tip about 20 mm above the isabella. Stable mild elevation of the right hemidiaphragm. New or increased mild bibasilar atelectasis and/or infiltrates. Normal heart size. IMPRESSION: 1. Endotracheal tube tip 20 mm above the isabella. 2. New or increased mild bibasilar infiltrates and/or atelectasis. Isidoro Hidalgo MD 07/13/20 0741 Thank you for allowing us to participate in the care of your patient.
[2020-07-13] MEDS ORDERED: Lidocaine 4% 5 ML Amp ONE (07:49)
== END 2020-07-13 07:01 | disposition short-term general hospital (02) ==
LOC: VM.ED 05:32
DX: J96.02 Acute respiratory failure with hypercapnia (principal); E10.10 Type 1 diabetes mellitus with ketoacidosis without coma; E10.65 Type 1 diabetes mellitus with hyperglycemia; E87.5 Hyperkalemia; I10 Essential (primary) hypertension; K21.9 Gastro-esophageal reflux disease without esophagitis; E10.42 Type 1 diabetes mellitus with diabetic polyneuropathy; F31.9 Bipolar disorder, unspecified; F41.9 Anxiety disorder, unspecified; F15.20 Other stimulant dependence, uncomplicated; F12.20 Cannabis dependence, uncomplicated; Z20.828 Contact with and (suspected) exposure to other viral communicable diseases; Z88.6 Allergy status to analgesic agent; Z79.899 Other long term (current) drug therapy
CPT/HCPCS: 31500; 36415; 36600; 36680; 51702; 71045; 80053; 80305; 81001; 82803; 83605; 83880; 84484; 85025; 85610; 87635; 93005; 96374; 99285; J0330; J1815; J2250; J3010; J3490; J7030; U0002

== ENCOUNTER 2020-08-10 15:50 | Emergency (ER) | payer MEDICAID ==
[2020-08-10] MEDS ORDERED: Sodium Chloride 0.9% 10 ML Syringe FLUSH PRN (15:54)
[2020-08-10] MEDS: Lactated Ringers 1,000 ML IV ONE ×2 (16:00→16:45)
[2020-08-10 16:43] LABS: CHLORIDE,CL 92 mmol/L (98-107)
[2020-08-10 16:46] LABS: ANION GAP 27.1 mmol/L (10-20)
[2020-08-10 16:47] LABS: PTT,PARTIAL THROMBOPLSTIN TIME 27.6 SEC (25.6-32.8); SODIUM,NA 127 mmol/L (136-145)
[2020-08-10 16:55] LABS: METHAMPHETAMINE SCREEN, URINE POSITIVE (NEGATIVE)
[2020-08-10 16:56] LABS: BARBITURATE SCREEN,URINE NEGATIVE (NEGATIVE); BENZODIAZEPINES SCREEN,URINE NEGATIVE (NEGATIVE); EDDP,URINE SCREEN NEGATIVE (NEGATIVE); TCA SCREEN,URINE NEGATIVE (NEGATIVE); THC SCREEN,URINE 50 NG/ML NEGATIVE (NEGATIVE)
[2020-08-10] MEDS ORDERED: Sodium Chloride 0.9% 1,000 ML IV SCH (17:15)
--- NOTE | 2020-08-10 17:16 | CR ---
[id number] RAD/RAD Chest PA or AP 1V EXAM: RAD Chest PA or AP 1V INDICATION: DECREASED LOC. COMPARISON: July 13, 2020. DISCUSSION: Endotracheal and nasogastric tubes have been removed since the prior examination. Cardiomediastinal silhouette is unchanged from the prior examination. Low lung volumes result in bibasilar vascular crowding/atelectasis. Within this limitation, no evidence of pneumonia, effusion, edema, or pneumothorax. IMPRESSION: As above. Danis Seals MD 08/10/20 [id number] Thank you for allowing us to participate in the care of your patient.
[2020-08-10] MEDS ORDERED: Insulin Regular, Human 100 Units/ML 3 ML Vial ONE (17:28)
[2020-08-10] MEDS ORDERED: Sodium Chloride 0.9% with KCl 1,000 ML IV SCH (17:30)
--- NOTE | 2020-08-10 17:47 | EDM.PDOC ---
ED HPI GENERAL MEDICAL PROBLEM - General Stated Complaint: DIABETES TROUBLES Time Seen by Provider: 08/10/20 16:05 Source of Information: Reports: Family History Limitations: Reports: Altered Mental Status - History of Present Illness INITIAL COMMENTS - FREE TEXT/NARRATIVE: Patient comes emergency department today by personal vehicle with her mother with concerns of diabetic ketoacidosis. This patient is well-known to myself as well as the hospital for recurrent multiple episodes of polysubstance overdose as well as DKA episodes. She recently has been hospitalized 3 or 4 times with severe acidemia in the presence of diabetic ketoacidosis. She did not have any problems with her blood sugars yesterday according to the mother. Today her blood sugar Reading high. She had given herself multiple doses of insulin prior to coming in the emergency department. The mother was concerned for her decreased level of consciousness which is why she brought her to the emergency department. Upon arrival the patient is obtunded and really does not speak much verbally when she arrives. Rest of the HPI is unobtainable. The mother also relates that the patient did not complain of any other symptoms yesterday no fever no chills no nausea no vomiting. - Related Data Allergies Allergy/AdvReac Type Severity Reaction Status Date / Time ibuprofen AdvReac Stomach Verified 08/10/20 17:43 Upset Home Meds: Home Meds atorvaSTATin [Lipitor] 10 mg PO BEDTIME 07/09/17 [History] Omeprazole 20 mg PO DAILY 02/12/18 [History] Acetaminophen [Tylenol Extra Strength] 1,000 mg PO TID 04/25/18 [History] Insulin Glarg,Human.Rec.Analog [Lantus] 30 units SUBCUT BEDTIME 09/18/18 [History] Insulin Lispro [Humalog] 4 unit SUBCUT TIDMEALS 09/18/18 [History] PARoxetine [Paxil] 60 mg PO DAILY 02/04/19 [History] Sennosides/Docusate Sodium [Senna-Docusate Sodium Tablet] 2 tab PO BID 02/04/19 [History] glucagon HCL [Glucagon HCl] 1 mg IM ASDIRECTED PRN 02/04/19 [History] amLODIPine [Norvasc] 10 mg PO DAILY 08/17/19 [History] Lidocaine 2% [Xylocaine 2% Jelly] 1 dose TP DAILY PRN 12/24/19 [History] Mirtazapine [Remeron] 15 mg PO BEDTIME 12/24/19 [History] traZODone HCl [Trazodone HCl] 100 - 300 mg PO BEDTIME 12/24/19 [History] Dextrose [Glucose] 16 gm PO ASDIRECTED PRN 04/05/20 [History] Promethazine [Phenergan] 12.5 mg PO QID PRN 04/05/20 [History] clonazePAM [Clonazepam] 1 - 2 tab PO BID 04/05/20 [History] rOPINIRole [Requip] 0.5 mg PO TID 04/05/20 [History] risperiDONE 2 mg PO BEDTIME 04/05/20 [History] Buprenorphine/Naloxone [Buprenorphine-Naloxone 8 MG-2 MG] 1 tab SL TID 05/27/20 [History] Diclofenac Sodium [Voltaren 1% Gel] 2 gm TOP BID 05/27/20 [History] Diphenhyd/Lidocaine/Nystatin [Magic Mouthwash] 30 ml SSPIT TID PRN 05/27/20 [History] Gabapentin [Neurontin] 800 mg PO TID 05/27/20 [History] Sucralfate [Carafate] 1 gm PO QID PRN 05/27/20 [History] Sulfamethoxazole/Trimethoprim [Bactrim Ds Tablet] 1 tab PO BID 05/27/20 [History] polyethylene glycoL 3350 [MiraLAX] 1 packet PO DAILY 05/27/20 [History] valACYclovir [Valtrex] 1,000 mg PO TID 05/27/20 [History] Past Medical History HEENT History: Reports: Impaired Vision Cardiovascular History: Reports: Blood Clots/VTE/DVT, Hypertension, Other (See Below) Other Cardiovascular History: blood clot R leg Respiratory History: Reports: Other (See Below) Other Respiratory History: hx of acute respiratory failure Gastrointestinal History: Reports: Irritable Bowel Syndrome, PUD Other Gastrointestinal History: acid reflux Genitourinary History: Reports: Urinary Incontinence, Other (See Below) Other Genitourinary History: hx of UTI, hx of acute kidney injury [employer] History: Reports: Musculoskeletal History: Reports: Other (See Below) Other Musculoskeletal History: right foot drop Neurological History: Reports: Neuropathy, Diabetic Psychiatric History: Reports: Anxiety, Bipolar, PTSD, Other (See Below) Other Psychiatric History: chronic narcotic use Endocrine/Metabolic History: Reports: Diabetes, Type I, Other (See Below) Other Endocrine/Metabolic History: 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, hx of ketoacidosis Hematologic History: Reports: Other (See Below) - Infectious Disease History Infectious Disease History: Reports: MRSA - Past Surgical History HEENT Surgical History: Reports: Adenoidectomy, Tonsillectomy, Other (See Below) Other HEENT Surgeries/Procedures: nasal surgery GI Surgical History: Reports: Cholecystectomy, Other (See Below) Other GI Surgeries/Procedures: Esophagus/ stomach repair Musculoskeletal Surgical History: Reports: Hip Replacement, Other (See Below) Other Musculoskeletal Surgeries/Procedures:: hx of carpal tunnel repair Social & Family History - Family History Family Medical History: No Pertinent Family History Other Psychiatric Family History: 2 brothers with substance abuse problems[ Endocrine/Metabolic: Reports: Diabetes, type II - Caffeine Use Caffeine Use: Reports: Coffee Caffeine Use Comment: patient is lethargic to answer questions - Living Situation & Occupation Living situation: Reports: Occupation: Employed (has 2 children which she shares with jerry, mother has been living with her while she convalesces from DKA and mentla health issues. lizeth at [facility]) ED ROS GENERAL - Review of Systems Review Of Systems: Comprehensive ROS is negative, except as noted in HPI. ED EXAM GENERAL NO PERIP PULSE - Physical Exam Exam: See Below Exam Limited By: Altered Mental Status General Appearance: Obtunded Eye Exam: Bilateral Eye: EOMI, PERRL Ears: Normal External Exam Nose: Normal Inspection Throat/Mouth: No: Normal Inspection (Oral mucosa is dry.) Head: Atraumatic, Normocephalic Neck: Normal Inspection, Supple, Non-Tender, Full Range of Motion Respiratory/Chest: No Respiratory Distress, Lungs Clear, Normal Breath Sounds, Chest Non-Tender Cardiovascular: Normal Peripheral Pulses, Regular Rate, Rhythm GI/Abdominal: Normal Bowel Sounds, Soft, Non-Tender, No Organomegaly (Female) Exam: Deferred Rectal (Female) Exam: Deferred Extremities: Normal Inspection (Cool skin peripherally. Normal capillary refill. Unremarkable right BKA.) Neurological: Other (She is obtunded. There is no sonorous respirations. There is no blurred breathing. She is controlling her oral secretions.) Skin Exam: Dry, Intact, Cool, Pallor #1 Interpretation EKG Date: 08/10/20 Time: 16:10 Rate (Beats/Min): 103 Stow: Normal P-Wave: Present QRS: Normal ST-T: Normal QT: Normal Course - Vital Signs Last Recorded V/S: Last Vital Signs Temp 99.2 F 08/10/20 15:55 Pulse 86 08/10/20 17:54 Resp 16 08/10/20 17:54 BP 103/62 08/10/20 17:54 Pulse Ox 99 08/10/20 17:54 - Orders/Labs/Meds Labs: Laboratory Tests 08/10/20 08/10/20 08/10/20 Range/Units 15:56 16:05 16:05 WBC 11.3 H (4.0-10.0) x10^3/uL RBC 4.08 (4.00-5.50) x10^6/uL Hgb 11.7 L D (12.0-16.0) g/dL Hct 35.1 (33.0-47.0) % MCV 86.0 (78.0-93.0) fL MCH 28.7 (26.0-32.0) pg MCHC 33.3 (32.0-36.0) g/dL RDW Coeff of Roderick 13.6 (10.0-15.0) % Plt Count 287 D (130-400) x10^3/uL Neut % (Auto) 90.9 H (50.0-80.0) % Lymph % (Auto) 6.0 L (25.0-50.0) % [place] % (Auto) 2.6 (2.0-11.0) % Eos % (Auto) 0.1 (0.0-4.0) % Baso % (Auto) 0.4 (0.2-1.2) % PT (9.5-12.3) SEC INR (2.0-3.5) APTT (25.6-32.8) SEC VBG pH POC VBG pH 7.16 L* (7.32-7.43) pH VBG pCO2 POC VBG pCO2 35 L (41-51) mmHg VBG pO2 POC VBG pO2 155 mmHg VBG HCO3 POC VBG HCO3 12 L (22-29) mmol/L VBG Total CO2 VBG O2 Saturation POC Venous O2 Sat 99 % VBG Base Excess -16 L (-(2)-3) mmol/L Oxygen Flow Rate POC FiO2 0 Blood Gas Comments Sodium 127 L* D (136-145) mmol/L Potassium 4.1 D (3.5-5.1) mmol/L Chloride 92 L (98-107) mmol/L Carbon Dioxide 12 L (21-32) mmol/L POC Venous Total CO2 13 L (23-30) mmol/L Anion Gap 27.1 H (10-20) mmol/L BUN 19 H (7-18) mg/dL Creatinine 1.2 H (0.55-1.02) mg/dL Est Cr Clr Drug Dosing TNP Estimated GFR (MDRD) 50 Glucose 550 H* (74-106) mg/dL POC Glucose (74-106) mg/dL Lactic Acid (0.4-2.0) mmol/L Calcium 8.9 (8.5-10.1) mg/dL Corrected Calcium 8.82 (8.5-10.1) mg/dL Magnesium 2.0 (1.8-2.4) mg/dL Total Bilirubin 0.8 (0.2-1.0) mg/dL AST 24 (15-37) U/L ALT 36 (14-59) U/L Alkaline Phosphatase 129 H (46-116) U/L Troponin I < 0.017 (<=0.056) ng/mL C-Reactive Protein 0.6 (<=0.9) mg/dL Total Protein 7.7 (6.4-8.2) g/dL Albumin 4.1 (3.4-5.0) g/dL Globulin 3.6 Albumin/Globulin Ratio 1.14 Lipase 25 L (73-393) U/L Urine Color (YELLOW) Urine Appearance (CLEAR) Urine pH (5.0-8.0) Ur Specific [place] Urine Protein (NEGATIVE) mg/dL Urine Glucose (UA) (NEGATIVE) mg/dL Urine Ketones (NEGATIVE) mg/dL Urine Occult Blood (NEGATIVE) Urine Nitrite (NEGATIVE) Urine Bilirubin (NEGATIVE) Urine Urobilinogen (0.2) EU/dL Ur Leukocyte Esterase (NEGATIVE) Urine Opiates Screen (NEGATIVE) Ur Buprenorphine Scrn (NEGATIVE) Ur Oxycodone Screen (NEGATIVE) Ur EDDP (Meth Metab) (NEGATIVE) Urine Methadone Screen (NEGATIVE) Ur Barbiturates Screen (NEGATIVE) Ur Tricyclics Screen (NEGATIVE) Ur Phencyclidine Scrn (NEGATIVE) Ur Amphetamine Screen (NEGATIVE) U Methamphetamines Scrn (NEGATIVE) Urine MDMA Screen (NEGATIVE) U Benzodiazepines Scrn (NEGATIVE) U Cocaine Metab Screen (NEGATIVE) U Marijuana (THC) Screen (NEGATIVE) Ethyl Alcohol < 3 (0-3) mg/dL SARS CoV-2 RNA Rapid PRINCESS (NEGATIVE) 08/10/20 08/10/20 08/10/20 Range/Units 16:05 16:05 16:13 WBC (4.0-10.0) x10^3/uL RBC (4.00-5.50) x10^6/uL Hgb (12.0-16.0) g/dL Hct (33.0-47.0) % MCV (78.0-93.0) fL MCH (26.0-32.0) pg MCHC (32.0-36.0) g/dL RDW Coeff of Roderick (10.0-15.0) % Plt Count (130-400) x10^3/uL Neut % (Auto) (50.0-80.0) % Lymph % (Auto) (25.0-50.0) % [place] % (Auto) (2.0-11.0) % Eos % (Auto) (0.0-4.0) % Baso % (Auto) (0.2-1.2) % PT 10.5 (9.5-12.3) SEC INR 1.0 L (2.0-3.5) APTT 27.6 (25.6-32.8) SEC VBG pH POC VBG pH (7.32-7.43) pH VBG pCO2 POC VBG pCO2 (41-51) mmHg VBG pO2 POC VBG pO2 mmHg VBG HCO3 POC VBG HCO3 (22-29) mmol/L VBG Total CO2 VBG O2 Saturation POC Venous O2 Sat % VBG Base Excess (-(2)-3) mmol/L Oxygen Flow Rate POC FiO2 Blood Gas Comments Sodium (136-145) mmol/L Potassium (3.5-5.1) mmol/L Chloride (98-107) mmol/L Carbon Dioxide (21-32) mmol/L POC Venous Total CO2 (23-30) mmol/L Anion Gap (10-20) mmol/L BUN (7-18) mg/dL Creatinine (0.55-1.02) mg/dL Est Cr Clr Drug Dosing Estimated GFR (MDRD) Glucose (74-106) mg/dL POC Glucose 500 H* (74-106) mg/dL Lactic Acid 1.9 (0.4-2.0) mmol/L Calcium (8.5-10.1) mg/dL Corrected Calcium (8.5-10.1) mg/dL Magnesium (1.8-2.4) mg/dL Total Bilirubin (0.2-1.0) mg/dL AST (15-37) U/L ALT (14-59) U/L Alkaline Phosphatase (46-116) U/L Troponin I (<=0.056) ng/mL C-Reactive Protein (<=0.9) mg/dL Total Protein (6.4-8.2) g/dL Albumin (3.4-5.0) g/dL Globulin Albumin/Globulin Ratio Lipase (73-393) U/L Urine Color (YELLOW) Urine Appearance (CLEAR) Urine pH (5.0-8.0) Ur Specific [place] Urine Protein (NEGATIVE) mg/dL Urine Glucose (UA) (NEGATIVE) mg/dL Urine Ketones (NEGATIVE) mg/dL Urine Occult Blood (NEGATIVE) Urine Nitrite (NEGATIVE) Urine Bilirubin (NEGATIVE) Urine Urobilinogen (0.2) EU/dL Ur Leukocyte Esterase (NEGATIVE) Urine Opiates Screen (NEGATIVE) Ur Buprenorphine Scrn (NEGATIVE) Ur Oxycodone Screen (NEGATIVE) Ur EDDP (Meth Metab) (NEGATIVE) Urine Methadone Screen (NEGATIVE) Ur Barbiturates Screen (NEGATIVE) Ur Tricyclics Screen (NEGATIVE) Ur Phencyclidine Scrn (NEGATIVE) Ur Amphetamine Screen (NEGATIVE) U Methamphetamines Scrn (NEGATIVE) Urine MDMA Screen (NEGATIVE) U Benzodiazepines Scrn (NEGATIVE) U Cocaine Metab Screen (NEGATIVE) U Marijuana (THC) Screen (NEGATIVE) Ethyl Alcohol (0-3) mg/dL SARS CoV-2 RNA Rapid PRINCESS (NEGATIVE) 08/10/20 08/10/20 08/10/20 Range/Units 16:35 16:40 16:40 WBC (4.0-10.0) x10^3/uL RBC (4.00-5.50) x10^6/uL Hgb (12.0-16.0) g/dL Hct (33.0-47.0) % MCV (78.0-93.0) fL MCH (26.0-32.0) pg MCHC (32.0-36.0) g/dL RDW Coeff of Roderick (10.0-15.0) % Plt Count (130-400) x10^3/uL Neut % (Auto) (50.0-80.0) % Lymph % (Auto) (25.0-50.0) % [place] % (Auto) (2.0-11.0) % Eos % (Auto) (0.0-4.0) % Baso % (Auto) (0.2-1.2) % PT (9.5-12.3) SEC INR (2.0-3.5) APTT (25.6-32.8) SEC VBG pH Cancelled POC VBG pH (7.32-7.43) pH VBG pCO2 Cancelled POC VBG pCO2 (41-51) mmHg VBG pO2 Cancelled POC VBG pO2 mmHg VBG HCO3 Cancelled POC VBG HCO3 (22-29) mmol/L VBG Total CO2 Cancelled VBG O2 Saturation Cancelled POC Venous O2 Sat % VBG Base Excess Cancelled (-(2)-3) mmol/L Oxygen Flow Rate Cancelled POC FiO2 Blood Gas Comments Cancelled Sodium (136-145) mmol/L Potassium (3.5-5.1) mmol/L Chloride (98-107) mmol/L Carbon Dioxide (21-32) mmol/L POC Venous Total CO2 (23-30) mmol/L Anion Gap (10-20) mmol/L BUN (7-18) mg/dL Creatinine (0.55-1.02) mg/dL Est Cr Clr Drug Dosing Estimated GFR (MDRD) Glucose (74-106) mg/dL POC Glucose (74-106) mg/dL Lactic Acid (0.4-2.0) mmol/L Calcium (8.5-10.1) mg/dL Corrected Calcium (8.5-10.1) mg/dL Magnesium (1.8-2.4) mg/dL Total Bilirubin (0.2-1.0) mg/dL AST (15-37) U/L ALT (14-59) U/L Alkaline Phosphatase (46-116) U/L Troponin I (<=0.056) ng/mL C-Reactive Protein (<=0.9) mg/dL Total Protein (6.4-8.2) g/dL Albumin (3.4-5.0) g/dL Globulin Albumin/Globulin Ratio Lipase (73-393) U/L Urine Color Light yellow (YELLOW) Urine Appearance Clear (CLEAR) Urine pH 5.0 (5.0-8.0) Ur Specific [place] 1.010 Urine Protein Negative (NEGATIVE) mg/dL Urine Glucose (UA) 500 H (NEGATIVE) mg/dL Urine Ketones >=160 H (NEGATIVE) mg/dL Urine Occult Blood Negative (NEGATIVE) Urine Nitrite Negative (NEGATIVE) Urine Bilirubin Negative (NEGATIVE) Urine Urobilinogen 0.2 (0.2) EU/dL Ur Leukocyte Esterase Negative (NEGATIVE) Urine Opiates Screen Negative (NEGATIVE) Ur Buprenorphine Scrn Positive H (NEGATIVE) Ur Oxycodone Screen Negative (NEGATIVE) Ur EDDP (Meth Metab) Negative (NEGATIVE) Urine Methadone Screen Negative (NEGATIVE) Ur Barbiturates Screen Negative (NEGATIVE) Ur Tricyclics Screen Negative (NEGATIVE) Ur Phencyclidine Scrn Negative (NEGATIVE) Ur Amphetamine Screen Positive H (NEGATIVE) U Methamphetamines Scrn Positive H (NEGATIVE) Urine MDMA Screen Negative (NEGATIVE) U Benzodiazepines Scrn Negative (NEGATIVE) U Cocaine Metab Screen Negative (NEGATIVE) U Marijuana (THC) Screen Negative (NEGATIVE) Ethyl Alcohol (0-3) mg/dL SARS CoV-2 RNA Rapid PRINCESS (NEGATIVE) 08/10/20 08/10/20 08/10/20 Range/Units 17:30 17:49 18:47 WBC (4.0-10.0) x10^3/uL RBC (4.00-5.50) x10^6/uL Hgb (12.0-16.0) g/dL Hct (33.0-47.0) % MCV (78.0-93.0) fL MCH (26.0-32.0) pg MCHC (32.0-36.0) g/dL RDW Coeff of Roderick (10.0-15.0) % Plt Count (130-400) x10^3/uL Neut % (Auto) (50.0-80.0) % Lymph % (Auto) (25.0-50.0) % [place] % (Auto) (2.0-11.0) % Eos % (Auto) (0.0-4.0) % Baso % (Auto) (0.2-1.2) % PT (9.5-12.3) SEC INR (2.0-3.5) APTT (25.6-32.8) SEC VBG pH POC VBG pH (7.32-7.43) pH VBG pCO2 POC VBG pCO2 (41-51) mmHg VBG pO2 POC VBG pO2 mmHg VBG HCO3 POC VBG HCO3 (22-29) mmol/L VBG Total CO2 VBG O2 Saturation POC Venous O2 Sat % VBG Base Excess (-(2)-3) mmol/L Oxygen Flow Rate POC FiO2 Blood Gas Comments Sodium (136-145) mmol/L Potassium (3.5-5.1) mmol/L Chloride (98-107) mmol/L Carbon Dioxide (21-32) mmol/L POC Venous Total CO2 (23-30) mmol/L Anion Gap (10-20) mmol/L BUN (7-18) mg/dL Creatinine (0.55-1.02) mg/dL Est Cr Clr Drug Dosing Estimated GFR (MDRD) Glucose (74-106) mg/dL POC Glucose 417 H* 385 H (74-106) mg/dL Lactic Acid (0.4-2.0) mmol/L Calcium (8.5-10.1) mg/dL Corrected Calcium (8.5-10.1) mg/dL Magnesium (1.8-2.4) mg/dL Total Bilirubin (0.2-1.0) mg/dL AST (15-37) U/L ALT (14-59) U/L Alkaline Phosphatase (46-116) U/L Troponin I (<=0.056) ng/mL C-Reactive Protein (<=0.9) mg/dL Total Protein (6.4-8.2) g/dL Albumin (3.4-5.0) g/dL Globulin Albumin/Globulin Ratio Lipase (73-393) U/L Urine Color (YELLOW) Urine Appearance (CLEAR) Urine pH (5.0-8.0) Ur Specific [place] Urine Protein (NEGATIVE) mg/dL Urine Glucose (UA) (NEGATIVE) mg/dL Urine Ketones (NEGATIVE) mg/dL Urine Occult Blood (NEGATIVE) Urine Nitrite (NEGATIVE) Urine Bilirubin (NEGATIVE) Urine Urobilinogen (0.2) EU/dL Ur Leukocyte Esterase (NEGATIVE) Urine Opiates Screen (NEGATIVE) Ur Buprenorphine Scrn (NEGATIVE) Ur Oxycodone Screen (NEGATIVE) Ur EDDP (Meth Metab) (NEGATIVE) Urine Methadone Screen (NEGATIVE) Ur Barbiturates Screen (NEGATIVE) Ur Tricyclics Screen (NEGATIVE) Ur Phencyclidine Scrn (NEGATIVE) Ur Amphetamine Screen (NEGATIVE) U Methamphetamines Scrn (NEGATIVE) Urine MDMA Screen (NEGATIVE) U Benzodiazepines Scrn (NEGATIVE) U Cocaine Metab Screen (NEGATIVE) U Marijuana (THC) Screen (NEGATIVE) Ethyl Alcohol (0-3) mg/dL SARS CoV-2 RNA Rapid PRINCESS Negative (NEGATIVE) Meds: Medications Discontinued Medications Generic Name Dose Route Start Last Admin Trade Name Elfegoq PRN Reason Stop Dose Admin Lactated Ringer's 1,000 mls @ 999 mls/hr 08/10/20 16:21 08/10/20 16:45 Ringers, Lactated IV 08/10/20 17:21 999 mls/hr ONETIME ONE Administration Insulin Human Regular 100 unit 100 mls @ 0 mls/hr 08/10/20 17:00 / Sodium Chloride IV TITRATE VIVIANA Protocol 0.1 UNITS/KG/HR Sodium Chloride 1,000 mls @ 50 mls/hr 08/10/20 17:15 08/10/20 17:29 Normal Saline IV 50 mls/hr ASDIRECTED VIVIANA Administration Potassium Chloride/Sodium Chloride 1,000 mls @ 250 mls/hr 08/10/20 17:30 08/10/20 17:41 Normal Saline With 40 Meq Kcl IV 250 mls/hr ASDIRECTED VIVIANA Administration Insulin Human Regular 100 unit 100 mls @ 7.3 mls/hr 08/10/20 17:28 08/10/20 18:49 / Sodium Chloride IV 0.15 units/kg/hr TITRATE VIVIANA 11 mls/hr Titration Protocol 0.1 UNITS/KG/HR Insulin Human Regular Confirm 08/10/20 17:28 08/10/20 17:42 Humulin R Administered 08/10/20 17:29 Not Given Dose 300 unit .ROUTE .STK-MED ONE Sodium Chloride 10 ml 08/10/20 15:54 Saline Flush FLUSH ASDIRECTED PRN Keep Vein Open - Radiology Interpretation Free Text/Narrative:: Chest x-ray negative per radiology. - Re-Assessments/Exams Free Text/Narrative Re-Assessment/Exam: IV was established she is a very difficult IV start. I was able to access an IV using the ultrasound in the right forearm x1 attempt. LR 1 L wide open. Venous blood gases show a pH of 7.16, PCO2 of 35 a bicarb of 12 and a base excess of -16. Sodium is 127 when corrected for her hyperglycemia is 134. Potassium 4.1 chloride 92 ion gap 27.1, BUN 19 creatinine 1.2. Glucose 550. Lactic acid is negative surprisingly at 1.9. Troponin is less than 0.017. C-reactive protein 0.6. Urinalysis is positive for ketones noninfectious appearing. Urine drug screen is positive for amphetamines methamphetamines and buprenorphine. Alcohol is negative. Covid is negative as well. Patient's airway was monitored closely. There is no signs of airway compromise or difficulty with swallowing secretions there is no labored breathing. She was given a second liter of LR as well. She was started on an insulin drip at 7 units an hour. She was then subsequently started on normal saline with 40 of KCl. This patient is well-known to this facility and has needed multiple ICU admissions due to her very severe DKA in the past. She is quite acidotic. I called and spoke with Dr. Chowdhury at [facility] in [place]. HPI ER COURSE findings and concerns were relayed to him. He is comfortable with this plan and no new orders or directions at this time. Accuchecks every 1 hr. She did have quite a bit of diuresis in the emergency department which was quite surprising of 2400 mils. We continued her IV hydration in route to [facility] in [place] watching her blood sugars closely. Departure - Departure Time of Disposition: 17:39 Disposition: DC/Tfer to [facility] 02 Clinical Impression: DKA (diabetic ketoacidoses) Qualifiers: Diabetes mellitus type: other specified (including YADI) Diabetes mellitus complication detail: with coma Qualified Code(s): E13.11 - Other specified diabetes mellitus with ketoacidosis with coma - Discharge Information Referrals: Yara Lora DO [Primary Care Provider] - Forms: Interfacility Transfer AYANA
[2020-08-10 17:55] VITALS: BP 103/62; PULSE 86
== END 2020-08-10 18:55 | disposition short-term general hospital (02) ==
LOC: VM.ED 15:50
DX: E13.11 Other specified diabetes mellitus with ketoacidosis with coma (principal); Z20.828 Contact with and (suspected) exposure to other viral communicable diseases; I10 Essential (primary) hypertension; E13.40 Other specified diabetes mellitus with diabetic neuropathy, unspecified; F41.9 Anxiety disorder, unspecified; F31.9 Bipolar disorder, unspecified; K21.9 Gastro-esophageal reflux disease without esophagitis; Z79.4 Long term (current) use of insulin; Z90.49 Acquired absence of other specified parts of digestive tract; Z79.899 Other long term (current) drug therapy
CPT/HCPCS: 36415; 51702; 71045; 80053; 80305-QW; 80307; 81003; 82803; 82962; 83605; 83690; 83735; 84484; 85025; 85610; 85730; 86140; 93005; 93010; 99284; 99285-25; J1815-GY; J3480; J7030; J7120; U0002

== ENCOUNTER 2020-08-16 00:42 | Emergency (ER) | payer MEDICAID ==
[2020-08-16 04:41] VITALS: BP 120/70; PULSE 82
== END 2020-08-16 00:55 | disposition home or self-care (01) ==
LOC: VM.ED 00:42
DX: Z53.21 Procedure and treatment not carried out due to patient leaving prior to being seen by health care provider (principal)
CPT/HCPCS: 82962

== ENCOUNTER 2020-08-29 21:22 | Observation (INO) | payer MEDICAID ==
[2020-08-29] MEDS ORDERED: Sodium Chloride 0.9% 10 ML Syringe FLUSH PRN (21:38)
[2020-08-29] MEDS ORDERED: Naloxone 0.4 MG/ML SDV IVPUSH ONE ×2 (21:38→22:14)
[2020-08-29] MEDS ORDERED: Lactated Ringers 1,000 ML IV ONE (21:40)
[2020-08-29 21:57] LABS: BASE EXCESS VENOUS -2 mmol/L ((-2)-3); BICARBONATE,VENOUS 24 mmol/L (22-29); O2 SATURATION VENOUS 98 %; PCO2 VENOUS 41 mmHG (41-51); PH,VENOUS 7.37 pH (7.33-7.43); PO2 VENOUS 103 mmHG
[2020-08-29 22:16] LABS: CHLORIDE,CL 96 mmol/L (98-107); SODIUM,NA 131 mmol/L (136-145)
--- NOTE | 2020-08-29 23:36 | EDM.PDOC ---
ED HPI GENERAL MEDICAL PROBLEM - General Stated Complaint: dec loc Time Seen by Provider: 08/29/20 21:22 Source of Information: Reports: EMS History Limitations: Reports: Altered Mental Status - History of Present Illness INITIAL COMMENTS - FREE TEXT/NARRATIVE: Patient comes emergency department today by ambulance from home with concerns of an elevated blood sugar and decreased level of consciousness. This patient is well-known to myself as well as the emergency department for regular ER visits with altered mental status. Over the past couple of months she has struggled quite highly with recurrent episodes of DKA. She has also had multiple episodes and I have seen her for recreational drug usage as well as overdoses. According to EMS who gave the information that today she had her blood sugar readings at home registering as high. She received 2 doses of 14 units of insulin prior to calling the ambulance. According to EMS she has not been vomiting she has not had any fevers discussing this with her mother prior to bringing her to the emergency department. She has been recently started on Suboxone for her chronic recreational drug abuse. Rest of the HPI is unobtainable as the patient has a altered decreased level of conscious this and is obtunded upon arrival. - Related Data Allergies Allergy/AdvReac Type Severity Reaction Status Date / Time ibuprofen AdvReac Stomach Verified 08/30/20 01:15 Upset Home Meds: Home Meds atorvaSTATin [Lipitor] 10 mg PO BEDTIME 07/09/17 [History] Acetaminophen [Tylenol Extra Strength] 1,000 mg PO TID 04/25/18 [History] Insulin Glarg,Human.Rec.Analog [Lantus] 30 units SUBCUT BEDTIME 09/18/18 [History] Insulin Lispro [Humalog] 4 unit SUBCUT TIDMEALS 09/18/18 [History] PARoxetine [Paxil] 60 mg PO DAILY 02/04/19 [History] Sennosides/Docusate Sodium [Senna-Docusate Sodium Tablet] 2 tab PO BID 02/04/19 [History] glucagon HCL [Glucagon HCl] 1 mg IM ASDIRECTED PRN 02/04/19 [History] amLODIPine [Norvasc] 10 mg PO DAILY 08/17/19 [History] Lidocaine 2% [Xylocaine 2% Jelly] 1 dose TP DAILY PRN 12/24/19 [History] Mirtazapine [Remeron] 15 mg PO BEDTIME 12/24/19 [History] traZODone HCl [Trazodone HCl] 100 - 300 mg PO BEDTIME 12/24/19 [History] Dextrose [Glucose] 16 gm PO ASDIRECTED PRN 04/05/20 [History] Promethazine [Phenergan] 12.5 mg PO QID PRN 04/05/20 [History] clonazePAM [Clonazepam] 1 - 2 tab PO BEDTIME 04/05/20 [History] rOPINIRole [Requip] 0.5 mg PO BEDTIME 04/05/20 [History] risperiDONE 3 mg PO BEDTIME 04/05/20 [History] Buprenorphine/Naloxone [Buprenorphine-Naloxone 8 MG-2 MG] 1 tab SL TID 05/27/20 [History] Diclofenac Sodium [Voltaren 1% Gel] 2 gm TOP BID 05/27/20 [History] Diphenhyd/Lidocaine/Nystatin [Magic Mouthwash] 30 ml SSPIT TID PRN 05/27/20 [History] Gabapentin [Neurontin] 800 mg PO TID 05/27/20 [History] Sucralfate [Carafate] 1 gm PO QID PRN 05/27/20 [History] polyethylene glycoL 3350 [MiraLAX] 1 packet PO DAILY 05/27/20 [History] valACYclovir [Valtrex] 1,000 mg PO TID 05/27/20 [History] Dexlansoprazole [Dexilant] 60 mg PO DAILY 08/30/20 [History] Ketoconazole/Hydrocortisone [Hydrocort 2.5%-Ketoconazole 2%] 2 gram TOP BID [History] buPROPion HCL [Wellbutrin Xl] 150 mg PO DAILY 08/30/20 [History] lamoTRIgine [Lamictal] 100 mg PO DAILY 08/30/20 [History] Past Medical History HEENT History: Reports: Impaired Vision Cardiovascular History: Reports: Blood Clots/VTE/DVT, Hypertension, Other (See Below) Other Cardiovascular History: blood clot R leg Respiratory History: Reports: Other (See Below) Other Respiratory History: hx of acute respiratory failure Gastrointestinal History: Reports: Irritable Bowel Syndrome, PUD Other Gastrointestinal History: acid reflux Genitourinary History: Reports: Urinary Incontinence, Other (See Below) Other Genitourinary History: hx of UTI, hx of acute kidney injury [employer] History: Reports: Musculoskeletal History: Reports: Other (See Below) Other Musculoskeletal History: right foot drop Neurological History: Reports: Neuropathy, Diabetic Psychiatric History: Reports: Anxiety, Bipolar, PTSD, Other (See Below) Other Psychiatric History: chronic narcotic use Endocrine/Metabolic History: Reports: Diabetes, Type I, Other (See Below) Other Endocrine/Metabolic History: 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, hx of ketoacidosis Hematologic History: Reports: Other (See Below) - Infectious Disease History Infectious Disease History: Reports: MRSA - Past Surgical History HEENT Surgical History: Reports: Adenoidectomy, Tonsillectomy, Other (See Below) Other HEENT Surgeries/Procedures: nasal surgery GI Surgical History: Reports: Cholecystectomy, Other (See Below) Other GI Surgeries/Procedures: Esophagus/ stomach repair Musculoskeletal Surgical History: Reports: Hip Replacement, Other (See Below) Other Musculoskeletal Surgeries/Procedures:: hx of carpal tunnel repair Social & Family History - Family History Family Medical History: No Pertinent Family History Other Psychiatric Family History: 2 brothers with substance abuse problems[ Endocrine/Metabolic: Reports: Diabetes, type II - Caffeine Use Caffeine Use: Reports: Coffee Caffeine Use Comment: patient is lethargic to answer questions - Living Situation & Occupation Living situation: Reports: Occupation: Employed (has 2 children which she shares with jerry, mother has been living with her while she convalesces from DKA and mentla health issues. lizeth at [facility]) ED ROS GENERAL - Review of Systems Review Of Systems: Unable To Obtain Reason Not Obtained: Due to obtundation - Physical Exam Exam: See Below Text/Narrative:: Upon arrival the patient makes no spontaneous movements. She does protect her airway. There is no snoring respirations. There is no drooling. There is no labored breathing. She is in somewhat of hygienic arrest. Exam Limited By: Altered Mental Status General Appearance: Obtunded (Painful stimulation she opens her eyes and withdraws from painful stimuli or noxious stimuli. She tells me to stop the painful stimulus and then quickly goes back to decreased level of consciousness or obtunded) Eye Exam: Bilateral Eye: EOMI, PERRL (Is bilaterally are large about a 6 sluggish) Ears: Normal External Exam Nose: Normal Inspection Throat/Mouth: No: Normal Inspection (Oral mucosa is dry) Head Exam: Atraumatic, Normocephalic Neck: Normal Inspection, Supple Respiratory/Chest: No Respiratory Distress, Lungs Clear, Normal Breath Sounds, Chest Non-Tender Cardiovascular: Normal Peripheral Pulses, Regular Rate, Rhythm GI/Abdominal: Normal Bowel Sounds, Soft, Non-Tender (Female) Exam: Deferred Rectal (Female) Exam: Deferred Neuro Exam (Abbreviated): Slow to Respond (Responds slowly to painful stimuli.) Back Exam: Normal Inspection Extremities: Non-Tender, No Pedal Edema, Normal Capillary Refill. No: Normal Inspection (Normal extremities other than her chronic right below the knee amputation which is unremarkable.) Skin Exam: Warm, Dry, Intact, Normal Color, No Rash #1 Interpretation EKG Date: 08/29/20 Time: 23:07 Rhythm: NSR Rate (Beats/Min): 60 [place]: Normal P-Wave: Present QRS: Normal ST-T: Normal QT: Normal Comparison: No Change Course - Vital Signs Last Recorded V/S: Last Vital Signs Temp 97.2 F 08/30/20 00:59 Pulse 55 L 08/30/20 00:59 Resp 18 08/30/20 00:59 BP 104/62 08/30/20 00:59 Pulse Ox 98 08/30/20 00:59 - Orders/Labs/Meds Orders: Active Orders 24 hr Category Date Time Status Admission Status [Patient Status] [ADT] Routine ADT 08/29/20 22:52 Active EKG Documentation Completion [RC] STAT Care 08/29/20 21:37 Active Head wo Cont [CT] Stat Exams 08/29/20 22:50 Taken AMMONIA [REF] Stat Lab 08/29/20 21:30 Received SALICYLATE [REF] Stat Lab 08/29/20 21:30 Received Sodium Chloride 0.9% [Saline Flush] Med 08/29/20 21:38 Active 10 ml FLUSH ASDIRECTED PRN Peripheral IV Insertion Adult [OM.PC] Stat Oth 08/29/20 21:37 Ordered Medication Orders Atorvastatin Calcium (Lipitor) 10 mg PO BEDTIME VIVIANA Bupropion HCl (Wellbutrin Xl) 150 mg PO DAILY VIVIANA Dextrose/Water (Dextrose 50% In Water) 50 ml IV ASDIRECTED PRN PRN Reason: Hypoglycemia Dextrose/Water (Dextrose 50% In Water) 50 ml IV ASDIRECTED PRN PRN Reason: Hypoglycemia Glucagon (Glucagen) 1 mg IM ASDIRECTED PRN PRN Reason: Hypoglycemia Glucagon (Glucagen) 1 mg IM ASDIRECTED PRN PRN Reason: Hypoglycemia Lactated Ringer's (Ringers, Lactated) 1,000 mls @ 125 mls/hr IV ASDIRECTED VIVIANA Insulin Glargine (Lantus) 30 unit SUBCUT BEDTIME VIVIANA Insulin Glargine (Lantus) 30 unit SUBCUT DAILY VIVIANA Insulin Human Lispro (Humalog) 0 unit SUBCUT TIDMEALS VIVIANA; Protocol Mirtazapine (Remeron) 15 mg PO BEDTIME VIVIANA Non-Formulary Medication (Dexlansoprazole [Dexilant]) 60 mg PO DAILY VIVIANA Non-Formulary Medication (Lamotrigine [Lamictal]) 100 mg PO DAILY VIVIANA Ondansetron HCl (Zofran) 4 mg IV Q6H PRN PRN Reason: Nausea/Vomiting Paroxetine HCl (Paxil) 60 mg PO DAILY VIVIANA Polyethylene Glycol (Miralax) gm PO DAILY VIVIANA Risperidone (Risperidal) 3 mg PO BEDTIME VIVIANA Ropinirole HCl (Requip) 0.5 mg PO BEDTIME VIVIANA Senna/Docusate Sodium (Senna Plus) 2 tab PO BID VIVIANA Sodium Chloride (Saline Flush) 10 ml FLUSH ASDIRECTED PRN PRN Reason: Keep Vein Open Sucralfate (Carafate) 1 gm PO QID PRN PRN Reason: Gas Labs: Laboratory Tests 08/29/20 08/29/20 08/29/20 Range/Units 21:30 21:30 21:30 WBC 5.5 (4.0-10.0) x10^3/uL RBC 4.16 (4.00-5.50) x10^6/uL Hgb 11.5 L (12.0-16.0) g/dL Hct 33.9 (33.0-47.0) % MCV 81.5 D (78.0-93.0) fL MCH 27.6 (26.0-32.0) pg MCHC 33.9 (32.0-36.0) g/dL RDW Coeff of Roderick 13.8 (10.0-15.0) % Plt Count 351 (130-400) x10^3/uL Neut % (Auto) 62.3 (50.0-80.0) % Lymph % (Auto) 27.5 (25.0-50.0) % [place] % (Auto) 6.1 (2.0-11.0) % Eos % (Auto) 2.6 (0.0-4.0) % Baso % (Auto) 1.5 H (0.2-1.2) % VBG pH 7.37 (7.33-7.43) pH VBG pCO2 41 (41-51) mmHG VBG pO2 103 mmHG VBG HCO3 24 (22-29) mmol/L VBG Total CO2 TNP VBG O2 Saturation 98 % VBG Base Excess -2 ((-2)-3) mmol/L Sodium 131 L (136-145) mmol/L Potassium 4.0 (3.5-5.1) mmol/L Chloride 96 L (98-107) mmol/L Carbon Dioxide 25 D (21-32) mmol/L Anion Gap 14.0 (10-20) mmol/L BUN 13 (7-18) mg/dL Creatinine 0.8 (0.55-1.02) mg/dL Est Cr Clr Drug Dosing TNP Estimated GFR (MDRD) > 60 Glucose 546 H* (74-106) mg/dL Lactic Acid (0.4-2.0) mmol/L Calcium 8.6 (8.5-10.1) mg/dL Corrected Calcium 8.92 (8.5-10.1) mg/dL Magnesium 1.9 (1.8-2.4) mg/dL Total Bilirubin 0.4 (0.2-1.0) mg/dL AST 19 (15-37) U/L ALT 29 (14-59) U/L Alkaline Phosphatase 134 H (46-116) U/L Troponin I < 0.017 (<=0.056) ng/mL C-Reactive Protein 0.7 (<=0.9) mg/dL Total Protein 7.1 (6.4-8.2) g/dL Albumin 3.6 (3.4-5.0) g/dL Globulin 3.5 Albumin/Globulin Ratio 1.03 TSH, Ultra Sensitive (0.358-3.74) uIU/mL Urine Color (YELLOW) Urine Appearance (CLEAR) Urine pH (5.0-8.0) Ur Specific [place] Urine Protein (NEGATIVE) mg/dL Urine Glucose (UA) (NEGATIVE) mg/dL Urine Ketones (NEGATIVE) mg/dL Urine Occult Blood (NEGATIVE) Urine Nitrite (NEGATIVE) Urine Bilirubin (NEGATIVE) Urine Urobilinogen (0.2) EU/dL Ur Leukocyte Esterase (NEGATIVE) Urine HCG, Qual (NEGATIVE) Urine Opiates Screen (NEGATIVE) Ur Buprenorphine Scrn (NEGATIVE) Ur Oxycodone Screen (NEGATIVE) Ur EDDP (Meth Metab) (NEGATIVE) Urine Methadone Screen (NEGATIVE) Acetaminophen (10-30) ug/ml Ur Barbiturates Screen (NEGATIVE) Ur Tricyclics Screen (NEGATIVE) Ur Phencyclidine Scrn (NEGATIVE) Ur Amphetamine Screen (NEGATIVE) U Methamphetamines Scrn (NEGATIVE) Urine MDMA Screen (NEGATIVE) U Benzodiazepines Scrn (NEGATIVE) U Cocaine Metab Screen (NEGATIVE) U Marijuana (THC) Screen (NEGATIVE) Ethyl Alcohol 4 H (0-3) mg/dL SARS CoV-2 RNA Rapid PRINCESS (NEGATIVE) 08/29/20 08/29/20 08/29/20 Range/Units 21:30 21:30 21:30 WBC (4.0-10.0) x10^3/uL RBC (4.00-5.50) x10^6/uL Hgb (12.0-16.0) g/dL Hct (33.0-47.0) % MCV (78.0-93.0) fL MCH (26.0-32.0) pg MCHC (32.0-36.0) g/dL RDW Coeff of Roderick (10.0-15.0) % Plt Count (130-400) x10^3/uL Neut % (Auto) (50.0-80.0) % Lymph % (Auto) (25.0-50.0) % [place] % (Auto) (2.0-11.0) % Eos % (Auto) (0.0-4.0) % Baso % (Auto) (0.2-1.2) % VBG pH (7.33-7.43) pH VBG pCO2 (41-51) mmHG VBG pO2 mmHG VBG HCO3 (22-29) mmol/L VBG Total CO2 VBG O2 Saturation % VBG Base Excess ((-2)-3) mmol/L Sodium (136-145) mmol/L Potassium (3.5-5.1) mmol/L Chloride (98-107) mmol/L Carbon Dioxide (21-32) mmol/L Anion Gap (10-20) mmol/L BUN (7-18) mg/dL Creatinine (0.55-1.02) mg/dL Est Cr Clr Drug Dosing Estimated GFR (MDRD) Glucose (74-106) mg/dL Lactic Acid 1.2 (0.4-2.0) mmol/L Calcium (8.5-10.1) mg/dL Corrected Calcium (8.5-10.1) mg/dL Magnesium (1.8-2.4) mg/dL Total Bilirubin (0.2-1.0) mg/dL AST (15-37) U/L ALT (14-59) U/L Alkaline Phosphatase (46-116) U/L Troponin I (<=0.056) ng/mL C-Reactive Protein (<=0.9) mg/dL Total Protein (6.4-8.2) g/dL Albumin (3.4-5.0) g/dL Globulin Albumin/Globulin Ratio TSH, Ultra Sensitive 0.403 (0.358-3.74) uIU/mL Urine Color (YELLOW) Urine Appearance (CLEAR) Urine pH (5.0-8.0) Ur Specific [place] Urine Protein (NEGATIVE) mg/dL Urine Glucose (UA) (NEGATIVE) mg/dL Urine Ketones (NEGATIVE) mg/dL Urine Occult Blood (NEGATIVE) Urine Nitrite (NEGATIVE) Urine Bilirubin (NEGATIVE) Urine Urobilinogen (0.2) EU/dL Ur Leukocyte Esterase (NEGATIVE) Urine HCG, Qual (NEGATIVE) Urine Opiates Screen (NEGATIVE) Ur Buprenorphine Scrn (NEGATIVE) Ur Oxycodone Screen (NEGATIVE) Ur EDDP (Meth Metab) (NEGATIVE) Urine Methadone Screen (NEGATIVE) Acetaminophen 0 L (10-30) ug/ml Ur Barbiturates Screen (NEGATIVE) Ur Tricyclics Screen (NEGATIVE) Ur Phencyclidine Scrn (NEGATIVE) Ur Amphetamine Screen (NEGATIVE) U Methamphetamines Scrn (NEGATIVE) Urine MDMA Screen (NEGATIVE) U Benzodiazepines Scrn (NEGATIVE) U Cocaine Metab Screen (NEGATIVE) U Marijuana (THC) Screen (NEGATIVE) Ethyl Alcohol (0-3) mg/dL SARS CoV-2 RNA Rapid PRINCESS (NEGATIVE) 08/29/20 08/29/20 08/29/20 Range/Units 23:15 23:30 23:30 WBC (4.0-10.0) x10^3/uL RBC (4.00-5.50) x10^6/uL Hgb (12.0-16.0) g/dL Hct (33.0-47.0) % MCV (78.0-93.0) fL MCH (26.0-32.0) pg MCHC (32.0-36.0) g/dL RDW Coeff of Roderick (10.0-15.0) % Plt Count (130-400) x10^3/uL Neut % (Auto) (50.0-80.0) % Lymph % (Auto) (25.0-50.0) % [place] % (Auto) (2.0-11.0) % Eos % (Auto) (0.0-4.0) % Baso % (Auto) (0.2-1.2) % VBG pH (7.33-7.43) pH VBG pCO2 (41-51) mmHG VBG pO2 mmHG VBG HCO3 (22-29) mmol/L VBG Total CO2 VBG O2 Saturation % VBG Base Excess ((-2)-3) mmol/L Sodium (136-145) mmol/L Potassium (3.5-5.1) mmol/L Chloride (98-107) mmol/L Carbon Dioxide (21-32) mmol/L Anion Gap (10-20) mmol/L BUN (7-18) mg/dL Creatinine (0.55-1.02) mg/dL Est Cr Clr Drug Dosing Estimated GFR (MDRD) Glucose (74-106) mg/dL Lactic Acid (0.4-2.0) mmol/L Calcium (8.5-10.1) mg/dL Corrected Calcium (8.5-10.1) mg/dL Magnesium (1.8-2.4) mg/dL Total Bilirubin (0.2-1.0) mg/dL AST (15-37) U/L ALT (14-59) U/L Alkaline Phosphatase (46-116) U/L Troponin I (<=0.056) ng/mL C-Reactive Protein (<=0.9) mg/dL Total Protein (6.4-8.2) g/dL Albumin (3.4-5.0) g/dL Globulin Albumin/Globulin Ratio TSH, Ultra Sensitive (0.358-3.74) uIU/mL Urine Color Yellow (YELLOW) Urine Appearance Cloudy H (CLEAR) Urine pH 6.5 (5.0-8.0) Ur Specific [place] 1.010 Urine Protein Negative (NEGATIVE) mg/dL Urine Glucose (UA) >=1000 H (NEGATIVE) mg/dL Urine Ketones Negative (NEGATIVE) mg/dL Urine Occult Blood Negative (NEGATIVE) Urine Nitrite Negative (NEGATIVE) Urine Bilirubin Negative (NEGATIVE) Urine Urobilinogen 0.2 (0.2) EU/dL Ur Leukocyte Esterase Negative (NEGATIVE) Urine HCG, Qual Negative (NEGATIVE) Urine Opiates Screen (NEGATIVE) Ur Buprenorphine Scrn (NEGATIVE) Ur Oxycodone Screen (NEGATIVE) Ur EDDP (Meth Metab) (NEGATIVE) Urine Methadone Screen (NEGATIVE) Acetaminophen (10-30) ug/ml Ur Barbiturates Screen (NEGATIVE) Ur Tricyclics Screen (NEGATIVE) Ur Phencyclidine Scrn (NEGATIVE) Ur Amphetamine Screen (NEGATIVE) U Methamphetamines Scrn (NEGATIVE) Urine MDMA Screen (NEGATIVE) U Benzodiazepines Scrn (NEGATIVE) U Cocaine Metab Screen (NEGATIVE) U Marijuana (THC) Screen (NEGATIVE) Ethyl Alcohol (0-3) mg/dL SARS CoV-2 RNA Rapid PRINCESS Negative (NEGATIVE) 08/29/20 Range/Units 23:30 WBC (4.0-10.0) x10^3/uL RBC (4.00-5.50) x10^6/uL Hgb (12.0-16.0) g/dL Hct (33.0-47.0) % MCV (78.0-93.0) fL MCH (26.0-32.0) pg MCHC (32.0-36.0) g/dL RDW Coeff of Roderick (10.0-15.0) % Plt Count (130-400) x10^3/uL Neut % (Auto) (50.0-80.0) % Lymph % (Auto) (25.0-50.0) % [place] % (Auto) (2.0-11.0) % Eos % (Auto) (0.0-4.0) % Baso % (Auto) (0.2-1.2) % VBG pH (7.33-7.43) pH VBG pCO2 (41-51) mmHG VBG pO2 mmHG VBG HCO3 (22-29) mmol/L VBG Total CO2 VBG O2 Saturation % VBG Base Excess ((-2)-3) mmol/L Sodium (136-145) mmol/L Potassium (3.5-5.1) mmol/L Chloride (98-107) mmol/L Carbon Dioxide (21-32) mmol/L Anion Gap (10-20) mmol/L BUN (7-18) mg/dL Creatinine (0.55-1.02) mg/dL Est Cr Clr Drug Dosing Estimated GFR (MDRD) Glucose (74-106) mg/dL Lactic Acid (0.4-2.0) mmol/L Calcium (8.5-10.1) mg/dL Corrected Calcium (8.5-10.1) mg/dL Magnesium (1.8-2.4) mg/dL Total Bilirubin (0.2-1.0) mg/dL AST (15-37) U/L ALT (14-59) U/L Alkaline Phosphatase (46-116) U/L Troponin I (<=0.056) ng/mL C-Reactive Protein (<=0.9) mg/dL Total Protein (6.4-8.2) g/dL Albumin (3.4-5.0) g/dL Globulin Albumin/Globulin Ratio TSH, Ultra Sensitive (0.358-3.74) uIU/mL Urine Color (YELLOW) Urine Appearance (CLEAR) Urine pH (5.0-8.0) Ur Specific [place] Urine Protein (NEGATIVE) mg/dL Urine Glucose (UA) (NEGATIVE) mg/dL Urine Ketones (NEGATIVE) mg/dL Urine Occult Blood (NEGATIVE) Urine Nitrite (NEGATIVE) Urine Bilirubin (NEGATIVE) Urine Urobilinogen (0.2) EU/dL Ur Leukocyte Esterase (NEGATIVE) Urine HCG, Qual (NEGATIVE) Urine Opiates Screen Negative (NEGATIVE) Ur Buprenorphine Scrn Negative (NEGATIVE) Ur Oxycodone Screen Negative (NEGATIVE) Ur EDDP (Meth Metab) Negative (NEGATIVE) Urine Methadone Screen Negative (NEGATIVE) Acetaminophen (10-30) ug/ml Ur Barbiturates Screen Negative (NEGATIVE) Ur Tricyclics Screen Negative (NEGATIVE) Ur Phencyclidine Scrn Negative (NEGATIVE) Ur Amphetamine Screen Negative (NEGATIVE) U Methamphetamines Scrn Negative (NEGATIVE) Urine MDMA Screen Negative (NEGATIVE) U Benzodiazepines Scrn Negative (NEGATIVE) U Cocaine Metab Screen Negative (NEGATIVE) U Marijuana (THC) Screen Negative (NEGATIVE) Ethyl Alcohol (0-3) mg/dL SARS CoV-2 RNA Rapid PRINCESS (NEGATIVE) Meds: Medications Generic Name Dose Route Start Last Admin Trade Name Freq PRN Reason Stop Dose Admin Atorvastatin Calcium 10 mg 08/30/20 20:00 Lipitor PO BEDTIME VIVIANA Bupropion HCl 150 mg 08/30/20 08:00 Wellbutrin Xl PO DAILY VIVIANA Dextrose/Water 50 ml 08/30/20 01:19 Dextrose 50% In Water IV ASDIRECTED PRN Hypoglycemia Dextrose/Water 50 ml 08/30/20 01:28 Dextrose 50% In Water IV ASDIRECTED PRN Hypoglycemia Glucagon 1 mg 08/30/20 01:19 Glucagen IM ASDIRECTED PRN Hypoglycemia Glucagon 1 mg 08/30/20 01:28 Glucagen IM ASDIRECTED PRN Hypoglycemia Lactated Ringer's 1,000 mls @ 125 mls/hr 08/30/20 01:45 Ringers, Lactated IV ASDIRECTED [facility] Insulin Glargine 30 unit 08/30/20 20:00 Lantus SUBCUT BEDTIME [facility] Insulin Glargine 30 unit 08/30/20 01:30 Lantus SUBCUT DAILY [facility] Insulin Human Lispro 0 unit 08/30/20 08:00 Humalog SUBCUT TIDMEALS [facility] Protocol Mirtazapine 15 mg 08/30/20 20:00 Remeron PO BEDTIME [facility] Non-Formulary Medication 60 mg 08/30/20 08:00 Dexlansoprazole [Dexilant] PO DAILY [facility] Non-Formulary Medication 100 mg 08/30/20 08:00 Lamotrigine [Lamictal] PO DAILY [facility] Ondansetron HCl 4 mg 08/30/20 01:32 Zofran IV Q6H PRN Nausea/Vomiting Paroxetine HCl 60 mg 08/30/20 08:00 Paxil PO DAILY [facility] Polyethylene Glycol gm 08/30/20 08:00 Miralax PO DAILY [facility] Risperidone 3 mg 08/30/20 20:00 Risperidal PO BEDTIME VIVIANA Ropinirole HCl 0.5 mg 08/30/20 20:00 Requip PO BEDTIME VIVIANA Senna/Docusate Sodium 2 tab 08/30/20 08:00 Senna Plus PO BID VIVIANA Sodium Chloride 10 ml 08/29/20 21:38 Saline Flush FLUSH ASDIRECTED PRN Keep Vein Open Sucralfate 1 gm 08/30/20 01:19 Carafate PO QID PRN Gas Discontinued Medications Generic Name Dose Route Start Last Admin Trade Name Jana PRN Reason Stop Dose Admin Lactated Ringer's 1,000 mls @ 999 mls/hr 08/29/20 21:40 08/29/20 21:45 Ringers, Lactated IV 08/29/20 22:40 999 mls/hr ONETIME ONE Administration Naloxone HCl 0.4 mg 08/29/20 21:38 08/29/20 21:46 Narcan IVPUSH 08/29/20 21:39 0.4 mg ONETIME ONE Administration Naloxone HCl 0.8 mg 08/29/20 22:14 08/29/20 22:19 Narcan IVPUSH 08/29/20 22:15 0.8 mg ONETIME ONE Administration - Radiology Interpretation Free Text/Narrative:: CT of the head completed due to the decreased level of consciousness and obtundation no acute findings per radiology. - Re-Assessments/Exams Free Text/Narrative Re-Assessment/Exam: 08/29/20 The patient was given 20 units of her fast acting insulin prior to calling the ambulance. Her blood sugar read high on the glucometer by the ambulance. Labs are drawn. EKG shows normal sinus rhythm without ST elevation or depression when reviewed extemporaneously by myself. LR 1 L wide open. 2 doses of Narcan 0.4 and 0.8 were given IV push without any change in the patient's obtundation. Protecting her airway her oxygen saturation is appropriate. 08/29/20 23:46 Venous blood gas shows a pH of 7.37, PCO2 of 41, bicarb 24 base excess -2. She is clearly not hypercapnic nor is she in diabetic ketoacidosis. Her CBC is rather unremarkable. Her panel shows a sodium of 131 and a chloride of 96 anion gap is 14 creatinine normal and a BUN. Her glucose is 546 although she does not appear to be in DKA by her blood gases. Troponin is negative. Alcohol is 4. Blood sugar at 1140 aprox 350. Her loc has not changed. She is maintaining her airway appropriately. She is not hypoxic. There is no labored breathing. Her level of consciousness has not changed. T of the head shows no acute findings. This is most likely some type of substance misuse that is causing her obtundation as she has presented with this multiple other times. I do not see any other cause for her acute obtundation. Her urine drug screen is surprisingly negative. Ammonia is pending although she has no history of cirrhosis or liver failure. We will admit this patient under observation to watch her level of consciousness. Again this is most likely what I feel is some type of substance ingestion as she has had this many times in the past. We will watch her blood sugars closely. She is not in any evidence of DKA at this time. I did discuss this with the patient's mother as well over the phone who is with her most of the day and unsure of if she had ingested any recreational substances although she has faltered recently on her sobriety. I will repeat a urine drug screen in the morning as she may have just taken something that had not gone to her urine yet. It is rather interesting that her urine is negative although she is on chronic benzos as well as Suboxone. Departure - Departure Time of Disposition: 00:01 Disposition: Refer to Observation Clinical Impression: Decreased level of consciousness DKA, type 1 Qualifiers: Diabetes mellitus complication detail: without coma Qualified Code(s): E10.10 - Type 1 diabetes mellitus with ketoacidosis without coma - Discharge Information Sepsis Event Note (ED) - Focused Exam Vital Signs: Vital Signs Temp Pulse Resp BP Pulse Ox 08/29/20 23:45 61 16 115/67 97 08/29/20 23:30 64 16 124/62 97 08/29/20 23:00 63 16 126/72 99 08/29/20 22:35 64 16 112/68 97 08/29/20 22:05 71 16 118/65 99 08/29/20 21:45 72 16 120/68 99 08/29/20 21:25 98.3 F 68 16 113/71 98 - Problem List & Annotations (1) Decreased level of consciousness SNOMED Code(s): 470633317 Code(s): R41.89 - OTH SYMPTOMS AND SIGNS W COGNITIVE FUNCTIONS AND AWARENESS Status: Acute Current Visit: Yes (2) Drug abuse and dependence SNOMED Code(s): 0092498 Code(s): F19.20 - OTHER PSYCHOACTIVE SUBSTANCE DEPENDENCE, UNCOMPLICATED Status: Acute Current Visit: No (3) Hyperglycemia due to type 1 diabetes mellitus SNOMED Code(s): 982330247551993, 291418717002922 Code(s): E10.65 - TYPE 1 DIABETES MELLITUS WITH HYPERGLYCEMIA Status: Acute Current Visit: No (4) Opiate addiction SNOMED Code(s): 29292725 Code(s): F11.20 - OPIOID DEPENDENCE, UNCOMPLICATED Status: Chronic Priority: Low Current Visit: No Annotation/Comment:: - As above, social work to meet with patient today to move her appointment scheduled for Neymar. - She plans to continue the fentanyl patch but not to take any oxycodone. - Will assist with symptoms of withdrawal as able. Qualifiers: Substance use status: in withdrawal Qualified Code(s): F11.23 - Opioid dependence with withdrawal - Problem List Review Problem List Initiated/Reviewed/Updated: Yes - My Orders Last 24 Hours: My Active Orders 08/29/20 21:30 AMMONIA [REF] Stat SALICYLATE [REF] Stat 08/29/20 21:37 EKG Documentation Completion [RC] STAT Peripheral IV Insertion Adult [OM.PC] Stat 08/29/20 21:38 Sodium Chloride 0.9% [Saline Flush] 10 ml FLUSH ASDIRECTED PRN 08/29/20 22:50 Head wo Cont [CT] Stat 08/29/20 22:52 Admission Status [Patient Status] [ADT] Routine - Assessment/Plan Last 24 Hours: My Active Orders 08/29/20 21:30 AMMONIA [REF] Stat SALICYLATE [REF] Stat 08/29/20 21:37 EKG Documentation Completion [RC] STAT Peripheral IV Insertion Adult [OM.PC] Stat 08/29/20 21:38 Sodium Chloride 0.9% [Saline Flush] 10 ml FLUSH ASDIRECTED PRN 08/29/20 22:50 Head wo Cont [CT] Stat 08/29/20 22:52 Admission Status [Patient Status] [ADT] Routine Assessment:: A/P Admit observation under my service. #1: Dec LOC. CT scan was normal. Urine drug screen was negative which is interesting as she is on chronic benzodiazepines as well as Suboxone. This patient has a longstanding history of known substance abuse misuse and overdoses. This is most likely the cause of her acute obtundation or decreased level of consciousness tonight. We will admit her into the hospital under observation with continuous telemetry as well as pulse oximetry. We will hold her Klonopin as well as her gabapentin as these may be causative agents for her obtundation tonight. We will continue her other psychotropics such as Risperdal Paxil Lamictal Requip and Remeron. As well as her Wellbutrin. Although she did not receive any of her night medications of many of these sedative medications prior to her hospitalization. We will observe her closely. I will also repeat a urine drug screen in the morning as it is concerning that her u rine drug screen in the emergency department was negative although she is on chronic Suboxone as well as clonazepam. Her obtundation she will be able to take her oral pills at this time anyways. #2: DM 1 with Hyperglycemia. He does not have any evidence of DKA at this time. Her pH is normal. She has no ketones in her urine. We will continue her Lantus 30 units subcutaneously at bedtime. We will put her on sliding scale level 2 for her hyperglycemia management. Blood sugars 4 times a day. Repeat labs daily. Although I will hold her meal time insulin until she is alert enough to eat as well. Will supplement with IV dextrose if blood sugars are starting to drop. #3 Hx of Substance abuse misuse and opiate abuse. I will continue her Suboxone while she is in the hospital. Social work for consult for substance abuse management. We will repeat her urine drug screen in the morning. VTE: Short stay TEDs at this time. Sepsis: No signs of active infection. daily labs to include lactic acid. Code Level 1. Telemetry Cont pulse oximetry. Diabetic diet as tolerated once loc is appropriate. LR 125mls/hr Care under my serv ce until the morning when report will be given to Dr. Forrest Lora or Klaus Carbone PA-C depends on the patients condition in the morning.
[2020-08-29 23:48] LABS: BARBITURATE SCREEN,URINE NEGATIVE (NEGATIVE); BENZODIAZEPINES SCREEN,URINE NEGATIVE (NEGATIVE); EDDP,URINE SCREEN NEGATIVE (NEGATIVE); METHAMPHETAMINE SCREEN, URINE NEGATIVE (NEGATIVE); TCA SCREEN,URINE NEGATIVE (NEGATIVE); THC SCREEN,URINE 50 NG/ML NEGATIVE (NEGATIVE)
[2020-08-30] MEDS ORDERED: Sucralfate 1 GM Tab PO PRN (01:19)
[2020-08-30] MEDS ORDERED: 50% Dextrose in Water 50 ML Syringe IV PRN ×2 (01:19→01:28)
[2020-08-30] MEDS ORDERED: Glucagon,Human Recombinant 1 MG Vial IM PRN ×2 (01:19→01:28)
[2020-08-30] MEDS ORDERED: Ondansetron 4 MG/2 ML SDV IV PRN (01:32)
[2020-08-30] MEDS ORDERED: Lactated Ringers 1,000 ML IV SCH (01:45)
[2020-08-30] MEDS: Insulin Glarg,Human.Rec.Analog 100 Unit/ML SUBCUT SCH ×2 (02:00→09:23)
[2020-08-30 05:24] VITALS: BP 106/69; PULSE 62
[2020-08-30] MEDS ORDERED: Omeprazole 20 MG Cap.CR PO SCH (07:00)
[2020-08-30] MEDS ORDERED: Dextrose 5%-0.9% NaCl 1,000 ML IV SCH (07:15)
[2020-08-30] MEDS ORDERED: buPROPion 150 MG Tab.ER PO SCH (08:00)
[2020-08-30] MEDS ORDERED: PARoxetine 20 MG Tab PO SCH (08:00)
[2020-08-30] MEDS ORDERED: lamoTRIgine 100 MG Tab PO SCH (08:00)
[2020-08-30] MEDS ORDERED: Insulin Lispro 100 Units/ML 3 ML Vial SUBCUT SCH (08:00)
[2020-08-30] MEDS ORDERED: Polyethylene Glycol 3350 Powder 17 GM Packet PO SCH (08:00)
--- NOTE | 2020-08-30 08:22 | PCM.DCSUM1 ---
Discharge Summary - Discharge Data Discharge Date: 08/30/20 Discharge Disposition: Home, Self-Care 01 Condition: Good - Referral to Home Health Primary Care Physician: Yara Lora DO - Discharge Diagnosis/Problem(s) (1) Decreased level of consciousness SNOMED Code(s): 525495166 ICD Code: R41.89 - OTH SYMPTOMS AND SIGNS W COGNITIVE FUNCTIONS AND AWARENESS Status: Acute Current Visit: Yes (2) Drug abuse and dependence SNOMED Code(s): 1113036 ICD Code: F19.20 - OTHER PSYCHOACTIVE SUBSTANCE DEPENDENCE, UNCOMPLICATED Status: Acute Current Visit: No (3) Hyperglycemia due to type 1 diabetes mellitus SNOMED Code(s): 398599282141804, 521486002202425 ICD Code: E10.65 - TYPE 1 DIABETES MELLITUS WITH HYPERGLYCEMIA Status: Acute Current Visit: No (4) Opiate addiction SNOMED Code(s): 93185003 ICD Code: F11.20 - OPIOID DEPENDENCE, UNCOMPLICATED Status: Chronic Priority: Low Current Visit: No Qualifiers: Substance use status: in withdrawal Qualified Code(s): F11.23 - Opioid dependence with withdrawal - Patient Summary/Data Consults: Consultations 08/30/20 01:32 Consult to Case Management/Senior Project Manager Engineering [CONS] Routine - Patient Instructions Diet: Regular Diet as Tolerated, No Alcoholic Beverages Other/Special Instructions: Continue his previous home therapies. Check your blood sugar on a regular basis throughout the day with your continuous glucose monitoring system and adjust accordingly. Do not take your medications other than how they are prescribed. Do not use any recreational substances. Continue with your outpatient substance treatment plans. Recheck in the clinic in a week. - Discharge Plan Home Medications: Home Meds atorvaSTATin [Lipitor] 10 mg PO BEDTIME 07/09/17 [History] Acetaminophen [Tylenol Extra Strength] 1,000 mg PO TID 04/25/18 [History] Insulin Glarg,Human.Rec.Analog [Lantus] 30 units SUBCUT BEDTIME 09/18/18 [History] Insulin Lispro [Humalog] 4 unit SUBCUT TIDMEALS 09/18/18 [History] PARoxetine [Paxil] 60 mg PO DAILY 02/04/19 [History] Sennosides/Docusate Sodium [Senna-Docusate Sodium Tablet] 2 tab PO BID 02/04/19 [History] glucagon HCL [Glucagon HCl] 1 mg IM ASDIRECTED PRN 02/04/19 [History] amLODIPine [Norvasc] 10 mg PO DAILY 08/17/19 [History] Lidocaine 2% [Xylocaine 2% Jelly] 1 dose TP DAILY PRN 12/24/19 [History] Mirtazapine [Remeron] 15 mg PO BEDTIME 12/24/19 [History] traZODone HCl [Trazodone HCl] 100 - 300 mg PO BEDTIME 12/24/19 [History] Dextrose [Glucose] 16 gm PO ASDIRECTED PRN 04/05/20 [History] Promethazine [Phenergan] 12.5 mg PO QID PRN 04/05/20 [History] clonazePAM [Clonazepam] 1 - 2 tab PO BEDTIME 04/05/20 [History] rOPINIRole [Requip] 0.5 mg PO BEDTIME 04/05/20 [History] risperiDONE 3 mg PO BEDTIME 04/05/20 [History] Buprenorphine/Naloxone [Buprenorphine-Naloxone 8 MG-2 MG] 1 tab SL TID 05/27/20 [History] Diclofenac Sodium [Voltaren 1% Gel] 2 gm TOP BID 05/27/20 [History] Diphenhyd/Lidocaine/Nystatin [Magic Mouthwash] 30 ml SSPIT TID PRN 05/27/20 [History] Gabapentin [Neurontin] 800 mg PO TID 05/27/20 [History] Sucralfate [Carafate] 1 gm PO QID PRN 05/27/20 [History] polyethylene glycoL 3350 [MiraLAX] 1 packet PO DAILY 05/27/20 [History] valACYclovir [Valtrex] 1,000 mg PO TID 05/27/20 [History] Dexlansoprazole [Dexilant] 60 mg PO DAILY 08/30/20 [History] Insulin Glarg,Human.Rec.Analog [Lantus] 30 unit SUBCUT DAILY ml 08/30/20 [Rx] Ketoconazole/Hydrocortisone [Hydrocort 2.5%-Ketoconazole 2%] 2 gram TOP BID 08/30/20 [History] buPROPion HCL [Wellbutrin Xl] 150 mg PO DAILY 08/30/20 [History] lamoTRIgine [Lamictal] 100 mg PO DAILY 08/30/20 [History] Forms: ED Department Discharge Referrals: Yara Lora DO [Primary Care Provider] - - Discharge Summary/Plan Comment DC Time >30 min.: Yes - Patient Data Vitals - Most Recent: Last Vital Signs Temp 97.2 F 08/30/20 05:23 Pulse 62 08/30/20 05:23 Resp 16 08/30/20 05:23 BP 106/69 08/30/20 05:23 Pulse Ox 95 08/30/20 07:08 Weight - Most Recent: 165 lb 3.2 oz Lab Results - Last 24 hrs: Laboratory Results - last 24 hr 08/29/20 08/29/20 08/29/20 Range/Units 21:30 21:30 21:30 WBC 5.5 (4.0-10.0) x10^3/uL RBC 4.16 (4.00-5.50) x10^6/uL Hgb 11.5 L (12.0-16.0) g/dL Hct 33.9 (33.0-47.0) % MCV 81.5 D (78.0-93.0) fL MCH 27.6 (26.0-32.0) pg MCHC 33.9 (32.0-36.0) g/dL RDW Coeff of Roderick 13.8 (10.0-15.0) % Plt Count 351 (130-400) x10^3/uL Neut % (Auto) 62.3 (50.0-80.0) % Lymph % (Auto) 27.5 (25.0-50.0) % Aiken % (Auto) 6.1 (2.0-11.0) % Eos % (Auto) 2.6 (0.0-4.0) % Baso % (Auto) 1.5 H (0.2-1.2) % VBG pH 7.37 (7.33-7.43) pH VBG pCO2 41 (41-51) mmHG VBG pO2 103 mmHG VBG HCO3 24 (22-29) mmol/L VBG Total CO2 TNP VBG O2 Saturation 98 % VBG Base Excess -2 ((-2)-3) mmol/L Sodium 131 L (136-145) mmol/L Potassium 4.0 (3.5-5.1) mmol/L Chloride 96 L (98-107) mmol/L Carbon Dioxide 25 D (21-32) mmol/L Anion Gap 14.0 (10-20) mmol/L BUN 13 (7-18) mg/dL Creatinine 0.8 (0.55-1.02) mg/dL Est Cr Clr Drug Dosing TNP Estimated GFR (MDRD) > 60 Glucose 546 H* (74-106) mg/dL POC Glucose (74-106) mg/dL Lactic Acid (0.4-2.0) mmol/L Calcium 8.6 (8.5-10.1) mg/dL Corrected Calcium 8.92 (8.5-10.1) mg/dL Magnesium 1.9 (1.8-2.4) mg/dL Total Bilirubin 0.4 (0.2-1.0) mg/dL AST 19 (15-37) U/L ALT 29 (14-59) U/L Alkaline Phosphatase 134 H (46-116) U/L Troponin I < 0.017 (<=0.056) ng/mL C-Reactive Protein 0.7 (<=0.9) mg/dL Total Protein 7.1 (6.4-8.2) g/dL Albumin 3.6 (3.4-5.0) g/dL Globulin 3.5 Albumin/Globulin Ratio 1.03 TSH, Ultra Sensitive (0.358-3.74) uIU/mL Urine Color (YELLOW) Urine Appearance (CLEAR) Urine pH (5.0-8.0) Ur Specific Sophia Urine Protein (NEGATIVE) mg/dL Urine Glucose (UA) (NEGATIVE) mg/dL Urine Ketones (NEGATIVE) mg/dL Urine Occult Blood (NEGATIVE) Urine Nitrite (NEGATIVE) Urine Bilirubin (NEGATIVE) Urine Urobilinogen (0.2) EU/dL Ur Leukocyte Esterase (NEGATIVE) Urine HCG, Qual (NEGATIVE) Urine Opiates Screen (NEGATIVE) Ur Buprenorphine Scrn (NEGATIVE) Ur Oxycodone Screen (NEGATIVE) Ur EDDP (Meth Metab) (NEGATIVE) Urine Methadone Screen (NEGATIVE) Acetaminophen (10-30) ug/ml Ur Barbiturates Screen (NEGATIVE) Ur Tricyclics Screen (NEGATIVE) Ur Phencyclidine Scrn (NEGATIVE) Ur Amphetamine Screen (NEGATIVE) U Methamphetamines Scrn (NEGATIVE) Urine MDMA Screen (NEGATIVE) U Benzodiazepines Scrn (NEGATIVE) U Cocaine Metab Screen (NEGATIVE) U Marijuana (THC) Screen (NEGATIVE) Ethyl Alcohol 4 H (0-3) mg/dL SARS CoV-2 RNA Rapid PRINCESS (NEGATIVE) 08/29/20 08/29/20 08/29/20 Range/Units 21:30 21:30 21:30 WBC (4.0-10.0) x10^3/uL RBC (4.00-5.50) x10^6/uL Hgb (12.0-16.0) g/dL Hct (33.0-47.0) % MCV (78.0-93.0) fL MCH (26.0-32.0) pg MCHC (32.0-36.0) g/dL RDW Coeff of Roderick (10.0-15.0) % Plt Count (130-400) x10^3/uL Neut % (Auto) (50.0-80.0) % Lymph % (Auto) (25.0-50.0) % Aiken % (Auto) (2.0-11.0) % Eos % (Auto) (0.0-4.0) % Baso % (Auto) (0.2-1.2) % VBG pH (7.33-7.43) pH VBG pCO2 (41-51) mmHG VBG pO2 mmHG VBG HCO3 (22-29) mmol/L VBG Total CO2 VBG O2 Saturation % VBG Base Excess ((-2)-3) mmol/L Sodium (136-145) mmol/L Potassium (3.5-5.1) mmol/L Chloride (98-107) mmol/L Carbon Dioxide (21-32) mmol/L Anion Gap (10-20) mmol/L BUN (7-18) mg/dL Creatinine (0.55-1.02) mg/dL Est Cr Clr Drug Dosing Estimated GFR (MDRD) Glucose (74-106) mg/dL POC Glucose (74-106) mg/dL Lactic Acid 1.2 (0.4-2.0) mmol/L Calcium (8.5-10.1) mg/dL Corrected Calcium (8.5-10.1) mg/dL Magnesium (1.8-2.4) mg/dL Total Bilirubin (0.2-1.0) mg/dL AST (15-37) U/L ALT (14-59) U/L Alkaline Phosphatase (46-116) U/L Troponin I (<=0.056) ng/mL C-Reactive Protein (<=0.9) mg/dL Total Protein (6.4-8.2) g/dL Albumin (3.4-5.0) g/dL Globulin Albumin/Globulin Ratio TSH, Ultra Sensitive 0.403 (0.358-3.74) uIU/mL Urine Color (YELLOW) Urine Appearance (CLEAR) Urine pH (5.0-8.0) Ur Specific Sophia Urine Protein (NEGATIVE) mg/dL Urine Glucose (UA) (NEGATIVE) mg/dL Urine Ketones (NEGATIVE) mg/dL Urine Occult Blood (NEGATIVE) Urine Nitrite (NEGATIVE) Urine Bilirubin (NEGATIVE) Urine Urobilinogen (0.2) EU/dL Ur Leukocyte Esterase (NEGATIVE) Urine HCG, Qual (NEGATIVE) Urine Opiates Screen (NEGATIVE) Ur Buprenorphine Scrn (NEGATIVE) Ur Oxycodone Screen (NEGATIVE) Ur EDDP (Meth Metab) (NEGATIVE) Urine Methadone Screen (NEGATIVE) Acetaminophen 0 L (10-30) ug/ml Ur Barbiturates Screen (NEGATIVE) Ur Tricyclics Screen (NEGATIVE) Ur Phencyclidine Scrn (NEGATIVE) Ur Amphetamine Screen (NEGATIVE) U Methamphetamines Scrn (NEGATIVE) Urine MDMA Screen (NEGATIVE) U Benzodiazepines Scrn (NEGATIVE) U Cocaine Metab Screen (NEGATIVE) U Marijuana (THC) Screen (NEGATIVE) Ethyl Alcohol (0-3) mg/dL SARS CoV-2 RNA Rapid PRINCESS (NEGATIVE) 08/29/20 08/29/20 08/29/20 Range/Units 23:15 23:30 23:30 WBC (4.0-10.0) x10^3/uL RBC (4.00-5.50) x10^6/uL Hgb (12.0-16.0) g/dL Hct (33.0-47.0) % MCV (78.0-93.0) fL MCH (26.0-32.0) pg MCHC (32.0-36.0) g/dL RDW Coeff of Roderick (10.0-15.0) % Plt Count (130-400) x10^3/uL Neut % (Auto) (50.0-80.0) % Lymph % (Auto) (25.0-50.0) % Aiken % (Auto) (2.0-11.0) % Eos % (Auto) (0.0-4.0) % Baso % (Auto) (0.2-1.2) % VBG pH (7.33-7.43) pH VBG pCO2 (41-51) mmHG VBG pO2 mmHG VBG HCO3 (22-29) mmol/L VBG Total CO2 VBG O2 Saturation % VBG Base Excess ((-2)-3) mmol/L Sodium (136-145) mmol/L Potassium (3.5-5.1) mmol/L Chloride (98-107) mmol/L Carbon Dioxide (21-32) mmol/L Anion Gap (10-20) mmol/L BUN (7-18) mg/dL Creatinine (0.55-1.02) mg/dL Est Cr Clr Drug Dosing Estimated GFR (MDRD) Glucose (74-106) mg/dL POC Glucose (74-106) mg/dL Lactic Acid (0.4-2.0) mmol/L Calcium (8.5-10.1) mg/dL Corrected Calcium (8.5-10.1) mg/dL Magnesium (1.8-2.4) mg/dL Total Bilirubin (0.2-1.0) mg/dL AST (15-37) U/L ALT (14-59) U/L Alkaline Phosphatase (46-116) U/L Troponin I (<=0.056) ng/mL C-Reactive Protein (<=0.9) mg/dL Total Protein (6.4-8.2) g/dL Albumin (3.4-5.0) g/dL Globulin Albumin/Globulin Ratio TSH, Ultra Sensitive (0.358-3.74) uIU/mL Urine Color Yellow (YELLOW) Urine Appearance Cloudy H (CLEAR) Urine pH 6.5 (5.0-8.0) Ur Specific Sophia 1.010 Urine Protein Negative (NEGATIVE) mg/dL Urine Glucose (UA) >=1000 H (NEGATIVE) mg/dL Urine Ketones Negative (NEGATIVE) mg/dL Urine Occult Blood Negative (NEGATIVE) Urine Nitrite Negative (NEGATIVE) Urine Bilirubin Negative (NEGATIVE) Urine Urobilinogen 0.2 (0.2) EU/dL Ur Leukocyte Esterase Negative (NEGATIVE) Urine HCG, Qual Negative (NEGATIVE) Urine Opiates Screen (NEGATIVE) Ur Buprenorphine Scrn (NEGATIVE) Ur Oxycodone Screen (NEGATIVE) Ur EDDP (Meth Metab) (NEGATIVE) Urine Methadone Screen (NEGATIVE) Acetaminophen (10-30) ug/ml Ur Barbiturates Screen (NEGATIVE) Ur Tricyclics Screen (NEGATIVE) Ur Phencyclidine Scrn (NEGATIVE) Ur Amphetamine Screen (NEGATIVE) U Methamphetamines Scrn (NEGATIVE) Urine MDMA Screen (NEGATIVE) U Benzodiazepines Scrn (NEGATIVE) U Cocaine Metab Screen (NEGATIVE) U Marijuana (THC) Screen (NEGATIVE) Ethyl Alcohol (0-3) mg/dL SARS CoV-2 RNA Rapid PRINCESS Negative (NEGATIVE) 08/29/20 08/29/20 08/30/20 Range/Units 23:30 23:40 01:27 WBC (4.0-10.0) x10^3/uL RBC (4.00-5.50) x10^6/uL Hgb (12.0-16.0) g/dL Hct (33.0-47.0) % MCV (78.0-93.0) fL MCH (26.0-32.0) pg MCHC (32.0-36.0) g/dL RDW Coeff of Roderick (10.0-15.0) % Plt Count (130-400) x10^3/uL Neut % (Auto) (50.0-80.0) % Lymph % (Auto) (25.0-50.0) % Aiken % (Auto) (2.0-11.0) % Eos % (Auto) (0.0-4.0) % Baso % (Auto) (0.2-1.2) % VBG pH (7.33-7.43) pH VBG pCO2 (41-51) mmHG VBG pO2 mmHG VBG HCO3 (22-29) mmol/L VBG Total CO2 VBG O2 Saturation % VBG Base Excess ((-2)-3) mmol/L Sodium (136-145) mmol/L Potassium (3.5-5.1) mmol/L Chloride (98-107) mmol/L Carbon Dioxide (21-32) mmol/L Anion Gap (10-20) mmol/L BUN (7-18) mg/dL Creatinine (0.55-1.02) mg/dL Est Cr Clr Drug Dosing Estimated GFR (MDRD) Glucose (74-106) mg/dL POC Glucose 395 H 330 H (74-106) mg/dL Lactic Acid (0.4-2.0) mmol/L Calcium (8.5-10.1) mg/dL Corrected Calcium (8.5-10.1) mg/dL Magnesium (1.8-2.4) mg/dL Total Bilirubin (0.2-1.0) mg/dL AST (15-37) U/L ALT (14-59) U/L Alkaline Phosphatase (46-116) U/L Troponin I (<=0.056) ng/mL C-Reactive Protein (<=0.9) mg/dL Total Protein (6.4-8.2) g/dL Albumin (3.4-5.0) g/dL Globulin Albumin/Globulin Ratio TSH, Ultra Sensitive (0.358-3.74) uIU/mL Urine Color (YELLOW) Urine Appearance (CLEAR) Urine pH (5.0-8.0) Ur Specific Sophia Urine Protein (NEGATIVE) mg/dL Urine Glucose (UA) (NEGATIVE) mg/dL Urine Ketones (NEGATIVE) mg/dL Urine Occult Blood (NEGATIVE) Urine Nitrite (NEGATIVE) Urine Bilirubin (NEGATIVE) Urine Urobilinogen (0.2) EU/dL Ur Leukocyte Esterase (NEGATIVE) Urine HCG, Qual (NEGATIVE) Urine Opiates Screen Negative (NEGATIVE) Ur Buprenorphine Scrn Negative (NEGATIVE) Ur Oxycodone Screen Negative (NEGATIVE) Ur EDDP (Meth Metab) Negative (NEGATIVE) Urine Methadone Screen Negative (NEGATIVE) Acetaminophen (10-30) ug/ml Ur Barbiturates Screen Negative (NEGATIVE) Ur Tricyclics Screen Negative (NEGATIVE) Ur Phencyclidine Scrn Negative (NEGATIVE) Ur Amphetamine Screen Negative (NEGATIVE) U Methamphetamines Scrn Negative (NEGATIVE) Urine MDMA Screen Negative (NEGATIVE) U Benzodiazepines Scrn Negative (NEGATIVE) U Cocaine Metab Screen Negative (NEGATIVE) U Marijuana (THC) Screen Negative (NEGATIVE) Ethyl Alcohol (0-3) mg/dL SARS CoV-2 RNA Rapid PRINCESS (NEGATIVE) 08/30/20 08/30/20 Range/Units 03:43 06:12 WBC (4.0-10.0) x10^3/uL RBC (4.00-5.50) x10^6/uL Hgb (12.0-16.0) g/dL Hct (33.0-47.0) % MCV (78.0-93.0) fL MCH (26.0-32.0) pg MCHC (32.0-36.0) g/dL RDW Coeff of Roderick (10.0-15.0) % Plt Count (130-400) x10^3/uL Neut % (Auto) (50.0-80.0) % Lymph % (Auto) (25.0-50.0) % Aiken % (Auto) (2.0-11.0) % Eos % (Auto) (0.0-4.0) % Baso % (Auto) (0.2-1.2) % VBG pH (7.33-7.43) pH VBG pCO2 (41-51) mmHG VBG pO2 mmHG VBG HCO3 (22-29) mmol/L VBG Total CO2 VBG O2 Saturation % VBG Base Excess ((-2)-3) mmol/L Sodium (136-145) mmol/L Potassium (3.5-5.1) mmol/L Chloride (98-107) mmol/L Carbon Dioxide (21-32) mmol/L Anion Gap (10-20) mmol/L BUN (7-18) mg/dL Creatinine (0.55-1.02) mg/dL Est Cr Clr Drug Dosing Estimated GFR (MDRD) Glucose (74-106) mg/dL POC Glucose 256 H 179 H (74-106) mg/dL Lactic Acid (0.4-2.0) mmol/L Calcium (8.5-10.1) mg/dL Corrected Calcium (8.5-10.1) mg/dL Magnesium (1.8-2.4) mg/dL Total Bilirubin (0.2-1.0) mg/dL AST (15-37) U/L ALT (14-59) U/L Alkaline Phosphatase (46-116) U/L Troponin I (<=0.056) ng/mL C-Reactive Protein (<=0.9) mg/dL Total Protein (6.4-8.2) g/dL Albumin (3.4-5.0) g/dL Globulin Albumin/Globulin Ratio TSH, Ultra Sensitive (0.358-3.74) uIU/mL Urine Color (YELLOW) Urine Appearance (CLEAR) Urine pH (5.0-8.0) Ur Specific Sophia Urine Protein (NEGATIVE) mg/dL Urine Glucose (UA) (NEGATIVE) mg/dL Urine Ketones (NEGATIVE) mg/dL Urine Occult Blood (NEGATIVE) Urine Nitrite (NEGATIVE) Urine Bilirubin (NEGATIVE) Urine Urobilinogen (0.2) EU/dL Ur Leukocyte Esterase (NEGATIVE) Urine HCG, Qual (NEGATIVE) Urine Opiates Screen (NEGATIVE) Ur Buprenorphine Scrn (NEGATIVE) Ur Oxycodone Screen (NEGATIVE) Ur EDDP (Meth Metab) (NEGATIVE) Urine Methadone Screen (NEGATIVE) Acetaminophen (10-30) ug/ml Ur Barbiturates Screen (NEGATIVE) Ur Tricyclics Screen (NEGATIVE) Ur Phencyclidine Scrn (NEGATIVE) Ur Amphetamine Screen (NEGATIVE) U Methamphetamines Scrn (NEGATIVE) Urine MDMA Screen (NEGATIVE) U Benzodiazepines Scrn (NEGATIVE) U Cocaine Metab Screen (NEGATIVE) U Marijuana (THC) Screen (NEGATIVE) Ethyl Alcohol (0-3) mg/dL SARS CoV-2 RNA Rapid PRINCESS (NEGATIVE) Med Orders - Current: Current Medications Atorvastatin Calcium (Lipitor) 10 mg PO BEDTIME VIVIANA Bupropion HCl (Wellbutrin Xl) 150 mg PO DAILY [facility] Dextrose/Water (Dextrose 50% In Water) 50 ml IV ASDIRECTED PRN PRN Reason: Hypoglycemia Dextrose/Water (Dextrose 50% In Water) 50 ml IV ASDIRECTED PRN PRN Reason: Hypoglycemia Glucagon (Glucagen) 1 mg IM ASDIRECTED PRN PRN Reason: Hypoglycemia Glucagon (Glucagen) 1 mg IM ASDIRECTED PRN PRN Reason: Hypoglycemia Dextrose/Sodium Chloride (Dextrose 5%-Normal Saline) 1,000 mls @ 125 mls/hr IV ASDIRECTED [facility] Insulin Glargine (Lantus) 30 unit SUBCUT DAILY [facility] Last Admin: 08/30/20 02:00 Dose: 30 units Documented by: Insulin Human Lispro (Humalog) 0 unit SUBCUT TIDMEALS [facility]; Protocol Lamotrigine (Lamotrigine) 100 mg PO DAILY [facility] Mirtazapine (Remeron) 15 mg PO BEDTIME [facility]IVIANA Omeprazole (Omeprazole) 40 mg PO ACBREAKFAST [facility] Last Admin: 08/30/20 07:39 Dose: Not Given Documented by: Ondansetron HCl (Zofran) 4 mg IV Q6H PRN PRN Reason: Nausea/Vomiting Paroxetine HCl (Paxil) 60 mg PO DAILY [facility] Polyethylene Glycol (Miralax) 17 gm PO DAILY [facility] Risperidone (Risperidal) 3 mg PO BEDTIME [facility] Ropinirole HCl (Requip) 0.5 mg PO BEDTIME [facility] Senna/Docusate Sodium (Senna Plus) 2 tab PO BID [facility] Sodium Chloride (Saline Flush) 10 ml FLUSH ASDIRECTED PRN PRN Reason: Keep Vein Open Sucralfate (Carafate) 1 gm PO QID PRN PRN Reason: Gas Discontinued Medications Lactated Ringer's (Ringers, Lactated) 1,000 mls @ 999 mls/hr IV ONETIME ONE Stop: 08/29/20 22:40 Last Admin: 08/29/20 21:45 Dose: 999 mls/hr Documented by: Lactated Ringer's (Ringers, Lactated) 1,000 mls @ 125 mls/hr IV ASDIRECTED [facility] Insulin Glargine (Lantus) 30 unit SUBCUT BEDTIME [facility] Naloxone HCl (Narcan) 0.4 mg IVPUSH ONETIME ONE Stop: 08/29/20 21:39 Last Admin: 08/29/20 21:46 Dose: 0.4 mg Documented by: Naloxone HCl (Narcan) 0.8 mg IVPUSH ONETIME ONE Stop: 08/29/20 22:15 Last Admin: 08/29/20 22:19 Dose: 0.8 mg Documented by:
--- NOTE | 2020-08-30 09:09 | CT ---
[id number] CT/CT Head WO IV EXAM: CT Head WO IV CLINICAL DATA: DECREASED LEVEL OF CONSCIOUSNESS COMPARISON STUDY: None FINDINGS: No intracranial hemorrhage, extra-axial fluid collection, mass, or acute ischemia. Soft tissues are unremarkable. Paranasal sinuses and mastoid air cells are clear. IMPRESSION: No acute intracranial findings. Ras Wu DO 08/30/20 0908 Thank you for allowing us to participate in the care of your patient.
[2020-08-30] MEDS ORDERED: Insulin Glarg,Human.Rec.Analog 100 Unit/ML SUBCUT SCH (20:00)
[2020-08-30] MEDS ORDERED: atorvaSTATin 10 MG Tab PO SCH (20:00)
[2020-08-30] MEDS ORDERED: rOPINIRole 0.5 MG Tab PO SCH (20:00)
[2020-08-30] MEDS ORDERED: risperiDONE 1 MG Tab PO SCH (20:00)
[2020-08-30] MEDS ORDERED: Mirtazapine 15 MG Tab PO SCH (20:00)
== END 2020-08-30 10:35 | disposition home or self-care (01) ==
LOC: VM.ED 21:22 → VM.MS 08-30 00:43
PROVIDERS: ADMIT Nurse Practitioner Family; ATTEND Nurse Practitioner Family
DX: R41.89 Other symptoms and signs involving cognitive functions and awareness (principal); E10.65 Type 1 diabetes mellitus with hyperglycemia; F11.20 Opioid dependence, uncomplicated; E10.10 Type 1 diabetes mellitus with ketoacidosis without coma; E10.40 Type 1 diabetes mellitus with diabetic neuropathy, unspecified; F19.20 Other psychoactive substance dependence, uncomplicated; I10 Essential (primary) hypertension; K21.9 Gastro-esophageal reflux disease without esophagitis; J96.00 Acute respiratory failure, unspecified whether with hypoxia or hypercapnia; F41.9 Anxiety disorder, unspecified; Z79.4 Long term (current) use of insulin; Z79.899 Other long term (current) drug therapy; Z90.89 Acquired absence of other organs; Z98.890 Other specified postprocedural states; Z20.828 Contact with and (suspected) exposure to other viral communicable diseases
CPT/HCPCS: 70450; 80053; 80305-QW; 80307; 81003; 81025; 82140; 82803; 82962; 83605; 83735; 84443; 84484; 85025; 86140; 93005; 96374; 96376; 99285-25; A9270-GY; G0378; J1815-GY; J2310; J7120; U0002

== ENCOUNTER 2020-09-09 03:08 | Emergency (ER) | payer MEDICAID ==
[2020-09-09] MEDS ORDERED: Etomidate 2 MG/ML 10 ML SDV IVPUSH ONE (03:20)
[2020-09-09] MEDS ORDERED: Sodium Chloride 0.9% 1,000 ML IV ONE ×2 (03:20→04:49)
[2020-09-09] MEDS ORDERED: Succinylcholine 200 MG/10 ML MDV ONE (03:23)
[2020-09-09] MEDS ORDERED: Rocuronium 50 MG/5 ML Vial ONE (03:23)
--- NOTE | 2020-09-09 04:03 | EDM.PDOC ---
ED HPI GENERAL MEDICAL PROBLEM - General Chief Complaint: General Stated Complaint: unresponsive hypoglycemia Time Seen by Provider: 09/09/20 03:10 Source of Information: Reports: EMS History Limitations: Reports: Other (unresponsive ). Denies: No Limitations - History of Present Illness INITIAL COMMENTS - FREE TEXT/NARRATIVE: Patient was brought to the ER via EMS after mother called them to the scene secondary to hypoglycemia and unresponsiveness upon arrival EMS patient was sitting in the wheelchair. Blood sugar was checked and was 42 1 amp of D50 was given which went to 190 and she was transported to the ER all vital signs were stable in route Duration: Minutes: - Related Data Allergies Allergy/AdvReac Type Severity Reaction Status Date / Time ibuprofen AdvReac Stomach Verified 08/30/20 01:15 Upset Home Meds: Home Meds atorvaSTATin [Lipitor] 10 mg PO BEDTIME 07/09/17 [History] Acetaminophen [Tylenol Extra Strength] 1,000 mg PO TID 04/25/18 [History] Insulin Glarg,Human.Rec.Analog [Lantus] 30 units SUBCUT BEDTIME 09/18/18 [History] Insulin Lispro [Humalog] 4 unit SUBCUT TIDMEALS 09/18/18 [History] PARoxetine [Paxil] 60 mg PO DAILY 02/04/19 [History] Sennosides/Docusate Sodium [Senna-Docusate Sodium Tablet] 2 tab PO BID 02/04/19 [History] glucagon HCL [Glucagon HCl] 1 mg IM ASDIRECTED PRN 02/04/19 [History] amLODIPine [Norvasc] 10 mg PO DAILY 08/17/19 [History] Lidocaine 2% [Xylocaine 2% Jelly] 1 dose TP DAILY PRN 12/24/19 [History] Mirtazapine [Remeron] 15 mg PO BEDTIME 12/24/19 [History] traZODone HCl [Trazodone HCl] 100 - 300 mg PO BEDTIME 12/24/19 [History] Dextrose [Glucose] 16 gm PO ASDIRECTED PRN 04/05/20 [History] Promethazine [Phenergan] 12.5 mg PO QID PRN 04/05/20 [History] clonazePAM [Clonazepam] 1 - 2 tab PO BEDTIME 04/05/20 [History] rOPINIRole [Requip] 0.5 mg PO BEDTIME 04/05/20 [History] risperiDONE 3 mg PO BEDTIME 04/05/20 [History] Buprenorphine/Naloxone [Buprenorphine-Naloxone 8 MG-2 MG] 1 tab SL TID 05/27/20 [History] Diclofenac Sodium [Voltaren 1% Gel] 2 gm TOP BID 05/27/20 [History] Diphenhyd/Lidocaine/Nystatin [Magic Mouthwash] 30 ml SSPIT TID PRN 05/27/20 [History] Gabapentin [Neurontin] 800 mg PO TID 05/27/20 [History] Sucralfate [Carafate] 1 gm PO QID PRN 05/27/20 [History] polyethylene glycoL 3350 [MiraLAX] 1 packet PO DAILY 05/27/20 [History] valACYclovir [Valtrex] 1,000 mg PO TID 05/27/20 [History] Dexlansoprazole [Dexilant] 60 mg PO DAILY 08/30/20 [History] Insulin Glarg,Human.Rec.Analog [Lantus] 30 unit SUBCUT DAILY ml 08/30/20 [Rx] Ketoconazole/Hydrocortisone [Hydrocort 2.5%-Ketoconazole 2%] 2 gram TOP BID 08/30/20 [History] buPROPion HCL [Wellbutrin Xl] 150 mg PO DAILY 08/30/20 [History] lamoTRIgine [Lamictal] 100 mg PO DAILY 08/30/20 [History] Past Medical History HEENT History: Reports: Impaired Vision Cardiovascular History: Reports: Blood Clots/VTE/DVT, Hypertension, Other (See Below) Other Cardiovascular History: blood clot R leg Respiratory History: Reports: Other (See Below) Other Respiratory History: hx of acute respiratory failure Gastrointestinal History: Reports: Irritable Bowel Syndrome, PUD Other Gastrointestinal History: acid reflux Genitourinary History: Reports: Urinary Incontinence, Other (See Below) Other Genitourinary History: hx of UTI, hx of acute kidney injury [employer] History: Reports: Musculoskeletal History: Reports: Other (See Below) Other Musculoskeletal History: right foot drop Neurological History: Reports: Neuropathy, Diabetic Psychiatric History: Reports: Anxiety, Bipolar, PTSD, Other (See Below) Other Psychiatric History: chronic narcotic use Endocrine/Metabolic History: Reports: Diabetes, Type I, Other (See Below) Other Endocrine/Metabolic History: 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, hx of ketoacidosis Hematologic History: Reports: Other (See Below) - Infectious Disease History Infectious Disease History: Reports: MRSA - Past Surgical History HEENT Surgical History: Reports: Adenoidectomy, Tonsillectomy, Other (See Below) Other HEENT Surgeries/Procedures: nasal surgery GI Surgical History: Reports: Cholecystectomy, Other (See Below) Other GI Surgeries/Procedures: Esophagus/ stomach repair Musculoskeletal Surgical History: Reports: Hip Replacement, Other (See Below) Other Musculoskeletal Surgeries/Procedures:: hx of carpal tunnel repair Social & Family History - Family History Family Medical History: No Pertinent Family History Other Psychiatric Family History: 2 brothers with substance abuse problems[ Endocrine/Metabolic: Reports: Diabetes, type II - Caffeine Use Caffeine Use: Reports: Coffee Caffeine Use Comment: patient is lethargic to answer questions - Living Situation & Occupation Living situation: Reports: Occupation: Employed (has 2 children which she shares with jerry, mother has been living with her while she convalesces from DKA and mentla health issues. lizeth at [facility]) ED ROS GENERAL - Review of Systems Review Of Systems: Unable To Obtain Reason Not Obtained: pt unresponsive some ROS per mom via ems Constitutional: Reports: No Symptoms Respiratory: Reports: No Symptoms Cardiovascular: Reports: No Symptoms Endocrine: Reports: High Glucose, Low Glucose GI/Abdominal: Reports: No Symptoms Hematologic/Lymphatic: Reports: No Symptoms ED EXAM, GENERAL - Physical Exam Exam: See Below Exam Limited By: Other (unresponsive) Eye Exam: Bilateral Eye: Other (pin point pupils blat ) Ears: Normal External Exam, Normal Canal, Normal TMs Throat/Mouth: Normal Inspection, Normal Lips, Other (no gag reflex ). No: No Airway Compromise Head: Atraumatic, Normocephalic Neck: Normal Inspection, Supple Respiratory/Chest: No Respiratory Distress, No Accessory Muscle Use, Other (snoring respirations ) Cardiovascular: Normal Peripheral Pulses, Regular Rate, Rhythm, No Edema, No Gallop, No JVD, No Murmur GI/Abdominal: Normal Bowel Sounds, Soft, No Organomegaly, No Distention Extremities: Normal Inspection, No Pedal Edema Neurological: No: Alert, Oriented, CN II-XII Intact Skin Exam: Warm, Dry, Intact, Normal Color, No Rash Course - Vital Signs Text/Narrative:: Patient was intubated secondary to no gag reflex and snoring respirations Labs ordered CBC BMP lactic acid chest x-ray UDS Covid Unresponsiveness multiple attempts were tried to obtain peripheral IVs including 2 EJ's all were unsuccessful and IO was started in the left tibia by EMS Patient was prepped with nonrebreather 15 L/min all vital signs within normal limit patient was given 10 mg of etomidate 70 mg succinylcholine she was intubated with a 7.0 ET tube first attempt with good visualization through the cords good mist in the tube equal rise and fall and equal breath sounds bilateral chest x-ray confirmed tube in good placement with intact NG tube in the stomach Called and spoke with [facility] in regards to transfer Dr. Duncan is willing to accept at 0 400 Patient remained stable and on the vent no issues Critical care time of 1 hour COVID Neg UDS positive for tricyclic's amphetamine methamphetamine MDMA marijuana Last Recorded V/S: Last Vital Signs Temp 36.0 C L 09/09/20 04:38 Pulse 66 09/09/20 04:38 Resp 14 09/09/20 04:38 BP 115/71 09/09/20 04:38 Pulse Ox 100 09/09/20 04:38 - Orders/Labs/Meds Orders: Active Orders 24 hr Category Date Time Status Chest 1V Frontal [CR] Stat Exams 09/09/20 03:47 Taken Sodium Chloride 0.9% [Normal Saline] 1,000 ml Med 09/09/20 04:49 Active IV ONETIME Medication Orders Sodium Chloride (Normal Saline) 1,000 mls @ 999 mls/hr IV ONETIME ONE Stop: 09/09/20 05:49 Labs: Laboratory Tests 09/09/20 09/09/20 09/09/20 Range/Units 03:11 03:42 03:42 WBC 4.7 (4.0-10.0) x10^3/uL RBC 4.05 (4.00-5.50) x10^6/uL Hgb 11.4 L (12.0-16.0) g/dL Hct 34.1 (33.0-47.0) % MCV 84.2 (78.0-93.0) fL MCH 28.1 (26.0-32.0) pg MCHC 33.4 (32.0-36.0) g/dL RDW Coeff of Roderick 13.3 (10.0-15.0) % Plt Count 233 D (130-400) x10^3/uL Neut % (Auto) 56.4 (50.0-80.0) % Lymph % (Auto) 32.6 (25.0-50.0) % Hernando % (Auto) 5.4 (2.0-11.0) % Eos % (Auto) 4.7 H (0.0-4.0) % Baso % (Auto) 0.9 (0.2-1.2) % Sodium 140 (136-145) mmol/L Potassium 3.9 (3.5-5.1) mmol/L Chloride 106 (98-107) mmol/L Carbon Dioxide 28 (21-32) mmol/L Anion Gap 9.9 L (10-20) mmol/L BUN 17 (7-18) mg/dL Creatinine 0.8 (0.55-1.02) mg/dL Est Cr Clr Drug Dosing TNP Estimated GFR (MDRD) > 60 Glucose 133 H (74-106) mg/dL POC Glucose 165 H (74-106) mg/dL Lactic Acid (0.4-2.0) mmol/L Calcium 8.4 L (8.5-10.1) mg/dL Urine Opiates Screen (NEGATIVE) Ur Buprenorphine Scrn (NEGATIVE) Ur Oxycodone Screen (NEGATIVE) Ur EDDP (Meth Metab) (NEGATIVE) Urine Methadone Screen (NEGATIVE) Ur Barbiturates Screen (NEGATIVE) Ur Tricyclics Screen (NEGATIVE) Ur Phencyclidine Scrn (NEGATIVE) Ur Amphetamine Screen (NEGATIVE) U Methamphetamines Scrn (NEGATIVE) Urine MDMA Screen (NEGATIVE) U Benzodiazepines Scrn (NEGATIVE) U Cocaine Metab Screen (NEGATIVE) U Marijuana (THC) Screen (NEGATIVE) SARS CoV-2 RNA Rapid PRINCESS (NEGATIVE) 09/09/20 09/09/20 09/09/20 Range/Units 03:42 03:51 04:25 WBC (4.0-10.0) x10^3/uL RBC (4.00-5.50) x10^6/uL Hgb (12.0-16.0) g/dL Hct (33.0-47.0) % MCV (78.0-93.0) fL MCH (26.0-32.0) pg MCHC (32.0-36.0) g/dL RDW Coeff of Roderick (10.0-15.0) % Plt Count (130-400) x10^3/uL Neut % (Auto) (50.0-80.0) % Lymph % (Auto) (25.0-50.0) % Hernando % (Auto) (2.0-11.0) % Eos % (Auto) (0.0-4.0) % Baso % (Auto) (0.2-1.2) % Sodium (136-145) mmol/L Potassium (3.5-5.1) mmol/L Chloride (98-107) mmol/L Carbon Dioxide (21-32) mmol/L Anion Gap (10-20) mmol/L BUN (7-18) mg/dL Creatinine (0.55-1.02) mg/dL Est Cr Clr Drug Dosing Estimated GFR (MDRD) Glucose (74-106) mg/dL POC Glucose (74-106) mg/dL Lactic Acid 1.6 (0.4-2.0) mmol/L Calcium (8.5-10.1) mg/dL Urine Opiates Screen Negative (NEGATIVE) Ur Buprenorphine Scrn Positive H (NEGATIVE) Ur Oxycodone Screen Negative (NEGATIVE) Ur EDDP (Meth Metab) Negative (NEGATIVE) Urine Methadone Screen Negative (NEGATIVE) Ur Barbiturates Screen Negative (NEGATIVE) Ur Tricyclics Screen Positive H (NEGATIVE) Ur Phencyclidine Scrn Negative (NEGATIVE) Ur Amphetamine Screen Positive H (NEGATIVE) U Methamphetamines Scrn Positive H (NEGATIVE) Urine MDMA Screen Positive H (NEGATIVE) U Benzodiazepines Scrn Negative (NEGATIVE) U Cocaine Metab Screen Negative (NEGATIVE) U Marijuana (THC) Screen Positive H (NEGATIVE) SARS CoV-2 RNA Rapid PRINCESS Negative (NEGATIVE) Meds: Medications Generic Name Dose Route Start Last Admin Trade Name Freq PRN Reason Stop Dose Admin Sodium Chloride 1,000 mls @ 999 mls/hr 09/09/20 04:49 Normal Saline IV 09/09/20 05:49 ONETIME ONE Discontinued Medications Generic Name Dose Route Start Last Admin Trade Name Freq PRN Reason Stop Dose Admin Etomidate 20 mg 09/09/20 03:20 09/09/20 03:22 Amidate IVPUSH 09/09/20 03:21 20 mg ONETIME ONE Administration Sodium Chloride 1,000 mls @ 999 mls/hr 09/09/20 03:20 09/09/20 04:48 Normal Saline IV 09/09/20 04:20 999 mls/hr ONETIME ONE Administration Morphine Sulfate Confirm 09/09/20 04:32 09/09/20 04:26 Morphine Administered 09/09/20 04:33 4 mg Dose Administration 4 mg .ROUTE .STK-MED ONE Rocuronium [place] Confirm 09/09/20 03:23 09/09/20 04:46 Zemuron Administered 09/09/20 03:24 Not Given Dose 50 mg .ROUTE .STK-MED ONE Succinylcholine Chloride Confirm 09/09/20 03:23 09/09/20 03:23 Quelicin Administered 09/09/20 03:24 100 mg Dose Administration 200 mg .ROUTE .STK-MED ONE Departure - Departure Time of Disposition: 05:00 Disposition: DC/Tfer to [facility] 02 Condition: Good Clinical Impression: Unresponsiveness, Hypoglycemia, Polypharmacy - Discharge Information *PRESCRIPTION DRUG MONITORING PROGRAM REVIEWED*: Not Applicable *COPY OF PRESCRIPTION DRUG MONITORING REPORT IN PATIENT ISHAN: Not Applicable Forms: ED Department Discharge, Interfacility Transfer EMTALA Sepsis Event Note (ED) - Focused Exam Vital Signs: Vital Signs Temp Pulse Resp BP Pulse Ox 09/09/20 04:38 36.0 C L 66 14 115/71 100 - Problem List & Annotations (1) Unresponsive SNOMED Code(s): 604753922 Code(s): R41.89 - OTH SYMPTOMS AND SIGNS W COGNITIVE FUNCTIONS AND AWARENESS Status: Acute (2) Hypoglycemia SNOMED Code(s): 512216316 Code(s): E16.2 - HYPOGLYCEMIA, UNSPECIFIED Status: Acute - My Orders Last 24 Hours: My Active Orders 09/09/20 03:47 Chest 1V Frontal [CR] Stat 09/09/20 04:49 Sodium Chloride 0.9% [Normal Saline] 1,000 ml IV ONETIME - Assessment/Plan Last 24 Hours: My Active Orders 09/09/20 03:47 Chest 1V Frontal [CR] Stat 09/09/20 04:49 Sodium Chloride 0.9% [Normal Saline] 1,000 ml IV ONETIME
[2020-09-09 04:04] LABS: BARBITURATE SCREEN,URINE NEGATIVE (NEGATIVE); BENZODIAZEPINES SCREEN,URINE NEGATIVE (NEGATIVE); EDDP,URINE SCREEN NEGATIVE (NEGATIVE)
[2020-09-09 04:04] LABS: CHLORIDE,CL 106 mmol/L (98-107); SODIUM,NA 140 mmol/L (136-145)
[2020-09-09 04:05] LABS: METHAMPHETAMINE SCREEN, URINE POSITIVE (NEGATIVE); TCA SCREEN,URINE POSITIVE (NEGATIVE); THC SCREEN,URINE 50 NG/ML POSITIVE (NEGATIVE)
[2020-09-09 04:07] LABS: ANION GAP 9.9 mmol/L (10-20)
[2020-09-09] MEDS ORDERED: Morphine 4 MG/ML Syringe ONE (04:32)
[2020-09-09 04:40] VITALS: BP 115/71; PULSE 66
[2020-09-09] MEDS ORDERED: Sodium Chloride 0.9% 1,000 ML IV SCH (05:15)
[2020-09-09] MEDS ORDERED: Etomidate 2 MG/ML 10 ML SDV ONE (05:53)
[2020-09-09] MEDS ORDERED: Midazolam 1 MG/ML 2 ML SDV ONE (05:53)
--- NOTE | 2020-09-09 16:53 | CR ---
[id number] RAD/RAD Chest Portable EXAM: RAD Chest Portable INDICATION: POST INTUBATION DISCUSSION: Endotracheal tube in place. Tip 56 mm above the isabella. NG tube in place with tip in the stomach. Cardiomediastinal silhouette is normal in size and contour. Lungs are clear. No pleural effusion or pneumothorax. IMPRESSION: As above. Danis Seals MD 09/09/20 [id number] Thank you for allowing us to participate in the care of your patient.
== END 2020-09-09 07:12 | disposition short-term general hospital (02) ==
LOC: VM.ED 03:08
DX: E10.649 Type 1 diabetes mellitus with hypoglycemia without coma (principal); F19.10 Other psychoactive substance abuse, uncomplicated; I10 Essential (primary) hypertension; E10.40 Type 1 diabetes mellitus with diabetic neuropathy, unspecified; K21.9 Gastro-esophageal reflux disease without esophagitis; Z88.6 Allergy status to analgesic agent; Z79.899 Other long term (current) drug therapy; Z20.822 Contact with and (suspected) exposure to COVID-19
CPT/HCPCS: 31500; 36415; 36680; 43752; 51702; 71045; 80048; 80305-QW; 82962; 83605; 85025; 96374; 99284; 99285-25; J0330; J2250; J2270; J3490; J7030; U0002

== ENCOUNTER 2020-09-29 04:49 | Observation (INO) | payer MEDICAID ==
[2020-09-29] MEDS: Sodium Chloride 0.9% 1,000 ML IV SCH ×3 (05:09→18:31)
--- NOTE | 2020-09-29 05:34 | EDM.PDOC ---
ED HPI GENERAL MEDICAL PROBLEM - General Chief Complaint: Diabetic Complaint Stated Complaint: Nauseated Time Seen by Provider: 09/29/20 04:50 Source of Information: Reports: Patient, EMS History Limitations: Reports: Other (lethargic) - History of Present Illness INITIAL COMMENTS - FREE TEXT/NARRATIVE: Siobhan is a 40 year old female who presents per EMS with increased nausea, fatigue and "being so tired". She relates mother called EMS as she was too weak to get up. EMS was notified of possible diabetic concern. Blood sugar on scene was 409. She relates she did have her insulin today. Patient is due to go to rehab for her health issues and drug use on Wednesday. was recently started on a new medication to help her get off Klonopin. Per records, was started on Suboxone due to drug use but last drug screen when here 2 weeks ago was negative for this med. Did eat yesterday, has had diarrhea "multiple times". Admits was having chest discomfort when lying on back, shortness of breath at times but is now resolved if lying on her side. Currently has thrush, relates using nystatin swish and swallow for that. Nauseated but no vomiting. Admits to abdominal discomfort earlier but states that has improved. Has joint pain. Patient has been in ER multiple times for DKA, overdose, excessive drug use. States typically takes 3-5 units of insulin at mealtime, 30 units of Lantus at bedtime. Did not have her evening dose of insulin or her meds. Onset: Unknown/Unsure Location: Reports: Generalized Associated Symptoms: Reports: Chest Pain, Malaise, Nausea/Vomiting, Shortness of Breath, Weakness. Denies: Fever/Chills, Headaches - Related Data Allergies Allergy/AdvReac Type Severity Reaction Status Date / Time ibuprofen AdvReac Stomach Verified 09/29/20 05:00 Upset Home Meds: Home Meds atorvaSTATin [Lipitor] 10 mg PO BEDTIME 07/09/17 [History] Acetaminophen [Tylenol Extra Strength] 1,000 mg PO TID 04/25/18 [History] Insulin Glarg,Human.Rec.Analog [Lantus] 30 units SUBCUT BEDTIME 09/18/18 [History] Insulin Lispro [Humalog] 4 unit SUBCUT TIDMEALS 09/18/18 [History] PARoxetine [Paxil] 60 mg PO DAILY 02/04/19 [History] Sennosides/Docusate Sodium [Senna-Docusate Sodium Tablet] 2 tab PO BID 02/04/19 [History] glucagon HCL [Glucagon HCl] 1 mg IM ASDIRECTED PRN 02/04/19 [History] amLODIPine [Norvasc] 10 mg PO DAILY 08/17/19 [History] Lidocaine 2% [Xylocaine 2% Jelly] 1 dose TP DAILY PRN 12/24/19 [History] Mirtazapine [Remeron] 15 mg PO BEDTIME 12/24/19 [History] traZODone HCl [Trazodone HCl] 100 - 300 mg PO BEDTIME 12/24/19 [History] Dextrose [Glucose] 16 gm PO ASDIRECTED PRN 04/05/20 [History] Promethazine [Phenergan] 12.5 mg PO QID PRN 04/05/20 [History] clonazePAM [Clonazepam] 1 - 2 tab PO BEDTIME 04/05/20 [History] rOPINIRole [Requip] 0.5 mg PO BEDTIME 04/05/20 [History] risperiDONE 3 mg PO BEDTIME 04/05/20 [History] Buprenorphine/Naloxone [Buprenorphine-Naloxone 8 MG-2 MG] 1 tab SL TID 05/27/20 [History] Diclofenac Sodium [Voltaren 1% Gel] 2 gm TOP BID 05/27/20 [History] Diphenhyd/Lidocaine/Nystatin [Magic Mouthwash] 30 ml SSPIT TID PRN 05/27/20 [History] Gabapentin [Neurontin] 800 mg PO TID 05/27/20 [History] Sucralfate [Carafate] 1 gm PO QID PRN 05/27/20 [History] polyethylene glycoL 3350 [MiraLAX] 1 packet PO DAILY 05/27/20 [History] valACYclovir [Valtrex] 1,000 mg PO TID 05/27/20 [History] Dexlansoprazole [Dexilant] 60 mg PO DAILY 08/30/20 [History] Insulin Glarg,Human.Rec.Analog [Lantus] 30 unit SUBCUT DAILY ml 08/30/20 [Rx] Ketoconazole/Hydrocortisone [Pheyo 2.5%-2% Cream] 2 gram TOP BID 08/30/20 [History] buPROPion HCL [Wellbutrin Xl] 150 mg PO DAILY 08/30/20 [History] lamoTRIgine [Lamictal] 100 mg PO DAILY 08/30/20 [History] Past Medical History HEENT History: Reports: Impaired Vision Cardiovascular History: Reports: Blood Clots/VTE/DVT, Hypertension, Other (See Below) Other Cardiovascular History: blood clot R leg Respiratory History: Reports: Other (See Below) Other Respiratory History: hx of acute respiratory failure Gastrointestinal History: Reports: Irritable Bowel Syndrome, PUD Other Gastrointestinal History: acid reflux Genitourinary History: Reports: Urinary Incontinence, Other (See Below) Other Genitourinary History: hx of UTI, hx of acute kidney injury [employer] History: Reports: Musculoskeletal History: Reports: Other (See Below) Other Musculoskeletal History: right foot drop Neurological History: Reports: Neuropathy, Diabetic Psychiatric History: Reports: Anxiety, Bipolar, PTSD, Other (See Below) Other Psychiatric History: chronic narcotic use Endocrine/Metabolic History: Reports: Diabetes, Type I, Other (See Below) Other Endocrine/Metabolic History: 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, hx of ketoacidosis Hematologic History: Reports: Other (See Below) - Infectious Disease History Infectious Disease History: Reports: MRSA - Past Surgical History HEENT Surgical History: Reports: Adenoidectomy, Tonsillectomy, Other (See Below) Other HEENT Surgeries/Procedures: nasal surgery GI Surgical History: Reports: Cholecystectomy, Other (See Below) Other GI Surgeries/Procedures: Esophagus/ stomach repair Musculoskeletal Surgical History: Reports: Hip Replacement, Other (See Below) Other Musculoskeletal Surgeries/Procedures:: hx of carpal tunnel repair Social & Family History - Family History Family Medical History: No Pertinent Family History Other Psychiatric Family History: 2 brothers with substance abuse problems[ Endocrine/Metabolic: Reports: Diabetes, type II - Tobacco Use Tobacco Use Status *Q: Current Every Day Tobacco User - Caffeine Use Caffeine Use: Reports: Coffee Caffeine Use Comment: patient is lethargic to answer questions - Living Situation & Occupation Living situation: Reports: Occupation: Employed (has 2 children which she shares with jerry, mother has been living with her while she convalesces from DKA and mentla health issues. lizeth at [facility]) ED ROS GENERAL - Review of Systems Review Of Systems: See Below Constitutional: Reports: Chills, Malaise, Weakness, Fatigue. Denies: Fever HEENT: Reports: Other (thrush at present). Denies: Ear Pain, Sinus Problem, Throat Pain Respiratory: Reports: Shortness of Breath. Denies: Cough Cardiovascular: Reports: Chest Pain (pain at times but subsides if she lies on her side) Endocrine: Reports: Fatigue GI/Abdominal: Reports: Abdominal Pain (intermittent), Diarrhea, Nausea. Denies: Black Stool, Bloody Stool, Vomiting : Reports: No Symptoms Musculoskeletal: Reports: Muscle Pain Skin: Reports: No Symptoms Neurological: Reports: Weakness Psychiatric: Reports: Anxiety ED EXAM GENERAL NO PERIP PULSE - Physical Exam Exam: See Below Exam Limited By: Other (patient lethargic but does answer all questions appropriately) General Appearance: Lethargic Eye Exam: Bilateral Eye: Nystagmus, PERRL Ears: Normal External Exam, Normal TMs Nose: Normal Inspection, Normal Mucosa, No Blood Throat/Mouth: Other (white plaques noted) Head: Normocephalic Neck: Normal Inspection, Supple, Non-Tender Respiratory/Chest: No Respiratory Distress, Lungs Clear, Normal Breath Sounds Cardiovascular: Tachycardia GI/Abdominal: Normal Bowel Sounds, Soft, Non-Tender Extremities: Normal Inspection, No Pedal Edema Neurological: Oriented, Slow to Respond (at times yet does vocalize concerns) Skin Exam: Warm, Dry, Other (pale; has multiple scabs on hands) Course - Orders/Labs/Meds Orders: Active Orders 24 hr Category Date Time Status Blood Glucose Check, Bedside [] [facility] 09/29/20 06:03 Active Dextrose 50% in Water Med 09/29/20 06:03 Active 50 ml IV ASDIRECTED PRN Glucagon,Human Recombinant [GlucaGen] Med 09/29/20 06:03 Active 1 mg IM ASDIRECTED PRN Insulin Lispro [HumaLOG] Med 09/29/20 06:03 Once 10 unit SUBCUT ONETIME ONE Sodium Chloride 0.9% [Normal Saline] 1,000 ml Med 09/29/20 05:15 Active IV ASDIRECTED Medication Orders Dextrose/Water (Dextrose 50% In Water) 50 ml IV ASDIRECTED PRN PRN Reason: Hypoglycemia Glucagon (Glucagen) 1 mg IM ASDIRECTED PRN PRN Reason: Hypoglycemia Sodium Chloride (Normal Saline) 1,000 mls @ 150 mls/hr IV ASDIRECTED VIVIANA Last Admin: 09/29/20 05:09 Dose: 150 mls/hr Documented by: JOSE RAFAEL Labs: Laboratory Tests 09/29/20 09/29/20 09/29/20 Range/Units 05:25 05:25 05:42 WBC 9.1 (4.0-10.0) x10^3/uL RBC 4.77 (4.00-5.50) x10^6/uL Hgb 13.1 D (12.0-16.0) g/dL Hct 38.8 (33.0-47.0) % MCV 81.3 (78.0-93.0) fL MCH 27.5 (26.0-32.0) pg MCHC 33.8 (32.0-36.0) g/dL RDW Coeff of Roderick 14.3 (10.0-15.0) % Plt Count 312 D (130-400) x10^3/uL Neut % (Auto) 86.4 H (50.0-80.0) % Lymph % (Auto) 9.1 L (25.0-50.0) % Mcdowell % (Auto) 3.6 (2.0-11.0) % Eos % (Auto) 0.5 (0.0-4.0) % Baso % (Auto) 0.4 (0.2-1.2) % ABG pH (7.35-7.45) pH ABG pCO2 (35-48) mmHG ABG pO2 (83-108) mmHG ABG HCO3 (21-28) mmol/L ABG Total CO2 (22-29) mmol/L ABG O2 Saturation % ABG Base Excess ((-2)-(+3)) mmol/L FiO2 Sodium 137 (136-145) mmol/L Potassium 4.6 (3.5-5.1) mmol/L Chloride 99 (98-107) mmol/L Carbon Dioxide 12 L D (21-32) mmol/L Anion Gap 30.6 H (5-15) mmol/L BUN 22 H (7-18) mg/dL Creatinine 0.9 (0.55-1.02) mg/dL Est Cr Clr Drug Dosing TNP Estimated GFR (MDRD) > 60 Glucose 430 H* (74-106) mg/dL Calcium 9.3 (8.5-10.1) mg/dL Corrected Calcium 9.38 (8.5-10.1) mg/dL Magnesium 2.0 (1.8-2.4) mg/dL Total Bilirubin 1.0 (0.2-1.0) mg/dL AST 27 (15-37) U/L ALT 35 (14-59) U/L Alkaline Phosphatase 130 H (46-116) U/L Troponin I < 0.017 (<=0.056) ng/mL C-Reactive Protein 1.8 H (<=0.9) mg/dL Total Protein 7.7 (6.4-8.2) g/dL Albumin 3.9 (3.4-5.0) g/dL Globulin 3.8 Albumin/Globulin Ratio 1.03 Urine Color (YELLOW) Urine Appearance (CLEAR) Urine pH (5.0-8.0) Ur Specific [place] Urine Protein (NEGATIVE) mg/dL Urine Glucose (UA) (NEGATIVE) mg/dL Urine Ketones (NEGATIVE) mg/dL Urine Occult Blood (NEGATIVE) Urine Nitrite (NEGATIVE) Urine Bilirubin (NEGATIVE) Urine Urobilinogen (0.2) EU/dL Ur Leukocyte Esterase (NEGATIVE) Urine Opiates Screen Negative (NEGATIVE) Ur Buprenorphine Scrn Positive H (NEGATIVE) Ur Oxycodone Screen Negative (NEGATIVE) Ur EDDP (Meth Metab) Negative (NEGATIVE) Urine Methadone Screen Negative (NEGATIVE) Ur Barbiturates Screen Negative (NEGATIVE) Ur Tricyclics Screen Positive H (NEGATIVE) Ur Phencyclidine Scrn Negative (NEGATIVE) Ur Amphetamine Screen Positive H (NEGATIVE) U Methamphetamines Scrn Positive H (NEGATIVE) Urine MDMA Screen Negative (NEGATIVE) U Benzodiazepines Scrn Negative (NEGATIVE) U Cocaine Metab Screen Negative (NEGATIVE) U Marijuana (THC) Screen Negative (NEGATIVE) 09/29/20 09/29/20 Range/Units 05:42 06:01 WBC (4.0-10.0) x10^3/uL RBC (4.00-5.50) x10^6/uL Hgb (12.0-16.0) g/dL Hct (33.0-47.0) % MCV (78.0-93.0) fL MCH (26.0-32.0) pg MCHC (32.0-36.0) g/dL RDW Coeff of Roderick (10.0-15.0) % Plt Count (130-400) x10^3/uL Neut % (Auto) (50.0-80.0) % Lymph % (Auto) (25.0-50.0) % Mcdowell % (Auto) (2.0-11.0) % Eos % (Auto) (0.0-4.0) % Baso % (Auto) (0.2-1.2) % ABG pH 7.30 L (7.35-7.45) pH ABG pCO2 21 L (35-48) mmHG ABG pO2 106 (83-108) mmHG ABG HCO3 10 L (21-28) mmol/L ABG Total CO2 11 L (22-29) mmol/L ABG O2 Saturation 97.7 % ABG Base Excess -16 L ((-2)-(+3)) mmol/L FiO2 0.21 Sodium (136-145) mmol/L Potassium (3.5-5.1) mmol/L Chloride (98-107) mmol/L Carbon Dioxide (21-32) mmol/L Anion Gap (5-15) mmol/L BUN (7-18) mg/dL Creatinine (0.55-1.02) mg/dL Est Cr Clr Drug Dosing Estimated GFR (MDRD) Glucose (74-106) mg/dL Calcium (8.5-10.1) mg/dL Corrected Calcium (8.5-10.1) mg/dL Magnesium (1.8-2.4) mg/dL Total Bilirubin (0.2-1.0) mg/dL AST (15-37) U/L ALT (14-59) U/L Alkaline Phosphatase (46-116) U/L Troponin I (<=0.056) ng/mL C-Reactive Protein (<=0.9) mg/dL Total Protein (6.4-8.2) g/dL Albumin (3.4-5.0) g/dL Globulin Albumin/Globulin Ratio Urine Color Yellow (YELLOW) Urine Appearance Clear (CLEAR) Urine pH 5.5 (5.0-8.0) Ur Specific [place] 1.025 Urine Protein Negative (NEGATIVE) mg/dL Urine Glucose (UA) 500 H (NEGATIVE) mg/dL Urine Ketones >=160 H (NEGATIVE) mg/dL Urine Occult Blood Negative (NEGATIVE) Urine Nitrite Negative (NEGATIVE) Urine Bilirubin Small H (NEGATIVE) Urine Urobilinogen 0.2 (0.2) EU/dL Ur Leukocyte Esterase Negative (NEGATIVE) Urine Opiates Screen (NEGATIVE) Ur Buprenorphine Scrn (NEGATIVE) Ur Oxycodone Screen (NEGATIVE) Ur EDDP (Meth Metab) (NEGATIVE) Urine Methadone Screen (NEGATIVE) Ur Barbiturates Screen (NEGATIVE) Ur Tricyclics Screen (NEGATIVE) Ur Phencyclidine Scrn (NEGATIVE) Ur Amphetamine Screen (NEGATIVE) U Methamphetamines Scrn (NEGATIVE) Urine MDMA Screen (NEGATIVE) U Benzodiazepines Scrn (NEGATIVE) U Cocaine Metab Screen (NEGATIVE) U Marijuana (THC) Screen (NEGATIVE) Meds: Medications Generic Name Dose Route Start Last Admin Trade Name Freq PRN Reason Stop Dose Admin Dextrose/Water 50 ml 09/29/20 06:03 Dextrose 50% In Water IV ASDIRECTED PRN Hypoglycemia Glucagon 1 mg 09/29/20 06:03 Glucagen IM ASDIRECTED PRN Hypoglycemia Sodium Chloride 1,000 mls @ 150 mls/hr 09/29/20 05:15 09/29/20 05:09 Normal Saline IV 150 mls/hr ASDIRECTED VIVIANA Administration Discontinued Medications Generic Name Dose Route Start Last Admin Trade Name Freq PRN Reason Stop Dose Admin Insulin Human Lispro 10 unit 09/29/20 06:03 Humalog SUBCUT 09/29/20 06:04 ONETIME ONE Ondansetron HCl 4 mg 09/29/20 05:49 09/29/20 05:55 Zofran IVPUSH 09/29/20 05:50 4 mg ONETIME ONE Administration - Re-Assessments/Exams Free Text/Narrative Re-Assessment/Exam: 09/29/20 06:19 Patient started on IV fluids on arrival due to sedation, history of drug use and DKA. Labs do show elevated BUN, positive drug screen and glucose of 430 so IV fluids continued. Is more alert now. Offering more conversation and complaints. Given Zofran for nausea. Ice chips/water. After confirmation of drug screen of meth use, does admit that used about 5 days ago. Humulin R given. Departure - Departure Time of Disposition: 06:23 Disposition: Refer to Observation Condition: Undetermined Clinical Impression: Drug abuse and dependence, Hyperglycemia due to type 1 diabetes mellitus, Methamphetamine use - Discharge Information *PRESCRIPTION DRUG MONITORING PROGRAM REVIEWED*: No *COPY OF PRESCRIPTION DRUG MONITORING REPORT IN PATIENT ISHAN: No Referrals: Yara Lora, [Primary Care Provider] - Forms: ED Department Discharge - Problem List & Annotations (1) Drug abuse and dependence SNOMED Code(s): 2592807 Code(s): F19.20 - OTHER PSYCHOACTIVE SUBSTANCE DEPENDENCE, UNCOMPLICATED Status: Acute Priority: High Current Visit: Yes (2) Hyperglycemia due to type 1 diabetes mellitus SNOMED Code(s): 398647011530735, 847414937209791 Code(s): E10.65 - TYPE 1 DIABETES MELLITUS WITH HYPERGLYCEMIA Status: Acute Priority: High Current Visit: Yes (3) Methamphetamine use SNOMED Code(s): 873472886 Code(s): F15.10 - OTHER STIMULANT ABUSE, UNCOMPLICATED Status: Acute Priority: High Current Visit: Yes - Problem List Review Problem List Initiated/Reviewed/Updated: Yes - My Orders Last 24 Hours: My Active Orders 09/29/20 05:15 Sodium Chloride 0.9% [Normal Saline] 1,000 ml IV ASDIRECTED 09/29/20 06:03 Blood Glucose Check, Bedside [RC] WITHMEALSANDBED Dextrose 50% in Water 50 ml IV ASDIRECTED PRN Glucagon,Human Recombinant [GlucaGen] 1 mg IM ASDIRECTED PRN Insulin Lispro [HumaLOG] 10 unit SUBCUT ONETIME ONE - Assessment/Plan Admission H&P: Please use this note as an admission H&P Last 24 Hours: My Active Orders 09/29/20 05:15 Sodium Chloride 0.9% [Normal Saline] 1,000 ml IV ASDIRECTED 09/29/20 06:03 Blood Glucose Check, Bedside [RC] WITHMEALSANDBED Dextrose 50% in Water 50 ml IV ASDIRECTED PRN Glucagon,Human Recombinant [GlucaGen] 1 mg IM ASDIRECTED PRN Insulin Lispro [HumaLOG] 10 unit SUBCUT ONETIME ONE Assessment:: Hyperglycemia with history of Type I DM Methamphetamine use Drug abuse and dependence Plan: Will keep in observation, continue IV fluids due to elevated BUN, elevated blood sugar and meth use. Monitor blood sugars closely. Sliding scale insulin. Zofran for nausea.
[2020-09-29] MEDS ORDERED: Ondansetron 4 MG/2 ML SDV IVPUSH ONE (05:49)
[2020-09-29 05:51] LABS: BARBITURATE SCREEN,URINE NEGATIVE (NEGATIVE); EDDP,URINE SCREEN NEGATIVE (NEGATIVE); THC SCREEN,URINE 50 NG/ML NEGATIVE (NEGATIVE)
[2020-09-29 05:52] LABS: BENZODIAZEPINES SCREEN,URINE NEGATIVE (NEGATIVE); METHAMPHETAMINE SCREEN, URINE POSITIVE (NEGATIVE); TCA SCREEN,URINE POSITIVE (NEGATIVE)
[2020-09-29 05:58] LABS: ANION GAP 30.6 mmol/L (5-15); CHLORIDE,CL 99 mmol/L (98-107); SODIUM,NA 137 mmol/L (136-145)
[2020-09-29] MEDS ORDERED: 50% Dextrose in Water 50 ML Syringe IV PRN ×2 (06:03→08:44)
[2020-09-29] MEDS ORDERED: Insulin Lispro 100 Units/ML 3 ML Vial SUBCUT ONE (06:03)
[2020-09-29] MEDS ORDERED: Glucagon,Human Recombinant 1 MG Vial IM PRN ×2 (06:03→08:44)
[2020-09-29 06:07] LABS: PCO2 ARTERIAL 21 mmHG (35-48)
[2020-09-29 06:08] LABS: BASE EXCESS ARTERIAL -16 mmol/L ((-2)-(+3)); BICARBONATE,ARTERIAL 10 mmol/L (21-28); O2 SATURATION ARTERIAL 97.7 %; PO2 ARTERIAL 106 mmHG (83-108)
[2020-09-29] MEDS ORDERED: Insulin Regular, Human 100 Units/ML 3 ML Vial SUBCUT ONE (06:16)
[2020-09-29] MEDS ORDERED: Acetaminophen 325 MG Tab PO PRN (06:43)
[2020-09-29] MEDS ORDERED: Ondansetron 4 MG Tab.DIS PO PRN (06:43)
[2020-09-29] MEDS ORDERED: Sodium Chloride 0.9% 10 ML Syringe FLUSH PRN (06:43)
[2020-09-29] MEDS ORDERED: QUEtiapine 25 MG Tab PO PRN (08:44)
[2020-09-29] MEDS ORDERED: NYSTATIN SSPIT PRN (08:44)
[2020-09-29] MEDS ORDERED: Sucralfate 1 GM Tab PO PRN (08:44)
[2020-09-29] MEDS ORDERED: LIDOCAINE SSPIT PRN (08:44)
[2020-09-29] MEDS ORDERED: DEXTROSE PO PRN (08:44)
[2020-09-29] MEDS ORDERED: DIPHENHYD SSPIT PRN (08:44)
[2020-09-29] MEDS ORDERED: [UNRECOGNIZED DRUG - OTHER] PO PRN (08:44)
[2020-09-29] MEDS ORDERED: Glucose Gel 15 GM in 37.5 GM Tube PO PRN (09:37)
[2020-09-29] MEDS ORDERED: Al and Mag Hydroxide/Diphenhydramine/Lidocaine/Simethicone 237 ML Bottle PO PRN (09:39)
[2020-09-29] MEDS: Omeprazole 20 MG Cap.CR PO SCH ×2 (12:05→14:48)
[2020-09-29] MEDS: Gabapentin 400 MG Cap PO SCH ×3 (12:05→21:38)
[2020-09-29] MEDS: Insulin Lispro 100 Units/ML 3 ML Vial SUBCUT SCH ×4 (12:05→18:03)
[2020-09-29] MEDS ORDERED: LORazepam 1 MG Tab PO PRN (14:41)
[2020-09-29] MEDS: Enoxaparin 40 MG/0.4 ML Syringe SUBCUT SCH (14:47)
[2020-09-29] MEDS: buPROPion 150 MG Tab.ER PO SCH (14:48)
[2020-09-29] MEDS: PARoxetine 20 MG Tab PO SCH (14:48)
[2020-09-29] MEDS: Acetaminophen 500 MG Tab PO SCH ×2 (14:48→21:36)
[2020-09-29] MEDS ORDERED: rOPINIRole 0.5 MG Tab PO SCH (20:00)
[2020-09-29] MEDS ORDERED: risperiDONE 1 MG Tab PO SCH (20:00)
[2020-09-29] MEDS ORDERED: Insulin Glarg,Human.Rec.Analog 100 Unit/ML SUBCUT SCH (20:00)
[2020-09-29] MEDS ORDERED: atorvaSTATin 10 MG Tab PO SCH (20:00)
[2020-09-29] MEDS: BUPRENORPHINE NALOXONE SL SCH (21:40)
[2020-09-30] MEDS: Sodium Chloride 0.9% 1,000 ML IV SCH ×4 (01:41→17:02)
[2020-09-30] MEDS: Omeprazole 20 MG Cap.CR PO SCH (06:19)
[2020-09-30 07:03] LABS: CHLORIDE,CL 105 mmol/L (98-107); SODIUM,NA 140 mmol/L (136-145)
[2020-09-30 07:04] LABS: ANION GAP 26.9 mmol/L (5-15)
[2020-09-30] MEDS: Enoxaparin 40 MG/0.4 ML Syringe SUBCUT SCH (08:46)
[2020-09-30] MEDS: Insulin Lispro 100 Units/ML 3 ML Vial SUBCUT SCH ×2 (09:20→11:34)
[2020-09-30] MEDS: BUPRENORPHINE NALOXONE SL SCH ×2 (09:24→11:13)
[2020-09-30] MEDS: buPROPion 150 MG Tab.ER PO SCH (10:49)
--- NOTE | 2020-09-30 10:54 | PCM.PN ---
- General Info Date of Service: 09/30/20 Admission Dx/Problem (Free Text): Pt. was admitted observation on 09/29 at approx. 0600 AM with decreased level of consciousness and hyperglycemia. She was obtunded at that time. She continues to be quite somnolent and responds only to strong verbal stimuli which she was not yesterday. She was started on IV ativan yesterday for some agitation, and is currently on suboxone. She has a longstanding history of poorly controlled DM and addiction. Pt. states that she is still nauseated. Ph on admission was 7.3. This was not repeated but will be today. She has been afebrile since admission. She has been hemodynamically stable. Respiratory effort has been normal. O2 saturation is in the high 90s on room air. Blood glucose has been trending downward but is still 260 this AM. Functional Status: Reports: Pain Controlled - Review of Systems General: Reports: Weakness, Fatigue, Malaise HEENT: Reports: No Symptoms Pulmonary: Reports: No Symptoms Cardiovascular: Reports: No Symptoms Gastrointestinal: Reports: No Symptoms Genitourinary: Reports: No Symptoms Musculoskeletal: Reports: No Symptoms Skin: Reports: No Symptoms Neurological: Reports: Other (See HPI) Psychiatric: Reports: No Symptoms - Patient Data Vitals - Most Recent: Last Vital Signs Temp 36.6 C 09/30/20 10:00 Pulse 102 H 09/30/20 10:00 Resp 15 09/30/20 10:00 BP 125/72 09/30/20 10:00 Pulse Ox 100 09/30/20 10:00 Weight - Most Recent: 70.76 kg I&O - Last 24 Hours: Intake & Output 09/29/20 09/30/20 09/30/20 22:59 06:59 14:59 Intake Total 1923 0 Balance 1923 0 Lab Results Last 24 Hours: Laboratory Results - last 24 hr 09/29/20 09/29/20 09/29/20 Range/Units 11:34 15:04 17:22 WBC (4.0-10.0) x10^3/uL RBC (4.00-5.50) x10^6/uL Hgb (12.0-16.0) g/dL Hct (33.0-47.0) % MCV (78.0-93.0) fL MCH (26.0-32.0) pg MCHC (32.0-36.0) g/dL RDW Coeff of Roderick (10.0-15.0) % Plt Count (130-400) x10^3/uL Neut % (Auto) (50.0-80.0) % Lymph % (Auto) (25.0-50.0) % Whitley % (Auto) (2.0-11.0) % Eos % (Auto) (0.0-4.0) % Baso % (Auto) (0.2-1.2) % Sodium (136-145) mmol/L Potassium (3.5-5.1) mmol/L Chloride (98-107) mmol/L Carbon Dioxide (21-32) mmol/L Anion Gap (5-15) mmol/L BUN (7-18) mg/dL Creatinine (0.55-1.02) mg/dL Est Cr Clr Drug Dosing mL/min Estimated GFR (MDRD) Glucose (74-106) mg/dL POC Glucose 240 H 298 H 281 H (74-106) mg/dL Calcium (8.5-10.1) mg/dL Corrected Calcium (8.5-10.1) mg/dL Total Bilirubin (0.2-1.0) mg/dL AST (15-37) U/L ALT (14-59) U/L Alkaline Phosphatase (46-116) U/L C-Reactive Protein (<=0.9) mg/dL Total Protein (6.4-8.2) g/dL Albumin (3.4-5.0) g/dL Globulin Albumin/Globulin Ratio 09/29/20 09/30/20 09/30/20 Range/Units 21:44 06:16 06:16 WBC 8.7 (4.0-10.0) x10^3/uL RBC 4.31 (4.00-5.50) x10^6/uL Hgb 11.8 L (12.0-16.0) g/dL Hct 34.9 (33.0-47.0) % MCV 81.0 (78.0-93.0) fL MCH 27.4 (26.0-32.0) pg MCHC 33.8 (32.0-36.0) g/dL RDW Coeff of Roderick 14.5 (10.0-15.0) % Plt Count 312 (130-400) x10^3/uL Neut % (Auto) 85.8 H (50.0-80.0) % Lymph % (Auto) 11.6 L (25.0-50.0) % Whitley % (Auto) 2.2 (2.0-11.0) % Eos % (Auto) 0.2 (0.0-4.0) % Baso % (Auto) 0.2 (0.2-1.2) % Sodium 140 (136-145) mmol/L Potassium 3.9 (3.5-5.1) mmol/L Chloride 105 (98-107) mmol/L Carbon Dioxide 12 L (21-32) mmol/L Anion Gap 26.9 H (5-15) mmol/L BUN 11 (7-18) mg/dL Creatinine 0.8 (0.55-1.02) mg/dL Est Cr Clr Drug Dosing 99.64 mL/min Estimated GFR (MDRD) > 60 Glucose 297 H (74-106) mg/dL POC Glucose 153 H (74-106) mg/dL Calcium 8.2 L (8.5-10.1) mg/dL Corrected Calcium 9.00 (8.5-10.1) mg/dL Total Bilirubin 0.5 (0.2-1.0) mg/dL AST 19 (15-37) U/L ALT 30 (14-59) U/L Alkaline Phosphatase 103 (46-116) U/L C-Reactive Protein 1.4 H (<=0.9) mg/dL Total Protein 6.4 (6.4-8.2) g/dL Albumin 3.0 L (3.4-5.0) g/dL Globulin 3.4 Albumin/Globulin Ratio 0.88 /25/ Range/Units 06:19 WBC (4.0-10.0) x10^3/uL RBC (4.00-5.50) x10^6/uL Hgb (12.0-16.0) g/dL Hct (33.0-47.0) % MCV (78.0-93.0) fL MCH (26.0-32.0) pg MCHC (32.0-36.0) g/dL RDW Coeff of Roderick (10.0-15.0) % Plt Count (130-400) x10^3/uL Neut % (Auto) (50.0-80.0) % Lymph % (Auto) (25.0-50.0) % Whitley % (Auto) (2.0-11.0) % Eos % (Auto) (0.0-4.0) % Baso % (Auto) (0.2-1.2) % Sodium (136-145) mmol/L Potassium (3.5-5.1) mmol/L Chloride (98-107) mmol/L Carbon Dioxide (21-32) mmol/L Anion Gap (5-15) mmol/L BUN (7-18) mg/dL Creatinine (0.55-1.02) mg/dL Est Cr Clr Drug Dosing mL/min Estimated GFR (MDRD) Glucose (74-106) mg/dL POC Glucose 260 H (74-106) mg/dL Calcium (8.5-10.1) mg/dL Corrected Calcium (8.5-10.1) mg/dL Total Bilirubin (0.2-1.0) mg/dL AST (15-37) U/L ALT (14-59) U/L Alkaline Phosphatase (46-116) U/L C-Reactive Protein (<=0.9) mg/dL Total Protein (6.4-8.2) g/dL Albumin (3.4-5.0) g/dL Globulin Albumin/Globulin Ratio Med Orders - Current: Current Medications Acetaminophen (Tylenol) 650 mg PO Q4H PRN PRN Reason: Pain (Mild 1-3)/fever Acetaminophen (Tylenol Extra Strength) 1,000 mg PO TID [facility] Last Admin: 09/29/20 21:36 Dose: 1,000 mg Documented by: Atorvastatin Calcium (Lipitor) 10 mg PO BEDTIME [facility] Last Admin: 09/29/20 21:51 Dose: 10 mg Documented by: Bupropion HCl (Wellbutrin Xl) 150 mg PO DAILY [facility] Last Admin: 09/29/20 14:48 Dose: 150 mg Documented by: Dextrose (Glutose 15) 15 gm PO ONETIME PRN PRN Reason: Hypoglycemia Dextrose/Water (Dextrose 50% In Water) 50 ml IV ASDIRECTED PRN PRN Reason: Hypoglycemia Diphenhydr/Magaldrate/Simeth/Lidoca (First-Mouthwash Blm) 5 ml PO Q4H PRN PRN Reason: Mouth sores Enoxaparin Sodium (Lovenox) 40 mg SUBCUT DAILY [facility] Last Admin: 09/30/20 08:46 Dose: 40 mg Documented by: Gabapentin (Neurontin) 800 mg PO TID [facility] Last Admin: 09/29/20 21:38 Dose: 800 mg Documented by: Glucagon (Glucagen) 1 mg IM ASDIRECTED PRN PRN Reason: Hypoglycemia Sodium Chloride (Normal Saline) 1,000 mls @ 150 mls/hr IV ASDIRECTED [facility] Last Admin: 09/30/20 01:41 Dose: 150 mls/hr Documented by: Insulin Glargine (Lantus) 30 unit SUBCUT BEDTIME [facility] Last Admin: 09/29/20 21:41 Dose: 30 units Documented by: Insulin Human Lispro (Humalog) 0 unit SUBCUT TIDMEALS [facility]; Protocol Last Admin: 09/30/20 09:20 Dose: Not Given Documented by: Buprenorphine- Naloxone 8 Mg-2 Mg Sl Tabs Own Med 1 tab SL TID [facility] Last Admin: 09/30/20 09:24 Dose: 1 tab Documented by: Omeprazole (Omeprazole) 40 mg PO ACBREAKFAST [facility] Last Admin: 09/30/20 06:19 Dose: 40 mg Documented by: Ondansetron HCl (Zofran Odt) 4 mg PO Q4H PRN PRN Reason: nausea, able to take PO Paroxetine HCl (Paxil) 60 mg PO DAILY [facility] Last Admin: 09/29/20 14:48 Dose: 60 mg Documented by: Quetiapine Fumarate (Seroquel) 2 - 4 mg PO BEDTIME PRN PRN Reason: Insomnia Last Admin: 09/29/20 14:48 Dose: 25 mg Documented by: Risperidone (Risperidal) 3 mg PO BEDTIME [facility] Last Admin: 09/29/20 21:35 Dose: 3 mg Documented by: Ropinirole HCl (Requip) 0.5 mg PO BEDTIME [facility] Last Admin: 09/29/20 21:39 Dose: 0.5 mg Documented by: Sodium Chloride (Saline Flush) 10 ml FLUSH ASDIRECTED PRN PRN Reason: Keep Vein Open Sucralfate (Carafate) 1 gm PO QID PRN PRN Reason: Gas Discontinued Medications Dextrose/Water (Dextrose 50% In Water) 50 ml IV ASDIRECTED PRN PRN Reason: Hypoglycemia Glucagon (Glucagen) 1 mg IM ASDIRECTED PRN PRN Reason: Hypoglycemia Insulin Human Lispro (Humalog) 10 unit SUBCUT ONETIME ONE Stop: 09/29/20 06:04 Last Admin: 09/29/20 06:20 Dose: Not Given Documented by: Insulin Human Regular (Humulin R) 10 unit SUBCUT ONETIME ONE Stop: 09/29/20 06:17 Last Admin: 09/29/20 06:20 Dose: 10 units Documented by: Lorazepam (Ativan) 1 mg PO Q6H PRN PRN Reason: Anxiety Last Admin: 09/29/20 14:49 Dose: 1 mg Documented by: Non-Formulary Medication (Dextrose [Glucose]) 16 gm PO ASDIRECTED PRN PRN Reason: Hypoglycemia Non-Formulary Medication (Diphenhyd/Lidocaine/Nystatin) 30 ml SSPIT TID PRN PRN Reason: Pain Ondansetron HCl (Zofran) 4 mg IVPUSH ONETIME ONE Stop: 09/29/20 05:50 Last Admin: 09/29/20 05:55 Dose: 4 mg Documented by: - Exam General: Alert, Oriented HEENT: Pupils Equal, Pupils Reactive, EOMI, Mucous Membr. Moist/[place] Neck: Supple Lungs: Clear to Auscultation, Normal Respiratory Effort Cardiovascular: Regular Rate, Regular Rhythm GI/Abdominal Exam: Normal Bowel Sounds, Soft, Non-Tender (Female) Exam: Deferred Back Exam: Normal Inspection, Full Range of Motion Extremities: Normal Inspection, Normal Range of Motion, Non-Tender Peripheral Pulses: 4+: Radial (L) Skin: Warm, Dry, Intact Sepsis Event Note - Evaluation Sepsis Screening Result: No Definite Risk - Focused Exam Vital Signs: Vital Signs Temp Pulse Resp BP Pulse Ox 09/30/20 10:00 36.6 C 102 H 15 125/72 100 09/30/20 06:00 36.3 C 105 H 18 137/78 97 - Problem List Review Problem List Initiated/Reviewed/Updated: Yes - My Orders Last 24 Hours: My Active Orders 09/30/20 10:43 ABG [BLOOD GAS ARTERIAL] [BG] Routine 09/30/20 10:46 Head wo Cont [CT] Stat - Plan Plan:: Concerned that the patient is still quite somnolent. Will hold her ativan and suboxone. CT brain, chest x-ray, lactic acid and ABGs were ordered. She will need to be transitioned to acute today, as her 48 hour admission is up at 0500 this AM. Pt. is planning to start intensive outpatient treatment for addiction through [facility] as soon as she is discharged.
[2020-09-30 11:07] LABS: BICARBONATE,ARTERIAL 9 mmol/L (21-28); O2 SATURATION ARTERIAL 97.7 %; PCO2 ARTERIAL 24 mmHG (35-48); PO2 ARTERIAL 118 mmHG (83-108)
[2020-09-30 11:08] LABS: BASE EXCESS ARTERIAL -19 mmol/L ((-2)-(+3))
[2020-09-30] MEDS: Acetaminophen 500 MG Tab PO SCH ×2 (11:12→12:33)
[2020-09-30] MEDS: Gabapentin 400 MG Cap PO SCH ×2 (11:12→12:34)
[2020-09-30] MEDS ORDERED: Sodium Chloride 0.9% 1,000 ML IV SCH ×2 (11:30→14:00)
[2020-09-30] MEDS: PARoxetine 20 MG Tab PO SCH (12:33)
[2020-09-30 12:43] LABS: BARBITURATE SCREEN,URINE NEGATIVE (NEGATIVE); BENZODIAZEPINES SCREEN,URINE NEGATIVE (NEGATIVE); EDDP,URINE SCREEN NEGATIVE (NEGATIVE); METHAMPHETAMINE SCREEN, URINE NEGATIVE (NEGATIVE); TCA SCREEN,URINE NEGATIVE (NEGATIVE); THC SCREEN,URINE 50 NG/ML NEGATIVE (NEGATIVE)
--- NOTE | 2020-09-30 13:46 | CT ---
[id number] CT/CT Head WO IV EXAM: CT Head WO IV CLINICAL DATA: DECREASED LOC. COMPARISON STUDY: Multiple priors, most recent from August 29, 2020. FINDINGS: No intracranial hemorrhage, extra-axial fluid collection, mass, or acute ischemia. No hydrocephalus. Calvarium intact. Paranasal sinuses and mastoid air cells are clear. IMPRESSION: No acute intracranial findings or significant change from the prior examination. Danis Seals MD 09/30/20 [id number] Thank you for allowing us to participate in the care of your patient.
[2020-09-30] MEDS ORDERED: QUEtiapine 25 MG Tab PO PRN (14:05)
[2020-09-30 16:32] LABS: BASE EXCESS ARTERIAL -17 mmol/L ((-2)-(+3)); BICARBONATE,ARTERIAL 12 mmol/L (21-28); O2 SATURATION ARTERIAL 95 %; PCO2 ARTERIAL 31 mmHG (35-48); PO2 ARTERIAL 92 mmHG (83-108)
--- NOTE | 2020-09-30 17:03 | PCM.DCSUM1 ---
Discharge Summary - Hospital Course Free Text/Narrative:: Pt. is being transferred to [facility] due to worsening blood gasses. She was found to have a decrease in her pH from 7.3 to 7.2 this AM. She was fluid resuscitated throughout the morning/afternoon and is on her 3rd liter of NS. ABGs were repeated approx. 4 hours later and her pH had again dropped to 7.19 despite the fluids. Pt. was quite obtunded and alert to painful stimuli only this AM but was maintaining O2 saturation and airway, so she was not intubated. PCO2 has been low during her stay. She is alert to time and place and follows commands, but continues to be extremely somnolent but is arousable with verbal stimuli. Ativan, suboxone, and seroquel were discontinued in the event these were contributing to her change in mental status. CT scan of the patient's head this AM was negative. Troponin was negative as well. 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, UNCOMPLICATED Status: Acute Priority: High Current Visit: Yes (3) Dehydration SNOMED Code(s): 19902967 ICD Code: E86.0 - DEHYDRATION Status: Acute Current Visit: No Problem Details: resolved, eating well - Discharge Plan *PRESCRIPTION DRUG MONITORING PROGRAM REVIEWED*: No *COPY OF PRESCRIPTION DRUG MONITORING REPORT IN PATIENT ISHAN: No Home Medications: Home Meds atorvaSTATin [Lipitor] 10 mg PO BEDTIME 07/09/17 [History] Acetaminophen [Tylenol Extra Strength] 1,000 mg PO TID 04/25/18 [History] Insulin Lispro [Humalog] 4 - 10 unit SUBCUT TIDMEALS 09/18/18 [History] PARoxetine [Paxil] 60 mg PO DAILY 02/04/19 [History] glucagon HCL [Glucagon HCl] 1 mg IM ASDIRECTED PRN 02/04/19 [History] Lidocaine 2% [Xylocaine 2% Jelly] 1 dose TP DAILY PRN 12/24/19 [History] Dextrose [Glucose] 16 gm PO ASDIRECTED PRN 04/05/20 [History] Promethazine [Phenergan] 12.5 mg PO QID PRN 04/05/20 [History] rOPINIRole [Requip] 0.5 mg PO BEDTIME 04/05/20 [History] risperiDONE 3 mg PO BEDTIME 04/05/20 [History] Buprenorphine/Naloxone [Buprenorphine-Naloxone 8 MG-2 MG] 1 tab SL TID 05/27/20 [History] Diphenhyd/Lidocaine/Nystatin [Magic Mouthwash] 30 ml SSPIT TID PRN 05/27/20 [History] Gabapentin [Neurontin] 800 mg PO TID 05/27/20 [History] Sucralfate [Carafate] 1 gm PO QID PRN 05/27/20 [History] Dexlansoprazole [Dexilant] 60 mg PO DAILY 08/30/20 [History] buPROPion HCL [Wellbutrin Xl] 150 mg PO DAILY 08/30/20 [History] Hydrocortisone [Hydrocortisone 2.5% Crm] 1 applic TOP BID PRN 09/29/20 [History] Insulin Glarg,Human.Rec.Analog [Lantus] 30 unit SUBCUT BEDTIME 09/29/20 [History] QUEtiapine [SEROquel] 1 - 2 tab PO BEDTIME PRN 09/29/20 [History] Forms: ED Department Discharge Referrals: Yara Lora DO [Primary Care Provider] - - Discharge Summary/Plan Comment DC Time >30 min.: Yes Discharge Summary/Plan Comment: Pt. will be transferred to [facility]. Dr. Garcia accepts patient in transfer. Pt. is a code 1. Pt. mother was contacted. Discussed findings with patient and she indicated she agreed with plan. Will continue IV fluids at 500ml/hr. Blood glucose is down to 214mg/dl. All images were sent to [facility]. Reports, H and P and progress notes will be sent with the patient. - General Info Functional Status: Reports: Other (drinking water) - Review of Systems General: Reports: Fatigue, Malaise HEENT: Reports: No Symptoms Pulmonary: Reports: No Symptoms Cardiovascular: Reports: No Symptoms Gastrointestinal: Reports: Other (nausea, vomiting controlled with antiemetics today) Genitourinary: Reports: No Symptoms Musculoskeletal: Reports: No Symptoms Skin: Reports: No Symptoms Neurological: Reports: Other (decreased LOC, somnolent) Psychiatric: Reports: No Symptoms - Patient Data Vitals - Most Recent: Last Vital Signs Temp 36.4 C 09/30/20 14:00 Pulse 95 09/30/20 14:00 Resp 11 L 09/30/20 14:00 BP 120/69 09/30/20 14:00 Pulse Ox 97 09/30/20 14:00 Weight - Most Recent: 70.76 kg I&O - Last 24 hours: Intake & Output 09/30/20 09/30/20 09/30/20 06:59 14:59 22:59 Intake Total 0 Balance 0 Lab Results - Last 24 hrs: Laboratory Results - last 24 hr 09/29/20 09/29/20 09/30/20 Range/Units 17:22 21:44 06:16 WBC 8.7 (4.0-10.0) x10^3/uL RBC 4.31 (4.00-5.50) x10^6/uL Hgb 11.8 L (12.0-16.0) g/dL Hct 34.9 (33.0-47.0) % MCV 81.0 (78.0-93.0) fL MCH 27.4 (26.0-32.0) pg MCHC 33.8 (32.0-36.0) g/dL RDW Coeff of Roderick 14.5 (10.0-15.0) % Plt Count 312 (130-400) x10^3/uL Neut % (Auto) 85.8 H (50.0-80.0) % Lymph % (Auto) 11.6 L (25.0-50.0) % [place] % (Auto) 2.2 (2.0-11.0) % Eos % (Auto) 0.2 (0.0-4.0) % Baso % (Auto) 0.2 (0.2-1.2) % ABG pH (7.35-7.45) pH ABG pCO2 (35-48) mmHG ABG pO2 (83-108) mmHG ABG HCO3 (21-28) mmol/L ABG Total CO2 (22-29) mmol/L ABG O2 Saturation % ABG O2 Content (94-98) % ABG Base Excess ((-2)-(+3)) mmol/L FiO2 Sodium (136-145) mmol/L Potassium (3.5-5.1) mmol/L Chloride (98-107) mmol/L Carbon Dioxide (21-32) mmol/L Anion Gap (5-15) mmol/L BUN (7-18) mg/dL Creatinine (0.55-1.02) mg/dL Est Cr Clr Drug Dosing mL/min Estimated GFR (MDRD) Glucose (74-106) mg/dL POC Glucose 281 H 153 H (74-106) mg/dL Lactic Acid (0.4-2.0) mmol/L Calcium (8.5-10.1) mg/dL Corrected Calcium (8.5-10.1) mg/dL Total Bilirubin (0.2-1.0) mg/dL AST (15-37) U/L ALT (14-59) U/L Alkaline Phosphatase (46-116) U/L Troponin I (<=0.056) ng/mL C-Reactive Protein (<=0.9) mg/dL Total Protein (6.4-8.2) g/dL Albumin (3.4-5.0) g/dL Globulin Albumin/Globulin Ratio Urine Opiates Screen (NEGATIVE) Ur Buprenorphine Scrn (NEGATIVE) Ur Oxycodone Screen (NEGATIVE) Ur EDDP (Meth Metab) (NEGATIVE) Urine Methadone Screen (NEGATIVE) Ur Barbiturates Screen (NEGATIVE) Ur Tricyclics Screen (NEGATIVE) Ur Phencyclidine Scrn (NEGATIVE) Ur Amphetamine Screen (NEGATIVE) U Methamphetamines Scrn (NEGATIVE) Urine MDMA Screen (NEGATIVE) U Benzodiazepines Scrn (NEGATIVE) U Cocaine Metab Screen (NEGATIVE) U Marijuana (THC) Screen (NEGATIVE) 09/30/20 09/30/20 09/30/20 Range/Units 06:16 06:19 10:53 WBC (4.0-10.0) x10^3/uL RBC (4.00-5.50) x10^6/uL Hgb (12.0-16.0) g/dL Hct (33.0-47.0) % MCV (78.0-93.0) fL MCH (26.0-32.0) pg MCHC (32.0-36.0) g/dL RDW Coeff of Roderick (10.0-15.0) % Plt Count (130-400) x10^3/uL Neut % (Auto) (50.0-80.0) % Lymph % (Auto) (25.0-50.0) % [place] % (Auto) (2.0-11.0) % Eos % (Auto) (0.0-4.0) % Baso % (Auto) (0.2-1.2) % ABG pH 7.20 L* (7.35-7.45) pH ABG pCO2 24 L (35-48) mmHG ABG pO2 118 H (83-108) mmHG ABG HCO3 9 L (21-28) mmol/L ABG Total CO2 10 L (22-29) mmol/L ABG O2 Saturation 97.7 % ABG O2 Content (94-98) % ABG Base Excess -19 L ((-2)-(+3)) mmol/L FiO2 0.21 Sodium 140 (136-145) mmol/L Potassium 3.9 (3.5-5.1) mmol/L Chloride 105 (98-107) mmol/L Carbon Dioxide 12 L (21-32) mmol/L Anion Gap 26.9 H (5-15) mmol/L BUN 11 (7-18) mg/dL Creatinine 0.8 (0.55-1.02) mg/dL Est Cr Clr Drug Dosing 99.64 mL/min Estimated GFR (MDRD) > 60 Glucose 297 H (74-106) mg/dL POC Glucose 260 H (74-106) mg/dL Lactic Acid (0.4-2.0) mmol/L Calcium 8.2 L (8.5-10.1) mg/dL Corrected Calcium 9.00 (8.5-10.1) mg/dL Total Bilirubin 0.5 (0.2-1.0) mg/dL AST 19 (15-37) U/L ALT 30 (14-59) U/L Alkaline Phosphatase 103 (46-116) U/L Troponin I (<=0.056) ng/mL C-Reactive Protein 1.4 H (<=0.9) mg/dL Total Protein 6.4 (6.4-8.2) g/dL Albumin 3.0 L (3.4-5.0) g/dL Globulin 3.4 Albumin/Globulin Ratio 0.88 Urine Opiates Screen (NEGATIVE) Ur Buprenorphine Scrn (NEGATIVE) Ur Oxycodone Screen (NEGATIVE) Ur EDDP (Meth Metab) (NEGATIVE) Urine Methadone Screen (NEGATIVE) Ur Barbiturates Screen (NEGATIVE) Ur Tricyclics Screen (NEGATIVE) Ur Phencyclidine Scrn (NEGATIVE) Ur Amphetamine Screen (NEGATIVE) U Methamphetamines Scrn (NEGATIVE) Urine MDMA Screen (NEGATIVE) U Benzodiazepines Scrn (NEGATIVE) U Cocaine Metab Screen (NEGATIVE) U Marijuana (THC) Screen (NEGATIVE) 09/30/20 09/30/20 09/30/20 Range/Units 11:02 11:29 11:30 WBC (4.0-10.0) x10^3/uL RBC (4.00-5.50) x10^6/uL Hgb (12.0-16.0) g/dL Hct (33.0-47.0) % MCV (78.0-93.0) fL MCH (26.0-32.0) pg MCHC (32.0-36.0) g/dL RDW Coeff of Roderick (10.0-15.0) % Plt Count (130-400) x10^3/uL Neut % (Auto) (50.0-80.0) % Lymph % (Auto) (25.0-50.0) % [place] % (Auto) (2.0-11.0) % Eos % (Auto) (0.0-4.0) % Baso % (Auto) (0.2-1.2) % ABG pH (7.35-7.45) pH ABG pCO2 (35-48) mmHG ABG pO2 (83-108) mmHG ABG HCO3 (21-28) mmol/L ABG Total CO2 (22-29) mmol/L ABG O2 Saturation % ABG O2 Content (94-98) % ABG Base Excess ((-2)-(+3)) mmol/L FiO2 Sodium (136-145) mmol/L Potassium (3.5-5.1) mmol/L Chloride (98-107) mmol/L Carbon Dioxide (21-32) mmol/L Anion Gap (5-15) mmol/L BUN (7-18) mg/dL Creatinine (0.55-1.02) mg/dL Est Cr Clr Drug Dosing mL/min Estimated GFR (MDRD) Glucose (74-106) mg/dL POC Glucose 320 H 282 H (74-106) mg/dL Lactic Acid 0.8 (0.4-2.0) mmol/L Calcium (8.5-10.1) mg/dL Corrected Calcium (8.5-10.1) mg/dL Total Bilirubin (0.2-1.0) mg/dL AST (15-37) U/L ALT (14-59) U/L Alkaline Phosphatase (46-116) U/L Troponin I (<=0.056) ng/mL C-Reactive Protein (<=0.9) mg/dL Total Protein (6.4-8.2) g/dL Albumin (3.4-5.0) g/dL Globulin Albumin/Globulin Ratio Urine Opiates Screen (NEGATIVE) Ur Buprenorphine Scrn (NEGATIVE) Ur Oxycodone Screen (NEGATIVE) Ur EDDP (Meth Metab) (NEGATIVE) Urine Methadone Screen (NEGATIVE) Ur Barbiturates Screen (NEGATIVE) Ur Tricyclics Screen (NEGATIVE) Ur Phencyclidine Scrn (NEGATIVE) Ur Amphetamine Screen (NEGATIVE) U Methamphetamines Scrn (NEGATIVE) Urine MDMA Screen (NEGATIVE) U Benzodiazepines Scrn (NEGATIVE) U Cocaine Metab Screen (NEGATIVE) U Marijuana (THC) Screen (NEGATIVE) 09/30/20 09/30/20 09/30/20 Range/Units 11:30 12:30 16:10 WBC (4.0-10.0) x10^3/uL RBC (4.00-5.50) x10^6/uL Hgb (12.0-16.0) g/dL Hct (33.0-47.0) % MCV (78.0-93.0) fL MCH (26.0-32.0) pg MCHC (32.0-36.0) g/dL RDW Coeff of Roderick (10.0-15.0) % Plt Count (130-400) x10^3/uL Neut % (Auto) (50.0-80.0) % Lymph % (Auto) (25.0-50.0) % [place] % (Auto) (2.0-11.0) % Eos % (Auto) (0.0-4.0) % Baso % (Auto) (0.2-1.2) % ABG pH 7.19 L* (7.35-7.45) pH ABG pCO2 31 L (35-48) mmHG ABG pO2 92 (83-108) mmHG ABG HCO3 12 L (21-28) mmol/L ABG Total CO2 (22-29) mmol/L ABG O2 Saturation 95 % ABG O2 Content 95 (94-98) % ABG Base Excess -17 L ((-2)-(+3)) mmol/L FiO2 0.21 Sodium (136-145) mmol/L Potassium (3.5-5.1) mmol/L Chloride (98-107) mmol/L Carbon Dioxide (21-32) mmol/L Anion Gap (5-15) mmol/L BUN (7-18) mg/dL Creatinine (0.55-1.02) mg/dL Est Cr Clr Drug Dosing mL/min Estimated GFR (MDRD) Glucose (74-106) mg/dL POC Glucose (74-106) mg/dL Lactic Acid (0.4-2.0) mmol/L Calcium (8.5-10.1) mg/dL Corrected Calcium (8.5-10.1) mg/dL Total Bilirubin (0.2-1.0) mg/dL AST (15-37) U/L ALT (14-59) U/L Alkaline Phosphatase (46-116) U/L Troponin I < 0.017 (<=0.056) ng/mL C-Reactive Protein (<=0.9) mg/dL Total Protein (6.4-8.2) g/dL Albumin (3.4-5.0) g/dL Globulin Albumin/Globulin Ratio Urine Opiates Screen Negative (NEGATIVE) Ur Buprenorphine Scrn Positive H (NEGATIVE) Ur Oxycodone Screen Negative (NEGATIVE) Ur EDDP (Meth Metab) Negative (NEGATIVE) Urine Methadone Screen Negative (NEGATIVE) Ur Barbiturates Screen Negative (NEGATIVE) Ur Tricyclics Screen Negative (NEGATIVE) Ur Phencyclidine Scrn Negative (NEGATIVE) Ur Amphetamine Screen Positive H (NEGATIVE) U Methamphetamines Scrn Negative (NEGATIVE) Urine MDMA Screen Negative (NEGATIVE) U Benzodiazepines Scrn Negative (NEGATIVE) U Cocaine Metab Screen Negative (NEGATIVE) U Marijuana (THC) Screen Negative (NEGATIVE) 09/30/20 Range/Units 16:44 WBC (4.0-10.0) x10^3/uL RBC (4.00-5.50) x10^6/uL Hgb (12.0-16.0) g/dL Hct (33.0-47.0) % MCV (78.0-93.0) fL MCH (26.0-32.0) pg MCHC (32.0-36.0) g/dL RDW Coeff of Roderick (10.0-15.0) % Plt Count (130-400) x10^3/uL Neut % (Auto) (50.0-80.0) % Lymph % (Auto) (25.0-50.0) % [place] % (Auto) (2.0-11.0) % Eos % (Auto) (0.0-4.0) % Baso % (Auto) (0.2-1.2) % ABG pH (7.35-7.45) pH ABG pCO2 (35-48) mmHG ABG pO2 (83-108) mmHG ABG HCO3 (21-28) mmol/L ABG Total CO2 (22-29) mmol/L ABG O2 Saturation % ABG O2 Content (94-98) % ABG Base Excess ((-2)-(+3)) mmol/L FiO2 Sodium (136-145) mmol/L Potassium (3.5-5.1) mmol/L Chloride (98-107) mmol/L Carbon Dioxide (21-32) mmol/L Anion Gap (5-15) mmol/L BUN (7-18) mg/dL Creatinine (0.55-1.02) mg/dL Est Cr Clr Drug Dosing mL/min Estimated GFR (MDRD) Glucose (74-106) mg/dL POC Glucose 214 H (74-106) mg/dL Lactic Acid (0.4-2.0) mmol/L Calcium (8.5-10.1) mg/dL Corrected Calcium (8.5-10.1) mg/dL Total Bilirubin (0.2-1.0) mg/dL AST (15-37) U/L ALT (14-59) U/L Alkaline Phosphatase (46-116) U/L Troponin I (<=0.056) ng/mL C-Reactive Protein (<=0.9) mg/dL Total Protein (6.4-8.2) g/dL Albumin (3.4-5.0) g/dL Globulin Albumin/Globulin Ratio Urine Opiates Screen (NEGATIVE) Ur Buprenorphine Scrn (NEGATIVE) Ur Oxycodone Screen (NEGATIVE) Ur EDDP (Meth Metab) (NEGATIVE) Urine Methadone Screen (NEGATIVE) Ur Barbiturates Screen (NEGATIVE) Ur Tricyclics Screen (NEGATIVE) Ur Phencyclidine Scrn (NEGATIVE) Ur Amphetamine Screen (NEGATIVE) U Methamphetamines Scrn (NEGATIVE) Urine MDMA Screen (NEGATIVE) U Benzodiazepines Scrn (NEGATIVE) U Cocaine Metab Screen (NEGATIVE) U Marijuana (THC) Screen (NEGATIVE) Med Orders - Current: Current Medications Acetaminophen (Tylenol) 650 mg PO Q4H PRN PRN Reason: Pain (Mild 1-3)/fever Acetaminophen (Tylenol Extra Strength) 1,000 mg PO TID [facility] Last Admin: 09/30/20 12:33 Dose: Not Given Documented by: Atorvastatin Calcium (Lipitor) 10 mg PO BEDTIME [facility] Last Admin: 09/29/20 21:51 Dose: 10 mg Documented by: Dextrose (Glutose 15) 15 gm PO ONETIME PRN PRN Reason: Hypoglycemia Dextrose/Water (Dextrose 50% In Water) 50 ml IV ASDIRECTED PRN PRN Reason: Hypoglycemia Diphenhydr/Magaldrate/Simeth/Lidoca (First-Mouthwash Blm) 5 ml PO Q4H PRN PRN Reason: Mouth sores Enoxaparin Sodium (Lovenox) 40 mg SUBCUT DAILY [facility] Last Admin: 09/30/20 08:46 Dose: 40 mg Documented by: Gabapentin (Neurontin) 800 mg PO TID [facility] Last Admin: 09/30/20 12:34 Dose: Not Given Documented by: Glucagon (Glucagen) 1 mg IM ASDIRECTED PRN PRN Reason: Hypoglycemia Sodium Chloride (Normal Saline) 1,000 mls @ 500 mls/hr IV ASDIRECTED [facility] Last Admin: 09/30/20 14:58 Dose: 500 mls/hr Documented by: Insulin Glargine (Lantus) 30 unit SUBCUT BEDTIME [facility] Last Admin: 09/29/20 21:41 Dose: 30 units Documented by: Insulin Human Lispro (Humalog) 0 unit SUBCUT TIDMEALS [facility]; Protocol Last Admin: 09/30/20 11:34 Dose: 6 units Documented by: Buprenorphine- Naloxone 8 Mg-2 Mg Sl Tabs Own Med 1 tab SL TID [facility] Last Admin: 09/30/20 11:13 Dose: Not Given Documented by: Omeprazole (Omeprazole) 40 mg PO ACBREAKFAST [facility] Last Admin: 09/30/20 06:19 Dose: 40 mg Documented by: Ondansetron HCl (Zofran Odt) 4 mg PO Q4H PRN PRN Reason: nausea, able to take PO Paroxetine HCl (Paxil) 60 mg PO DAILY [facility] Last Admin: 09/30/20 12:33 Dose: Not Given Documented by: Quetiapine Fumarate (Seroquel) 50 - 100 mg PO BEDTIME PRN PRN Reason: Insomnia Risperidone (Risperidal) 3 mg PO BEDTIME [facility] Last Admin: 09/29/20 21:35 Dose: 3 mg Documented by: Ropinirole HCl (Requip) 0.5 mg PO BEDTIME [facility] Last Admin: 09/29/20 21:39 Dose: 0.5 mg Documented by: Sodium Chloride (Saline Flush) 10 ml FLUSH ASDIRECTED PRN PRN Reason: Keep Vein Open Sucralfate (Carafate) 1 gm PO QID PRN PRN Reason: Gas Discontinued Medications Bupropion HCl (Wellbutrin Xl) 150 mg PO DAILY [facility] Last Admin: 09/30/20 10:49 Dose: Not Given Documented by: Dextrose/Water (Dextrose 50% In Water) 50 ml IV ASDIRECTED PRN PRN Reason: Hypoglycemia Glucagon (Glucagen) 1 mg IM ASDIRECTED PRN PRN Reason: Hypoglycemia Sodium Chloride (Normal Saline) 1,000 mls @ 150 mls/hr IV ASDIRECTED [facility] Last Admin: 09/30/20 01:41 Dose: 150 mls/hr Documented by: Sodium Chloride (Normal Saline) 1,000 mls @ 999 mls/hr IV ASDIRECTED [facility] Stop: 09/30/20 12:31 Last Admin: 09/30/20 11:30 Dose: 999 mls/hr Documented by: Sodium Chloride (Normal Saline) 1,000 mls @ 500 mls/hr IV ASDIRECTED [facility] Insulin Human Lispro (Humalog) 10 unit SUBCUT ONETIME ONE Stop: 09/29/20 06:04 Last Admin: 09/29/20 06:20 Dose: Not Given Documented by: Insulin Human Regular (Humulin R) 10 unit SUBCUT ONETIME ONE Stop: 09/29/20 06:17 Last Admin: 09/29/20 06:20 Dose: 10 units Documented by: Lorazepam (Ativan) 1 mg PO Q6H PRN PRN Reason: Anxiety Last Admin: 09/29/20 14:49 Dose: 1 mg Documented by: Non-Formulary Medication (Dextrose [Glucose]) 16 gm PO ASDIRECTED PRN PRN Reason: Hypoglycemia Non-Formulary Medication (Diphenhyd/Lidocaine/Nystatin) 30 ml SSPIT TID PRN PRN Reason: Pain Ondansetron HCl (Zofran) 4 mg IVPUSH ONETIME ONE Stop: 09/29/20 05:50 Last Admin: 09/29/20 05:55 Dose: 4 mg Documented by: Quetiapine Fumarate (Seroquel) 2 - 4 mg PO BEDTIME PRN PRN Reason: Insomnia Last Admin: 09/29/20 14:48 Dose: 25 mg Documented by: - Exam General: Reports: Lethargic, Other (Alert to self and place, unable to recall date. Knows shes in the hospital.) HEENT: Reports: Pupils Equal, Pupils Reactive, EOMI Neck: Reports: Supple Lungs: Reports: Clear to Auscultation, Normal Respiratory Effort Cardiovascular: Reports: Regular Rate, Regular Rhythm GI/Abdominal Exam: Soft, No Mass (Female) Exam: Deferred Rectal (Female) Exam: Deferred Back Exam: Reports: Normal Inspection Extremities: Normal Inspection, Normal Range of Motion, No Pedal Edema, Normal Capillary Refill Skin: Reports: Warm, Dry, Intact Neurological: Reports: Other (See HPI) Psy/Mental Status: Reports: Labile Mood, Depressed
[2020-09-30 17:14] VITALS: BP 134/80; PULSE 112
== END 2020-09-30 18:10 | disposition short-term general hospital (02) ==
LOC: VM.ED 04:49 → VM.MS 06:40
PROVIDERS: ADMIT Physician Assistant Medical; ATTEND Internal Medicine
DX: E10.65 Type 1 diabetes mellitus with hyperglycemia (principal); E10.40 Type 1 diabetes mellitus with diabetic neuropathy, unspecified; E10.10 Type 1 diabetes mellitus with ketoacidosis without coma; I10 Essential (primary) hypertension; F17.200 Nicotine dependence, unspecified, uncomplicated; F19.20 Other psychoactive substance dependence, uncomplicated; F15.10 Other stimulant abuse, uncomplicated; Z20.822 Contact with and (suspected) exposure to COVID-19; Z88.8 Allergy status to other drugs, medicaments and biological substances; Z79.899 Other long term (current) drug therapy
CPT/HCPCS: 36415; 36600; 70450; 80053; 80305-QW; 81003; 82803; 82962; 83605; 83735; 84484; 85025; 86140; 96361; 96372; 96374; 99217; 99220; 99285-25; A9270-GY; G0378; J1650; J1815-GY; J2405; J7030; U0002

== ENCOUNTER 2021-01-12 11:24 | Emergency (ER) | payer MEDICAID ==
--- NOTE | 2021-01-12 11:58 | EDM.PDOC ---
ED HPI GENERAL MEDICAL PROBLEM - General Time Seen by Provider: 01/12/21 11:24 - History of Present Illness INITIAL COMMENTS - FREE TEXT/NARRATIVE: Pt. presents to ER with complaints of resolving chest pain, shortness of breath, and anxiety. Pt. states that she started feeling as though she was having a panic attack and called EMS. Pt. took her suboxone and klonopin and states that she is feeling much improved. Pt. states that her chest pain is resolving and she is no longer short of breath. Pt. states that her blood sugar was over 400mg/dl this AM and she states that she took 14 units of novolog for this. Pt. has a history of poorly controlled diabetes and has been seen numerous times in this facility for DKA in the pain. Pt. denies feeling lightheaded. Denies any nausea or vomiting. No bloody stools. Denies any abdominal pain. No current chest pain or shortness of breath. Onset: Today Onset Date: 01/12/21 Location: Reports: Generalized - Related Data Allergies Allergy/AdvReac Type Severity Reaction Status Date / Time ibuprofen AdvReac Stomach Verified 01/12/21 12:01 Upset Home Meds: Home Meds atorvaSTATin [Lipitor] 10 mg PO BEDTIME 07/09/17 [History] Acetaminophen [Tylenol Extra Strength] 1,000 mg PO TID 04/25/18 [History] Insulin Lispro [Humalog] 4 - 10 unit SUBCUT TIDMEALS 09/18/18 [History] PARoxetine [Paxil] 60 mg PO DAILY 02/04/19 [History] glucagon HCL [Glucagon HCl] 1 mg IM ASDIRECTED PRN 02/04/19 [History] Lidocaine 2% [Xylocaine 2% Jelly] 1 dose TP DAILY PRN 12/24/19 [History] Dextrose [Glucose] 16 gm PO ASDIRECTED PRN 04/05/20 [History] Promethazine [Phenergan] 12.5 mg PO QID PRN 04/05/20 [History] rOPINIRole [Requip] 0.5 mg PO BEDTIME 04/05/20 [History] risperiDONE 3 mg PO BEDTIME 04/05/20 [History] Buprenorphine/Naloxone [Buprenorphine-Naloxone 8 MG-2 MG] 1 tab SL TID 05/27/20 [History] Diphenhyd/Lidocaine/Nystatin [Magic Mouthwash] 30 ml SSPIT TID PRN 05/27/20 [History] Gabapentin [Neurontin] 800 mg PO TID 05/27/20 [History] Sucralfate [Carafate] 1 gm PO QID PRN 05/27/20 [History] Dexlansoprazole [Dexilant] 60 mg PO DAILY 08/30/20 [History] buPROPion HCL [Wellbutrin Xl] 150 mg PO DAILY 08/30/20 [History] Hydrocortisone [Hydrocortisone 2.5% Crm] 1 applic TOP BID PRN 09/29/20 [History] Insulin Glarg,Human.Rec.Analog [Lantus] 30 unit SUBCUT BEDTIME 09/29/20 [History] QUEtiapine [SEROquel] 1 - 2 tab PO BEDTIME PRN 09/29/20 [History] Past Medical History HEENT History: Reports: Impaired Vision Cardiovascular History: Reports: Blood Clots/VTE/DVT, Hypertension, Other (See Below) Other Cardiovascular History: blood clot R leg Respiratory History: Reports: Other (See Below) Other Respiratory History: hx of acute respiratory failure Gastrointestinal History: Reports: Irritable Bowel Syndrome, PUD Other Gastrointestinal History: acid reflux Genitourinary History: Reports: Urinary Incontinence, Other (See Below) Other Genitourinary History: hx of UTI, hx of acute kidney injury 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: Musculoskeletal History: Reports: Other (See Below) Other Musculoskeletal History: right foot drop Neurological History: Reports: Neuropathy, Diabetic Psychiatric History: Reports: Anxiety, Bipolar, PTSD, Other (See Below) Other Psychiatric History: chronic narcotic use Endocrine/Metabolic History: Reports: Diabetes, Type I, Other (See Below) Other Endocrine/Metabolic History: 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, hx of ketoacidosis Hematologic History: Reports: Other (See Below) - Infectious Disease History Infectious Disease History: Reports: MRSA - Past Surgical History HEENT Surgical History: Reports: Adenoidectomy, Tonsillectomy, Other (See Below) Other HEENT Surgeries/Procedures: nasal surgery GI Surgical History: Reports: Cholecystectomy, Other (See Below) Other GI Surgeries/Procedures: Esophagus/ stomach repair Musculoskeletal Surgical History: Reports: Hip Replacement, Other (See Below) Other Musculoskeletal Surgeries/Procedures:: hx of carpal tunnel repair Social & Family History - Family History Family Medical History: No Pertinent Family History Other Psychiatric Family History: 2 brothers with substance abuse problems[ Endocrine/Metabolic: Reports: Diabetes, type II - Caffeine Use Caffeine Use: Reports: Coffee, Energy Drinks, Soda Caffeine Use Comment: patient is lethargic to answer questions - Living Situation & Occupation Living situation: Reports: Occupation: Employed (has 2 children which she shares with jerry, mother has been living with her while she convalesces from DKA and mentla health issues. lizeth at [facility]) ED ROS GENERAL - Review of Systems Review Of Systems: See Below Constitutional: Reports: No Symptoms HEENT: Reports: No Symptoms Respiratory: Reports: No Symptoms Cardiovascular: Reports: No Symptoms Endocrine: Reports: No Symptoms GI/Abdominal: Reports: No Symptoms : Reports: No Symptoms Musculoskeletal: Reports: No Symptoms Skin: Reports: No Symptoms Neurological: Reports: No Symptoms Psychiatric: Reports: Anxiety Hematologic/Lymphatic: Reports: No Symptoms Immunologic: Reports: No Symptoms ED EXAM, GENERAL - Physical Exam Exam: See Below Exam Limited By: No Limitations General Appearance: Alert, WD/WN, No Apparent Distress Respiratory/Chest: No Respiratory Distress, Lungs Clear, Normal Breath Sounds, No Accessory Muscle Use, Chest Non-Tender Cardiovascular: Normal Peripheral Pulses, Regular Rate, Rhythm, No Edema, No JVD Peripheral Pulses: 4+: Radial (L) GI/Abdominal: Soft, Non-Tender, No Distention, No Mass (Female) Exam: Deferred Rectal (Female) Exam: Deferred Back Exam: Normal Inspection, Full Range of Motion Extremities: Normal Inspection, Normal Range of Motion, Non-Tender, No Pedal Edema, Normal Capillary Refill Neurological: Alert, Oriented, CN II-XII Intact, Normal Cognition, Normal Gait, Normal Reflexes, No Motor/Sensory Deficits Psychiatric: Normal Affect, Normal Mood Skin Exam: Warm, Dry, Intact, Normal Color, No Rash Lymphatic: No Adenopathy Course - Vital Signs Last Recorded V/S: Last Vital Signs Temp 36.1 C 01/12/21 11:28 Pulse 82 01/12/21 11:28 Resp 16 01/12/21 11:28 BP 131/77 01/12/21 11:28 Pulse Ox 97 01/12/21 11:28 Departure - Departure Time of Disposition: 12:15 Disposition: Home, Self-Care 01 Clinical Impression: Panic disorder - Discharge Information Instructions: Panic Attack, [id number] Forms: ED Department Discharge Additional Instructions: Home to rest. Continue with current medications. Recheck in clinic in 10-14 days, sooner if not gradually improving. Sepsis Event Note (ED) - Focused Exam Vital Signs: Vital Signs Temp Pulse Resp BP Pulse Ox 01/12/21 11:28 36.1 C 82 16 131/77 97 - Problem List Review Problem List Initiated/Reviewed/Updated: Yes - Assessment/Plan Plan: Pt. is requesting to be discharged, stating that she is feeling much better. She does not want further work-up. She is alert to time, date, and place. Pt. will be discharged. Urged to follow-up with PCP in the next 7-10 days.
[2021-01-12 12:04] VITALS: BP 131/77; PULSE 82
== END 2021-01-12 12:05 | disposition home or self-care (01) ==
LOC: VM.ED 11:24
DX: F41.0 Panic disorder [episodic paroxysmal anxiety] (principal); I10 Essential (primary) hypertension; E10.40 Type 1 diabetes mellitus with diabetic neuropathy, unspecified; E10.10 Type 1 diabetes mellitus with ketoacidosis without coma; Z88.8 Allergy status to other drugs, medicaments and biological substances; Z79.899 Other long term (current) drug therapy
CPT/HCPCS: 99284; 99285

== ENCOUNTER 2021-01-12 16:30 | Emergency (ER) | payer MEDICAID ==
[2021-01-12 16:48] VITALS: BP 157/96; PULSE 78
--- NOTE | 2021-01-12 17:00 | EDM.PDOC ---
ED HPI GENERAL MEDICAL PROBLEM - General Chief Complaint: General Stated Complaint: ER VISIT Time Seen by Provider: 01/12/21 16:30 Source of Information: Reports: Patient, EMS History Limitations: Reports: No Limitations - History of Present Illness INITIAL COMMENTS - FREE TEXT/NARRATIVE: Siobhan is a 40 year old female who presents with complaints of chest pain and nausea. Called 911 because the chest pain was getting more intense and is worried about her blood sugar. Patient was actually here by EMS 5 hours ago with same complaint. At that time, she had taken her suboxone and klonopin prior to arrival here and once arrived, was calm and asking to leave. Blood sugar has been running in the high 400s but had taken her insulin prior to calling EMS at that time. Now states she is worried about why it continues to run high. Admits that due to her anxiety hasn't eaten since yesterday. Took 14 units of humalog earlier and 10 more units after she got home. Relates that she is going through a custody arteaga with her . Sees them now every weekend and after school, is worried that she will lose them. States when she thinks about that, she gets a pounding in her chest and this afternoon, that pain was much worse. No vomiting. Is asking for water as states that helps the pain. EKG per EMS was unremarkable. Has been on Suboxone now, thus states, she has not been using any other drugs and "has been doing well and will never go back to that". Onset: Today, Sudden Duration: Intermittent Location: Reports: Chest Quality: Reports: Ache Severity: Moderate Improves with: Reports: Other ("water") Associated Symptoms: Reports: Chest Pain, Loss of Appetite, Malaise, Nausea/Vomiting, Weakness. 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, IV/IO Epigastric Pain Score (Numeric/FACES): 9 - Related Data Allergies Allergy/AdvReac Type Severity Reaction Status Date / Time ibuprofen AdvReac Stomach Verified 01/12/21 16:52 Upset Home Meds: Home Meds atorvaSTATin [Lipitor] 10 mg PO BEDTIME 07/09/17 [History] Acetaminophen [Tylenol Extra Strength] 1,000 mg PO TID 04/25/18 [History] Insulin Lispro [Humalog] 4 - 10 unit SUBCUT TIDMEALS 09/18/18 [History] PARoxetine [Paxil] 60 mg PO DAILY 02/04/19 [History] glucagon HCL [Glucagon HCl] 1 mg IM ASDIRECTED PRN 02/04/19 [History] Lidocaine 2% [Xylocaine 2% Jelly] 1 dose TP DAILY PRN 12/24/19 [History] Dextrose [Glucose] 16 gm PO ASDIRECTED PRN 04/05/20 [History] Promethazine [Phenergan] 12.5 mg PO QID PRN 04/05/20 [History] rOPINIRole [Requip] 0.5 mg PO BEDTIME 04/05/20 [History] risperiDONE 3 mg PO BEDTIME 04/05/20 [History] Buprenorphine/Naloxone [Buprenorphine-Naloxone 8 MG-2 MG] 1 tab SL TID 05/27/20 [History] Diphenhyd/Lidocaine/Nystatin [Magic Mouthwash] 30 ml SSPIT TID PRN 05/27/20 [History] Gabapentin [Neurontin] 800 mg PO TID 05/27/20 [History] Sucralfate [Carafate] 1 gm PO QID PRN 05/27/20 [History] Dexlansoprazole [Dexilant] 60 mg PO DAILY 08/30/20 [History] buPROPion HCL [Wellbutrin Xl] 150 mg PO DAILY 08/30/20 [History] Hydrocortisone [Hydrocortisone 2.5% Crm] 1 applic TOP BID PRN 09/29/20 [History] Insulin Glarg,Human.Rec.Analog [Lantus] 30 unit SUBCUT BEDTIME 09/29/20 [History] QUEtiapine [SEROquel] 1 - 2 tab PO BEDTIME PRN 09/29/20 [History] Past Medical History HEENT History: Reports: Impaired Vision Cardiovascular History: Reports: Blood Clots/VTE/DVT, Hypertension, Other (See Below) Other Cardiovascular History: blood clot R leg Respiratory History: Reports: Other (See Below) Other Respiratory History: hx of acute respiratory failure Gastrointestinal History: Reports: Irritable Bowel Syndrome, PUD Other Gastrointestinal History: acid reflux Genitourinary History: Reports: Urinary Incontinence, Other (See Below) Other Genitourinary History: hx of UTI, hx of acute kidney injury 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: Musculoskeletal History: Reports: Other (See Below) Other Musculoskeletal History: right foot drop Neurological History: Reports: Neuropathy, Diabetic Psychiatric History: Reports: Anxiety, Bipolar, PTSD, Other (See Below) Other Psychiatric History: chronic narcotic use Endocrine/Metabolic History: Reports: Diabetes, Type I, Other (See Below) Other Endocrine/Metabolic History: 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, hx of ketoacidosis Hematologic History: Reports: Other (See Below) - Infectious Disease History Infectious Disease History: Reports: MRSA - Past Surgical History HEENT Surgical History: Reports: Adenoidectomy, Tonsillectomy, Other (See Below) Other HEENT Surgeries/Procedures: nasal surgery GI Surgical History: Reports: Cholecystectomy, Other (See Below) Other GI Surgeries/Procedures: Esophagus/ stomach repair Musculoskeletal Surgical History: Reports: Hip Replacement, Other (See Below) Other Musculoskeletal Surgeries/Procedures:: hx of carpal tunnel repair Social & Family History - Family History Family Medical History: No Pertinent Family History Other Psychiatric Family History: 2 brothers with substance abuse problems[ Endocrine/Metabolic: Reports: Diabetes, type II - Tobacco Use Tobacco Use Status *Q: Unknown Ever Used Tobacco - Caffeine Use Caffeine Use: Reports: Coffee, Energy Drinks, Soda Caffeine Use Comment: patient is lethargic to answer questions - Living Situation & Occupation Living situation: Reports: Occupation: Employed (has 2 children which she shares with jerry, mother has been living with her while she convalesces from DKA and mentla health issues. lizeth at [facility]) ED ROS GENERAL - Review of Systems Review Of Systems: See Below Constitutional: Reports: Malaise, Weakness, Fatigue, Decreased Appetite. Denies: Fever, Chills HEENT: Denies: Ear Pain, Sinus Problem, Throat Pain Respiratory: Denies: Shortness of Breath, Cough Cardiovascular: Reports: Chest Pain. Denies: Edema, Lightheadedness Endocrine: Reports: Fatigue GI/Abdominal: Reports: Nausea. Denies: Abdominal Pain, Constipation, Diarrhea, Vomiting : Denies: Dysuria Musculoskeletal: Reports: No Symptoms Skin: Reports: No Symptoms Neurological: Reports: Weakness Psychiatric: Reports: Anxiety ED EXAM, GENERAL - Physical Exam Exam: See Below Exam Limited By: No Limitations General Appearance: Alert, WD/WN, No Apparent Distress Ears: Normal External Exam, Normal TMs Nose: Normal Inspection, Normal Mucosa, No Blood Throat/Mouth: Normal Inspection, Other (mucous membranes dry) Head: Normocephalic Neck: Normal Inspection, Supple, Non-Tender Respiratory/Chest: No Respiratory Distress, Lungs Clear, Normal Breath Sounds Cardiovascular: Regular Rate, Rhythm GI/Abdominal: Normal Bowel Sounds, Soft, Non-Tender Extremities: Normal Inspection, No Pedal Edema Neurological: Alert, Oriented Psychiatric: Anxious Skin Exam: Warm, Dry Course - Vital Signs Last Recorded V/S: Last Vital Signs Temp 98.1 F 01/12/21 16:35 Pulse 78 01/12/21 16:35 Resp 20 01/12/21 16:35 BP 157/96 H 01/12/21 16:35 Pulse Ox 100 01/12/21 16:35 - Orders/Labs/Meds Orders: Active Orders 24 hr Category Date Time Status Dextrose 50% in Water Med 01/12/21 17:35 Active 50 ml IV ASDIRECTED PRN Glucagon,Human Recombinant [GlucaGen] Med 01/12/21 17:35 Active 1 mg IM ASDIRECTED PRN Medication Orders Dextrose/Water (50% Dextrose In Water 50 Ml Syringe) 50 ml IV ASDIRECTED PRN PRN Reason: Hypoglycemia Glucagon (Glucagon,Human Recombinant 1 Mg Vial) 1 mg IM ASDIRECTED PRN PRN Reason: Hypoglycemia Labs: Laboratory Tests 01/12/21 01/12/21 01/12/21 Range/Units 17:03 17:03 17:16 WBC 7.9 (4.0-10.0) x10^3/uL RBC 5.27 (4.00-5.50) x10^6/uL Hgb 14.9 D (12.0-16.0) g/dL Hct 41.5 (33.0-47.0) % MCV 78.7 (78.0-93.0) fL MCH 28.3 (26.0-32.0) pg MCHC 35.9 (32.0-36.0) g/dL RDW Coeff of Roderick 13.7 (10.0-15.0) % Plt Count 300 (130-400) x10^3/uL Neut % (Auto) 83.0 H (50.0-80.0) % Lymph % (Auto) 13.5 L (25.0-50.0) % Hendry % (Auto) 2.4 (2.0-11.0) % Eos % (Auto) 0.5 (0.0-4.0) % Baso % (Auto) 0.6 (0.2-1.2) % Sodium 132 L (136-145) mmol/L Potassium 4.1 (3.5-5.1) mmol/L Chloride 94 L (98-107) mmol/L Carbon Dioxide 13 L (21-32) mmol/L Anion Gap 29.1 H (5-15) mmol/L BUN 20 H (7-18) mg/dL Creatinine 1.0 (0.55-1.02) mg/dL Est Cr Clr Drug Dosing TNP Estimated GFR (MDRD) > 60 Glucose 543 H* (70-99) mg/dL Calcium 9.5 (8.5-10.1) mg/dL Corrected Calcium 9.4 (8.5-10.1) mg/dL Total Bilirubin 0.9 (0.2-1.0) mg/dL AST 76 H (15-37) U/L ALT 108 H (14-59) U/L Alkaline Phosphatase 151 H (46-116) U/L Lactate Dehydrogenase 151 (81-234) U/L Creatine Kinase 30 (26-192) U/L Troponin I High Sens < 4 (<=51) ng/L Total Protein 7.6 (6.4-8.2) g/dL Albumin 4.1 (3.4-5.0) g/dL Globulin 3.5 Albumin/Globulin Ratio 1.17 Urine Color Light yellow (YELLOW) Urine Appearance Turbid H (CLEAR) Urine pH 5.0 (5.0-8.0) Ur Specific [place] 1.020 Urine Protein Negative (NEGATIVE) mg/dL Urine Glucose (UA) 500 H (NEGATIVE) mg/dL Urine Ketones >=160 H (NEGATIVE) mg/dL Urine Occult Blood Moderate H (NEGATIVE) Urine Nitrite Negative (NEGATIVE) Urine Bilirubin Small H (NEGATIVE) Urine Urobilinogen 0.2 (0.2) EU/dL Ur Leukocyte Esterase Negative (NEGATIVE) Urine RBC 5-10 H (NOT SEEN) /HPF Urine WBC 0-5 (NOT SEEN) /HPF Ur Squamous Epith Cells Few H (NOT SEEN) /HPF Urine Bacteria Not seen (NOT SEEN) /HPF Urine Mucus Rare H (NOT SEEN) /LPF Urine Yeast (Budding) Few (NONE - FEW) /HPF Urine Opiates Screen (NEGATIVE) Ur Buprenorphine Scrn (NEGATIVE) Ur Oxycodone Screen (NEGATIVE) Ur EDDP (Meth Metab) (NEGATIVE) Urine Methadone Screen (NEGATIVE) Ur Barbiturates Screen (NEGATIVE) Ur Tricyclics Screen (NEGATIVE) Ur Phencyclidine Scrn (NEGATIVE) Ur Amphetamine Screen (NEGATIVE) U Methamphetamines Scrn (NEGATIVE) Urine MDMA Screen (NEGATIVE) U Benzodiazepines Scrn (NEGATIVE) U Cocaine Metab Screen (NEGATIVE) U Marijuana (THC) Screen (NEGATIVE) 01/12/21 Range/Units 17:16 WBC (4.0-10.0) x10^3/uL RBC (4.00-5.50) x10^6/uL Hgb (12.0-16.0) g/dL Hct (33.0-47.0) % MCV (78.0-93.0) fL MCH (26.0-32.0) pg MCHC (32.0-36.0) g/dL RDW Coeff of Roderick (10.0-15.0) % Plt Count (130-400) x10^3/uL Neut % (Auto) (50.0-80.0) % Lymph % (Auto) (25.0-50.0) % Hendry % (Auto) (2.0-11.0) % Eos % (Auto) (0.0-4.0) % Baso % (Auto) (0.2-1.2) % Sodium (136-145) mmol/L Potassium (3.5-5.1) mmol/L Chloride (98-107) mmol/L Carbon Dioxide (21-32) mmol/L Anion Gap (5-15) mmol/L BUN (7-18) mg/dL Creatinine (0.55-1.02) mg/dL Est Cr Clr Drug Dosing Estimated GFR (MDRD) Glucose (70-99) mg/dL Calcium (8.5-10.1) mg/dL Corrected Calcium (8.5-10.1) mg/dL Total Bilirubin (0.2-1.0) mg/dL AST (15-37) U/L ALT (14-59) U/L Alkaline Phosphatase (46-116) U/L Lactate Dehydrogenase (81-234) U/L Creatine Kinase (26-192) U/L Troponin I High Sens (<=51) ng/L Total Protein (6.4-8.2) g/dL Albumin (3.4-5.0) g/dL Globulin Albumin/Globulin Ratio Urine Color (YELLOW) Urine Appearance (CLEAR) Urine pH (5.0-8.0) Ur Specific [place] Urine Protein (NEGATIVE) mg/dL Urine Glucose (UA) (NEGATIVE) mg/dL Urine Ketones (NEGATIVE) mg/dL Urine Occult Blood (NEGATIVE) Urine Nitrite (NEGATIVE) Urine Bilirubin (NEGATIVE) Urine Urobilinogen (0.2) EU/dL Ur Leukocyte Esterase (NEGATIVE) Urine RBC (NOT SEEN) /HPF Urine WBC (NOT SEEN) /HPF Ur Squamous Epith Cells (NOT SEEN) /HPF Urine Bacteria (NOT SEEN) /HPF Urine Mucus (NOT SEEN) /LPF Urine Yeast (Budding) (NONE - FEW) /HPF Urine Opiates Screen Negative (NEGATIVE) Ur Buprenorphine Scrn Positive H (NEGATIVE) Ur Oxycodone Screen Negative (NEGATIVE) Ur EDDP (Meth Metab) Negative (NEGATIVE) Urine Methadone Screen Negative (NEGATIVE) Ur Barbiturates Screen Negative (NEGATIVE) Ur Tricyclics Screen Negative (NEGATIVE) Ur Phencyclidine Scrn Negative (NEGATIVE) Ur Amphetamine Screen Negative (NEGATIVE) U Methamphetamines Scrn Negative (NEGATIVE) Urine MDMA Screen Negative (NEGATIVE) U Benzodiazepines Scrn Negative (NEGATIVE) U Cocaine Metab Screen Negative (NEGATIVE) U Marijuana (THC) Screen Negative (NEGATIVE) Meds: Medications Generic Name Dose Route Start Last Admin Trade Name Freq PRN Reason Stop Dose Admin Dextrose/Water 50 ml 01/12/21 17:35 50% Dextrose In Water 50 Ml Syringe IV ASDIRECTED PRN Hypoglycemia Glucagon 1 mg 01/12/21 17:35 Glucagon,Human Recombinant 1 Mg Vial IM ASDIRECTED PRN Hypoglycemia Discontinued Medications Generic Name Dose Route Start Last Admin Trade Name Freq PRN Reason Stop Dose Admin Insulin Human Lispro 20 unit 01/12/21 17:35 01/12/21 17:57 Insulin Lispro 100 Units/Ml 3 Ml Vial SUBCUT 01/12/21 17:36 20 units ONETIME ONE Administration - Re-Assessments/Exams Free Text/Narrative Re-Assessment/Exam: 01/12/21 18:44 Patient is feeling better. Got 20 units of humalog, blood sugar down to 380. Will discharge home. Departure - Departure Time of Disposition: 18:44 Disposition: Home, Self-Care 01 Condition: Fair Clinical Impression: Hyperglycemia without ketosis, Anxiety - Discharge Information *PRESCRIPTION DRUG MONITORING PROGRAM REVIEWED*: No *COPY OF PRESCRIPTION DRUG MONITORING REPORT IN PATIENT ISHAN: No Instructions: Hyperglycemia, [id number], Managing Anxiety, Adult Forms: ED Department Discharge Additional Instructions: 1. Rest 2. Normal meal intake with insulin use 3. If blood sugar high, contact ER or primary care provider for instruction if needed in regards to insulin 4. Usual meds for anxiety 5. Follow up with Dr. Lora as needed. Sepsis Event Note (ED) - Evaluation Sepsis Screening Result: No Definite Risk - Focused Exam Vital Signs: Vital Signs Temp Pulse Resp BP Pulse Ox 01/12/21 16:35 98.1 F 78 20 157/96 H 100 - My Orders Last 24 Hours: My Active Orders 01/12/21 17:35 Dextrose 50% in Water 50 ml IV ASDIRECTED PRN Glucagon,Human Recombinant [GlucaGen] 1 mg IM ASDIRECTED PRN - Assessment/Plan Last 24 Hours: My Active Orders 01/12/21 17:35 Dextrose 50% in Water 50 ml IV ASDIRECTED PRN Glucagon,Human Recombinant [GlucaGen] 1 mg IM ASDIRECTED PRN
[2021-01-12 17:26] LABS: BARBITURATE SCREEN,URINE NEGATIVE (NEGATIVE); BENZODIAZEPINES SCREEN,URINE NEGATIVE (NEGATIVE); EDDP,URINE SCREEN NEGATIVE (NEGATIVE); METHAMPHETAMINE SCREEN, URINE NEGATIVE (NEGATIVE); TCA SCREEN,URINE NEGATIVE (NEGATIVE); THC SCREEN,URINE 50 NG/ML NEGATIVE (NEGATIVE)
[2021-01-12 17:33] LABS: CHLORIDE,CL 94 mmol/L (98-107); SODIUM,NA 132 mmol/L (136-145)
[2021-01-12 17:35] LABS: ANION GAP 29.1 mmol/L (5-15)
[2021-01-12] MEDS ORDERED: 50% Dextrose in Water 50 ML Syringe IV PRN (17:35)
[2021-01-12] MEDS ORDERED: Glucagon,Human Recombinant 1 MG Vial IM PRN (17:35)
[2021-01-12] MEDS ORDERED: Insulin Lispro 100 Units/ML 3 ML Vial SUBCUT ONE (17:35)
== END 2021-01-12 19:47 | disposition home or self-care (01) ==
LOC: VM.ED 16:30
DX: F41.9 Anxiety disorder, unspecified (principal); I10 Essential (primary) hypertension; E10.65 Type 1 diabetes mellitus with hyperglycemia; E10.40 Type 1 diabetes mellitus with diabetic neuropathy, unspecified; Z88.8 Allergy status to other drugs, medicaments and biological substances; Z79.899 Other long term (current) drug therapy
CPT/HCPCS: 36415; 80053; 80305-QW; 81001; 82550; 82947; 83615; 84484; 85025; 99284; 99285; J1815-GY

== ENCOUNTER 2021-01-16 18:15 | Emergency (ER) | payer MEDICAID ==
[2021-01-16 18:54] VITALS: BP 142/57; PULSE 106
[2021-01-16] MEDS ORDERED: Sodium Chloride 0.9% 10 ML Syringe FLUSH PRN (19:35)
[2021-01-16] MEDS ORDERED: Lactated Ringers 1,000 ML IV ONE (19:36)
[2021-01-16] MEDS ORDERED: Ondansetron 4 MG/2 ML SDV IVPUSH ONE (19:36)
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
== END 2021-01-16 20:00 ==
LOC: VM.ED 18:15
DX: R07.9 Chest pain, unspecified (principal); I10 Essential (primary) hypertension; E10.10 Type 1 diabetes mellitus with ketoacidosis without coma; K21.9 Gastro-esophageal reflux disease without esophagitis; Z88.8 Allergy status to other drugs, medicaments and biological substances; Z79.82 Long term (current) use of aspirin; Z79.899 Other long term (current) drug therapy; Z53.8 Procedure and treatment not carried out for other reasons; Z86.59 Personal history of other mental and behavioral disorders
CPT/HCPCS: 99283; 99285-25

== ENCOUNTER 2021-01-17 14:02 | Emergency (ER) | payer MEDICAID ==
[2021-01-17] MEDS ORDERED: Sodium Chloride 0.9% 10 ML Syringe FLUSH PRN (14:07)
[2021-01-17] MEDS: Sodium Chloride 0.9% 1,000 ML IV SCH ×2 (14:10→16:58)
[2021-01-17] MEDS ORDERED: Ondansetron 4 MG/2 ML SDV IVPUSH ONE (14:10)
[2021-01-17] MEDS ORDERED: 50% Dextrose in Water 50 ML Syringe IV PRN (14:11)
[2021-01-17] MEDS ORDERED: Glucagon,Human Recombinant 1 MG Vial IM PRN (14:11)
[2021-01-17] MEDS ORDERED: Insulin Regular, Human 100 Units/ML 3 ML Vial IVPUSH ONE (14:11)
--- NOTE | 2021-01-17 15:11 | EDM.PDOC ---
ED HPI GENERAL MEDICAL PROBLEM - General Stated Complaint: LOW BLOOD SUGAR Time Seen by Provider: 01/17/21 15:04 Source of Information: Reports: Patient History Limitations: Reports: Altered Mental Status, Uncooperative - History of Present Illness INITIAL COMMENTS - FREE TEXT/NARRATIVE: Pt. presents to ER via EMS. Pt. Mother states that they checked on the patient today and found her to be experiencing nausea, vomiting, weakness, and confusion. Pt. was seen in ER yesterday with nausea, vomiting, and chest pain and signed out AMA. There was other critically ill patient's in the ER and she felt that she was being ignored. She was requesting water but was not given any as she was actively vomiting and wretching. Today, patient was resistant to care and treatment by EMS. Pt. was hemodynamically stable during her care with EMS. She did allow them to obtain IV access and they checked her BP which read "high". She was able to stand and transfer to [facility] on arrival to ER initially, but was otherwise uncooperative, unwilling to lay down and appeared to be unwilling to stay in bed. She was unable to provide a ROS and was speaking incoherently. Pt. mother states that the patient has been sleeping since she got home from the hospital yesterday. Mother was concerned due to her decreased LOC when she checked on her today. Onset: Today Onset Date: 01/17/21 Location: Reports: Generalized Associated Symptoms: Reports: Confusion, Nausea/Vomiting - Related Data Allergies Allergy/AdvReac Type Severity Reaction Status Date / Time ibuprofen AdvReac Stomach Verified 01/17/21 15:20 Upset Home Meds: Home Meds atorvaSTATin [Lipitor] 10 mg PO BEDTIME 07/09/17 [History] Acetaminophen [Tylenol Extra Strength] 1,000 mg PO TID 04/25/18 [History] Insulin Lispro [Humalog] 4 - 10 unit SUBCUT TIDMEALS 09/18/18 [History] PARoxetine [Paxil] 60 mg PO DAILY 02/04/19 [History] glucagon HCL [Glucagon HCl] 1 mg IM ASDIRECTED PRN 02/04/19 [History] Lidocaine 2% [Xylocaine 2% Jelly] 1 dose TP DAILY PRN 12/24/19 [History] Dextrose [Glucose] 16 gm PO ASDIRECTED PRN 04/05/20 [History] Promethazine [Phenergan] 12.5 mg PO QID PRN 04/05/20 [History] rOPINIRole [Requip] 0.5 mg PO BEDTIME 04/05/20 [History] risperiDONE 3 mg PO BEDTIME 04/05/20 [History] Buprenorphine/Naloxone [Buprenorphine-Naloxone 8 MG-2 MG] 1 tab SL TID 05/27/20 [History] Diphenhyd/Lidocaine/Nystatin [Magic Mouthwash] 30 ml SSPIT TID PRN 05/27/20 [History] Gabapentin [Neurontin] 800 mg PO TID 05/27/20 [History] Sucralfate [Carafate] 1 gm PO QID PRN 05/27/20 [History] Dexlansoprazole [Dexilant] 60 mg PO DAILY 08/30/20 [History] buPROPion HCL [Wellbutrin Xl] 150 mg PO DAILY 08/30/20 [History] Hydrocortisone [Hydrocortisone 2.5% Crm] 1 applic TOP BID PRN 09/29/20 [History] Insulin Glarg,Human.Rec.Analog [Lantus] 30 unit SUBCUT BEDTIME 09/29/20 [Histor y] QUEtiapine [SEROquel] 1 - 2 tab PO BEDTIME PRN 09/29/20 [History] Past Medical History HEENT History: Reports: Impaired Vision Cardiovascular History: Reports: Blood Clots/VTE/DVT, Hypertension, Other (See Below) Other Cardiovascular History: blood clot R leg Respiratory History: Reports: Other (See Below) Other Respiratory History: hx of acute respiratory failure Gastrointestinal History: Reports: Irritable Bowel Syndrome, PUD Other Gastrointestinal History: acid reflux Genitourinary History: Reports: Urinary Incontinence, Other (See Below) Other Genitourinary History: hx of UTI, hx of acute kidney injury 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: Musculoskeletal History: Reports: Other (See Below) Other Musculoskeletal History: right foot drop Neurological History: Reports: Neuropathy, Diabetic Psychiatric History: Reports: Anxiety, Bipolar, PTSD, Other (See Below) Other Psychiatric History: chronic narcotic use Endocrine/Metabolic History: Reports: Diabetes, Type I, Other (See Below) Other Endocrine/Metabolic History: 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, hx of ketoacidosis Hematologic History: Reports: Other (See Below) - Infectious Disease History Infectious Disease History: Reports: MRSA - Past Surgical History HEENT Surgical History: Reports: Adenoidectomy, Tonsillectomy, Other (See Below) Other HEENT Surgeries/Procedures: nasal surgery GI Surgical History: Reports: Cholecystectomy, Other (See Below) Other GI Surgeries/Procedures: Esophagus/ stomach repair Musculoskeletal Surgical History: Reports: Hip Replacement, Other (See Below) Other Musculoskeletal Surgeries/Procedures:: hx of carpal tunnel repair Social & Family History - Family History Family Medical History: No Pertinent Family History Other Psychiatric Family History: 2 brothers with substance abuse problems[ Endocrine/Metabolic: Reports: Diabetes, type II - Caffeine Use Caffeine Use: Reports: Coffee, Energy Drinks, Soda Caffeine Use Comment: patient is lethargic to answer questions - Living Situation & Occupation Living situation: Reports: Occupation: Employed (has 2 children which she shares with jerry, mother has been living with her while she convalesces from DKA and mentla health issues. lizeth at [facility]) ED ROS GENERAL - Review of Systems Review Of Systems: See Below (Much of her ROS was unobtainable.) Constitutional: Reports: Malaise, Weakness, Fatigue HEENT: Reports: Contact Lenses Respiratory: Reports: Other (Kussmaul breathing) Endocrine: Reports: High Glucose GI/Abdominal: Reports: Nausea, Vomiting Neurological: Reports: Confusion Psychiatric: Reports: Confusion ED EXAM, GENERAL - Physical Exam Exam: See Below Exam Limited By: No Limitations General Appearance: Alert, WD/WN, No Apparent Distress Eye Exam: Bilateral Eye: EOMI Nose: Normal Inspection, Normal Mucosa, No Blood Throat/Mouth: Normal Lips, Normal Gums, No Airway Compromise, Other (Edentulous. Oral mucosa is extremely dry.) Neck: Normal Inspection, Supple, Non-Tender, Full Range of Motion Respiratory/Chest: Lungs Clear, Normal Breath Sounds, No Accessory Muscle Use, Chest Non-Tender, Other (Kussmaul breathing) Cardiovascular: Normal Peripheral Pulses, Regular Rate, Rhythm Peripheral Pulses: 4+: Radial (L) GI/Abdominal: Soft, Non-Tender, No Distention, No Mass (Female) Exam: Deferred Rectal (Female) Exam: Deferred Back Exam: Normal Inspection, Full Range of Motion Extremities: Normal Range of Motion, Non-Tender, Normal Capillary Refill, Limited Range of Motion, Other (R lower extremity amputation) Neurological: CN II-XII Intact, Normal Reflexes, No Motor/Sensory Deficits, Confused, Disoriented, Unresponsive Skin Exam: Warm, Dry, Pallor Course - Vital Signs Last Recorded V/S: Last Vital Signs Temp 36.6 C 01/17/21 14:05 Pulse 141 H 01/17/21 15:36 Resp 28 H 01/17/21 15:36 BP 127/80 01/17/21 15:36 Pulse Ox 100 01/17/21 15:36 - Orders/Labs/Meds Orders: Active Orders 24 hr Category Date Time Status Chest 1V Frontal [CR] Stat Exams 01/17/21 16:21 Ordered ABG [BLOOD GAS ARTERIAL] [BG] Stat Lab 01/17/21 16:19 Ordered CULTURE BLOOD [BC] Stat Lab 01/17/21 14:50 Results CULTURE BLOOD [BC] Stat Lab 01/17/21 15:00 Received REFLEX LACTIC ACID YES OR NO [CHEM] Routine Lab 01/17/21 15:51 Received Dextrose 50% in Water Med 01/17/21 14:11 Active 50 ml IV ASDIRECTED PRN Glucagon,Human Recombinant [GlucaGen] Med 01/17/21 14:11 Active 1 mg IM ASDIRECTED PRN Piperacillin/Tazobactam [Zosyn] 4.5 gm Med 01/17/21 16:20 Ordered Sodium Chloride 0.9% [Normal Saline] 100 ml IV STAT Sodium Chloride 0.9% [Normal Saline] 1,000 ml Med 01/17/21 14:15 Active IV ASDIRECTED Sodium Chloride 0.9% [Saline Flush] Med 01/17/21 14:07 Active 10 ml FLUSH ASDIRECTED PRN Vancomycin 1 gm Med 01/17/21 16:20 Ordered Sodium Chloride 0.9% [Normal Saline (AdvBag)] 250 ml IV STAT Blood Culture x2 Reflex Set [OM.PC] Stat Oth 01/17/21 14:09 Ordered Peripheral IV Insertion Adult [OM.PC] Routine Oth 01/17/21 14:08 Ordered Medication Orders Dextrose/Water (50% Dextrose In Water 50 Ml Syringe) 50 ml IV ASDIRECTED PRN PRN Reason: Hypoglycemia Glucagon (Glucagon,Human Recombinant 1 Mg Vial) 1 mg IM ASDIRECTED PRN PRN Reason: Hypoglycemia Sodium Chloride (Normal Saline) 1,000 mls @ 1,000 mls/hr IV ASDIRECTED VIVIANA Last Admin: 01/17/21 14:10 Dose: 1,000 mls/hr Documented by: BRIELLE Piperacillin Sod/Tazobactam (Sod 4.5 gm/ Sodium Chloride) 100 mls @ 200 mls/hr IV STAT ONE Stop: 01/17/21 16:49 Vancomycin HCl 1 gm/ Sodium (Chloride) 250 mls @ 250 mls/hr IV STAT ONE Stop: 01/17/21 17:19 Sodium Chloride (Sodium Chloride 0.9% 10 Ml Syringe) 10 ml FLUSH ASDIRECTED PRN PRN Reason: Keep Vein Open Labs: Laboratory Tests 01/17/21 01/17/21 01/17/21 Range/Units 14:15 14:15 14:15 WBC (4.0-10.0) x10^3/uL RBC (4.00-5.50) x10^6/uL Hgb (12.0-16.0) g/dL Hct (33.0-47.0) % MCV (78.0-93.0) fL MCH (26.0-32.0) pg MCHC (32.0-36.0) g/dL RDW Coeff of Roderick (10.0-15.0) % Plt Count (130-400) x10^3/uL Add Manual Diff Neutrophils % (Manual) (50-80) % Band Neutrophils % (0-6) % Lymphocytes % (Manual) (25-50) % Monocytes % (Manual) (2-11) % Platelet Estimate PT (9.9-12.5) SEC INR (2.0-3.5) APTT (25.6-32.8) SEC Sodium (136-145) mmol/L Potassium (3.5-5.1) mmol/L Chloride (98-107) mmol/L Carbon Dioxide (21-32) mmol/L Anion Gap (5-15) mmol/L BUN (7-18) mg/dL Creatinine (0.55-1.02) mg/dL Est Cr Clr Drug Dosing Estimated GFR (MDRD) Glucose (70-99) mg/dL Lactic Acid (0.4-2.0) mmol/L Calcium (8.5-10.1) mg/dL Corrected Calcium (8.5-10.1) mg/dL Magnesium (1.8-2.4) mg/dL Total Bilirubin (0.2-1.0) mg/dL AST (15-37) U/L ALT (14-59) U/L Alkaline Phosphatase (46-116) U/L Troponin I High Sens (<=51) ng/L C-Reactive Protein (<=0.9) mg/dL Total Protein (6.4-8.2) g/dL Albumin (3.4-5.0) g/dL Globulin Albumin/Globulin Ratio Urine Color Yellow (YELLOW) Urine Appearance Clear (CLEAR) Urine pH 5.0 (5.0-8.0) Ur Specific Mousie 1.020 Urine Protein Negative (NEGATIVE) mg/dL Urine Glucose (UA) 500 H (NEGATIVE) mg/dL Urine Ketones 80 H (NEGATIVE) mg/dL Urine Occult Blood Trace-lysed H (NEGATIVE) Urine Nitrite Negative (NEGATIVE) Urine Bilirubin Negative (NEGATIVE) Urine Urobilinogen 0.2 (0.2) EU/dL Ur Leukocyte Esterase Negative (NEGATIVE) Urine RBC 0-5 (NOT SEEN) /HPF Urine WBC 0-5 (NOT SEEN) /HPF Ur Squamous Epith Cells Rare (NOT SEEN) /HPF Urine Bacteria Not seen (NOT SEEN) /HPF Urine Mucus Rare H (NOT SEEN) /LPF Urine HCG, Qual Negative (NEGATIVE) Urine Opiates Screen Negative (NEGATIVE) Ur Buprenorphine Scrn Negative (NEGATIVE) Ur Oxycodone Screen Negative (NEGATIVE) Ur EDDP (Meth Metab) Negative (NEGATIVE) Urine Methadone Screen Negative (NEGATIVE) Ur Barbiturates Screen Negative (NEGATIVE) Ur Tricyclics Screen Negative (NEGATIVE) Ur Phencyclidine Scrn Negative (NEGATIVE) Ur Amphetamine Screen Negative (NEGATIVE) U Methamphetamines Scrn Negative (NEGATIVE) Urine MDMA Screen Negative (NEGATIVE) U Benzodiazepines Scrn Negative (NEGATIVE) U Cocaine Metab Screen Negative (NEGATIVE) U Marijuana (THC) Screen Negative (NEGATIVE) Ethyl Alcohol (0-3) mg/dL SARS CoV-2 RNA Rapid PRINCESS (NEGATIVE) 01/17/21 01/17/21 01/17/21 Range/Units 15:00 15:00 15:00 WBC 25.2 H* (4.0-10.0) x10^3/uL RBC 5.12 (4.00-5.50) x10^6/uL Hgb 14.5 (12.0-16.0) g/dL Hct 44.3 (33.0-47.0) % MCV 86.5 D (78.0-93.0) fL MCH 28.3 (26.0-32.0) pg MCHC 32.7 (32.0-36.0) g/dL RDW Coeff of Roderick 14.9 (10.0-15.0) % Plt Count 437 H D (130-400) x10^3/uL Add Manual Diff Yes Neutrophils % (Manual) 89 H (50-80) % Band Neutrophils % 4 (0-6) % Lymphocytes % (Manual) 6 L (25-50) % Monocytes % (Manual) 1 L (2-11) % Platelet Estimate Increased H PT 12.0 (9.9-12.5) SEC INR 1.1 L (2.0-3.5) APTT (25.6-32.8) SEC Sodium 135 L (136-145) mmol/L Potassium 5.3 H (3.5-5.1) mmol/L Chloride 98 (98-107) mmol/L Carbon Dioxide < 5 L (21-32) mmol/L Anion Gap 37.29917 H (5-15) mmol/L BUN 24 H (7-18) mg/dL Creatinine 1.7 H (0.55-1.02) mg/dL Est Cr Clr Drug Dosing TNP Estimated GFR (MDRD) 34 Glucose 822 H* (70-99) mg/dL Lactic Acid (0.4-2.0) mmol/L Calcium 8.5 (8.5-10.1) mg/dL Corrected Calcium 8.5 (8.5-10.1) mg/dL Magnesium 2.3 (1.8-2.4) mg/dL Total Bilirubin 0.6 (0.2-1.0) mg/dL AST 26 (15-37) U/L ALT 51 (14-59) U/L Alkaline Phosphatase 162 H (46-116) U/L Troponin I High Sens 7 (<=51) ng/L C-Reactive Protein 0.5 (<=0.9) mg/dL Total Protein 7.7 (6.4-8.2) g/dL Albumin 4.0 (3.4-5.0) g/dL Globulin 3.7 Albumin/Globulin Ratio 1.08 Urine Color (YELLOW) Urine Appearance (CLEAR) Urine pH (5.0-8.0) Ur Specific Mousie Urine Protein (NEGATIVE) mg/dL Urine Glucose (UA) (NEGATIVE) mg/dL Urine Ketones (NEGATIVE) mg/dL Urine Occult Blood (NEGATIVE) Urine Nitrite (NEGATIVE) Urine Bilirubin (NEGATIVE) Urine Urobilinogen (0.2) EU/dL Ur Leukocyte Esterase (NEGATIVE) Urine RBC (NOT SEEN) /HPF Urine WBC (NOT SEEN) /HPF Ur Squamous Epith Cells (NOT SEEN) /HPF Urine Bacteria (NOT SEEN) /HPF Urine Mucus (NOT SEEN) /LPF Urine HCG, Qual (NEGATIVE) Urine Opiates Screen (NEGATIVE) Ur Buprenorphine Scrn (NEGATIVE) Ur Oxycodone Screen (NEGATIVE) Ur EDDP (Meth Metab) (NEGATIVE) Urine Methadone Screen (NEGATIVE) Ur Barbiturates Screen (NEGATIVE) Ur Tricyclics Screen (NEGATIVE) Ur Phencyclidine Scrn (NEGATIVE) Ur Amphetamine Screen (NEGATIVE) U Methamphetamines Scrn (NEGATIVE) Urine MDMA Screen (NEGATIVE) U Benzodiazepines Scrn (NEGATIVE) U Cocaine Metab Screen (NEGATIVE) U Marijuana (THC) Screen (NEGATIVE) Ethyl Alcohol < 3 (0-3) mg/dL SARS CoV-2 RNA Rapid PRINCESS (NEGATIVE) 01/17/21 01/17/21 01/17/21 Range/Units 15:00 15:00 15:25 WBC (4.0-10.0) x10^3/uL RBC (4.00-5.50) x10^6/uL Hgb (12.0-16.0) g/dL Hct (33.0-47.0) % MCV (78.0-93.0) fL MCH (26.0-32.0) pg MCHC (32.0-36.0) g/dL RDW Coeff of Roderick (10.0-15.0) % Plt Count (130-400) x10^3/uL Add Manual Diff Neutrophils % (Manual) (50-80) % Band Neutrophils % (0-6) % Lymphocytes % (Manual) (25-50) % Monocytes % (Manual) (2-11) % Platelet Estimate PT (9.9-12.5) SEC INR (2.0-3.5) APTT 27.0 (25.6-32.8) SEC Sodium (136-145) mmol/L Potassium (3.5-5.1) mmol/L Chloride (98-107) mmol/L Carbon Dioxide (21-32) mmol/L Anion Gap (5-15) mmol/L BUN (7-18) mg/dL Creatinine (0.55-1.02) mg/dL Est Cr Clr Drug Dosing Estimated GFR (MDRD) Glucose (70-99) mg/dL Lactic Acid 4.3 H* (0.4-2.0) mmol/L Calcium (8.5-10.1) mg/dL Corrected Calcium (8.5-10.1) mg/dL Magnesium (1.8-2.4) mg/dL Total Bilirubin (0.2-1.0) mg/dL AST (15-37) U/L ALT (14-59) U/L Alkaline Phosphatase (46-116) U/L Troponin I High Sens (<=51) ng/L C-Reactive Protein (<=0.9) mg/dL Total Protein (6.4-8.2) g/dL Albumin (3.4-5.0) g/dL Globulin Albumin/Globulin Ratio Urine Color (YELLOW) Urine Appearance (CLEAR) Urine pH (5.0-8.0) Ur Specific Mousie Urine Protein (NEGATIVE) mg/dL Urine Glucose (UA) (NEGATIVE) mg/dL Urine Ketones (NEGATIVE) mg/dL Urine Occult Blood (NEGATIVE) Urine Nitrite (NEGATIVE) Urine Bilirubin (NEGATIVE) Urine Urobilinogen (0.2) EU/dL Ur Leukocyte Esterase (NEGATIVE) Urine RBC (NOT SEEN) /HPF Urine WBC (NOT SEEN) /HPF Ur Squamous Epith Cells (NOT SEEN) /HPF Urine Bacteria (NOT SEEN) /HPF Urine Mucus (NOT SEEN) /LPF Urine HCG, Qual (NEGATIVE) Urine Opiates Screen (NEGATIVE) Ur Buprenorphine Scrn (NEGATIVE) Ur Oxycodone Screen (NEGATIVE) Ur EDDP (Meth Metab) (NEGATIVE) Urine Methadone Screen (NEGATIVE) Ur Barbiturates Screen (NEGATIVE) Ur Tricyclics Screen (NEGATIVE) Ur Phencyclidine Scrn (NEGATIVE) Ur Amphetamine Screen (NEGATIVE) U Methamphetamines Scrn (NEGATIVE) Urine MDMA Screen (NEGATIVE) U Benzodiazepines Scrn (NEGATIVE) U Cocaine Metab Screen (NEGATIVE) U Marijuana (THC) Screen (NEGATIVE) Ethyl Alcohol (0-3) mg/dL SARS CoV-2 RNA Rapid PRINCESS Negative (NEGATIVE) Meds: Medications Generic Name Dose Route Start Last Admin Trade Name Jana PRN Reason Stop Dose Admin Dextrose/Water 50 ml 01/17/21 14:11 50% Dextrose In Water 50 Ml Syringe IV ASDIRECTED PRN Hypoglycemia Glucagon 1 mg 01/17/21 14:11 Glucagon,Human Recombinant 1 Mg Vial IM ASDIRECTED PRN Hypoglycemia Sodium Chloride 1,000 mls @ 1,000 mls/hr 01/17/21 14:15 01/17/21 14:10 Normal Saline IV 1,000 mls/hr ASDIRECTED VIVIANA Administration Piperacillin Sod/Tazobactam 100 mls @ 200 mls/hr 01/17/21 16:20 Sod 4.5 gm/ Sodium Chloride IV 01/17/21 16:49 STAT ONE Vancomycin HCl 1 gm/ Sodium 250 mls @ 250 mls/hr 01/17/21 16:20 Chloride IV 01/17/21 17:19 STAT ONE Sodium Chloride 10 ml 01/17/21 14:07 Sodium Chloride 0.9% 10 Ml Syringe FLUSH ASDIRECTED PRN Keep Vein Open Discontinued Medications Generic Name Dose Route Start Last Admin Trade Name Jana PRN Reason Stop Dose Admin Insulin Human Regular 10 unit 01/17/21 14:11 01/17/21 14:15 Insulin Regular, Human 100 Units/Ml 3 Ml Vial IVPUSH 01/17/21 14:12 10 unit ONETIME ONE Administration Ondansetron HCl 4 mg 01/17/21 14:10 01/17/21 14:17 Ondansetron 4 Mg/2 Ml Sdv IVPUSH 01/17/21 14:11 4 mg ONETIME ONE Administration Rocuronium [place] Confirm 01/17/21 16:05 Rocuronium 50 Mg/5 Ml Vial Administered 01/17/21 16:06 Dose 50 mg .ROUTE .STK-MED ONE Succinylcholine Chloride Confirm 01/17/21 16:04 Succinylcholine 200 Mg/10 Ml Mdv Administered 01/17/21 16:05 Dose 200 mg .ROUTE .STK-MED ONE - Radiology Interpretation Free Text/Narrative:: ET tube was retracted after obtaining chest x-ray. No obvious infiltrate noted. - Re-Assessments/Exams Free Text/Narrative Re-Assessment/Exam: Pt. refusing to lie on her back to have IVs started, lab draws, etc. and was attempting to climb out of bed. decision was made to intubate the patient. RSI checklist was performed. Pt. was premedicated with fentanyl 100mcg and was given succinylcholine 140mg IV and Ketamine 140mg for induction. Pt. was intubated with a 7.5 ETT on the first attempt using a 4 mac blade and ET tube with stylet. placement confirmed with ETCO2. Bilateral breath sounds noted over all lung miller and no sounds over the epigastrium. ET tube was retracted after obtaining chest x-ray. Tube was secured at 24cm at the teeth. Pt. was given versed 4mg IV and rocuronium 50mg IV post intubation. Pt. was hemodynamically stable post intubation. Pt. Pt. was started on zosyn 4.5gm IV at Vancomycin 1gm IV in ER. She was started on an insulin drip at 8 units/hr. Roper catheter and OG tube are being placed. Departure - Departure Time of Disposition: 17:12 Disposition: DC/Tfer to Acute Hospital 02 Condition: Critical Clinical Impression: DKA (diabetic ketoacidoses) - Discharge Information Referrals: Yara Lora DO [Primary Care Provider] - Sepsis Event Note (ED) - Focused Exam Vital Signs: Vital Signs Temp Pulse Resp BP Pulse Ox 01/17/21 15:36 141 H 28 H 127/80 100 01/17/21 15:00 128 H 32 H 120/79 100 01/17/21 14:05 36.6 C 136 H 44 H 121/68 100 - My Orders Last 24 Hours: My Active Orders 01/17/21 14:07 Sodium Chloride 0.9% [Saline Flush] 10 ml FLUSH ASDIRECTED PRN 01/17/21 14:08 Peripheral IV Insertion Adult [OM.PC] Routine 01/17/21 14:09 Blood Culture x2 Reflex Set [OM.PC] Stat 01/17/21 14:11 Dextrose 50% in Water 50 ml IV ASDIRECTED PRN Glucagon,Human Recombinant [GlucaGen] 1 mg IM ASDIRECTED PRN 01/17/21 14:15 Sodium Chloride 0.9% [Normal Saline] 1,000 ml IV ASDIRECTED 01/17/21 14:50 CULTURE BLOOD [BC] Stat 01/17/21 15:00 CULTURE BLOOD [BC] Stat 01/17/21 15:51 REFLEX LACTIC ACID YES OR NO [CHEM] Routine 01/17/21 16:19 ABG [BLOOD GAS ARTERIAL] [BG] Stat 01/17/21 16:20 Piperacillin/Tazobactam [Zosyn] 4.5 gm Sodium Chloride 0.9% [Normal Saline] 100 ml IV STAT Vancomycin 1 gm Sodium Chloride 0.9% [Normal Saline (AdvBag)] 250 ml IV STAT 01/17/21 16:21 Chest 1V Frontal [CR] Stat - Assessment/Plan Last 24 Hours: My Active Orders 01/17/21 14:07 Sodium Chloride 0.9% [Saline Flush] 10 ml FLUSH ASDIRECTED PRN 01/17/21 14:08 Peripheral IV Insertion Adult [OM.PC] Routine 01/17/21 14:09 Blood Culture x2 Reflex Set [OM.PC] Stat 01/17/21 14:11 Dextrose 50% in Water 50 ml IV ASDIRECTED PRN Glucagon,Human Recombinant [GlucaGen] 1 mg IM ASDIRECTED PRN 01/17/21 14:15 Sodium Chloride 0.9% [Normal Saline] 1,000 ml IV ASDIRECTED 01/17/21 14:50 CULTURE BLOOD [BC] Stat 01/17/21 15:00 CULTURE BLOOD [BC] Stat 01/17/21 15:51 REFLEX LACTIC ACID YES OR NO [CHEM] Routine 01/17/21 16:19 ABG [BLOOD GAS ARTERIAL] [BG] Stat 01/17/21 16:20 Piperacillin/Tazobactam [Zosyn] 4.5 gm Sodium Chloride 0.9% [Normal Saline] 100 ml IV STAT Vancomycin 1 gm Sodium Chloride 0.9% [Normal Saline (AdvBag)] 250 ml IV STAT 01/17/21 16:21 Chest 1V Frontal [CR] Stat Plan: Pt. mother, La López was initially in contact with the hospital but stated that her phone was "dying" and was relying on another friend's phone. The number of the friend is [phone]. Mom's phone number is [phone]. She was informed through the friend that Siobhan was in critical condition, had been intubated, and was being transferred to [facility]. Pt. will be transported via [facility] ground ambulance. Pt. was given a total of 3 liters of normal saline in ER by the time she was transferred. She was given fluids at 500ml/hr after this first 3 liters. Pt. was accepted by Dr. Leos, feed and farm management adviser at [facility]. Pt. will be transferred via [facility] ground ambulance.
[2021-01-17 15:43] LABS: CHLORIDE,CL 98 mmol/L (98-107); SODIUM,NA 135 mmol/L (136-145)
[2021-01-17] MEDS ORDERED: fentaNYL 100 MCG/2 ML SDV IVPUSH ONE (16:00)
[2021-01-17] MEDS ORDERED: Midazolam 1 MG/ML 2 ML SDV IVPUSH ONE (16:00)
[2021-01-17 16:01] LABS: ANION GAP 37.30001 mmol/L (5-15)
[2021-01-17] MEDS ORDERED: Succinylcholine 200 MG/10 ML MDV ONE (16:04)
[2021-01-17] MEDS ORDERED: Rocuronium 50 MG/5 ML Vial ONE ×2 (16:05→17:38)
[2021-01-17] MEDS ORDERED: Ketamine 200 MG/20 ML MDV IVPUSH ONE (16:07)
[2021-01-17] MEDS ORDERED: Succinylcholine 200 MG/10 ML MDV IV STA (16:09)
[2021-01-17 16:16] LABS: BARBITURATE SCREEN,URINE NEGATIVE (NEGATIVE); BENZODIAZEPINES SCREEN,URINE NEGATIVE (NEGATIVE); EDDP,URINE SCREEN NEGATIVE (NEGATIVE); METHAMPHETAMINE SCREEN, URINE NEGATIVE (NEGATIVE); TCA SCREEN,URINE NEGATIVE (NEGATIVE); THC SCREEN,URINE 50 NG/ML NEGATIVE (NEGATIVE)
[2021-01-17] MEDS ORDERED: Rocuronium 50 MG/5 ML Vial IVPUSH ONE (16:20)
[2021-01-17] MEDS ORDERED: Piperacillin/Tazobactam 4.5 GM in Sodium Chloride 0.9% 100 ML IV ONE (16:20)
[2021-01-17 16:58] LABS: BICARBONATE,ARTERIAL 5 mmol/L (21-28); O2 SATURATION ARTERIAL 99.6 %; PCO2 ARTERIAL 20 mmHG (35-48); PO2 ARTERIAL 275 mmHG (83-108)
[2021-01-17 16:59] LABS: BASE EXCESS ARTERIAL -27 mmol/L ((-2)-(+3))
--- NOTE | 2021-01-17 17:08 | CR ---
[id number] RAD/RAD Chest PA or AP 1V EXAM: RAD Chest PA or AP 1V INDICATION: SEPSIS. TUBE PLACEMENT. INTUBATED. COMPARISON: September 09, 2020. Discussion/impression: Endotracheal tube has been placed. Tip is near the bifurcation extending into the superior aspect of the bronchus intermedius. Tube should be retracted 30 mm for placement 30 mm above the isabella. Lungs are clear. No pleural effusion or pneumothorax. Danis Seals MD 01/17/21 1649 Thank you for allowing us to participate in the care of your patient.
[2021-01-17] MEDS ORDERED: fentaNYL 100 MCG/2 ML SDV ONE (17:37)
[2021-01-17] MEDS ORDERED: Midazolam 1 MG/ML 2 ML SDV ONE (17:38)
[2021-01-17] MEDS ORDERED: Ketamine 200 MG/20 ML MDV ONE (17:38)
[2021-01-17 20:06] VITALS: BP 126/82; PULSE 131
== END 2021-01-17 17:45 | disposition short-term general hospital (02) ==
LOC: VM.ED 14:02
DX: E10.10 Type 1 diabetes mellitus with ketoacidosis without coma (principal); E10.40 Type 1 diabetes mellitus with diabetic neuropathy, unspecified; I10 Essential (primary) hypertension; K21.9 Gastro-esophageal reflux disease without esophagitis; Z79.899 Other long term (current) drug therapy; Z88.6 Allergy status to analgesic agent; Z20.822 Contact with and (suspected) exposure to COVID-19; Z86.718 Personal history of other venous thrombosis and embolism
CPT/HCPCS: 31500; 36415; 36600; 51702; 71045; 80053; 80305; 80307; 81001; 81025; 82803; 83605; 83735; 84484; 85025; 85610; 85730; 86140; 87040; 87635; 94002; 96365; 96375; 99284; 99285; J0330; J1815; J2250; J2405; J2543; J3010; J7030; U0002

== ENCOUNTER 2021-03-22 22:52 | Emergency (ER) | payer MEDICAID ==
[2021-03-22 23:31] VITALS: BP 160/97; PULSE 106
--- NOTE | 2021-03-23 03:54 | EDM.PDOC ---
ED HPI GENERAL MEDICAL PROBLEM - General Chief Complaint: Behavioral/Psych Stated Complaint: Suicidal Ideation Time Seen by Provider: 03/22/21 23:01 Source of Information: Reports: Patient History Limitations: Reports: No Limitations - History of Present Illness INITIAL COMMENTS - FREE TEXT/NARRATIVE: Pt. presents to ER via police. EMS were summoned by Mother. Pt. had been having an altercation with Mom and made statements that worried her. Pt. adamantly denies any suicidal or homicidal ideation. She states that she has too much to live for. She recently gave up use of meth, and her diabetes is under much better control. Pt. states that she has been under a lot of stress recently. He father recently of covid. She has children, however, and is very involved in their lives. She is currently involved in a custody arteaga for the children with her ex. Pt. 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 She is well known to ER. Onset: Today Chronic Pain Pain Score (Numeric/FACES): 4 - Related Data Allergies Allergy/AdvReac Type Severity Reaction Status Date / Time ibuprofen AdvReac Stomach Verified 03/22/21 23:10 Upset Home Meds: Home Meds atorvaSTATin [Lipitor] 10 mg PO BEDTIME 07/09/17 [History] Acetaminophen [Tylenol Extra Strength] 1,000 mg PO TID 04/25/18 [History] Insulin Lispro [Humalog] 4 - 10 unit SUBCUT TIDMEALS 09/18/18 [History] PARoxetine [Paxil] 60 mg PO DAILY 02/04/19 [History] glucagon HCL [Glucagon HCl] 1 mg IM ASDIRECTED PRN 02/04/19 [History] Lidocaine 2% [Xylocaine 2% Jelly] 1 dose TP DAILY PRN 12/24/19 [History] Dextrose [Glucose] 16 gm PO ASDIRECTED PRN 04/05/20 [History] Promethazine [Phenergan] 12.5 mg PO QID PRN 04/05/20 [History] rOPINIRole [Requip] 0.5 mg PO BEDTIME 04/05/20 [History] risperiDONE 3 mg PO BEDTIME 04/05/20 [History] Buprenorphine/Naloxone [Buprenorphine-Naloxone 8 MG-2 MG] 1 tab SL TID 05/27/20 [History] Diphenhyd/Lidocaine/Nystatin [Magic Mouthwash] 30 ml SSPIT TID PRN 05/27/20 [History] Gabapentin [Neurontin] 800 mg PO TID 05/27/20 [History] Sucralfate [Carafate] 1 gm PO QID PRN 05/27/20 [History] Dexlansoprazole [Dexilant] 60 mg PO DAILY 08/30/20 [History] buPROPion HCL [Wellbutrin Xl] 150 mg PO DAILY 08/30/20 [History] Hydrocortisone [Hydrocortisone 2.5% Crm] 1 applic TOP BID PRN 09/29/20 [History] Insulin Glarg,Human.Rec.Analog [Lantus] 30 unit SUBCUT BEDTIME 09/29/20 [History] QUEtiapine [SEROquel] 1 - 2 tab PO BEDTIME PRN 09/29/20 [History] Past Medical History HEENT History: Reports: Impaired Vision Cardiovascular History: Reports: Blood Clots/VTE/DVT, Hypertension, Other (See Below) Other Cardiovascular History: blood clot R leg Respiratory History: Reports: Other (See Below) Other Respiratory History: hx of acute respiratory failure Gastrointestinal History: Reports: Irritable Bowel Syndrome, PUD Other Gastrointestinal History: acid reflux Genitourinary History: Reports: Urinary Incontinence, Other (See Below) Other Genitourinary History: hx of UTI, hx of acute kidney injury 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: Musculoskeletal History: Reports: Other (See Below) Other Musculoskeletal History: right foot drop Neurological History: Reports: Neuropathy, Diabetic Psychiatric History: Reports: Addiction, Anxiety, Bipolar, Depression, Psych Hospitalization(s), PTSD, Other (See Below) Other Psychiatric History: chronic narcotic use Endocrine/Metabolic History: Reports: Diabetes, Type I, Other (See Below) Other Endocrine/Metabolic History: 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, hx of ketoacidosis Hematologic History: Reports: Sickle Cell Anemia - Infectious Disease History Infectious Disease History: Reports: C-Difficile, MRSA - Past Surgical History HEENT Surgical History: Reports: Adenoidectomy, Tonsillectomy, Other (See Below) Other HEENT Surgeries/Procedures: nasal surgery GI Surgical History: Reports: Cholecystectomy, Other (See Below) Other GI Surgeries/Procedures: Esophagus/ stomach repair Musculoskeletal Surgical History: Reports: Hip Replacement, Other (See Below) Other Musculoskeletal Surgeries/Procedures:: hx of carpal tunnel repair Social & Family History - Family History Family Medical History: No Pertinent Family History Other Psychiatric Family History: 2 brothers with substance abuse problems[ Endocrine/Metabolic: Reports: Diabetes, type II - Caffeine Use Caffeine Use: Reports: Coffee, Energy Drinks, Soda Caffeine Use Comment: patient is lethargic to answer questions - Recreational Drug Use Recreational Drug Use: Yes Drug Use in Last 12 Months: Yes Recreational Drug Type: Reports: Methamphetamine Recreational Drug Use Frequency: Not Used In Over 4 Months - Living Situation & Occupation Living situation: Reports: Occupation: Employed (has 2 children which she shares with jerry, mother has been living with her while she convalesces from DKA and mentla health issues. lizeth at [facility]) ED ROS GENERAL - Review of Systems Review Of Systems: Comprehensive ROS is negative, except as noted in HPI. ED EXAM, GENERAL - Physical Exam Exam: See Below Exam Limited By: No Limitations Neurological: Alert, Oriented, CN II-XII Intact, Normal Cognition, Normal Reflexes, No Motor/Sensory Deficits Psychiatric: Tearful, Other (denies suicidal or homicidal ideation) Course - Vital Signs Last Recorded V/S: Last Vital Signs Temp 37.1 C 03/22/21 23:10 Pulse 106 H 03/22/21 23:10 Resp 15 03/22/21 23:10 BP 160/97 H 03/22/21 23:10 Pulse Ox 97 03/22/21 23:10 Departure - Departure Time of Disposition: 00:00 Disposition: Home, Self-Care 01 Clinical Impression: Psychological assessment - Discharge Information Referrals: Yara Lora, [Primary Care Provider] - Forms: ED Department Discharge Additional Instructions: Return to ER or call if you feel you are a threat to yourself or someone else. You can call the ER at any time if you have questions. The number for the crisis line is [phone]. Sepsis Event Note (ED) - Evaluation Sepsis Screening Result: No Definite Risk - Focused Exam Vital Signs: Vital Signs Temp Pulse Resp BP Pulse Ox 03/22/21 23:10 37.1 C 106 H 15 160/97 H 97 - Problem List Review Problem List Initiated/Reviewed/Updated: Yes - Assessment/Plan Plan: Pt. affirmed several times that she is not actively suicidal and has no plans to harm herself. She is alert to time, date, and place and wishes to be discharged home. Was given an invitation to return or call at any time. Pt. was also given the number to the crisis center. Advised to follow-up in clinic in 1 week.
== END 2021-03-22 23:19 | disposition home or self-care (01) ==
LOC: VM.ED 22:52
DX: F28 Other psychotic disorder not due to a substance or known physiological condition (principal); I10 Essential (primary) hypertension; E10.40 Type 1 diabetes mellitus with diabetic neuropathy, unspecified; Z79.899 Other long term (current) drug therapy; Z88.8 Allergy status to other drugs, medicaments and biological substances
CPT/HCPCS: 99283; 99284

== ENCOUNTER 2021-03-25 21:53 | Emergency (ER) | payer MEDICAID ==
[2021-03-25] MEDS ORDERED: Lactated Ringers 1,000 ML IV ONE (22:06)
[2021-03-25] MEDS ORDERED: Sodium Chloride 0.9% 10 ML Syringe FLUSH PRN (22:06)
[2021-03-25 22:49] LABS: CHLORIDE,CL 98 mmol/L (98-107); SODIUM,NA 131 mmol/L (136-145)
[2021-03-25 22:51] LABS: ANION GAP 12.8 mmol/L (5-15)
[2021-03-25 23:18] LABS: MARIJUANA,URINE NEGATIVE (NEGATIVE); METHYLENEDIOXYMETHAMP,UR NEGATIVE (NEGATIVE); PHENCYCLIDINE,URINE NEGATIVE (NEGATIVE)
[2021-03-25 23:23] LABS: BUPRENORPHINE,URINE POSITIVE (NEGATIVE)
[2021-03-25] MEDS ORDERED: 50% Dextrose in Water 50 ML Syringe IVPUSH PRN (23:27)
[2021-03-25] MEDS ORDERED: Insulin Lispro 100 Units/ML 3 ML Vial SUBCUT ONE ×2 (23:27→23:37)
[2021-03-25] MEDS: Insulin Glarg,Human.Rec.Analog 100 Unit/ML SUBCUT STA ×2 (23:32→23:39)
[2021-03-25] MEDS ORDERED: Glucagon,Human Recombinant 1 MG Vial IM PRN (23:37)
--- NOTE | 2021-03-25 23:37 | EDM.PDOC ---
ED HPI GENERAL MEDICAL PROBLEM - General Chief Complaint: Abdominal Pain Stated Complaint: Abdominal Pain / Anxiety Time Seen by Provider: 03/25/21 21:56 Source of Information: Reports: Patient, EMS, EMS Notes Reviewed - History of Present Illness INITIAL COMMENTS - FREE TEXT/NARRATIVE: Siobhan is a 40 y/o female who is brought to the ER by EMS with abdominal pain. Patient was crying and rolling around on cart for EMS. She reports that the pain started this evening and that today she started to have several loose stools. She recently had CDiff and is worried it is returning. Other than that on arri teddy she is crying and will not answer many questions for staff. - Related Data Allergies Allergy/AdvReac Type Severity Reaction Status Date / Time ibuprofen AdvReac Stomach Verified 03/25/21 23:24 Upset Home Meds: Home Meds atorvaSTATin [Lipitor] 10 mg PO BEDTIME 07/09/17 [History] Acetaminophen [Tylenol Extra Strength] 1,000 mg PO TID 04/25/18 [History] Insulin Lispro [Humalog] 4 - 10 unit SUBCUT TIDMEALS 09/18/18 [History] PARoxetine [Paxil] 60 mg PO DAILY 02/04/19 [History] glucagon HCL [Glucagon HCl] 1 mg IM ASDIRECTED PRN 02/04/19 [History] Lidocaine 2% [Xylocaine 2% Jelly] 1 dose TP DAILY PRN 12/24/19 [History] Dextrose [Glucose] 16 gm PO ASDIRECTED PRN 04/05/20 [History] Promethazine [Phenergan] 12.5 mg PO QID PRN 04/05/20 [History] rOPINIRole [Requip] 0.5 mg PO BEDTIME 04/05/20 [History] risperiDONE 3 mg PO BEDTIME 04/05/20 [History] Buprenorphine/Naloxone [Buprenorphine-Naloxone 8 MG-2 MG] 1 tab SL TID 05/27/20 [History] Diphenhyd/Lidocaine/Nystatin [Magic Mouthwash] 30 ml SSPIT TID PRN 05/27/20 [History] Gabapentin [Neurontin] 800 mg PO TID 05/27/20 [History] Sucralfate [Carafate] 1 gm PO QID PRN 05/27/20 [History] Dexlansoprazole [Dexilant] 60 mg PO DAILY 08/30/20 [History] buPROPion HCL [Wellbutrin Xl] 150 mg PO DAILY 08/30/20 [History] Hydrocortisone [Hydrocortisone 2.5% Crm] 1 applic TOP BID PRN 09/29/20 [History] Insulin Glarg,Human.Rec.Analog [Lantus] 30 unit SUBCUT BEDTIME 09/29/20 [History] QUEtiapine [SEROquel] 1 - 2 tab PO BEDTIME PRN 09/29/20 [History] Past Medical History HEENT History: Reports: Impaired Vision Cardiovascular History: Reports: Blood Clots/VTE/DVT, Hypertension, Other (See Below) Other Cardiovascular History: blood clot R leg Respiratory History: Reports: Other (See Below) Other Respiratory History: hx of acute respiratory failure Gastrointestinal History: Reports: Irritable Bowel Syndrome, PUD Other Gastrointestinal History: acid reflux Genitourinary History: Reports: Urinary Incontinence, Other (See Below) Other Genitourinary History: hx of UTI, hx of acute kidney injury 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: Musculoskeletal History: Reports: Other (See Below) Other Musculoskeletal History: right foot drop Neurological History: Reports: Neuropathy, Diabetic Psychiatric History: Reports: Addiction, Anxiety, Bipolar, Depression, Psych Hospitalization(s), PTSD, Other (See Below) Other Psychiatric History: chronic narcotic use Endocrine/Metabolic History: Reports: Diabetes, Type I, Other (See Below) Other Endocrine/Metabolic History: 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, hx of ketoacidosis Hematologic History: Reports: Sickle Cell Anemia - Infectious Disease History Infectious Disease History: Reports: C-Difficile, MRSA - Past Surgical History HEENT Surgical History: Reports: Adenoidectomy, Tonsillectomy, Other (See Below) Other HEENT Surgeries/Procedures: nasal surgery GI Surgical History: Reports: Cholecystectomy, Other (See Below) Other GI Surgeries/Procedures: Esophagus/ stomach repair Musculoskeletal Surgical History: Reports: Hip Replacement, Other (See Below) Other Musculoskeletal Surgeries/Procedures:: hx of carpal tunnel repair Social & Family History - Family History Family Medical History: No Pertinent Family History Other Psychiatric Family History: 2 brothers with substance abuse problems[ Endocrine/Metabolic: Reports: Diabetes, type II - Caffeine Use Caffeine Use: Reports: Coffee, Energy Drinks, Soda Caffeine Use Comment: patient is lethargic to answer questions - Living Situation & Occupation Living situation: Reports: Occupation: Employed (has 2 children which she shares with jerry, mother has been living with her while she convalesces from DKA and mentla health issues. lizeth at [facility]) Review of Systems - Review of Systems Review Of Systems: See Below Constitutional: Reports: No Symptoms Eyes: Reports: No Symptoms Ears: Reports: No Symptoms Nose: Reports: No Symptoms Mouth/Throat: Reports: No Symptoms Respiratory: Reports: No Symptoms Cardiovascular: Reports: No Symptoms GI/Abdominal: Reports: Abdominal Pain, Diarrhea Genitourinary: Reports: No Symptoms Musculoskeletal: Reports: No Symptoms Skin: Reports: No Symptoms Neurological: Reports: No Symptoms Psychiatric: Reports: Anxiety ED EXAM, GENERAL - Physical Exam Exam: See Below General Appearance: Alert, WD/WN, Anxious (Adult female, thrashing around on ER cart amd crying.), Other Ears: Hearing Grossly Normal Nose: Normal Inspection, Normal Mucosa Throat/Mouth: Normal Inspection, Normal Lips, Normal Voice Head: Atraumatic, Normocephalic Neck: Supple Respiratory/Chest: No Respiratory Distress, Lungs Clear, Chest Non-Tender Cardiovascular: Normal Peripheral Pulses, Regular Rate, Rhythm GI/Abdominal: Normal Bowel Sounds, Soft (Female) Exam: Deferred Rectal (Female) Exam: Deferred Back Exam: Normal Inspection Extremities: Other (Note right BKA) Neurological: Alert, Oriented, CN II-XII Intact, Normal Cognition, No Motor/Sensory Deficits Psychiatric: Anxious, Tearful Skin Exam: Warm, Intact, Normal Color, Other (Tacky) Course - Vital Signs Text/Narrative:: 2155 The patient was seen by the 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 Labs ordered. She was given a liter of LR. She was then allowed to rest and relax. 2310 Lab reviewed. CBC neg, CMP fuhgpvg=499, Qxpsme=151; Mg=1.7, AST=65, ALT=83; Lactic Acid=2.2; UDS=+bupenorphine (expected), UA nqbxxcc=956, Ketones=15. ETOH=<3. 2330 Lantus 22units Q given along with Lispro 15units SQ for extra coverage. 2355 Blood sugar rechecked, trending down. Patient feeling better after IV fluids. She was given written instructions and left the ER in stable condition. - Orders/Labs/Meds Orders: Active Orders 24 hr Category Date Time Status Dextrose 50% in Water Med 03/25/21 23:27 Active 50 ml IVPUSH ASDIRECTED PRN Glucagon,Human Recombinant [GlucaGen] Med 03/25/21 23:37 Ordered 1 mg IM ASDIRECTED PRN Insulin Lispro [HumaLOG] Med 03/25/21 23:37 Stop Req 15 unit SUBCUT ONETIME ONE Sodium Chloride 0.9% [Saline Flush] Med 03/25/21 22:06 Active 10 ml FLUSH ASDIRECTED PRN Saline Lock Insert [OM.PC] Stat Ot 03/25/21 22:05 Ordered Medication Orders Dextrose/Water (50% Dextrose In Water 50 Ml Syringe) 50 ml IVPUSH ASDIRECTED PRN PRN Reason: Hypoglycemia Glucagon (Glucagon,Human Recombinant 1 Mg Vial) 1 mg IM ASDIRECTED PRN PRN Reason: Hypoglycemia Sodium Chloride (Sodium Chloride 0.9% 10 Ml Syringe) 10 ml FLUSH ASDIRECTED PRN PRN Reason: Keep Vein Open Labs: Laboratory Tests 03/25/21 03/25/21 03/25/21 Range/Units 22:08 22:16 22:16 WBC 5.6 (4.0-10.0) x10^3/uL RBC 5.10 (4.00-5.50) x10^6/uL Hgb 14.8 (12.0-16.0) g/dL Hct 40.8 (33.0-47.0) % MCV 80.0 D (78.0-93.0) fL MCH 29.0 (26.0-32.0) pg MCHC 36.3 H (32.0-36.0) g/dL RDW Coeff of Roderick 14.0 (10.0-15.0) % Plt Count 234 D (130-400) x10^3/uL Neut % (Auto) 58.1 (50.0-80.0) % Lymph % (Auto) 30.4 (25.0-50.0) % [place] % (Auto) 5.0 (2.0-11.0) % Eos % (Auto) 5.4 H (0.0-4.0) % Baso % (Auto) 1.1 (0.2-1.2) % Sodium 131 L (136-145) mmol/L Potassium 4.8 (3.5-5.1) mmol/L Chloride 98 (98-107) mmol/L Carbon Dioxide 25 D (21-32) mmol/L Anion Gap 12.8 (5-15) mmol/L BUN 11 (7-18) mg/dL Creatinine 0.8 (0.55-1.02) mg/dL Est Cr Clr Drug Dosing TNP Estimated GFR (MDRD) > 60 Glucose 533 H* (70-99) mg/dL POC Glucose 473 H* (70-99) mg/dL Lactic Acid (0.4-2.0) mmol/L Calcium 8.5 (8.5-10.1) mg/dL Corrected Calcium 8.9 (8.5-10.1) mg/dL Magnesium 1.7 L (1.8-2.4) mg/dL Total Bilirubin 0.5 (0.2-1.0) mg/dL AST 65 H (15-37) U/L ALT 83 H (14-59) U/L Alkaline Phosphatase 144 H (46-116) U/L C-Reactive Protein < 0.2 (<=0.9) mg/dL Total Protein 6.9 (6.4-8.2) g/dL Albumin 3.5 (3.4-5.0) g/dL Globulin 3.4 Albumin/Globulin Ratio 1.03 Urine Color (YELLOW) Urine Appearance (CLEAR) Urine pH (5.0-8.0) Ur Specific [place] Urine Protein (NEGATIVE) mg/dL Urine Glucose (UA) (NEGATIVE) mg/dL Urine Ketones (NEGATIVE) mg/dL Urine Occult Blood (NEGATIVE) Urine Nitrite (NEGATIVE) Urine Bilirubin (NEGATIVE) Urine Urobilinogen (0.2) EU/dL Ur Leukocyte Esterase (NEGATIVE) Urine RBC (NOT SEEN) /HPF Urine WBC (NOT SEEN) /HPF Ur Squamous Epith Cells (NOT SEEN) /HPF Urine Bacteria (NOT SEEN) /HPF Urine Mucus (NOT SEEN) /LPF Urine Opiates Screen (NEGATIVE) Ur Buprenorphine Scrn (NEGATIVE) Ur Oxycodone Screen (NEGATIVE) Urine Methadone Screen (NEGATIVE) Ur Barbituates Screen (NEGATIVE) Ur Phencyclidine Scrn (NEGATIVE) Ur Amphetamines Screen (NEGATIVE) U Methamphetamines Scrn (NEGATIVE) Urine MDMA Screen (NEGATIVE) U Benzodiazepines Scrn (NEGATIVE) Urine Cocaine Screen (NEGATIVE) U Marijuana (THC) Screen (NEGATIVE) Ethyl Alcohol < 3 (0-3) mg/dL 03/25/21 03/25/21 03/25/21 Range/Units 22:16 23:16 23:16 WBC (4.0-10.0) x10^3/uL RBC (4.00-5.50) x10^6/uL Hgb (12.0-16.0) g/dL Hct (33.0-47.0) % MCV (78.0-93.0) fL MCH (26.0-32.0) pg MCHC (32.0-36.0) g/dL RDW Coeff of Roderick (10.0-15.0) % Plt Count (130-400) x10^3/uL Neut % (Auto) (50.0-80.0) % Lymph % (Auto) (25.0-50.0) % [place] % (Auto) (2.0-11.0) % Eos % (Auto) (0.0-4.0) % Baso % (Auto) (0.2-1.2) % Sodium (136-145) mmol/L Potassium (3.5-5.1) mmol/L Chloride (98-107) mmol/L Carbon Dioxide (21-32) mmol/L Anion Gap (5-15) mmol/L BUN (7-18) mg/dL Creatinine (0.55-1.02) mg/dL Est Cr Clr Drug Dosing Estimated GFR (MDRD) Glucose (70-99) mg/dL POC Glucose (70-99) mg/dL Lactic Acid 2.2 H* (0.4-2.0) mmol/L Calcium (8.5-10.1) mg/dL Corrected Calcium (8.5-10.1) mg/dL Magnesium (1.8-2.4) mg/dL Total Bilirubin (0.2-1.0) mg/dL AST (15-37) U/L ALT (14-59) U/L Alkaline Phosphatase (46-116) U/L C-Reactive Protein (<=0.9) mg/dL Total Protein (6.4-8.2) g/dL Albumin (3.4-5.0) g/dL Globulin Albumin/Globulin Ratio Urine Color Yellow (YELLOW) Urine Appearance Clear (CLEAR) Urine pH 7.5 (5.0-8.0) Ur Specific [place] 1.020 Urine Protein Negative (NEGATIVE) mg/dL Urine Glucose (UA) 500 H (NEGATIVE) mg/dL Urine Ketones 15 H (NEGATIVE) mg/dL Urine Occult Blood Small H (NEGATIVE) Urine Nitrite Negative (NEGATIVE) Urine Bilirubin Negative (NEGATIVE) Urine Urobilinogen 1.0 (0.2) EU/dL Ur Leukocyte Esterase Negative (NEGATIVE) Urine RBC 0-5 (NOT SEEN) /HPF Urine WBC 0-5 (NOT SEEN) /HPF Ur Squamous Epith Cells Rare (NOT SEEN) /HPF Urine Bacteria Rare (NOT SEEN) /HPF Urine Mucus Not seen (NOT SEEN) /LPF Urine Opiates Screen Negative (NEGATIVE) Ur Buprenorphine Scrn Positive H (NEGATIVE) Ur Oxycodone Screen Negative (NEGATIVE) Urine Methadone Screen Negative (NEGATIVE) Ur Barbituates Screen Negative (NEGATIVE) Ur Phencyclidine Scrn Negative (NEGATIVE) Ur Amphetamines Screen Negative (NEGATIVE) U Methamphetamines Scrn Negative (NEGATIVE) Urine MDMA Screen Negative (NEGATIVE) U Benzodiazepines Scrn Negative (NEGATIVE) Urine Cocaine Screen Negative (NEGATIVE) U Marijuana (THC) Screen Negative (NEGATIVE) Ethyl Alcohol (0-3) mg/dL Meds: Medications Generic Name Dose Route Start Last Admin Trade Name Freq PRN Reason Stop Dose Admin Dextrose/Water 50 ml 03/25/21 23:27 50% Dextrose In Water 50 Ml Syringe IVPUSH ASDIRECTED PRN Hypoglycemia Glucagon 1 mg 03/25/21 23:37 Glucagon,Human Recombinant 1 Mg Vial IM ASDIRECTED PRN Hypoglycemia Sodium Chloride 10 ml 03/25/21 22:06 Sodium Chloride 0.9% 10 Ml Syringe FLUSH ASDIRECTED PRN Keep Vein Open Discontinued Medications Generic Name Dose Route Start Last Admin Trade Name Freq PRN Reason Stop Dose Admin Lactated Ringer's 1,000 mls @ 999 mls/hr 03/25/21 22:06 03/25/21 22:42 Ringers, Lactated IV 03/25/21 23:06 999 mls/hr ONETIME ONE Administration Insulin Glargine 22 unit 03/25/21 23:25 03/25/21 23:39 Insulin Glarg,Human.Rec.Analog 100 Unit/Ml SUBCUT 03/25/21 23:26 22 units NOW STA Administration Insulin Human Lispro 15 unit 03/25/21 23:27 03/25/21 23:45 Insulin Lispro 100 Units/Ml 3 Ml Vial SUBCUT 03/25/21 23:28 Not Given ONETIME ONE Insulin Human Lispro 15 unit 03/25/21 23:37 03/25/21 23:44 Insulin Lispro 100 Units/Ml 3 Ml Vial SUBCUT 03/25/21 23:38 15 units ONETIME ONE Administration Departure - Departure Time of Disposition: 00:03 Disposition: Home, Self-Care 01 Condition: Good Clinical Impression: Abdominal pain Qualifiers: Abdominal location: unspecified location Qualified Code(s): R10.9 - Unspecified abdominal pain Hyperglycemia due to type 2 diabetes mellitus Qualifiers: Diabetes mellitus intermediate designer insulin use: with usp use Qualified Code(s): E11.65 - Type 2 diabetes mellitus with hyperglycemia - Discharge Information Instructions: Abdominal Pain, Adult, Hyperglycemia, [id number] Referrals: Yara Lora, DO [Primary Care Provider] - Forms: ED Department Discharge Additional Instructions: -Resume home meds as prescribed by PCP -Keep appt with Dr Yara Lora tomorrow at the [facility] -Return as needed to the ER - My Orders Last 24 Hours: My Active Orders 03/25/21 22:05 Saline Lock Insert [OM.PC] Stat 03/25/21 22:06 Sodium Chloride 0.9% [Saline Flush] 10 ml FLUSH ASDIRECTED PRN 03/25/21 23:27 Dextrose 50% in Water 50 ml IVPUSH ASDIRECTED PRN 03/25/21 23:37 Glucagon,Human Recombinant [GlucaGen] 1 mg IM ASDIRECTED PRN Insulin Lispro [HumaLOG] 15 unit SUBCUT ONETIME ONE - Assessment/Plan Last 24 Hours: My Active Orders 03/25/21 22:05 Saline Lock Insert [OM.PC] Stat 03/25/21 22:06 Sodium Chloride 0.9% [Saline Flush] 10 ml FLUSH ASDIRECTED PRN 03/25/21 23:27 Dextrose 50% in Water 50 ml IVPUSH ASDIRECTED PRN 03/25/21 23:37 Glucagon,Human Recombinant [GlucaGen] 1 mg IM ASDIRECTED PRN Insulin Lispro [HumaLOG] 15 unit SUBCUT ONETIME ONE Assessment:: 1)Hyperglycemia 2)Type 2 DM 3)Abdominal Pain, Resolved Plan: As above
[2021-03-26 01:02] VITALS: BP 112/59; PULSE 82
== END 2021-03-26 00:20 | disposition home or self-care (01) ==
LOC: VM.ED 21:53
DX: R10.9 Unspecified abdominal pain (principal); E11.65 Type 2 diabetes mellitus with hyperglycemia; I10 Essential (primary) hypertension; E11.10 Type 2 diabetes mellitus with ketoacidosis without coma; Z79.4 Long term (current) use of insulin; Z88.8 Allergy status to other drugs, medicaments and biological substances; Z79.899 Other long term (current) drug therapy
CPT/HCPCS: 80053; 80305-QW; 80307; 81001; 82947; 83605; 83735; 85025; 86140; 99284; J1815-GY; J7120

== ENCOUNTER 2021-04-17 14:19 | Emergency (ER) | payer MEDICAID ==
[2021-04-17] MEDS ORDERED: 50% Dextrose in Water 50 ML Syringe IV PRN (14:48)
[2021-04-17] MEDS ORDERED: 50% Dextrose in Water 50 ML Syringe ONE (14:59)
[2021-04-17] MEDS ORDERED: Dextrose 5%-0.9% NaCl 1,000 ML IV SCH (15:00)
[2021-04-17 15:08] VITALS: BP 139/72; PULSE 122
[2021-04-17 15:31] LABS: BARBITURATE SCREEN,URINE NEGATIVE (NEGATIVE); BENZODIAZEPINES SCREEN,URINE NEGATIVE (NEGATIVE); BUPRENORPHINE SCREEN,URINE POSITIVE (NEGATIVE)
[2021-04-17 15:32] LABS: METHAMPHETAMINE SCREEN, URINE POSITIVE (NEGATIVE); THC SCREEN,URINE 50 NG/ML POSITIVE (NEGATIVE)
[2021-04-17 15:44] LABS: ANION GAP 16.3 mmol/L (5-15); CHLORIDE,CL 101 mmol/L (98-107); SODIUM,NA 142 mmol/L (136-145)
--- NOTE | 2021-04-17 15:56 | EDM.PDOC ---
ED HPI GENERAL MEDICAL PROBLEM - General Chief Complaint: General Stated Complaint: altered mental status Time Seen by Provider: 04/17/21 14:20 Source of Information: Reports: Police History Limitations: Reports: Altered Mental Status - History of Present Illness INITIAL COMMENTS - FREE TEXT/NARRATIVE: Siobhan is a 40 year old female who presents to ER with local police after she was found in her vehicle after colliding with a barricade. The police stated she had hit the barricade and had try to divert from that area but got hung up. Was initially going to be brought here for a urine drug screen but became more confused, started noting "foaming at the mouth" and extra mouth movements and felt it became more of a medical concern. Patient is alert, sweating profusely, and does not answer questions appropriately. Well known history of diabetes with both hyper and hypoglycemia. Also has history of meth use. Drug paraphernalia was found in the vehicle. Onset: Today, Sudden Duration: Minutes:, Getting Worse Location: Reports: Generalized Associated Symptoms: Reports: Confusion. Denies: Chest Pain, Fever/Chills, Headaches, Loss of Appetite, Nausea/Vomiting, Shortness of Breath - Related Data Allergies Allergy/AdvReac Type Severity Reaction Status Date / Time ibuprofen AdvReac Stomach Verified 04/17/21 16:13 Upset Home Meds: Home Meds atorvaSTATin [Lipitor] 10 mg PO BEDTIME 07/09/17 [History] Acetaminophen [Tylenol Extra Strength] 1,000 mg PO TID 04/25/18 [History] Insulin Lispro [Humalog] 4 - 10 unit SUBCUT TIDMEALS 09/18/18 [History] PARoxetine [Paxil] 60 mg PO DAILY 02/04/19 [History] glucagon HCL [Glucagon HCl] 1 mg IM ASDIRECTED PRN 02/04/19 [History] Lidocaine 2% [Xylocaine 2% Jelly] 1 dose TP DAILY PRN 12/24/19 [History] Dextrose [Glucose] 16 gm PO ASDIRECTED PRN 04/05/20 [History] Promethazine [Phenergan] 12.5 mg PO QID PRN 04/05/20 [History] rOPINIRole [Requip] 0.5 mg PO BEDTIME 04/05/20 [History] risperiDONE 3 mg PO BEDTIME 04/05/20 [History] Buprenorphine/Naloxone [Buprenorphine-Naloxone 8 MG-2 MG] 1 tab SL TID 05/27/20 [History] Diphenhyd/Lidocaine/Nystatin [Magic Mouthwash] 30 ml SSPIT TID PRN 05/27/20 [History] Gabapentin [Neurontin] 800 mg PO TID 05/27/20 [History] Sucralfate [Carafate] 1 gm PO QID PRN 05/27/20 [History] Dexlansoprazole [Dexilant] 60 mg PO DAILY 08/30/20 [History] buPROPion HCL [Wellbutrin Xl] 150 mg PO DAILY 08/30/20 [History] Hydrocortisone [Hydrocortisone 2.5% Crm] 1 applic TOP BID PRN 09/29/20 [History] Insulin Glarg,Human.Rec.Analog [Lantus] 30 unit SUBCUT BEDTIME 09/29/20 [History] QUEtiapine [SEROquel] 1 - 2 tab PO BEDTIME PRN 09/29/20 [History] Past Medical History HEENT History: Reports: Impaired Vision Cardiovascular History: Reports: Blood Clots/VTE/DVT, Hypertension, Other (See Below) Other Cardiovascular History: blood clot R leg Respiratory History: Reports: Other (See Below) Other Respiratory History: hx of acute respiratory failure Gastrointestinal History: Reports: Irritable Bowel Syndrome, PUD Other Gastrointestinal History: acid reflux Genitourinary History: Reports: Urinary Incontinence, Other (See Below) Other Genitourinary History: hx of UTI, hx of acute kidney injury PERFORMING [employer] History: Reports: Musculoskeletal History: Reports: Other (See Below) Other Musculoskeletal History: right foot drop Neurological History: Reports: Neuropathy, Diabetic Psychiatric History: Reports: Addiction, Anxiety, Bipolar, Depression, Psych Hospitalization(s), PTSD, Other (See Below) Other Psychiatric History: chronic narcotic use Endocrine/Metabolic History: Reports: Diabetes, Type I, Other (See Below) Other Endocrine/Metabolic History: 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, hx of ketoacidosis Hematologic History: Reports: Sickle Cell Anemia - Infectious Disease History Infectious Disease History: Reports: C-Difficile, MRSA - Past Surgical History HEENT Surgical History: Reports: Adenoidectomy, Tonsillectomy, Other (See Below) Other HEENT Surgeries/Procedures: nasal surgery GI Surgical History: Reports: Cholecystectomy, Other (See Below) Other GI Surgeries/Procedures: Esophagus/ stomach repair Musculoskeletal Surgical History: Reports: Hip Replacement, Other (See Below) Other Musculoskeletal Surgeries/Procedures:: hx of carpal tunnel repair Social & Family History - Family History Family Medical History: No Pertinent Family History Other Psychiatric Family History: 2 brothers with substance abuse problems[ Endocrine/Metabolic: Reports: Diabetes, type II - Tobacco Use Tobacco Use Status *Q: Unknown Ever Used Tobacco - Caffeine Use Caffeine Use: Reports: Coffee, Energy Drinks, Soda Caffeine Use Comment: patient is lethargic to answer questions - Recreational Drug Use Recreational Drug Type: Reports: Marijuana/Hashish, Methamphetamine - Living Situation & Occupation Living situation: Reports: Occupation: Employed (has 2 children which she shares with jerry, mother has been living with her while she convalesces from DKA and mentla health issues. lizeth at [facility]) ED ROS GENERAL - Review of Systems Review Of Systems: See Below Constitutional: Reports: Chills, Malaise, Weakness, Diaphoresis. Denies: Fever HEENT: Denies: Ear Pain, Rhinitis, Throat Pain, Vertigo Respiratory: Denies: Shortness of Breath Cardiovascular: Denies: Chest Pain, Lightheadedness Endocrine: Reports: Fatigue GI/Abdominal: Denies: Abdominal Pain, Nausea, Vomiting : Reports: Incontinence Musculoskeletal: Reports: No Symptoms Skin: Reports: Diaphoresis Neurological: Reports: Confusion ED EXAM, GENERAL - Physical Exam Exam: See Below Exam Limited By: Altered Mental Status General Appearance: Alert Eye Exam: Bilateral Eye: Other (pupils sluggish) Ears: Normal External Exam, Normal TMs Nose: Normal Inspection, Normal Mucosa, No Blood Throat/Mouth: Other (frothy discharge from mouth, extrapyrimadal effects noted with mouth) Head: Normocephalic Neck: Normal Inspection, Supple, Non-Tender Respiratory/Chest: No Respiratory Distress, Lungs Clear, Normal Breath Sounds Cardiovascular: Regular Rate, Rhythm GI/Abdominal: Normal Bowel Sounds, Soft, Non-Tender Extremities: Other (BKA of right leg) Neurological: Alert, Disoriented (oriented to person only on arrival) Psychiatric: Anxious Skin Exam: Diaphoretic, Pallor Course - Vital Signs Last Recorded V/S: Last Vital Signs Temp 96.7 F L 04/17/21 14:23 Pulse 122 H 04/17/21 14:23 Resp 20 04/17/21 14:23 BP 139/72 04/17/21 14:23 Pulse Ox 98 04/17/21 14:23 - Orders/Labs/Meds Orders: Active Orders 24 hr Category Date Time Status Dextrose 5%-0.9% NaCl [Dextrose 5%-Normal Saline] 1,000 Med 04/17/21 15:00 Active ml IV ASDIRECTED Dextrose 50% in Water Med 04/17/21 14:48 Active 50 ml IV ASDIRECTED PRN Medication Orders Dextrose/Water (50% Dextrose In Water 50 Ml Syringe) 50 ml IV ASDIRECTED PRN PRN Reason: Hypoglycemia Last Admin: 04/17/21 14:30 Dose: 50 ml Documented by: CHASTITY Dextrose/Sodium Chloride (Dextrose 5%-Normal Saline) 1,000 mls @ 999 mls/hr IV ASDIRECTED VIVIANA Last Admin: 04/17/21 15:01 Dose: 999 mls/hr Documented by: CHASTITY Labs: Laboratory Tests 04/17/21 04/17/21 04/17/21 Range/Units 14:32 15:10 15:10 WBC 8.3 (4.0-10.0) x10^3/uL RBC 5.23 (4.00-5.50) x10^6/uL Hgb 15.3 (12.0-16.0) g/dL Hct 41.6 (33.0-47.0) % MCV 79.5 (78.0-93.0) fL MCH 29.3 (26.0-32.0) pg MCHC 36.8 H (32.0-36.0) g/dL RDW Coeff of Roderick 13.9 (10.0-15.0) % Plt Count 265 (130-400) x10^3/uL Add Manual Diff Yes Neutrophils % (Manual) 77 (50-80) % Lymphocytes % (Manual) 17 L (25-50) % Monocytes % (Manual) 6 (2-11) % Absolute Neutrophils Instructional Technology Coordinator Lymphocytes # (Manual) Instructional Technology Coordinator Monocytes # (Manual) Instructional Technology Coordinator Platelet Estimate Adequate Sodium 142 D (136-145) mmol/L Potassium 3.3 L D (3.5-5.1) mmol/L Chloride 101 (98-107) mmol/L Carbon Dioxide 28 (21-32) mmol/L Anion Gap 16.3 H (5-15) mmol/L BUN 10 (7-18) mg/dL Creatinine 0.8 (0.55-1.02) mg/dL Est Cr Clr Drug Dosing TNP Estimated GFR (MDRD) > 60 Glucose 109 H (70-99) mg/dL POC Glucose 41 L (70-99) mg/dL Calcium 9.6 (8.5-10.1) mg/dL Corrected Calcium 9.7 (8.5-10.1) mg/dL Total Bilirubin 0.8 (0.2-1.0) mg/dL AST 115 H (15-37) U/L ALT 89 H (14-59) U/L Alkaline Phosphatase 160 H (46-116) U/L C-Reactive Protein 1.1 H (<=0.9) mg/dL Total Protein 7.8 (6.4-8.2) g/dL Albumin 3.9 (3.4-5.0) g/dL Globulin 3.9 Albumin/Globulin Ratio 1.00 Urine Color (YELLOW) Urine Appearance (CLEAR) Urine pH (5.0-8.0) Ur Specific [place] Urine Protein (NEGATIVE) mg/dL Urine Glucose (UA) (NEGATIVE) mg/dL Urine Ketones (NEGATIVE) mg/dL Urine Occult Blood (NEGATIVE) Urine Nitrite (NEGATIVE) Urine Bilirubin (NEGATIVE) Urine Urobilinogen (0.2) EU/dL Ur Leukocyte Esterase (NEGATIVE) Urine RBC (NOT SEEN) /HPF Urine WBC (NOT SEEN) /HPF Ur Squamous Epith Cells (NOT SEEN) /HPF Urine Bacteria (NOT SEEN) /HPF Urine Mucus (NOT SEEN) /LPF Urine Opiates Screen (NEGATIVE) Ur Buprenorphine Scrn (NEGATIVE) Ur Oxycodone Screen (NEGATIVE) Urine Methadone Screen (NEGATIVE) Ur Barbiturates Screen (NEGATIVE) Ur Phencyclidine Scrn (NEGATIVE) Ur Amphetamine Screen (NEGATIVE) U Methamphetamines Scrn (NEGATIVE) Urine MDMA Screen (NEGATIVE) U Benzodiazepines Scrn (NEGATIVE) U Cocaine Metab Screen (NEGATIVE) U Marijuana (THC) Screen (NEGATIVE) 04/17/21 04/17/21 04/17/21 Range/Units 15:20 15:20 15:28 WBC (4.0-10.0) x10^3/uL RBC (4.00-5.50) x10^6/uL Hgb (12.0-16.0) g/dL Hct (33.0-47.0) % MCV (78.0-93.0) fL MCH (26.0-32.0) pg MCHC (32.0-36.0) g/dL RDW Coeff of Roderick (10.0-15.0) % Plt Count (130-400) x10^3/uL Add Manual Diff Neutrophils % (Manual) (50-80) % Lymphocytes % (Manual) (25-50) % Monocytes % (Manual) (2-11) % Absolute Neutrophils Lymphocytes # (Manual) Monocytes # (Manual) Platelet Estimate Sodium (136-145) mmol/L Potassium (3.5-5.1) mmol/L Chloride (98-107) mmol/L Carbon Dioxide (21-32) mmol/L Anion Gap (5-15) mmol/L BUN (7-18) mg/dL Creatinine (0.55-1.02) mg/dL Est Cr Clr Drug Dosing Estimated GFR (MDRD) Glucose (70-99) mg/dL POC Glucose 206 H (70-99) mg/dL Calcium (8.5-10.1) mg/dL Corrected Calcium (8.5-10.1) mg/dL Total Bilirubin (0.2-1.0) mg/dL AST (15-37) U/L ALT (14-59) U/L Alkaline Phosphatase (46-116) U/L C-Reactive Protein (<=0.9) mg/dL Total Protein (6.4-8.2) g/dL Albumin (3.4-5.0) g/dL Globulin Albumin/Globulin Ratio Urine Color Yellow (YELLOW) Urine Appearance Clear (CLEAR) Urine pH 7.5 (5.0-8.0) Ur Specific [place] 1.025 Urine Protein 30 H (NEGATIVE) mg/dL Urine Glucose (UA) Negative (NEGATIVE) mg/dL Urine Ketones 40 H (NEGATIVE) mg/dL Urine Occult Blood Negative (NEGATIVE) Urine Nitrite Negative (NEGATIVE) Urine Bilirubin Negative (NEGATIVE) Urine Urobilinogen 1.0 (0.2) EU/dL Ur Leukocyte Esterase Negative (NEGATIVE) Urine RBC 0-5 (NOT SEEN) /HPF Urine WBC 0-5 (NOT SEEN) /HPF Ur Squamous Epith Cells Rare (NOT SEEN) /HPF Urine Bacteria Rare (NOT SEEN) /HPF Urine Mucus Few H (NOT SEEN) /LPF Urine Opiates Screen Negative (NEGATIVE) Ur Buprenorphine Scrn Positive H (NEGATIVE) Ur Oxycodone Screen Negative (NEGATIVE) Urine Methadone Screen Negative (NEGATIVE) Ur Barbiturates Screen Negative (NEGATIVE) Ur Phencyclidine Scrn Negative (NEGATIVE) Ur Amphetamine Screen Positive H (NEGATIVE) U Methamphetamines Scrn Positive H (NEGATIVE) Urine MDMA Screen Negative (NEGATIVE) U Benzodiazepines Scrn Negative (NEGATIVE) U Cocaine Metab Screen Negative (NEGATIVE) U Marijuana (THC) Screen Positive H (NEGATIVE) Meds: Medications Generic Name Dose Route Start Last Admin Trade Name Freq PRN Reason Stop Dose Admin Dextrose/Water 50 ml 04/17/21 14:48 04/17/21 14:30 50% Dextrose In Water 50 Ml Syringe IV 50 ml ASDIRECTED PRN Administration Hypoglycemia Dextrose/Sodium Chloride 1,000 mls @ 999 mls/hr 04/17/21 15:00 04/17/21 15:01 Dextrose 5%-Normal Saline IV 999 mls/hr ASDIRECTED VIVIANA Administration Discontinued Medications Generic Name Dose Route Start Last Admin Trade Name Freq PRN Reason Stop Dose Admin Dextrose/Water Confirm 04/17/21 14:59 50% Dextrose In Water 50 Ml Syringe Administered 04/17/21 15:00 Dose 50 ml .ROUTE .STK-MED ONE - Re-Assessments/Exams Free Text/Narrative Re-Assessment/Exam: 04/17/21 Blood sugar when checked after arrival. IV initiated and D50 1/2 amp given. Labs drawn. IV fluids started. [id number]-Patient is alert now. Blood sugar 206. Conversing and oriented but is distraught as she realizes the extent of what occurred this afternoon and the violations. Admits to using meth in the last few days and had started using again about a month ago after 8 months of sobriety. Is very concerned about her children. Has been trying to contact her mother without success. Labs are essentially stable. Potassium mildly low at 3.3. Liver enzymes are elevated. Urine drug screen does show suboxone, meth and marijuana. Urine screen was obtained by police as well. See nurses notes. 04/17/21 16:31 Stable. Requesting to be discharged home. Departure - Departure Time of Disposition: 16:31 Disposition: Home, Self-Care 01 Condition: Fair Clinical Impression: Hypoglycemia, Drug abuse and dependence - Discharge Information *PRESCRIPTION DRUG MONITORING PROGRAM REVIEWED*: No *COPY OF PRESCRIPTION DRUG MONITORING REPORT IN PATIENT ISHAN: No Instructions: Preventing Hypoglycemia Referrals: Yara Lora DO [Primary Care Provider] - Additional Instructions: 1. Push fluids 2. Continue to monitor blood sugar with your dexcom and insulin as prescribed. 3. Return if any questions or concerns. Sepsis Event Note (ED) - Focused Exam Vital Signs: Vital Signs Temp Pulse Resp BP Pulse Ox 04/17/21 14:23 96.7 F L 122 H 20 139/72 98 - My Orders Last 24 Hours: My Active Orders 04/17/21 14:48 Dextrose 50% in Water 50 ml IV ASDIRECTED PRN 04/17/21 15:00 Dextrose 5%-0.9% NaCl [Dextrose 5%-Normal Saline] 1,000 ml IV ASDIRECTED - Assessment/Plan Last 24 Hours: My Active Orders 04/17/21 14:48 Dextrose 50% in Water 50 ml IV ASDIRECTED PRN 04/17/21 15:00 Dextrose 5%-0.9% NaCl [Dextrose 5%-Normal Saline] 1,000 ml IV ASDIRECTED
--- NOTE | 2021-04-17 17:50 | PCM.EKG ---
#1 Interpretation EKG Date: 04/17/21 Rhythm: NSR Boss: Normal P-Wave: Present QRS: Normal ST-T: Normal QT: Normal Comparison: No Change
== END 2021-04-17 17:12 | disposition home or self-care (01) ==
LOC: VM.ED 14:19
DX: E10.649 Type 1 diabetes mellitus with hypoglycemia without coma (principal); F15.20 Other stimulant dependence, uncomplicated; F12.20 Cannabis dependence, uncomplicated; I10 Essential (primary) hypertension; K21.9 Gastro-esophageal reflux disease without esophagitis; E10.40 Type 1 diabetes mellitus with diabetic neuropathy, unspecified; Z89.511 Acquired absence of right leg below knee; Z88.6 Allergy status to analgesic agent; Z79.899 Other long term (current) drug therapy
CPT/HCPCS: 36415; 80053; 80305-QW; 81001; 82947; 85025; 86140; 96374; 99284; 99285-25; J7042

== ENCOUNTER 2021-04-20 21:11 | Emergency (ER) | payer MEDICAID ==
[2021-04-20 23:31] LABS: CHLORIDE,CL 99 mmol/L (98-107); SODIUM,NA 133 mmol/L (136-145)
[2021-04-20 23:32] LABS: ANION GAP 11.8 mmol/L (5-15)
[2021-04-20 23:50] LABS: ACETAMINOPHEN 0 ug/ml (10-30)
--- NOTE | 2021-04-20 23:51 | EDM.PDOC ---
ED HPI GENERAL MEDICAL PROBLEM - General Stated Complaint: MENTAL HEALTH Time Seen by Provider: 04/20/21 23:00 Source of Information: Reports: Patient, Police History Limitations: Reports: No Limitations - History of Present Illness INITIAL COMMENTS - FREE TEXT/NARRATIVE: Pt. presents to ER with complaints of suicidal ideation. Pt. has been feeling like this for about a week. She states that she called [facility] and they told her to come to the ER to be medically cleared to and to arrange for admission. Pt. has been under a lot of stress recently. Her father recently of covid pneumonia. She has a longstanding history of bipolar, and is on seroquel, paxil, and klonopin. Denies any previous history of suicide attempt in the past. When asked if she has a plan, she states that she would overdose on her pills. Pt. 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 Pt. has been seen in this facility several times within the past 2 years in DKA, severe metabolic acidosis and respiratory failure requiring intubation. Pt. states that she has been "clear" of meth and street drugs for 8 months, and overall is doing much better, since she isn't coming into the ER as frequently in extremis. She has an underlying history of opiate abuse in the past as well. She is currently on suboxone. She does not see a psychiatrist, and is currently not seeing a counselor. Pt. other stressors include issues with her children's father who she is fighting with to get custody of her children. Onset: Today Onset Date: 04/21/21 - Related Data Allergies Allergy/AdvReac Type Severity Reaction Status Date / Time ibuprofen AdvReac Stomach Verified 04/17/21 16:13 Upset Home Meds: Home Meds atorvaSTATin [Lipitor] 10 mg PO BEDTIME 07/09/17 [History] Acetaminophen [Tylenol Extra Strength] 1,000 mg PO TID 04/25/18 [History] Insulin Lispro [Humalog] 4 - 10 unit SUBCUT TIDMEALS 09/18/18 [History] PARoxetine [Paxil] 60 mg PO DAILY 02/04/19 [History] glucagon HCL [Glucagon HCl] 1 mg IM ASDIRECTED PRN 02/04/19 [History] Lidocaine 2% [Xylocaine 2% Jelly] 1 dose TP DAILY PRN 12/24/19 [History] Dextrose [Glucose] 16 gm PO ASDIRECTED PRN 04/05/20 [History] Promethazine [Phenergan] 12.5 mg PO QID PRN 04/05/20 [History] rOPINIRole [Requip] 0.5 mg PO BEDTIME 04/05/20 [History] risperiDONE 3 mg PO BEDTIME 04/05/20 [History] Buprenorphine/Naloxone [Buprenorphine-Naloxone 8 MG-2 MG] 1 tab SL TID 05/27/20 [History] Diphenhyd/Lidocaine/Nystatin [Magic Mouthwash] 30 ml SSPIT TID PRN 05/27/20 [History] Gabapentin [Neurontin] 800 mg PO TID 05/27/20 [History] Sucralfate [Carafate] 1 gm PO QID PRN 05/27/20 [History] Dexlansoprazole [Dexilant] 60 mg PO DAILY 08/30/20 [History] buPROPion HCL [Wellbutrin Xl] 150 mg PO DAILY 08/30/20 [History] Hydrocortisone [Hydrocortisone 2.5% Crm] 1 applic TOP BID PRN 09/29/20 [History] Insulin Glarg,Human.Rec.Analog [Lantus] 30 unit SUBCUT BEDTIME 09/29/20 [History] QUEtiapine [SEROquel] 1 - 2 tab PO BEDTIME PRN 09/29/20 [History] Past Medical History HEENT History: Reports: Impaired Vision Cardiovascular History: Reports: Blood Clots/VTE/DVT, Hypertension, Other (See Below) Other Cardiovascular History: blood clot R leg Respiratory History: Reports: Other (See Below) Other Respiratory History: hx of acute respiratory failure Gastrointestinal History: Reports: Irritable Bowel Syndrome, PUD Other Gastrointestinal History: acid reflux Genitourinary History: Reports: Urinary Incontinence, Other (See Below) Other Genitourinary History: hx of UTI, hx of acute kidney injury [employer] 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: Musculoskeletal History: Reports: Other (See Below) Other Musculoskeletal History: right foot drop Neurological History: Reports: Neuropathy, Diabetic Psychiatric History: Reports: Addiction, Anxiety, Bipolar, Depression, Psych Hospitalization(s), PTSD, Other (See Below) Other Psychiatric History: chronic narcotic use Endocrine/Metabolic History: Reports: Diabetes, Type I, Other (See Below) Other Endocrine/Metabolic History: 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, hx of ketoacidosis Hematologic History: Reports: Sickle Cell Anemia - Infectious Disease History Infectious Disease History: Reports: C-Difficile, MRSA - Past Surgical History HEENT Surgical History: Reports: Adenoidectomy, Tonsillectomy, Other (See Below) Other HEENT Surgeries/Procedures: nasal surgery GI Surgical History: Reports: Cholecystectomy, Other (See Below) Other GI Surgeries/Procedures: Esophagus/ stomach repair Musculoskeletal Surgical History: Reports: Hip Replacement, Other (See Below) Other Musculoskeletal Surgeries/Procedures:: hx of carpal tunnel repair Social & Family History - Family History Family Medical History: No Pertinent Family History Other Psychiatric Family History: 2 brothers with substance abuse problems[ Endocrine/Metabolic: Reports: Diabetes, type II - Caffeine Use Caffeine Use: Reports: Coffee, Energy Drinks, Soda Caffeine Use Comment: patient is lethargic to answer questions - Living Situation & Occupation Living situation: Reports: Occupation: Employed (has 2 children which she shares with jerry, mother has been living with her while she convalesces from DKA and mentla health issues. [facility]iz[facility] at [facility]) ED ROS GENERAL - Review of Systems Review Of Systems: See Below Constitutional: Reports: No Symptoms HEENT: Reports: No Symptoms Respiratory: Reports: No Symptoms Cardiovascular: Reports: No Symptoms Endocrine: Reports: No Symptoms GI/Abdominal: Reports: No Symptoms : Reports: No Symptoms Musculoskeletal: Reports: No Symptoms Skin: Reports: No Symptoms Neurological: Reports: No Symptoms Psychiatric: Reports: Anxiety, Depression, Mood Lability, Suicidal Ideation. Denies: Agitation, Confusion, Hallucinations, Homicidal Ideation Hematologic/Lymphatic: Reports: No Symptoms Immunologic: Reports: No Symptoms ED EXAM, GENERAL - Physical Exam Exam: See Below Exam Limited By: No Limitations General Appearance: Alert, WD/WN, No Apparent Distress Eye Exam: Bilateral Eye: EOMI Respiratory/Chest: No Respiratory Distress, Lungs Clear, Normal Breath Sounds, No Accessory Muscle Use, Chest Non-Tender Cardiovascular: Normal Peripheral Pulses, Regular Rate, Rhythm, No Edema, No JVD Peripheral Pulses: 4+: Radial (L) (Female) Exam: Deferred Rectal (Female) Exam: Deferred Back Exam: Normal Inspection, Full Range of Motion Extremities: Normal Inspection, Normal Range of Motion, Non-Tender, No Pedal Edema, Normal Capillary Refill Neurological: Alert, Oriented, CN II-XII Intact, Normal Cognition, Normal Gait, No Motor/Sensory Deficits Psychiatric: Anxious, Depressed Mood, Flat Affect Skin Exam: Warm, Dry, Intact, Normal Color Course - Orders/Labs/Meds Orders: Active Orders 24 hr Category Date Time Status CORONAVIRUS COVID-19 RAPID [MOLEC] Stat Lab 04/21/21 00:12 Received Labs: Laboratory Tests 04/20/21 04/20/21 04/20/21 Range/Units 22:57 22:57 22:57 WBC 5.8 (4.0-10.0) x10^3/uL RBC 4.48 (4.00-5.50) x10^6/uL Hgb 13.0 D (12.0-16.0) g/dL Hct 37.4 (33.0-47.0) % MCV 83.5 D (78.0-93.0) fL MCH 29.0 (26.0-32.0) pg MCHC 34.8 (32.0-36.0) g/dL RDW Coeff of Roderick 13.8 (10.0-15.0) % Plt Count 226 (130-400) x10^3/uL Neut % (Auto) 52.7 (50.0-80.0) % Lymph % (Auto) 33.7 (25.0-50.0) % Clay % (Auto) 6.2 (2.0-11.0) % Eos % (Auto) 6.4 H (0.0-4.0) % Baso % (Auto) 1.0 (0.2-1.2) % PT 10.9 (9.9-12.5) SEC INR 1.0 L (2.0-3.5) APTT (25.6-32.8) SEC Sodium 133 L (136-145) mmol/L Potassium 4.8 D (3.5-5.1) mmol/L Chloride 99 (98-107) mmol/L Carbon Dioxide 27 (21-32) mmol/L Anion Gap 11.8 (5-15) mmol/L BUN 14 (7-18) mg/dL Creatinine 0.8 (0.55-1.02) mg/dL Est Cr Clr Drug Dosing TNP Estimated GFR (MDRD) > 60 Glucose 562 H* (70-99) mg/dL Calcium 8.2 L (8.5-10.1) mg/dL Corrected Calcium 8.9 (8.5-10.1) mg/dL Phosphorus 4.4 (2.6-4.7) mg/dL Magnesium 1.9 (1.8-2.4) mg/dL Total Bilirubin 0.4 (0.2-1.0) mg/dL AST 68 H (15-37) U/L ALT 57 (14-59) U/L Alkaline Phosphatase 134 H (46-116) U/L Total Protein 6.1 L (6.4-8.2) g/dL Albumin 3.1 L (3.4-5.0) g/dL Globulin 3.0 Albumin/Globulin Ratio 1.03 TSH, Ultra Sensitive 0.345 L (0.358-3.74) uIU/mL Urine Opiates Screen (NEGATIVE) Ur Buprenorphine Scrn (NEGATIVE) Ur Oxycodone Screen (NEGATIVE) Urine Methadone Screen (NEGATIVE) Acetaminophen 0 L (10-30) ug/ml Ur Barbiturates Screen (NEGATIVE) Ur Phencyclidine Scrn (NEGATIVE) Ur Amphetamine Screen (NEGATIVE) U Methamphetamines Scrn (NEGATIVE) Urine MDMA Screen (NEGATIVE) U Benzodiazepines Scrn (NEGATIVE) U Cocaine Metab Screen (NEGATIVE) U Marijuana (THC) Screen (NEGATIVE) Ethyl Alcohol < 3 (0-3) mg/dL 04/20/21 04/20/21 Range/Units 22:57 23:55 WBC (4.0-10.0) x10^3/uL RBC (4.00-5.50) x10^6/uL Hgb (12.0-16.0) g/dL Hct (33.0-47.0) % MCV (78.0-93.0) fL MCH (26.0-32.0) pg MCHC (32.0-36.0) g/dL RDW Coeff of Roderick (10.0-15.0) % Plt Count (130-400) x10^3/uL Neut % (Auto) (50.0-80.0) % Lymph % (Auto) (25.0-50.0) % Clay % (Auto) (2.0-11.0) % Eos % (Auto) (0.0-4.0) % Baso % (Auto) (0.2-1.2) % PT (9.9-12.5) SEC INR (2.0-3.5) APTT 24.2 L (25.6-32.8) SEC Sodium (136-145) mmol/L Potassium (3.5-5.1) mmol/L Chloride (98-107) mmol/L Carbon Dioxide (21-32) mmol/L Anion Gap (5-15) mmol/L BUN (7-18) mg/dL Creatinine (0.55-1.02) mg/dL Est Cr Clr Drug Dosing Estimated GFR (MDRD) Glucose (70-99) mg/dL Calcium (8.5-10.1) mg/dL Corrected Calcium (8.5-10.1) mg/dL Phosphorus (2.6-4.7) mg/dL Magnesium (1.8-2.4) mg/dL Total Bilirubin (0.2-1.0) mg/dL AST (15-37) U/L ALT (14-59) U/L Alkaline Phosphatase (46-116) U/L Total Protein (6.4-8.2) g/dL Albumin (3.4-5.0) g/dL Globulin Albumin/Globulin Ratio TSH, Ultra Sensitive (0.358-3.74) uIU/mL Urine Opiates Screen Negative (NEGATIVE) Ur Buprenorphine Scrn Positive H (NEGATIVE) Ur Oxycodone Screen Negative (NEGATIVE) Urine Methadone Screen Negative (NEGATIVE) Acetaminophen (10-30) ug/ml Ur Barbiturates Screen Negative (NEGATIVE) Ur Phencyclidine Scrn Negative (NEGATIVE) Ur Amphetamine Screen Negative (NEGATIVE) U Methamphetamines Scrn Negative (NEGATIVE) Urine MDMA Screen Negative (NEGATIVE) U Benzodiazepines Scrn Negative (NEGATIVE) U Cocaine Metab Screen Negative (NEGATIVE) U Marijuana (THC) Screen Positive H (NEGATIVE) Ethyl Alcohol (0-3) mg/dL Departure - Departure Time of Disposition: 00:27 Disposition: Home, Self-Care 01 Clinical Impression: Depression, Suicidal ideation - Discharge Information Referrals: Yara Lora, [Primary Care Provider] - - Problem List Review Problem List Initiated/Reviewed/Updated: Yes - My Orders Last 24 Hours: My Active Orders 04/21/21 00:12 CORONAVIRUS COVID-19 RAPID [MOLEC] Stat - Assessment/Plan Last 24 Hours: My Active Orders 04/21/21 00:12 CORONAVIRUS COVID-19 RAPID [MOLEC] Stat Plan: [facility]. I spoke with Viktor from needs assessment. They currently do not have any beds available for Siobhan. Discussed this with Siobhan. She contacted for safety and will be going to [facility] tomorrow with her Mom for screening. Mom will stay with the patient tonight. Her only worrisome finding was elevated blood glucose. Unfortunately, this is a very common problem for Siobhan. She had not taken her insulin, and will be working on getting her blood sugar under control tonight.
[2021-04-21 00:08] LABS: BARBITURATE SCREEN,URINE NEGATIVE (NEGATIVE); BENZODIAZEPINES SCREEN,URINE NEGATIVE (NEGATIVE); METHAMPHETAMINE SCREEN, URINE NEGATIVE (NEGATIVE); THC SCREEN,URINE 50 NG/ML POSITIVE (NEGATIVE)
[2021-04-21 00:09] LABS: BUPRENORPHINE SCREEN,URINE POSITIVE (NEGATIVE)
[2021-04-21 08:19] VITALS: BP 118/67; PULSE 67
== END 2021-04-21 00:50 | disposition home or self-care (01) ==
LOC: VM.ED 21:11
DX: F32.9 Major depressive disorder, single episode, unspecified (principal); E10.40 Type 1 diabetes mellitus with diabetic neuropathy, unspecified; I10 Essential (primary) hypertension; Z88.8 Allergy status to other drugs, medicaments and biological substances; Z86.718 Personal history of other venous thrombosis and embolism; Z79.899 Other long term (current) drug therapy; Z20.822 Contact with and (suspected) exposure to COVID-19
CPT/HCPCS: 36415; 80053; 80143; 80305-QW; 80307; 83735; 84100; 84443; 85025; 85610; 85730; 99284; U0002

== ENCOUNTER 2021-06-23 06:23 | Emergency (ER) | payer MEDICAID ==
[2021-06-23 06:31] VITALS: BP 146/94; PULSE 85
[2021-06-23 07:35] LABS: BARBITURATE SCREEN,URINE NEGATIVE (NEGATIVE); BENZODIAZEPINES SCREEN,URINE NEGATIVE (NEGATIVE); BUPRENORPHINE SCREEN,URINE POSITIVE (NEGATIVE); METHAMPHETAMINE SCREEN, URINE NEGATIVE (NEGATIVE); THC SCREEN,URINE 50 NG/ML NEGATIVE (NEGATIVE)
[2021-06-23 07:36] LABS: CHLORIDE,CL 93 mmol/L (98-107)
[2021-06-23 07:42] LABS: ANION GAP 18.4 mmol/L (5-15); SODIUM,NA 129 mmol/L (136-145)
[2021-06-23 07:48] LABS: ACETAMINOPHEN 0 ug/ml (10-30)
[2021-06-23] MEDS ORDERED: Sodium Chloride 0.9% 10 ML Syringe FLUSH PRN (07:56)
--- NOTE | 2021-06-23 07:56 | EDM.PDOC ---
ED HPI GENERAL MEDICAL PROBLEM - General Chief Complaint: General Stated Complaint: several Time Seen by Provider: 06/23/21 07:47 Source of Information: Reports: Patient - History of Present Illness INITIAL COMMENTS - FREE TEXT/NARRATIVE: Siobhan is a 40 y/o female with a long hx of DM who comes to the ER with elevated sugars and muscle aches. She reports taking 10 units of Novolog this AM at about 0630. She has been having aching of her muscles in her legs. Denies other sx. No fevers. reports that she took her Lantus last night. She had recently gotten the COVID vaccine. Apparently also of note is that she is losing he kids today to the court system. Bilateral Leg Pain Score (Numeric/FACES): 4 Middle Head Pain Score (Numeric/FACES): 8 - Related Data Allergies Allergy/AdvReac Type Severity Reaction Status Date / Time ibuprofen AdvReac Stomach Verified 04/17/21 16:13 Upset Home Meds: Home Meds atorvaSTATin [Lipitor] 10 mg PO BEDTIME 07/09/17 [History] Acetaminophen [Tylenol Extra Strength] 1,000 mg PO TID 04/25/18 [History] Insulin Lispro [Humalog] 4 - 10 unit SUBCUT TIDMEALS 09/18/18 [History] PARoxetine [Paxil] 60 mg PO DAILY 02/04/19 [History] glucagon HCL [Glucagon HCl] 1 mg IM ASDIRECTED PRN 02/04/19 [History] Lidocaine 2% [Xylocaine 2% Jelly] 1 dose TP DAILY PRN 12/24/19 [History] Dextrose [Glucose] 16 gm PO ASDIRECTED PRN 04/05/20 [History] Promethazine [Phenergan] 12.5 mg PO QID PRN 04/05/20 [History] rOPINIRole [Requip] 0.5 mg PO BEDTIME 04/05/20 [History] risperiDONE 3 mg PO BEDTIME 04/05/20 [History] Buprenorphine/Naloxone [Buprenorphine-Naloxone 8 MG-2 MG] 1 tab SL TID 05/27/20 [History] Diphenhyd/Lidocaine/Nystatin [Magic Mouthwash] 30 ml SSPIT TID PRN 05/27/20 [History] Gabapentin [Neurontin] 800 mg PO TID 05/27/20 [History] Sucralfate [Carafate] 1 gm PO QID PRN 05/27/20 [History] Dexlansoprazole [Dexilant] 60 mg PO DAILY 08/30/20 [History] buPROPion HCL [Wellbutrin Xl] 150 mg PO DAILY 08/30/20 [History] Hydrocortisone [Hydrocortisone 2.5% Crm] 1 applic TOP BID PRN 09/29/20 [History] Insulin Glarg,Human.Rec.Analog [Lantus] 30 unit SUBCUT BEDTIME 09/29/20 [History] QUEtiapine [SEROquel] 1 - 2 tab PO BEDTIME PRN 09/29/20 [History] Past Medical History HEENT History: Reports: Impaired Vision Cardiovascular History: Reports: Blood Clots/VTE/DVT, Hypertension, Other (See Below) Other Cardiovascular History: blood clot R leg Respiratory History: Reports: Other (See Below) Other Respiratory History: hx of acute respiratory failure Gastrointestinal History: Reports: Irritable Bowel Syndrome, PUD Other Gastrointestinal History: acid reflux Genitourinary History: Reports: Urinary Incontinence, Other (See Below) Other Genitourinary History: hx of UTI, hx of acute kidney injury 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: Musculoskeletal History: Reports: Other (See Below) Other Musculoskeletal History: right foot drop Neurological History: Reports: Neuropathy, Diabetic Psychiatric History: Reports: Addiction, Anxiety, Bipolar, Depression, Psych Hospitalization(s), PTSD, Other (See Below) Other Psychiatric History: chronic narcotic use Endocrine/Metabolic History: Reports: Diabetes, Type I, Other (See Below) Other Endocrine/Metabolic History: 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, hx of ketoacidosis Hematologic History: Reports: Sickle Cell Anemia - Infectious Disease History Infectious Disease History: Reports: C-Difficile, MRSA - Past Surgical History HEENT Surgical History: Reports: Adenoidectomy, Tonsillectomy, Other (See Below) Other HEENT Surgeries/Procedures: nasal surgery GI Surgical History: Reports: Cholecystectomy, Other (See Below) Other GI Surgeries/Procedures: Esophagus/ stomach repair Musculoskeletal Surgical History: Reports: Hip Replacement, Other (See Below) Other Musculoskeletal Surgeries/Procedures:: hx of carpal tunnel repair Social & Family History - Family History Family Medical History: No Pertinent Family History Other Psychiatric Family History: 2 brothers with substance abuse problems[ Endocrine/Metabolic: Reports: Diabetes, type II - Tobacco Use Tobacco Use Status *Q: Current Every Day Tobacco User Years of Tobacco use: 10 Packs/Tins Daily: 1 - Caffeine Use Caffeine Use: Reports: Coffee, Energy Drinks, Soda Caffeine Use Comment: patient is lethargic to answer questions - Recreational Drug Use Recreational Drug Use: Yes Recreational Drug Type: Reports: Marijuana/Hashish Recreational Drug Use Frequency: Daily - Living Situation & Occupation Living situation: Reports: Occupation: Employed (has 2 children which she shares with jerry, mother has been living with her while she convalesces from DKA and mentla health issues. lizeth at [facility]) ED ROS GENERAL - Review of Systems Review Of Systems: See Below Constitutional: Reports: Weakness, Fatigue HEENT: Reports: No Symptoms Respiratory: Reports: No Symptoms Cardiovascular: Reports: No Symptoms Endocrine: Reports: No Symptoms GI/Abdominal: Reports: No Symptoms : Reports: No Symptoms Musculoskeletal: Reports: Muscle Pain (legs and hip region) Skin: Reports: No Symptoms Neurological: Reports: Trouble Speaking Psychiatric: Reports: Depression Hematologic/Lymphatic: Reports: No Symptoms Immunologic: Reports: No Symptoms ED EXAM, GENERAL - Physical Exam Exam: See Below General Appearance: Alert, WD/WN, No Apparent Distress (Adult female, lying on ER cart resting.) Eye Exam: Bilateral Eye: PERRL Ears: Normal External Exam, Normal Canal, Hearing Grossly Normal Nose: Normal Inspection, Normal Mucosa Throat/Mouth: Normal Inspection, Normal Lips, Normal Oropharynx, Normal Voice Head: Atraumatic, Normocephalic Neck: Supple Respiratory/Chest: No Respiratory Distress, Lungs Clear Cardiovascular: Regular Rate, Rhythm, No Murmur GI/Abdominal: Normal Bowel Sounds, Soft (Female) Exam: Deferred Rectal (Female) Exam: Deferred Back Exam: Normal Inspection Extremities: Other (Note right BKA) Neurological: Alert, Oriented, CN II-XII Intact Psychiatric: Anxious Skin Exam: Warm, Dry, Intact, Normal Color Lymphatic: No Adenopathy Course - Vital Signs Text/Narrative:: 0730 The patient was seen by the JOINT FINISHER. Labs ordered. She was given a liter of fluid. 0845 Labs reviewed. Note Ffhunce=390 and Anion Gap open. (approx 16). She was given Regular Insulin 10units IVP and fluids were infusing. 0925 Dr Charlene Monroe contacted and case presented. Will plan acute admission. RN had rechecked blood sugar and it was in the 300s. Patient had apparently received bad news that she was losing custody of her children. She had not yet been sent upstairs fro admission and demanded to leave. She signed out AMA. Last Recorded V/S: Last Vital Signs Temp 36.9 C 06/23/21 06:25 Pulse 85 06/23/21 06:25 Resp 18 06/23/21 06:25 BP 146/94 H 06/23/21 06:25 Pulse Ox 98 06/23/21 06:25 - Orders/Labs/Meds Orders: Active Orders 24 hr Category Date Time Status Dextrose 50% in Water Med 06/23/21 08:07 Active 50 ml IVPUSH ASDIRECTED PRN Dextrose 50% in Water Med 06/23/21 08:13 Active 50 ml IVPUSH ASDIRECTED PRN Glucagon,Human Recombinant [GlucaGen] Med 06/23/21 08:07 Active 1 mg IM ASDIRECTED PRN Glucagon,Human Recombinant [GlucaGen] Med 06/23/21 08:13 Active 1 mg IM ASDIRECTED PRN Sodium Chloride 0.9% [Saline Flush] Med 06/23/21 07:56 Active 10 ml FLUSH ASDIRECTED PRN Saline Lock Insert [OM.PC] Stat Oth 06/23/21 07:56 Ordered Medication Orders Dextrose/Water (50% Dextrose In Water 50 Ml Syringe) 50 ml IVPUSH ASDIRECTED PRN PRN Reason: Hypoglycemia Dextrose/Water (50% Dextrose In Water 50 Ml Syringe) 50 ml IVPUSH ASDIRECTED PRN PRN Reason: Hypoglycemia Glucagon (Glucagon,Human Recombinant 1 Mg Vial) 1 mg IM ASDIRECTED PRN PRN Reason: Hypoglycemia Glucagon (Glucagon,Human Recombinant 1 Mg Vial) 1 mg IM ASDIRECTED PRN PRN Reason: Hypoglycemia Sodium Chloride (Sodium Chloride 0.9% 10 Ml Syringe) 10 ml FLUSH ASDIRECTED PRN PRN Reason: Keep Vein Open Labs: Laboratory Tests 06/23/21 06/23/21 06/23/21 Range/Units 06:35 06:55 06:55 WBC 6.9 (4.0-10.0) x10^3/uL RBC 4.39 (4.00-5.50) x10^6/uL Hgb 12.6 (12.0-16.0) g/dL Hct 35.0 (33.0-47.0) % MCV 79.7 (78.0-93.0) fL MCH 28.7 (26.0-32.0) pg MCHC 36.0 (32.0-36.0) g/dL RDW Coeff of Roderick 12.6 (10.0-15.0) % Plt Count 213 (130-400) x10^3/uL Immature Gran % (Auto) 0.10 (0.00-0.43) % Neut % (Auto) 61.6 (50.0-80.0) % Lymph % (Auto) 26.9 (25.0-50.0) % Hur[place] % (Auto) 5.6 (2.0-11.0) % Eos % (Auto) 5.1 H (0.0-4.0) % Baso % (Auto) 0.7 (0.2-1.2) % Neut # (Auto) 4.3 (1.8-7.7) x10^3/uL Lymph # (Auto) 1.9 (1.0-4.8) x10^3/uL Hur[place] # (Auto) 0.4 (0.0-0.8) x10^3/uL Eos # (Auto) 0.4 (0.0-0.5) x10^3/uL Baso # (Auto) 0.1 (0.0-0.2) x10^3/uL Immature Gran # (Auto) 0.01 (0.00-0.07) x10^3/uL Sodium 129 L* D (136-145) mmol/L Potassium 4.4 (3.5-5.1) mmol/L Chloride 93 L (98-107) mmol/L Carbon Dioxide 22 (21-32) mmol/L Anion Gap 18.4 H (5-15) mmol/L BUN 17 (7-18) mg/dL Creatinine 0.8 (0.55-1.02) mg/dL Est Cr Clr Drug Dosing 99.64 mL/min Estimated GFR (MDRD) > 60 Glucose 724 H* (70-99) mg/dL POC Glucose > 592 H* (70-99) mg/dL Calcium 8.0 L (8.5-10.1) mg/dL Corrected Calcium 8.6 (8.5-10.1) mg/dL Magnesium 1.9 (1.8-2.4) mg/dL Total Bilirubin 0.9 (0.2-1.0) mg/dL AST 26 (15-37) U/L ALT 41 (14-59) U/L Alkaline Phosphatase 148 H (46-116) U/L Total Protein 6.1 L (6.4-8.2) g/dL Albumin 3.2 L (3.4-5.0) g/dL Globulin 2.9 Albumin/Globulin Ratio 1.10 TSH, Ultra Sensitive 0.590 (0.358-3.74) uIU/mL Urine HCG, Qual (NEGATIVE) Salicylates (2.8-20(Therapeutic)) mg/dL Urine Opiates Screen (NEGATIVE) Ur Buprenorphine Scrn (NEGATIVE) Ur Oxycodone Screen (NEGATIVE) Urine Methadone Screen (NEGATIVE) Acetaminophen 0 L (10-30) ug/ml Ur Barbiturates Screen (NEGATIVE) Ur Phencyclidine Scrn (NEGATIVE) Ur Amphetamine Screen (NEGATIVE) U Methamphetamines Scrn (NEGATIVE) Urine MDMA Screen (NEGATIVE) U Benzodiazepines Scrn (NEGATIVE) U Cocaine Metab Screen (NEGATIVE) U Marijuana (THC) Screen (NEGATIVE) Ethyl Alcohol < 3 (0-3) mg/dL 06/23/21 06/23/21 06/23/21 Range/Units 06:55 07:15 07:15 WBC (4.0-10.0) x10^3/uL RBC (4.00-5.50) x10^6/uL Hgb (12.0-16.0) g/dL Hct (33.0-47.0) % MCV (78.0-93.0) fL MCH (26.0-32.0) pg MCHC (32.0-36.0) g/dL RDW Coeff of Roderick (10.0-15.0) % Plt Count (130-400) x10^3/uL Immature Gran % (Auto) (0.00-0.43) % Neut % (Auto) (50.0-80.0) % Lymph % (Auto) (25.0-50.0) % [place] % (Auto) (2.0-11.0) % Eos % (Auto) (0.0-4.0) % Baso % (Auto) (0.2-1.2) % Neut # (Auto) (1.8-7.7) x10^3/uL Lymph # (Auto) (1.0-4.8) x10^3/uL [place] # (Auto) (0.0-0.8) x10^3/uL Eos # (Auto) (0.0-0.5) x10^3/uL Baso # (Auto) (0.0-0.2) x10^3/uL Immature Gran # (Auto) (0.00-0.07) x10^3/uL Sodium (136-145) mmol/L Potassium (3.5-5.1) mmol/L Chloride (98-107) mmol/L Carbon Dioxide (21-32) mmol/L Anion Gap (5-15) mmol/L BUN (7-18) mg/dL Creatinine (0.55-1.02) mg/dL Est Cr Clr Drug Dosing mL/min Estimated GFR (MDRD) Glucose (70-99) mg/dL POC Glucose (70-99) mg/dL Calcium (8.5-10.1) mg/dL Corrected Calcium (8.5-10.1) mg/dL Magnesium (1.8-2.4) mg/dL Total Bilirubin (0.2-1.0) mg/dL AST (15-37) U/L ALT (14-59) U/L Alkaline Phosphatase (46-116) U/L Total Protein (6.4-8.2) g/dL Albumin (3.4-5.0) g/dL Globulin Albumin/Globulin Ratio TSH, Ultra Sensitive (0.358-3.74) uIU/mL Urine HCG, Qual Negative (NEGATIVE) Salicylates 3.7 (2.8-20(Therapeutic)) mg/dL Urine Opiates Screen Negative (NEGATIVE) Ur Buprenorphine Scrn Positive H (NEGATIVE) Ur Oxycodone Screen Negative (NEGATIVE) Urine Methadone Screen Negative (NEGATIVE) Acetaminophen (10-30) ug/ml Ur Barbiturates Screen Negative (NEGATIVE) Ur Phencyclidine Scrn Negative (NEGATIVE) Ur Amphetamine Screen Negative (NEGATIVE) U Methamphetamines Scrn Negative (NEGATIVE) Urine MDMA Screen Negative (NEGATIVE) U Benzodiazepines Scrn Negative (NEGATIVE) U Cocaine Metab Screen Negative (NEGATIVE) U Marijuana (THC) Screen Negative (NEGATIVE) Ethyl Alcohol (0-3) mg/dL Meds: Medications Generic Name Dose Route Start Last Admin Trade Name Jana PRN Reason Stop Dose Admin Dextrose/Water 50 ml 06/23/21 08:07 50% Dextrose In Water 50 Ml Syringe IVPUSH ASDIRECTED PRN Hypoglycemia Dextrose/Water 50 ml 06/23/21 08:13 50% Dextrose In Water 50 Ml Syringe IVPUSH ASDIRECTED PRN Hypoglycemia Glucagon 1 mg 06/23/21 08:07 Glucagon,Human Recombinant 1 Mg Vial IM ASDIRECTED PRN Hypoglycemia Glucagon 1 mg 06/23/21 08:13 Glucagon,Human Recombinant 1 Mg Vial IM ASDIRECTED PRN Hypoglycemia Sodium Chloride 10 ml 06/23/21 07:56 Sodium Chloride 0.9% 10 Ml Syringe FLUSH ASDIRECTED PRN Keep Vein Open Discontinued Medications Generic Name Dose Route Start Last Admin Trade Name Jana PRN Reason Stop Dose Admin Sodium Chloride 1,000 mls @ 999 mls/hr 06/23/21 07:59 06/23/21 08:13 Normal Saline IV 06/23/21 08:59 999 mls/hr ONETIME ONE Administration Insulin Human Lispro 20 unit 06/23/21 08:07 Insulin Lispro 100 Units/Ml 3 Ml Vial SUBCUT 06/23/21 08:08 ONETIME ONE Insulin Human Regular 10 unit 06/23/21 08:13 06/23/21 08:20 Insulin Regular, Human 100 Units/Ml 3 Ml Vial IVPUSH 06/23/21 08:14 10 units ONETIME ONE Administration Departure - Departure Time of Disposition: 09:26 Disposition: Against Medical Advice 07 Condition: Good Clinical Impression: DKA, type 1 Qualifiers: Diabetes mellitus complication detail: without coma Qualified Code(s): E10.10 - Type 1 diabetes mellitus with ketoacidosis without coma - Discharge Information Sepsis Event Note (ED) - Evaluation Sepsis Screening Result: No Definite Risk - Focused Exam Vital Signs: Vital Signs Temp Pulse Resp BP Pulse Ox 06/23/21 06:25 36.9 C 85 18 146/94 H 98 - Problem List & Annotations (1) DKA, type 1 SNOMED Code(s): 82701111, 19956238 Code(s): E10.10 - TYPE 1 DIABETES MELLITUS WITH KETOACIDOSIS WITHOUT COMA S tatus: Acute Current Visit: Yes Annotation/Comment:: -IV fluids and Regular Insulin 10 units IVP given in the ER. Plan Acute admission. Dr Charlene Monroe to assume care. Qualifiers: Diabetes mellitus complication detail: without coma Qualified Code(s): E10.10 - Type 1 diabetes mellitus with ketoacidosis without coma (2) Hx of substance abuse SNOMED Code(s): 378067264 Code(s): F19.11 - OTHER PSYCHOACTIVE SUBSTANCE ABUSE, IN REMISSION Status: Acute Current Visit: No Annotation/Comment:: Hx of Meth/Opiate abuse. UDS positive for Bupenorphine today and otherwise negative. - Problem List Review Problem List Initiated/Reviewed/Updated: Yes - My Orders Last 24 Hours: My Active Orders 06/23/21 07:56 Sodium Chloride 0.9% [Saline Flush] 10 ml FLUSH ASDIRECTED PRN Saline Lock Insert [OM.PC] Stat 06/23/21 08:07 Dextrose 50% in Water 50 ml IVPUSH ASDIRECTED PRN Glucagon,Human Recombinant [GlucaGen] 1 mg IM ASDIRECTED PRN 06/23/21 08:13 Dextrose 50% in Water 50 ml IVPUSH ASDIRECTED PRN Glucagon,Human Recombinant [GlucaGen] 1 mg IM ASDIRECTED PRN - Assessment/Plan Last 24 Hours: My Active Orders 06/23/21 07:56 Sodium Chloride 0.9% [Saline Flush] 10 ml FLUSH ASDIRECTED PRN Saline Lock Insert [OM.PC] Stat 06/23/21 08:07 Dextrose 50% in Water 50 ml IVPUSH ASDIRECTED PRN Glucagon,Human Recombinant [GlucaGen] 1 mg IM ASDIRECTED PRN 06/23/21 08:13 Dextrose 50% in Water 50 ml IVPUSH ASDIRECTED PRN Glucagon,Human Recombinant [GlucaGen] 1 mg IM ASDIRECTED PRN Plan: See admit orders per Dr Charlene Monroe
[2021-06-23] MEDS ORDERED: Glucagon,Human Recombinant 1 MG Vial IM PRN ×2 (08:07→08:13)
[2021-06-23] MEDS ORDERED: Insulin Lispro 100 Units/ML 3 ML Vial SUBCUT ONE (08:07)
[2021-06-23] MEDS ORDERED: 50% Dextrose in Water 50 ML Syringe IVPUSH PRN ×2 (08:07→08:13)
[2021-06-23] MEDS: Sodium Chloride 0.9% 1,000 ML IV ONE (08:13)
[2021-06-23] MEDS: Insulin Regular, Human 100 Units/ML 3 ML Vial IVPUSH ONE (08:20)
== END 2021-06-23 10:25 | disposition left against medical advice (07) ==
LOC: VM.ED 06:23 → UNDODISIN 10:10 → VM.MS 10:10 → UNDOADMIN 10:10
DX: E10.10 Type 1 diabetes mellitus with ketoacidosis without coma (principal); F19.11 Other psychoactive substance abuse, in remission; H54.7 Unspecified visual loss; I10 Essential (primary) hypertension; K58.9 Irritable bowel syndrome, unspecified; Z87.11 Personal history of peptic ulcer disease; K21.9 Gastro-esophageal reflux disease without esophagitis; R32 Unspecified urinary incontinence; E10.40 Type 1 diabetes mellitus with diabetic neuropathy, unspecified; F31.9 Bipolar disorder, unspecified; F41.9 Anxiety disorder, unspecified; D57.1 Sickle-cell disease without crisis; F17.210 Nicotine dependence, cigarettes, uncomplicated; Z88.8 Allergy status to other drugs, medicaments and biological substances; Z79.4 Long term (current) use of insulin; Z79.899 Other long term (current) drug therapy
CPT/HCPCS: 36415; 80053; 80143; 80179; 80305-QW; 80307; 81025; 82947; 83735; 84443; 85025; 99284; J1815-GY; J7030

== ENCOUNTER 2021-06-23 21:36 | Observation (INO) | payer MEDICAID ==
[2021-06-23] MEDS ORDERED: Sodium Chloride 0.9% 10 ML Syringe FLUSH PRN (21:53)
[2021-06-23] MEDS ORDERED: Sodium Chloride 0.9% 1,000 ML IV ONE (21:54)
[2021-06-23] MEDS ORDERED: Ondansetron 4 MG/2 ML SDV IVPUSH ONE (21:54)
[2021-06-23] MEDS ORDERED: Aspirin 81 MG Tab.Chew PO ONE (22:00)
--- NOTE | 2021-06-23 22:00 | EDM.PDOC ---
ED HPI GENERAL MEDICAL PROBLEM - General Stated Complaint: CHEST PAIN Time Seen by Provider: 06/23/21 21:47 Source of Information: Reports: Patient, EMS - History of Present Illness INITIAL COMMENTS - FREE TEXT/NARRATIVE: Siobhan is a 40 y/o female who comes to the ER by ambulance. She reports that she started to have chest pain prior to calling 911. She was seen earlier today in the ER for DKA and was going to be admitted. She then apparently had found out that she lost custody of her children and she became distraught and left the hospital AMA. She reports that she has been at home resting all day until tonight when the chest pain woke her up. Chest Pain Score (Numeric/FACES): 8 - Related Data Allergies Allergy/AdvReac Type Severity Reaction Status Date / Time ibuprofen AdvReac Stomach Verified 06/23/21 22:45 Upset Home Meds: Home Meds atorvaSTATin [Lipitor] 10 mg PO BEDTIME 07/09/17 [History] Acetaminophen [Tylenol Extra Strength] 1,000 mg PO TID 04/25/18 [History] Insulin Lispro [Humalog] 4 - 10 unit SUBCUT TIDMEALS 09/18/18 [History] PARoxetine [Paxil] 60 mg PO DAILY 02/04/19 [History] glucagon HCL [Glucagon HCl] 1 mg IM ASDIRECTED PRN 02/04/19 [History] Lidocaine 2% [Xylocaine 2% Jelly] 1 dose TP DAILY PRN 12/24/19 [History] Dextrose [Glucose] 16 gm PO ASDIRECTED PRN 04/05/20 [History] Promethazine [Phenergan] 12.5 mg PO QID PRN 04/05/20 [History] rOPINIRole [Requip] 0.5 mg PO BEDTIME 04/05/20 [History] risperiDONE 3 mg PO BEDTIME 04/05/20 [History] Buprenorphine/Naloxone [Buprenorphine-Naloxone 8 MG-2 MG] 1 tab SL TID 05/27/20 [History] Diphenhyd/Lidocaine/Nystatin [Magic Mouthwash] 30 ml SSPIT TID PRN 05/27/20 [History] Gabapentin [Neurontin] 800 mg PO TID 05/27/20 [History] Sucralfate [Carafate] 1 gm PO QID PRN 05/27/20 [History] Dexlansoprazole [Dexilant] 60 mg PO DAILY 08/30/20 [History] buPROPion HCL [Wellbutrin Xl] 150 mg PO DAILY 08/30/20 [History] Hydrocortisone [Hydrocortisone 2.5% Crm] 1 applic TOP BID PRN 09/29/20 [History] Insulin Glarg,Human.Rec.Analog [Lantus] 30 unit SUBCUT BEDTIME 09/29/20 [History] QUEtiapine [SEROquel] 1 - 2 tab PO BEDTIME PRN 09/29/20 [History] Past Medical History HEENT History: Reports: Impaired Vision Cardiovascular History: Reports: Blood Clots/VTE/DVT, Hypertension, Other (See Below) Other Cardiovascular History: blood clot R leg Respiratory History: Reports: Other (See Below) Other Respiratory History: hx of acute respiratory failure Gastrointestinal History: Reports: Irritable Bowel Syndrome, PUD Other Gastrointestinal History: acid reflux Genitourinary History: Reports: Urinary Incontinence, Other (See Below) Other Genitourinary History: hx of UTI, hx of acute kidney injury [employer] 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 [employer] History: Reports: Musculoskeletal History: Reports: Other (See Below) Other Musculoskeletal History: right foot drop Neurological History: Reports: Neuropathy, Diabetic Psychiatric History: Reports: Addiction, Anxiety, Bipolar, Depression, Psych Hospitalization(s), PTSD, Other (See Below) Other Psychiatric History: chronic narcotic use Endocrine/Metabolic History: Reports: Diabetes, Type I, Other (See Below) Other Endocrine/Metabolic History: 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, hx of ketoacidosis Hematologic History: Reports: Sickle Cell Anemia - Infectious Disease History Infectious Disease History: Reports: C-Difficile, MRSA - Past Surgical History HEENT Surgical History: Reports: Adenoidectomy, Tonsillectomy, Other (See Below) Other HEENT Surgeries/Procedures: nasal surgery GI Surgical History: Reports: Cholecystectomy, Other (See Below) Other GI Surgeries/Procedures: Esophagus/ stomach repair Musculoskeletal Surgical History: Reports: Hip Replacement, Other (See Below) Other Musculoskeletal Surgeries/Procedures:: hx of carpal tunnel repair Social & Family History - Family History Family Medical History: No Pertinent Family History Other Psychiatric Family History: 2 brothers with substance abuse problems[ Endocrine/Metabolic: Reports: Diabetes, type II - Caffeine Use Caffeine Use: Reports: Coffee, Energy Drinks, Soda Caffeine Use Comment: patient is lethargic to answer questions - Living Situation & Occupation Living situation: Reports: Occupation: Employed (has 2 children which she shares with jerry, mother has been living with her while she convalesces from DKA and mentla health issues. lizeth at [facility]) Review of Systems - Review of Systems Review Of Systems: See Below Constitutional: Reports: No Symptoms Eyes: Reports: No Symptoms Ears: Reports: No Symptoms Nose: Reports: No Symptoms Mouth/Throat: Reports: No Symptoms Respiratory: Reports: No Symptoms Cardiovascular: Reports: Chest Pain GI/Abdominal: Reports: No Symptoms, Nausea Genitourinary: Reports: No Symptoms Musculoskeletal: Reports: No Symptoms Skin: Reports: No Symptoms Neurological: Reports: No Symptoms Psychiatric: Reports: Depression, Anxiety ED EXAM, GENERAL - Physical Exam Exam: See Below General Appearance: Alert, WD/WN (adult female lying on ER cart and hyperventilating and holdign her chest. She had just finished having a bowel movement in the clothes and the nurse was cleaning her up.) Eye Exam: Bilateral Eye: PERRL Ears: Hearing Grossly Normal Nose: Normal Inspection, Normal Mucosa Throat/Mouth: Normal Inspection, Normal Lips, Normal Voice Neck: Normal Inspection, Supple Respiratory/Chest: No Respiratory Distress, Lungs Clear, Chest Non-Tender Cardiovascular: Normal Peripheral Pulses, Regular Rate, Rhythm, No Murmur GI/Abdominal: Normal Bowel Sounds, Soft (Female) Exam: Normal External Exam Rectal (Female) Exam: Hemorrhoids Back Exam: Normal Inspection, Full Range of Motion Extremities: Normal Inspection, Normal Range of Motion, Normal Capillary Refill, Other (Right BKA) Neurological: Alert, Oriented, CN II-XII Intact, Normal Cognition Psychiatric: Anxious, Tearful Skin Exam: Warm, Dry, Intact, Normal Color Course - Vital Signs Text/Narrative:: 2146 The patient was seen by the GEOPHYSICAL OBSERVER. Labs and EKG ordered. She was given ASA 324mg po. Will rule out HI, suspect her chest pain is behavioral. BS remained elevated at bedside at 498. IV fluids started, probable DKA continues. 2330 Labs reviewed. Note xivryic=167, Gap=30. IV fluids infusing. Regular Insulin [address] Charlene Monroe notified of pt in the ER and need for admission. Troponin pending. Patient resting in room. Last Recorded V/S: Last Vital Signs Temp 36.6 C 06/23/21 21:40 Pulse 118 H 06/23/21 23:06 Resp 20 06/23/21 23:06 BP 142/79 H 06/23/21 23:06 Pulse Ox 97 06/23/21 23:06 - Orders/Labs/Meds Orders: Active Orders 24 hr Category Date Time Status TROPONIN I HIGH SENSITIVITY [CHEM] Stat Lab 06/23/21 23:22 Ordered UA RFX JONATHAN AND CULT IF INDIC [URIN] Stat Lab 06/23/21 21:53 Ordered URINE DRUG SCREEN,POC [POC] Stat Lab 06/23/21 21:53 Ordered Dextrose 50% in Water Med 06/23/21 23:22 Ordered 50 ml IVPUSH ASDIRECTED PRN Glucagon,Human Recombinant [GlucaGen] Med 06/23/21 23:22 Ordered 1 mg IM ASDIRECTED PRN Sodium Chloride 0.9% [Saline Flush] Med 06/23/21 21:53 Active 10 ml FLUSH ASDIRECTED PRN Saline Lock Insert [OM.PC] Stat Oth 06/23/21 21:53 Ordered Medication Orders Dextrose/Water (50% Dextrose In Water 50 Ml Syringe) 50 ml IVPUSH ASDIRECTED PRN PRN Reason: Hypoglycemia Glucagon (Glucagon,Human Recombinant 1 Mg Vial) 1 mg IM ASDIRECTED PRN PRN Reason: Hypoglycemia Sodium Chloride (Sodium Chloride 0.9% 10 Ml Syringe) 10 ml FLUSH ASDIRECTED PRN PRN Reason: Keep Vein Open Labs: Laboratory Tests 06/23/21 06/23/21 06/23/21 Range/Units 21:42 22:10 22:10 WBC 7.9 (4.0-10.0) x10^3/uL RBC 4.97 (4.00-5.50) x10^6/uL Hgb 14.4 D (12.0-16.0) g/dL Hct 39.9 (33.0-47.0) % MCV 80.3 (78.0-93.0) fL MCH 29.0 (26.0-32.0) pg MCHC 36.1 H (32.0-36.0) g/dL RDW Coeff of Roderick 13.2 (10.0-15.0) % Plt Count 257 (130-400) x10^3/uL Immature Gran % (Auto) 0.10 (0.00-0.43) % Neut % (Auto) 67.4 (50.0-80.0) % Lymph % (Auto) 24.7 L (25.0-50.0) % [place] % (Auto) 3.7 (2.0-11.0) % Eos % (Auto) 3.2 (0.0-4.0) % Baso % (Auto) 0.9 (0.2-1.2) % Neut # (Auto) 5.3 (1.8-7.7) x10^3/uL Lymph # (Auto) 2.0 (1.0-4.8) x10^3/uL [place] # (Auto) 0.3 (0.0-0.8) x10^3/uL Eos # (Auto) 0.3 (0.0-0.5) x10^3/uL Baso # (Auto) 0.1 (0.0-0.2) x10^3/uL Immature Gran # (Auto) 0.01 (0.00-0.07) x10^3/uL POC ABG pH (7.35-7.45) pH POC ABG pCO2 (35-48) mmHg POC ABG pO2 (83-108) mmHg POC ABG HCO3 (21-28) mmol/L POC ABG Total CO2 (22-29) mmol/L POC ABG O2 Sat (94-98) % POC ABG Base Excess ((-2)-3) mmol/L POC FiO2 Sodium 137 (136-145) mmol/L Potassium 4.5 (3.5-5.1) mmol/L Chloride 98 (98-107) mmol/L Carbon Dioxide 9 L D (21-32) mmol/L Anion Gap 34.5 H (5-15) mmol/L BUN 13 (7-18) mg/dL Creatinine 0.8 (0.55-1.02) mg/dL Est Cr Clr Drug Dosing TNP Estimated GFR (MDRD) > 60 Glucose 570 H* (70-99) mg/dL POC Glucose 498 H* (70-99) mg/dL Calcium 8.8 (8.5-10.1) mg/dL Corrected Calcium 9.0 (8.5-10.1) mg/dL Magnesium 1.9 (1.8-2.4) mg/dL Total Bilirubin 1.0 (0.2-1.0) mg/dL AST 27 (15-37) U/L ALT 37 (14-59) U/L Alkaline Phosphatase 173 H (46-116) U/L C-Reactive Protein 1.5 H (<=0.9) mg/dL Total Protein 6.9 (6.4-8.2) g/dL Albumin 3.7 (3.4-5.0) g/dL Globulin 3.2 Albumin/Globulin Ratio 1.16 Ethyl Alcohol < 3 (0-3) mg/dL SARS CoV-2 RNA Rapid PRINCESS (NEGATIVE) 06/23/21 06/23/21 Range/Units 22:35 22:50 WBC (4.0-10.0) x10^3/uL RBC (4.00-5.50) x10^6/uL Hgb (12.0-16.0) g/dL Hct (33.0-47.0) % MCV (78.0-93.0) fL MCH (26.0-32.0) pg MCHC (32.0-36.0) g/dL RDW Coeff of Roderick (10.0-15.0) % Plt Count (130-400) x10^3/uL Immature Gran % (Auto) (0.00-0.43) % Neut % (Auto) (50.0-80.0) % Lymph % (Auto) (25.0-50.0) % [place] % (Auto) (2.0-11.0) % Eos % (Auto) (0.0-4.0) % Baso % (Auto) (0.2-1.2) % Neut # (Auto) (1.8-7.7) x10^3/uL Lymph # (Auto) (1.0-4.8) x10^3/uL [place] # (Auto) (0.0-0.8) x10^3/uL Eos # (Auto) (0.0-0.5) x10^3/uL Baso # (Auto) (0.0-0.2) x10^3/uL Immature Gran # (Auto) (0.00-0.07) x10^3/uL POC ABG pH 7.45 (7.35-7.45) pH POC ABG pCO2 13 L (35-48) mmHg POC ABG pO2 78 L (83-108) mmHg POC ABG HCO3 9.1 L (21-28) mmol/L POC ABG Total CO2 10.2 L (22-29) mmol/L POC ABG O2 Sat 96.6 (94-98) % POC ABG Base Excess -15 L ((-2)-3) mmol/L POC FiO2 21 Sodium (136-145) mmol/L Potassium (3.5-5.1) mmol/L Chloride (98-107) mmol/L Carbon Dioxide (21-32) mmol/L Anion Gap (5-15) mmol/L BUN (7-18) mg/dL Creatinine (0.55-1.02) mg/dL Est Cr Clr Drug Dosing Estimated GFR (MDRD) Glucose (70-99) mg/dL POC Glucose (70-99) mg/dL Calcium (8.5-10.1) mg/dL Corrected Calcium (8.5-10.1) mg/dL Magnesium (1.8-2.4) mg/dL Total Bilirubin (0.2-1.0) mg/dL AST (15-37) U/L ALT (14-59) U/L Alkaline Phosphatase (46-116) U/L C-Reactive Protein (<=0.9) mg/dL Total Protein (6.4-8.2) g/dL Albumin (3.4-5.0) g/dL Globulin Albumin/Globulin Ratio Ethyl Alcohol (0-3) mg/dL SARS CoV-2 RNA Rapid PRINCESS Negative (NEGATIVE) Meds: Medications Generic Name Dose Route Start Last Admin Trade Name Freq PRN Reason Stop Dose Admin Dextrose/Water 50 ml 06/23/21 23:22 50% Dextrose In Water 50 Ml Syringe IVPUSH ASDIRECTED PRN Hypoglycemia Glucagon 1 mg 06/23/21 23:22 Glucagon,Human Recombinant 1 Mg Vial IM ASDIRECTED PRN Hypoglycemia Sodium Chloride 10 ml 06/23/21 21:53 Sodium Chloride 0.9% 10 Ml Syringe FLUSH ASDIRECTED PRN Keep Vein Open Discontinued Medications Generic Name Dose Route Start Last Admin Trade Name Freq PRN Reason Stop Dose Admin Aspirin 324 mg 10/18/21 22:00 06/23/21 22:17 Aspirin 81 Mg Tab.Chew PO 06/23/21 22:01 Not Given ONETIME ONE Sodium Chloride 1,000 mls @ 999 mls/hr 06/23/21 21:54 06/23/21 22:17 Normal Saline IV 06/23/21 22:54 999 mls/hr ONETIME ONE Administration Insulin Human Regular 10 unit 06/23/21 23:22 Insulin Regular, Human 100 Units/Ml 3 Ml Vial IVPUSH 06/23/21 23:23 ONETIME ONE Ondansetron HCl 4 mg 06/23/21 21:54 06/23/21 22:19 Ondansetron 4 Mg/2 Ml Sdv IVPUSH 06/23/21 21:55 4 mg ONETIME ONE Administration Departure - Departure Time of Disposition: 23:45 Disposition: Admitted As Inpatient 68 Condition: Good Clinical Impression: DKA (diabetic ketoacidosis) Qualifiers: Diabetes mellitus type: type 1 Diabetes mellitus complication detail: without coma Qualified Code(s): E10.10 - Type 1 diabetes mellitus with ketoacidosis w ithout coma Chest pain Qualifiers: Chest pain type: unspecified Qualified Code(s): R07.9 - Chest pain, unspecified - Discharge Information Additional Instructions: -Admit to Acute Care Sepsis Event Note (ED) - Focused Exam Vital Signs: Vital Signs Temp Pulse Resp BP Pulse Ox 06/23/21 23:06 118 H 20 142/79 H 97 06/23/21 21:40 36.6 C 84 24 H 160/90 H 99 - Problem List & Annotations (1) DKA (diabetic ketoacidoses) SNOMED Code(s): 955780221, 563299467 Code(s): E13.10 - OTH DIABETES MELLITUS WITH KETOACIDOSIS WITHOUT COMA Status: Acute Priority: Medium Current Visit: No Annotation/Comment:: IV fluids and insulin given in ER. Plan Acute Admission. Qualifiers: Diabetes mellitus type: other specified (including YADI) Diabetes mellitus complication detail: with coma Qualified Code(s): E13.11 - Other specified diabetes mellitus with ketoacidosis with coma (2) Chest pain SNOMED Code(s): 46326122 Code(s): R07.9 - CHEST PAIN, UNSPECIFIED Status: Acute Current Visit: Yes Annotation/Comment:: EKG NSR, initialTroponin neg. Refuses ASA. Qualifiers: Chest pain type: unspecified Qualified Code(s): R07.9 - Chest pain, unspecified - Problem List Review Problem List Initiated/Reviewed/Updated: Yes - My Orders Last 24 Hours: My Active Orders 06/23/21 21:53 UA RFX JONATHAN AND CULT IF INDIC [URIN] Stat URINE DRUG SCREEN,POC [POC] Stat Sodium Chloride 0.9% [Saline Flush] 10 ml FLUSH ASDIRECTED PRN Saline Lock Insert [OM.PC] Stat 06/23/21 23:22 TROPONIN I HIGH SENSITIVITY [CHEM] Stat Dextrose 50% in Water 50 ml IVPUSH ASDIRECTED PRN Glucagon,Human Recombinant [GlucaGen] 1 mg IM ASDIRECTED PRN - Assessment/Plan Last 24 Hours: My Active Orders 06/23/21 21:53 UA RFX JONATHAN AND CULT IF INDIC [URIN] Stat URINE DRUG SCREEN,POC [POC] Stat Sodium Chloride 0.9% [Saline Flush] 10 ml FLUSH ASDIRECTED PRN Saline Lock Insert [OM.PC] Stat 06/23/21 23:22 TROPONIN I HIGH SENSITIVITY [CHEM] Stat Dextrose 50% in Water 50 ml IVPUSH ASDIRECTED PRN Glucagon,Human Recombinant [GlucaGen] 1 mg IM ASDIRECTED PRN
[2021-06-23 22:38] LABS: PCO2 ARTERIAL,POC 13 mmHg (35-48)
[2021-06-23 22:50] LABS: ANION GAP 34.5 mmol/L (5-15); CHLORIDE,CL 98 mmol/L (98-107); SODIUM,NA 137 mmol/L (136-145)
[2021-06-23] MEDS ORDERED: Glucagon,Human Recombinant 1 MG Vial IM PRN (23:22)
[2021-06-23] MEDS ORDERED: 50% Dextrose in Water 50 ML Syringe IVPUSH PRN (23:22)
[2021-06-23] MEDS ORDERED: Insulin Regular, Human 100 Units/ML 3 ML Vial IVPUSH ONE (23:22)
[2021-06-23 23:40] LABS: MARIJUANA,URINE NEGATIVE (NEGATIVE); METHYLENEDIOXYMETHAMP,UR NEGATIVE (NEGATIVE); PHENCYCLIDINE,URINE NEGATIVE (NEGATIVE)
[2021-06-23 23:43] LABS: BUPRENORPHINE,URINE POSITIVE (NEGATIVE)
[2021-06-24] MEDS ORDERED: Glucagon,Human Recombinant 1 MG Vial IM PRN ×3 (00:26→08:13)
[2021-06-24] MEDS ORDERED: Insulin Regular, Human 100 Units/ML 3 ML Vial IVPUSH ONE (00:26)
--- NOTE | 2021-06-24 00:33 | PCM.HP.2 ---
H&P History of Present Illness - General Date of Service: 06/24/21 Admit Problem/Dx: Admission Diagnosis/Problem Admission Diagnosis/Problem Diabetic ketoacidosis - History of Present Illness Initial Comments - Free Text/Narative: Siobhan is a 40-year-old female with a past medical history of uncontrolled type 1 diabetes, multiple admissions for DKA, hypertension, bipolar disorder, PTSD/anxiety/MDD, and chronic narcotic use who initially presented to the ER earlier this morning around 07 30 for evaluation of elevated blood sugars and muscle aches. Was found at that time to have blood sugars in the 700s and an anion gap of 18.4. Sodium level at that point was 129. This did respond to IV fluids and 10 units of regular insulin. Discussion was had about admitting patient to the hospital at that point for DKA however she left from the ER AMA. She came back to the ER around 930 this evening via ambulance for complaints of chest pain. Vital signs at time of presentation were notable for a slight tachycardia with rates in the 110s. Laboratory evaluation with a relatively normal WBC, BMP with significant bump in her anion gap from 18.4-34.5 this evening. Blood sugars running in the 500s. Alk phos of 173 and CRP of 1.4. Her cardiac work-up was relatively normal with an EKG with no ST segment or T wave changes. High- sensitivity troponin of 4. Urinalysis with no signs of UTI but 500 glucose and greater than 160 ketones. UDS was negative for any street drugs; positive only for her buprenorphine. Covid test was negative. ER provider did note that she had had 2 BM incontinent episodes in the bed while in the ER. Patient does admit to this provider that she spent most of the day sleeping and did not do well with hydrating at home after leaving AMA this morning. She does admit to some mild nausea as well as some mild abdominal pain. Chest Pain Score (Numeric/FACES): 8 - Related Data Allergies/Adverse Reactions: Allergies Allergy/AdvReac Type Severity Reaction Status Date / Time ibuprofen AdvReac Stomach Verified 06/23/21 22:45 Upset Home Medications: Home Meds atorvaSTATin [Lipitor] 10 mg PO BEDTIME 07/09/17 [History] Acetaminophen [Tylenol Extra Strength] 1,000 mg PO TID 04/25/18 [History] Insulin Lispro [Humalog] 4 - 10 unit SUBCUT TIDMEALS 09/18/18 [History] PARoxetine [Paxil] 60 mg PO DAILY 02/04/19 [History] glucagon HCL [Glucagon HCl] 1 mg IM ASDIRECTED PRN 02/04/19 [History] Lidocaine 2% [Xylocaine 2% Jelly] 1 dose TP DAILY PRN 12/24/19 [History] Dextrose [Glucose] 16 gm PO ASDIRECTED PRN 04/05/20 [History] Promethazine [Phenergan] 12.5 mg PO QID PRN 04/05/20 [History] rOPINIRole [Requip] 0.5 mg PO BEDTIME 04/05/20 [History] risperiDONE 3 mg PO BEDTIME 04/05/20 [History] Buprenorphine/Naloxone [Buprenorphine-Naloxone 8 MG-2 MG] 1 tab SL TID 05/27/20 [History] Diphenhyd/Lidocaine/Nystatin [Magic Mouthwash] 30 ml SSPIT TID PRN 05/27/20 [History] Gabapentin [Neurontin] 800 mg PO TID 05/27/20 [History] Sucralfate [Carafate] 1 gm PO QID PRN 05/27/20 [History] Dexlansoprazole [Dexilant] 60 mg PO DAILY 08/30/20 [History] buPROPion HCL [Wellbutrin Xl] 150 mg PO DAILY 08/30/20 [History] Hydrocortisone [Hydrocortisone 2.5% Crm] 1 applic TOP BID PRN 09/29/20 [History] Insulin Glarg,Human.Rec.Analog [Lantus] 30 unit SUBCUT BEDTIME 09/29/20 [Hi story] QUEtiapine [SEROquel] 1 - 2 tab PO BEDTIME PRN 09/29/20 [History] Past Medical History HEENT History: Reports: Impaired Vision Cardiovascular History: Reports: Blood Clots/VTE/DVT, Hypertension, Other (See Below) Other Cardiovascular History: blood clot R leg Respiratory History: Reports: Other (See Below) Other Respiratory History: hx of acute respiratory failure Gastrointestinal History: Reports: Irritable Bowel Syndrome, PUD Other Gastrointestinal History: acid reflux Genitourinary History: Reports: Urinary Incontinence, Other (See Below) Other Genitourinary History: hx of UTI, hx of acute kidney injury 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: Musculoskeletal History: Reports: Other (See Below) Other Musculoskeletal History: right foot drop Neurological History: Reports: Neuropathy, Diabetic Psychiatric History: Reports: Addiction, Anxiety, Bipolar, Depression, Psych Hospitalization(s), PTSD, Other (See Below) Other Psychiatric History: chronic narcotic use Endocrine/Metabolic History: Reports: Diabetes, Type I, Other (See Below) Other Endocrine/Metabolic History: 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, hx of ketoacidosis Hematologic History: Reports: Sickle Cell Anemia - Infectious Disease History Infectious Disease History: Reports: C-Difficile, MRSA - Past Surgical History HEENT Surgical History: Reports: Adenoidectomy, Tonsillectomy, Other (See Below) Other HEENT Surgeries/Procedures: nasal surgery GI Surgical History: Reports: Cholecystectomy, Other (See Below) Other GI Surgeries/Procedures: Esophagus/ stomach repair Musculoskeletal Surgical History: Reports: Hip Replacement, Other (See Below) Other Musculoskeletal Surgeries/Procedures:: hx of carpal tunnel repair Social & Family History - Family History Family Medical History: No Pertinent Family History Other Psychiatric Family History: 2 brothers with substance abuse problems[ Endocrine/Metabolic: Reports: Diabetes, type II - Tobacco Use Tobacco Use Status *Q: Unknown Ever Used Tobacco - Caffeine Use Caffeine Use: Reports: Coffee, Energy Drinks, Soda Caffeine Use Comment: patient is lethargic to answer questions - Living Situation & Occupation Living situation: Reports: Occupation: Employed (has 2 children which she shares with jerry, mother has been living with her while she convalesces from DKA and mentla health issues. lizeth at [facility]) H&P Review of Systems - Review of Systems: Review Of Systems: See Below General: Reports: Malaise, Fatigue HEENT: Reports: No Symptoms Pulmonary: Reports: No Symptoms Cardiovascular: Reports: No Symptoms, Other (CP improved) Gastrointestinal: Reports: Diarrhea, Nausea Genitourinary: Reports: No Symptoms Musculoskeletal: Reports: No Symptoms Skin: Reports: No Symptoms Psychiatric: Reports: No Symptoms Neurological: Reports: No Symptoms Hematologic/Lymphatic: Reports: No Symptoms Immunologic: Reports: No Symptoms Exam - Exam Exam: See Below - Vital Signs Vital Signs: Last Vital Signs Temp 98.5 F 06/24/21 00:24 Pulse 112 H 06/24/21 00:24 Resp 18 06/24/21 00:24 BP 107/59 L 06/24/21 00:24 Pulse Ox 97 06/24/21 00:24 Weight: 168 lb - Exam General: Alert, Oriented, Cooperative HEENT: Mucosa Moist & [place] Neck: Supple, Trachea Midline Lungs: Clear to Auscultation, Normal Respiratory Effort Cardiovascular: Regular Rhythm, Tachycardia GI/Abdominal Exam: Normal Bowel Sounds, Soft, Tender (mild, generalized) Extremities: Non-Tender, No Pedal Edema (LLE) Skin: Warm, Dry, Intact Neuro Extensive - Mental Status: Alert, Oriented x3 Psychiatric: Alert, Normal Mood - Patient Data Lab Results Last 24 hrs: Laboratory Results - last 24 hr 06/23/21 06/23/21 06/23/21 Range/Units 21:42 22:10 22:10 WBC 7.9 (4.0-10.0) x10^3/uL RBC 4.97 (4.00-5.50) x10^6/uL Hgb 14.4 D (12.0-16.0) g/dL Hct 39.9 (33.0-47.0) % MCV 80.3 (78.0-93.0) fL MCH 29.0 (26.0-32.0) pg MCHC 36.1 H (32.0-36.0) g/dL RDW Coeff of Roderick 13.2 (10.0-15.0) % Plt Count 257 (130-400) x10^3/uL Immature Gran % (Auto) 0.10 (0.00-0.43) % Neut % (Auto) 67.4 (50.0-80.0) % Lymph % (Auto) 24.7 L (25.0-50.0) % [place] % (Auto) 3.7 (2.0-11.0) % Eos % (Auto) 3.2 (0.0-4.0) % Baso % (Auto) 0.9 (0.2-1.2) % Neut # (Auto) 5.3 (1.8-7.7) x10^3/uL Lymph # (Auto) 2.0 (1.0-4.8) x10^3/uL [place] # (Auto) 0.3 (0.0-0.8) x10^3/uL Eos # (Auto) 0.3 (0.0-0.5) x10^3/uL Baso # (Auto) 0.1 (0.0-0.2) x10^3/uL Immature Gran # (Auto) 0.01 (0.00-0.07) x10^3/uL POC ABG pH (7.35-7.45) pH POC ABG pCO2 (35-48) mmHg POC ABG pO2 (83-108) mmHg POC ABG HCO3 (21-28) mmol/L POC ABG Total CO2 (22-29) mmol/L POC ABG O2 Sat (94-98) % POC ABG Base Excess ((-2)-3) mmol/L POC FiO2 Sodium 137 (136-145) mmol/L Potassium 4.5 (3.5-5.1) mmol/L Chloride 98 (98-107) mmol/L Carbon Dioxide 9 L D (21-32) mmol/L Anion Gap 34.5 H (5-15) mmol/L BUN 13 (7-18) mg/dL Creatinine 0.8 (0.55-1.02) mg/dL Est Cr Clr Drug Dosing TNP Estimated GFR (MDRD) > 60 Glucose 570 H* (70-99) mg/dL POC Glucose 498 H* (70-99) mg/dL Calcium 8.8 (8.5-10.1) mg/dL Corrected Calcium 9.0 (8.5-10.1) mg/dL Magnesium 1.9 (1.8-2.4) mg/dL Total Bilirubin 1.0 (0.2-1.0) mg/dL AST 27 (15-37) U/L ALT 37 (14-59) U/L Alkaline Phosphatase 173 H (46-116) U/L Troponin I High Sens (<=51) ng/L C-Reactive Protein 1.5 H (<=0.9) mg/dL Total Protein 6.9 (6.4-8.2) g/dL Albumin 3.7 (3.4-5.0) g/dL Globulin 3.2 Albumin/Globulin Ratio 1.16 Urine Color (YELLOW) Urine Appearance (CLEAR) Urine pH (5.0-8.0) Ur Specific [place] Urine Protein (NEGATIVE) mg/dL Urine Glucose (UA) (NEGATIVE) mg/dL Urine Ketones (NEGATIVE) mg/dL Urine Occult Blood (NEGATIVE) Urine Nitrite (NEGATIVE) Urine Bilirubin (NEGATIVE) Urine Urobilinogen (0.2) EU/dL Ur Leukocyte Esterase (NEGATIVE) Urine Opiates Screen (NEGATIVE) Ur Buprenorphine Scrn (NEGATIVE) Ur Oxycodone Screen (NEGATIVE) Urine Methadone Screen (NEGATIVE) Ur Barbituates Screen (NEGATIVE) Ur Phencyclidine Scrn (NEGATIVE) Ur Amphetamines Screen (NEGATIVE) U Methamphetamines Scrn (NEGATIVE) Urine MDMA Screen (NEGATIVE) U Benzodiazepines Scrn (NEGATIVE) Urine Cocaine Screen (NEGATIVE) U Marijuana (THC) Screen (NEGATIVE) Ethyl Alcohol < 3 (0-3) mg/dL SARS CoV-2 RNA Rapid PRINCESS (NEGATIVE) 06/23/21 06/23/21 06/23/21 Range/Units 22:10 22:35 22:50 WBC (4.0-10.0) x10^3/uL RBC (4.00-5.50) x10^6/uL Hgb (12.0-16.0) g/dL Hct (33.0-47.0) % MCV (78.0-93.0) fL MCH (26.0-32.0) pg MCHC (32.0-36.0) g/dL RDW Coeff of Roderick (10.0-15.0) % Plt Count (130-400) x10^3/uL Immature Gran % (Auto) (0.00-0.43) % Neut % (Auto) (50.0-80.0) % Lymph % (Auto) (25.0-50.0) % [place] % (Auto) (2.0-11.0) % Eos % (Auto) (0.0-4.0) % Baso % (Auto) (0.2-1.2) % Neut # (Auto) (1.8-7.7) x10^3/uL Lymph # (Auto) (1.0-4.8) x10^3/uL [place] # (Auto) (0.0-0.8) x10^3/uL Eos # (Auto) (0.0-0.5) x10^3/uL Baso # (Auto) (0.0-0.2) x10^3/uL Immature Gran # (Auto) (0.00-0.07) x10^3/uL POC ABG pH 7.45 (7.35-7.45) pH POC ABG pCO2 13 L (35-48) mmHg POC ABG pO2 78 L (83-108) mmHg POC ABG HCO3 9.1 L (21-28) mmol/L POC ABG Total CO2 10.2 L (22-29) mmol/L POC ABG O2 Sat 96.6 (94-98) % POC ABG Base Excess -15 L ((-2)-3) mmol/L POC FiO2 21 Sodium (136-145) mmol/L Potassium (3.5-5.1) mmol/L Chloride (98-107) mmol/L Carbon Dioxide (21-32) mmol/L Anion Gap (5-15) mmol/L BUN (7-18) mg/dL Creatinine (0.55-1.02) mg/dL Est Cr Clr Drug Dosing Estimated GFR (MDRD) Glucose (70-99) mg/dL POC Glucose (70-99) mg/dL Calcium (8.5-10.1) mg/dL Corrected Calcium (8.5-10.1) mg/dL Magnesium (1.8-2.4) mg/dL Total Bilirubin (0.2-1.0) mg/dL AST (15-37) U/L ALT (14-59) U/L Alkaline Phosphatase (46-116) U/L Troponin I High Sens 4 (<=51) ng/L C-Reactive Protein (<=0.9) mg/dL Total Protein (6.4-8.2) g/dL Albumin (3.4-5.0) g/dL Globulin Albumin/Globulin Ratio Urine Color (YELLOW) Urine Appearance (CLEAR) Urine pH (5.0-8.0) Ur Specific [place] Urine Protein (NEGATIVE) mg/dL Urine Glucose (UA) (NEGATIVE) mg/dL Urine Ketones (NEGATIVE) mg/dL Urine Occult Blood (NEGATIVE) Urine Nitrite (NEGATIVE) Urine Bilirubin (NEGATIVE) Urine Urobilinogen (0.2) EU/dL Ur Leukocyte Esterase (NEGATIVE) Urine Opiates Screen (NEGATIVE) Ur Buprenorphine Scrn (NEGATIVE) Ur Oxycodone Screen (NEGATIVE) Urine Methadone Screen (NEGATIVE) Ur Barbituates Screen (NEGATIVE) Ur Phencyclidine Scrn (NEGATIVE) Ur Amphetamines Screen (NEGATIVE) U Methamphetamines Scrn (NEGATIVE) Urine MDMA Screen (NEGATIVE) U Benzodiazepines Scrn (NEGATIVE) Urine Cocaine Screen (NEGATIVE) U Marijuana (THC) Screen (NEGATIVE) Ethyl Alcohol (0-3) mg/dL SARS CoV-2 RNA Rapid PRINCESS Negative (NEGATIVE) 06/23/21 06/23/21 Range/Units 23:36 23:36 WBC (4.0-10.0) x10^3/uL RBC (4.00-5.50) x10^6/uL Hgb (12.0-16.0) g/dL Hct (33.0-47.0) % MCV (78.0-93.0) fL MCH (26.0-32.0) pg MCHC (32.0-36.0) g/dL RDW Coeff of Roderick (10.0-15.0) % Plt Count (130-400) x10^3/uL Immature Gran % (Auto) (0.00-0.43) % Neut % (Auto) (50.0-80.0) % Lymph % (Auto) (25.0-50.0) % [place] % (Auto) (2.0-11.0) % Eos % (Auto) (0.0-4.0) % Baso % (Auto) (0.2-1.2) % Neut # (Auto) (1.8-7.7) x10^3/uL Lymph # (Auto) (1.0-4.8) x10^3/uL [place] # (Auto) (0.0-0.8) x10^3/uL Eos # (Auto) (0.0-0.5) x10^3/uL Baso # (Auto) (0.0-0.2) x10^3/uL Immature Gran # (Auto) (0.00-0.07) x10^3/uL POC ABG pH (7.35-7.45) pH POC ABG pCO2 (35-48) mmHg POC ABG pO2 (83-108) mmHg POC ABG HCO3 (21-28) mmol/L POC ABG Total CO2 (22-29) mmol/L POC ABG O2 Sat (94-98) % POC ABG Base Excess ((-2)-3) mmol/L POC FiO2 Sodium (136-145) mmol/L Potassium (3.5-5.1) mmol/L Chloride (98-107) mmol/L Carbon Dioxide (21-32) mmol/L Anion Gap (5-15) mmol/L BUN (7-18) mg/dL Creatinine (0.55-1.02) mg/dL Est Cr Clr Drug Dosing Estimated GFR (MDRD) Glucose (70-99) mg/dL POC Glucose (70-99) mg/dL Calcium (8.5-10.1) mg/dL Corrected Calcium (8.5-10.1) mg/dL Magnesium (1.8-2.4) mg/dL Total Bilirubin (0.2-1.0) mg/dL AST (15-37) U/L ALT (14-59) U/L Alkaline Phosphatase (46-116) U/L Troponin I High Sens (<=51) ng/L C-Reactive Protein (<=0.9) mg/dL Total Protein (6.4-8.2) g/dL Albumin (3.4-5.0) g/dL Globulin Albumin/Globulin Ratio Urine Color Yellow (YELLOW) Urine Appearance Clear (CLEAR) Urine pH 5.5 (5.0-8.0) Ur Specific [place] 1.015 Urine Protein Negative (NEGATIVE) mg/dL Urine Glucose (UA) 500 H (NEGATIVE) mg/dL Urine Ketones >=160 H (NEGATIVE) mg/dL Urine Occult Blood Negative (NEGATIVE) Urine Nitrite Negative (NEGATIVE) Urine Bilirubin Negative (NEGATIVE) Urine Urobilinogen 1.0 (0.2) EU/dL Ur Leukocyte Esterase Negative (NEGATIVE) Urine Opiates Screen Negative (NEGATIVE) Ur Buprenorphine Scrn Positive H (NEGATIVE) Ur Oxycodone Screen Negative (NEGATIVE) Urine Methadone Screen Negative (NEGATIVE) Ur Barbituates Screen Negative (NEGATIVE) Ur Phencyclidine Scrn Negative (NEGATIVE) Ur Amphetamines Screen Negative (NEGATIVE) U Methamphetamines Scrn Negative (NEGATIVE) Urine MDMA Screen Negative (NEGATIVE) U Benzodiazepines Scrn Negative (NEGATIVE) Urine Cocaine Screen Negative (NEGATIVE) U Marijuana (THC) Screen Negative (NEGATIVE) Ethyl Alcohol (0-3) mg/dL SARS CoV-2 RNA Rapid PRINCESS (NEGATIVE) Result Diagrams: 06/23/21 22:10 06/23/21 22:10 Sepsis Event Note - Evaluation Sepsis Screening Result: No Definite Risk - Focused Exam Vital Signs: Vital Signs Temp Pulse Resp BP Pulse Ox 06/24/21 00:24 98.5 F 112 H 18 107/59 L 97 06/23/21 23:06 118 H 20 142/79 H 97 06/23/21 21:40 98 F 84 24 H 160/90 H 99 - Problem List (1) DKA (diabetic ketoacidoses) SNOMED Code(s): 278970248, 584781055 ICD Code: E11.10 - TYPE 2 DIABETES MELLITUS WITH KETOACIDOSIS WITHOUT COMA Status: Acute Current Visit: Yes Qualifiers: Diabetes mellitus type: type 1 Diabetes mellitus complication detail: without coma Qualified Code(s): E10.10 - Type 1 diabetes mellitus with ketoacidosis without coma (2) Diarrhea SNOMED Code(s): 06940415 ICD Code: R19.7 - DIARRHEA, UNSPECIFIED Status: Acute Current Visit: Yes (3) Abdominal pain SNOMED Code(s): 03292089 ICD Code: R10.9 - UNSPECIFIED ABDOMINAL PAIN Status: Acute Current Visit: No Qualifiers: Abdominal location: unspecified location Qualified Code(s): R10.9 - Unspecified abdominal pain Problem List Initiated/Reviewed/Updated: Yes Orders Last 24hrs: Active Orders 24 hr Category Date Time Status Patient Status [ADT] Routine ADT 06/24/21 00:19 Ordered Blood Glucose Check, Bedside [RC] Q1HR Care 06/24/21 00:25 Ordered Blood Glucose Check, Bedside [RC] TIDMEALS Care 06/24/21 00:19 Ordered Oxygen Therapy [RC] PRN Care 06/24/21 00:19 Ordered Up With Assistance [RC] ASDIRECTED Care 06/24/21 00:19 Ordered VTE/DVT Education [RC] PER UNIT ROUTINE Care 06/24/21 00:19 Ordered Vital Signs [RC] Q4H Care 06/24/21 00:19 Ordered Full Liquid Diet [DIET] Diet 06/24/21 Breakfast Ordered COMPREHENSIVE METABOLIC PN,CMP [CHEM] AM Lab 06/24/21 05:11 Ordered MAGNESIUM [CHEM] AM Lab 06/24/21 05:11 Ordered Acetaminophen [TylenoL] Med 06/24/21 00:19 Ordered 650 mg PO Q4H PRN Dextrose 5%-1/2 Normal Saline @ 150 MLS/HR(1000ml) Med 06/24/21 00:30 Ordered Dextrose 5%-0.45% NaCl [Dextrose 5%-1/2 NS] 1,000 ml IV ASDIRECTED Dextrose 50% in Water Med 06/23/21 23:22 Active 50 ml IVPUSH ASDIRECTED PRN Enoxaparin [Lovenox] Med 06/24/21 08:00 Ordered 40 mg SUBCUT DAILY Glucagon,Human Recombinant [GlucaGen] Med 06/23/21 23:22 Active 1 mg IM ASDIRECTED PRN Glucagon,Human Recombinant [GlucaGen] Med 06/24/21 00:26 Ordered 1 mg IM ASDIRECTED PRN Insulin Regular, Human [HumuLIN R] Med 06/24/21 00:26 Once 10 unit IVPUSH ONETIME ONE Promethazine [Phenergan] Med 06/24/21 00:19 Ordered 25 mg PO Q6H PRN Sodium Chloride 0.9% [Saline Flush] Med 06/23/21 21:53 Active 10 ml FLUSH ASDIRECTED PRN Saline Lock Insert [OM.PC] Stat Oth 06/23/21 21:53 Ordered Resuscitation Status Routine Resus Stat 06/24/21 00:19 Ordered Medication Orders Acetaminophen (Acetaminophen 325 Mg Tab) 650 mg PO Q4H PRN PRN Reason: Pain (Mild 1-3)/fever Dextrose/Water (50% Dextrose In Water 50 Ml Syringe) 50 ml IVPUSH ASDIRECTED PRN PRN Reason: Hypoglycemia Enoxaparin Sodium (Enoxaparin 40 Mg/0.4 Ml Syringe) 40 mg SUBCUT DAILY VIVIANA Glucagon (Glucagon,Human Recombinant 1 Mg Vial) 1 mg IM ASDIRECTED PRN PRN Reason: Hypoglycemia Dextrose/Sodium Chloride (Dextrose 5%-1/2 Ns) 1,000 mls @ 150 mls/hr IV ASDIRECTED VIVIANA Promethazine HCl (Promethazine 25 Mg Tab) 25 mg PO Q6H PRN PRN Reason: nausea, able to take PO Sodium Chloride (Sodium Chloride 0.9% 10 Ml Syringe) 10 ml FLUSH ASDIRECTED PRN PRN Reason: Keep Vein Open Assessment/Plan Comment:: Siobhan is a 40yoF who is admitted on 06/24/21 for DKA. DKA Possible viral gastroenteritis -Patient with doubling of her anion gap throughout the day after leaving the ER this morning AMA -2 uncontrolled BM's in the ER. No sign of fever or leukocytosis Plan: -Admitting to the floor under observation status as patient often turns around within 24 to 48 hours -IVF: 1L NS followed by D5-0.45%Saline at 150mL/hr -Regular Insulin 10U now -Home Lantus 20U daily -Recheck CMP in 4 hours time -Blood glucose every hour until BS < 250 -Phenergan 25mg PO q4hr prn for nausea Diet: Liquid, advance tomorrow as tolerated DVT: Lovenox SQ CODE: FULL Disposition: Anticipate 1-2 midnights at max for DKA. Patient with longstanding history of recurrent admissions for diabetic ketoacidosis. Anticipate that we will be able to IV hydrate her and get her blood sugars down and close her anion gap relatively quickly. - Mortality Measure Prognosis:: Good
[2021-06-24] MEDS: Dextrose 5%-0.45% NaCl 1,000 ML IV SCH ×3 (00:56→13:04)
[2021-06-24] MEDS: Insulin Regular, Human 100 Units/ML 3 ML Vial IVPUSH PRN ×4 (02:10→05:07)
[2021-06-24] MEDS ORDERED: 50% Dextrose in Water 50 ML Syringe IVPUSH PRN ×2 (02:28→08:13)
[2021-06-24 07:29] LABS: CHLORIDE,CL 108 mmol/L (98-107); SODIUM,NA 141 mmol/L (136-145)
[2021-06-24 07:30] LABS: ANION GAP 15.6 mmol/L (5-15)
[2021-06-24] MEDS ORDERED: ClonazePAM 0.5 MG Tab PO PRN (08:13)
[2021-06-24] MEDS ORDERED: Sucralfate 1 GM Tab PO PRN (08:13)
[2021-06-24] MEDS ORDERED: QUEtiapine 100 MG Tab PO PRN (08:43)
[2021-06-24] MEDS: Promethazine 25 MG Tab PO PRN (09:22)
[2021-06-24] MEDS: buPROPion 150 MG Tab.ER PO SCH (09:22)
[2021-06-24] MEDS: Acetaminophen 325 MG Tab PO PRN (09:22)
[2021-06-24] MEDS: Gabapentin 400 MG Cap PO SCH ×3 (09:22→20:48)
[2021-06-24] MEDS: PARoxetine 20 MG Tab PO SCH (09:35)
[2021-06-24] MEDS: BUPRENORPHINE SL SCH ×2 (11:14→20:49)
[2021-06-24] MEDS: NALOXONE SL SCH ×2 (11:14→20:49)
[2021-06-24] MEDS: DEXLANSOPRAZOLE 60 MG PO SCH (11:14)
[2021-06-24] MEDS ORDERED: Insulin Lispro 100 Units/ML 3 ML Vial SUBCUT SCH (12:00)
[2021-06-24] MEDS ORDERED: INSULIN LISPRO 100 UNIT/ML SUBCUT SCH (12:00)
[2021-06-24] MEDS: Insulin Glarg,Human.Rec.Analog 100 Unit/ML SUBCUT SCH (15:59)
[2021-06-24] MEDS: Insulin Lispro 100 Units/ML 3 ML Vial SUBCUT SCH ×2 (16:02→17:50)
--- NOTE | 2021-06-24 16:19 | PN ---
Progress Note for ALBERTO BERNABE Date: 06/24/2021 Room #: VM.214 SUBJECTIVE: She was admitted right at midnight for diabetic ketoacidosis. The patient was actually in the ER in the morning and her blood sugars were over 700, but she had some very important legal things to get to and then unfortunately she did lose custody of her children. When we talked about her DKA, she did feel it could be the stress. She has, otherwise, felt well with no cough or fever. She has had the GI symptoms with diarrhea, but that is nothing new. This morning, she is not nauseous at all, she feels like eating something. Her blood sugar was around 100. She was awake and alert and ready to eat, but then about an hour later, it was down to 42 and she did get D50. She has been on IV fluids with D5. The patient appears very withdrawn, fatigued and tired compared to other visits. She has pain in her feet which from neuropathy, otherwise, no new pain. OBJECTIVE: Vital Signs: This morning, her temperature is 98.2, pulse 75, blood pressure 93/55, respiratory rate 20, and O2 96% on room air. General: She is in no acute distress. Heart: Regular rate and rhythm. S1, S2 without murmur. Lungs: Sounds are clear to auscultation bilaterally without crackles or wheezes. Extremities: Show the amputation. No wounds or sores on her legs. No edema. Mental Status: She is alert and orientated x3. LABORATORY WORK: This morning did show her to have sodium 141, potassium 3.6, chloride 108, bicarb 21, BUN 10, creatinine 0.7, glucose 117, magnesium 1.8, calcium 8.1 but corrected 9, ALT and AST are normal, alkaline phosphatase down to 140, albumin 2.9. She was positive for buprenorphine on her screen. Negative for COVID. Her white count was normal on admission yesterday. ASSESSMENT: 1. Diabetic ketoacidosis. The patient denies that she missed insulin but was under extreme stress yesterday with extreme hyperglycemia. 2. Type 1 diabetes, uncontrolled. 3. Essential hypertension. 4. Bipolar with posttraumatic stress disorder, anxiety, and depression. 5. Chronic opioid dependence, on Suboxone. 6. Painful diabetic neuropathy with previous amputation. 7. History of Clostridium difficile with recurrent episodes of nausea and diarrhea. She is not currently on any antibiotics, but has been taking some through the clinic for urinary tract infection. PLAN: We will check the patient for C. diff if we can get a stool sample. We will stop the D5 once blood sugars stabilize or become high. She is already supposed to get 5 units t.i.d. of meal insulin. We will give her Lantus early. We will encourage diet and anticipate if she is medically stable, she may return home in the next 24 to 48 hours. We will have her on Lovenox for DVT prophylaxis and continue her home medications for moods. MKA: 06/24/2021 15:34:40 MODL: 06/24/2021 16:15:05 /[id number] RENATO
[2021-06-24] MEDS ORDERED: rOPINIRole 0.5 MG Tab PO SCH (20:00)
[2021-06-24] MEDS ORDERED: Insulin Glarg,Human.Rec.Analog 100 Unit/ML SUBCUT SCH (20:00)
[2021-06-24] MEDS ORDERED: risperiDONE 1 MG Tab PO SCH (20:00)
[2021-06-24] MEDS ORDERED: Enoxaparin 40 MG/0.4 ML Syringe SUBCUT SCH (20:00)
[2021-06-24] MEDS ORDERED: Insulin Lispro 100 Units/ML 3 ML Vial SUBCUT PRN (21:51)
[2021-06-25 07:32] LABS: CHLORIDE,CL 111 mmol/L (98-107); SODIUM,NA 143 mmol/L (136-145)
[2021-06-25] MEDS: PARoxetine 20 MG Tab PO SCH (08:11)
[2021-06-25] MEDS: Promethazine 25 MG Tab PO PRN (08:11)
[2021-06-25] MEDS: Acetaminophen 325 MG Tab PO PRN (08:11)
[2021-06-25] MEDS: Gabapentin 400 MG Cap PO SCH (08:11)
[2021-06-25] MEDS: NALOXONE SL SCH (08:12)
[2021-06-25] MEDS: buPROPion 150 MG Tab.ER PO SCH (08:12)
[2021-06-25] MEDS: BUPRENORPHINE SL SCH (08:12)
[2021-06-25] MEDS: DEXLANSOPRAZOLE 60 MG PO SCH (08:12)
[2021-06-25] MEDS: Insulin Glarg,Human.Rec.Analog 100 Unit/ML SUBCUT SCH (08:12)
[2021-06-25] MEDS: Insulin Lispro 100 Units/ML 3 ML Vial SUBCUT SCH (08:13)
[2021-06-25 10:16] VITALS: BP 117/72; PULSE 80
--- NOTE | 2021-06-26 03:59 | DISCH ---
PRIMARY DISCHARGE DIAGNOSIS: Diabetic ketoacidosis, likely secondary to hyperglycemia with stress. SECONDARY DISCHARGE DIAGNOSES: 1. Type 1 diabetes, uncontrolled. 2. Essential hypertension. 3. Bipolar disorder with posttraumatic stress disorder, anxiety, and depression, worsened by recent custody hearings for her children. 4. Chronic opioid dependence, on Suboxone. 5. Painful diabetic neuropathy with previous amputation. 6. Diarrhea, actually resolved during her stay with history of Clostridium difficile and on previous treatments for that and also recent urinary tract infection treated with Bactrim for 5 days; however, she also got vancomycin for Clostridium difficile prophylaxis. REASON FOR ADMISSION: On the date of admission, this 40-year-old female, who is well known to our hospital for previous DKA admits, had been in earlier in the day with blood sugars over 700; however, she was not in DKA. She then returned later in the evening and her bicarb had worsened down to 9 and she was having vomiting and therefore she was admitted. She was placed on IV fluids and her blood sugars, which were 570, gradually resolved down overnight to even like 117 this morning; however, unfortunately, she did go down to 42 because even though she was on D5, she was not alert and awake enough to eat, even though I had talked to her earlier that morning, she was just very tired and depressed, she answered questions appropriately. She did receive that amp of D50 and then was subsequently started on meal insulin and encouraged to eat and the D5 saline was stopped and her blood sugar gradually went up from 104 to 246 to 345. She was getting her additional subcutaneous insulin. She got her 20 units of Lantus early instead of waiting till bedtime. The patient's electrolytes were monitored and appropriate, potassium and magnesium. Her tox screen showed only her bupropion; however, it was negative for benzodiazepines and she is reported to be taking Klonopin twice daily. The patient was having some gastroenteritis symptoms when she came in, but those were resolved and she had no further diarrhea. She had eaten 100% of her breakfast today and she was feeling better and able to go home. Blood sugar did come up into the 300s last evening, so she was given 3 units of insulin at bedtime, but did not require any further insulin during the night and this morning her blood sugar was 293 prior to getting her meal insulin. At home, she states she takes 7 units with each meal and then adjusts it based on carbs. Initially, she said she was on 40 of Lantus, but then did correct herself. The patient does have an upcoming appointment with Psychology on Wednesday to further discuss her moods. She had been working with [employer], but due to her health problems, she had not made visits with them. The patient currently is not under the care of Psychiatry, but has been referred and she is also waiting on a medical marijuana application for her painful diabetic neuropathy. The patient has had a previous amputation. PHYSICAL EXAMINATION: Vital Signs: Discharging Vitals: Temperature 98.5, pulse 80, blood pressure 117/72, respiratory rate 17, and O2 of 96 on room air. General: She is in no acute distress. Heart: Regular rate and rhythm. S1, S2 without murmur. Lungs: Lung sounds are clear to auscultation bilaterally without crackles or wheezes. Extremities: Warm and dry. No edema. Mental Status: Alert and orientated x3. Psych: She is depressed, but she is speaking appropriately, answering questions, talking about the custody situation and we discussed her overall health and the goal to get her feeling better. DISCHARGE PLANS AND INSTRUCTIONS: She will follow up in the clinic with Psychology on Wednesday and see me next week. No lab is due. She will resume insulin and speak with our health coach mechanic about getting her sensor working again for the Dexcom. MKA: 06/25/2021 19:20:15 MODL: 06/26/2021 01:18:06 /[id number]
== END 2021-06-25 10:35 | disposition home or self-care (01) ==
LOC: VM.ED 21:36 → INTOOBSV 23:55 → VM.MS 23:55 → VM.ED 23:55
PROVIDERS: ADMIT Nurse Practitioner Family; ATTEND Internal Medicine
DX: E10.10 Type 1 diabetes mellitus with ketoacidosis without coma (principal); E10.40 Type 1 diabetes mellitus with diabetic neuropathy, unspecified; F41.9 Anxiety disorder, unspecified; F32.9 Major depressive disorder, single episode, unspecified; F43.10 Post-traumatic stress disorder, unspecified; R19.7 Diarrhea, unspecified; I10 Essential (primary) hypertension; J96.00 Acute respiratory failure, unspecified whether with hypoxia or hypercapnia; K21.9 Gastro-esophageal reflux disease without esophagitis; F11.20 Opioid dependence, uncomplicated; Z20.822 Contact with and (suspected) exposure to COVID-19; Z88.8 Allergy status to other drugs, medicaments and biological substances; Z79.899 Other long term (current) drug therapy; Z98.890 Other specified postprocedural states
CPT/HCPCS: 36415; 36600; 80053; 80069; 80305-QW; 80307; 81003; 82803; 82947; 83735; 84484; 85025; 86140; 93005; 96372; 96374; 96375; 99284; 99285-25; A9270-GY; G0378; J1650; J1815-GY; J2405; J7030; J7042; U0002

== ENCOUNTER 2021-10-24 23:51 | Emergency (ER) | payer MEDICAID ==
[2021-10-25 00:23] LABS: BARBITURATE SCREEN,URINE NEGATIVE (NEGATIVE); BENZODIAZEPINES SCREEN,URINE NEGATIVE (NEGATIVE); BUPRENORPHINE SCREEN,URINE POSITIVE (NEGATIVE); METHAMPHETAMINE SCREEN, URINE NEGATIVE (NEGATIVE); THC SCREEN,URINE 50 NG/ML POSITIVE (NEGATIVE)
[2021-10-25] MEDS ORDERED: Sodium Chloride 0.9% 1,000 ML IV SCH (00:30)
[2021-10-25 00:32] LABS: CHLORIDE,CL 100 mmol/L (98-107); SODIUM,NA 134 mmol/L (136-145)
[2021-10-25] MEDS ORDERED: Iopamidol 612 MG/ML 100 ML Bottle IVPUSH ONE (01:05)
[2021-10-25 02:15] VITALS: BP 118/67; PULSE 94
== END 2021-10-25 01:28 | disposition home or self-care (01) ==
LOC: VM.ED 23:51
DX: K59.00 Constipation, unspecified (principal); I10 Essential (primary) hypertension; E11.40 Type 2 diabetes mellitus with diabetic neuropathy, unspecified; Z88.8 Allergy status to other drugs, medicaments and biological substances; Z79.899 Other long term (current) drug therapy; Z79.4 Long term (current) use of insulin; Z72.0 Tobacco use
CPT/HCPCS: 36415; 74177; 80053; 80305-QW; 81003; 81025; 82150; 83690; 85025; 86140; 99284; 99284-25; J7030; Q9967